=== PATIENT | male | born 1950 | race Caucasian/White ===

== ENCOUNTER 2023-03-16 08:22 | Outpatient (OUT) | payer MEDICARE, SELFPAY ==
[2023-03-16 09:51] LABS: Prostate Specific Antigen Dx <0.13 ng/mL (<=4.00)
== END 2023-03-16 08:23 | disposition home or self-care (01) ==
PROVIDERS: PCP Internal Medicine; Visit Provider Urology
DX: Z85.46 Personal history of malignant neoplasm of prostate (principal)
CPT/HCPCS: 36415; 84153

== ENCOUNTER 2024-03-20 10:20 | Outpatient (OUT) | payer MEDICARE, SELFPAY ==
[2024-03-20 11:45] LABS: Prostate Specific Antigen Dx <0.13 ng/mL (<=4.00)
== END 2024-03-20 10:21 | disposition home or self-care (01) ==
LOC: LAB 10:22
PROVIDERS: PCP Internal Medicine; Visit Provider Urology
DX: Z85.46 Personal history of malignant neoplasm of prostate (principal)
CPT/HCPCS: 36415; 84153

== ENCOUNTER 2024-04-01 10:32 | Outpatient (OUT) | payer MEDICARE, SELFPAY ==
--- NOTE | 2024-04-01 10:35 | US_ITS ---
The [address] [address] Patient Name: YUE DELGADILLO MRN: [id number] date: 1950 Sex: M Assigned Patient Location: Current Patient Location: Accession/Order Number: [id number] Exam Date: 04/01/2024 10:36 Report Date: 04/02/2024 06:26 At the request of: MAIA MADDOX Procedure: US scrotum EXAMINATION: US scrotum HISTORY: Hydrocele N43.3 COMPARISON: No relevant comparison available. TECHNIQUE: High-resolution sonographic imaging of the scrotum and contents was performed. FINDINGS: RIGHT: TESTICLE: Homogeneous echotexture. No visible mass. Color Doppler flow is present. Spectral Doppler demonstrates normal arterial waveform and flow, 2/1 cm/s (PSV/EDV), and normal venous wave flow averaging 1 cm/s. EPIDIDYMIS: Normal size and echogenicity. OTHER: None. LEFT: TESTICLE: Homogeneous echotexture. No visible mass. Color Doppler flow is present. Spectral Doppler demonstrates arterial waveform and flow, 4/2 cm/s (PSV/EDV), and normal venous flow averaging 2 cm/s. Incidental tiny testicular appendage. EPIDIDYMIS: Normal size and echogenicity. OTHER: Large hydrocele 8.5 x 6.7 x 6.1 cm. US/US scrotum IMPRESSION: 1. Large left scrotal hydrocele of uncertain etiology. 2. Unremarkable testicles and epididymides; no mass or findings to suggest epididymitis or orchitis. Electronically authenticated by: SAYRA BARLOW Date: 04/02/2024 06:26
== END 2024-04-01 10:33 | disposition home or self-care (01) ==
LOC: US 10:32
PROVIDERS: PCP Internal Medicine; Visit Provider Urology
DX: N43.3 Hydrocele, unspecified (principal)
CPT/HCPCS: 76870

== ENCOUNTER 2024-05-01 09:50 | Outpatient (OUT) | payer MEDICARE, SELFPAY ==
--- OUTSIDE RECORDS SUMMARY | 2024-05-01 10:08 | XMS_ITS | CCD ---
Author Organization [facility] Care Team Providers Care [employer] Name Role Phone BRIANNA BRUNNER Unavailable Unavailabl e GAYVENUST, MARGO ALLEN Unavailable Unavailable Hiestand, Brianna Yogi Unavailable Unavailabl e GAYVNEUST, MARGO ALLEN Unavailable Unavailable Hiestand, Brianna Calix Unavailable Unavailabl e HIESTAND, BRIANNA YOGI Unavailable Unavailabl Phylicia Melgar Unavailable Unavailable Myesha, Brianna Calix Unavailable UnavailBRIANNA Miller Primary Care Physician VARSHA ., DR CARVALHO Consulting Unavailable MADDOX ., DR CARVALHO Admitting Unavailable HIMARIANELA, DR BRIANNA Mcghee Primary Care Unavailable MADDOX ., DR CARVALHO Attending Unavailable MADDOX ., DR CARVALHO Admitting Unavailable MADDOX ., DR CARVALHO Attending Unavailable MYESHA, DR BRIANNA Mcghee Primary Care Unavailable MADDOX ., DR CARVALHO Consulting Unavailable MADDOX ., DR CARVALHO Consulting Unavailable MADDOX ., DR CARVALHO Admitting Unavailable MADDOX ., DR CARVALHO Attending Unavailable MYESHA, DR BRIANNA Mcghee Primary Care Unavailable Brianna Brunner MD Primary Care Provider NATALYA ROGER Referring Unavailable BRIANNA BRUNNER Primary Care Unavailable ALENA COLMENARES Attending Unavailable OSCAR JOHNSON Attending Unavailable BRIANNA BRUNNER Referring Unavailable BRIANNA BRUNNER Primary Care Unavailable OSCAR JOHNSON Attending Unavailable BRIANNA BRUNNER Referring Unavailable BRIANNA BRUNNER Primary Care Unavailable BRIANNA BRUNNER Primary Care Unavailable FADI MATA Attending Unavailable BALAJI LISA Consulting Unavailable TREY LUNDY Admitting Unavailable ELIS MONK Consulting Unavailable [facility] Consulting Unavailable SEAMUS MARINO Consulting Unavailable FADI MATA Attending Unavailable FADI MATA Referring Unavailable BRIANNA BRUNNER Primary Care Unavailable FADI MATA Attending Unavailable FADI MATA Referring Unavailable HIESTAND, BRIANNA Mcghee Primary Care Unavailable LOGAN ARANA Attending Unavailable HIESTAND, BRIANNA Mcghee Referring Unavailable HIESTAND, BRIANNA Mcghee Primary Care Unavailable HIESTAND, BRIANNA Mcghee Attending Unavailable HIESTAND, BRIANNA Mcghee Referring Unavailable HIESTAND, BRIANNA Mcghee Primary Care Unavailable HIESTAND, BRIANNA Mcghee Referring Unavailable HIESTAND, BRIANNA Mcghee Primary Care Unavailable DARIEN VIRGEN Attending Unavailable HIESTAND, BRIANNA Mcghee Attending Unavailable HIESTAND, BRIANNA cMghee Referring Unavailable HIESTAND, BRIANNA Mcghee Primary Care Unavailable HIESTAND, BRIANNA Mcghee Attending Unavailable HIESTAND, BRIANNA Mcghee Referring Unavailable HIESTAND, BRIANNA Mcghee Primary Care Unavailable HIESTAND, BRIANNA Mcghee Referring Unavailable HIESTAND, BRIANNA Mcghee Primary Care Unavailable HIESTAND, BRIANNA Mcghee Referring Unavailable HIESTAND, BRIANNA Mcghee Primary Care Unavailable LEIDY, REHAB Attending Unavailable HIESTAND, BRIANNA Mcghee Referring Unavailable HIESTAND, BRIANNA Mcghee Primary Care Unavailable LEXIE VILLAGOMEZ Attending Unavailable PHYLICIA GUNDERSON Attending Unavailable HIESTAND, BRIANNA Mcghee Referring Unavailable HIESTAND, BRIANNA Mcghee Primary Care Unavailable HIESTAND, BRIANNA Mcghee Attending Unavailable HIESTAND, BRIANNA Mcghee Referring Unavailable HIESTAND, BRIANNA Mcghee Primary Care Unavailable HIESTAND, BRIANNA Mcghee Attending Unavailable HIESTAND, BRIANNA Mcghee Referring Unavailable HIESTAND, BRIANNA Mcghee Primary Care Unavailable HIESTAND, BRIANNA Mcghee Referring Unavailable HIESTAND, BRIANNA Mcghee Primary Care Unavailable Maia MADDOX Attending Unavailable MADDOX, Maia Marie Attending Unavailable MADDOX, Maia Marie Attending Unavailable MADDOX, Maia R Attending Unavailable MADDOX, Maia R Attending Unavailable Allergies Allergy Classification Reported Allergen(s) Allergy Type Date of Onset Reaction(s) Facility (1 source) amoxicillin / clavulanate; Translations: [Augmentin] Drug Allergy [facility] Repository (20 sources) Ciprofloxacin; Translations: [ciprofloxacin] Drug Allergy 3 Anxiety (finding), [facility] (20 sources) Erythromycin; Translations: [erythromycin] Drug Allergy 3 Feeling nervous (finding), Hives [facility] (6 sources) pork allergenic extract; Translations: [Pork] Drug Allergy Weal (disorder) [facility] (1 source) Ciprofloxacin Drug Allergy [facility] Repository (1 source) Erythromycin Drug Allergy [facility] Repository (1 source) piperazine Drug Allergy [facility] Repository (1 source) Sulfonamides (Antibiotic) Drug allergy (disorder) [facility] Repository (20 sources) Codeine; Translations: [CODEINE] Drug Allergy 3 [facility] (20 sources) Lanolin; Translations: [LANOLIN] Drug Allergy 3 [facility] (20 sources) Lisinopril; Translations: [LISINOPRIL] Drug Allergy 3 Swelling [facility] (20 sources) meloxicam; Translations: [MELOXICAM] Drug Allergy 8 GI Disturbance [facility] (20 sources) pork allergenic extract; Translations: [PORK DERIVED (PORCINE)] Drug Allergy 1 [facility] Work Phone: (20 sources) Sulfonamides (Antibiotic); Translations: [SULFA (SULFONAMIDE ANTIBIOTICS)] Propensity to adverse reactions to drug 3 [facility] (1 source) Amoxicillin; Translations: [AMOXICILLIN] Drug Allergy 3 [facility] Repository (1 source) Terfenadine; Translations: [TERFENADINE] Drug Allergy 3 [facility] Repository (1 source) OTHER; Translations: [OTHER] Propensity to adverse reactions (disorder) 1 [facility] Repository Medications Current Medications Medication Drug Class(es) Dates Sig (Normalized) Sig (Original) [id number] 200 actuat albuterol 0.09 mg/actuat metered dose inhaler (20 sources) beta2-Adrenergic Agonist Start: 01-06-2024 take 2 puff(s) by inhalation every six hours as needed for wheezing albuterol (PROVENTIL HFA;VENTOLIN HFA) 90 mcg/actuation inhaler Inhale 2 puffs every 6 (six) hours as needed for wheezing. 18 g 01/06/2024 Active End: 01-06-2024 take 2 puff(s) by inhalation every six hours as needed for wheezing albuterol (PROVENTIL HFA;VENTOLIN HFA) 90 mcg/actuation inhaler Inhale 2 puffs every 6 (six) hours as needed for wheezing. 01/06/2024 Discontinued (Reorder) amLODIPine 10 mg oral tablet (20 sources) Dihydropyridine Calcium Channel Andry Start: 06-07-2020 End: 04-03-2024 take 1 tablet by mouth once daily in the morning amLODIPine (NORVASC) 10 mg tablet TAKE 1 TABLET BY MOUTH EVERY MORNING 30 tablet 04/03/2024 Active apixaban (6 sources) Factor Xa Inhibitor Start: 01-15-2024 End: 05-01-2024 take 2 tablets by mouth twice daily, then take 1 tablet by mouth twice daily apixaban (ELIQUIS DVT-PE TREAT 30D START) 5 mg (74 tabs) tablets,dose pack tablet Take 2 tablets by mouth twice daily for 7 days, then take 1 tablet twice daily 74 tablet 01/15/2024 05/01/2024 Discontinued Start: 01-15-2024 take 2 tablets by mo uth twice daily, then take 1 tablet by mouth twice daily apixaban (ELIQUIS DVT-PE TREAT 30D START) 5 mg (74 tabs) tablets,dose pack tablet Take 2 tablets by mouth twice daily for 7 days, then take 1 tablet twice daily 74 tablet 01/15/2024 Active aspirin 81 mg delayed release oral tablet (20 sources) Platelet Aggregation Inhibitor, Nonsteroidal Anti-inflammatory Drug Start: 06-07-2020 End: 12-31-2023 take 1 mg by mouth once daily aspirin 81 mg Oral EC Tab mg tab(s), Oral, Daily, Refills(s) 0 Start Date: 06/07/20 Status: Ordered Start: 06-07-2020 take 1 mg by mouth once daily aspirin 81 mg Oral EC Tab mg tab(s), Oral, Daily, Refills(s) 0 Start Date: 06/07/20 Status: Ordered azithromycin 250 mg oral tablet (1 source) Macrolide Antimicrobial Start: 05-21-2023 End: 05-25-2023 azithromycin (ZITHROMAX) 250 mg tablet Indications: Bronchitis Take 2 tablets the first day, then 1 tablet daily for 4 days. 6 tablet 0 05/21/2023 05/25/2023 Active cefdinir 300 mg oral capsule (1 source) Cephalosporin Antibacterial Start: 05-29-2023 End: 06-05-2023 take 1 capsule by mouth in the morning, then take 1 capsule by mouth at bedtime cefDINIR (OMNICEF) 300 mg capsule Take 1 capsule (300 mg total) by mouth in the morning and 1 capsule (300 mg total) before bedtime. Do all this for 7 days. 14 capsule 0 05/29/2023 06/05/2023 Active cefepime 100 mg/ml injectable solution (9 sources) Cephalosporin Antibacterial Start: 12-31-2023 End: 01-09-2024 take 2 g intravenously every eight hours cefepime 100 gram recon soln Infuse 2 g into a venous catheter every 8 (eight) hours for 9 days. 1 each 12/31/2023 01/09/2024 Active cefEPime 2,000 mg in sodium chloride 0.9 % 100 mL IVPB MINI-BAG Plus (9 sources) Start: 12-31-2023 End: 01-09-2024 take 2000 mg intravenously every eight hours cefEPime 2,000 mg in sodium chloride 0.9 % 100 mL IVPB MINI-BAG Plus Infuse 2,000 mg into a venous catheter every 8 (eight) hours for 9 days. 1 each 12/31/2023 01/09/2024 Active Start: 12-31-2023 End: 01-09-2024 take 2000 mg intravenously every eight hours cefEPime 2,000 mg in sodium chloride 0.9 % 100 mL IVPB MINI-BAG Plus Infuse 2,000 mg into a venous catheter every 8 (eight) hours for 9 days. 1 each 12/31/2023 01/09/2024 ciprofloxacin 3 mg/ml / dexamethasone 1 mg/ml otic suspension (13 sources) Corticosteroid, Quinolone Antimicrobial Start: 12-26-2023 End: 12-31-2023 4 drop, right ear, 2 times daily, First dose on Sun12/26/23 at 2100, Look-alike/sound-alike medication - verify indication for use. Start: 12-25-2023 End: 01-10-2024 ciprofloxacin-dexAMETHasone (CIPRODEX) otic suspension Indications: Acute swimmer's ear of right side Administer 4 drops to the right ear in the morning and 4 drops before bedtime. Do all this for 10 days. 7.5 mL 12/31/2023 01/10/2024 Active Fish Oils (5 sources) Start: 06-07-2020 take 1 mg by mouth once daily Fish Oil 1000 mg oral capsule mg cap(s), Oral, Daily, Refills(s) 0 Start Date: 06/07/20 Status: Ordered 120 actuat fluticasone propionate 0.11 mg/actuat metered dose inhaler (20 sources) Corticosteroid Start: 05-22-2023 End: 01-05-2024 take 2 puff(s) by inhalation once daily fluticasone propionate (FLOVENT HFA) 110 mcg/actuation inhaler Inhale 2 puffs once daily. Patient only takes when sick 12 g 3 01/06/2024 Active End: 05-22-2023 take 2 puff(s) by inhalation once daily fluticasone (FLOVENT HFA) 110 mcg/actuation inhaler Inhale 2 puffs once daily. Patient only takes when sick 0 05/22/2023 Discontinued (Reorder) hydroCHLOROthiazide 25 mg oral tablet (5 sources) Thiazide Diuretic Start: 06-07-2020 take 1 mg by mouth once daily hydrochlorothiazide 25 mg oral tablet mg tab(s), Oral, Daily, Refills(s) 0 Start Date: 06/07/20 Status: Ordered Multi Vitamin+ (5 sources) Start: 06-07-2020 Multi Vitamin+ Refill(s) 0 Start Date: 06/07/20 Status: Ordered xhgdjpiv-grox-LD-calcium &mins (THERAGRAN-M) 9 mg iron-400 mcg tablet (20 sources) uugllpvs-rden-WB -calciu m &mins (THERAGRAN-M) 9 mg iron-400 mcg tablet Take 1 tablet by mouth in the morning. ljsuxneu-kuhc-CN -calcium &mins (THERAGRAN-M) 9 mg iron-400 mcg tablet Take 1 tablet by mouth in the morning. Suspended fdjebjem-eosc-TQ -calcium &mins (THERAGRAN-M) 9 mg iron-400 mcg tablet Take 1 tablet by mouth in the morning. Active atifwfad-rign-LO -calcium &mins (THERAGRAN-M) 9 mg iron-400 mcg tablet Take 1 tablet by mouth in the morning. 0 Active nirmatrelvir-ritonavir (PAXLOVID) tablets (4 sources) Start: 01-03-2024 End: 01-08-2024 nirmatrelvir-ritonavir (PAXLOVID) tablets Take 3 tablets by mouth in the morning and 3 tablets before bedtime. Do all this for 5 days. For doses of 3 tablets - Take two 150 mg nirmatrelvir (pink) tablets at the same time as one 100 mg ritonavir (white) tablet per dose.. 30 tablet 01/03/2024 01/08/2024 Active omega-3 fatty acids-fish oil 300-1,000 mg capsule (20 sources) take 1 capsule by mouth once daily omega-3 fatty acids-fish oil 300-1,000 mg capsule Take 1,200 mg by mouth daily. take 1 capsule by mouth once maryellen ly omega-3 fatty acids-fish oil 300-1,000 mg capsule Take 1,200 mg by mouth daily. Suspended take 1 capsule by mouth once maryellen ly omega-3 fatty acids-fish oil 300-1,000 mg capsule Take 1,200 mg by mouth daily. Active take 1 capsule by mouth once maryellen ly omega-3 fatty acids-fish oil 300-1,000 mg capsule Take 1,200 mg by mouth daily. 0 Active omeprazole 20 mg delayed release oral capsule (20 sources) Proton Pump Inhibitor Start: 2022 End: 04-03-2024 take 2 capsules by mouth once daily in the morning omeprazole (PriLOSEC) 20 mg capsule TAKE 2 CAPSULES BY MOUTH EVERY MORNING 60 capsule 04/03/2024 Active Start: 06-07-2020 take 1 capsule by [facility] once daily omeprazole 20 mg Cap-DR 20 mg = 1 cap(s), Oral, Daily, # 30 cap(s), Refills(s) 0 Start Date: 06/07/20 Status: Ordered omeprazole 20 mg Cap-DR (1 source) Start: 06-07-2020 take 1 capsule by mouth once daily omeprazole 20 mg Cap-DR 20 mg = 1 cap(s), Oral, Daily, # 30 cap(s), Refills(s) 0 Start Date: 06/07/20 Status: Ordered simvastatin 20 mg oral tablet (20 sources) HMG-CoA Reductase Inhibitor Start: 06-07-2020 End: 05-07-2023 take 1 tablet by mouth once daily in the morning simvastatin (ZOCOR) 20 mg tablet TAKE ONE TABLET BY MOUTH EVERY MORNING 90 tablet 3 05/07/2023 Active traMADol hydrochloride 50 mg oral tablet (11 sources) Opioid Agonist Start: 12-26-2023 End: 12-31-2023 take 1 tablet by mouth every eight hours as needed for pain 75 mg, oral, Every 8 hours PRN, severe pain - pain scale 7-10, Starting on Sun12/26/23 at 1719, Look-alike/sound-a like medication - verify indication for use. Start: 12-19-2023 End: 01-05-2024 take 1 tablet by mouth every eight hours as needed for pain traMADoL (ULTRAM) 50 mg tablet Indications: Acute swimmer's ear of right side Take 1 tablet (50 mg total) by mouth every 8 (eight) hours as needed for pain for up to 5 days. 15 tablet 12/31/2023 01/05/2024 Active Completed/Discontinued Medications Medication Drug Class(es) Dates Sig (Normalized) Sig (Original) acetaminophen 500 mg oral tablet (1 source) Start: 12-26-2023 End: 12-28-2023 take 1 tablet by mouth every eight hours 1,000 mg, oral, Every 8 hours, First dose on Sun12/26/23 at 1730, For 2 days acetic acid 20 mg/ml / hydrocortisone 10 mg/ml otic solution (3 sources) Corticosteroid Start: 12-05-2023 End: 12-31-2023 hydrocortisone-ac etic acid (VOSOL-HC) otic solution Administer 4 drops to the right ear 3 (three) times a day. 10 mL 12/05/2023 12/31/2023 Discontinued (Stop Taking at Discharge) allopurinol 100 mg oral tablet (20 sources) Xanthine Oxidase Inhibitor Start: 12-27-2023 End: 12-31-2023 take 300 mg by mouth once daily 300 mg, oral, Daily, First dose on Sun12/27/23 at 0900, Look-alike/sound- alike medication - verify indication for use. Start: 06-07-2020 End: 05-07-2023 take 1 tablet by mouth once daily in the morning allopurinoL (ZYLOPRIM) 300 mg tablet TAKE ONE TABLET BY MOUTH EVERY MORNING 90 tablet 3 05/07/2023 Active amoxicillin 875 mg / clavulanate 125 mg oral tablet (3 sources) Penicillin-class Antibacterial Start: 12-20-2023 End: 01-03-2024 take 1 tablet by mouth once amoxicillin-pot clavulanate (AUGMENTIN) 875-125 mg per tablet Indications: Acute swimmer's ear of right side Take 1 tablet by mouth every 12 (twelve) hours for 14 days. 28 tablet 12/20/2023 12/31/2023 Discontinued (Stop Taking at Discharge) ampicillin-sulb actam (UNASYN) 3,000 mg in sodium chloride 0.9 % 100 mL IVPB-MBP (2 sources) Start: 12-27-2023 End: 12-27-2023 take 3000 mg intravenously every six hours 3,000 mg, intravenous, at 200 mL/hr, Administer over 30 Minutes, Every 6 hours, First dose (after last reorder) on Sun12/27/23 at 1015, ADD-VANTAGE/MBP- Discard 8 hours after activating; dissolve drug prior to administration., Indication: Skin and soft tissue infection Start: 12-26-2023 End: 12-26-2023 3,000 mg, intravenous, at 20 0 mL/hr, Administer over 30 Minutes, Once, On Sun12/26/23 at 1305, For 1 dose, ADD-VANTAGE/MBP- Discard 8 hours after activating; dissolve drug prior to administration., Indication: Skin and soft tissue infection atorvastatin 10 mg oral tablet (1 source) HMG-CoA Reductase Inhibitor Start: 12-27-2023 End: 12-31-2023 take 10 mg by mouth once daily 10 mg, oral, Daily, First dose on Sun12/27/23 at 0900, Look-alike/sound-alike medication - verify indication for use. cefEPime (MAXIPIME) 2,000 mg in sodium chloride 0.9 % 100 mL IVPB-MBP (1 source) Start: 12-27-2023 End: 12-31-2023 take 2000 mg intravenously every eight hours 2,000 mg, intravenous, at 25 mL/hr, Administer over 4 Hours, Every 8 hours, First dose on Sun12/27/23 at 2130, ADD-VANTAGE/MBP- Discard 24 hours after activating; dissolve drug prior to administration. Protect dry powder vial from light., Indication: Other, Specify: otomastoiditis 1 ml dexamethasone phosphate 10 mg/ml injection (1 source) Corticosteroid Start: 12-27-2023 End: 12-28-2023 take 10 mg intravenously every eight hours 10 mg, intravenous, Every 8 hours, First dose on Sun12/27/23 at 1345, For 3 doses, May alter blood glucose or insulin requirements. Look-alike/sound-alike medication - verify indication for use. dexamethasone 1 mg/ml / tobramycin 3 mg/ml ophthalmic suspension (3 sources) Aminoglycoside Antibacterial, Corticosteroid Start: 12-20-2023 End: 12-31-2023 take 4 drop(s) into the eye(s) every four hours tobramycin-dexAMETHasone (Tobradex) ophthalmic solution Indications: Acute swimmer's ear of right side Administer 4 drops to the right ear every 4 (four) hours while awake for 7 days. 10 mL 12/20/2023 12/31/2023 Discontinued (Stop Taking at Discharge) 0.4 ml enoxaparin sodium 100 mg/ml prefilled syringe (1 source) Low Molecular Weight Heparin Start: 12-28-2023 End: 12-31-2023 inject 40 mg by subcutaneous injection once daily 40 mg, subcutaneous, Daily, First dose on Sun12/28/23 at 1430, Look-alike/sound-alike medication - verify indication for use. glucagon (rdna) 1 mg injection (1 source) Antihypoglycemic Agent Start: 12-26-2023 End: 12-31-2023 150 ml glucose 50 mg/ml injection (3 sources) Start: 12-26-2023 End: 12-31-2023 Start: 12-26-2023 End: 12-31-2023 Start: 12-26-2023 End: 12-31-2023 1 ml hydrALAZINE hydrochloride 20 mg/ml injection (1 source) Arteriolar Vasodilator Start: 12-28-2023 End: 12-31-2023 take 10 mg intravenously every six hours as needed 10 mg, intravenous, Every 6 hours PRN, high blood pressure, Starting on Sun12/28/23 at 0022, For systolic blood pressure greater than 155 mmHg Look-alike/sound-alike medication - verify indication for use. Administer IV doses as a slow IV push; maximum rate: 5 mg/minute. iohexoL (OMNIPAQUE) 300 mg iodine/mL 100 mL (1 source) Start: 12-26-2023 End: 12-26-2023 100 mL, intravenous, Once in imaging, contrast, Starting on Sun12/26/23 at 1626, For 1 dose, VESICANT (RED) 1 ml ketorolac tromethamine 30 mg/ml injection (2 sources) Nonsteroidal Anti-inflammator y Drug, Cyclooxygenase Inhibitor Start: 12-27-2023 End: 12-27-2023 15 mg, intravenous, Once, On [place] 12/27/23 at 1500, For 1 dose, Look-alike/sound-alike medication - verify indication for use. Duration of therapy is not to exceed 5 days. Maximum recommended dose + 120mg/24 hours. methylPREDNISolone (3 sources) Corticosteroid Start: 12-20-2023 End: 12-26-2023 methylPREDNISolone (MEDROL, JACQUELIN,) 4 mg tablet Indications: Acute swimmer's ear of right side Take as directed 21 tablet 12/20/2023 12/26/2023 Discontinued (Therapy completed) Start: 12-20-2023 methylPREDNISo lone (MEDROL, JACQUELIN,) 4 mg tablet Indications: Acute swimmer's ear of right side Take as directed 21 tablet 12/20/2023 Active pantoprazole 40 mg delayed release oral tablet (1 source) Proton Pump Inhibitor Start: 12-27-2023 End: 12-31-2023 40 mg, oral, Daily, First dose on [place] 12/27/23 at 0600, Look-alike/sound-alike medication - verify indication for use. If patient is receiving enteral feeding, consider alternative PPI or continue IV pantoprazole until the delayed-release tablet can be taken orally, Indication: GERD polyethylene glycol 3350 48278 mg powder for oral solution (2 sources) Osmotic Laxative Start: 12-27-2023 End: 12-31-2023 17 g, oral, Once, On [place] 12/27/23 at 1500, For 1 dose, Look-alike/sound-alike medication - verify indication for use. Dissolve 1 packet (17 gm) in 8 ounces of water, juice, soda, coffee or tea. Sodium Chloride (8 sources) Start: 12-31-2023 End: 12-31-2023 take 10 mL intravenously every twelve hours sodium chloride 0.9 % flush 10 mL Start: 12-26-2023 End: 12-31-2023 3 mL, intravenous, Every 12 hours scheduled, First dose on Sun12/26/23 at 2100 Start: 12-26-2023 End: 12-31-2023 take 20 mL intravenously every hour as needed 20 mL/hr, intravenous, Continuous PRN, to maintain patency of lines, Starting on Sun12/26/23 at 1719 Start: 12-26-2023 End: 12-31-2023 take 25 mL intravenously every hour as needed 25 mL, intravenous, at 100 mL/hr, Administer over 15 Minutes, As needed, line care, line care after IVPB administration, Starting on Sun12/26/23 at 1719 Start: 12-26-2023 End: 12-26-2023 80 mL, intravenous, Once in imaging, pre/post contrast, Starting on Sun12/26/23 at 1626, For 1 dose Start: 12-26-2023 End: 12-31-2023 Start: 12-26-2023 End: 12-26-2023 take 250 mL intravenously every hour 250 mL/hr, intravenous, Continuous, Starting on Sun12/26/23 at 1315, For 4 hours Problems Active Problems Problem Classification Problem Date Documented Date Episodic/Chronic Asthma (20 sources) Asthma; Translations: [Uncomplicated mild persistent asthma] Onset: 05-14-2017 06-07-2020 Chronic Cancer of prostate (20 sources) Malignant tumor of prostate; Translations: [Malignant neoplasm of prostate] Onset: 04-08-2021 06-28-2020 Chronic Cancer of prostate (14 sources) Personal history of malignant neoplasm of prostate; Translations: [History of malignant neoplasm of prostate] Onset: 07-25-2021 Episodic Disorders of lipid metabolism (20 sources) Hyperlipidemia; Translations: [Hyperlipidemia, unspecified] Onset: 05-14-2017 06-07-2020 Chronic Esophageal disorders (20 sources) Gastroesophageal reflux disease; Translations: [Gastro-esophageal reflux disease without esophagitis] Onset: 05-14-2017 05-14-2017 Chronic Essential hypertension (20 sources) Hypertensive disorder; Translations: [Essential hypertension] Onset: 05-14-2017 06-07-2020 Chronic Genitourinary symptoms and ill-defined conditions (15 sources) Stress incontinence (female) (male); Translations: [Genuine stress incontinence] Onset: 07-21-2021 Chronic Genitourinary symptoms and ill-defined conditions (10 sources) Nocturia; Translations: [Poor stream of urine] 12-20-2020 Episodic Gout and other crystal arthropathies (20 sources) Gout; Translations: [Gout, unspecified] Onset: 05-14-2017 06-07-2020 Chronic Hyperplasia of prostate (5 sources) Benign prostatic hyperplasia 08-11-2020 Chronic Nausea and vomiting (2 sources) Nausea; Translations: [Nausea] Onset: 01-08-2024 Episodic Osteoarthritis (6 sources) Arthritis; Translations: [Primary osteoarthritis, left shoulder] Onset: 05-24-2023 06-07-2020 Chronic Other connective tissue disease (1 source) Adhesive capsulitis of left shoulder; Translations: [Adhesive capsulitis of left shoulder] Onset: 05-24-2023 Episodic Other connective tissue disease (1 source) Impingement syndrome of left shoulder; Translations: [Impingement syndrome of left shoulder] Onset: 05-24-2023 Episodic Other diseases of bladder and urethra (7 sources) Male urethral stricture; Translations: [Unspecified urethral stricture, male, unspecified site] Onset: 07-25-2021 Episodic Other ear and sense organ disorders (2 sources) Bilateral hearing loss; Translations: [Sensorineural hearing loss, unilateral, left ear, with restricted hearing on the contralateral side] 12-25-2023 Chronic Other ear and sense organ disorders (7 sources) Mixed conductive AND sensorineural hearing loss; Translations: [Mixed conductive and sensorineural hearing loss, unilateral, right ear with restricted hearing on the contralateral side] 12-25-2023 Chronic Other ear and sense organ disorders (1 source) Malignant otitis externa, right ear; Translations: [Malignant otitis externa, right ear] Onset: 12-26-2023 Chronic Other ear and sense organ disorders (2 sources) Sensorineural hearing loss, unilateral, left ear, with restricted hearing on the contralateral side; Translations: [Sensorineural hearing loss, unilateral, left ear, with restricted hearing on the contralateral side] Onset: 12-17-2023 Chronic Other ear and sense organ disorders (2 sources) Mixed conductive and sensorineural hearing loss, unilateral, right ear with restricted hearing on the contralateral side; Translations: [Mixed conductive and sensorineural hearing loss, unilateral, right ear with restricted hearing on the contralateral side] Onset: 12-17-2023 Chronic Other ear and sense organ disorders (1 source) Malignant otitis externa; Translations: [Malignant otitis externa, right ear] 12-26-2023 Chronic Other ear and sense organ disorders (1 source) Otitis externa Onset: 12-17-2023 Chronic Other ear and sense organ disorders (2 sources) Acute otitis externa; Translations: [Swimmer's ear, right ear] 12-25-2023 Episodic Other ear and sense organ disorders (5 sources) Otalgia, right ear; Translations: [Otalgia, unspecified] Onset: 12-17-2023 12-25-2023 Episodic Other ear and sense organ disorders (2 sources) Ear problem Onset: 12-17-2023 Episodic Other ear and sense organ disorders (2 sources) Swimmer's ear, right ear; Translations: [Swimmer's ear, right ear] Onset: 12-17-2023 Episodic Other ear and sense organ disorders (2 sources) Other infective otitis externa, right ear; Translations: [Other infective otitis externa, right ear] Onset: 01-08-2024 Episodic Other ear and sense organ disorders (4 sources) Bilateral tinnitus; Translations: [Tinnitus, bilateral] 02-05-2024 Episodic Other ear and sense organ disorders (1 source) Tinnitus, bilateral; Translations: [Tinnitus, bilateral] Onset: 02-05-2024 Episodic Other ear and sense organ disorders (1 source) Swimmer's ear, unspecified ear; Translations: [Swimmer's ear, unspecified ear] Onset: 12-17-2023 Episodic Other ear and sense organ disorders (1 source) Otorrhea, right ear; Translations: [Otorrhea, right ear] Onset: 12-17-2023 Episodic Other male genital disorders (1 source) Hydrocele of testis; Translations: [Hydrocele, unspecified] Onset: 03-31-2024 Episodic Other male genital disorders (1 source) Disorder of male genital organ 03-31-2024 Episodic Other screening for suspected conditions (not mental disorders or infectious disease) (1 source) CT of head abnormal; Translations: [Abnormal findings on diagnostic imaging of skull and head, not elsewhere classified] 02-05-2024 Episodic Residual codes; unclassified (2 sources) Edema of right upper arm; Translations: [Localized edema] 01-14-2024 Episodic Residual codes; unclassified (1 source) Localized edema; Translations: [Localized edema] Onset: 01-15-2024 Episodic Rheumatoid arthritis and related disease (1 source) Ankylosing spondylitis of cervical region; Translations: [Ankylosing spondylitis of cervical region] Onset: 05-24-2023 Chronic Substance-related disorders (5 sources) Smoker 06-07-2020 Chronic Comment on above: Added secondary to d ocumentation in Social History. Unclassified (5 sources) Long-term current use of aspirin 12-20-2020 Unclassified (1 source) Acute swimmer's ear of right side Onset: 12-25-2023 Unclassified (1 source) Hospital Follow-up Onset: 02-05-2024 Unclassified (1 source) Ear Swelling Onset: 12-20-2023 Unclassified (1 source) continued right ear pain Onset: 12-10-2023 Unclassified (1 source) Earache Onset: 11-30-2023 Unclassified (1 source) Annual Exam Onset: 04-23-2023 Viral infection (2 sources) COVID-19; Translations: [COVID-19] Onset: 01-08-2024 Past or Other Problems Problem Classification Problem Date Documented Date Episodic/Chronic Chronic obstructive pulmonary disease and bronchiectasis (1 source) Bronchitis, not specified as acute or chronic; Translations: [Bronchitis, not specified as acute or chronic] Onset: 05-21-2023 Episodic Conditions associated with dizziness or vertigo (20 sources) Vertigo; Translations: [Dizziness and giddiness] Onset: 05-14-2017 05-14-2017 Episodic Mood disorders (20 sources) Mood disorders Onset: 04-19-2022 Resolved: 05-01-2024 04-19-2022 Other diseases of bladder and urethra (1 source) Unspecified urethral stricture, male, unspecified site; Translations: [UNSP URETHRAL STRCT MALE UNSP SITE] Onset: 01-22-2022 Episodic Other non-traumatic joint disorders (1 source) Pain in left shoulder; Translations: [Pain in left shoulder] Onset: 05-21-2023 Episodic Other non-traumatic joint disorders (1 source) Shoulder pain Onset: 05-21-2023 Episodic Other upper respiratory infections (1 source) Upper respiratory infection Onset: 05-21-2023 Episodic Otitis media and related conditions (20 sources) Finding of fluid behind tympanic membrane; Translations: [Unspecified nonsuppurative otitis media, right ear] Onset: 12-25-2023 12-25-2023 Episodic Results Test Name Value Interpretation Reference Range Facility Ambulatory Visit Summaryon 0 03-31-2024 Ambulatory Visit Summary Ambulatory Visit Summary YUE DELGADILLO :1950 Visit Date:03/31/2024 Ambulatory Visit Instructions Your Diagnosis Personal history of prostate cancer Stress incontinence Hydrocele Tests Performed US Scrotum (Contents) -- Results Pending -- Please visit your patient portal for your results or contact your primary care physician. Your Care Team Attending Physician - Maia MADDOX MD Primary Care Physician - BRIANNA BRUNNER MD This Is Your Medications List Contact prescribing physician if questions or concerns allopurinol (allopurinol 300 mg Tab) amlodipine (amLODIPine 10 mg Tab) aspirin (aspirin 81 mg Oral EC Tab) hydrochlorothiazide (hydrochlorothiazide 25 mg oral tablet) multivitamin (Multi Vitamin+) omega-3 polyunsaturated fatty acids (Fish Oil 1000 mg oral capsule) omeprazole (omeprazole 20 mg Cap-DR) simvastatin (simvastatin 20 mg Tab) Procedures Performed Radical prostatectomy (08/05/2020), Transrectal needle biopsy of prostate (06/17/2020), Appendectomy, Colonoscopy, Knee replacement. Discharge Vitals Temperature (Oral) 36.8 ???C Heart Rate (Peripheral) 84 Blood Pressure 126/80 Height 160 cm Height 63 in Weight 92.2 kg Weight 203.266 lb BMI 36.02 What to do next You Need to Schedule the Following Appointments Follow Up with VARSHA MCPHERSON, IVELISSE Quinones When: Where: [facility] [address] , [place] [address]- Medications What How Much When Instructions Unchanged allopurinol (allopurinol 300 mg Tab) By Mouth Every day Contact prescribing physician if questions or concerns Unchanged amlodipine (amLODIPine 10 mg Tab) By Mouth Every day Contact prescribing physician if questions or concerns Unchanged aspirin (aspirin 81 mg Oral EC Tab) By Mouth Every day Contact prescribing physician if questions or concerns Unchanged hydrochlorothiazide (hydrochlorothiazide 25 mg oral tablet) By Mouth Every day Contact prescribing physician if questions or concerns Unchanged multivitamin (Multi Vitamin+) Contact prescribing physician if questions or concerns Unchanged omega-3 polyunsaturated fatty acids (Fish Oil 1000 mg oral capsule) By Mouth Every day Contact prescribing physician if questions or concerns Unchanged omeprazole (omeprazole 20 mg Cap-DR) 1 Capsules By Mouth Every day Contact prescribing physician if questions or concerns Unchanged simvastatin (simvastatin 20 mg Tab) By Mouth Once a day (at bedtime) Contact prescribing physician if questions or concerns Allergies Cipro (Anxiousness) Pork (Hives) erythromycin (Nervousness) Problems Ongoing - Any problem that you are currently receiving treatment for. Arthritis Aspirin long-term use Asthma BPH with elevated PSA Gout Hydrocele Hyperlipidemia Hypertension Nocturia Personal history of prostate cancer Prostate cancer Stress incontinence Urethral stricture in male Weak urine stream Historical - Any problem that you are no longer receiving treatment for. Smoker Patient Survey You may receive a survey via text or e-mail asking about your office visit. Please share your experience with us by completing your survey. We appreciate your feedback and thank you for choosing us for your care. Education Materials Hydrocelectomy, Adult A hydrocelectomy is a surgical procedure to remove a collection of fluid (hydrocele) from the scrotum. The scrotum is the pouch that holds the testicles. You may need to have this procedure if a hydrocele is causing painful swelling in your scrotum. Tell a health care provider about: ??? Any allergies you have. ??? All medicines you are taking, including vitamins, herbs, eye drops, creams, and byxu-jkt-crftvyy medicines. ??? Any problems you or family members have had with anesthetic medicines. ??? Any bleeding problems you have. ??? Any surgeries you have had. ??? Any medical conditions you have. What are the risks? Generally, this is a safe procedure. However, problems may occur, including: ??? Bleeding into the scrotum (scrotal hematoma). ??? Damage to nearby structures or organs, including to the testicle or the tube that carries sperm out of the testicle (vas deferens). ??? Infection. ??? Allergic reactions to medicines. What happens before the procedure? When to stop eating and drinking Follow instructions from your health care provider about what you may eat and drink before your procedure. These may include: ??? 8 hours before your procedure ? Stop eating most foods. Do not eat meat, fried foods, or fatty foods. ? Eat only light foods, such as toast or crackers. ? All liquids are okay except energy drinks and alcohol. ??? 6 hours before your procedure ? Stop eating. ? Drink only clear liquids, such as water, clear fruit juice, black coffee, plain tea, and sports drinks. ? Do not drink energy drinks or (more content not included)... Normal [facility] Urology Office/Clinic Noteon 03-31-2024 Urology Office/Clinic Note Urology Office/Clinic Note Chief Complaint 1 yr w/ PSA HPI Staff 73yr old male pt here for 1yr f/u with PSA. TRUS/Bx 06/17/20. S/p radical retropubic prostatectomy 08/05/20. Previous Dx: personal history of prostate cancer, stress incontinence PSA: 07/18/21 - <0.13 01/18/22 - <0.13 07/07/22 - <0.13 03/16/23 - <0.13 03/20/24 - <0.13 pt states the only concern he has is left nut is big he states it has been like this since the surgery, but seems to be bigger now. he feels it is the size of a baseball. Dysuria: no Incomplete bladder emptying: no Hematuria:no Frequency: q3-4 hrs Urgency: no Nocturia: 1x Stream: normal Leaking: rarely Post void dripping:no Wearing pads/ Depends: Urge incontinence: no Stress incontinence: yes Incontinence without Sensory Awareness:no Abdominal pain: no Flank pain: no Sexual complaints: History of Present Illness Tests reviewed: UA, PSA I have reviewed the previous health record information and history for this patient from Dr. Maddox. I have reviewed and verified the staff HPI to be accurate for this encounter. Review of Systems PHQ Score Initial Depression Screen Score: 0 SCORE ROS - Provider Constitutional: denies weight loss, denies hot flashes. Eyes: denies eye problems. Gastrointestinal: denies nausea, denies vomiting. Cardiovascular: denies chest pain or angina. Integumentary: no dryness Musculoskeletal: denies musculoskeletal symptoms. ENMT: denies otolaryngeal symptoms. Respiratory: no shortness of breath. Heme/Lymph: denies easy bleeding tendency, denies easy bruising tendency. Psychiatric: no confusion, no anxiety. Genitourinary: See HPI. Physical Exam Vitals & Measurements T: 36.8 ???C(Oral) HR: 84(Peripheral) BP: 126/80 HT: 63 in HT: 160 cm WT: 92.2 kg WT: 203.266 lb BMI: 36.02 General Appearance: alert, no distress, well nourished, well developed male. : no hernia. testicle not palpable, tense, large L hydrocele. Assessment/Plan 1. Personal history of prostate cancer (Z85.46: Personal history of malignant neoplasm of prostate) PSA: 07/18/21 - <0.13 01/18/22 - <0.13 07/07/22 - <0.13 03/16/23 - <0.13 03/20/24 - <0.13 TRUS/Bx 06/17/20 - G8 (4+4) x 6. S/p radical retropubic prostatectomy 08/05/20 - G7 (4+3). PSA stable, remains undetectable. Will cont to monitor. Follow up 1 yr with PSA or sooner if needed. Pt understands and agrees with plan. 2. Stress incontinence (N39.3: Stress incontinence (female) (male)) Ongoing. Wears 1 thin pad per day for safety. Sometimes doesn't leak at all during the day. Typically with severe straining or cough. 3. Hydrocele (N43.3: Hydrocele, unspecified) Shares L testicle has been enlarged since last OV though now it is larger. Aches when he performs strenuous activity like yard work. This is the first time enlarged testicle has been mentioned. Shares both testicles were enlarged at time of operation (presumedly prostatectomy) but the R one shrunk back to normal size, whereas the L one has increased. L side larger since last yr. Educated pt on hydroceles, does not require intervention unless it is bothersome. Explained hydrocelectomy. PE: no hernia. testicle not palpable, tense, large L hydrocele. -Schedule scrotal US. Review results over the phone. -Pt to call if he would like to schedule L hydrocelectomy. The procedure risks, benefits, and treatment alternatives have been discussed with the patient. These include bleeding, infection, recurrence of fluid collection in the scrotum in 10-15%, and need for additional procedures, among others. Full informed consent has been obtained. Will order General anesthesia. Follow-up With When Contact Information VARSHA MCPHERSON, Maia Marie, [facility] [address], [place] [address]- Additional Instructions: scrotal US (wo appt, will call w results) then 1 yr with PSA Patient Education Hydrocelectomy, Adult Hydrocele, Adult Kegel Exercises I, Audrey Choudhury, personally scribed for Dr. Maddox on 03/31/2024 09:43:27. . Documentation recorded by the scribe, Audrey Choudhury, accurately reflects the services(s) I performed and decisions made by me. Authenticated by Dr. Maddox on 03/31/2024 09:45:37. Problem List/Past Medical History Ongoing Arthritis Aspirin long-term use Asthma BPH with elevated PSA Gout Hydrocele Hyperlipidemia Hypertension Nocturia Personal history of prostate cancer Prostate cancer Stress incontinence Urethral stricture in male Weak urine stream Historical Smoker Procedure/Surgical History Radical prostatectomy (08/05/2020), Transrectal needle biopsy of prostate (06/17/2020), Appendectomy, Colonoscopy, Knee replacement. Medications allopurinol 300 mg Tab, Oral, Daily amLODIPine 10 mg Tab, Oral, Daily aspirin 81 mg Oral EC Tab, Oral, Daily Fish Oil 1000 mg oral capsule, Oral, Daily hydrochlor (more content not included)... Normal [facility] Comment on above: Result Comment: Elec tronically Signed By: Maia MADDOX MD\.br\Date and Time Signed: 03/31/24 09:45 EST\.br\Electronically Co-Signed By: Audrey Choudhury\.br\Date and Time Co-Signed: 03/31/24 09:44 EST 36on 01-08-2024 36 Line will be removed . By Valentin. Orders Given. [facility] 36 I called and spoke w ith Ms Stephens the daughter she left message for Chanelle Colon his med coordinator to return my call. [facility] 36 The patient's midlin e has failed. Please have home care go out and remove. They were going to send him to the emergency department for replacement, but I am transitioning him to oral antibiotics, so do not have him go to the emergency department. [facility] Telemedicineon 01-08-2024 Telemedicine [phone] MingoSusy Cifuentes 1950 [facility] Department [place] 01/08/2024 DARIEN AMATO [facility] No family history on file Level of Service:[id number] RI OFFICE/OUTPATIENT ESTABLISHED MOD MDM 30 MIN [facility] Telephoneon 01-08-2024 Telephone [phone] MingoSusy Cifuentes 1950 [facility] 01/08/2024 DARIEN AMATO [facility] No family history on file [facility] 36on 01-04-2024 36 Cherise called in april strickland patient's 01/08/24 appointment. He tested positive for Covid on Sunday and she tested positive this morning they would like to know if he should still keep the 01/08/24 appointment or reschedule. Please advise [facility] Telephoneon 01-04-2024 Telephone [phone] Delgadillo,Ri peterson Cifuentes 1950 [facility] Department [place] 01/04/2024 DARIEN AMATO [facility] No family history on file [facility] 36on 01-03-2024 36 OPAT patient. [facility] Telephoneon 01-03-2024 Telephone [phone] MingoSusy Cifuentes 1950 [facility] Department [place] 01/03/2024 [facility]ARIEN AMATO [facility] No family history on file [facility] Bacteria identified Aer cx N om (Bld)on 12-31-2023 Service comment (Unsp spec) [Interp] NO GROWTH 5 DAYS [facility] CBC AND AUTO DIFFon 12-31-19 ABSOLUTE BASOPHIL 0.0 X10E9/L Normal 0.0-0.2 [facility] Comment on above: Performed By: #### C ALEX, BMP #### [facility] ([id number]) [address], [address] [place] [address] ABSOLUTE NEUTROPHIL 6.6 X10E9/L Normal 1.5-6.6 [facility] Comment on above: Performed By: #### C ALEX, BMP #### [facility] ([id number]) [address], [address] [place] [address] Basophils/100 WBC (Bld) 0.3 % Normal [facility] Comment on above: Performed By: #### Sandi JOHNSON, BMP #### [facility] ([id number]) [address], [address] [place] [address] Eosinophils (Bld) [#/Vol] 0.2 10*3/uL Normal 0.0-0.4 [facility] Comment on above: Performed By: #### Sandi JOHNSON, BMP #### [facility] ([id number]) [address], [address] [place] [address] Eosinophils/100 WBC (Bld) 2.1 % Normal [facility] Comment on above: Performed By: #### Sandi JOHNSON, BMP #### [facility] ([id number]) [address], [address] [place] [address] Erythrocyte distribution width (RBC) [Ratio] 14.4 % Normal 11.5-15.0 [facility] Comment on above: Performed By: #### Sandi JOHNSON, BMP #### [facility] ([id number]) [address], [address] [place] [address] Hematocrit (Bld) [Volume fraction] 51.0 % High 39-49 [facility] Comment on above: Performed By: #### C BCA, BMP #### [facility] ([id number]) [address], [address] [place] [address] Hemoglobin (Bld) [Mass/Vol] 17.9 g/dL High 13.0-17.0 [facility] Comment on above: Performed By: #### C BCA, BMP #### [facility] ([id number]) [address], [address] [place] [address] Lymphocytes (Bld) [#/Vol] 1.0 10*3/uL Normal 1.0-3.5 [facility] Comment on above: Performed By: #### C ALEX, BMP #### [facility] ([id number]) [address], [address] [place] [address] Lymphocytes/100 WBC (Bld) 12.0 % Normal [facility] Comment on above: Performed By: #### C BCA, BMP #### [facility] ([id number]) [address], [address] [place] [address] MCH (RBC) [Entitic mass] 32.5 pg Normal 27-34 [facility] Comment on above: Performed By: #### C BCA, BMP #### [facility] ([id number]) [address], [address] [place] [address] MCHC (RBC) [Mass/Vol] 35.1 g/dL Normal 32-36 [facility] Comment on above: Performed By: #### C BCA, BMP #### [facility] ([id number]) [address], [address] [place] [address] MCV (RBC) [Entitic vol] 93 fL Normal 80-100 [facility] Comment on above: Performed By: #### C BCA, BMP #### [facility] ([id number]) [address], [address] [place] [address] Monocytes (Bld) [#/Vol] 0.9 10*3/uL Normal 0-0.9 [facility] Comment on above: Performed By: #### C ALEX, BMP #### [facility] ([id number]) [address], [address] [place] [address] Monocytes/100 WBC (Bld) 10.2 % Normal [facility] Comment on above: Performed By: #### C ALEX, BMP #### [facility] ([id number]) [address], [address] [place] [address] Neutrophils/100 WBC (Bld) 75.4 % Normal [facility] Comment on above: Performed By: #### C ALEX, BMP #### [facility] ([id number]) [address], [address] [place] [address] Platelet mean volume (Bld) [Entitic vol] 8.6 fL Normal 7-12 [facility] Comment on above: Performed By: #### C ALEX, BMP #### [facility] ([id number]) [address], [address] [place] [address] Platelets (Bld) [#/Vol] 138 10*3/uL Low 150-450 [facility] Comment on above: Performed By: #### C ALEX, BMP #### [facility] ([id number]) [address], [address] [place] [address] RBC COUNT 5.51 X10E12/L Normal 4.10-5.70 [facility] Comment on above: Performed By: #### C ALEX, BMP #### [facility] ([id number]) [address], [address] [place] [address] WBC (Bld) [#/Vol] 8.7 10*3/uL Normal 4.0-11.0 [facility] Comment on above: Performed By: #### C BCA, BMP #### [facility] ([id number]) [address] [place] [address] CBC auto differentialon 10-0 Basophils (Bld) [#/Vol] 0.0 10*3/uL [facility] Basophils/100 WBC (Bld) 0.3 % [facility] Eosinophils (Bld) [#/Vol] 0.2 10*3/uL [facility] Eosinophils/100 WBC (Bld) 2.1 % [facility] Erythrocyte distribution width (RBC) [Ratio] 14.4 % 11.5 - 15.0 % [facility] Hematocrit (Bld) [Volume fraction] 51.0 % High 39 - 49 % [facility] Hemoglobin (Bld) [Mass/Vol] 17.9 g/dL High 13.0 - 17.0 g/dL [facility] Interpretation and review of laboratory results Abnormal [facility] Lymphocytes (Bld) [#/Vol] 1.0 10*3/uL [facility] Lymphocytes/100 WBC (Bld) 12.0 % [facility] MCH (RBC) [Entitic mass] 32.5 pg 27 - 34 pg [facility] MCHC (RBC) [Mass/Vol] 35.1 g/dL 32 - 36 g/dL [facility] MCV (RBC) [Entitic vol] 93 fL 80 - 100 fL [facility] Monocytes (Bld) [#/Vol] 0.9 10*3/uL [facility] Monocytes/100 WBC (Bld) 10.2 % [facility] Neutrophils (Bld) [#/Vol] 6.6 10*3/uL [facility] Neutrophils/100 WBC (Bld) 75.4 % [facility] Platelet mean volume (Bld) [Entitic vol] 8.6 fL 7 - 12 fL [facility] Platelets (Bld) [#/Vol] 138 10*3/uL Low [facility] RBC (Bld) [#/Vol] 5.51 10*6/uL [facility] WBC corrected for nucl RBC Auto (Bld) [#/Vol] 8.7 [facility] BASIC METABOLIC PANLon 12-29 Anion gap [Moles/Vol] 10 mmol/L Normal 5-15 [facility] Comment on above: Performed By: #### C BCA, BMP #### [facility] ([id number]) [address], [address] [place] [address] Calcium [Mass/Vol] 9.0 mg/dL Normal 8.5-10.5 [facility] Comment on above: Performed By: #### C BCA, BMP #### [facility] ([id number]) [address], [address] [place] [address] Chloride [Moles/Vol] 103 mmol/L Normal 98-109 [facility] Comment on above: Performed By: #### C BCA, BMP #### [facility] ([id number]) [address], [address] [place] [address] CO2 [Moles/Vol] 25 mmol/L Normal 22-32 [facility] Comment on above: Performed By: #### C BCA, BMP #### [facility] ([id number]) [address] [address] [address] Creatinine [Mass/Vol] 0.93 mg/dL Normal 0.60-1.30 [facility] Comment on above: Result Comment: METH OD TRACEABLE TO IDMS STANDARD Performed By: #### C BCA, BMP #### [facility] ([id number]) [address], [address] [place] [address] GFR/1.73 sq M.predicted among non-blacks MDRD (S/P/Bld) [Vol rate/Area] 87 mL/min/{1.73_m2} Normal >59 [facility] Comment on above: Result Comment: Reported eGFR is based on the CKD-EPI 2020 equation that does not use a race coefficient. Performed By: #### C BCA, BMP #### [facility] ([id number]) [address], [address] [place] [address] Glucose [Mass/Vol] 83 mg/dL Normal 65-99 [facility] Comment on above: Performed By: #### C BCA, BMP #### [facility] ([id number]) [address], [address] [place] [address] Potassium [Moles/Vol] 3.9 mmol/L Normal 3.5-5.0 [facility] Comment on above: Performed By: #### C BCA, BMP #### [facility] ([id number]) [address], [address] [place] [address] Sodium [Moles/Vol] 138 mmol/L Normal 134-146 [facility] Comment on above: Performed By: #### C BCA, BMP #### [facility] ([id number]) [address], [address] [place] [address] Urea nitrogen [Mass/Vol] 21 mg/dL Normal 5-27 [facility] Comment on above: Performed By: #### C BCA, BMP #### [facility] ([id number]) [address], [address] [place] [address] Basic Metabolic Panelon 10-0 Anion gap [Moles/Vol] 10 mmol/L 5 - 15 mmol/L [facility] Calcium [Mass/Vol] 9.0 mg/dL 8.5 - 10. 5 mg/dL [facility] Chloride [Moles/Vol] 103 mmol/L 98 - 109 mmol/L [facility] CO2 [Moles/Vol] 25 mmol/L 22 - 32 mmol/L [facility] Creatinine [Mass/Vol] 0.93 mg/dL 0.60 - 1.30 mg/dL [facility] Comment on above: METHOD TRACEABLE TO IDMS STANDARD eGFR (CKD-EPI)non-race dependent 87 - PINF [facility] Comment on above: Reported eGFR is based on the CKD-EPI 2020 equation that does not use a race coefficient. Glucose [Mass/Vol] 83 mg/dL 65 - 99 mg/dL [facility] Potassium [Moles/Vol] 3.9 mmol/L 3.5 - 5.0 mmol/L [facility] Sodium [Moles/Vol] 138 mmol/L 134 - 146 mmol/L [facility] Urea nitrogen [Mass/Vol] 21 mg/dL 5 - 27 mg/dL [facility] CBC AND AUTO DIFFon 12-30-19 ABSOLUTE BASOPHIL 0.1 X10E9/L Normal 0.0-0.2 [facility] Comment on above: Performed By: #### C ALEX, BMP #### [facility] ([id number]) [address], [address] [place] [address] ABSOLUTE NEUTROPHIL 5.3 X10E9/L Normal 1.5-6.6 [facility] Comment on above: Performed By: #### Sandi JOHNSON, BMP #### [facility] ([id number]) [address], [address] [place] [address] Basophils/100 WBC (Bld) 0.7 % Normal [facility] Comment on above: Performed By: #### Sandi JOHNSON, BMP #### [facility] ([id number]) [address], [address] [place] [address] Eosinophils (Bld) [#/Vol] 0.1 10*3/uL Normal 0.0-0.4 [facility] Comment on above: Performed By: #### Sandi JOHNSON, BMP #### [facility] ([id number]) [address], [address] [place] [address] Eosinophils/100 WBC (Bld) 1.5 % Normal [facility] Comment on above: Performed By: #### Sandi BCA, BMP #### [facility] ([id number]) [address], [address] [place] [address] Erythrocyte distribution width (RBC) [Ratio] 14.7 % Normal 11.5-15.0 [facility] Comment on above: Performed By: #### C BCA, BMP #### [facility] ([id number]) [address], [address] [place] [address] Hematocrit (Bld) [Volume fraction] 47.1 % Normal 39-49 [facility] Comment on above: Performed By: #### C BCA, BMP #### [facility] ([id number]) [address], [address] [place] [address] Hemoglobin (Bld) [Mass/Vol] 16.5 g/dL Normal 13.0-17.0 [facility] Comment on above: Performed By: #### C ALEX, BMP #### [facility] ([id number]) [address], [address] [place] [address] Lymphocytes (Bld) [#/Vol] 1.6 10*3/uL Normal 1.0-3.5 [facility] Comment on above: Performed By: #### C ALEX, BMP #### [facility] ([id number]) [address], [address] [place] [address] Lymphocytes/100 WBC (Bld) 19.8 % Normal [facility] Comment on above: Performed By: #### C BCA, BMP #### [facility] ([id number]) [address], [address] [place] [address] MCH (RBC) [Entitic mass] 32.3 pg Normal 27-34 [facility] Comment on above: Performed By: #### C BCA, BMP #### [facility] ([id number]) [address], [address] [place] [address] MCHC (RBC) [Mass/Vol] 35.0 g/dL Normal 32-36 [facility] Comment on above: Performed By: #### C BCA, BMP #### [facility] ([id number]) [address], [address] [place] [address] MCV (RBC) [Entitic vol] 92 fL Normal 80-100 [facility] Comment on above: Performed By: #### C BCA, BMP #### [facility] ([id number]) [address], [address] [place] [address] Monocytes (Bld) [#/Vol] 0.9 10*3/uL Normal 0-0.9 [facility] Comment on above: Performed By: #### C BCA, BMP #### [facility] ([id number]) [address], [address] [place] [address] Monocytes/100 WBC (Bld) 11.6 % Normal [facility] Comment on above: Performed By: #### C BCA, BMP #### [facility] ([id number]) [address], [address] [place] [address] Neutrophils/100 WBC (Bld) 66.4 % Normal [facility] Comment on above: Performed By: #### C BCA, BMP #### [facility] ([id number]) [address], [address] [place] [address] Platelet mean volume (Bld) [Entitic vol] 10.5 fL Normal 7-12 [facility] Comment on above: Performed By: #### C BCA, BMP #### [facility] ([id number]) [address], [address] [place] [address] Platelets (Bld) [#/Vol] 228 10*3/uL Normal 150-450 [facility] Comment on above: Performed By: #### C BCA, BMP #### [facility] ([id number]) [address], [address] [place] [address] RBC COUNT 5.10 X10E12/L Normal 4.10-5.70 [facility] Comment on above: Performed By: #### C BCA, BMP #### [facility] ([id number]) [address], [address] [place] [address] WBC (Bld) [#/Vol] 8.1 10*3/uL Normal 4.0-11.0 [facility] Comment on above: Performed By: #### C ROSA JOHNSON #### [facility] ([id number]) [address], [address] [place] [address] CBC auto differentialon 10-0 Basophils (Bld) [#/Vol] 0.1 10*3/uL [facility] Basophils/100 WBC (Bld) 0.7 % [facility] Eosinophils (Bld) [#/Vol] 0.1 10*3/uL [facility] Eosinophils/100 WBC (Bld) 1.5 % [facility] Erythrocyte distribution width (RBC) [Ratio] 14.7 % 11.5 - 15.0 % [facility] Hematocrit (Bld) [Volume fraction] 47.1 % 39 - 49 % [facility] Hemoglobin (Bld) [Mass/Vol] 16.5 g/dL 13.0 - 17.0 g/dL [facility] Lymphocytes (Bld) [#/Vol] 1.6 10*3/uL [facility] Lymphocytes/100 WBC (Bld) 19.8 % [facility] MCH (RBC) [Entitic mass] 32.3 pg 27 - 34 pg [facility] MCHC (RBC) [Mass/Vol] 35.0 g/dL 32 - 36 g/dL [facility] MCV (RBC) [Entitic vol] 92 fL 80 - 100 fL [facility] Monocytes (Bld) [#/Vol] 0.9 10*3/uL [facility] Monocytes/100 WBC (Bld) 11.6 % [facility] Neutrophils (Bld) [#/Vol] 5.3 10*3/uL [facility] Neutrophils/100 WBC (Bld) 66.4 % [facility] Platelet mean volume (Bld) [Entitic vol] 10.5 fL 7 - 12 fL [facility] Platelets (Bld) [#/Vol] 228 10*3/uL [facility] RBC (Bld) [#/Vol] 5.10 10*6/uL [facility] WBC corrected for nucl RBC Auto (Bld) [#/Vol] 8.1 [facility] BASIC METABOLIC PANLon 12-28 Anion gap [Moles/Vol] 11 mmol/L Normal 5-15 [facility] Comment on above: Performed By: #### C BCA, BMP #### [facility] ([id number]) [address], [address] [place] [address] Calcium [Mass/Vol] 9.0 mg/dL Normal 8.5-10.5 [facility] Comment on above: Performed By: #### C BCA, BMP #### [facility] ([id number]) [address], [address] [place] [address] Chloride [Moles/Vol] 106 mmol/L Normal 98-109 [facility] Comment on above: Performed By: #### C BCA, BMP #### [facility] ([id number]) [address], [address] [place] [address] CO2 [Moles/Vol] 22 mmol/L Normal 22-32 [facility] Comment on above: Performed By: #### C BCA, BMP #### [facility] ([id number]) [address], [address] [place] [address] Creatinine [Mass/Vol] 0.94 mg/dL Normal 0.60-1.30 [facility] Comment on above: Result Comment: METH OD TRACEABLE TO IDMS STANDARD Performed By: #### C BCA, BMP #### [facility] ([id number]) [address], [address] [place] [address] GFR/1.73 sq M.predicted among non-blacks MDRD (S/P/Bld) [Vol rate/Area] 86 mL/min/{1.73_m2} Normal >59 [facility] Comment on above: Result Comment: Reported eGFR is based on the CKD-EPI 2020 equation that does not use a race coefficient. Performed By: #### C BCA, BMP #### [facility] ([id number]) [address] [address] Glucose [Mass/Vol] 98 mg/dL Normal 65-99 [facility] Comment on above: Performed By: #### C BCA, BMP #### [facility] ([id number]) [address] [address] Potassium [Moles/Vol] 4.1 mmol/L Normal 3.5-5.0 [facility] Comment on above: Performed By: #### C BCA, BMP #### [facility] ([id number]) [address] [address] Sodium [Moles/Vol] 139 mmol/L Normal 134-146 [facility] Comment on above: Performed By: #### C BCA, BMP #### [facility] ([id number]) [address] [address] Urea nitrogen [Mass/Vol] 22 mg/dL Normal 5-27 [facility] Comment on above: Performed By: #### C BCA, BMP #### [facility] ([id number]) [address] [address] Basic Metabolic Panelon 10-0 Anion gap [Moles/Vol] 11 mmol/L 5 - 15 mmol/L [facility] Calcium [Mass/Vol] 9.0 mg/dL 8.5 - 10. 5 mg/dL [facility] Chloride [Moles/Vol] 106 mmol/L 98 - 109 mmol/L [facility] CO2 [Moles/Vol] 22 mmol/L 22 - 32 mmol/L [facility] Creatinine [Mass/Vol] 0.94 mg/dL 0.60 - 1.30 mg/dL [facility] Comment on above: METHOD TRACEABLE TO IDIN STANDARD eGFR (CKD-EPI)non-race dependent 86 - PINF [facility] Comment on above: Reported eGFR is based on the CKD-EPI 2020 equation that does not use a race coefficient. Glucose [Mass/Vol] 98 mg/dL 65 - 99 mg/dL [facility] Potassium [Moles/Vol] 4.1 mmol/L 3.5 - 5.0 mmol/L [facility] Sodium [Moles/Vol] 139 mmol/L 134 - 146 mmol/L [facility] Urea nitrogen [Mass/Vol] 22 mg/dL 5 - 27 mg/dL [facility] CBC AND AUTO DIFFon 12-29-19 ABSOLUTE BASOPHIL 0.0 X10E9/L Normal 0.0-0.2 [facility] Comment on above: Performed By: #### Sandi JOHNSON, BMP #### [facility] ([id number]) [address] [address] [place] [address] ABSOLUTE NEUTROPHIL 10.7 X10E9/L High 1.5-6.6 [facility] Comment on above: Performed By: #### Sandi JOHNSON, BMP #### [facility] ([id number]) [address] [address] Basophils/100 WBC (Bld) 0.2 % Normal [facility] Comment on above: Performed By: #### Sandi JOHNSON, BMP #### [facility] ([id number]) [address] [address] [place] [address] Eosinophils (Bld) [#/Vol] 0.0 10*3/uL Normal 0.0-0.4 [facility] Comment on above: Performed By: #### C ALEX, BMP #### [facility] ([id number]) [address] [address] Eosinophils/100 WBC (Bld) 0.1 % Normal [facility] Comment on above: Performed By: #### Sandi BCA, BMP #### [facility] ([id number]) [address], [address] [place] [address] Erythrocyte distribution width (RBC) [Ratio] 14.5 % Normal 11.5-15.0 [facility] Comment on above: Performed By: #### C ALEX, BMP #### [facility] ([id number]) [address], [address] [place] [address] Hematocrit (Bld) [Volume fraction] 46.7 % Normal 39-49 [facility] Comment on above: Performed By: #### C ALEX, BMP #### [facility] ([id number]) [address], [address] [place] [address] Hemoglobin (Bld) [Mass/Vol] 16.6 g/dL Normal 13.0-17.0 [facility] Comment on above: Performed By: #### C ALEX, BMP #### [facility] ([id number]) [address], [address] [place] [address] Lymphocytes (Bld) [#/Vol] 1.0 10*3/uL Normal 1.0-3.5 [facility] Comment on above: Performed By: #### C ALEX, BMP #### [facility] ([id number]) [address], [address] [place] [address] Lymphocytes/100 WBC (Bld) 7.9 % Normal [facility] Comment on above: Performed By: #### C ALEX, BMP #### [facility] ([id number]) [address], [address] [place] [address] MCH (RBC) [Entitic mass] 32.7 pg Normal 27-34 [facility] Comment on above: Performed By: #### C ALEX, BMP #### [facility] ([id number]) [address], [address] [place] [address] MCHC (RBC) [Mass/Vol] 35.5 g/dL Normal 32-36 [facility] Comment on above: Performed By: #### C ALEX, BMP #### [facility] ([id number]) [address], [address] [place] [address] MCV (RBC) [Entitic vol] 92 fL Normal 80-100 [facility] Comment on above: Performed By: #### C ALEX, BMP #### [facility] ([id number]) [address], [address] [place] [address] Monocytes (Bld) [#/Vol] 1.1 10*3/uL High 0-0.9 [facility] Comment on above: Performed By: #### C ALEX, BMP #### [facility] ([id number]) [address], [address] [place] [address] Monocytes/100 WBC (Bld) 8.6 % Normal [facility] Comment on above: Performed By: #### C ALEX, BMP #### [facility] ([id number]) [address], [address] [place] [address] Neutrophils/100 WBC (Bld) 83.2 % Normal [facility] Comment on above: Performed By: #### C ALEX, BMP #### [facility] ([id number]) [address], [address] [place] [address] Platelet mean volume (Bld) [Entitic vol] 8.1 fL Normal 7-12 [facility] Comment on above: Performed By: #### C ALEX, BMP #### [facility] ([id number]) [address], [address] [place] [address] Platelets (Bld) [#/Vol] 160 10*3/uL Normal 150-450 [facility] Comment on above: Performed By: #### C BCA, BMP #### [facility] ([id number]) [address], [address] [place] [address] RBC COUNT 5.07 X10E12/L Normal 4.10-5.70 [facility] Comment on above: Performed By: #### Sandi JOHNSON, ROSA #### [facility] ([id number]) [address], [address] [place] [address] WBC (Bld) [#/Vol] 12.8 10*3/uL High 4.0-11.0 [facility] Comment on above: Performed By: #### Sandi JOHNSON, BMP #### [facility] ([id number]) [address], [address] [place] [address] CBC auto differentialon Basophils (Bld) [#/Vol] 0.0 10*3/uL [facility] Basophils/100 WBC (Bld) 0.2 % [facility] Eosinophils (Bld) [#/Vol] 0.0 10*3/uL [facility] Eosinophils/100 WBC (Bld) 0.1 % [facility] Erythrocyte distribution width (RBC) [Ratio] 14.5 % 11.5 - 15.0 % [facility] Hematocrit (Bld) [Volume fraction] 46.7 % 39 - 49 % [facility] Hemoglobin (Bld) [Mass/Vol] 16.6 g/dL 13.0 - 17.0 g/dL [facility] Interpretation and review of laboratory results Abnormal [facility] Lymphocytes (Bld) [#/Vol] 1.0 10*3/uL [facility] Lymphocytes/100 WBC (Bld) 7.9 % [facility] MCH (RBC) [Entitic mass] 32.7 pg 27 - 34 pg [facility] MCHC (RBC) [Mass/Vol] 35.5 g/dL 32 - 36 g/dL [facility] MCV (RBC) [Entitic vol] 92 fL 80 - 100 fL [facility] Monocytes (Bld) [#/Vol] 1.1 10*3/uL High [facility] Monocytes/100 WBC (Bld) 8.6 % [facility] Neutrophils (Bld) [#/Vol] 10.7 10*3/uL High [facility] Neutrophils/100 WBC (Bld) 83.2 % [facility] Platelet mean volume (Bld) [Entitic vol] 8.1 fL 7 - 12 fL [facility] Platelets (Bld) [#/Vol] 160 10*3/uL [facility] RBC (Bld) [#/Vol] 5.07 10*6/uL [facility] WBC corrected for nucl RBC Auto (Bld) [#/Vol] 12.8 High [facility] BASIC METABOLIC PANLon 12-27 Anion gap [Moles/Vol] 12 mmol/L Normal 5-15 [facility] Comment on above: Performed By: #### C ALEX, BMP #### [facility] ([id number]) [address], [address] [place] [address] Calcium [Mass/Vol] 9.2 mg/dL Normal 8.5-10.5 [facility] Comment on above: Performed By: #### C BCA, BMP #### [facility] ([id number]) [address], [address] [place] [address] Chloride [Moles/Vol] 103 mmol/L Normal 98-109 [facility] Comment on above: Performed By: #### C BCA, BMP #### [facility] ([id number]) [address], [address] [place] [address] CO2 [Moles/Vol] 21 mmol/L Low 22-32 [facility] Comment on above: Performed By: #### C BCA, BMP #### [facility] ([id number]) [address], [address] [place] [address] Creatinine [Mass/Vol] 0.90 mg/dL Normal 0.60-1.30 [facility] Comment on above: Result Comment: METH OD TRACEABLE TO IDMS STANDARD Performed By: #### C BCA, BMP #### [facility] ([id number]) [address] [address] eGFR (CKD-EPI) NON-RACE DEPENDENT >90 Normal >59 [facility] Comment on above: Result Comment: Reported eGFR is based on the CKD-EPI 2020 equation that does not use a race coefficient. Performed By: #### Sandi JOHNSON, BMP #### [facility] ([id number]) [address] [address] Glucose [Mass/Vol] 127 mg/dL High 65-99 [facility] Comment on above: Performed By: #### C ALEX, BMP #### [facility] ([id number]) [address] [address] Potassium [Moles/Vol] 4.1 mmol/L Normal 3.5-5.0 [facility] Comment on above: Performed By: #### Sandi JOHNSON, BMP #### [facility] ([id number]) [address] [address] Sodium [Moles/Vol] 136 mmol/L Normal 134-146 [facility] Comment on above: Performed By: #### C ALEX, BMP #### [facility] ([id number]) [address] [address] Urea nitrogen [Mass/Vol] 16 mg/dL Normal 5-27 [facility] Comment on above: Performed By: #### Sandi BCA, BMP #### [facility] ([id number]) [address] [address] Basic Metabolic Panelon 10-0 Anion gap [Moles/Vol] 12 mmol/L 5 - 15 mmol/L [facility] Calcium [Mass/Vol] 9.2 mg/dL 8.5 - 10. 5 mg/dL [facility] Chloride [Moles/Vol] 103 mmol/L 98 - 109 mmol/L [facility] CO2 [Moles/Vol] 21 mmol/L Low 22 - 32 mmol/L [facility] Creatinine [Mass/Vol] 0.90 mg/dL 0.60 - 1.30 mg/dL [facility] Comment on above: METHOD TRACEABLE TO IDIN STANDARD eGFR (CKD-EPI)non-race dependent - PINF [facility] Comment on above: Reported eGFR is based on the CKD-EPI 2020 equation that does not use a race coefficient. Glucose [Mass/Vol] 127 mg/dL High 65 - 99 mg/dL [facility] Interpretation and review of laboratory results Abnormal [facility] Potassium [Moles/Vol] 4.1 mmol/L 3.5 - 5.0 mmol/L [facility] Sodium [Moles/Vol] 136 mmol/L 134 - 146 mmol/L [facility] Urea nitrogen [Mass/Vol] 16 mg/dL 5 - 27 mg/dL [facility] CBC AND AUTO DIFFon 12-28-19 ABSOLUTE BASOPHIL 0.0 X10E9/L Normal 0.0-0.2 [facility] Comment on above: Performed By: #### C ALEX, BMP #### [facility] ([id number]) [address], [address] [place] [address] ABSOLUTE NEUTROPHIL 7.0 X10E9/L High 1.5-6.6 [facility] Comment on above: Performed By: #### C BCA, BMP #### [facility] ([id number]) [address], [address] [place] [address] Basophils/100 WBC (Bld) 0.2 % Normal [facility] Comment on above: Performed By: #### C BCA, BMP #### [facility] ([id number]) [address], [address] [place] [address] Eosinophils (Bld) [#/Vol] 0.0 10*3/uL Normal 0.0-0.4 [facility] Comment on above: Performed By: #### C BCA, BMP #### [facility] ([id number]) [address] [place] [address] Eosinophils/100 WBC (Bld) 0.1 % Normal [facility] Comment on above: Performed By: #### C ALEX, BMP #### [facility] ([id number]) [address], [address] [place] [address] Erythrocyte distribution width (RBC) [Ratio] 14.5 % Normal 11.5-15.0 [facility] Comment on above: Performed By: #### C ALEX, BMP #### [facility] ([id number]) [address] [place] [address] Hematocrit (Bld) [Volume fraction] 49.6 % High 39-49 [facility] Comment on above: Performed By: #### C ALEX, BMP #### [facility] ([id number]) [address] [place] [address] Hemoglobin (Bld) [Mass/Vol] 17.7 g/dL High 13.0-17.0 [facility] Comment on above: Performed By: #### C ALEX, BMP #### [facility] ([id number]) [address] [place] [address] Lymphocytes (Bld) [#/Vol] 0.5 10*3/uL Low 1.0-3.5 [facility] Comment on above: Performed By: #### Sandi JOHNSON, BMP #### [facility] ([id number]) [address], [address] [place] [address] Lymphocytes/100 WBC (Bld) 6.4 % Normal [facility] Comment on above: Performed By: #### C ALEX, BMP #### [facility] ([id number]) [address], [address] [place] [address] MCH (RBC) [Entitic mass] 32.7 pg Normal 27-34 [facility] Comment on above: Performed By: #### C ALEX, BMP #### [facility] ([id number]) [address], [address] [place] [address] MCHC (RBC) [Mass/Vol] 35.8 g/dL Normal 32-36 [facility] Comment on above: Performed By: #### C ALEX, BMP #### [facility] ([id number]) [address], [address] [place] [address] MCV (RBC) [Entitic vol] 92 fL Normal 80-100 [facility] Comment on above: Performed By: #### C ALEX, BMP #### [facility] ([id number]) [address], [address] [place] [address] Monocytes (Bld) [#/Vol] 0.1 10*3/uL Normal 0-0.9 [facility] Comment on above: Performed By: #### Sandi JOHNSON, BMP #### [facility] ([id number]) [address], [address] [place] [address] Monocytes/100 WBC (Bld) 1.4 % Normal [facility] Comment on above: Performed By: #### C ALEX, BMP #### [facility] ([id number]) [address], [address] [place] [address] Neutrophils/100 WBC (Bld) 91.9 % Normal [facility] Comment on above: Performed By: #### Sandi JOHNSON, BMP #### [facility] ([id number]) [address], [address] [place] [address] Platelet mean volume (Bld) [Entitic vol] 8.1 fL Normal 7-12 [facility] Comment on above: Performed By: #### C ALEX, BMP #### [facility] ([id number]) [address], [address] [place] [address] Platelets (Bld) [#/Vol] 172 10*3/uL Normal 150-450 [facility] Comment on above: Performed By: #### C ALEX, BMP #### [facility] ([id number]) [address], [address] [place] [address] RBC COUNT 5.42 X10E12/L Normal 4.10-5.70 [facility] Comment on above: Performed By: #### Sandi JOHNSON, BMP #### [facility] ([id number]) [address], [address] [place] [address] WBC (Bld) [#/Vol] 7.6 10*3/uL Normal 4.0-11.0 [facility] Comment on above: Performed By: #### Sandi JOHNSON, BMP #### [facility] ([id number]) [address], [address] [place] [address] CBC auto differentialon 10-0 Basophils (Bld) [#/Vol] 0.0 10*3/uL [facility] Basophils/100 WBC (Bld) 0.2 % [facility] Eosinophils (Bld) [#/Vol] 0.0 10*3/uL [facility] Eosinophils/100 WBC (Bld) 0.1 % [facility] Erythrocyte distribution width (RBC) [Ratio] 14.5 % 11.5 - 15.0 % [facility] Hematocrit (Bld) [Volume fraction] 49.6 % High 39 - 49 % [facility] Hemoglobin (Bld) [Mass/Vol] 17.7 g/dL High 13.0 - 17.0 g/dL [facility] Interpretation and review of laboratory results Abnormal [facility] Lymphocytes (Bld) [#/Vol] 0.5 10*3/uL Low [facility] Lymphocytes/100 WBC (Bld) 6.4 % [facility] MCH (RBC) [Entitic mass] 32.7 pg 27 - 34 pg [facility] MCHC (RBC) [Mass/Vol] 35.8 g/dL 32 - 36 g/dL [facility] MCV (RBC) [Entitic vol] 92 fL 80 - 100 fL [facility] Monocytes (Bld) [#/Vol] 0.1 10*3/uL [facility] Monocytes/100 WBC (Bld) 1.4 % [facility] Neutrophils (Bld) [#/Vol] 7.0 10*3/uL High [facility] Neutrophils/100 WBC (Bld) 91.9 % [facility] Platelet mean volume (Bld) [Entitic vol] 8.1 fL 7 - 12 fL [facility] Platelets (Bld) [#/Vol] 172 10*3/uL [facility] RBC (Bld) [#/Vol] 5.42 10*6/uL [facility] WBC corrected for nucl RBC Auto (Bld) [#/Vol] 7.6 [facility] BASIC METABOLIC PANLon 12-26 Anion gap [Moles/Vol] 9 mmol/L Normal 5-15 [facility] Comment on above: Performed By: #### C BCA, BMP #### [facility] ([id number]) [address], [address] [place] [address] Calcium [Mass/Vol] 9.0 mg/dL Normal 8.5-10.5 [facility] Comment on above: Performed By: #### C BCA, BMP #### [facility] ([id number]) [address], [address] [place] [address] Chloride [Moles/Vol] 103 mmol/L Normal 98-109 [facility] Comment on above: Performed By: #### C BCA, BMP #### [facility] ([id number]) [address], [address] [place] [address] CO2 [Moles/Vol] 27 mmol/L Normal 22-32 [facility] Comment on above: Performed By: #### C BCA, BMP #### [facility] ([id number]) [address], [address] [place] [address] Creatinine [Mass/Vol] 0.88 mg/dL Normal 0.60-1.30 [facility] Comment on above: Result Comment: METH OD TRACEABLE TO IDMS STANDARD Performed By: #### C BCA, BMP #### [facility] ([id number]) [address], [address] [place] [address] eGFR (CKD-EPI) NON-RACE DEPENDENT >90 Normal >59 [facility] Comment on above: Result Comment: Reported eGFR is based on the CKD-EPI 2020 equation that does not use a race coefficient. Performed By: #### C BCA, BMP #### [facility] ([id number]) [address], [address] [place] [address] Glucose [Mass/Vol] 81 mg/dL Normal 65-99 [facility] Comment on above: Performed By: #### C BCA, BMP #### [facility] ([id number]) [address], [address] [place] [address] Potassium [Moles/Vol] 3.9 mmol/L Normal 3.5-5.0 [facility] Comment on above: Performed By: #### C BCA, BMP #### [facility] ([id number]) [address], [address] [place] [address] Sodium [Moles/Vol] 139 mmol/L Normal 134-146 [facility] Comment on above: Performed By: #### C BCA, BMP #### [facility] ([id number]) [address], [address] [place] [address] Urea nitrogen [Mass/Vol] 14 mg/dL Normal 5-27 [facility] Comment on above: Performed By: #### C BCA, BMP #### [facility] ([id number]) [address], [address] [place] [address] Basic Metabolic Panelon 10-0 Anion gap [Moles/Vol] 9 mmol/L 5 - 15 mmol/L [facility] Calcium [Mass/Vol] 9.0 mg/dL 8.5 - 10. 5 mg/dL [facility] Chloride [Moles/Vol] 103 mmol/L 98 - 109 mmol/L [facility] CO2 [Moles/Vol] 27 mmol/L 22 - 32 mmol/L [facility] Creatinine [Mass/Vol] 0.88 mg/dL 0.60 - 1.30 mg/dL [facility] Comment on above: METHOD TRACEABLE TO IDIN STANDARD eGFR (CKD-EPI)non-race dependent - PINF [facility] Comment on above: Reported eGFR is based on the CKD-EPI 2020 equation that does not use a race coefficient. Glucose [Mass/Vol] 81 mg/dL 65 - 99 mg/dL [facility] Potassium [Moles/Vol] 3.9 mmol/L 3.5 - 5.0 mmol/L [facility] Sodium [Moles/Vol] 139 mmol/L 134 - 146 mmol/L [facility] Urea nitrogen [Mass/Vol] 14 mg/dL 5 - 27 mg/dL [facility] CBC AND AUTO DIFFon 12-27-19 ABSOLUTE BASOPHIL 0.1 X10E9/L Normal 0.0-0.2 [facility] Comment on above: Performed By: #### C BCA, BMP #### [facility] ([id number]) [address] [place] [address], [address] [place] [address] ABSOLUTE NEUTROPHIL 6.1 X10E9/L Normal 1.5-6.6 [facility] Comment on above: Performed By: #### C BCA, BMP #### [facility] ([id number]) [address] [place] [address], [address] [place] [address] Basophils/100 WBC (Bld) 0.9 % Normal [facility] Comment on above: Performed By: #### C BCA, BMP #### [facility] ([id number]) [address] [place] [address], [address] [place] [address] Eosinophils (Bld) [#/Vol] 0.3 10*3/uL Normal 0.0-0.4 [facility] Comment on above: Performed By: #### C BCA, BMP #### [facility] ([id number]) [address], [address] [place] [address] Eosinophils/100 WBC (Bld) 3.1 % Normal [facility] Comment on above: Performed By: #### C BCA, BMP #### [facility] ([id number]) [address], [address] [place] [address] Erythrocyte distribution width (RBC) [Ratio] 14.6 % Normal 11.5-15.0 [facility] Comment on above: Performed By: #### C ALEX, BMP #### [facility] ([id number]) [address], [address] [place] [address] Hematocrit (Bld) [Volume fraction] 50.3 % High 39-49 [facility] Comment on above: Performed By: #### C ALEX, BMP #### [facility] ([id number]) [address], [address] [place] [address] Hemoglobin (Bld) [Mass/Vol] 17.6 g/dL High 13.0-17.0 [facility] Comment on above: Performed By: #### C ALEX, BMP #### [facility] ([id number]) [address], [address] [place] [address] Lymphocytes (Bld) [#/Vol] 1.2 10*3/uL Normal 1.0-3.5 [facility] Comment on above: Performed By: #### C BCA, BMP #### [facility] ([id number]) [address], [address] [place] [address] Lymphocytes/100 WBC (Bld) 13.9 % Normal [facility] Comment on above: Performed By: #### C BCA, BMP #### [facility] ([id number]) [address], [address] [place] [address] MCH (RBC) [Entitic mass] 32.5 pg Normal 27-34 [facility] Comment on above: Performed By: #### C BCA, BMP #### [facility] ([id number]) [address], [address] [place] [address] MCHC (RBC) [Mass/Vol] 35.1 g/dL Normal 32-36 [facility] Comment on above: Performed By: #### C BCA, BMP #### [facility] ([id number]) [address], [address] [place] [address] MCV (RBC) [Entitic vol] 93 fL Normal 80-100 [facility] Comment on above: Performed By: #### C ALEX, BMP #### [facility] ([id number]) [address], [address] [place] [address] Monocytes (Bld) [#/Vol] 0.8 10*3/uL Normal 0-0.9 [facility] Comment on above: Performed By: #### C ALEX, BMP #### [facility] ([id number]) [address], [address] [place] [address] Monocytes/100 WBC (Bld) 9.6 % Normal [facility] Comment on above: Performed By: #### C ALEX, BMP #### [facility] ([id number]) [address], [address] [place] [address] Neutrophils/100 WBC (Bld) 72.5 % Normal [facility] Comment on above: Performed By: #### C BCA, BMP #### [facility] ([id number]) [address], [address] [place] [address] Platelet mean volume (Bld) [Entitic vol] 8.1 fL Normal 7-12 [facility] Comment on above: Performed By: #### C BCA, BMP #### [facility] ([id number]) [address], [address] [place] [address] Platelets (Bld) [#/Vol] 164 10*3/uL Normal 150-450 [facility] Comment on above: Performed By: #### Sandi JOHNSON, BMP #### [facility] ([id number]) [address], [address] [place] [address] RBC COUNT 5.43 X10E12/L Normal 4.10-5.70 [facility] Comment on above: Performed By: #### Sandi JOHNSON, BMP #### [facility] ([id number]) [address], [address] [place] [address] WBC (Bld) [#/Vol] 8.5 10*3/uL Normal 4.0-11.0 [facility] Comment on above: Performed By: #### Sandi JOHNSON, BMP #### [facility] ([id number]) [address], [address] [place] [address] CBC auto differentialon 10-0 -2023 Basophils (Bld) [#/Vol] 0.1 10*3/uL [facility] Basophils/100 WBC (Bld) 0.9 % [facility] Eosinophils (Bld) [#/Vol] 0.3 10*3/uL [facility] Eosinophils/100 WBC (Bld) 3.1 % [facility] Erythrocyte distribution width (RBC) [Ratio] 14.6 % 11.5 - 15.0 % [facility] Hematocrit (Bld) [Volume fraction] 50.3 % High 39 - 49 % [facility] Hemoglobin (Bld) [Mass/Vol] 17.6 g/dL High 13.0 - 17.0 g/dL [facility] Interpretation and review of laboratory results Abnormal [facility] Lymphocytes (Bld) [#/Vol] 1.2 10*3/uL [facility] Lymphocytes/100 WBC (Bld) 13.9 % [facility] MCH (RBC) [Entitic mass] 32.5 pg 27 - 34 pg [facility] MCHC (RBC) [Mass/Vol] 35.1 g/dL 32 - 36 g/dL [facility] MCV (RBC) [Entitic vol] 93 fL 80 - 100 fL [facility] Monocytes (Bld) [#/Vol] 0.8 10*3/uL [facility] Monocytes/100 WBC (Bld) 9.6 % [facility] Neutrophils (Bld) [#/Vol] 6.1 10*3/uL [facility] Neutrophils/100 WBC (Bld) 72.5 % [facility] Platelet mean volume (Bld) [Entitic vol] 8.1 fL 7 - 12 fL [facility] Platelets (Bld) [#/Vol] 164 10*3/uL [facility] RBC (Bld) [#/Vol] 5.43 10*6/uL [facility] WBC corrected for nucl RBC Auto (Bld) [#/Vol] 8.5 [facility] 2[facility] BASIC METABOLIC PANLon 12-25 Anion gap [Moles/Vol] 13 mmol/L Normal 5-15 [facility] Comment on above: Performed By: #### C BCA, BMP #### [facility] ([id number]) [address], [address] [place] [address] Calcium [Mass/Vol] 9.6 mg/dL Normal 8.5-10.5 [facility] Comment on above: Performed By: #### C BCA, BMP #### [facility] ([id number]) [address], [address] [place] [address] Chloride [Moles/Vol] 99 mmol/L Normal 98-109 [facility] Comment on above: Performed By: #### C BCA, BMP #### [facility] ([id number]) [address], [address] [place] [address] CO2 [Moles/Vol] 26 mmol/L Normal 22-32 [facility] Comment on above: Performed By: #### C BCA, BMP #### [facility] ([id number]) [address], [address] [place] [address] Creatinine [Mass/Vol] 0.91 mg/dL Normal 0.60-1.30 [facility] Comment on above: Result Comment: METH OD TRACEABLE TO IDMS STANDARD Performed By: #### C ALEX, BMP #### [facility] ([id number]) [address], [facility] [address] [place] [address] GFR/1.73 sq M.predicted among non-blacks MDRD (S/P/Bld) [Vol rate/Area] 90 mL/min/{1.73_m2} Normal >59 [facility] Comment on above: Result Comment: Reported eGFR is based on the CKD-EPI 2020 equation that does not use a race coefficient. Performed By: #### C ALEX, BMP #### [facility] ([id number]) [address], [address] [place] [address] Glucose [Mass/Vol] 88 mg/dL Normal 65-99 [facility] Comment on above: Performed By: #### C ALEX, BMP #### [facility] ([id number]) [address] [address] Potassium [Moles/Vol] 4.2 mmol/L Normal 3.5-5.0 [facility] Comment on above: Result Comment: SPEC IMEN HEMOLYZED, RESULTS INCREASED MODERATELY HEMOLYZED Performed By: #### C ALEX, BMP #### [facility] ([id number]) [address], [facility] [address] [place] [address] Sodium [Moles/Vol] 138 mmol/L Normal 134-146 [facility] Comment on above: Performed By: #### C BCA, BMP #### [facility] ([id number]) [address] [address] [place] [address] Urea nitrogen [Mass/Vol] 13 mg/dL Normal 5-27 [facility] Comment on above: Performed By: #### C BCA, BMP #### [facility] ([id number]) [address] [facility] [place] [address] BLOOD CULTUREon 12-26-2023 Bacteria identified Aer cx Nom (Bld) CULTURE RESULTS NO GROWTH 5 DAYS Normal [facility] Basic Metabolic Panelon 10 Anion gap [Moles/Vol] 13 mmol/L 5 - 15 mmol/L [facility] Calcium [Mass/Vol] 9.6 mg/dL 8.5 - 10. 5 mg/dL [facility] Chloride [Moles/Vol] 99 mmol/L 98 - 109 mmol/L [facility] CO2 [Moles/Vol] 26 mmol/L 22 - 32 mmol/L [facility] Creatinine [Mass/Vol] 0.91 mg/dL 0.60 - 1.30 mg/dL [facility] Comment on above: METHOD TRACEABLE TO IDIN STANDARD eGFR (CKD-EPI)non-race dependent 90 - PINF [facility] Comment on above: Reported eGFR is based on the CKD-EPI 2020 equation that does not use a race coefficient. Glucose [Mass/Vol] 88 mg/dL 65 - 99 mg/dL [facility] Potassium [Moles/Vol] 4.2 mmol/L 3.5 - 5.0 mmol/L [facility] Comment on above: SPECIMEN HEMOLYZED, RESULTS INCREASED MODERATELY HEMOLYZED Sodium [Moles/Vol] 138 mmol/L 134 - 146 mmol/L [facility] Urea nitrogen [Mass/Vol] 13 mg/dL 5 - 27 mg/dL [facility] CBC AND AUTO DIFFon 12-26-19 ABSOLUTE BASOPHIL 0.1 X10E9/L Normal 0.0-0.2 [facility] Comment on above: Performed By: #### C BCA, BMP #### [facility] ([id number]) [address] [facility] [place] [address] ABSOLUTE NEUTROPHIL 6.8 X10E9/L High 1.5-6.6 [facility] Comment on above: Performed By: #### C BCA, BMP #### [facility] ([id number]) [address] [facility] [place] [address] Basophils/100 WBC (Bld) 0.6 % Normal [facility] Comment on above: Performed By: #### C ALEX, BMP #### [facility] ([id number]) [address], [address] [place] [address] Eosinophils (Bld) [#/Vol] 0.2 10*3/uL Normal 0.0-0.4 [facility] Comment on above: Performed By: #### C ALEX, BMP #### [facility] ([id number]) [address], [address] [place] [address] Eosinophils/100 WBC (Bld) 2.3 % Normal [facility] Comment on above: Performed By: #### C ALEX, BMP #### [facility] ([id number]) [address], [address] [place] [address] Erythrocyte distribution width (RBC) [Ratio] 14.8 % Normal 11.5-15.0 [facility] Comment on above: Performed By: #### C ALEX, BMP #### [facility] ([id number]) [address], [facility] [address] [place] [address] Hematocrit (Bld) [Volume fraction] 55.4 % High 39-49 [facility] Comment on above: Performed By: #### C ALEX, BMP #### [facility] ([id number]) [address] [address] [place] [address] Hemoglobin (Bld) [Mass/Vol] 19.3 g/dL High 13.0-17.0 [facility] Comment on above: Performed By: #### C ALEX, BMP #### [facility] ([id number]) [address] [address] [place] [address] Lymphocytes (Bld) [#/Vol] 1.1 10*3/uL Normal 1.0-3.5 [facility] Comment on above: Performed By: #### C BCA, BMP #### [facility] ([id number]) [address], [address] [place] [address] Lymphocytes/100 WBC (Bld) 12.1 % Normal [facility] Comment on above: Performed By: #### C BCA, BMP #### [facility] ([id number]) [address], [address] [place] [address] MCH (RBC) [Entitic mass] 31.9 pg Normal 27-34 [facility] Comment on above: Performed By: #### C ALEX, BMP #### [facility] ([id number]) [address], [address] [place] [address] MCHC (RBC) [Mass/Vol] 34.9 g/dL Normal 32-36 [facility] Comment on above: Performed By: #### C ALEX, BMP #### [facility] ([id number]) [address], [address] [place] [address] MCV (RBC) [Entitic vol] 92 fL Normal 80-100 [facility] Comment on above: Performed By: #### C ALEX, BMP #### [facility] ([id number]) [address], [address] [place] [address] Monocytes (Bld) [#/Vol] 0.9 10*3/uL Normal 0-0.9 [facility] Comment on above: Performed By: #### C BCA, BMP #### [facility] ([id number]) [address], [address] [place] [address] Monocytes/100 WBC (Bld) 10.0 % Normal [facility] Comment on above: Performed By: #### C BCA, BMP #### [facility] ([id number]) [address], [address] [place] [address] Neutrophils/100 WBC (Bld) 75.0 % Normal [facility] Comment on above: Performed By: #### C ALEX, BMP #### [facility] ([id number]) [address] [address] Platelet mean volume (Bld) [Entitic vol] 8.1 fL Normal 7-12 [facility] Comment on above: Performed By: #### Sandi JOHNSON, BMP #### [facility] ([id number]) [address] [address] Platelets (Bld) [#/Vol] 180 10*3/uL Normal 150-450 [facility] Comment on above: Performed By: #### Sandi JOHNSON, BMP #### [facility] ([id number]) [address] [address] RBC COUNT 6.05 X10E12/L High 4.10-5.70 [facility] Comment on above: Performed By: #### Sandi JOHNSON, BMP #### [facility] ([id number]) [address] [address] WBC (Bld) [#/Vol] 9.1 10*3/uL Normal 4.0-11.0 [facility] Comment on above: Performed By: #### Sandi JOHNSON, BMP #### [facility] ([id number]) [address] [address] CBC auto differentialon 10-0 -2023 Basophils (Bld) [#/Vol] 0.1 10*3/uL [facility] Basophils/100 WBC (Bld) 0.6 % [facility] Eosinophils (Bld) [#/Vol] 0.2 10*3/uL [facility] Eosinophils/100 WBC (Bld) 2.3 % [facility] Erythrocyte distribution width (RBC) [Ratio] 14.8 % 11.5 - 15.0 % [facility] Hematocrit (Bld) [Volume fraction] 55.4 % High 39 - 49 % [facility] Hemoglobin (Bld) [Mass/Vol] 19.3 g/dL High 13.0 - 17.0 g/dL [facility] Interpretation and review of laboratory results Abnormal [facility] Lymphocytes (Bld) [#/Vol] 1.1 10*3/uL [facility] Lymphocytes/100 WBC (Bld) 12.1 % [facility] MCH (RBC) [Entitic mass] 31.9 pg 27 - 34 pg [facility] MCHC (RBC) [Mass/Vol] 34.9 g/dL 32 - 36 g/dL [facility] MCV (RBC) [Entitic vol] 92 fL 80 - 100 fL [facility] Monocytes (Bld) [#/Vol] 0.9 10*3/uL [facility] Monocytes/100 WBC (Bld) 10.0 % [facility] Neutrophils (Bld) [#/Vol] 6.8 10*3/uL High [facility] Neutrophils/100 WBC (Bld) 75.0 % [facility] Platelet mean volume (Bld) [Entitic vol] 8.1 fL 7 - 12 fL [facility] Platelets (Bld) [#/Vol] 180 10*3/uL [facility] RBC (Bld) [#/Vol] 6.05 10*6/uL High [facility] WBC corrected for nucl RBC Auto (Bld) [#/Vol] 9.1 [facility] [address] NECK SOFT TISSUE W CONTon 12-26-2023 CT NECK SOFT TISSUE W CONT CT NECK SOFT TISSUE W CONT EXAM: CT NECK WITH CONTRAST CLINICAL INFORMATION: Soft tissue infection suspected, neck, xray done. TECHNIQUE: CT neck was performed utilizing 5 mm axial reconstructions following the uneventful administration of nonionic intravenous contrast. Coronal and sagittal reformatted images were obtained and reviewed. Automated exposure control was utilized. COMPARISON: None. FINDINGS: The mucosal and submucosal spaces are grossly symmetric and unremarkable. There are calcified tonsilloliths. There is no evidence for a mass in the neck. There are scattered non-enlarged lymph nodes on both sides of the neck. The thyroid gland is unremarkable. The parotid and submandibular glands are symmetric and unremarkable. The carotid arteries and jugular veins are unremarkable. The limited visualized lung apices are unremarkable. There is polypoid mucosal thickening in the left maxillary sinus with areas of high attenuation compatible with fungal infection or inspissated secretions. There is fluid within the right mastoid air cells and middle ear; clinical correlation for acute right-sided otitis media is recommended. The left mastoid air cells are clear and well aerated. IMPRESSION: 1. No acute abnormalities in the neck. 2. Fluid within the right mastoids and filling the middle ears; clinical correlation for acute right-sided otitis media is recommended. 3. Mucosal thickening in the left maxillary sinus with areas of high attenuation compatible with inspissated secretions and/or fungal infection. All CT scans at this facility use dose modulation, iterative reconstruction, and/or weight based dosing when appropriate to reduce radiation dose to as low as reasonably achievable. Finalized by Cyrus Singh MD on 12/26/2023 4:48 PM Normal [facility] [facility] Neck W contrast Starr 10-0 EXAM: CT NECK WITH C ONTRAST CLINICAL INFORMATION: Soft tissue infection suspected, neck, xray done. TECHNIQUE: CT neck was performed utilizing 5 mm axial reconstructions following the uneventful administration of nonionic intravenous contrast. Coronal and sagittal reformatted images were obtained and reviewed. Automated exposure control was utilized. COMPARISON: None. FINDINGS: The mucosal and submucosal spaces are grossly symmetric and unremarkable. There are calcified tonsilloliths. There is no evidence for a mass in the neck. There are scattered non-enlarged lymph nodes on both sides of the neck. The thyroid gland is unremarkable. The parotid and submandibular glands are symmetric and unremarkable. The carotid arteries and jugular veins are unremarkable. The limited visualized lung apices are unremarkable. There is polypoid mucosal thickening in the left maxillary sinus with areas of high attenuation compatible with fungal infection or inspissated secretions. There is fluid within the right mastoid air cells and middle ear; clinical correlation for acute right-sided otitis media is recommended. The left mastoid air cells are clear and well aerated. IMPRESSION: 1. No acute abnormalities in the neck. 2. Fluid within the right mastoids and filling the middle ears; clinical correlation for acute right-sided otitis media is recommended. 3. Mucosal thickening in the left maxillary sinus with areas of high attenuation compatible with inspissated secretions and/or fungal infection. All CT scans at this facility use dose modulation, iterative reconstruction, and/or weight based dosing when appropriate to reduce radiation dose to as low as reasonably achievable. Finalized by Cyrus Singh MD on 12/26/2023 4:48 PM [facility] Cyrus Singh MD - 04/2023 EXAM: CT NECK WITH CONTRAST CLINICAL INFORMATION: Soft tissue infection suspected, neck, xray done. TECHNIQUE: CT neck was performed utilizing 5 mm axial reconstructions following the uneventful administration of nonionic intravenous contrast. Coronal and sagittal reformatted images were obtained and reviewed. Automated exposure control was utilized. COMPARISON: None. FINDINGS: The mucosal and submucosal spaces are grossly symmetric and unremarkable. There are calcified tonsilloliths. There is no evidence for a mass in the neck. There are scattered non-enlarged lymph nodes on both sides of the neck. The thyroid gland is unremarkable. The parotid and submandibular glands are symmetric and unremarkable. The carotid arteries and jugular veins are unremarkable. The limited visualized lung apices are unremarkable. There is polypoid mucosal thickening in the left maxillary sinus with areas of high attenuation compatible with fungal infection or inspissated secretions. There is fluid within the right mastoid air cells and middle ear; clinical correlation for acute right-sided otitis media is recommended. The left mastoid air cells are clear and well aerated. IMPRESSION: 1. No acute abnormalities in the neck. 2. Fluid within the right mastoids and filling the middle ears; clinical correlation for acute right-sided otitis media is recommended. 3. Mucosal thickening in the left maxillary sinus with areas of high attenuation compatible with inspissated secretions and/or fungal infection. All CT scans at this facility use dose modulation, iterative reconstruction, and/or weight based dosing when appropriate to reduce radiation dose to as low as reasonably achievable. Finalized by Cyrus Singh MD on 12/26/2023 4:48 PM [facility] Study observation (narrative) [facility] CT Neck W contrast IVOrdered By: Cyrus Singh on 12-26-2023 [facility] Work Phone: CT TEMPORAL BONES W CONTon 1 CT TEMPORAL BONES W CONT CT TEMPORAL BONES W CONT CT TEMPORAL BONES W CONT: 12/26/2023 PROVIDED HISTORY: * 73 years old Male * Mastoiditis COMPARISON: CT neck 01/13/2024, MRI brain 05/15/2017 TECHNIQUE: 1. High-resolution temporal bone CT with multiplanar reformats. Examination performed following the uneventful intravenous administration of contrast. 2. All CT scans at this facility use dose modulation, iterative reconstruction, and/or weight based dosing when appropriate to reduce radiation dose to as low as reasonably achievable. FINDINGS: RIGHT: Soft tissue thickening of the external auditory canal extending to the level of the tympanic membrane, without evidence of significant erosions of the osseous external auditory canal. Near complete opacification of the middle ear cavity with surrounding of the otherwise patent ossicular chain. Opacification extends into the aditus ad antrum with associated moderate opacification of the right mastoid air cells. Mastoid air cell septae appear grossly intact. Mastoid process mejia appear intact. Opacification extends to the round window niche. Adjacent distal transverse and sigmoid sinuses appear patent within limitations of technique. No evidence of adjacent peripherally enhancing/drainable collections to suggest associated abscess. Scutum is sharp. Limited evaluation of the tympanic membrane due to middle ear opacification. Thinning of the tegmen mastoideum and tympani, though without definite evidence of olu dehiscence. Normal mineralization surrounding cochlear apparatus. No thinning of the osseous covering of the tympanic segment of the facial nerve. The vestibular apparatus (including semicircular canals), vestibular aqueduct, cochlea, and course of the facial nerve are normal in appearance. LEFT: The external auditory canal is unremarkable. The mastoid air cells are well aerated. The scutum is sharp. Tympanic membrane is unremarkable. Normal tympanic annulus. Tegmen mastoideum and tympani are normal. Middle ear cavity is well aerated. The ossicular chain is intact. Oval and round windows are well aerated. Normal mineralization surrounding cochlear apparatus. No thinning of the osseous covering of the tympanic segment of the facial nerve. The vestibular apparatus (including semicircular canals), vestibular aqueduct, cochlea, and course of the facial nerve are normal in appearance. OTHER: The internal auditory canals are not expanded. No cerebellopontine angle cistern mass. Normal course of the carotid and jugular vasculature. No acute process within the visualized intracranial compartment by CT. IMPRESSION: 1. Constellation of findings for which right otomastoiditis are considered, in the appropriate clinical context. No evidence of associated complication by CT, as described. 2. Thinning of the right tegmen mastoideum and tegmen tympani, without evidence of olu dehiscence, and no evidence of intracranial involvement by CT. If there is concern for intracranial complication, MRI may be of diagnostic value. Finalized by Althea Santillan MD on 12/26/2023 5:13 PM Normal [facility] CT Temporal bone W contrast Starr 12-26-2023 CT TEMPORAL BONES W CONT: 12/26/2023 PROVIDED HISTORY: * 73 years old Male * Mastoiditis COMPARISON: CT neck 01/13/2024, MRI brain 05/15/2017 TECHNIQUE: 1. High-resolution temporal bone CT with multiplanar reformats. Examination performed following the uneventful intravenous administration of contrast. 2. All CT scans at this facility use dose modulation, iterative reconstruction, and/or weight based dosing when appropriate to reduce radiation dose to as low as reasonably achievable. FINDINGS: RIGHT: Soft tissue thickening of the external auditory canal extending to the level of the tympanic membrane, without evidence of significant erosions of the osseous external auditory canal. Near complete opacification of the middle ear cavity with surrounding of the otherwise patent ossicular chain. Opacification extends into the aditus ad antrum with associated moderate opacification of the right mastoid air cells. Mastoid air cell septae appear grossly intact. Mastoid process mejia appear intact. Opacification extends to the round window niche. Adjacent distal transverse and sigmoid sinuses appear patent within limitations of technique. No evidence of adjacent peripherally enhancing/drainable collections to suggest associated abscess. Scutum is sharp. Limited evaluation of the tympanic membrane due to middle ear opacification. Thinning of the tegmen mastoideum and tympani, though without definite evidence of olu dehiscence. Normal mineralization surrounding cochlear apparatus. No thinning of the osseous covering of the tympanic segment of the facial nerve. The vestibular apparatus (including semicircular canals), vestibular aqueduct, cochlea, and course of the facial nerve are normal in appearance. LEFT: The external auditory canal is unremarkable. The mastoid air cells are well aerated. The scutum is sharp. Tympanic membrane is unremarkable. Normal tympanic annulus. Tegmen mastoideum and tympani are normal. Middle ear cavity is well aerated. The ossicular chain is intact. Oval and round windows are well aerated. Normal mineralization surrounding cochlear apparatus. No thinning of the osseous covering of the tympanic segment of the facial nerve. The vestibular apparatus (including semicircular canals), vestibular aqueduct, cochlea, and course of the facial nerve are normal in appearance. OTHER: The internal auditory canals are not expanded. No cerebellopontine angle cistern mass. Normal course of the carotid and jugular vasculature. No acute process within the visualized intracranial compartment by CT. IMPRESSION: 1. Constellation of findings for which right otomastoiditis are considered, in the appropriate clinical context. No evidence of associated complication by CT, as described. 2. Thinning of the right tegmen mastoideum and tegmen tympani, without evidence of olu dehiscence, and no evidence of intracranial involvement by CT. If there is concern for intracranial complication, MRI may be of diagnostic value. Finalized by Althea Santillan MD on 12/26/2023 5:13 PM [facility] Althea Santillan MD - 12/26/2023 CT TEMPORAL BONES W CONT: 12/26/2023 PROVIDED HISTORY: * 73 years old Male * Mastoiditis COMPARISON: CT neck 01/13/2024, MRI brain 05/15/2017 TECHNIQUE: 1. High-resolution temporal bone CT with multiplanar reformats. Examination performed following the uneventful intravenous administration of contrast. 2. All CT scans at this facility use dose modulation, iterative reconstruction, and/or weight based dosing when appropriate to reduce radiation dose to as low as reasonably achievable. FINDINGS: RIGHT: Soft tissue thickening of the external auditory canal extending to the level of the tympanic membrane, without evidence of significant erosions of the osseous external auditory canal. Near complete opacification of the middle ear cavity with surrounding of the otherwise patent ossicular chain. Opacification extends into the aditus ad antrum with associated moderate opacification of the right mastoid air cells. Mastoid air cell septae appear grossly intact. Mastoid process mejia appear intact. Opacification extends to the round window niche. Adjacent distal transverse and sigmoid sinuses appear patent within limitations of technique. No evidence of adjacent peripherally enhancing/drainable collections to suggest associated abscess. Scutum is sharp. Limited evaluation of the tympanic membrane due to middle ear opacification. Thinning of the tegmen mastoideum and tympani, though without definite evidence of olu dehiscence. Normal mineralization surrounding cochlear apparatus. No thinning of the osseous covering of the tympanic segment of the facial nerve. The vestibular apparatus (including semicircular canals), vestibular aqueduct, cochlea, and course of the facial nerve are normal in appearance. LEFT: The external auditory canal is unremarkable. The mastoid air cells are well aerated. The scutum is sharp. Tympanic membrane is unremarkable. Normal tympanic annulus. Tegmen mastoideum and tympani are normal. Middle ear cavity is well aerated. The ossicular chain is intact. Oval and round windows are well aerated. Normal mineralization surrounding cochlear apparatus. No thinning of the osseous covering of the tympanic segment of the facial nerve. The vestibular apparatus (including semicircular canals), vestibular aqueduct, cochlea, and course of the facial nerve are normal in appearance. OTHER: The internal auditory canals are not expanded. No cerebellopontine angle cistern mass. Normal course of the carotid and jugular vasculature. No acute process within the visualized intracranial compartment by CT. IMPRESSION: 1. Constellation of findings for which right otomastoiditis are considered, in the appropriate clinical context. No evidence of associated complication by CT, as described. 2. Thinning of the right tegmen mastoideum and tegmen tympani, without evidence of olu dehiscence, and no evidence of intracranial involvement by CT. If there is concern for intracranial complication, MRI may be of diagnostic value. Finalized by Althea Santillan MD on 12/26/2023 5:13 PM [facility] Radiology Study observation (narrative) [facility] CT Temporal bone W contrast IVOrdered By: Althea Santillan on 12-26-2023 [facility] Work Phone: B. burgdorferi IgG+IgM Qn (S )on 05-24-2023 LYME TOTAL 0.6 A1 Normal <0.9 [facility] Comment on above: Result Comment: Interpretation-------- <0.9 Negative 0.9 - 1.0 Equivocal >1.0 Positive No serological evidence of Borrelia infection.A non-reactive result does not exclude the possibility of Borrelia infection and cannot exclude early infection with B.burgdorferi. If Lyme borreliosis is suspected, a second sample should be collected and tested 2-4 weeks later. Performed By: #### Sandi JOHNSON, 20958-4, 1987-07, 308-1, 17566-5, 50677-2, 71083-6, 92728-8 #### [facility] ([id number]) [address], [address] [place] [address] CBC AND AUTO DIFFon 05-24-19 24 ABSOLUTE BASOPHIL 0.1 X10E9/L Normal 0.0-0.2 [facility] Comment on above: Performed By: #### Sandi JOHNSON, 10311-0, 1987-07, 3083-, 86415-5, 36662-9, 32218-4, 92323-8 #### [facility] ([id number]) [address], [address] [place] [address] ABSOLUTE NEUTROPHIL 7.1 X10E9/L High 1.5-6.6 [facility] Comment on above: Performed By: #### Sandi JOHNSON, 20126-6, 1987-07, 3083-, 61313-1, 19756-1, 06936-8, 72646-0 #### [facility] ([id number]) [address], [address] [place] [address] Basophils/100 WBC (Bld) 1.0 % Normal [facility] Comment on above: Performed By: #### Sandi JOHNSON, 43871-0, 1987-07, 3083-, 22574-5, 51309-5, 87302-3, 86795-6 #### [facility] ([id number]) [address], [address] [place] [address] Eosinophils (Bld) [#/Vol] 0.3 10*3/uL Normal 0.0-0.4 [facility] Comment on above: Performed By: #### C ALEX, 52192-8, 1987-07, 308-1, 39829-4, 84729-7, 31061-5, 94593-3 #### [facility] ([id number]) [address], [address] [place] [address] Eosinophils/100 WBC (Bld) 3.4 % Normal [facility] Comment on above: Performed By: #### C ALEX, 14520-8, 1987-07, 3083-, 73653-8, 58007-5, 28876-0, 81716-5 #### [facility] ([id number]) [address], [address] [place] [address] Erythrocyte distribution width (RBC) [Ratio] 14.1 % Normal 11.5-15.0 [facility] Comment on above: Performed By: #### Sandi JOHNSON, 50809-2, 1987-07, 3083-, 46334-5, 98342-1, 36036-8, 85858-1 #### [facility] ([id number]) [address], [address] [place] [address] Hematocrit (Bld) [Volume fraction] 52.9 % High 39-49 [facility] Comment on above: Performed By: #### Sandi JOHNSON, 31198-0, 1987-07, 3083-, 36276-5, 94136-4, 47017-9, 60779-4 #### [facility] ([id number]) [address], [address] [place] [address] Hemoglobin (Bld) [Mass/Vol] 18.2 g/dL High 13.0-17.0 [facility] Comment on above: Performed By: #### Sandi JOHNSON, 30150-2, 1987-07, 3083-, 07440-6, 61761-3, 22930-9, 95643-2 #### [facility] ([id number]) [address], [address] [place] [address] Lymphocytes (Bld) [#/Vol] 1.1 10*3/uL Normal 1.0-3.5 [facility] Comment on above: Performed By: #### Sandi JOHNSON, 21834-9, 1987-07, 308-1, 16515-2, 68330-6, 42502-8, 21311-7 #### [facility] ([id number]) [address], [address] [place] [address] Lymphocytes/100 WBC (Bld) 11.8 % Normal [facility] Comment on above: Performed By: #### Sandi JOHNSON, 75960-8, 1987-07, 3083-, 65245-9, 54692-2, 60302-1, 52460-4 #### [facility] ([id number]) [address], [address] [place] [address] MCH (RBC) [Entitic mass] 31.5 pg Normal 27-34 [facility] Comment on above: Performed By: #### Sandi JOHNSON, 84358-6, 1987-07, 3083-, 18601-2, 49846-4, 44989-3, 22925-8 #### [facility] ([id number]) [address], [address] [place] [address] MCHC (RBC) [Mass/Vol] 34.5 g/dL Normal 32-36 [facility] Comment on above: Performed By: #### Sandi JOHNSON, 72734-2, 1987-07, 3083-, 47412-0, 42706-2, 33604-4, 68691-3 #### [facility] ([id number]) [address], [address] [place] [address] MCV (RBC) [Entitic vol] 91 fL Normal 80-100 [facility] Comment on above: Performed By: #### Sandi JOHNSON, 00758-5, 1987-07, 308-1, 83945-7, 37615-5, 55110-4, 75592-4 #### [facility] ([id number]) [address], [address] [place] [address] Monocytes (Bld) [#/Vol] 0.7 10*3/uL Normal 0-0.9 [facility] Comment on above: Performed By: #### Sandi JOHNSON, 80541-4, 1987-07, 3083-, 84560-5, 94813-8, 78197-9, 28867-4 #### [facility] ([id number]) [address], [address] [place] [address] Monocytes/100 WBC (Bld) 7.8 % Normal [facility] Comment on above: Performed By: #### Sandi JOHNSON, 02222-3, 1987-07, 3083-, 52352-2, 06194-8, 05817-1, 72333-2 #### [facility] ([id number]) [address], [address] [place] [address] Neutrophils/100 WBC (Bld) 76.0 % Normal [facility] Comment on above: Performed By: #### Sandi JOHNSON, 85693-1, 1987-07, 3083-, 32907-4, 85282-9, 04654-4, 52514-6 #### [facility] ([id number]) [address], [address] [place] [address] Platelet mean volume (Bld) [Entitic vol] 8.8 fL Normal 7-12 [facility] Comment on above: Performed By: #### Sandi JOHNSON, 92146-6, 1987-07, 3083-, 57837-6, 06162-4, 94727-7, 09573-7 #### [facility] ([id number]) [address], [address] [place] [address] Platelets (Bld) [#/Vol] 174 10*3/uL Normal 150-450 [facility] Comment on above: Performed By: #### Sandi JOHNSON, 21945-3, 1987-, 3083-1, 14933-5, 96853-3, 24146-2, 07578-0 #### [facility] ([id number]) [address], [address] [place] [address] RBC COUNT 5.80 X10E12/L High 4.10-5.70 [facility] Comment on above: Performed By: #### Sandi JOHNSON, 94577-4, 1987-07, 3083-, 00418-6, 16796-5, 40090-0, 96562-5 #### [facility] ([id number]) [address], [address] [place] [address] WBC (Bld) [#/Vol] 9.3 10*3/uL Normal 4.0-11.0 [facility] Comment on above: Performed By: #### Sandi JOHNSON, 70645-0, 1987-07, 3083-, 67741-3, 79960-9, 55888-9, 74140-4 #### [facility] ([id number]) [address], [address] [place] [address] CRP [Mass/Vol]on 05-24-2023 C REACTIVE PROTEIN 0.6 mg/dL Normal 0.000-0.744 [facility] Comment on above: Performed By: #### Sandi JOHNSON, 33382-8, 1987-07, 3083-, 42249-6, 35123-8, 45015-9, 70337-4 #### [facility] ([id number]) [address], [address] [place] [address] ESR Photometric method (Bld) [Velocity]on 05-24-2023 ESR, ERYTHROCYTE SEDIMENTATION RATE 14 mm/h Normal 0-20 [facility] Comment on above: Performed By: #### C ALEX, 79571-2, 1987-07, 308-1, 22808-6, 33843-2, 82761-1, 79168-4 #### [facility] ([id number]) [address], [address] [place] [address] HLA-B27 FC Ql (Bld/Tiss)on 0 05-24-2023 HLA-B27 TYPING Negative Normal [facility] Comment on above: Performed By: #### Sandi JOHNSON, 21124-5, 1987-07, 3083-, 47013-3, 81501-3, 40839-0, 89966-5 #### [facility] ([id number]) [address], [address] [place] [address] Nuclear Ab IA Ql (S)on CHIKI Screen w/reflex Negative Normal NEG [facility] Comment on above: Result Comment: Testing performed using multiplex flow immunoassay. Eleven different antigens associated with systemic autoimmune diseases (dsDNA,Sm,Sm/[employer]PAT[employer],Chromatin, SSA,SSB,Yessica-1,Scl70,Ribo P,Centromere B) are included in this screening test. Performed By: #### Sandi JOHNSON, 73520-6, 1987-07, 3083-, 08603-9, 94427-2, 48678-8, 68933-3 #### [facility] ([id number]) [address], [address] [place] [address] Rheumatoid factor Nephelomet ry Qn (S)on 05-24-2023 RHEUMATOID FACTOR <10 Normal <20 [facility] Comment on above: Performed By: #### Sandi JOHNSON, 34672-1, 1987-07, 3083-, 92023-3, 28064-4, 78680-7, 30540-4 #### [facility] ([id number]) [address], [address] [place] [address] URIC ACIDon 05-24-2023 Urate [Mass/Vol] 4.1 mg/dL Normal 2.6-7.2 [facility] Comment on above: Performed By: #### C BCA, 81991-2, 1988-5, 3084-1, 60925-9, 98718-9, 87822-8, 17748-4 #### [facility] ([id number]) [address], [address] [place] [address] COMPREHENSIVE METABOLIC PANE Cricket 04-23-2023 Albumin [Mass/Vol] 4.7 g/dL Normal 3.2-5.3 [facility] Comment on above: Performed By: #### 3 084-1, 21131-7, CMP #### [facility] ([id number]) [address], [address] [place] [address] ALP [Catalytic activity/Vol] 91 U/L Normal 39-130 [facility] Comment on above: Performed By: #### 3 084-1, 05956-7, CMP #### [facility] ([id number]) [address], [address] [place] [address] ALT [Catalytic activity/Vol] 24 U/L Normal 0-40 [facility] Comment on above: Performed By: #### 3 084-1, 17316-1, CMP #### [facility] ([id number]) [address], [address] [place] [address] Anion gap [Moles/Vol] 8 mmol/L Normal 5-15 [facility] Comment on above: Performed By: #### 3 084-1, 47908-1, CMP #### [facility] ([id number]) [address], [address] [place] [address] AST [Catalytic activity/Vol] 17 U/L Normal 0-41 [facility] Comment on above: Performed By: #### 3 084-1, 31375-3, CMP #### [facility] ([id number]) [address], [address] [place] [address] Bilirubin [Mass/Vol] 0.7 mg/dL Normal 0.3-1.2 [facility] Comment on above: Performed By: #### 3 084-1, 84486-4, CMP #### [facility] ([id number]) [address], [facility] [address] [place] [address] Calcium [Mass/Vol] 9.6 mg/dL Normal 8.5-10.5 [facility] Comment on above: Performed By: #### 3 084-1, 29401-0, CMP #### [facility] ([id number]) [address], [facility] [address] [place] [address] Chloride [Moles/Vol] 105 mmol/L Normal 98-109 [facility] Comment on above: Performed By: #### 3 084-1, 14129-2, CMP #### [facility] ([id number]) [address], [facility] [address] [place] [address] CO2 [Moles/Vol] 31 mmol/L Normal 22-32 [facility] Comment on above: Performed By: #### 3 084-1, 79009-9, CMP #### [facility] ([id number]) [address], [facility] [address] [place] [address] Creatinine [Mass/Vol] 1.01 mg/dL Normal 0.60-1.30 [facility] Comment on above: Result Comment: METH OD TRACEABLE TO IDMS STANDARD Performed By: #### 3 084-1, 87631-4, CMP #### [facility] ([id number]) [address] [place] [address] GFR/1.73 sq M.predicted among non-blacks MDRD (S/P/Bld) [Vol rate/Area] 79 mL/min/{1.73_m2} Normal >59 [facility] Comment on above: Result Comment: Reported eGFR is based on the CKD-EPI 2020 equation that does not use a race coefficient. Performed By: #### 3 084-1, 53353-2, CMP #### [facility] ([id number]) [address] [place] [address] Glucose [Mass/Vol] 93 mg/dL Normal 65-99 [facility] Comment on above: Performed By: #### 3 084-1, 52627-5, CMP #### [facility] ([id number]) [address], [address] [place] [address] Potassium [Moles/Vol] 4.0 mmol/L Normal 3.5-5.0 [facility] Comment on above: Performed By: #### 3 084-1, 72011-9, CMP #### [facility] ([id number]) [address], [address] [place] [address] Protein [Mass/Vol] 7.1 g/dL Normal 6.0-8.0 [facility] Comment on above: Performed By: #### 3 084-1, 11604-4, CMP #### [facility] ([id number]) [address], [address] [place] [address] Sodium [Moles/Vol] 144 mmol/L Normal 134-146 [facility] Comment on above: Performed By: #### 3 084-1, 39376-0, CMP #### [facility] ([id number]) [address], [address] [place] [address] Urea nitrogen [Mass/Vol] 14 mg/dL Normal 5-27 [facility] Comment on above: Performed By: #### 3 084-1, 54029-0, CMP #### [facility] ([id number]) [address], [address] [place] [address] Lipid 1996 panelon 4 Cholesterol [Mass/Vol] 156 mg/dL Normal 150-200 [facility] Comment on above: Performed By: #### 3 084-1, 41268-1, CMP #### [facility] ([id number]) [address], [facility] [address] [place] [address] Cholesterol in HDL [Mass/Vol] 54 mg/dL Normal >39 [facility] Comment on above: Result Comment: HDL <40 mg/dL - High Risk HDL > or = 40mg/dL- Desirable HDL >60 mg/dL - Negative Risk Performed By: #### 3 084-1, 30851-5, CMP #### [facility] ([id number]) [address] [place] [address] Cholesterol in LDL [Mass/Vol] 78 mg/dL Normal <130 [facility] Comment on above: Result Comment: LDL <100 mg/dL - Desirable LDL >160 mg/dL - High Risk Performed By: #### 3 084-1, 34387-0, CMP #### [facility] ([id number]) [address], [address] [place] [address] Cholesterol in VLDL [Mass/Vol] 24 mg/dL Normal 0-30 [facility] Comment on above: Performed By: #### 3 084-1, 19439-0, CMP #### [facility] ([id number]) [address], [facility] [address] [place] [address] CHOLESTEROL:HDL 2.9 Normal 1.0-5.0 [facility] Comment on above: Performed By: #### 3 084-1, 83310-1, CMP #### [facility] ([id number]) [address], [address] [place] [address] Triglyceride [Mass/Vol] 121 mg/dL Normal 27-150 [facility] Comment on above: Performed By: #### 3 084-1, 05166-1, CMP #### [facility] ([id number]) [address], [address] [place] [address] POCT urinalysis dipstick onl yon 04-23-2023 External Poct Urine Bilirubin Negative [facility] External Poct Urine Blood Negative [facility] External Poct Urine Glucose Negative [facility] External Poct Urine Ketones Negative [facility] External Poct Urine Leukocyte Esterase Negative [facility] External Poct Urine Nitrite Negative [facility] External Poct Urine Ph 5.0 [facility] External Poct Urine Protein Negative [facility] External Poct Urine Specific [place] 1.025 [facility] External Poct Urine Urobilinogen 0.2 [facility] Interpretation and review of laboratory results Normal [facility] URIC ACIDon 04-23-2023 Urate [Mass/Vol] 4.7 mg/dL Normal 2.6-7.2 [facility] Comment on above: Performed By: #### 3 084-1, 37592-6, CMP #### [facility] ([id number]) [address] [place] [address] CNOVon 07-06-2020 CNOV Office Visit (YANDEL ) YUE DELGADILLO ([id number]) 1950 M Date Time Provider Department 07/06/20 11:00 AM Palmira GARCIA During your visit today, we recorded the following information about you: Temperature Pulse Respiration Blood pressure 98.1 degrees 68/minute 16/minute 106/82 Weight 95.9 kg G Eyal Garcia MD 07/09/2020 8:13 AM Signed Radiation Oncology - Prostate Cancer New Patient/Consult Note PATIENT NAME: Yue Delgadillo PATIENT REQUESTING PROVIDER: Dr. Maddox DIAGNOSIS: 70 year old male with prostate adenocarcinoma, initial PSA 8.07, biopsy Rama score 4 + 4 = 8 (grade group 4), clinical stage T1c, N0, M0, stage IIC [T1-T2, N0, M0, PSA <20, GG 4] (AJCC 8th ed.), s/p TRUS Random biopsy. HPI: 70 year old male with prostate adenocarcinoma who presents for an opinion regarding the role of radiation therapy in the management of the patient's disease. Final recommendations will be communicated back to the requesting physician by way of the shared medical record, or letter to requesting physician via US mail. The patient was diagnosed with prostate cancer and comes in today to discuss treatment options. Patient presented with an elevated PSA of 7.26 on 04/13/2020. This is repeated on 04/23/2020 with a value of 8.07 with 11.8% free. Patient had had previous negative prostate biopsy approximately 10 years ago. PSA history: 11/30/2015 4.22 01/08/2018 5.28 Prostate biopsy on June 17, 2020 revealed: Adenocarcinoma, [place] 8 (4+4) from the L2, L3, L4 biopsy cores(2/2 each area). No disease noted from the cores on the right. Ultrasound showing 38.6 cm? gland slightly heterogeneous, without hypoechoic areas. Total # of positive biopsy cores: 6 Total # of biopsy cores sampled: 16 Greatest % cancer in any single core: 25-50% Staging Studies: Bone Scan Results: 07/01/2020 no evidence of metastatic disease. CAT Scan Results: 07/01/2020, CT abdomen and pelvis, cholelithiasis without evidence of acute cholecystitis. No evidence amount of metastatic disease. Mildly enlarged prostate measuring 5.6 cm. Previous Treatment for Prostate Cancer: None Genomic Testing: None The patient reports the following pertinent history: Urinary frequency (D/N): 4-5/1 Dysuria: No Incontinence: 1- No pads Hematuria: No - Total AUA Score: 6 Bowel Movement Frequency: 1/day Bowel Movement Quality: Normal Blood per Rectum: No Baseline Erectile Function: 4- Diminished but unsatisfactory for intercourse Androgen Deprivation: none Prior Radiation Therapy, Collagen Vascular Disease, or Inflammatory Bowel Disease: No Currently on Anticoagulation: Yes, fpc ASA History of Hip Replacement: No History of Prior TURP: No ALLERGIES Allergen Reactions - Cipro [Ciprofloxaci* Other: See Comments Anxiousness - Erythromycin Hives And anxiousness - Pork Derived (Porci* Hives ALLOPURINOL ORAL Take 300 mg by mouth once daily. amLODIPine (NORVASC) 10 mg tablet Take 10 mg by mouth once daily. aspirin, enteric coated (ASPIRIN, ENTERIC COATED) 81 mg EC tablet Take 81 mg by mouth once daily. docosahexaenoic acid/epa (FISH OIL ORAL) Take 1,000 mg by mouth once daily. hydroCHLOROthiazide (HYDRODIURIL, ESIDRIX) 25 mg tablet Take 25 mg by mouth once daily. MULTI-VITAMIN ORAL Take by mouth once daily. omeprazole (PRILOSEC) 20 mg capsule Take 20 mg by mouth once daily. simvastatin (ZOCOR) 20 mg tablet Take 20 mg by mouth daily at bedtime. PAST MEDICAL HISTORY Diagnosis Date - Arthritis - Asthma - Hx of gout - Hyperlipidemia - Hypertension - Prostate cancer (HCC) PAST SURGICAL HISTORY Procedure Laterality Date - APPENDECTOMY HX - TOTAL KNEE REPLACEMENT Right 12/2019 FAMILY HISTORY Problem Relation Age of Onset - Cancer Sister Breast - Cancer Sister Ovarian cancer- 74 years old Social History Tobacco Use - Smoking status: Former Smoker Quit date: 07/06/1974 Years since quittin.0 - Smokeless tobacco: Never Used Vaping Use - Vaping Use: Never used Substance Use Topics - Alcohol use: Yes Alcohol/week: 6.0 standard drinks Types: 6 Cans of Beer (12oz) per week Comment: 1- 6 pack/week - Drug use: Never REVIEW OF SYSTEMS: GENERAL: Negative for weight loss, fevers, chills, or night sweats. HEENT: Negative for sudden vision or hearing changes. NECK: Negative for masses in the neck. RESPIRATORY: Negative for cough or shortness of breath. CARDIAC: Negative for chest pain, palpitations, murmurs, or syncopal episodes. GASTROINTESTINAL: See HPI GENITOURINARY: See HPI MUSCULOSKELETAL: Negative for limitations in movement, pain, or swelling. NEURO: Negative for dizziness, headache, weakness or numbness. HEMATOLOGIC: Negative for bleeding or easy bruising. SKIN: Negative for rashes or other skin changes. PHYSICAL EXAM: VS: BP (more content not included)... Normal [facility] OT-US PROSTATE IMPORTon 05-25 OT-US PROSTATE IMPORT Images were obtained outside of [facility] [id number] Normal [facility] MRI L-Ext w/o Contrast RTon 05-05-2020 MR Lower extremity - right WO contrast EXAMINATION TYPE: MRI L-Ext w/o Contrast RT DATE OF EXAM : 05/05/2020 3:48 PM HISTORY: M17.11, RIGHT knee and calf pain and swelling since last week, erythema COMPARISON: NONE TECHNIQUE: Multiplanar, multisequence MR imaging of the RIGHT knee and majority of the proximal tibia and fibula without IV contrast. FINDINGS: Moderate-sized, debris-containing Mott's cyst, measuring approximately 30.0 x 2.0 x 4.0 cm. Moderate amount of fluid tracks inferiorly between the soleus and surrounding the medial head of the gastrocnemius. Mild to moderate soft tissue swelling and subcutaneous edema, particularly at the medial and posterior aspects of the calf. The plantaris tendon appears attenuated, but appears grossly intact. No retracted tendon stump is visualized. Status post medial unicompartmental arthroplasty. Adjacent areas are obscured by metallic susceptibility artifact. No acute fracture is visualized. Small to moderate-sized suprapatellar joint effusion, nonspecific, with synovial thickening, suggesting synovitis. IMPRESSION: 1. Findings consistent with a ruptured Mott's cyst, with a moderate amount of fluid tracking inferiorly between the soleus and surrounding the medial head of the gastrocnemius. Additionally, debris within the Mott's cyst suggests synovitis. 2. Attenuated but grossly intact plantaris tendon. No retracted tendon stump is visualized. 3. Moderate amount of soft tissue swelling and subcutaneous edema at the posteromedial aspect of the proximal calf. This is nonspecific, but may be reactive or correlate with clinical findings of cellulitis. 4. Status post medial unicompartmental arthroplasty. 5. Small moderate-sized suprapatellar joint effusion, nonspecific, with evidence of synovitis. Milana Massey thanks you for the opportunity to care for your patient. Workstation ID: [id number] FINAL REPORT Dictated By: Isak Sanchez MD 05/05/2020 15:52 Assigned Physician: Isak Sanchez MD Reviewed and Electronically Signed By: Isak Sanchez MD 05/05/2020 16:02 Transcribed by: ASHLEY 05/05/2020 15:52 Technologist: RAVINDRA Posey [facility] Basic Metabolic Panelon Calcium [Mass/Vol] 10.1 mg/dL Normal 8.5-10.6 [facility] Chloride [Moles/Vol] 101 mmol/L Normal 98-107 [facility] CO2 [Moles/Vol] 25 mmol/L Normal 21-32 [facility] Creatinine [Mass/Vol] 0.93 mg/dL Normal 0.70-1.30 [facility] Glucose [Mass/Vol] 108 mg/dL High 70-99 [facility] Potassium [Moles/Vol] 4.0 mmol/L Normal 3.5-5.1 [facility] Sodium [Moles/Vol] 139 mmol/L Normal 136-145 [facility] Urea nitrogen (BldV) [Mass/Vol] 17 mg/dL Normal 7.0-18.0 [facility] Urea nitrogen/Creatinin e [Mass ratio] 18 mg/mg Normal [facility] CBC with Differentialon Basophils (Bld) [#/Vol] 0.1 thou/mcL Normal 0.0-0.2 [facility] Basophils/100 WBC (Bld) 0.9 % Normal 0-3 [facility] Differential cell count method Nom (Bld) AUTOMATED DIFFERENTIAL Normal [facility] Eosinophils (Bld) [#/Vol] 0.4 thou/mcL Normal 0.0-0.4 [facility] Eosinophils/100 WBC (Bld) 5.0 % Normal 0-7 [facility] Erythrocyte distribution width (RBC) [Entitic vol] 13.9 % Normal 11.7-15.0 [facility] Hematocrit (Bld) [Volume fraction] 48.3 % Normal 34.0-50.0 [facility] Hemoglobin (Bld) [Mass/Vol] 16.6 g/dL Normal 11.5-17.0 [facility] Lymphocytes (Bld) [#/Vol] 1.3 thou/mcL Normal 0.7-4.5 [facility] Lymphocytes/100 WBC (Bld) 15.4 % Normal 14-46 [facility] MCH (RBC) [Entitic mass] 31.5 Picograms Normal 27.0-34.0 [facility] MCHC (RBC) [Mass/Vol] 34.4 g/dL Normal 32.0-36.0 [facility] MCV (RBC) [Entitic vol] 91.6 fL Normal 80-98 [facility] Monocytes (Bld) [#/Vol] 0.6 thou/mcL Normal 0.1-1.0 [facility] Monocytes/100 WBC (Bld) 7.4 % Normal 4-13 [facility] Neutrophils (Bld) [#/Vol] 6.1 thou/mcL Normal 1.5-7.8 [facility] Neutrophils/100 WBC (Bld) 71.3 % Normal 40-74 [facility] Platelet mean volume (Bld) [Entitic vol] 8.8 fL Normal 7.5-11.2 [facility] Platelets (Bld) [#/Vol] 224 thou/mcL Normal 140-415 [facility] RBC (Bld) [#/Vol] 5.28 x(10)6/mcL Normal 3.80-5.60 Mo [facility] WBC (Bld) [#/Vol] 8.5 thou/mcL Normal 4.0-10.5 [facility] Basic Metabolic Panelon - Calcium [Mass/Vol] 9.7 mg/dL Normal 8.5-10.6 [facility] Chloride [Moles/Vol] 102 mmol/L Normal 98-107 [facility] CO2 [Moles/Vol] 25 mmol/L Normal 21-32 [facility] Creatinine [Mass/Vol] 0.99 mg/dL Normal 0.70-1.30 [facility] Glucose [Mass/Vol] 104 mg/dL High 70-99 [facility] Potassium [Moles/Vol] 3.9 mmol/L Normal 3.5-5.1 [facility] Sodium [Moles/Vol] 140 mmol/L Normal 136-145 [facility] Urea nitrogen (BldV) [Mass/Vol] 16 mg/dL Normal 7.0-18.0 [facility] Urea nitrogen/Creatinin e [Mass ratio] 16 mg/mg Normal [facility] CBC with Differentialon 11-25 Basophils (Bld) [#/Vol] 0.1 thou/mcL Normal 0.0-0.2 [facility] Basophils/100 WBC (Bld) 0.7 % Normal 0-3 [facility] Differential cell count method Nom (Bld) AUTOMATED DIFFERENTIAL Normal [facility] Eosinophils (Bld) [#/Vol] 0.4 thou/mcL Normal 0.0-0.4 [facility] Eosinophils/100 WBC (Bld) 3.8 % Normal 0-7 [facility] Erythrocyte distribution width (RBC) [Entitic vol] 14.5 % Normal 11.7-15.0 [facility] Hematocrit (Bld) [Volume fraction] 50.2 % High 34.0-50.0 [facility] Hemoglobin (Bld) [Mass/Vol] 17.2 g/dL High 11.5-17.0 [facility] Lymphocytes (Bld) [#/Vol] 1.2 thou/mcL Normal 0.7-4.5 [facility] Lymphocytes/100 WBC (Bld) 12.5 % Low 14-46 [facility] MCH (RBC) [Entitic mass] 31.3 Picograms Normal 27.0-34.0 [facility] MCHC (RBC) [Mass/Vol] 34.3 g/dL Normal 32.0-36.0 [facility] MCV (RBC) [Entitic vol] 91.2 fL Normal 80-98 [facility] Monocytes (Bld) [#/Vol] 0.7 thou/mcL Normal 0.1-1.0 [facility] Monocytes/100 WBC (Bld) 7.6 % Normal 4-13 [facility] Neutrophils (Bld) [#/Vol] 7.3 thou/mcL Normal 1.5-7.8 [facility] Neutrophils/100 WBC (Bld) 75.4 % High 40-74 [facility] Platelet mean volume (Bld) [Entitic vol] 9.1 fL Normal 7.5-11.2 [facility] Platelets (Bld) [#/Vol] 166 thou/mcL Normal 140-415 [facility] RBC (Bld) [#/Vol] 5.50 x(10)6/mcL Normal 3.80-5.60 Mo [facility] WBC (Bld) [#/Vol] 9.7 thou/mcL Normal 4.0-10.5 [facility] Ambulatory Patient Education on 06-04-2017 Ambulatory Patient Education Patient Education MaterialsName: Yue Delgadillo Current Date: 06/04/2017 16:36:53 [place] 1950 following sheet(s) are the Patient Education Leaflets for [facility]ue Delgadillo [facility]: Causes of Dizziness (Vertigo) Benign positional vertigo (BPV)This is the most common cause of vertigo. BPV is also called benign positional paroxysmal vertigo (BPPV). It happens when crystals in the ear canals shift into the wrong place. Vertigo usually occurs when you move your head in a certain way. This can happen when turning in bed, bending, or looking up. Because BPV comes on quickly, you should think about if you are safe to drive or do other tasks that need your full attention.BPV:? Causes vertigo that last for seconds. Vertigo can occur several times a day, depending on body position.? Doesn't cause hearing loss? Often goes away on its own. But it but may go away sooner with treatment.Infection or inflammationSometimes the semicircular canals swell and send incorrect balance signals. This problem may be caused by a viral infection. Depending on the cause, your hearing can be affected (labyrinthitis). Or your hearing can remain normal (neuronitis).Infection or inflammation:? Causes vertigo that lasts for hours or days. The first episode is usually the worst.? Can cause hearing loss? Often goes away on its own. But it may go away sooner with treatment.You may need vestibular rehabilitation if you have balance problems that don't go away.Meniere's diseaseThis condition is uncommon. It happens when there is too much fluid in the ear canals. This causes increased pressure and swelling. It affects balance and hearing signals.Meniere's disease may:? Cause vertigo that last for hours? Cause hearing problems that come and go. The problems are usually in one ear and get worse over time.? Cause buzzing or ringing in the ears (tinnitus)? Cause a feeling of fullness or pressure in the ear? Cause any of these symptoms: vertigo, hearing loss, tinnitus, or ear fullness to last a lifetime? [id number] [employer]. [address] [place] [address]. All rights reserved. This information is not intended as a substitute for professional medical care. Always follow your healthcare professional's instructions. Normal [facility] Otolaryngology Office/Clinic Noteon 05-31-2017 Otolaryngology Office/Clinic Note HISTORY: Patient was seen today for audiologic assessment, referred by Margo Chang PA-C, regarding dizziness. He was initially referred by Dr. Ramirez. He was recently seen in the [facility] for an MRI and CT scan, and was given a possible diagnosis of Meniere?s disease. Patient?s symptoms began approximately 3 weeks ago, with severe sinus infection with headaches. He indicates that he first noticed the dizziness when bending over, and describes a feeling of the room spinning. He fell in response to this dizziness. He reports that quick movements make the dizziness worse. He was recently seen by his primary care physician, and was prescribed antibiotics and meclizine. He did not note improvement in symptoms following use of these prescriptions. CT at the time showed sinus infection. He also notes bilateral hearing loss, worse on the left side, bilateral tinnitus worse on the left side, as well as aural fullness on the left side. He reports significant noise exposure at work, as well as in recreational activities, such as riding motorcycles, shooting firearms, and attending loud concerts. He reports consistent use of hearing protection. He indicates that he shoots right-handed, and can tell a difference in his hearing on the left side following several occasions of loud firearm use on the right side. Patient is also scheduled for VNG today. No new concerns or complaints today.AUDIOMETRICS: Otoscopy revealed clear canals, bilaterally. Tympanometry revealed normal middle ear pressure and compliance, bilaterally. Pure tone audiometry suggested moderate sensorineural hearing loss at 4000 Hz for the right ear and moderately severe rising to moderate sensorineural hearing loss from 7190-0189 Hz for the left ear. Speech recognition scores were in good agreement with pure tone averages, bilaterally. Word recognition scores were excellent at 96% for the right ear and good at 84% for the left ear.SUMMARY: Moderate sensorineural hearing loss at 4000 Hz for the right ear and moderately severe rising to moderate sensorineural hearing loss from 3661-5282 Hz for the left ear. Patient is a borderline hearing aid candidate, more so for the left ear than the right, but expressed that he is not interested in hearing aids at this time. Patient to follow up with Margo Chang PA-C, regarding these test results. Additional testing may be warranted, due to asymmetry of hearing loss; although asymmetry may be related to more noise exposure on the left side.RECOMMENDATIONS:1. Follow up with Margo Chang PA-C, regarding results of today?s audiologic evaluation.2. Return for hearing aid evaluation if interested in discussing amplification options.3. Continued use of hearing protection devices when exposed to loud sounds.Electronically signed by Phylicia Duarte 05/31/17 12:11 EST Normal [facility] Otolaryngology Office/Clinic Note Chief Complaint VNGHistory of Present Illness History of Present Illness HPI: Per pt , he is doing about the same as he was last week. Pt believes he is a little better. Pt still tries to not move too fast to avoid it.Review of Systems General Adult ROS Fatigue: No Appetite change: No Other General: No Weakness: No Weight gain: No Weight Loss: No Cardiovascular EENMT Bleeding gums: No Dental pain: No Ear pain: No Facial pain: No Hearing loss: No Hoarseness: No Mouth lesions: No Nasal congestion: No Nasal discharge: No Nosebleeds: No Other EENMT: No Postnasal drainage: No Sore_throat: No Tinnitus: No Vision Changes: No Gastrointestinal Genitourinary Hematologic/Lymphatic Musculoskeletal Neurological Psychiatric Respiratory Cough: No Hemoptysis: No Other Respiratory: No Shortness_of_breath: No Snoring: No Sputum production: No Wheezing: No SkinPhysical Exam Vitals & Measurements BP: 129/85 HT: 180.3 cm WT: 97.45 kg BMI: 29.98 Additional Vitals Body Mass Index Measured: 29.98 kg/m2 BP Position/Location: Sitting, Right arm Peripheral Pulse Rate: 82 bpmAssessment/Plan 1. Vertigo VNG completed. REsolving inner ear abnormality notedProblem List/Past Medical History Ongoing Acute bronchitis GERD Gout Headache Hypercholesterolemia Hypertension Knee pain Loss of balance Historical No qualifying dataProcedure/Surgical History APPENDECTOMY.Medications Aleve 220 mg oral tablet, 1 caps, Oral, Daily, PRN allopurinol 300 mg oral tablet, 300 mg, 1 tabs, Oral, Daily amLODIPine 10 mg oral tablet, 10 mg, 1 tabs, Oral, Daily Flovent HFA 110 mcg/inh inhalation aerosol, 2 puffs, Inhale, BID fluticasone 50 mcg/inh nasal spray, 1 sprays, Nasal, qAM, 2 refills hydrOXYzine hydrochloride 25 mg oral tablet, 25 mg, 1 tabs, Oral, Daily multivitamin, 1 tabs, Oral, Daily omeprazole, 20 mg, Oral, Daily simvastatin 20 mg oral tablet, 20 mg, 1 tabs, Oral, DailyAllergies Augmentin (Hives)Social History Tobacco Former smoker, CigarettesFamily History Heart attack: Father. Stroke: Mother.Diagnostic Results No qualifying data available. No qualifying data available. No qualifying data available. No qualifying data available.Electronically signed by Margo Fernández PA-C 06/01/17 13:23 EST Normal [facility] Ambulatory Patient Education on 05-23-2017 Ambulatory Patient Education Patient Education MaterialsName: Yue Delgadillo Current Date: 05/23/2017 08:36:14 [place] 1950 following sheet(s) are the Patient Education Leaflets for Yue Delgadillo [facility]: Causes of Dizziness (Vertigo) Benign positional vertigo (BPV)This is the most common cause of vertigo. BPV is also called benign positional paroxysmal vertigo (BPPV). It happens when crystals in the ear canals shift into the wrong place. Vertigo usually occurs when you move your head in a certain way. This can happen when turning in bed, bending, or looking up. Because BPV comes on quickly, you should think about if you are safe to drive or do other tasks that need your full attention.BPV:? Causes vertigo that last for seconds. Vertigo can occur several times a day, depending on body position.? Doesn't cause hearing loss? Often goes away on its own. But it but may go away sooner with treatment.Infection or inflammationSometimes the semicircular canals swell and send incorrect balance signals. This problem may be caused by a viral infection. Depending on the cause, your hearing can be affected (labyrinthitis). Or your hearing can remain normal (neuronitis).Infection or inflammation:? Causes vertigo that lasts for hours or days. The first episode is usually the worst.? Can cause hearing loss? Often goes away on its own. But it may go away sooner with treatment.You may need vestibular rehabilitation if you have balance problems that don't go away.Meniere's diseaseThis condition is uncommon. It happens when there is too much fluid in the ear canals. This causes increased pressure and swelling. It affects balance and hearing signals.Meniere's disease may:? Cause vertigo that last for hours? Cause hearing problems that come and go. The problems are usually in one ear and get worse over time.? Cause buzzing or ringing in the ears (tinnitus)? Cause a feeling of fullness or pressure in the ear? Cause any of these symptoms: vertigo, hearing loss, tinnitus, or ear fullness to last a lifetime? [id number] [employer]. [address] [place] [address], [place] [address]. All rights reserved. This information is not intended as a substitute for professional medical care. Always follow your healthcare professional's instructions. Normal [facility] Otolaryngology Office/Clinic Noteon 05-23-2017 Otolaryngology Office/Clinic Note Chief Complaint Vertigo- referral from [facility] of Present Illness History of Present Illness HPI: Patient states he has had it for abot 3 weeks, Patient was in the [facility] for the dizziness, had an MRI and CT scan, and was told it could be Meineres. Did see neurologist. Started 3 weeks ago, had severe sinus infection with headaches. First noticed when bending over, room was spinning and he fell over. Quick movements will make him worse. Saw GP was given atb and meclizine. DId not really help symptoms. CT at the time showed sinus infection. Head feels heavy. would feel symptoms when he rolls over in bed. WIll feel sick to his stomach. Feels may be a bit better. Left side feels full to him. DId hear a funny noise in his left ear once or twice. Never has had before. Has had an MRI and carotid doppler which were normal. Has been a round of steroids, is currently on. CT was reviewed found only to have maxillary sinusitis. THis causes him a fair bit of anxiety as well. He was referred by Dr. Ramirez and all notes were reviewedReview of Systems General Adult ROS Fatigue: Yes Appetite change: No Other General: No Weakness: No Weight gain: No Weight Loss: No Cardiovascular Chest pain/pressure: No Claudication: No Edema: No Orthopnea: No Other Cardiovascular: Yes Palpitations: No Syncope: No EENMT Bleeding gums: No Dental pain: No Ear pain: No Facial pain: No Hearing loss: No Hoarseness: No Mouth lesions: No Nasal congestion: No Nasal discharge: No Nosebleeds: No Other EENMT: No Postnasal drainage: No Sore_throat: No Tinnitus: Yes Vision Changes: No Gastrointestinal Abdominal pain: No Constipation: No Diarrhea: No Dysphagia: No Fecal incontinence: No Heartburn: No Nausea: Yes Other GI: No Stools, black/bloody: No Vomiting: No Vomiting blood: No Genitourinary Hematologic/Lymphatic Musculoskeletal Neurological Psychiatric Respiratory Cough: No Hemoptysis: No Other Respiratory: No Shortness_of_breath: No Snoring: No Sputum production: No Wheezing: No SkinPhysical Exam Vitals & Measurements BP: 155/92 HT: 180.3 cm WT: 96.55 kg BMI: 29.7 Overall:[Communication mode is clear, normal] [Appearance- no acute distress, appears stated age and is well nourished] Assistive device:[ none] Head:[normocephalic, no trauma, lesions or asymmetry] Ocular appearance:[ Conjuctiva- clear and bright, no drainage or infection. EOM intact] Ears:[ external ear- normal shape, no signs of infection, mass, lesion or asymmetry bilaterally. Ear canal is healthy, free from wax and infection, bilaterally] [Eardrum-healthy, no sign of infection, trauma, perforation or infection] [Middle ear- healthy, no obvious fluid present or infection] Nose:[ External- healthy, no sign of asymmetry, lesion or infection] Septum:[ Midline, no sign of perforation, infection or deviation] Turbinates:[ normal, no hypertrophy, mass or polyp] Nasal passages:[ clear, no infection, drainage or obstruction] Oral cavity:[ Normal, tongue healthy no mass, lesion or infection. Soft and hard palate normal. Bimanual palpation is normal. Mucosa moist, free from infection][ Benign gingiva, good dental hygiene][Tonsil size is normal, no asymmetry, mass or lesionn][oropharynx- clear, no evidence of post nasal drip, cobblestoning or other abnormalities] Nasopharynx:[ unable to view with mirror due to gagging] Larynx:[ Unable to view with mirror due to gagging] Neck:[ Salivary gland exam is normal, no enlargement or tenderness. No lymph node enlargement. TMJ exam is normal, no tenderness noted][ Thyroid exam is normal, no masses or tenderness]]. Mental Status:[Alert and oriented x3][Mood and affect normal][Gait is normal]. Noel-pike neg. Additional Vitals Body Mass Index Measured: 29.7 kg/m2 BP Position/Location: Sitting, Right arm Peripheral Pulse Rate: 60 bpmAssessment/Plan 1. Vertigo Plan full workup for vestiublar system with audiogram and VNG. Pt reassured with inner ear conditions these usually improve with time. Finish out current meds but no new meds added for dizziness. He should try to be active but avoid laying flat for now.At least 20 min was spent in discussion of symptoms, plan of care and likely progression. Pt expressed understanding Ordered: fluticasone nasal, 1 sprays, Nasal, qAM, # 1 EA, 2 Refill(s), Pharmacy: [facility] [id number] [id number] AMB office consultation new or EST patient, mod to high 2. Nausea Can take nausea med intermittently for nausea Ordered: [id number] AMB office consultation new or EST patient, mod to high 3. Maxillary sinusitis Flonase added to relieve any continued sinus congestion, this is unlikely to have caused his imbalance. Ordered: [id number] AMB office consultation new or EST patient, mod to highProblem List/Past Medical History Ongoing Acute bronchitis GERD Gout Headache Hypercholesterolemia Hypertension Knee pain Loss of balance Historical No qualifying dataProcedure/Surgical History APPENDECTOMY.Medications fluticasone 50 mcg/inh nasal spray, 1 sprays, Nasal, qAM, 2 refillsAllergies Augmentin (Hives)Social History Tobacco Former smoker, CigarettesFamily History Heart attack: Father. Stroke: Mother.Diagnostic Results No qualifying data available. No qualifying data available. No qualifying data available. No qualifying data available.Electronically signed by Margo Fernández PA-C 05/23/17 11:14 EST Normal [facility] Vital Signs Date Time Vital Sign Value Performing Clinician Facility 05-01-2024 08:30-0500 Body height 175.3 cm Brianna Brunner MD Work Phone: [facility] 05-01-2024 08:30-0500 Body mass index (BMI) [Ratio] 31.1 kg/m2 Brianna Brunner MD Work Phone: [facility] 05-01-2024 08:30-0500 Body weight 95.53 kg Brianna Brunner MD Work Phone: [facility] 05-01-2024 08:30-0500 Diastolic blood pressure 76 mm[Hg] Brianna Brunner MD Work Phone: [facility] 05-01-2024 08:30-0500 Heart rate 77 /min Brianna Brunner MD Work Phone: [facility] 05-01-2024 08:30-0500 Systolic blood pressure 136 mm[Hg] Brianna Brunner MD Work Phone: [facility] 03-31-2024 08:47-0500 Blood Pressure Location Maia MADDOX [facility] 03-31-2024 08:47-0500 Body temperature 98.24 [degF] Maiamike MADDOX [facility] 03-31-2024 08:47-0500 Diastolic blood pressure 80 mm[Hg] Maiamike MADDOX [facility] 03-31-2024 08:47-0500 Heart rate 84 /min Maiamike MADDOX [facility] 03-31-2024 08:47-0500 Systolic blood pressure 126 mm[Hg] Maia MADDOX [facility] 02-05-2024 09:25-0500 Body height 177.8 cm Phylicia Gunderson DO Work Phone: [facility] 02-05-2024 09:25-0500 Body mass index (BMI) [Ratio] 29.59 kg/m2 Phylicia Gunderson DO Work Phone: [facility] 02-05-2024 09:25-0500 Body temperature 98.1 [degF] Phylicia Gunderson DO Work Phone: [facility] 02-05-2024 09:25-0500 Body weight 93.53 kg Phylicia Gunderson DO Work Phone: [facility] 12-31-2023 11:36-0400 Body temperature 97.3 [degF] Georgie Menendez MD Work Phone: [facility] 12-31-2023 11:36-0400 Diastolic blood pressure 83 mm[Hg] Georgie Menendez MD Work Phone: [facility] 12-31-2023 11:36-0400 Heart rate 77 /min Georgie Menendez MD Work Phone: [facility] 12-31-2023 11:36-0400 Respiratory rate 18 /min Georgie Menendez MD Work Phone: [facility] 12-31-2023 11:36-0400 SaO2% (BldA) [Mass fraction] 90 % Georgie Menendez MD Work Phone: [facility] 12-31-2023 11:36-0400 Systolic blood pressure 140 mm[Hg] Georgie Menendez MD Work Phone: [facility] 12-31-2023 05:00-0400 Body mass index (BMI) [Ratio] 29.23 kg/m2 Georgie Menendez MD Work Phone: [facility] 12-31-2023 05:00-0400 Body weight 92.4 kg Georgie Menendez MD Work Phone: [facility] 12-26-2023 15:17-0400 Body height 177.8 cm Georgie Menendez MD Work Phone: [facility] 12-26-2023 11:03-0400 Body height 177.8 cm Oscar Johnson MD Work Phone: [facility] 12-26-2023 11:03-0400 Body mass index (BMI) [Ratio] 29.79 kg/m2 Oscar Johnson MD Work Phone: [facility] 12-26-2023 11:03-0400 Body temperature 98.2 [degF] Oscar Johnson MD Work Phone: [facility] 12-26-2023 11:03-0400 Body weight 94.17 kg Oscar Johnson MD Work Phone: [facility] 12-25-2023 09:22-0400 Body height 172.7 cm Oscar Johnson MD Work Phone: [facility] 12-25-2023 09:22-0400 Body mass index (BMI) [Ratio] 31.32 kg/m2 Oscar Johnson MD Work Phone: [facility] 12-25-2023 09:22-0400 Body temperature 97 [degF] Oscar Johnson MD Work Phone: [facility] 12-25-2023 09:22-0400 Body weight 93.44 kg Oscar Johnson MD Work Phone: [facility] 12-25-2023 09:22-0400 Respiratory rate 19 /min Oscar Johnson MD Work Phone: [facility] 04-23-2023 08:30-0500 Body height 174.6 cm Brianna Brunner MD Work Phone: [facility] 04-23-2023 08:30-0500 Body mass index (BMI) [Ratio] 31.09 kg/m2 Brianna Brunner MD Work Phone: [facility] 04-23-2023 08:30-0500 Body weight 94.8 kg Brianna Brunner MD Work Phone: [facility] 04-23-2023 08:30-0500 Diastolic blood pressure 88 mm[Hg] Brianna Brunner MD Work Phone: [facility] 04-23-2023 08:30-0500 Heart rate 69 /min Brianna Brunner MD Work Phone: [facility] 04-23-2023 08:30-0500 Systolic blood pressure 129 mm[Hg] [facility] 03-23-2023 08:26-0500 Blood Pressure Location Maiamike MADDOX [facility] 03-23-2023 08:26-0500 Body temperature 97.16 [degF] Maia MADDOX [facility] 03-23-2023 08:26-0500 Diastolic blood pressure 78 mm[Hg] Maia MADDOX [facility] 03-23-2023 08:26-0500 Heart rate 65 /min Maia MADDOX [facility] 03-23-2023 08:26-0500 Systolic blood pressure 138 mm[Hg] Maia MADDOX [facility] 07-10-2022 08:52-0400 Blood Pressure Location Maia MADDOX [facility] 07-10-2022 08:52-0400 Diastolic blood pressure 80 mm[Hg] Maia MADDOX [facility] 07-10-2022 08:52-0400 Heart rate 76 /min Maia MADDOX [facility] 07-10-2022 08:52-0400 Respiratory rate 16 /min Maia MADDOX [facility] 07-10-2022 08:52-0400 Systolic blood pressure 137 mm[Hg] Maia MADDOX [facility] 01-27-2022 08:24-0400 Blood Pressure Location Maia MADDOX [facility] 01-27-2022 08:24-0400 Diastolic blood pressure 86 mm[Hg] Maia MADDOX [facility] 01-27-2022 08:24-0400 Heart rate 62 /min Maiamike MADDOX [facility] 01-27-2022 08:24-0400 Respiratory rate 16 /min Maiamike MADDOX [facility] 01-27-2022 08:24-0400 Systolic blood pressure 127 mm[Hg] Maia MADDOX [facility] 07-25-2021 09:05-0400 Blood Pressure Location Maia MADDOX [facility] 07-25-2021 09:05-0400 Diastolic blood pressure 85 mm[Hg] Maia MADDOX [facility] 07-25-2021 09:05-0400 Heart rate 69 /min Maia MADDOX [facility] 07-25-2021 09:05-0400 Systolic blood pressure 144 mm[Hg] Maia MADDOX [facility] Encounters Encounter Date Encounter Type Care Provider Facility Start: 03-30-2025 ambulatory Maia MADDOX Facili ty:[facility] [place] Start: 06-13-2024 ambulatory Maia MADDOX Facili ty:[facility] Start: 05-15-2024 ambulatory Maia Osheai ty:[id number] Start: 05-02-2024 ambulatory Maia MADDOX Facili ty:[facility] [place] Start: 05-01-2024 End: 05-01-2024 Patient encounter procedure Brianna Brunner MD Work Phone: [facility] Comment on above: Routine general medi marly examination at a health care facility (Primary Dx); Prostate cancer ([facility]); Essential hypertension; Mixed hyperlipidemia Start: 05-01-2024 End: 05-01-2024 Patient encounter status Brianna Brunner MD Work Phone: [facility] Work Phone: Start: 04-03-2024 End: 04-03-2024 Refill Brianna Brunner MD Work Phone: [facility] Start: 03-31-2024 End: 03-31-2024 ambulatory Maiamike MADDOX Facility:[facility] Start: 03-31-2024 End: 03-31-2024 Patient encounter procedure Maia MADDOX [facility] Start: 02-20-2024 End: 02-27-2024 Telephone encounter Saira Vieyra RN [facility] Start: 02-19-2024 End: 02-19-2024 Clinical Support [facility] Ent Audio 1 [facility] Comment on above: Tinnitus, bilateral (Primary Dx); Mixed conductive and 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; Sensorineural hearing loss (SNHL) of left ear with restricted hearing of right ear Start: 02-05-2024 End: 02-05-2024 ambulatory [facility] Start: 02-05-2024 End: 02-05-2024 Office outpatient visit 25 minutes [facility] DO Work Phone: [facility] Comment on above: Tinnitus, bilateral (Primary Dx); Mixed conductive and 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; Abnormal CT scan, sinus; Patulous eustachian tube of right ear Start: 01-15-2024 End: 01-15-2024 Orders Only [facility] Start: 01-14-2024 End: 01-14-2024 Orders Only Brianna Brunner MD Work Phone: [facility] Comment on above: Edema of right upper arm (Primary Dx) Start: 01-08-2024 End: 01-08-2024 ambulatory DARIEN [facility] Start: 01-06-2024 End: 01-06-2024 Orders Only Brianna Brunner MD Work Phone: [facility] Start: 01-05-2024 End: 01-06-2024 Refill Brianna Brunner MD Work Phone: [facility] Start: 01-03-2024 End: 01-03-2024 Telephone encounter Ashley Lucas Yamini [facility] Start: 01-02-2024 End: 01-02-2024 Office outpatient visit 15 minutes Logan Arana MD Work Phone: [facility] Comment on above: Right ear pain (Prim kecia Dx); Mixed conductive and 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; Mastoiditis of right side Start: 01-02-2024 End: 01-02-2024 ambulatory LOGAN ARANA [facility] Start: 01-01-2024 End: 01-01-2024 Telephone encounter Logan Arana MD Work Phone: [facility] Comment on above: Transition Of Care Start: 12-26-2023 End: 12-31-2023 ambulatory FADI MATA [facility] Start: 12-26-2023 End: 12-31-2023 Evaluation and management of inpatient BRIANNA BRUNNER [facility] Comment on above: Mastoiditis of right side (Primary Dx); 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; Acute swimmer's ear of right side Start: 12-26-2023 End: 12-26-2023 Office outpatient visit 25 minutes Oscar Johnson MD Work Phone: [facility] Comment on above: Right ear pain (Prim kecia Dx); Mixed conductive and 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; Acute middle ear effusion, right; Mastoiditis of right side Start: 12-26-2023 End: 12-26-2023 ambulatory [place] [facility] Start: 12-25-2023 End: 12-25-2023 Office outpatient visit 15 minutes Oscar Johnson MD Work Phone: [facility] Comment on above: Acute swimmer's ear of right side (Primary Dx); Vertigo; Right ear pain; Sensorineural hearing loss (SNHL) of left ear with restricted hearing of right ear; Mixed conductive and 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; Middle ear effusion, right Start: 12-25-2023 End: 12-25-2023 ambulatory [place] [facility] Start: 12-20-2023 End: 12-20-2023 ambulatory [facility] Start: 12-17-2023 End: 12-17-2023 ambulatory [facility] Start: 12-10-2023 End: 12-10-2023 ambulatory [facility] Start: 11-30-2023 End: 11-30-2023 ambulatory [facility] Start: 07-23-2023 End: 07-23-2023 ambulatory ALENA COLMENARES Not Available Start: 07-06-2023 End: 07-06-2023 Refill Brianna Brunner MD Work Phone: [facility] Start: 05-29-2023 Telephone encounter Brianna ferrer MD Work Phone: [facility] Start: 05-24-2023 End: 05-25-2023 ambulatory NATALYA ROGER [facility] Start: 05-22-2023 Refill Chanelle Beckett [facility] Start: 05-21-2023 End: 05-21-2023 ambulatory [facility] Start: 05-06-2023 Refill Brianna lynch MD Work Phone: [facility] Start: 04-23-2023 End: 04-23-2023 Patient encounter procedure Brianna Brunner MD Work Phone: [facility] Comment on above: Routine general medi marly examination at a health care facility (Primary Dx); Essential hypertension; Prostate cancer ([facility]); Chronic gout involving toe without tophus, unspecified cause, unspecified laterality; Mixed hyperlipidemia; Asthma in adult, mild persistent, uncomplicated Start: 04-23-2023 End: 04-23-2023 Patient encounter status Brianna Brunner MD Work Phone: [facility] Work Phone: Start: 04-23-2023 End: 04-23-2023 ambulatory [facility] Start: 04-23-2023 Encounter for genera l adult medical examination without abnormal findings [facility] Start: 04-04-2023 Refill Brianna lynch MD Work Phone: [facility] Start: 03-23-2023 End: 03-23-2023 Patient encounter procedure Maia MADDOX [facility] Start: 07-10-2022 End: 07-10-2022 Patient encounter procedure Maia MADDOX [facility] Start: 07-07-2022 End: 07-08-[address] MAIA MADDOX . Facility:[facility] Start: 01-27-2022 End: 01-27-2022 Patient encounter procedure Maia MADDOX [facility] Start: 01-18-2022 End: 01-19-[address] MAIA MADDOX . Facility:[facility] Start: 07-25-2021 End: 07-25-2021 Patient encounter procedure Maia MADDOX [facility] Start: 07-19-2021 End: 07-20-[address] MAIA MADDOX . Facility:[facility] Start: 05-31-2017 End: 06-01-2017 Ambulatory BRIANNA YOGI MYESHA [facility] Start: 05-23-2017 End: 05-24-2017 [facility] Procedures Date Procedure Procedure Detail Performing Clinician Start: 05-01-2024 Adult depression scr eening assessment Brianna Brunner MD Work Phone: Start: 12-31-2023 Blood count complete auto&auto difrntl wbc Georgie Menendez MD Work Phone: Start: 12-30-2023 Basic metabolic pane l calcium total Georgie Menendez MD Work Phone: Start: 12-29-2023 Basic metabolic pane l calcium total Trey Lundy MD Work Phone: Start: 12-28-2023 Basic metabolic pane l calcium total Trey Lundy MD Work Phone: Start: 12-27-2023 Basic metabolic pane l calcium total Trey Lundy MD Work Phone: Start: 12-26-2023 PULSE OXIMETRY, SPOT Ry jason Lundy MD Work Phone: Start: 12-26-2023 Ct orbit sella/post fossa/ear w/contrast matrl Fadi Mata DO Work Phone: Start: 12-26-2023 Ct soft tissue neck w/contrast material Fadi Mata DO Work Phone: Start: 12-26-2023 Basic metabolic pane l calcium total Yohan Tran MD Work Phone: Start: 12-26-2023 Culture bacterial bl ood aerobic w/id isolates Fadi Mata DO Work Phone: Start: 12-26-2023 Follow-up visit Follow-up [facility] Start: 12-26-2023 Adult depression scr eening assessment Oscar Johnson MD Work Phone: Start: 04-23-2023 Urnls dip stick/tabl et rgnt non-auto w/o micrscp Brianna Brunner MD Work Phone: Start: 04-23-2023 Adult depression scr eening assessment Brianna Brunner MD Work Phone: Start: 02-21-2023 Colonoscopy Brianna Sanders Work Phone: Start: 07-07-[address] SHEMAR MADDOX . Comment on above: Performed By: #### P SAD #### [facility] [address] [place] [address] Dr. Markel Mendoza Start: 04-19-2022 Adult depression scr eening assessment Brianna Brunner MD Work Phone: Start: 01-18-[address] SHEMAR MADDOX . Comment on above: Performed By: #### P SAD #### [facility] [address] [place] [address] Dr. Markel Mendoza Start: 07-19-[address] SHEMAR MADDOX . Comment on above: Performed By: #### P SAD #### [facility] [address] [place] [address] Dr. Markel Mendoza Start: 08-05-2020 Radical prostatectomy Gavin MADDOX Start: 06-17-2020 Transrectal biopsy o f prostate Maia MADDOX Appendectomy Maia MADDOX Arthroplasty of knee Maia MADDOX Colonoscopy Maia MADDOX Plan of Treatment Date Care Activity Detail Author Start: 02-21-2030 Screening for malign ant neoplasm of colon [facility] Start: 05-06-2025 End: 05-06-2025 Patient encounter procedure 05/06/2025 9:00 AM EST Office Visit [facility] [address] [place] [address] 1 [place] [address] Brianna Brunner MD [address] [place] [address], 1 [place], [place] [id number] [facility] Start: 05-01-2025 Adult BMI Screening Adult BMI Screen ing [facility] Start: 05-01-2025 Depression Screening Depression Scre ening [facility] Start: 05-01-2025 Fall Risk Screening Fall Risk Screen ing [facility] Start: 05-01-2025 Medicare Annual Wellness Visit Medicare Annual Wellness Visit [facility] Start: 05-01-2025 Tobacco Screening Tobacco Screening [facility] Start: 02-04-2025 Adult BMI Screening Adult BMI Screen ing [facility] Start: 02-04-2025 Tobacco Screening Tobacco Screening [facility] Start: 12-30-2024 Adult BMI Screening [facility] Start: 12-25-2024 Adult BMI Screening [facility] Start: 12-25-2024 Depression Screening Depression Scre ening [facility] Start: 12-25-2024 Tobacco Screening Tobacco Screening [facility] Start: 12-24-2024 Adult BMI Screening Adult [facility] Start: 12-24-2024 Tobacco Screening Tobacco Screening [facility] Start: 07-29-2024 End: 07-29-2024 Patient encounter procedure 07/29/2024 8:45 AM EDT Office Visit [facility] [address] [place] [address] Logan Arana MD [address] [facility] [address] [place] [address] [facility] Start: 05-21-2024 Adult BMI Screening Adult BMI Screen ing [facility] Start: 05-21-2024 Tobacco Screening Tobacco Screening [facility] Start: 05-01-2024 End: 05-01-2024 Patient encounter procedure 05/01/2024 8:30 AM EST Office Visit [facility] [address] [place], [place] [address] [place] [phone] Brianna Brunner MD [address] [place] [address], [address] [place], [place] [id number] [facility] Start: 04-24-2024 End: 04-24-2024 Patient encounter procedure 04/24/2024 8:30 AM EST Office Visit [facility] [address] [place] [address] [address] [place] [phone] Brianna Brunner MD [address] [place] [address], [address] [place], [place] [id number] [facility] Start: 04-23-2024 Adult BMI Screening Adult BMI Screen ing [facility] Start: 04-23-2024 Depression Screening Depression Scre ening [facility] Start: 04-23-2024 Fall Risk Screening Fall Risk Screen ing [facility] Start: 04-23-2024 Medicare Annual Wellness Visit Medicare Annual Wellness Visit [facility] Start: 04-23-2024 Tobacco Screening Tobacco Screening [facility] Start: 02-22-2024 Adult BMI Screening Adult BMI Screen ing [facility] Start: 02-22-2024 Tobacco Screening Tobacco Screening [facility] Start: 02-19-2024 End: 02-19-2024 Clinical Support 02/19/2024 3:30 PM EST Clinical Support [facility] [address] [place] [phone] [facility] Start: 01-15-2024 End: 01-15-2024 Patient encounter procedure 01/15/2024 10:30 AM EDT Appointment [facility] [address] [place] [phone] Brianna Brunner MD [address] [place] [address], [address] [place] [address] [facility] Start: 01-14-2024 End: 01-13-2025 US.doppler Upper extremity vein - right Vas venous duplex upr single right Vascular Ultrasound Routine Edema of right upper arm Expected: 01/14/2024, Expires: 01/13/2025 [facility] Work Phone: Comment on above: Expected: 01/14/2024 , Expires: 01/13/2025 Start: 01-02-2024 End: 01-02-2024 Patient encounter procedure 01/02/2024 2:30 PM EDT Office Visit [facility] [address] [place] [address], [address] [place] [phone] Logan Arana MD [address] [place] [address] [address] [place] [address] [facility] Start: 12-26-2023 End: 12-26-2023 Patient encounter procedure 12/26/2023 11:00 AM EDT Office Visit [facility] [address] [place] [address], [address] [place] [phone] Oscar Johnson MD [address] [place] [address] [address] [place] [address] [facility] Start: 11-25-2023 COVID-19 Vaccine (2022-24 season) COVID-19 Vaccine ( season) [facility] Start: 11-25-2023 COVID-19 Vaccine ( season) COVID-19 Vaccine ( season) [facility] Start: 11-25-2023 Influenza vaccination Influenza Vacc ine [facility] Start: 04-23-2023 End: 04-23-2023 Patient encounter procedure 04/23/2023 8:30 AM EST Office Visit [facility] [address] [place] [address] 1 [place] [phone] Brianna Brunner MD [address] [place] [address], [address] [place] [address] [facility] Start: 04-19-2023 Depression Screening Depression Scre ening [facility] Start: 04-19-2023 Fall Risk Screening Fall Risk Screen ing [facility] Start: 04-19-2023 Medicare Annual Wellness Visit Medicare Annual Wellness Visit [facility] Start: 03-30-2023 COVID-19 Vaccine ( season) COVID-19 Vaccine ( season) [facility] Start: 11-19-2022 DTaP,Tdap and Td Vaccines (2 - Td or Tdap) DTaP,Tdap and Td Vaccines (2 - Td or Tdap) [facility] Start: 2016 Abdominal aortic aneurysm screening Abdominal Aortic Aneurysm (AAA) Screen [facility] Start: 1969 Adult BMI Follow Up Plan Adult BMI Follow Up Plan [facility] End: 02-04-2025 Comprehensive hearing test Comprehensive hearing test Audiology Routine Tinnitus, bilateral Mixed conductive and 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 1 Occurrences starting 02/05/2024 until 02/04/2025 [facility] Work Phone: Comment on above: 1 Occurrences starti ng 02/05/2024 until 02/04/2025 End: 04-23-2024 Comprehensive metabolic 2000 panel - Serum or Plasma Comprehensive metabolic panel Lab Routine Essential hypertension 1 Occurrences starting 04/23/2023 until 04/23/2024 [facility] Work Phone: Comment on above: 1 Occurrences starti ng 04/23/2023 until 04/23/2024 Comprehensive metabo lic 2000 panel - Serum or Plasma Comprehensive metabolic panel Lab Routine Essential hypertension 04/23/2023 9:25 AM EST [facility] End: 05-01-2025 Comprehensive metabolic 2000 panel - Serum or Plasma Comprehensive metabolic panel Lab Routine Essential hypertension 1 Occurrences starting 05/01/2024 until 05/01/2025 [facility] Work Phone: Comment on above: 1 Occurrences starti ng 05/01/2024 until 05/01/2025 End: 02-04-2025 Hearing aid biaural evaluation Hearing aid biaural evaluation Audiology Routine Tinnitus, bilateral Mixed conductive and 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 1 Occurrences starting 02/05/2024 until 02/04/2025 [facility] Comment on above: 1 Occurrences starti ng 02/05/2024 until 02/04/2025 Lipid 1996 panel - Serum or Plasma Lipid profile Lab Routine Mixed hyperlipidemia 04/23/2023 9:25 AM [facility] End: 04-23-2024 Lipid panel Lipid panel Lab Routine Mixed hyperlipidemia 1 Occurrences starting 04/23/2023 until 04/23/2024 [facility] Comment on above: 1 Occurrences starti ng 04/23/2023 until 04/23/2024 End: 05-01-2025 Lipid panel Lipid panel Lab Routine Mixed hyperlipidemia 1 Occurrences starting 05/01/2024 until 05/01/2025 [facility] Comment on above: 1 Occurrences starti ng 05/01/2024 until 05/01/2025 End: 04-23-2024 Urate [Mass/volume] in Serum or Plasma Uric acid Lab Routine Chronic gout involving toe without tophus, unspecified cause, unspecified laterality 1 Occurrences starting 04/23/2023 until 04/23/2024 [facility] Comment on above: 1 Occurrences starti ng 04/23/2023 until 04/23/2024 Urate [Mass/volume] in Serum or Plasma Uric acid Lab Routine Chronic gout involving toe without tophus, unspecified cause, unspecified laterality 04/23/2023 9:25 AM EST [facility] Immunizations Immunization Date Immunization Notes Care Provider Fa cilisherin 12-31-2023 influenza, seasonal, injectable, preservative free Georgie Menendez MD Work Phone: [facility] 12-26-2023 flu vacc [id number] mos up(PF) (FLULAVAL/FLUZONE/FLUARI X TRIV) injection syringe 0.5 mL Georgie Menendez MD Work Phone: [facility] 02-02-2023 Covid-19,mrna, Lnp-s , Pf, 50mcg/0.5ml 12+ Oscar Johnson MD Work Phone: [facility] 01-03-2023 influenza virus vacc ine, unspecified formulation Maia MADDOX [facility] 01-03-2023 Influenza, High-dose , Quadrivalent Oscar Johnson MD Work Phone: [facility] 01-03-2023 RSV, bivalent, prote in subunit RSVpreF, diluent reconstituted, 0.5 mL, PF Oscar Johnson MD Work Phone: [facility] 01-03-2023 zoster vaccine recombinant Maia MADDOX [facility] 02-07-2022 influenza virus vacc ine, unspecified formulation Maia MADDOX [facility] 02-07-2022 Influenza, High-dose , Quadrivalent Oscar Johnson MD Work Phone: [facility] 02-07-2022 SARS-CoV-2 (COVID-19 ) [id number] Maia MADDOX [facility] 10-25-2021 Covid-19, Mrna, Lnp- s, Pf, 30 Mcg/0.3 Ml Dose, Lam-sucrose Oscar Johnson MD [facility] 10-25-2021 SARS-CoV-2 mRNA (rdjccrjyiby-rkrq-xwlwna e) vaccine Maiamike MADDOX [facility] 01-14-2021 influenza virus vacc ine, unspecified formulation Maia MADDOX [facility] 01-14-2021 Influenza, High-dose , Quadrivalent Brianna Brunner MD [facility] 01-14-2021 SARS-CoV-2 (COVID-19 ) mRNA BNT-162b2 vax Maiamike MADDOX [facility] 01-06-2021 influenza virus vacc ine, unspecified formulation Maiamike MADDOX [facility] 06-18-2020 SARS-CoV-2 (COVID-19 ) mRNA BNT-162b2 vax Maiamike MADDOX [facility] 05-31-2020 SARS-CoV-2 (COVID-19 ) mRNA-1273 vaccine Maiamike MADDOX [facility] 05-27-2020 SARS-CoV-2 (COVID-19 ) mRNA BNT-162b2 vax Maiamike MADDOX [facility] Comment on above: Result Comment: 2022: [id number] 03-26-2020 SARS-CoV-2 (COVID-19 ) Ad26 vaccine, recombinant Maia MADDOX [facility] Comment on above: Result Comment: Pt i s unsure which vaccine he had and also does not know the dates 01-14-2020 influenza virus vacc ine, unspecified formulation Maia MADDOX [facility] 01-14-2020 influenza, high dose seasonal, preservative-free Brianna Brunner MD Work Phone: [facility] 01-07-2020 influenza virus vacc ine, unspecified formulation Maia MADDOX [facility] 01-13-2019 influenza virus vacc ine, unspecified formulation Maia MADDOX [facility] 01-13-2019 influenza, high dose seasonal, preservative-free Brianna Brunner MD Work Phone: [facility] 06-23-2018 zoster vaccine recombinant Maia MADDOX [facility] 03-06-2018 zoster vaccine recombinant Maia MADDOX [facility] 01-08-2018 influenza virus vacc ine, unspecified formulation Maia MADDOX [facility] 01-08-2018 influenza, high dose seasonal, preservative-free Brianna Brunner MD Work Phone: [facility] 01-08-2018 pneumococcal polysaccharide vaccine, 23 valent Maiamike MADDOX [facility] 01-29-2017 influenza virus vacc ine, unspecified formulation Maia MADDOX [facility] 01-29-2017 influenza, high dose seasonal, preservative-free Brianna Brunner MD Work Phone: [facility] 03-09-2016 influenza virus vacc ine, unspecified formulation Brianna Brunner MD Work Phone: [facility] 03-09-2016 influenza, unspecifi ed formulation Maia MADDOX [facility] 03-09-2016 pneumococcal conjuga te vaccine, 13 valent Maia MADDOX [facility] 01-25-2015 influenza virus vacc ine, unspecified formulation Brianna Brunner MD Work Phone: [facility] 01-25-2015 influenza, unspecifi ed formulation Maia MADDOX [facility] 01-08-2014 influenza virus vacc ine, unspecified formulation Brianna Brunner MD Work Phone: [facility] 01-08-2014 influenza, unspecifi ed formulation Maia MADDOX [facility] 01-31-2013 zoster vaccine, live Maiamike MADDOX [facility] 11-19-2012 tetanus toxoid, redu teo diphtheria toxoid, and acellular pertussis vaccine, adsorbed Maia MADDOX [facility] Payers Date Payer Category Payer Managed Care Other (unspecified) [facility] [id number] 2016 Medicare 2016 Private Health Insurance [facility] AAR SUPPLEMENT [id number] 2016-Present [phone] [address] [place] [address] [id number] 1959 Medicare [id number] 1959 Unknown [id number] 1951 Unknown [id number] 2.16.840.1.860050.3.579.2 .593 1951 Unknown [id number] 2.16.840.1.944403.3.579.2 .593 1951 Unknown [id number] 2.16.840.1.563570.3.579.2 .593 1951 Unknown [id number] 2.16.840.1.147400.3.579.2 .1286 1951 Unknown [id number] 2.16.840.1.248269.3.579.2 .1259 1951 Unknown [id number] 2.16.840.1.305097.3.579.2 .1286 1951 Unknown [id number] 2.16.840.1.005464.3.579.2 .1286 1951 Unknown [id number] 2.16.840.1.520007.3.579.2 .1286 1951 Unknown [id number] 2.16.840.1.396390.3.579.2 .1286 1951 Unknown [id number] 2.16.840.1.199367.3.579.2 .1286 1951 Unknown [id number] 2.16.840.1.321624.3.579.2 .1286 1951 Unknown [id number] 2.16.840.1.914629.3.579.2 .1286 1951 Unknown [id number] 2.16.840.1.898219.3.579.2 .1286 1951 Unknown [id number] 2.16.840.1.566777.3.579.2 .1286 1951 Unknown [id number] 2.16.840.1.102048.3.579.2 .1286 1951 Unknown [id number] 2.16.840.1.272577.3.579.2 .1286 1951 Unknown [id number] 2.16.840.1.429195.3.579.2 .1286 1951 Unknown [id number] 2.16.840.1.642665.3.579.2 .128 1951 Unknown [id number] 2.16.840.1.091022.3.579.2 .1286 1951 Unknown [id number] 2.16.840.1.901669.3.579.2 .1286 1951 Unknown [id number] 2.16.840.1.038724.3.579.2 .1286 1951 Unknown [id number] 2.16.840.1.884329.3.579.2 .1286 1951 Unknown [id number] 2.16.840.1.674563.3.579.2 .727 1951 Unknown [id number] 2.16.840.1.903433.3.579.2 .727 1951 Unknown [id number] 2.16.840.1.981936.3.579.2 .727 1951 Unknown [id number] 2.16.840.1.957712.3.579.2 .727 Social History Date Type Detail Facility Start: 07-25-2021 End: 12-17-2023 Tobacco smoking status Ex-smoker (finding) [facility] Start: 05-03-2020 End: 12-26-2023 Sex Assigned At Male [facility] Start: 03-23-2023 End: 03-31-2024 Tobacco smoking status Never smoked tobacco (finding) [facility] Tobacco smoking status Never [facility] History of tobacco use [facility] Start: 04-19-2022 End: 12-17-2023 Tobacco use and exposure Smokeless tobacco [facility]-user [facility] Start: 02-22-2023 End: 05-01-2024 Alcohol intake Current drinker of alcohol (finding) [facility] Start: 05-03-2020 End: 02-22-2023 Alcohol intake [facility] Do you belong to any clubs or organizations such as evangelical groups, unions, fraternal or athletic groups, or school groups? Yes [facility] Are you now , , , , never or living with a partner? [facility] How often to you hav e a drink containing alcohol? 2-4 times a month [facility] How many standard dr inks containing alcohol do you have on a typical day? 1 or 2 [facility] How often do you hav e 6 or more drinks on 1 occasion? Less than monthly [facility] How hard is it for y ou to pay for the very basics like food, housing, medical care, and heating Not very hard [facility] Do you feel stress - tense, restless, nervous, or anxious, or unable to sleep at night because your mind is troubled all the time - these days [OSQ] Not at all [facility] Start: 05-03-2020 Education 15 [facility] Start: 1950 Sex Assigned At Not on file P [facility] History of tobacco use Cigarette Smoker P [facility] Has the Compliance Control, [employer], or water company threatened to shut off services in your home in past 12Mo No [facility] How often to you hav e a drink containing alcohol? 4 or more times a week [facility] Start: 10-27-2014 Sex Male (finding) [facility] Functional Status Date Assessment Result Facility 03-31-2024 Functional Status N/A [facility] 03-23-2023 Functional Status N/A [facility] 07-10-2022 Functional Status N/A [facility] 01-27-2022 Functional Status N/A [facility] Clinical Notes 07-06-2020 to 05-01-2024 Brianna Brunner MD - 05/01/2024 8:30 AM ESTTelephone Encounter - Chanelle Santamaria, [facility] - 04/03/2024 6:29 AM ESTTelephone Encounter - Chanelle Santamaria, [facility] - 04/03/2024 6:29 AM ESTPatient Instructions Note Date & Type Note Facility 05-01-2024 History of Present illness Narrative Subjective SUBJECTIVE: Patient ID: Yue Delgadillo is a 74 y.o. male who presents for a Medicare Annual Wellness exam. Comes in for wellness. He has recovered from his serious ear infection. No recurrence of his prostate cancer. He has follow-up with Urology upcoming related to a hydrocele on the left side. His shoulder issues have resolved. He has no major concerns today. The following portions of the patient's history were reviewed and updated as appropriate: allergies, current medications, past family history, past medical history, past social history, past surgical history and problem list. AWV FLOWSHEET : Lifestyle Assessment Do you smoke or use smokeless tobacco?: No If you smoke or use smokeless tobacco, are you ready to quit?: NA Are you exposed to secondhand smoke?: No On average, how many drinks of alcohol do you consume in a week?: (!) 6 - 9 Do you exercise for 30 or more minutes on average at least 3 days a week?: Often Do you have any tooth, denture, or oral problems?: (!) Yes Do you snore or has anyone told you that you snore?: (!) Yes Do you try to eat a balanced diet?: Yes Do you experience leakage of urine, also known as urinary incontinence?: Never Do you have difficulty performing any of these activities? (check all that apply): None Do you have difficulty performing any of these activities? (check all that apply): None Fall Risk Fall Risk Assessment Completed?: Yes Have you fallen in the past year?: No Are you worried about falling?: No Do you feel unsteady when standing or walking?: No Risk Stratification: Low Risk Depression Screening Little interest or pleasure in doing things: Not at all Feeling down, depressed, or hopeless: Not at all Trouble falling or staying asleep, or sleeping too much: Not at all Feeling tired or having little energy: Not at all Poor appetite or overeating: Not at all Feeling bad about yourself - or that you are a failure or have let yourself or your family down: Not at all Trouble concentrating on things, such as reading the newspaper or watching television: Not at all Moving or speaking so slowly that other people could have noticed. Or the opposite - being so fidgety or restless that you have been moving around a lot more than usual: Not at all Thoughts that you would be better off , or of hurting yourself in some way: Not at all PEG Scale What number best describes your pain on average in the past week?: 0 - No pain What number best describes how, during the past week, pain has interfered with your enjoyment of life?: 0 - Does not interfere What number best describes how, during the past week, pain has interfered with your general activity?: 0 - Does not interfere PEG Pain Total Score: 0 Safety Assessment Do you have throw rugs on the floor?: (!) Yes Do you feel safe at your home?: Yes Do you feel unsteady when walking?: No Are you having difficulty with driving?: No Do you have trouble seeing?: No What assistive device do you use? (check all that apply): None Hearing Assessment Do you strain or struggle to hear/understand conversations?: (!) Yes Do you have trouble hearing the television or radio when others do not?: (!) Yes Does your family ever voice concerns about your hearing?: No Do you wear hearing aid/s?: No Personal Health During the past 4 weeks, how would you rate your overall health?: Very Good Do you understand how to take all of your medications?: Yes How confident are you that you can control and manage most of your health problems?: Very confident In the past 12 months, how many times have you been hospitalized?: (!) One End of Life Planning Do you have a living will?: Yes Do you have a durable power of juke box servicer?: Yes Cognitive Screening Do you have trouble remembering or recalling facts or events?: No Do family members or caregivers report that you have difficulty remembering things?: No Clock Drawing Test: Normal REVIEW OF SYSTEMS: Review of Systems Constitutional: Negative for activity change and unexpected weight change. HENT: Negative for trouble swallowing and voice change. Eyes: Negative for visual disturbance. Respiratory: Negative for cough and shortness of breath. 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 Gastrointestinal: Negative for abdominal pain and blood in stool. Genitourinary: Positive for scrotal swelling. Musculoskeletal: Negative for arthralgias and myalgias. Neurological: Negative for dizziness, light-headedness and headaches. Objective PHYSICAL EXAMINATION: Vitals: 05/01/24 0830 BP: 136/76 Pulse: 77 Weight: 95.5 kg (210 lb 9.6 oz) Height: 175.3 cm (5' 9 ) Physical Exam Constitutional: Appearance: Normal appearance. Comments: Blood pressure acceptable HENT: Left Ear: Tympanic membrane and ear canal normal. Ears: Comments: Tube in place in the right ear Mouth/Throat: Pharynx: No oropharyngeal exudate or posterior oropharyngeal erythema. Eyes: General: No scleral icterus. Pupils: Pupils are equal, round, and reactive to light. Neck: Vascular: No carotid bruit. Comments: No thyroid enlargement or neck mass Cardiovascular: Rate and Rhythm: Normal rate and regular rhythm. Heart sounds: No murmur heard. Pulmonary: Effort: Pulmonary effort is normal. Breath sounds: Normal breath sounds. Abdominal: General: There is no distension. Palpations: Abdomen is soft. Tenderness: There is no abdominal tenderness. Musculoskeletal: General: No deformity. Right lower leg: No edema. Left lower leg: No edema. Neurological: General: No focal deficit present. Mental Status: He is alert. Assessment/Plan ASSESSMENT/PLAN Medication reviewed. Labs ordered. Specialty follow-up reviewed. Up-to-date on colon cancer screening until 2029. Routine follow-up annually for wellness. Diagnoses and all orders for this visit: Routine general medical examination at a health care facility Prostate cancer ([facility]) Essential hypertension - Comprehensive metabolic panel; Future Mixed hyperlipidemia - Lipid panel; Future documented in this encounter [facility] 04-14-2024 Note Patient Education Urology Hydrocelectomy, Adult, Care After The following information offers guidance on how to care for yourself after your procedure. Your health care provider may also give you more specific instructions. If you have problems or questions, contact your health care provider. What can I expect after the procedure? After your procedure, it is common to have: ??? Mild discomfort and swelling in the pouch that holds your testicles (scrotum). ??? Bruising of the scrotum. Follow these instructions at home: Medicines ??? Take blak-fav-hqlbsac and prescription medicines only as told by your health care provider. ??? Ask your health care provider if the medicine prescribed to you: ? Requires you to avoid driving or using machinery. ? Can cause constipation. You may need to take these actions to prevent or treat constipation: ? Drink enough fluid to keep your urine pale yellow. ? Take egkf-xnl-zymragq or prescription medicines. ? Eat foods that are high in fiber, such as beans, whole grains, and fresh fruits and vegetables. ? Limit foods that are high in fat and processed sugars, such as fried or sweet foods. Bathing ??? Do not take baths, swim, or use a hot tub until your health care provider approves. Ask your health care provider if you may take showers. You may only be allowed to take sponge baths. ??? If you were told to wear an athletic support strap (scrotal support), keep it dry. Take it off when you shower or bathe. Incision care ??? Follow instructions from your health care provider about how to take care of your incision. Make sure you: ? Wash your hands with soap and water for at least 20 seconds before and after you change your bandage (dressing). If soap and water are not available, use hand rubber tubing splicer. ? Change your dressing as told by your health care provider. ? Leave stitches (sutures), skin glue, or adhesive strips in place. These skin closures may need to stay in place for 2 weeks or longer. If adhesive strip edges start to loosen and curl up, you may trim the loose edges. Do not remove adhesive strips completely unless your health care provider tells you to do that. ??? Check your incision and scrotum every day for signs of infection. Check for: ? More redness, swelling, or pain. ? Fluid or blood. ? Warmth. ? Pus or a bad smell. Managing pain and swelling If directed, put ice on the affected area. To do this: ??? Put ice in a plastic bag. ??? Place a towel between your skin and the bag. ??? Leave the ice on for 20 minutes, 2?3 times per day. ??? Remove the ice if your skin turns bright red. This is very important. If you cannot feel pain, heat, or cold, you have a greater risk of damage to the area. Activity ??? Do not lift anything that is heavier than 10 lb (4.5 kg) until your health care provider says that it is safe. ??? If you were given a sedative during the procedure, it can affect you for several hours. Do not drive or operate machinery until your health care provider says that it is safe. ??? Ask your health care provider when it is safe to drive. ??? Return to your normal activities as told by your health care provider. Ask your health care provider what activities are safe for you. General instructions ??? Do not use any products that contain nicotine or tobacco. These products include cigarettes, chewing tobacco, and vaping devices, such as e-cigarettes. These can delay healing after surgery. If you need help quitting, ask your health care provider. ??? If you were given a scrotal support, wear it as told by your health care provider. ??? Keep all follow-up visits. This is important. If you had a drain put in during the procedure, you will need to have it removed at a follow-up visit. Contact a health care provider if: ??? Your pain is not controlled with medicine. ??? You have more redness, swelling, or pain around your scrotum. ??? You have fluid or blood coming from your incision. ??? Your incision feels warm to the touch. ??? You have pus or a bad smell coming from your incision. ??? You have a fever. Get help right away if: ??? You develop shaking, chills, and a fever that is higher than 101.8?F (38.8?C). ??? You have redness or swelling that starts at your scrotum and spreads outward to your whole groin. ??? You develop swelling in your legs. ??? You have difficulty breathing. These symptoms may be an emergency. Get help right away. Call 911. ??? Do not wait to see if the symptoms will go away. ??? Do not drive yourself to the hospital. Summary ??? After a hydrocelectomy, it is common to have mild discomfort, swelling, and bruising. ??? Do not take baths, swim, or use a hot tub until your health care provider approves. Ask your health care provider if you may take showers. ??? If directed, put ice on the affected area to help with pain and swelling. ??? Do not (more content not included)... [facility] 04-03-2024 Miscellaneous Notes Refill request documented in this encounter [facility] 04-03-2024 Telephone encounter Note Refill request [facility] 03-31-2024 Hospital Discharge instructions Patient Education 03/31/2024 09:41:02 Hydrocelectomy, Adult Hydrocelectomy, Adult A hydrocelectomy is a surgical procedure to remove a collection of fluid (hydrocele) from the scrotum. The scrotum is the pouch that holds the testicles. You may need to have this procedure if a hydrocele is causing painful swelling in your scrotum. Tell a health care provider about: Any allergies you have. All medicines you are taking, including vitamins, herbs, eye drops, creams, and dyxj-evk-tvjrnpj medicines. Any problems you or family members have had with anesthetic medicines. Any bleeding problems you have. Any surgeries you have had. Any medical conditions you have. What are the risks? Generally, this is a safe procedure. However, problems may occur, including: Bleeding into the scrotum (scrotal hematoma). Damage to nearby structures or organs, including to the testicle or the tube that carries sperm out of the testicle (vas deferens). Infection. Allergic reactions to medicines. What happens before the procedure? When to stop eating and drinking Follow instructions from your health care provider about what you may eat and drink before your procedure. These may include: 8 hours before your procedure ?Stop eating most foods. Do not eat meat, fried foods, or fatty foods. ?Eat only light foods, such as toast or crackers. ?All liquids are okay except energy drinks and alcohol. 6 hours before your procedure ?Stop eating. ?Drink only clear liquids, such as water, clear fruit juice, black coffee, plain tea, and sports drinks. ?Do not drink energy drinks or alcohol. 2 hours before your procedure ?Stop drinking all liquids. ?You may be allowed to take medicines with small sips of water. If you do not follow your health care provider's instructions, your procedure may be delayed or canceled. Medicines Ask your health care provider about: Changing or stopping your regular medicines. This is especially important if you are taking diabetes medicines or blood thinners. Taking medicines such as aspirin and ibuprofen. These medicines can thin your blood. Do not take these medicines unless your health care provider tells you to take them. Taking fccm-aef-gucgzys medicines, vitamins, herbs, and supplements. Surgery safety Ask your health care provider: How your surgery site will be marked. What steps will be taken to help prevent infection. These steps may include: ?Removing hair at the surgery site. ?Washing skin with a germ-killing soap. ?Taking antibiotic medicine. General instructions Do not use any products that contain nicotine or tobacco for at least 4 weeks before the procedure. These products include cigarettes, chewing tobacco, and vaping devices, such as e-cigarettes. If you need help quitting, ask your health care provider. If you will be going home right after the procedure, plan to have a responsible adult: ?Take you home from the hospital or clinic. You will not be allowed to drive. ? Care for you for the time you are told. What happens during the procedure? An IV will be inserted into one of your veins. You will be given one or both of the following: ?A medicine to make you relax (sedative). ?A medicine to make you fall asleep (general anesthetic). A small incision will be made through the skin of your scrotum. Your testicle and the hydrocele will be located, and the hydrocele sac will be opened with an incision. The fluid will be drained from the hydrocele. Part of the hydrocele sac may be removed. The hydrocele will be closed with stitches that dissolve (absorbable sutures). This prevents fluid from building up again. If your hydrocele is large, you may have a thin, rubber drain placed to allow fluid to drain after the procedure. The incision in your scrotum will be closed with absorbable sutures, skin glue, or adhesive strips. A bandage (dressing) will be placed over the incision. The dressing may be held in place with an athletic support strap (scrotal support). The procedure may vary among health care providers and hospitals. What happens after the procedure? Your blood pressure, heart rate, breathing rate, and blood oxygen level will be monitored until you leave the hospital or clinic. You will be given pain medicine as needed. Your IV will be removed, and your insertion site will be checked for bleeding. You may need to wear a scrotal support. This holds the dressing in place and supports your scrotum. If you were given a sedative during the procedure, it can affect you for several hours. Do not drive or operate machinery until your health care provider says that it is safe. Summary A hydrocelectomy is a surgical procedure to remove a collection of fluid from the scrotum. You may need to have this procedure if a hydrocele is causing painful swelling in your scrotum. During the procedure, the hydrocele will be drained and then closed with stitches that dissolve (absorbable sutures). This prevents fluid from building up again. If your hydrocele is large, you may have a thin, rubber drain placed to allow fluid to drain after the procedure. You may need to wear a scrotal support after your procedure. This holds the dressing in place and supports your scrotum. This information is not intended to replace advice given to you by your health care provider. Make sure you discuss any questions you have with your health care provider. Document Revised: 10/27/2021 Document Reviewed: 10/27/2021 [employer] Patient Education 2023 [employer]. 03/31/2024 09:41:01 Hydrocele, Adult Hydrocele, Adult A hydrocele is a collection of fluid in the loose pouch of skin that holds the testicles (scrotum). It can occur in one or both testicles. This may happen because: The amount of fluid produced in the scrotum is not absorbed by the rest of the body. Fluid from the abdomen fills the scrotum. Normally, the testicles develop in the abdomen and then drop into the scrotum before . The tube that the testicles travel through usually closes after the testicles drop. If the tube does not close, fluid from the abdomen can fill the scrotum. This is not very common in adults. What are the causes? A hydrocele may be caused by: An injury to the scrotum. An infection. Decreased blood flow to the scrotum. Twisting of a testicle (testicular torsion). A defect. A tumor or cancer of the testicle. Sometimes, the cause is not known. What are the signs or symptoms? A hydrocele feels like a water-filled balloon. It may also feel heavy. Other symptoms include: Swelling of the scrotum. The swelling may decrease when you lie down. You may also notice more swelling at night than in the morning. This is called a communicating hydrocele, in which the fluid in the scrotum goes back into the abdominal cavity when the position of the scrotum changes. Swelling of the groin. Mild discomfort in the scrotum. Pain. This can develop if the hydrocele was caused by infection or twisting. The larger the hydrocele, the more likely you are to have pain. Swelling may also cause pain. How is this diagnosed? This condition may be diagnosed based on a physical exam and your medical history. You may also have tests, including: Imaging tests, such as an ultrasound. A transillumination test. This test takes place in a dark room where a light is placed on the skin of the scrotum. Clear liquid will not impede the light and the scrotum will be illuminated. This helps a health care provider distinguish a hydrocele from a tumor. Blood or urine tests. How is this treated? Most hydroceles go away on their own. If you have no discomfort or pain, your health care provider may suggest close monitoring of your condition until the condition goes away or symptoms develop. This is called watch and wait or watchful waiting. If treatment is needed, it may include: Treating an underlying condition. This may include taking an antibiotic medicine to treat an infection. Having surgery to stop fluid from collecting in the scrotum. Having surgery to drain the fluid. Surgery may include: ?Hydrocelectomy. For this procedure, an incision is made in the scrotum to remove the fluid. ?Needle aspiration. A needle is used to drain fluid. However, the fluid buildup will come back quickly and may lead to an infection of the scrotum. This is rarely done. Follow these instructions at home: Medicines Take wibt-kyu-zdhexzu and prescription medicines only as told by your health care provider. If you were prescribed an antibiotic medicine, take it as told by your health care provider. Do not stop taking the antibiotic even if you start to feel better. General instructions Watch the hydrocele for any changes. Keep all follow-up visits. This is important. Contact a health care provider if: You notice any changes in the hydrocele. The swelling in your scrotum or groin gets worse. The hydrocele becomes red, firm, painful, or tender to the touch. You have a fever. Get help right away if you: Develop a lot of pain or your pain becomes worse. Have chills. Have a high fever. Summary A hydrocele is a collection of fluid in the loose pouch of skin that holds the testicles (scrotum). A hydrocele can cause swelling, discomfort, and pain. In adults, the cause of a hydrocele may not be known. However, it is sometimes caused by an infection or the twisting of a testicle. Hydroceles often go away on their own. If a hydrocele causes pain, treating the underlying cause may be needed to ease the pain. This information is not intended to replace advice given to you by your health care provider. Make sure you discuss any questions you have with your health care provider. Document Revised: 10/27/2021 Document Reviewed: 10/27/2021 [employer] Patient Education 2023 [employer]. 03/31/2024 09:23:27 Kegel Exercises Kegel Exercises Kegel exercises can help strengthen your pelvic floor muscles. The pelvic floor is a group of muscles that support your rectum, small intestine, and bladder. In females, pelvic floor muscles also help support the uterus. These muscles help you control the flow of urine and stool (feces). Kegel exercises are painless and simple. They do not require any equipment. Your provider may suggest Kegel exercises to: Improve bladder and bowel control. Improve sexual response. Improve weak pelvic floor muscles after surgery to remove the uterus (hysterectomy) or after , in females. Improve weak pelvic floor muscles after prostate gland removal or surgery, in males. Kegel exercises involve squeezing your pelvic floor muscles. These are the same muscles you squeeze when you try to stop the flow of urine or keep from passing gas. The exercises can be done while sitting, standing, or lying down, but it is best to vary your position. Ask your health care provider which exercises are safe for you. Do exercises exactly as told by your health care provider and adjust them as directed. Do not begin these exercises until told by your health care provider. Exercises How to do Kegel exercises: 1.Squeeze your pelvic floor muscles tight. You should feel a tight lift in your rectal area. If you are a female, you should also feel a tightness in your vaginal area. Keep your stomach, buttocks, and legs relaxed. 2.Hold the muscles tight for up to 10 seconds. 3.Breathe normally. 4.Relax your muscles for up to 10 seconds. 5.Repeat as told by your health care provider. Repeat this exercise daily as told by your health care provider. Continue to do this exercise for at least 4 6 weeks, or for as long as told by your health care provider. You may be referred to a physical therapist who can help you learn more about how to do Kegel exercises. Depending on your condition, your health care provider may recommend: Varying how long you squeeze your muscles. Doing several sets of exercises every day. Doing exercises for several weeks. Making Kegel exercises a part of your regular exercise routine. This information is not intended to replace advice given to you by your health care provider. Make sure you discuss any questions you have with your health care provider. Document Revised: 07/21/2021 Document Reviewed: 07/21/2021 [employer] Patient Education 2023 [employer]. Follow Up Care 03/23/2023 09:25:56 With:VARSHA MCPHERSON, Maia Marie, URL Address: [facility] [address], [place] [address]- When: Unknown [facility] Analisa 03-31-2024 Note Patient Education Obstetrics and Gynecology Kegel Exercises Kegel exercises can help strengthen your pelvic floor muscles. The pelvic floor is a group of muscles that support your rectum, small intestine, and bladder. In females, pelvic floor muscles also help support the uterus. These muscles help you control the flow of urine and stool (feces). Kegel exercises are painless and simple. They do not require any equipment. Your provider may suggest Kegel exercises to: ??? Improve bladder and bowel control. ??? Improve sexual response. ??? Improve weak pelvic floor muscles after surgery to remove the uterus (hysterectomy) or after , in females. ??? Improve weak pelvic floor muscles after prostate gland removal or surgery, in males. Kegel exercises involve squeezing your pelvic floor muscles. These are the same muscles you squeeze when you try to stop the flow of urine or keep from passing gas. The exercises can be done while sitting, standing, or lying down, but it is best to vary your position. Ask your health care provider which exercises are safe for you. Do exercises exactly as told by your health care provider and adjust them as directed. Do not begin these exercises until told by your health care provider. Exercises How to do Kegel exercises: 1. Squeeze your pelvic floor muscles tight. You should feel a tight lift in your rectal area. If you are a female, you should also feel a tightness in your vaginal area. Keep your stomach, buttocks, and legs relaxed. 2. Hold the muscles tight for up to 10 seconds. 3. Breathe normally. 4. Relax your muscles for up to 10 seconds. 5. Repeat as told by your health care provider. Repeat this exercise daily as told by your health care provider. Continue to do this exercise for at least 4?6 weeks, or for as long as told by your health care provider. You may be referred to a physical therapist who can help you learn more about how to do Kegel exercises. Depending on your condition, your health care provider may recommend: ??? Varying how long you squeeze your muscles. ??? Doing several sets of exercises every day. ??? Doing exercises for several weeks. ??? Making Kegel exercises a part of your regular exercise routine. This information is not intended to replace advice given to you by your health care provider. Make sure you discuss any questions you have with your health care provider. Document Revised: 07/21/2021 Document Reviewed: 07/21/2021 [employer] Patient Education ? 2023 [employer]. Urology Hydrocelectomy, Adult A hydrocelectomy is a surgical procedure to remove a collection of fluid (hydrocele) from the scrotum. The scrotum is the pouch that holds the testicles. You may need to have this procedure if a hydrocele is causing painful swelling in your scrotum. Tell a health care provider about: ??? Any allergies you have. ??? All medicines you are taking, including vitamins, herbs, eye drops, creams, and udrm-tfq-qhzuvsw medicines. ??? Any problems you or family members have had with anesthetic medicines. ??? Any bleeding problems you have. ??? Any surgeries you have had. ??? Any medical conditions you have. What are the risks? Generally, this is a safe procedure. However, problems may occur, including: ??? Bleeding into the scrotum (scrotal hematoma). ??? Damage to nearby structures or organs, including to the testicle or the tube that carries sperm out of the testicle (vas deferens). ??? Infection. ??? Allergic reactions to medicines. What happens before the procedure? When to stop eating and drinking Follow instructions from your health care provider about what you may eat and drink before your procedure. These may include: ??? 8 hours before your procedure ? Stop eating most foods. Do not eat meat, fried foods, or fatty foods. ? Eat only light foods, such as toast or crackers. ? All liquids are okay except energy drinks and alcohol. ??? 6 hours before your procedure ? Stop eating. ? Drink only clear liquids, such as water, clear fruit juice, black coffee, plain tea, and sports drinks. ? Do not drink energy drinks or alcohol. ??? 2 hours before your procedure ? Stop drinking all liquids. ? You may be allowed to take medicines with small sips of water. If you do not follow your health care provider's instructions, your procedure may be delayed or canceled. Medicines Ask your health care provider about: ??? Changing or stopping your regular medicines. This is especially important if you are taking diabetes medicines or blood thinners. ??? Taking medicines such as aspirin and ibuprofen. These medicines can thin your blood. Do not take these medicines unless your health care provider tells you to take them. ??? Taking khms-mjb-xbbasff medicines, vitamins, herbs, and supplements. Surgery safety Ask your health care provider: ??? How your surgery site will be (more content not included)... [facility] 02-20-2024 Miscellaneous Notes Spoke with and got patient scheduled for his Right Ear Tube check Sunday July 30, 2023 at 0845 w/Dr. Arana. [facility] Telephone encounter Note Spoke with and got patient scheduled for his Right Ear Tube check Sunday July 30, 2023 at 0845 w/Dr. Arana. [facility] 02-19-2024 History of Present illness Narrative AUDIOLOGIC EVALUATION Reason for visit: CC: Patient here for recheck of hearing. He has a history of ear infection in his right ear and ultimately had a PET placed on 12/26/23. He reports that he still has some fullness, but denies current otalgia or otorrhea. He has a history of tinnitus- this is in both ears, with a different sound in each ear. He reports a long-standing history of vertigo. Previous testing, performed 12/17/23, revealed a moderate through 2000 Hz dropping to severe MHL in the right ear and normal hearing through 2000 Hz dropping to a moderate to severe SNHL in the left. HISTORY: Changes in hearing: improved in the right ear Tinnitus: Bilateral, constant Dizziness: Yes Aural Fullness: Right ear Otalgia: No Otorrhea: No Other significant history: right PET RESULTS: Otoscopic Evaluation: Right Ear: PE tube visualized Left Ear: Unremarkable Immittance Measures: Right Ear: Unable to maintain hermetic seal for measurement Left Ear: Type A Pure Tone Audiometry: Right Ear: Mild to slight through 2000 Hz dropping to a severe to profound MHL Left Ear: Essentially normal through 2000 Hz dropping to severe SNHL In comparison to previous audio completed on 12/17/23, a significant improvement of hearing sensitivity was noted on the right. Reliability: good Speech Audiometry: SRT/BEHAVIORAL HEALTH CONSULTANT in good agreement WRS: Right Ear: Excellent (100%) Left Ear: Excellent (100%) RECOMMENDATIONS: Follow up with Dr. Phylicia Gunderson Retest as medically necessary Eliseo Ford, [facility] Front Desk Person documented in this encounter [facility] 02-05-2024 History of Present illness Narrative Images from the original note were not included. [facility] E[facility]SE [facility]RO[facility] [facility] [address] [address] [place] [id number] SUBJECTIVE: Patient ID ([id number]): Yue Delgadillo is a 73 y.o. male presents today for Chief Complaint Patient presents with Hospital Follow-up HPI: Yue is seen in follow up today for hospital follow up. Patient was last seen on 01/02/[address] Logan Arana MD. Patient reports that he has been experiencing ear ringing bilaterally, but the ringing sounds differently in each ear. He states that his hearing feels like he is in a tunnel. He has been wearing ear plugs when he showers. He follows with Dr. Arana recently after discharge from hospital. While in the hospital, the patient's CT neck showed, Fluid within the right mastoids and filling the middle ears; clinical correlation for acute right-sided otitis media is recommended. Mucosal thickening in the left maxillary sinus with areas of high attenuation compatible with inspissated secretions and/or fungal infection. He denies any nasal symptoms. Patient denies any fever, facial pain or pressure, or discolored nasal drainage. He states that even after his visit with Dr. Arana, he has kind of a hollow or tinny type sound in the right ear. He was significantly ill with the otitis externa and has lost 6-7 lb since hospitalization. HISTORY: Past Medical History: Diagnosis Date Arthritis Asthma GERD (gastroesophageal reflux disease) Gout HL (hearing loss) Hyperlipidemia Hypertension Mastoiditis of right side 12/26/2023 Pneumonia Prostate cancer ([facility]) Visual impairment Past Surgical History: Procedure Laterality Date APPENDECTOMY CARDIAC CATHETERIZATION COLONOSCOPY COLONOSCOPY DIAGNOSTIC / SCREENING N/A 02/21/2023 Performed by Buddy Ureña MD at [facility] JOINT REPLACEMENT 01/02/2020 PROSTATE BIOPSY PROSTATECTOMY REPLACEMENT TOTAL KNEE Right TOOTH EXTRACTION VASECTOMY 1988 Family History Problem Relation Age of Onset [place]'s disease Mother Asthma Mother Heart disease Father Social History Socioeconomic History Marital status: Spouse name: Not on file Number of children: Not on file Years of education: Not on file Highest education level: Associate degree: occupational, technical, or vocational program Occupational History Not on file Tobacco Use Smoking status: Former Current packs/day: 0.50 Types: Cigarettes Smokeless tobacco: Never Vaping Use Vaping status: Never Used Substance and Sexual Activity Alcohol use: Yes Alcohol/week: 6.0 standard drinks of alcohol Types: 6 Cans of beer per week Drug use: No Sexual activity: Not Currently Partners: Female Other Topics Concern Not on file Social History Narrative Not on file Social Drivers of Health Financial Resource Strain: Low Risk (05/03/2020) Overall Financial Resource Strain (CARDIA) Difficulty of Paying Living Expenses: Not very hard Food Insecurity: No Food Insecurity (12/26/2023) Hunger Screening Food Insecurity - Worry: Never True Food Insecurity - Inability: Never True Transportation Needs: No Transportation Needs (12/26/2023) PRAPARE - Transportation Lack of Transportation (Medical): No Lack of Transportation (Non-Medical): No Physical Activity: Sufficiently Active (05/03/2020) Exercise Vital Sign Days of Exercise per Week: 6 days Minutes of Exercise per Session: 40 min Stress: No Stress Concern Present (05/03/2020) [place] [employer] - Occupational Stress Questionnaire Feeling of Stress : Not at all Social Connections: Socially Integrated (05/03/2020) Social Connection and Isolation Panel [NHANES] Frequency of Communication with Friends and Family: More than three times a week Frequency of Social Gatherings with Friends and Family: Twice a week Attends [employer] Services: 1 to 4 times per year Active Member of Clubs or Organizations: Yes Attends Club or Organization Meetings: 1 to 4 times per year Marital Status: Interpersonal Safety: Not At Risk (12/26/2023) Humiliation, Afraid, Rape, and Kick questionnaire Fear of Current or Ex-Partner: No Emotionally Abused: No Physically Abused: No Sexually Abused: No Housing Instability: Low Risk (12/26/2023) Housing Instability Housing Instability: No Allergies Allergen Reactions Ciprofloxacin Hives Codeine Unsure of reaction Erythromycin Hives And anxiousness Lanolin Hives Lisinopril Swelling Meloxicam GI Disturbance Pork Derived (Porcine) Hives If he eats 2 days in a row Sulfa (Sulfonamide Antibiotics) Hives Current Outpatient Medications Medication Sig Dispense Refill albuterol (PROVENTIL HFA;VENTOLIN HFA) 90 mcg/actuation inhaler Inhale 2 puffs every 6 (six) hours as needed for wheezing. 18 g 0 allopurinoL (ZYLOPRIM) 300 mg tablet TAKE ONE TABLET BY MOUTH EVERY MORNING 90 tablet 3 amLODIPine (NORVASC) 10 mg tablet take 1 tablet by mouth every morning 90 tablet 2 apixaban (ELIQUIS DVT-PE TREAT 30D START) 5 mg (74 tabs) tablets,dose pack tablet Take 2 tablets by mouth twice daily for 7 days, then take 1 tablet twice daily 74 tablet 0 aspirin 81 mg Take 1 tablet (81 mg total) by mouth in the morning. fluticasone propionate (FLOVENT HFA) 110 mcg/actuation inhaler Inhale 2 puffs once daily. Patient only takes when sick 12 g 3 atenmehv-wfhj-WO-calcium &mins (THERAGRAN-M) 9 mg iron-400 mcg tablet Take 1 tablet by mouth in the morning. omega-3 fatty acids-fish oil 300-1,000 mg capsule Take 1,200 mg by mouth daily. omeprazole (PriLOSEC) 20 mg capsule take 2 capsules by mouth every morning 180 capsule 2 simvastatin (ZOCOR) 20 mg tablet TAKE ONE TABLET BY MOUTH EVERY MORNING 90 tablet 3 No current facility-administered medications for this visit. REVIEW OF SYSTEMS: Review of Systems Constitutional: Negative for chills and fever. HENT: Positive for tinnitus. Negative for ear discharge and ear pain. Eyes: Negative for redness. Respiratory: Negative for cough and shortness of breath. Gastrointestinal: Negative for vomiting. Endocrine: Negative for heat intolerance. Musculoskeletal: Negative for gait problem. Allergic/Immunologic: Negative for environmental allergies. Neurological: Positive for dizziness and headaches. Hematological: Bruises/bleeds easily. Data Reviewed: CT neck soft tissue with contrast Order: [id number] Status: Final result Visible to patient: Yes (seen) Next appt: 05/01/2024 at 08:30 AM in Internal Medicine (Brianna Brunner MD) 0 Result Notes Details Reading Physician Reading Date Result Priority Cyrus Singh MD [phone] 12/26/2023 STAT Narrative & Impression EXAM: CT NECK WITH CONTRAST CLINICAL INFORMATION: Soft tissue infection suspected, neck, xray done. TECHNIQUE: CT neck was performed utilizing 5 mm axial reconstructions following the uneventful administration of nonionic intravenous contrast. Coronal and sagittal reformatted images were obtained and reviewed. Automated exposure control was utilized. COMPARISON: None. FINDINGS: The mucosal and submucosal spaces are grossly symmetric and unremarkable. There are calcified tonsilloliths. There is no evidence for a mass in the neck. There are scattered non-enlarged lymph nodes on both sides of the neck. The thyroid gland is unremarkable. The parotid and submandibular glands are symmetric and unremarkable. The carotid arteries and jugular veins are unremarkable. The limited visualized lung apices are unremarkable. There is polypoid mucosal thickening in the left maxillary sinus with areas of high attenuation compatible with fungal infection or inspissated secretions. There is fluid within the right mastoid air cells and middle ear; clinical correlation for acute right-sided otitis media is recommended. The left mastoid air cells are clear and well aerated. IMPRESSION: 1. No acute abnormalities in the neck. 2. Fluid within the right mastoids and filling the middle ears; clinical correlation for acute right-sided otitis media is recommended. 3. Mucosal thickening in the left maxillary sinus with areas of high attenuation compatible with inspissated secretions and/or fungal infection. All CT scans at this facility use dose modulation, iterative reconstruction, and/or weight based dosing when appropriate to reduce radiation dose to as low as reasonably achievable. Finalized by Cyrus Singh MD on 12/26/2023 4:48 PM Exam Ended: 12/26/23 16:31 EDT Last Resulted: 12/26/23 16:48 EDT PHYSICAL EXAMINATION: Temp 36.7 C (98.1 F) Ht 177.8 cm (5' 10 ) Wt 93.5 kg (206 lb 3.2 oz) BMI 29.59 kg/m Constitutional: Healthy, alert, cooperative, and in no distress and normal ablility to communicate . Voice normal quality. Head/Face: Normocephalic, without obvious abnormality, salivary glands normal, atraumatic, sinuses nontender, and facial nerve intact Eyes: No gross abnormalities., EOMI, no nystagmus, and no lid ptosis Ear: RIGHT: hearing normal, external ear normal, canal normal, TM normal without fluid or infection, and Ear tube in, open and dry with some old blood LEFT: hearing normal, external ear normal, canal normal, and TM normal without fluid or infection Nose: External nose appears normal, septum midline, normal mucosa, no nasal polyps or masses, and turbinate hypertrophy Respiration: No stridor, Normal respiratory effort. Neurologic: Grossly normal Alert Oriented X 3 Affect normal Cranial nerves 2 -12 grossly intact Procedure Note: NASOPHARYNGOSCOPY Pre-operative Diagnosis: Abnormal CT maxillary sinus Post-operative Diagnosis: same Surgeon: Phylicia Gunderson DO Anesthesia: Oxymetazoline and 4% Lidocaine Endoscopy Type: Flexible Nasopharyngoscopy Procedure Details: Procedure was described in detail. Indications, risks, benefits, and possible complications were discussed and verbal informed consent was obtained. The patient was placed in the sitting position. After topical anesthesia and decongestant applied, a flexible laryngoscope was passed through the nose. The nasal cavities, nasopharynx, were all examined. The following findings were noted: Findings: Right: No pus, no polyps, nasopharynx and eustachian tube are normal, septal swell body Left: no pus, no polyps, nasopharynx and eustachian tube are normal, spurring to left side, mild polypoid tissue lateral to the middle turbinate Condition: successful and and tolerated well.. Complications: None ASSESSMENT/PLAN: Yue was seen today for hospital follow-up. Diagnoses and all orders for this visit: Tinnitus, bilateral - Comprehensive hearing test; Future - Hearing aid biaural evaluation; Future Mixed conductive and 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 - Comprehensive hearing test; Future - Hearing aid biaural evaluation; Future Abnormal CT scan, sinus Patulous eustachian tube of right ear Comments: Suspect Plan: On exam today, I did not appreciate any physical abnormalities within the ears. The right PE tube was in, open and dry with some old blood present. We discussed that he could benefit from an updated hearing test and a hearing aid evaluation. I explained that the ringing and tunnel hearing sensation could be from patulous Eustachian tube which we sometimes see after a significant illness and or weight loss. This issue is typically self-limiting. I recommended that he wait a few weeks to obtain the hearing test, as he did lose weight in the hospital which could be affecting his ear symptoms. Waiting a few weeks will allow his body to return to baseline prior to the audiogram. He can consult with audiology about hearing aids at that time. The patient underwent a nasopharyngoscopy during the visit today. The results were reviewed and discussed with the patient. I did not appreciate any abnormal drainage from the sinuses today. As he is asymptomatic at this time, there is no further intervention necessary today. If he becomes symptomatic, then he should call the office and schedule an appointment. I will see him back as needed. Scribe Statement: Scribed for and in the presence of Phylicia Gunderson DO by Gris Maradiaga (scribe). Gris Maradiaga 02/05/2024 7:39 AM Provider Statement: I Phylicia Gunderson DO personally performed the services described in the documentation as described by the above named scribe in my presence. It is both accurate and complete at the time of final signature. Dr. Phylicia Gunderson 02/05/2024 4:57 PM Counseling: The following elements of medical decision making were considered during this visit: Reviewed/ordered labs, Obtained/reviewed historical records , and Independent interpretation of test performed by another physician or qualified healthcare provider not separately reported (tympanogram, audiogram, imaging). The patient was counseled regarding prognosis, risks and benefits of treatment options, impressions, importance of compliance with treatment and risk factor reductions. The patient verbalized understanding and agreement to the plan. Please note that parts of this chart were generated using voice recognition [employer] dictation software. Although every effort was made to ensure the accuracy of this automated industrial rehabilitation consultant, some errors in industrial rehabilitation consultant may have occurred. Kayli OconnellROXIE 02/05/24 0928 documented [facility] Instructions Phylicia Gunderson DO - 02/05/2024 9:15 AM EST Plan: On exam today, I did not appreciate any physical abnormalities within the ears. The right PE tube was in, open and dry with some old blood present. We discussed that he could benefit from an updated hearing test and a hearing aid evaluation. I explained that the ringing and tunnel hearing sensation could be from patulous Eustachian tube which we sometimes see after a significant illness and or weight loss. This issue is typically self-limiting. I recommended that he wait a few weeks to obtain the hearing test, as he did lose weight in the hospital which could be affecting his ear symptoms. Waiting a few weeks will allow his body to return to baseline prior to the audiogram. He can consult with audiology about hearing aids at that time. The patient underwent a nasopharyngoscopy during the visit today. The results were reviewed and discussed with the patient. I did not appreciate any abnormal drainage from the sinuses today. As he is asymptomatic at this time, there is no further intervention necessary today. If he becomes symptomatic, then he should call the office and schedule an appointment. I will see him back as needed. documented [facility] this [facility] 01-14-2024 Note I called an spoke to Mrs Delgadillo and advised her to take the pt to the ER for further evaluation. [facility] 01-08-2024 Note Division of Infectio us Diseases - Outpatient Clinic Note Patient name: Yue Delgadillo Patient Today's Date and Time: 01/08/2024, 11:42 AM Primary Care Physician: Brianna Brunner MD Reason for consultation / Chief complaint: Right ear infection History of Present Illness: This is a 73-year old male patient who was initially admitted on December 26, 2023. He presented with a right-sided ear infection. He had a wick placed on December 20, 2023.He was found to have a middle ear effusion. He had been placed on oral Augmentin and Ciprodex drops. He presented to the hospital with worsening symptoms. He was found to have right sided mastoiditis with right sided otitis externa and suppurative otitis media with effusion. He was started on intravenous cefepime, and at the time of discharge, it was plan for this to continue through January 09, 2024. The patient is completing a hospital follow-up with our service today to evaluate for any change of symptoms.He is completing his visit via video with his daughter. He reports they had been infusing the antibiotic as prescribed, but over the last couple of days, the midline has become positional, and the patient's daughter was unable to infuse the antibiotic today. They had contacted their home health care nurse and were recommended to present to the emergency department to have the midline replaced, but they wanted to wait until after this appointment. The patient reports he had otherwise been tolerating the antibiotic without any side effects. He reports significant improvement in symptoms regarding his right ear. He followed up with ENT last Sunday, and he was told the ear was clear, and he could see them as needed. He did develop COVID on Sunday, and he suffered low-grade fevers at that time, but the fevers have since resolved. He has been on paxlovid, and he has been having severe nausea. He denied having any chest pain, shortness of breath, abdominal pain, vomiting, or diarrhea. Past Medical History: No past medical history on file. Past Surgical History: No past surgical history on file. Medications: Social History: Social History Socioeconomic History Marital status: Spouse name: Not on file Number of children: Not on file Years of education: Not on file Highest education level: Not on file Occupational History Not on file Tobacco Use Smoking status: Not on file Smokeless tobacco: Not on file Substance and Sexual Activity Alcohol use: Not on file Drug use: Not on file Sexual activity: Not on file Other Topics Concern Not on file Social History Narrative Not on file Social Determinants of Health Financial Resource Strain: Not on file Food Insecurity: Not on file Transportation Needs: Not on file Physical Activity: Not on file Stress: Not on file Social Connections: Not on file Intimate Partner Violence: Not on file Housing Stability: Not on file Family History: No family history on file. Immunization History: Immunization History Administered Date(s) Administered Covid (Pfizer) Bivalent Booster =>12 YRS 02/07/2022 Influenza, High Dose Seasonal, Preservative Free 01/29/2017, 01/08/2018, 01/13/2019, 01/14/2020 Influenza, High-dose Seasonal, Quadrivalent, Preservative Free 01/14/2021, 02/07/2022, 01/03/2023 Influenza, Unspecified 01/08/2014, 01/25/2015, 03/09/2016 Influenza, seasonal, injectable 01/07/2020 Influenza, seasonal, injectable, preservative free, 6 moonths & older 12/31/2023 Moderna 12 YR UP Vaccine BiValent Booster 05/31/2020 Moderna Covid-19 vaccine, 12&up, Fall 2022-02/02/2023 Pfizer SARS-CoV-2 Vaccination 05/27/2020, 06/18/2020, 01/14/2021, 10/25/2021 Pneumococcal Conjugate PCV 13 03/09/2016 Pneumococcal Polysaccharide PPV23 01/08/2018 RSV, Adult, Bivalent 01/03/2023 Tdap 11/19/2012 Zoster, Recombinant 03/06/2018, 06/23/2018, 01/03/2023 Zoster, live 01/31/2013 Allergies: Allergies Allergen Reactions Amoxicillin Unknown Ciprofloxacin Hives, Other and Unknown Anxiousness Codeine Unknown Unsure of reaction Erythromycin Hives And anxiousness Lanolin Hives Lisinopril Swelling Meloxicam GI intolerance Other Reaction(s): GI Disturbance Other Hives If he eats 2 days in a row Pork Derived (Porcine) Hives If he eats 2 days in a row Sulfa (Sulfonamide Antibiotics) Hives and Unknown Terfenadine Unknown Review of Systems: General: No fevers or chills. Eyes: No double vision or blurry vision. ENT: No sore throat or runny nose. Cardiovascular: No chest pain or palpitations. Lung: No shortness of breath or cough. Abdomen: Nausea without any abdominal pain, vomiting, or diarrhea. Genitourinary: No increased urinary frequency, or dysuria. Musculoskeletal: No muscle aches or pains. Hematologic: No bleeding or bruising. Neurologic: No headache, weakness, numbness, or tingling. Objective Physical Examinati (more content not included)... [facility] 01-03-2024 Miscellaneous Notes Patient's daughter, Kat, called stating that her mom tested positive for covid and is being treated with Paxlovid and quarantined. She states she did test her dad and is negative at the moment. She is wanting to know if there is any way that Paxlovid can be sent to the pharmacy in case he would need it over the weekend. She said he has a little tickle in his throat at this time. Also she wants to know when she should test him again; based on symptoms or in 72 hours? Please advise. Paxlovid script sent. He should hold simvastatin while on Paxlovid. I would only test him if symptoms develop and would not use Paxlovid for a positive test without symptoms. Kat notified and verbalized understanding. [facility] Telephone encounter Note Patient's daughter, Kat, called stating that her mom tested positive for covid and is being treated with Paxlovid and quarantined. She states she did test her dad and is negative at the moment. She is wanting to know if there is any way that Paxlovid can be sent to the pharmacy in case he would need it over the weekend. She said he has a little tickle in his throat at this time. Also she wants to know when she should test him again; based on symptoms or in 72 hours? Please advise. [facility] encounter Note Paxlovid script sent. He should hold simvastatin while on Paxlovid. I would only test him if symptoms develop and would not use Paxlovid for a positive test without symptoms. [facility] 01-03-2024 Telephone encounter Note Akt notified and verbalized understanding. [facility] 01-02-2024 History of Present illness Narrative Patient ID: Yue Delgadillo is a 73 y.o. male. Chief Complaint: Chief Complaint Patient presents with mastoiditis History: Yue Delgadillo is a pleasant 73 y.o. male who presents today for mastoiditis of the right side. Patient has had otalgia and otorrhea but reports his pain has subsided. He notes he has had vertigo for 5-6 years. He describes this as room movement sensation that usually only occurs with fast movement from sitting or laying to standing or moving too quickly. He notes the vertigo sensation has been worse with his ear symptoms but has been present for years and it is improving from when he was hospitalized. Patient denies nausea or vomiting with the vertigo. He notes he now has aural pressure. He did note some increased tinnitus (ringing) in the right ear with onset of symptoms. Patient had total loss of right hearing upon admission into the hospital but this has since improved but is not back to his baseline hearing at this time. Patient admits to an earache on weekend and only has improved since he was prescribed antibiotics. Past History: The following portions of the patient's history were reviewed and updated as appropriate: MEDICATIONS Current Outpatient Medications: albuterol (PROVENTIL HFA;VENTOLIN HFA) 90 mcg/actuation inhaler, Inhale 2 puffs every 6 (six) hours as needed for wheezing., Disp: , Rfl: allopurinoL (ZYLOPRIM) 300 mg tablet, TAKE ONE TABLET BY MOUTH EVERY MORNING, Disp: 90 tablet, Rfl: 3 amLODIPine (NORVASC) 10 mg tablet, take 1 tablet by mouth every morning, Disp: 90 tablet, Rfl: 2 aspirin 81 mg, Take 1 tablet (81 mg total) by mouth in the morning., Disp: , Rfl: cefepime 100 gram recon soln, Infuse 2 g into a venous catheter every 8 (eight) hours for 9 days., Disp: 1 each, Rfl: 0 cefEPime 2,000 mg in sodium chloride 0.9 % 100 mL IVPB MINI-BAG Plus, Infuse 2,000 mg into a venous catheter every 8 (eight) hours for 9 days., Disp: 1 each, Rfl: 0 ciprofloxacin-dexAMETHasone (CIPRODEX) otic suspension, Administer 4 drops to the right ear in the morning and 4 drops before bedtime. Do all this for 10 days., Disp: 7.5 mL, Rfl: 0 fluticasone propionate (FLOVENT HFA) 110 mcg/actuation inhaler, Inhale 2 puffs once daily. Patient only takes when sick, Disp: 12 g, Rfl: 3 chtlfasy-iepn-TA-calcium &mins (THERAGRAN-M) 9 mg iron-400 mcg tablet, Take 1 tablet by mouth in the morning., Disp: , Rfl: omega-3 fatty acids-fish oil 300-1,000 mg capsule, Take 1,200 mg by mouth daily., Disp: , Rfl: omeprazole (PriLOSEC) 20 mg capsule, take 2 capsules by mouth every morning, Disp: 180 capsule, Rfl: 2 simvastatin (ZOCOR) 20 mg tablet, TAKE ONE TABLET BY MOUTH EVERY MORNING, Disp: 90 tablet, Rfl: 3 traMADoL (ULTRAM) 50 mg tablet, Take 1 tablet (50 mg total) by mouth every 8 (eight) hours as needed for pain for up to 5 days. (Patient taking differently: Take 1 tablet (50 mg total) by mouth every 8 (eight) hours as needed for pain. Pt only taking at bedtime), Disp: 15 tablet, Rfl: 0 ALLERGIES Ciprofloxacin, Codeine, Erythromycin, Lanolin, Lisinopril, Meloxicam, Pork derived (porcine), and Sulfa (sulfonamide antibiotics) PAST MEDICAL HISTORY Past Medical History: Diagnosis Date Arthritis Asthma GERD (gastroesophageal reflux disease) Gout HL (hearing loss) Hyperlipidemia Hypertension Mastoiditis of right side 12/26/2023 Pneumonia Prostate cancer ([facility]) Visual impairment PAST SURGICAL HISTORY Past Surgical History: Procedure Laterality Date APPENDECTOMY CARDIAC CATHETERIZATION COLONOSCOPY COLONOSCOPY DIAGNOSTIC / SCREENING N/A 02/21/2023 Performed by Buddy Ureña MD at [facility] JOINT REPLACEMENT 01/02/2020 PROSTATE BIOPSY PROSTATECTOMY REPLACEMENT TOTAL KNEE Right TOOTH EXTRACTION VASECTOMY 1988 SOCIAL HISTORY Social History Tobacco Use Smoking status: Former Current packs/day: 0.50 Types: Cigarettes Smokeless tobacco: Never Vaping Use Vaping status: Never Used Substance Use Topics Alcohol use: Yes Alcohol/week: 6.0 standard drinks of alcohol Types: 6 Cans of beer per week Drug use: No FAMILY HISTORY Family History Problem Relation Age of Onset Amy's disease Mother Asthma Mother Heart disease Father REVIEW OF SYSTEMS Review of Systems Constitutional: Negative for fever and chills. HENT: Positive for ear discharge and ear pain. Endocrine: Negative for cold intolerance and heat intolerance. Allergic/Immunologic: Negative for food allergies. Neurological: Negative for seizures. Hematological: Does not bruise/bleed easily. Psychiatric/Behavioral: Negative for confusion. Data Review: Physicial Exam: There were no vitals taken for this visit. Constitution: Patient appears healthy, alert, oriented, with their usual voice, communication, and affect Head and Face: Normocephalic and Atraumatic. Facial nerve function normal Eyes: No Strabismus and EOM normal Ear: external ear normal, canal normal, and TM normal without fluid or infection Tube in right ear is intact Nose and Nasal Cavity: The external appearance, nasal mucosa, septum, and turbinates are unremarkable without drainage or lesion Oral Cavity: The lips, gums and teeth are unremarkable without mass or lesion. Neck: No asymmetry or mass, thyroid normal, no lymphadenopathy. Salivary glands normal. Cranial Nerves: Cranial nerves intact Procedure: Microscopic Examination Pre Op Diagnosis: Chronic otitis Post Op Diagnosis: Same Procedure: Otologic Microscopic Examination Surgeon: Logan Arana MD Consent: Verbal Consent was obtained prior to the procedure. Anesthesia: None Complications: none Procedure: In a reclined position, using an otologic microscope, the examination was performed. Findings: See the findings recorded under the physical examination. Assessment Impression: Ears are healing well The right PE Tube is patent. The middle ear is clear Plan: - Microscopic examination was completed in office today. The ears appear generally healthy. - Continue ciprodex eardrops. - Follow-up as needed. Visit Diagnosis and Orders: Yue was seen today for mastoiditis. Diagnoses and all orders for this visit: Right ear pain Mixed conductive and 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 Mastoiditis of right side Scribe Statement Scribed for LOGAN ARANA MD by kala Frances. Provider Statement I LOGAN ARANA MD personally performed the services described in the documentation as described by the above named scribe. It is both accurate and complete at the time of final signature. Sharita Motley MA 01/02/24 [id number] documented in this encounter [facility] 01-02-2024 Instructions Home [facility] - 01/02/2024 2:30 PM EDT - Microscopic examination was completed in office today. The ears appear generally healthy. - Continue ciprodex eardrops. - Follow-up as needed. documented in this encounter [facility] 01-01-2024 Miscellaneous Notes Transition of Care (*required) *Additional Questions/Concerns Requiring PCP Follow-Up: -Did not reach patient This documentation is being used for Transition of Care purposes: Yes Goal: Patient will demonstrate a safe transition from hospital to home Diagnosis on Discharge: DISCHARGE DIAGNOSES: Principal Problem: Mastoiditis of right side Active Problems: Essential hypertension Asthma in adult, mild persistent, uncomplicated Hyperlipidemia Discharge Specialty: Infectious Disease *Name of Discharging Facility: [facility] Date of Facility Discharge: Admission 12/26/23 Discharge 12/31/23 Date of Interactive Contact and Name of Assembler Bicycle: 01/01/24 12:20 pm Unable to reach patient. LVM 01/01/24 3:14 pm Unable to reach patient *Medication Review Completed: No START taking: cefepime cefEPime 2,000 mg in sodium chloride 0.9 % 100 mL IVPB MINI-BAG Plus CHANGE how you take: fluticasone propionate (FLOVENT HFA) STOP taking: amoxicillin-pot clavulanate 875-125 mg per tablet (AUGMENTIN) hydrocortisone-acetic acid otic solution (VOSOL-HC) tobramycin-dexAMETHasone ophthalmic solution (Tobradex) Medication Reconciliation Questions/Concerns: NA *Follow Up Appointments with Providers: Primary: Brianna Brunner MD Specialty: Infectious Disease Specialty: Otolaryngology in 2 weeks Specialty: Review of Pending Lab/Diagnostic Tests and Plan for Completion: NA Assessment and Support of Treatment Regimen Adherence and Medication Management: NA Education Provided by ACN to Support Self-Management, Independent Living and ADLs: NA Communication with Home Health Agencies and Other Services Utilized/Needed by the Patient: NA documented in this encounter [facility] 01-01-2024 Telephone encounter Note Transition of Care (*required) *Additional Questions/Concerns Requiring PCP Follow-Up: -Did not reach patient This documentation is being used for Transition of Care purposes: Yes Goal: Patient will demonstrate a safe transition from hospital to home Diagnosis on Discharge: DISCHARGE DIAGNOSES: Principal Problem: Mastoiditis of right side Active Problems: Essential hypertension Asthma in adult, mild persistent, uncomplicated Hyperlipidemia Discharge Specialty: Infectious Disease *Name of Discharging Facility: [facility] Date of Facility Discharge: Admission 12/26/23 Discharge 12/31/23 Date of Interactive Contact and Name of Assembler Bicycle: 01/01/24 12:20 pm Unable to reach patient. [facility] 01/01/24 3:14 pm Unable to reach patient *Medication Review Completed: No START taking: cefepime cefEPime 2,000 mg in sodium chloride 0.9 % 100 mL IVPB MINI-BAG Plus CHANGE how you take: fluticasone propionate (FLOVENT HFA) STOP taking: amoxicillin-pot clavulanate 875-125 mg per tablet (AUGMENTIN) hydrocortisone-acetic acid otic solution (VOSOL-HC) tobramycin-dexAMETHasone ophthalmic solution (Tobradex) Medication Reconciliation Questions/Concerns: NA *Follow Up Appointments with Providers: Primary: Brianna Brunner MD Specialty: Infectious Disease Specialty: Otolaryngology in 2 weeks Specialty: Review of Pending Lab/Diagnostic Tests and Plan for Completion: NA Assessment and Support of Treatment Regimen Adherence and Medication Management: NA Education Provided by ACN to Support Self-Management, Independent Living and ADLs: NA Communication with Home Health Agencies and Other Services Utilized/Needed by the Patient: NA [facility] 01-01-2024 Miscellaneous Notes Elo Johnson MD; dOalis Caruso; P Pmn Ent Scheduling Team; P [facility] Ent Transactional Paralegal Patient is scheduled with Dr. Arana 01/01 at 2:30. Previous Messages ----- Message ----- From: Oscar Johnson MD Sent: 01/01/2024 7:38 AM EDT To: Odalis Caruso; Pmn Ent Scheduling Team Subject: Right mastoiditis This patient gets scheduled to see Dr. Arana on Sunday. He was hospitalized. He is now discharge. He will need to see him on Sunday. documented in this encounter [facility] 01-01-2024 Telephone encounter Note Elo Johnson MD; Odalis Caruso; P Pmn Ent Scheduling Team; P [facility] Ent Transactional Paralegal Patient is scheduled with Dr. Arana 01/01 at 2:30. Previous Messages ----- Message ----- From: Oscar Johnson MD Sent: 01/01/2024 7:38 AM EDT To: Odalis Caruso; Pmn Ent Scheduling Team Subject: Right mastoiditis This patient gets scheduled to see Dr. Arana on Sunday. He was hospitalized. He is now discharge. He will need to see him on Sunday. [facility] 12-31-2023 Progress note Formatting of t his note might be different from the original. DISCHARGE PLANNING NOTE CRF sent to [facility] and [facility] via [employer]. - Estefany Franz RN 12/31/23 2:54 PM [facility] 12-31-2023 Miscellaneous Notes DISCHARGE PLANNING NOTE CRF sent to [facility] and [facility] via [employer]. - Estefany Franz RN 12/31/23 2:54 PM DISCHARGE PLANNING NOTE Met with patient and his . Discussed the cost of antibiotics will be 249.75/per week, they are accepting of cost. They have chosen [facility]. Awaiting scripts and midline placement to coordinate discharge to home with home care. [facility] to contact ID for script. 12:17 Received script for Cefepime and faxed to [facility], awaiting for time they can deliver and if [facility] can do SOC for tomorrow. 12:45 Second IMM given. [facility] will deliver tonight and [facility] will doa SOC in the morning. Patient and daughter notified of this and are in agreement. Problem: Safety Goal: Patient will be injury free during hospitalization Description: INTERVENTIONS: 1. Assess patient's risk for falls and implement fall prevention plan of care per policy 2. Provide and maintain a safe environment 3. Proper use of double Identifiers 4. Medication administration using the 5 rights 5. Hand hygiene 6. Specimens are labeled at the bedside 7. Instruct patient/ patient territory service representative about use of safety devices 8. Include patient/ patient territory service representative in decisions related to safety Outcome: Progressing Note: Evaluation of progress towards goal:Safety maintained, call light and personal items within reach Problem: Pain Goal: Patient goal is pain score less than 4, able to rest, and participant in treatment plan as appropriate Description: INTERVENTIONS: 1. Encourage patient or legal territory service representative to report early pain and ask for pain medicine when needed 2. Assess pain using appropriate pain scale and include the scale used when documenting 3. Administer analgesics based on type and severity of pain and evaluate response within appropriate time frame 4. Implement non-pharmacological measures as appropriate and evaluate response 5. Consider cultural and social influences on pain and pain management 6. Notify LIP if interventions ineffective or patient reports new pain 7. Monitor vital signs including pulse ox, end-tidal CO2 based on pain intervention 8. Reassess pain per policy 9. Teach patient or legal territory service representative interventions for comforting Outcome: Progressing Note: Evaluation of progress towards goal: Patient denies pain at this time. Will continue to monitor. Problem: Safety Goal: Patient will be injury free during hospitalization Description: INTERVENTIONS: 1. Assess patient's risk for falls and implement fall prevention plan of care per policy 2. Provide and maintain a safe environment 3. Proper use of double Identifiers 4. Medication administration using the 5 rights 5. Hand hygiene 6. Specimens are labeled at the bedside 7. Instruct patient/ patient territory service representative about use of safety devices 8. Include patient/ patient territory service representative in decisions related to safety Outcome: Progressing Note: Evaluation of progress towards goal: Patient free from hospital injury. Will continue to assess risk for falls throughout shift. Problem: Infection Goal: Absence of infection during hospitalization Description: Interventions: 1. Assess and monitor for signs and symptoms of infection 2. Monitor lab/diagnostic results 3. Monitor all insertion sites i.e., indwelling lines, tubes and drains 4. Monitor endotracheal (as able) and nasal secretions for changes in amount and color 5. Administer medications as ordered 6. Instruct and encourage patient and family to use good hand hygiene technique 7. Identify and instruct patient/patient territory service representative in use of appropriate isolation precautions for identified infection/symptoms 8. Provide and discuss with patient/patient territory service representative on educational MDRO sheet 9. Encourage and monitor nutritional status daily and consult apparel pattern maker if indicated 10. Implement neutropenic guidelines as needed 11. Review exposure to history of communicable disease and recent travel history on admission 12. Encourage annual influenza vaccine 13. Encourage pneumonia vaccine Outcome: Progressing Note: Evaluation of progress towards goal: Monitor labs and vital signs. Patient afebrile at this time. Problem: Knowledge Deficit Goal: Patient/patient territory service representative demonstrates understanding of disease process, treatment plan, medications, and discharge instructions Description: INTERVENTIONS 1. Complete learning assessment and assess knowledge base 2. Provide teaching at level of understanding 3. Provide teaching via preferred learning method(s) Outcome: Progressing Note: Evaluation of progress towards goal: Plan of care reviewed with patient. Medications discussed prior to administration. Problem: Safety Goal: Patient will be injury free during hospitalization Description: INTERVENTIONS: 1. Assess patient's risk for falls and implement fall prevention plan of care per policy 2. Provide and maintain a safe environment 3. Proper use of double Identifiers 4. Medication administration using the 5 rights 5. Hand hygiene 6. Specimens are labeled at the bedside 7. Instruct patient/ patient territory service representative about use of safety devices 8. Include patient/ patient territory service representative in decisions related to safety Outcome: Progressing Note: Evaluation of progress towards goal:Safety maintained, call light and personal items within reach Problem: Pain Goal: Patient goal is pain score less than 4, able to rest, and participant in treatment plan as appropriate Description: INTERVENTIONS: 1. Encourage patient or legal territory service representative to report early pain and ask for pain medicine when needed 2. Assess pain using appropriate pain scale and include the scale used when documenting 3. Administer analgesics based on type and severity of pain and evaluate response within appropriate time frame 4. Implement non-pharmacological measures as appropriate and evaluate response 5. Consider cultural and social influences on pain and pain management 6. Notify LIP if interventions ineffective or patient reports new pain 7. Monitor vital signs including pulse ox, end-tidal CO2 based on pain intervention 8. Reassess pain per policy 9. Teach patient or legal territory service representative interventions for comforting Outcome: Progressing Note: Evaluation of progress towards goal: PRN pain medication available per patient request. Will continue to monitor. Problem: Safety Goal: Patient will be injury free during hospitalization Description: INTERVENTIONS: 1. Assess patient's risk for falls and implement fall prevention plan of care per policy 2. Provide and maintain a safe environment 3. Proper use of double Identifiers 4. Medication administration using the 5 rights 5. Hand hygiene 6. Specimens are labeled at the bedside 7. Instruct patient/ patient territory service representative about use of safety devices 8. Include patient/ patient territory service representative in decisions related to safety Outcome: Progressing Note: Evaluation of progress towards goal: Patient free from hospital injury. Will continue to assess risk for falls throughout shift. Problem: Infection Goal: Absence of infection during hospitalization Description: Interventions: 1. Assess and monitor for signs and symptoms of infection 2. Monitor lab/diagnostic results 3. Monitor all insertion sites i.e., indwelling lines, tubes and drains 4. Monitor endotracheal (as able) and nasal secretions for changes in amount and color 5. Administer medications as ordered 6. Instruct and encourage patient and family to use good hand hygiene technique 7. Identify and instruct patient/patient territory service representative in use of appropriate isolation precautions for identified infection/symptoms 8. Provide and discuss with patient/patient territory service representative on educational MDRO sheet 9. Encourage and monitor nutritional status daily and consult apparel pattern maker if indicated 10. Implement neutropenic guidelines as needed 11. Review exposure to history of communicable disease and recent travel history on admission 12. Encourage annual influenza vaccine 13. Encourage pneumonia vaccine Outcome: Progressing Note: Evaluation of progress towards goal: Monitor labs and vital signs. Patient afebrile at this time. Problem: Knowledge Deficit Goal: Patient/patient territory service representative demonstrates understanding of disease process, treatment plan, medications, and discharge instructions Description: INTERVENTIONS 1. Complete learning assessment and assess knowledge base 2. Provide teaching at level of understanding 3. Provide teaching via preferred learning method(s) Outcome: Progressing Note: Evaluation of progress towards goal: Plan of care reviewed with patient. Medications discussed prior to administration. Problem: Safety Goal: Patient will be injury free during hospitalization Description: INTERVENTIONS: 1. Assess patient's risk for falls and implement fall prevention plan of care per policy 2. Provide and maintain a safe environment 3. Proper use of double Identifiers 4. Medication administration using the 5 rights 5. Hand hygiene 6. Specimens are labeled at the bedside 7. Instruct patient/ patient territory service representative about use of safety devices 8. Include patient/ patient territory service representative in decisions related to safety Outcome: Progressing Note: Evaluation of progress towards goal:Safety maintained, call light and personal items within reach DISCHARGE PLANNING NOTE Referral sent to. [facility]- P# ; F# [facility] and [facility] (P# ; F# ) [address] [facility] [place] (P# ; F# ) [facility] ([place]: P# ; F# ); DISCHARGE PLANNING NOTE Referral sent to [facility], [facility] [place] [place] [facility] - (P# ; F# ) Query Response Note AUTOMATED QUERY TEXT: Type of Asthma: This query seeks further clarification of documentation to reflect all conditions that you are monitoring, evaluating, treating or that extend hospitalization or utilize additional resources. Please utilize your independent clinical judgment when addressing the question(s) below. Please provide further specificity, if known. Clinical indicators include: asthma, flovent, spo2, o2, wheezing, rales, co2, opacification, steroid, accessory muscle, crackles, wheezes Options provided: -- Cough variant asthma -- Asthma with COPD -- Status asthmaticus -- Asthma with acute exacerbation -- Exercise induced bronchospasm -- Allergic asthma -- Non-allergic asthma -- Reactive airway disease due to cause other than asthma -- Other - I will add my own diagnosis -- Dismiss - Not applicable / Not valid AUTOMATED QUERY RESPONSE TEXT: Asthma, not in exacerbation Electronically signed by: Georgie Menendez MD 12/28/2023 2:36 PM Problem: Pain Goal: Patient goal is pain score less than 4, able to rest, and participant in treatment plan as appropriate Description: INTERVENTIONS: 1. Encourage patient or legal territory service representative to report early pain and ask for pain medicine when needed 2. Assess pain using appropriate pain scale and include the scale used when documenting 3. Administer analgesics based on type and severity of pain and evaluate response within appropriate time frame 4. Implement non-pharmacological measures as appropriate and evaluate response 5. Consider cultural and social influences on pain and pain management 6. Notify LIP if interventions ineffective or patient reports new pain 7. Monitor vital signs including pulse ox, end-tidal CO2 based on pain intervention 8. Reassess pain per policy 9. Teach patient or legal territory service representative interventions for comforting Outcome: Progressing Note: Evaluation of progress towards goal: c/o mild right ear pain medicated as needed with relief Problem: Safety Goal: Patient will be injury free during hospitalization Description: INTERVENTIONS: 1. Assess patient's risk for falls and implement fall prevention plan of care per policy 2. Provide and maintain a safe environment 3. Proper use of double Identifiers 4. Medication administration using the 5 rights 5. Hand hygiene 6. Specimens are labeled at the bedside 7. Instruct patient/ patient territory service representative about use of safety devices 8. Include patient/ patient territory service representative in decisions related to safety Outcome: Progressing Note: Evaluation of progress towards goal: safety measures maintained no injuries Problem: Infection Goal: Absence of infection during hospitalization Description: Interventions: 1. Assess and monitor for signs and symptoms of infection 2. Monitor lab/diagnostic results 3. Monitor all insertion sites i.e., indwelling lines, tubes and drains 4. Monitor endotracheal (as able) and nasal secretions for changes in amount and color 5. Administer medications as ordered 6. Instruct and encourage patient and family to use good hand hygiene technique 7. Identify and instruct patient/patient territory service representative in use of appropriate isolation precautions for identified infection/symptoms 8. Provide and discuss with patient/patient territory service representative on educational MDRO sheet 9. Encourage and monitor nutritional status daily and consult apparel pattern maker if indicated 10. Implement neutropenic guidelines as needed 11. Review exposure to history of communicable disease and recent travel history on admission 12. Encourage annual influenza vaccine 13. Encourage pneumonia vaccine Outcome: Progressing Note: Evaluation of progress towards goal: continue iv antibiotics for ear infection Problem: Knowledge Deficit Goal: Patient/patient territory service representative demonstrates understanding of disease process, treatment plan, medications, and discharge instructions Description: INTERVENTIONS 1. Complete learning assessment and assess knowledge base 2. Provide teaching at level of understanding 3. Provide teaching via preferred learning method(s) Outcome: Progressing Note: Evaluation of progress towards goal: all care explained Problem: Discharge Planning Goal: Discharge to post-acute care, other facility, or home with appropriate resources Description: Patient's goal is: INTERVENTIONS 1. Conduct assessment to determine patient/family and health care team treatment goals, and need for post-acute services based on payer coverage, community resources, and patient preferences, and barriers to discharge 2. Coordinate with Social work, Care Navigation, and Utilization Review to arrange appropriate level of services according to patient's needs based on patient preference and payer coverage in collaboration with the physician and health care team 3. Address psychosocial, clinical, and financial barriers to discharge as identified in assessment in conjunction with the patient/family and health care team 4. Consult appropriate ancillary services (i.e.. PT/OT/ST, etc) as needed 5. Communicate with and update the patient/family, physician, and health care team regarding progress on the discharge plan 6. Identify discharge learning needs (meds, wound care, etc). 7. Arrange for needed discharge transportation as appropriate Outcome: Progressing Note: Evaluation of progress towards goal: plans to return home at discharge Problem: Pain Goal: Patient goal is pain score less than 4, able to rest, and participant in treatment plan as appropriate Description: INTERVENTIONS: 1. Encourage patient or legal territory service representative to report early pain and ask for pain medicine when needed 2. Assess pain using appropriate pain scale and include the scale used when documenting 3. Administer analgesics based on type and severity of pain and evaluate response within appropriate time frame 4. Implement non-pharmacological measures as appropriate and evaluate response 5. Consider cultural and social influences on pain and pain management 6. Notify LIP if interventions ineffective or patient reports new pain 7. Monitor vital signs including pulse ox, end-tidal CO2 based on pain intervention 8. Reassess pain per policy 9. Teach patient or legal territory service representative interventions for comforting Outcome: Progressing Note: Evaluation of progress towards goal: patient pain managed with PRN pain medication. Will continue to monitor. Problem: Safety Goal: Patient will be injury free during hospitalization Description: INTERVENTIONS: 1. Assess patient's risk for falls and implement fall prevention plan of care per policy 2. Provide and maintain a safe environment 3. Proper use of double Identifiers 4. Medication administration using the 5 rights 5. Hand hygiene 6. Specimens are labeled at the bedside 7. Instruct patient/ patient territory service representative about use of safety devices 8. Include patient/ patient territory service representative in decisions related to safety Outcome: Progressing Note: Evaluation of progress towards goal: patient's room is free of clutter, bed is locked and in the lowest position, call light and personal belongings are within reach. Hourly rounding completed and will continue throughout shift. Will continue to monitor. Problem: Pain Goal: Patient goal is pain score less than 4, able to rest, and participant in treatment plan as appropriate Description: INTERVENTIONS: 1. Encourage patient or legal territory service representative to report early pain and ask for pain medicine when needed 2. Assess pain using appropriate pain scale and include the scale used when documenting 3. Administer analgesics based on type and severity of pain and evaluate response within appropriate time frame 4. Implement non-pharmacological measures as appropriate and evaluate response 5. Consider cultural and social influences on pain and pain management 6. Notify LIP if interventions ineffective or patient reports new pain 7. Monitor vital signs including pulse ox, end-tidal CO2 based on pain intervention 8. Reassess pain per policy 9. Teach patient or legal territory service representative interventions for comforting Outcome: Progressing Note: Evaluation of progress towards goal: pt denies pain at this time, plan of care ongoing. Problem: Safety Goal: Patient will be injury free during hospitalization Description: INTERVENTIONS: 1. Assess patient's risk for falls and implement fall prevention plan of care per policy 2. Provide and maintain a safe environment 3. Proper use of double Identifiers 4. Medication administration using the 5 rights 5. Hand hygiene 6. Specimens are labeled at the bedside 7. Instruct patient/ patient territory service representative about use of safety devices 8. Include patient/ patient territory service representative in decisions related to safety Outcome: Progressing Note: Evaluation of progress towards goal: Pt walkway clear and well lit. Safety measures in place, plan of care ongoing. Problem: Infection Goal: Absence of infection during hospitalization Description: Interventions: 1. Assess and monitor for signs and symptoms of infection 2. Monitor lab/diagnostic results 3. Monitor all insertion sites i.e., indwelling lines, tubes and drains 4. Monitor endotracheal (as able) and nasal secretions for changes in amount and color 5. Administer medications as ordered 6. Instruct and encourage patient and family to use good hand hygiene technique 7. Identify and instruct patient/patient territory service representative in use of appropriate isolation precautions for identified infection/symptoms 8. Provide and discuss with patient/patient territory service representative on educational MDRO sheet 9. Encourage and monitor nutritional status daily and consult apparel pattern maker if indicated 10. Implement neutropenic guidelines as needed 11. Review exposure to history of communicable disease and recent travel history on admission 12. Encourage annual influenza vaccine 13. Encourage pneumonia vaccine Outcome: Progressing Note: Evaluation of progress towards goal: Pt denies fever., no purulent drainage noted. Plan of care on going. Problem: Knowledge Deficit Goal: Patient/patient territory service representative demonstrates understanding of disease process, treatment plan, medications, and discharge instructions Description: INTERVENTIONS 1. Complete learning assessment and assess knowledge base 2. Provide teaching at level of understanding 3. Provide teaching via preferred learning method(s) Outcome: Progressing Note: Evaluation of progress towards goal: Will continue to assess pt and educate until verbalizing a level of understanding. Problem: Discharge Planning Goal: Discharge to post-acute care, other facility, or home with appropriate resources Description: Patient's goal is: INTERVENTIONS 1. Conduct assessment to determine patient/family and health care team treatment goals, and need for post-acute services based on payer coverage, community resources, and patient preferences, and barriers to discharge 2. Coordinate with Social work, Care Navigation, and Utilization Review to arrange appropriate level of services according to patient's needs based on patient preference and payer coverage in collaboration with the physician and health care team 3. Address psychosocial, clinical, and financial barriers to discharge as identified in assessment in conjunction with the patient/family and health care team 4. Consult appropriate ancillary services (i.e.. PT/OT/ST, etc) as needed 5. Communicate with and update the patient/family, physician, and health care team regarding progress on the discharge plan 6. Identify discharge learning needs (meds, wound care, etc). 7. Arrange for needed discharge transportation as appropriate Outcome: Progressing Note: Evaluation of progress towards goal: Pt will be discharged with appropriate resources. Problem: Pain Goal: Patient goal is pain score less than 4, able to rest, and participant in treatment plan as appropriate Description: INTERVENTIONS: 1. Encourage patient or legal territory service representative to report early pain and ask for pain medicine when needed 2. Assess pain using appropriate pain scale and include the scale used when documenting 3. Administer analgesics based on type and severity of pain and evaluate response within appropriate time frame 4. Implement non-pharmacological measures as appropriate and evaluate response 5. Consider cultural and social influences on pain and pain management 6. Notify LIP if interventions ineffective or patient reports new pain 7. Monitor vital signs including pulse ox, end-tidal CO2 based on pain intervention 8. Reassess pain per policy 9. Teach patient or legal territory service representative interventions for comforting Outcome: Progressing Note: Evaluation of progress towards goal: Pt encouraged to monitor one's own pain. PRN pain meds available. Continue to monitor pt. Problem: Safety Goal: Patient will be injury free during hospitalization Description: INTERVENTIONS: 1. Assess patient's risk for falls and implement fall prevention plan of care per policy 2. Provide and maintain a safe environment 3. Proper use of double Identifiers 4. Medication administration using the 5 rights 5. Hand hygiene 6. Specimens are labeled at the bedside 7. Instruct patient/ patient territory service representative about use of safety devices 8. Include patient/ patient territory service representative in decisions related to safety Outcome: Progressing Note: Evaluation of progress towards goal: Pt will be free of injury during hospitalization. Pt is educated on hourly rounding and call light system. Problem: Infection Goal: Absence of infection during hospitalization Description: Interventions: 1. Assess and monitor for signs and symptoms of infection 2. Monitor lab/diagnostic results 3. Monitor all insertion sites i.e., indwelling lines, tubes and drains 4. Monitor endotracheal (as able) and nasal secretions for changes in amount and color 5. Administer medications as ordered 6. Instruct and encourage patient and family to use good hand hygiene technique 7. Identify and instruct patient/patient territory service representative in use of appropriate isolation precautions for identified infection/symptoms 8. Provide and discuss with patient/patient territory service representative on educational MDRO sheet 9. Encourage and monitor nutritional status daily and consult apparel pattern maker if indicated 10. Implement neutropenic guidelines as needed 11. Review exposure to history of communicable disease and recent travel history on admission 12. Encourage annual influenza vaccine 13. Encourage pneumonia vaccine Outcome: Progressing Note: Evaluation of progress towards goal: Pt is free of signs and symptoms of infection, Continue to monitor labs and pt. Problem: Knowledge Deficit Goal: Patient/patient territory service representative demonstrates understanding of disease process, treatment plan, medications, and discharge instructions Description: INTERVENTIONS 1. Complete learning assessment and assess knowledge base 2. Provide teaching at level of understanding 3. Provide teaching via preferred learning method(s) Outcome: Progressing Note: Evaluation of progress towards goal: Pt is updated on plan of care. No questions or concerns voiced at this time. Problem: Moderate - High Risk Fall Score Description: Gonzales Fall Score of =/> 25 or indicated by [facility] Assessment Goal: Patient should be free from fall Description: Interventions: 1. [place] to environment 2. Hourly rounds addressing the 4 P's (Pain, Positioning, Possessions, Potty) 3. Clear area of hazards (spills, clutter, electrical cords, unnecessary equipment) 4. Place equipment (bed & TV controls, call light, phone, urinal) within reach 5. Encourage patient to wear glasses and hearing aides as appropriate 6. Maintain bed in lowest position 7. Lock wheels on bed/wheelchair 8. Provide adequate lighting, including night light 9. Assess need for additional bedding, food/fluids, pain med's prior to sleep/routinely 10. Provide gripper slippers or personal non-skid footwear 11. Teach patient and patient territory service representative to maintain environment for safety and engage in all aspects of fall prevention program 12. Remind patient to call for help before getting out of bed 13. Initiate bed/chair/exit alarms supportive devices as appropriate, (chair wedge, no-skid floor mat, raised edge mattress, hip protectors) 14. Locate patient bed assignment for optimal visualization 15. Evaluate and identify Safe Patient Handling Equipment needs 16. Provide supervision when out of bed or chair 17. Utilize gait belt as needed to assist with ambulation 18. Place adaptive equipment (cane, walker) within reach 19. Request patient territory service representative bring adaptive equipment/mobility aids from home or obtain and provide as needed 20. Consult pharmacy regarding effects of med's affecting mobility, cognition, and alternatives 21. Obtain physician order for PT if risk factors associated with mobility are present 22. Obtain physician order for OT as appropriate 23. Utilize diversional activities 24. Educate patient and patient territory service representative how to maintain a safe environment during visitation times (notify nurse prior to leaving bedside) 25. Consider appropriateness of medical or non-medical billing clerk 26. Set up voiding schedule as appropriate (every 2 hours) Outcome: Progressing Note: Evaluation of progress towards goal: Pt will be free of falls during admission. Problem: Safety Goal: Patient will be injury free during hospitalization Description: INTERVENTIONS: 1. Assess patient's risk for falls and implement fall prevention plan of care per policy 2. Provide and maintain a safe environment 3. Proper use of double Identifiers 4. Medication administration using the 5 rights 5. Hand hygiene 6. Specimens are labeled at the bedside 7. Instruct patient/ patient territory service representative about use of safety devices 8. Include patient/ patient territory service representative in decisions related to safety Outcome: Progressing Note: Evaluation of progress towards goal: Assess safety q4h, prn. Bed in low and locked position. Call light in reach. Safety maintained. documented in this encounter [facility] 12-31-2023 Hospital course Narrative Images from the original note were not included. DISCHARGE NOTE Demographics: Patient Name: Yue Delgadillo : 1950 DATE OF ADMISSION: 12/26/2023 DATE OF DISCHARGE: 12/31/2023 DISCHARGE DIAGNOSES: Principal Problem: Mastoiditis of right side Active Problems: Essential hypertension Asthma in adult, mild persistent, uncomplicated Hyperlipidemia CONSULTANTS: Consulting Providers Provider Service Specialty Seamus Marino MD Z Infectious Disease Infectious Disease Balaji Lisa DO -- Otolaryngology [facility] Division Of Infectious Disease -- Infectious Disease PCP: Patient Care Team: Brianna Brunner MD as PCP - General (Pediatrics) PROCEDURES PERFORMED: none HOSPITAL COURSE SUMMARY: Per HPI: Mr Romo is a 73-year-old male with past medical history significant for asthma, essential hypertension who presented from ENT clinic for persistent right-sided otitis. Patient had been on otic drops and oral antibiotics outpatient with no improvement. Patient was hemodynamically stable and afebrile. He was admitted for further management. He was started on IV Unasyn on admission. However due to concern for pseudomonal infection given his no improvement, he was switched to cefepime by Infectious Disease. He was also continued on Ciprodex drops. ENT and ID were both following during his hospital stay. He is currently improving. Pain has improved significantly. Per ID and ENT, plan to continue IV antibiotics at home. Home healthcare has been set up with case management. Plan to follow-up outpatient with ID and ENT in clinic. If no resolution of symptoms, might consider biopsy outpatient. Patient is currently feeling well. No pain. Home health has been arranged outpatient. Midline will be placed. IV antibiotics have been arranged with Case Management. Discharging home today. Right otomastoiditis CT neck and CT temporal bones noted Patient failed several courses of antibiotic outpatient (augmentin, steroid and antibiotics ear drops) Was also on unasyn inpatient. No improvement -ENT and ID following, unasyn changed to cefepime. Also on Ciprodex drops, continue -Per ID, consider biopsy of mastoid bone if the patient does not improve. Per ENT, if required, he would require mastoidectomy with biopsy. For now, since symptoms are improving, plan to discharge on IV antibiotics with cefepime until January 08. Midline placed. Home health has been arranged. Plan for outpatient follow-up for further evaluation with ID and ENT in clinic. Essential hypertension Continue home Amlodipine Monitor BP with PCP Mild thrombocytopenia, platelets 138 noted on labs today. Follow-up labs outpatient with PCP to ensure resolution Hyperlipidemia, continue statin Gout, continue allopurinol Asthma, not in exacerbation, Only uses Flovent when needed GERD, Continue home prilosec Exam: BP 140/83 Pulse 77 Temp 36.3 C (97.3 F) (Oral) Resp 18 Ht 177.8 cm (5' 10 ) Wt 92.4 kg (203 lb 11.3 oz) SpO2 90% BMI 29.23 kg/m Intake/Output Summary (Last 24 hours) at 12/31/2023 1431 Last data filed at 12/31/2023 0900 Gross per 24 hour Intake 120 ml Output -- Net 120 ml General appearance: alert, appears stated age, cooperative and no distress Head: Normocephalic, without obvious abnormality, atraumatic Throat: lips, mucosa, and tongue normal; teeth and gums normal Neck: no JVD and supple, symmetrical, trachea midline Pulmonary: Clear breath sounds bilaterally, no audible wheezes, or crackles Chest wall: no tenderness Heart normal S1 and S2. No audible murmurs Abdomen: soft nondistended, nontender, positive bowel sounds Extremities: extremities normal, atraumatic, no cyanosis or edema Skin: Skin color, texture, turgor normal. No rashes or lesions Neurologic: Grossly normal Labs: Recent Results (from the past 48 hour(s)) CBC auto differential Collection Time: 12/30/23 5:14 AM Result Value Ref Range White Blood Cells 8.1 4.0 - 11.0 X10E9/L RBC count 5.10 4.10 - 5.70 X10E12/L Hemoglobin 16.5 13.0 - 17.0 g/dL Hematocrit 47.1 39 - 49 % MCV 92 80 - 100 fL MCH 32.3 27 - 34 pg MCHC 35.0 32 - 36 g/dL RDW 14.7 11.5 - 15.0 % Platelets 228 150 - 450 X10E9/L MPV 10.5 7 - 12 fL % neutrophils 66.4 % % lymphocytes 19.8 % % monocytes 11.6 % % eosinophils 1.5 % % Basophils 0.7 % Neutrophils Absolute (A) 5.3 1.5 - 6.6 X10E9/L Lymphocytes Absolute 1.6 1.0 - 3.5 X10E9/L Monocytes Absolute 0.9 0 - 0.9 X10E9/L Eosinophils Absolute 0.1 0.0 - 0.4 X10E9/L Basophils Absolute 0.1 0.0 - 0.2 X10E9/L Basic Metabolic Panel Collection Time: 12/30/23 5:14 AM Result Value Ref Range Sodium 138 134 - 146 mmol/L Potassium, Bld 3.9 3.5 - 5.0 mmol/L Chloride 103 98 - 109 mmol/L CO2 25 22 - 32 mmol/L Anion gap 10 5 - 15 mmol/L BUN 21 5 - 27 mg/dL Creatinine 0.93 0.60 - 1.30 mg/dL Glucose 83 65 - 99 mg/dL Calcium 9.0 8.5 - 10.5 mg/dL eGFR (CKD-EPI)non-race dependent 87 >59 ml/min/1.73sq.m CBC auto differential Collection Time: 12/31/23 11:30 AM Result Value Ref Range White Blood Cells 8.7 4.0 - 11.0 X10E9/L RBC count 5.51 4.10 - 5.70 X10E12/L Hemoglobin 17.9 (H) 13.0 - 17.0 g/dL Hematocrit 51.0 (H) 39 - 49 % MCV 93 80 - 100 fL MCH 32.5 27 - 34 pg MCHC 35.1 32 - 36 g/dL RDW 14.4 11.5 - 15.0 % Platelets 138 (L) 150 - 450 X10E9/L MPV 8.6 7 - 12 fL % neutrophils 75.4 % % lymphocytes 12.0 % % monocytes 10.2 % % eosinophils 2.1 % % Basophils 0.3 % Neutrophils Absolute (A) 6.6 1.5 - 6.6 X10E9/L Lymphocytes Absolute 1.0 1.0 - 3.5 X10E9/L Monocytes Absolute 0.9 0 - 0.9 X10E9/L Eosinophils Absolute 0.2 0.0 - 0.4 X10E9/L Basophils Absolute 0.0 0.0 - 0.2 X10E9/L Available imaging and microbiology data has been reviewed in detail and is available in full per EMR. DISCHARGE INSTRUCTION: Disposition: Discharge to Home with homecare Condition:Good Activity: activity as tolerated Diet: Adult diet Regular Texture Adult diet Follow up: Brianna Brunner MD [facility] [facility], [address] [facility] [id number] Follow up in 1 week(s) Seamus Marino MD [address] [facility], [place] [address] [facility] [id number] Follow up in 1 week(s) Phylicia Gunderson, [address] [facility] [facility] [address] [id number] Follow up in 2 week(s) For most accurate medication list, please review the discharge medication summary. Medication List START taking these medications Instructions Last Dose Given Next Dose Due cefepime 100 gram recon soln Infuse 2 g into a venous catheter every 8 (eight) hours for 9 days. cefEPime 2,000 mg in sodium chloride 0.9 % 100 mL IVPB MINI-BAG Plus Infuse 2,000 mg into a venous catheter every 8 (eight) hours for 9 days. CHANGE how you take these medications Instructions Last Dose Given Next Dose Due fluticasone propionate 110 mcg/actuation inhaler Commonly known as: FLOVENT HFA What changed: when to take this reasons to take this Inhale 2 puffs once daily. Patient only takes when sick CONTINUE taking these medications Instructions Last Dose Given Next Dose Due albuterol 90 mcg/actuation inhaler Commonly known as: PROVENTIL HFA;VENTOLIN HFA Inhale 2 puffs every 6 (six) hours as needed for wheezing. allopurinoL 300 mg tablet Commonly known as: ZYLOPRIM TAKE ONE TABLET BY MOUTH EVERY MORNING amLODIPine 10 mg tablet Commonly known as: NORVASC take 1 tablet by mouth every morning aspirin 81 mg Take 1 tablet (81 mg total) by mouth in the morning. ciprofloxacin-dexAMETHasone otic suspension Commonly known as: CIPRODEX Administer 4 drops to the right ear in the morning and 4 drops before bedtime. Do all this for 10 days. oojbcvgo-ldod-AO-calcium &mins 9 mg iron-400 mcg tablet Commonly known as: THERAGRAN-M Take 1 tablet by mouth in the morning. omega-3 fatty acids-fish oil 300-1,000 mg capsule Take 1,200 mg by mouth daily. omeprazole 20 mg capsule Commonly known as: PriLOSEC take 2 capsules by mouth every morning simvastatin 20 mg tablet Commonly known as: ZOCOR TAKE ONE TABLET BY MOUTH EVERY MORNING traMADoL 50 mg tablet Commonly known as: ULTRAM Take 1 tablet (50 mg total) by mouth every 8 (eight) hours as needed for pain for up to 5 days. STOP taking these medications amoxicillin-pot clavulanate 875-125 mg per tablet Commonly known as: AUGMENTIN hydrocortisone-acetic acid otic solution Commonly known as: VOSOL-HC tobramycin-dexAMETHasone ophthalmic solution Commonly known as: Tobradex Where to Get Your Medications These medications were sent to [facility] [id number] [facility] [address] [facility] [address] ([facility] [address] [facility] [id number] ciprofloxacin-dexAMETHasone otic suspension traMADoL 50 mg tablet You can get these medications from any pharmacy Bring a paper prescription for each of these medications cefepime 100 gram recon soln cefEPime 2,000 mg in sodium chloride 0.9 % 100 mL IVPB MINI-BAG Plus I have spent a total of 35 minutes in the care of this patient. More than 50% of the time was spent counseling/coordinating care. Electronically signed by: Georgie Menendez MD :31 PM documented in this encounter [facility] 12-31-2023 Progress note Formatting of t his note might be different from the original. DISCHARGE PLANNING NOTE Met with patient and his . Discussed the cost of antibiotics will be 249.75/per week, they are accepting of cost. They have chosen [facility]. Awaiting scripts and midline placement to coordinate discharge to home with home care. [facility] to contact ID for script. 12:17 Received script for Cefepime and faxed to [facility], awaiting for time they can deliver and if [facility] can do SOC for tomorrow. 12:45 Second IMM given. [facility] will deliver tonight and [facility] will doa SOC in the morning. Patient and daughter notified of this and are in agreement. [facility] 12-31-2023 History of Present illness Narrative Images from the original note were not included. Division of Infectious Diseases - Progress Note [facility] [place] - Academic Team 2 During Business Hours: Please use Admitly for communication. After Hours: Please call for our answering service. Patient name: Yue Delgadillo Patient Today's Date and Time: 12/31/2023, 10:48 AM Admission Date: 12/26/2023 Primary Care Physician: Brianna Brunner MD Impression and Recommendations: Right-sided mastoiditis. The patient has improved significantly on cefepime 2 g IV every 8 hours, which is targeting Pseudomonas aeruginosa. We will continue cefepime via midline catheter as the patient and family prefer this option over transitioning to a fluoroquinolone. Right-sided otitis externa and suppurative otitis media with effusion. These infections are being treated as part of the overall regimen with cefepime. The patient is showing good progress, and we will maintain current antibiotic therapy. End of therapy is January 08. We will place a midline catheter today and print prescriptions. No objections to discharge. Subjective Interval History: Right mastoid is less painful than previously. No fevers or chills. No nausea or vomiting. No cough. No headaches. No muscle aches or pains. Objective Physical Examination: BP (!) 148/96 Pulse 78 Temp 36.4 C (97.5 F) (Oral) Resp 15 Ht 177.8 cm (5' 10 ) Wt 92.4 kg (203 lb 11.3 oz) SpO2 91% BMI 29.23 kg/m Temperature Range: Temp: 36.4 C (97.5 F) Temp Av.6 C (97.8 F) Min: 36.3 C (97.3 F) Max: 36.8 C (98.2 F) Constitutional: Awake, alert, and in no apparent distress. Eyes: Sclera anicteric, conjunctivae pink. ENT/Mouth: Right mastoid bone is much less painful than previously. Neck: Supple, without lymphadenopathy. Cardiovascular: Regular rate and rhythm without murmurs, rubs, or gallops. Respiratory: Clear to auscultation, without wheezes, rales, or rhonchi. Gastrointestinal/Abdomen: Soft, non-tender; no masses or hepatosplenomegaly. Genitourinary/Genitalia, Groin, Buttocks: Deferred. Musculoskeletal/Extremities/Back : No cyanosis, clubbing, edema, or effusions. Skin: No rash or lesions. Neurologic: Bulk and tone are normal. No atrophy is noted. Psychiatric: Appropriate affect, alert and oriented to person, place and time. Laboratory data: I have independently reviewed the following labs: Results from last 7 days Lab Units 12/30/2351312/29/2345712/28/23456 WBC X10E9/L 8.1 12.8* 7.6 HEMOGLOBIN g/dL 16.5 16.6 17.7* HEMATOCRIT % 47.1 46.7 49.6* MCV fL 92 92 92 PLATELETS X10E9/L 228 160 172 NEUTROS ABS X10E9/L 5.3 10.7* 7.0* LYMPHS ABS AUTO X10E9/L 1.6 1.0 0.5* MONOS ABS AUTO X10E9/L 0.9 1.1* 0.1 EOS ABS AUTO X10E9/L 0.1 0.0 0.0 BASOS ABS AUTO X10E9/L 0.1 0.0 0.0 Results from last 7 days Lab Units 12/30/2351312/29/2345704/24 0457 SODIUM mmol/L 138 139 136 POTASSIUM mmol/L 3.9 4.1 4.1 CHLORIDE mmol/L 103 106 103 CO2 mmol/L 25 22 21* BUN mg/dL 21 22 16 CREATININE mg/dL 0.93 0.94 0.90 CALCIUM mg/dL 9.0 9.0 9.2 Cultures: Microbiology Results Procedure Component Value Units Date/Time Blood culture [[id number]] Collected: 12/26/231317 Specimen: Blood Updated: 12/30/23 1354 Culture NO GROWTH 4 DAYS Blood culture [[id number]] Collected: 12/26/23 131 Specimen: Blood Updated: 12/30/23 1353 Culture NO GROWTH 4 DAYS Medications: allopurinoL, 300 mg, oral, Daily amLODIPine, 10 mg, oral, Daily aspirin, 81 mg, oral, Daily atorvastatin, 10 mg, oral, Daily [COMPLETED] cefepime (MAXIPIME) IV, 2,000 mg, intravenous, Once FOLLOWED BY cefepime (MAXIPIME) IV, 2,000 mg, intravenous, Q8H ciprofloxacin-dexAMETHasone, 4 drop, right ear, BID enoxaparin (LOVENOX) injection, 40 mg, subcutaneous, Daily pantoprazole, 40 mg, oral, Daily sodium chloride, 3 mL, intravenous, Q12H [facility] It is not necessary to call with new culture results. Thank you for allowing us to participate in the care of this patient. Please call with questions. Seamus Marino MD, MPH, FACP, FIDSA From 7AM-7PM: From 7AM-7PM: Please use Admitly for communication. From 7PM-7AM: Please call for our answering service. OTOLARYNGOLOGY S: Yue Delgadillo was seen and examined at bedside. He reports significant improvement in right otalgia. He denies otorrhea. He does have complaints of bilateral tinnitus and has questions regarding hearing aids. O: BP (!) 148/96 Pulse 78 Temp 36.4 C (97.5 F) (Oral) Resp 15 Ht 177.8 cm (5' 10 ) Wt 92.4 kg (203 lb 11.3 oz) SpO2 91% BMI 29.23 kg/m Constitutional: Healthy, alert, cooperative, and in no distress and normal ablility to communicate . Voice normal quality. Head/Face: Normocephalic, without obvious abnormality, salivary glands normal, atraumatic, sinuses nontender, and facial nerve intact Eyes: No gross abnormalities., EOMI, no nystagmus, and no lid ptosis Ear: RIGHT: hearing normal, external ear normal, canal abnormal due to old blood. No active purulence or fresh blood noted., and Ear tube in and open Respiration: No stridor, Normal respiratory effort. Neurologic: Grossly normal Alert Oriented X 3 Affect normal A: 1. Right-sided otitis externa 2. Right-sided suppurative otitis media with effusion P: Continue IV antibiotics per Infectious Disease. Continue Ciprodex. We discussed following up outpatient for hearing aid consultation. Will discuss with Dr. Gunderson. Lexie PEDROZA [facility] Contact through office [phone] No results found for this or any previous visit (from the past 24 hour(s)). YOVANY Morel 12/31/23 0939 Images from the original note were not included. Division of Infectious Diseases - Progress Note [facility] - Academic Team 2 During Business Hours: Please use Admitly for communication. After Hours: Please call for our answering service. Patient name: Yue Delgadillo Patient Today's Date and Time: 12/30/2023, 2:05 PM Admission Date: 12/26/2023 Primary Care Physician: Brianna Brunner MD Impression and Recommendations: Right-sided mastoiditis. Right-sided otitis externa. Right suppurative otitis media with effusion. The patient has been placed on cefepime 2 g IV every 8 hours. He has improved substantially on this regimen. This appears to be mastoiditis related to Pseudomonas aeruginosa. There are 2 options, which include cefepime via midline catheter as an outpatient, or transition to fluoroquinolone. The patient and family appear to prefer the midline catheter in maintaining the cefepime. There is a concern for the possibility of fluoroquinolone-resistant Pseudomonas aeruginosa, which we would not be able to identify in the absence of a biopsy. Subjective Interval History: The patient's ear is much less painful than previously. The patient feels that he is responding very well to the cefepime. Family is at the bedside in his pleased with his progress. The patient says that it is just an earache at this point. There is no fevers or chills. There is no nausea vomiting. There is no cough. There is no muscle aches or pains. There is no chest pain or shortness of breath. Objective Physical Examination: BP 161/83 Pulse 74 Temp 36.8 C (98.2 F) (Oral) Resp 16 Ht 177.8 cm (5' 10 ) Wt 92.5 kg (203 lb 14.8 oz) SpO2 91% BMI 29.26 kg/m Temperature Range: Temp: 36.8 C (98.2 F) Temp Av.7 C (98 F) Min: 36.4 C (97.5 F) Max: 36.8 C (98.3 F) Constitutional: Awake, alert, and in no apparent distress. Eyes: Sclera anicteric, conjunctivae pink. ENT/Mouth: Right mastoid bone is much less painful than previously. Neck: Supple, without lymphadenopathy. Cardiovascular: Regular rate and rhythm without murmurs, rubs, or gallops. Respiratory: Clear to auscultation, without wheezes, rales, or rhonchi. Gastrointestinal/Abdomen: Soft, non-tender; no masses or hepatosplenomegaly. Genitourinary/Genitalia, Groin, Buttocks: Deferred. Musculoskeletal/Extremities/Back : No cyanosis, clubbing, edema, or effusions. Skin: No rash or lesions. Neurologic: Bulk and tone are normal. No atrophy is noted. Psychiatric: Appropriate affect, alert and oriented to person, place and time. Laboratory data: I have independently reviewed the following labs: Results from last 7 days Lab Units 12/30/23 0514 12/29/23 0458 12/28/23 0457 WBC X10E9/L 8.1 12.8* 7.6 HEMOGLOBIN g/dL 16.5 16.6 17.7* HEMATOCRIT % 47.1 46.7 49.6* MCV fL 92 92 92 PLATELETS X10E9/L 228 160 172 NEUTROS ABS X10E9/L 5.3 10.7* 7.0* LYMPHS ABS AUTO X10E9/L 1.6 1.0 0.5* MONOS ABS AUTO X10E9/L 0.9 1.1* 0.1 EOS ABS AUTO X10E9/L 0.1 0.0 0.0 BASOS ABS AUTO X10E9/L 0.1 0.0 0.0 Results from last 7 days Lab Units 12/30/23 0514 12/29/23 0458 12/28/23 0457 SODIUM mmol/L 138 139 136 POTASSIUM mmol/L 3.9 4.1 4.1 CHLORIDE mmol/L 103 106 103 CO2 mmol/L 25 22 21* BUN mg/dL 21 22 16 CREATININE mg/dL 0.93 0.94 0.90 CALCIUM mg/dL 9.0 9.0 9.2 Imaging Studies: I have personally reviewed the CT temporal bone, and my interpretation is as follows: Constellation of findings for which right otomastoiditis are considered, in the appropriate clinical context. Cultures: Microbiology Results Procedure Component Value Units Date/Time Blood culture [[id number]] Collected: 12/26/231317 Specimen: Blood Updated: 12/30/231353 Culture NO GROWTH 4 DAYS Blood culture [[id number]] Collected: 12/26/231317 Specimen: Blood Updated: 12/30/23 135 Culture NO GROWTH 4 DAYS Medications: allopurinoL, 300 mg, oral, Daily amLODIPine, 10 mg, oral, Daily aspirin, 81 mg, oral, Daily atorvastatin, 10 mg, oral, Daily [COMPLETED] cefepime (MAXIPIME) IV, 2,000 mg, intravenous, Once FOLLOWED BY cefepime (MAXIPIME) IV, 2,000 mg, intravenous, Q8H ciprofloxacin-dexAMETHasone, 4 drop, right ear, BID enoxaparin (LOVENOX) injection, 40 mg, subcutaneous, Daily pantoprazole, 40 mg, oral, Daily sodium chloride, 3 mL, intravenous, Q12H [facility] It is not necessary to call with new culture results. Thank you for allowing us to participate in the care of this patient. Please call with questions. Seamus Marino MD, MPH, FACP, FIDSA From 7AM-7PM: From 7AM-7PM: Please use Admitly for communication. From 7PM-7AM: Please call for our answering service. 12/30/2023 Patient Name: Yue Delgadillo : 1950 Problem List: Principal Problem: Mastoiditis of right side Active Problems: Essential hypertension Asthma in adult, mild persistent, uncomplicated Hyperlipidemia Assessment and Plan: Right otomastoiditis CT neck and CT temporal bones noted Patient failed several courses of antibiotic outpatient (augmentin, steroid and antibiotics ear drops) Was also on unasyn inpatient. No improvement -ENT and ID following, unasyn changed to cefepime. -Also on Ciprodex drops, continue -Per ID, consider biopsy of mastoid bone if the patient does not improve. Per ENT, if required, he would require mastoidectomy with biopsy. This can be arranged if further required by ID. For now, symptomatic the improving -Continue Pain control, now on Tramadol and scheduled tylenol -No leukocytosis, WBC 8.1 Essential hypertension Continue home Amlodipine Monitor BP Hyperlipidemia, continue statin Gout, continue allopurinol Asthma, not in exacerbation, Only uses Flovent when needed GERD, Continue home prilosec DVT prophylaxis: lovenox GI prophylaxis: Pantoprazole Code status: Full code Discharge planning: Will be discharged with home health for IV antibiotics to be continued at home. Likely tomorrow when IV infusion can be arranged. SUBJECTIVE: Chief complaints: Right ear pain Patient seen and evaluated at bedside today. Was able to sleep today. Pain better controlled. Able to take p.o. intake. No nausea or vomiting. Ambulating well. No complaints at this time. Review of Systems: All 12 systems were negative unless mentioned in the present history. OBJECTIVE: Exam: BP (!) 149/97 Pulse 90 Temp 36.8 C (98.3 F) (Oral) Resp 18 Ht 177.8 cm (5' 10 ) Wt 92.5 kg (203 lb 14.8 oz) SpO2 92% BMI 29.26 kg/m Intake/Output Summary (Last 24 hours) at 12/30/2023 1253 Last data filed at 12/29/2023 1331 Gross per 24 hour Intake 100 ml Output -- Net 100 ml General appearance: Awake, alert and oriented, not in acute distress Head: Normocephalic, atraumatic, no conjunctival injection Lungs: no accessory muscle, clear to auscultation bilaterally, no crackles or wheezes Heart normal S1-S2, no audible murmurs, no gallops or rubs Chest wall: No tenderness Abdomen: Soft, nondistended, nontender Extremities: No edema, no cyanosis Labs: Recent Results (from the past 24 hour(s)) CBC auto differential Collection Time: 12/30/23 5:14 AM Result Value Ref Range White Blood Cells 8.1 4.0 - 11.0 X10E9/L RBC count 5.10 4.10 - 5.70 X10E12/L Hemoglobin 16.5 13.0 - 17.0 g/dL Hematocrit 47.1 39 - 49 % MCV 92 80 - 100 fL MCH 32.3 27 - 34 pg MCHC 35.0 32 - 36 g/dL RDW 14.7 11.5 - 15.0 % Platelets 228 150 - 450 X10E9/L MPV 10.5 7 - 12 fL % neutrophils 66.4 % % lymphocytes 19.8 % % monocytes 11.6 % % eosinophils 1.5 % % Basophils 0.7 % Neutrophils Absolute (A) 5.3 1.5 - 6.6 X10E9/L Lymphocytes Absolute 1.6 1.0 - 3.5 X10E9/L Monocytes Absolute 0.9 0 - 0.9 X10E9/L Eosinophils Absolute 0.1 0.0 - 0.4 X10E9/L Basophils Absolute 0.1 0.0 - 0.2 X10E9/L Basic Metabolic Panel Collection Time: 12/30/23 5:14 AM Result Value Ref Range Sodium 138 134 - 146 mmol/L Potassium, Bld 3.9 3.5 - 5.0 mmol/L Chloride 103 98 - 109 mmol/L CO2 25 22 - 32 mmol/L Anion gap 10 5 - 15 mmol/L BUN 21 5 - 27 mg/dL Creatinine 0.93 0.60 - 1.30 mg/dL Glucose 83 65 - 99 mg/dL Calcium 9.0 8.5 - 10.5 mg/dL eGFR (CKD-EPI)non-race dependent 87 >59 ml/min/1.73sq.m Available imaging and microbiology data has been reviewed in detail and is available in full per EMR. This note is created with the assistance of a speech-recognition program. While intending to generate a document that actually reflects the content of the visit, no guarantees can be provided that every mistake has been identified and corrected by editing. 12/29/2023 Patient Name: Yue Delgadillo : 1950 Problem List: Principal Problem: Mastoiditis of right side Active Problems: Essential hypertension Asthma in adult, mild persistent, uncomplicated Hyperlipidemia Assessment and Plan: Right otomastoiditis CT neck and CT temporal bones noted Patient failed several courses of antibiotic outpatient (augmentin, steroid and antibiotics ear drops) Was also on unasyn inpatient. No improvement -ENT and ID following, unasyn changed to cefepime. Continue Ciprodex drops -Per ID, consider biopsy of mastoid bone if the patient does not improve. -Continue Pain control, now on Tramadol and scheduled tylenol -Monitor leukocytosis, WBC 12.8 Essential hypertension Continue home Amlodipine Monitor BP Hyperlipidemia, continue statin Gout, continue allopurinol Asthma, not in exacerbation, Only uses Flovent when needed GERD, Continue home prilosec DVT prophylaxis: lovenox GI prophylaxis: Pantoprazole Code status: Full code Discharge planning: Pending improvement in mastoiditis -plans discussed with RN SUBJECTIVE: Chief complaints: Right ear pain Patient seen and evaluated at bedside today. Pain improving. No nausea. No fevers.Good oral intake. No nausea or vomiting. Review of Systems: All 12 systems were negative unless mentioned in the present history. OBJECTIVE: Exam: BP 132/87 Pulse 68 Temp 36.7 C (98 F) (Oral) Resp 16 Ht 177.8 cm (5' 10 ) Wt 93.8 kg (206 lb 12.7 oz) SpO2 91% BMI 29.67 kg/m Intake/Output Summary (Last 24 hours) at 12/29/2023 1348 Last data filed at 12/29/2023 1331 Gross per 24 hour Intake 518 ml Output -- Net 518 ml General appearance: Awake, alert and oriented, not in acute distress Head: Normocephalic, atraumatic, no conjunctival injection Lungs: no accessory muscle, clear to auscultation bilaterally, no crackles or wheezes Heart normal S1-S2, no audible murmurs, no gallops or rubs Chest wall: No tenderness Abdomen: Soft, nondistended, nontender Extremities: No edema, no cyanosis Labs: Recent Results (from the past 24 hour(s)) Basic Metabolic Panel Collection Time: 12/29/23 4:58 AM Result Value Ref Range Sodium 139 134 - 146 mmol/L Potassium, Bld 4.1 3.5 - 5.0 mmol/L Chloride 106 98 - 109 mmol/L CO2 22 22 - 32 mmol/L Anion gap 11 5 - 15 mmol/L BUN 22 5 - 27 mg/dL Creatinine 0.94 0.60 - 1.30 mg/dL Glucose 98 65 - 99 mg/dL Calcium 9.0 8.5 - 10.5 mg/dL eGFR (CKD-EPI)non-race dependent 86 >59 ml/min/1.73sq.m CBC auto differential Collection Time: 12/29/23 4:58 AM Result Value Ref Range White Blood Cells 12.8 (H) 4.0 - 11.0 X10E9/L RBC count 5.07 4.10 - 5.70 X10E12/L Hemoglobin 16.6 13.0 - 17.0 g/dL Hematocrit 46.7 39 - 49 % MCV 92 80 - 100 fL MCH 32.7 27 - 34 pg MCHC 35.5 32 - 36 g/dL RDW 14.5 11.5 - 15.0 % Platelets 160 150 - 450 X10E9/L MPV 8.1 7 - 12 fL % neutrophils 83.2 % % lymphocytes 7.9 % % monocytes 8.6 % % eosinophils 0.1 % % Basophils 0.2 % Neutrophils Absolute (A) 10.7 (H) 1.5 - 6.6 X10E9/L Lymphocytes Absolute 1.0 1.0 - 3.5 X10E9/L Monocytes Absolute 1.1 (H) 0 - 0.9 X10E9/L Eosinophils Absolute 0.0 0.0 - 0.4 X10E9/L Basophils Absolute 0.0 0.0 - 0.2 X10E9/L Available imaging and microbiology data has been reviewed in detail and is available in full per EMR. This note is created with the assistance of a speech-recognition program. While intending to generate a document that actually reflects the content of the visit, no guarantees can be provided that every mistake has been identified and corrected by editing. Images from the original note were not included. Otolaryngology Head and Neck Surgery Patient seen and examined. Patient is much improved today. He states he went for a full 12 hours without having any pain. He had a tramadol about 5 hours ago and still is without any pain. He denies any drainage from the ears. He states that the heartbeat sound that he did have an his right ear previously is now resolved. He occasionally gets some popping and crackling sounds in the right ear but otherwise his hearing is essentially back to baseline. He is up and ambulating and feeling much improved. Patient also states that the discomfort he was having behind and below the ear is now gone. Vitals: 12/28/23 1947 12/29/23 0012 12/29/23 0500 12/29/23 0754 BP: 162/90 150/88 (!) 153/100 (!) 139/98 Comment: RN notified Pulse: 85 78 70 65 Resp: 16 18 18 17 Temp: 36.5 C (97.7 F) 36.7 C (98 F) 36.3 C (97.4 F) 36.5 C (97.7 F) TempSrc: Oral Oral Oral Oral SpO2: 92% 92% 91% Weight: Height: Data Reviewed: Component Ref Range & Units 12/29/23 0458 12/28/23 0457 12/27/23 0432 12/26/23 1318 05/24/23 1131 06/08/20 2245 08/11/18 0955 White Blood Cells 4.0 - 11.0 X10E9/L 12.8 High 7.6 8.5 9.1 9.3 8.6 6.8 R RBC count 4.10 - 5.70 X10E12/L 5.07 5.42 5.43 6.05 High 5.80 High 5.54 5.42 R Hemoglobin 13.0 - 17.0 g/dL 16.6 17.7 High 17.6 High 19.3 High 18.2 High 17.2 High 17.0 R Hematocrit 39 - 49 % 46.7 49.6 High 50.3 High 55.4 High 52.9 High 50.3 High 49.7 R MCV 80 - 100 fL 92 92 93 92 91 91 92 R MCH 27 - 34 pg 32.7 32.7 32.5 31.9 31.5 31.1 31.4 R MCHC 32 - 36 g/dL 35.5 35.8 35.1 34.9 34.5 34.3 34.3 R RDW 11.5 - 15.0 % 14.5 14.5 14.6 14.8 14.1 14.3 14.2 R Platelets 150 - 450 X10E9/L 160 172 164 180 174 168 139 Low MPV 7 - 12 fL 8.1 8.1 8.1 8.1 8.8 8.4 8.9 % neutrophils % 83.2 91.9 72.5 75.0 76.0 67.0 75.4 % lymphocytes % 7.9 6.4 13.9 12.1 11.8 19.7 13.8 % monocytes % 8.6 1.4 9.6 10.0 7.8 8.0 7.4 % eosinophils % 0.1 0.1 3.1 2.3 3.4 4.4 2.7 % Basophils % 0.2 0.2 0.9 0.6 1.0 0.9 0.7 Neutrophils Absolute (A) 1.5 - 6.6 X10E9/L 10.7 High 7.0 High 6.1 6.8 High 7.1 High 5.8 5.1 Lymphocytes Absolute 1.0 - 3.5 X10E9/L 1.0 0.5 Low 1.2 1.1 1.1 1.7 0.9 Low Monocytes Absolute 0 - 0.9 X10E9/L 1.1 High 0.1 0.8 0.9 0.7 0.7 0.5 Eosinophils Absolute 0.0 - 0.4 X10E9/L 0.0 0.0 0.3 0.2 Physical Exam: Constitutional: Healthy, alert, cooperative, and in no distress and normal ablility to communicate . Voice normal quality. Head/Face: Normocephalic, without obvious abnormality, salivary glands normal, atraumatic, sinuses nontender, and facial nerve intact Eyes: No gross abnormalities., EOMI, no nystagmus, and no lid ptosis Ear: RIGHT: hearing normal, external ear normal, canal abnormal due to moisture from his recent drop and old blood. No active purulence or fresh blood noted, and Ear tube in and open TMJ: no pain, crepitus, or trismus Neck:normal, supple, no adenopathy, thyroid normal in size, no nodules or tenderness, no neck masses palpable, and carotids normal Heart: Regular rate Respiration: No stridor, Normal respiratory effort. Neurologic: Grossly normal Alert Oriented X 3 Affect normal Cranial nerves 2 -12 grossly intact A: 1. Right-sided otitis externa 2. Right-sided suppurative otitis media with effusion P: 1. Continue IV antibiotics. Will defer to Infectious Disease on outpatient antibiotic recommendations. 2. Continue Ciprodex 3. We did discuss the subject of biopsy as it was brought up by Infectious Disease again yesterday. We discussed that as he has shown significant clinical improvement, I do not think this needs to be performed at this time. There is nothing within the canal itself to biopsy, this would require a mastoidectomy with biopsy. If Infectious Disease needs a biopsy for further recommendations, I would be happy to discuss this with them. Phylicia Gunderson DO Otolaryngology Head and Neck Surgery 12/28/2023 Patient Name: Yue Delgadillo : 1950 Problem List: Principal Problem: Mastoiditis of right side Assessment and Plan: Right otomastoiditis CT neck and CT temporal bones noted Patient failed several courses of antibiotic outpatient (augmentin, steroid and antibiotics ear drops) Was also on unasyn inpatient. No improvement -ENT and ID following, unasyn changes to cefepime. -Also on Ciprodex drops, continue -Per ID, consider biopsy of mastoid bone if the patient does not improve. -Continue Pain control, now on Tramadol and scheduled tylenol Essential hypertension Continue home Amlodipine Monitor BP Hyperlipidemia, continue statin Gout, continue allopurinol Asthma, not in exacerbation, Only uses Flovent when needed GERD, Continue home prilosec DVT prophylaxis: lovenox GI prophylaxis: Pantoprazole Code status: Full code Discharge planning: Pending improvement in mastoiditis -plans discussed with RN SUBJECTIVE: Chief complaints: Right ear pain Patient seen and evaluated at bedside today. Ear pain is slightly improved since yesterday. Headache has also improved. Sharp stinging pains are all improving. Good oral intake. No nausea or vomiting. Review of Systems: All 12 systems were negative unless mentioned in the present history. OBJECTIVE: Exam: BP 173/84 Pulse 92 Temp 36.6 C (97.9 F) (Oral) Resp 18 Ht 177.8 cm (5' 10 ) Wt 93.8 kg (206 lb 12.7 oz) SpO2 90% BMI 29.67 kg/m Intake/Output Summary (Last 24 hours) at 12/28/2023 1416 Last data filed at 12/28/2023 0600 Gross per 24 hour Intake 1208 ml Output -- Net 1208 ml General appearance: Awake, alert and oriented, not in acute distress Head: Normocephalic, atraumatic, no conjunctival injection Lungs: no accessory muscle, clear to auscultation bilaterally, no crackles or wheezes Heart normal S1-S2, no audible murmurs, no gallops or rubs Chest wall: No tenderness Abdomen: Soft, nondistended, nontender Extremities: No edema, no cyanosis Labs: Recent Results (from the past 24 hour(s)) Basic Metabolic Panel Collection Time: 12/28/23 4:57 AM Result Value Ref Range Sodium 136 134 - 146 mmol/L Potassium, Bld 4.1 3.5 - 5.0 mmol/L Chloride 103 98 - 109 mmol/L CO2 21 (L) 22 - 32 mmol/L Anion gap 12 5 - 15 mmol/L BUN 16 5 - 27 mg/dL Creatinine 0.90 0.60 - 1.30 mg/dL Glucose 127 (H) 65 - 99 mg/dL Calcium 9.2 8.5 - 10.5 mg/dL eGFR (CKD-EPI)non-race dependent >90 >59 ml/min/1.73sq.m CBC auto differential Collection Time: 12/28/23 4:57 AM Result Value Ref Range White Blood Cells 7.6 4.0 - 11.0 X10E9/L RBC count 5.42 4.10 - 5.70 X10E12/L Hemoglobin 17.7 (H) 13.0 - 17.0 g/dL Hematocrit 49.6 (H) 39 - 49 % MCV 92 80 - 100 fL MCH 32.7 27 - 34 pg MCHC 35.8 32 - 36 g/dL RDW 14.5 11.5 - 15.0 % Platelets 172 150 - 450 X10E9/L MPV 8.1 7 - 12 fL % neutrophils 91.9 % % lymphocytes 6.4 % % monocytes 1.4 % % eosinophils 0.1 % % Basophils 0.2 % Neutrophils Absolute (A) 7.0 (H) 1.5 - 6.6 X10E9/L Lymphocytes Absolute 0.5 (L) 1.0 - 3.5 X10E9/L Monocytes Absolute 0.1 0 - 0.9 X10E9/L Eosinophils Absolute 0.0 0.0 - 0.4 X10E9/L Basophils Absolute 0.0 0.0 - 0.2 X10E9/L Available imaging and microbiology data has been reviewed in detail and is available in full per EMR. This note is created with the assistance of a speech-recognition program. While intending to generate a document that actually reflects the content of the visit, no guarantees can be provided that every mistake has been identified and corrected by editing. Images from the original note were not included. Division of Infectious Diseases - Progress Note [facility] - Academic Team 2 During Business Hours: Please use Admitly for communication. After Hours: Please call for our answering service. Patient name: Yue Delgadillo Patient Today's Date and Time: 12/28/2023, 10:43 AM Admission Date: 12/26/2023 Primary Care Physician: Brianna Brunner MD Impression and Recommendations: Right-sided mastoiditis. Right-sided otitis externa. Right suppurative otitis media with effusion. The patient has been placed on cefepime 2 g IV every 8 hours. Consider biopsy of the mastoid bone the patient does not improve. We will treat as mastoiditis with Pseudomonas aeruginosa infection. Monitor course of the weekend. If he does improve, may consider fluoroquinolones. The issue without a biopsy is that we do not know if this is fluoroquinolone susceptible isolate. We will discuss with our otolaryngology colleagues. Current plan is for cefepime for several days followed by ciprofloxacin levofloxacin as an outpatient. Subjective Interval History: Ear is still painful as is the mastoid bone. No fevers or chills. No pain. No nausea vomiting. No cough. No muscle aches or pains. No chest pain no shortness of breath. Objective Physical Examination: BP 160/82 Pulse 95 Temp 36.6 C (97.9 F) (Oral) Resp 18 Ht 177.8 cm (5' 10 ) Wt 93.8 kg (206 lb 12.7 oz) SpO2 90% BMI 29.67 kg/m Temperature Range: Temp: 36.6 C (97.9 F) Temp Av.5 C (97.7 F) Min: 36.3 C (97.3 F) Max: 36.7 C (98.1 F) Constitutional: Awake, alert, and in no apparent distress. Eyes: Sclera anicteric, conjunctivae pink. ENT/Mouth: Right mastoid bone is still painful. Neck: Supple, without lymphadenopathy. Cardiovascular: Regular rate and rhythm without murmurs, rubs, or gallops. Respiratory: Clear to auscultation, without wheezes, rales, or rhonchi. Gastrointestinal/Abdomen: Soft, non-tender; no masses or hepatosplenomegaly. Genitourinary/Genitalia, Groin, Buttocks: Deferred. Musculoskeletal/Extremities/Back : No cyanosis, clubbing, edema, or effusions. Skin: No rash or lesions. Neurologic: Bulk and tone are normal. No atrophy is noted. Psychiatric: Appropriate affect, alert and oriented to person, place and time. Laboratory data: I have independently reviewed the following labs: Results from last 7 days Lab Units 12/28/2345612/27/2343112/26/23 1318 WBC X10E9/L 7.6 8.5 9.1 HEMOGLOBIN g/dL 17.7* 17.6* 19.3* HEMATOCRIT % 49.6* 50.3* 55.4* MCV fL 92 93 92 PLATELETS X10E9/L 172 164 180 NEUTROS ABS X10E9/L 7.0* 6.1 6.8* LYMPHS ABS AUTO X10E9/L 0.5* 1.2 1.1 MONOS ABS AUTO X10E9/L 0.1 0.8 0.9 EOS ABS AUTO X10E9/L 0.0 0.3 0.2 BASOS ABS AUTO X10E9/L 0.0 0.1 0.1 Results from last 7 days Lab Units 12/28/2345612/27/23 0432 12/26/23 1318 SODIUM mmol/L 136 139 138 POTASSIUM mmol/L 4.1 3.9 4.2 CHLORIDE mmol/L 103 103 99 CO2 mmol/L 21* 27 26 BUN mg/dL 16 14 13 CREATININE mg/dL 0.90 0.88 0.91 CALCIUM mg/dL 9.2 9.0 9.6 Imaging Studies: I have personally reviewed the CT temporal bone, and my interpretation is as follows: Constellation of findings for which right otomastoiditis are considered, in the appropriate clinical context. Cultures: Microbiology Results Procedure Component Value Units Date/Time Blood culture [[id number]] Collected: 12/26/231317 Specimen: Blood Updated: 12/27/23 135 Culture NO GROWTH 1 DAY Blood culture [[id number]] Collected: 12/26/231317 Specimen: Blood Updated: 12/27/23 135 Culture NO GROWTH 1 DAY Medications: allopurinoL, 300 mg, oral, Daily amLODIPine, 10 mg, oral, Daily aspirin, 81 mg, oral, Daily atorvastatin, 10 mg, oral, Daily [COMPLETED] cefepime (MAXIPIME) IV, 2,000 mg, intravenous, Once FOLLOWED BY cefepime (MAXIPIME) IV, 2,000 mg, intravenous, Q8H ciprofloxacin-dexAMETHasone, 4 drop, right ear, BID pantoprazole, 40 mg, oral, Daily sodium chloride, 3 mL, intravenous, Q12H VENESSA It is not necessary to call with new culture results. Thank you for allowing us to participate in the care of this patient. Please call with questions. Seamus Marino MD, MPH, FACP, FIDSA From 7AM-7PM: From 7AM-7PM: Please use Admitly for communication. From 7PM-7AM: Please call for our answering service. OTOLARYNGOLOGY S: Yue Delgadillo was seen and examined lying on left side in bed, Ciprodex drops were administered just prior to my arrival. Now on IV cefepime per ID recommendations. He has also been given 3 doses of IV Decadron. He notes some improvement. He denies continued sharp, stabbing right ear pain with reduced fullness. He feels that his hearing has also slightly improved. He denies otorrhea. O: BP 160/82 Pulse 95 Temp 36.6 C (97.9 F) (Oral) Resp 18 Ht 177.8 cm (5' 10 ) Wt 93.8 kg (206 lb 12.7 oz) SpO2 90% BMI 29.67 kg/m Constitutional: Healthy, Alert, Cooperative, and In No Apparent Distress, communicating normally Voice: normal quality and volume Head/Face: Normocephalic, without obvious abnormalities present, salivary glands normal, Atraumatic, Sinuses nontender without overlying facial swelling or deformity, and facial nerve intact bilaterally, decreased tenderness to palpation along the angle of the right mandible. Eyes: No gross abnormalities., Gaze Alignment Straight, No spontaneous nystagmus at rest, PERRL, EOMI, and No visible upper eyelid ptosis Ear: RIGHT: Auricle: normal size, shape, without obvious skin lesions, Normal hearing in exam room, No visible erythema or swelling overlying mastoid region., trace blood present in canal, wet white debris deep in canal just anterior to TM, fluid pooled deep in the canal obscuring vision of the TM consistent with recent ear drop administration., PE tube was not visualized. TMJ: no pain, crepitus, or trismus Neck: normal, supple, no adenopathy, thyroid normal in size, no nodules or tenderness, and no neck masses palpable mildly tender to palpable on right at level 2A Respiration: No stridor, Normal respiratory effort. Chest expands symmetrically. A: 1. Right-sided otitis externa 2. Right-sided suppurative otitis media with effusion P: 1. Continue IV antibiotics and steroids, appreciate ID recommendations 2. Continue Ciprodex 3. ENT will continue to follow Will discuss with [facility] Contact through office [phone] Recent Results (from the past 24 hour(s)) Basic Metabolic Panel Collection Time: 12/28/23 4:57 AM Result Value Ref Range Sodium 136 134 - 146 mmol/L Potassium, Bld 4.1 3.5 - 5.0 mmol/L Chloride 103 98 - 109 mmol/L CO2 21 (L) 22 - 32 mmol/L Anion gap 12 5 - 15 mmol/L BUN 16 5 - 27 mg/dL Creatinine 0.90 0.60 - 1.30 mg/dL Glucose 127 (H) 65 - 99 mg/dL Calcium 9.2 8.5 - 10.5 mg/dL eGFR (CKD-EPI)non-race dependent >90 >59 ml/min/1.73sq.m CBC auto differential Collection Time: 12/28/23 4:57 AM Result Value Ref Range White Blood Cells 7.6 4.0 - 11.0 X10E9/L RBC count 5.42 4.10 - 5.70 X10E12/L Hemoglobin 17.7 (H) 13.0 - 17.0 g/dL Hematocrit 49.6 (H) 39 - 49 % MCV 92 80 - 100 fL MCH 32.7 27 - 34 pg MCHC 35.8 32 - 36 g/dL RDW 14.5 11.5 - 15.0 % Platelets 172 150 - 450 X10E9/L MPV 8.1 7 - 12 fL % neutrophils 91.9 % % lymphocytes 6.4 % % monocytes 1.4 % % eosinophils 0.1 % % Basophils 0.2 % Neutrophils Absolute (A) 7.0 (H) 1.5 - 6.6 X10E9/L Lymphocytes Absolute 0.5 (L) 1.0 - 3.5 X10E9/L Monocytes Absolute 0.1 0 - 0.9 X10E9/L Eosinophils Absolute 0.0 0.0 - 0.4 X10E9/L Basophils Absolute 0.0 0.0 - 0.2 X10E9/L Mag Miller PA-C 12/28/23 0922 I, Phylicia Gunderson DO, personally performed the face to face diagnostic evaluation on this patient. My findings are as follows: Patient seen and examined. He is sleeping. After waking he states he is feeling much better. He no longer can hear his heartbeat in the right ear. We discussed that Infectious Disease is considering a PICC line for IV therapy given that we have had difficulty finding a drug to cover whatever bacterial infection he has. I would recommend following with their recommendations on IV therapy. Continue eardrops for 1 week. We can see him back as an outpatient to recheck the ear, recheck hearing, and monitor tube. Phylicia Gunderson DO Otolaryngology Head and Neck Surgery . [facility] Department of Pharmacy Pharmacy-Physician Communication Pt name: Yue Cordovaford Room: [facility]/[address] Trey Lundy MD Your patient is currently taking the medication Cefepime, which is primarily excreted renally. From your patient s renal function: Results from last 7 days Lab Units 12/27/23 0432 CREATININE mg/dL 0.88 Estimated Creatinine Clearance: 78.3 mL/min (by C-G formula based on SCr of 0.88 mg/dL). Indication: otomastoiditis Cefepime regimen was adjusted per [facility] policy Thank you for your consideration. If we can offer more assistance, please fee free to call us at [phone]. Gavin Easton, PharmD, [facility] Images from the original note were not included. [facility] 12/27/2023 Patient Name: Yue Delgadillo : 1950 Problem List: Principal Problem: Mastoiditis of right side Assessment and Plan: Right otomastoiditis Continue Ciprodex drops Continue IV Unasyn CT suggestive of right otomastoiditis. Mucosal thickening in left maxillary sinus raised question of possible fungal infection, though patient's pain is located in right maxillary sinus, right mandible/lateral face and right ear ENT following Consult infectious disease Pain control with Tramadol and scheduled tylenol Essential hypertension Continue home Amlodipine Asthma, not in exacerbation Only uses Flovent when needed GERD Continue home prilosec DVT prophylaxis Doug score of 2 for acute infection and age >70, pharmacologic prophylaxis not indicated, SCDs only. Patient is ambulating in observation unit Scheduled Medications: acetaminophen, 1,000 mg, oral, Q8H allopurinoL, 300 mg, oral, Daily amLODIPine, 10 mg, oral, Daily ampicillin-sulbactam (UNASYN) IV, 3,000 mg, intravenous, Q6H aspirin, 81 mg, oral, Daily atorvastatin, 10 mg, oral, Daily ciprofloxacin-dexAMETHasone, 4 drop, right ear, BID pantoprazole, 40 mg, oral, Daily sodium chloride, 3 mL, intravenous, Q12H VENESSA Continuous Infusions: PRN Medications: dextrose dextrose 5 % in water dextrose 50 % in water (D50W) flu vacc [id number] 6mos up(PF) glucagon (human recombinant) sodium chloride sodium chloride sodium chloride sodium chloride 0.9 % traMADoL Subjective: Patient denies significant change. Continues to experience pain in right ear and face controlled with tylenol and tramadol. Family present bedside. Objective: Vitals: Temp: [36.2 C (97.2 F)-36.8 C (98.2 F)] 36.5 C (97.7 F) Pulse: [59-78] 65 Resp: [14-18] 17 BP: (133-168)/(82-102) 148/93 SpO2: [91 %-97 %] 91 % O2 Device: None (Room air) O2 Flow Rate (L/min): [0 L/min] 0 L/min No intake or output data in the 24 hours ending 12/27/23 1012 Physical Exam Vitals reviewed. Constitutional: General: He is not in acute distress. Appearance: He is not toxic-appearing. HENT: Head: Normocephalic. Ears: Comments: Dried blood and scant fresh blood present in right ear canal. Eyes: General: Right eye: No discharge. Left eye: No discharge. Extraocular Movements: Extraocular movements intact. Cardiovascular: Rate and Rhythm: Normal rate. Heart sounds: No murmur heard. Pulmonary: Effort: Pulmonary effort is normal. Breath sounds: No wheezing or rales. Abdominal: General: Abdomen is flat. There is no distension. Musculoskeletal: Right lower leg: No edema. Left lower leg: No edema. Skin: General: Skin is warm. Findings: No rash. Neurological: Mental Status: He is alert. Mental status is at baseline. Psychiatric: Mood and Affect: Mood normal. Behavior: Behavior normal. Thought Content: Thought content normal. Labs: Recent Results (from the past 24 hour(s)) CBC auto differential Collection Time: 12/26/23 1:18 PM Result Value Ref Range White Blood Cells 9.1 4.0 - 11.0 X10E9/L RBC count 6.05 (H) 4.10 - 5.70 X10E12/L Hemoglobin 19.3 (H) 13.0 - 17.0 g/dL Hematocrit 55.4 (H) 39 - 49 % MCV 92 80 - 100 fL MCH 31.9 27 - 34 pg MCHC 34.9 32 - 36 g/dL RDW 14.8 11.5 - 15.0 % Platelets 180 150 - 450 X10E9/L MPV 8.1 7 - 12 fL % neutrophils 75.0 % % lymphocytes 12.1 % % monocytes 10.0 % % eosinophils 2.3 % % Basophils 0.6 % Neutrophils Absolute (A) 6.8 (H) 1.5 - 6.6 X10E9/L Lymphocytes Absolute 1.1 1.0 - 3.5 X10E9/L Monocytes Absolute 0.9 0 - 0.9 X10E9/L Eosinophils Absolute 0.2 0.0 - 0.4 X10E9/L Basophils Absolute 0.1 0.0 - 0.2 X10E9/L Basic Metabolic Panel Collection Time: 12/26/23 1:18 PM Result Value Ref Range Sodium 138 134 - 146 mmol/L Potassium, Bld 4.2 3.5 - 5.0 mmol/L Chloride 99 98 - 109 mmol/L CO2 26 22 - 32 mmol/L Anion gap 13 5 - 15 mmol/L BUN 13 5 - 27 mg/dL Creatinine 0.91 0.60 - 1.30 mg/dL Glucose 88 65 - 99 mg/dL Calcium 9.6 8.5 - 10.5 mg/dL eGFR (CKD-EPI)non-race dependent 90 >59 ml/min/1.73sq.m Blood culture Collection Time: 12/26/23 1:18 PM Specimen: Blood LEFT~ANTECUBITAL Result Value Ref Range Culture NO GROWTH <24 HRS Blood culture Collection Time: 12/26/23 1:18 PM Specimen: Blood RIGHT~ANTECUBITAL Result Value Ref Range Culture NO GROWTH <24 HRS Basic Metabolic Panel Collection Time: 12/27/23 4:32 AM Result Value Ref Range Sodium 139 134 - 146 mmol/L Potassium, Bld 3.9 3.5 - 5.0 mmol/L Chloride 103 98 - 109 mmol/L CO2 27 22 - 32 mmol/L Anion gap 9 5 - 15 mmol/L BUN 14 5 - 27 mg/dL Creatinine 0.88 0.60 - 1.30 mg/dL Glucose 81 65 - 99 mg/dL Calcium 9.0 8.5 - 10.5 mg/dL eGFR (CKD-EPI)non-race dependent >90 >59 ml/min/1.73sq.m CBC auto differential Collection Time: 12/27/23 4:32 AM Result Value Ref Range White Blood Cells 8.5 4.0 - 11.0 X10E9/L RBC count 5.43 4.10 - 5.70 X10E12/L Hemoglobin 17.6 (H) 13.0 - 17.0 g/dL Hematocrit 50.3 (H) 39 - 49 % MCV 93 80 - 100 fL MCH 32.5 27 - 34 pg MCHC 35.1 32 - 36 g/dL RDW 14.6 11.5 - 15.0 % Platelets 164 150 - 450 X10E9/L MPV 8.1 7 - 12 fL % neutrophils 72.5 % % lymphocytes 13.9 % % monocytes 9.6 % % eosinophils 3.1 % % Basophils 0.9 % Neutrophils Absolute (A) 6.1 1.5 - 6.6 X10E9/L Lymphocytes Absolute 1.2 1.0 - 3.5 X10E9/L Monocytes Absolute 0.8 0 - 0.9 X10E9/L Eosinophils Absolute 0.3 0.0 - 0.4 X10E9/L Basophils Absolute 0.1 0.0 - 0.2 X10E9/L Images: CT temporal bones with contrast Result Date: 12/26/2023 CT TEMPORAL BONES W CONT: 12/26/2023 PROVIDED HISTORY: * 73 years old Male * Mastoiditis COMPARISON: CT neck 01/13/2024, MRI brain 05/15/2017 TECHNIQUE: 1. High-resolution temporal bone CT with multiplanar reformats. Examination performed following the uneventful intravenous administration of contrast. 2. All CT scans at this facility use dose modulation, iterative reconstruction, and/or weight based dosing when appropriate to reduce radiation dose to as low as reasonably achievable. FINDINGS: RIGHT: Soft tissue thickening of the external auditory canal extending to the level of the tympanic membrane, without evidence of significant erosions of the osseous external auditory canal. Near complete opacification of the middle ear cavity with surrounding of the otherwise patent ossicular chain. Opacification extends into the aditus ad antrum with associated moderate opacification of the right mastoid air cells. Mastoid air cell septae appear grossly intact. Mastoid process mejia appear intact. Opacification extends to the round window niche. Adjacent distal transverse and sigmoid sinuses appear patent within limitations of technique. No evidence of adjacent peripherally enhancing/drainable collections to suggest associated abscess. Scutum is sharp. Limited evaluation of the tympanic membrane due to middle ear opacification. Thinning of the tegmen mastoideum and tympani, though without definite evidence of olu dehiscence. Normal mineralization surrounding cochlear apparatus. No thinning of the osseous covering of the tympanic segment of the facial nerve. The vestibular apparatus (including semicircular canals), vestibular aqueduct, cochlea, and course of the facial nerve are normal in appearance. LEFT: The external auditory canal is unremarkable. The mastoid air cells are well aerated. The scutum is sharp. Tympanic membrane is unremarkable. Normal tympanic annulus. Tegmen mastoideum and tympani are normal. Middle ear cavity is well aerated. The ossicular chain is intact. Oval and round windows are well aerated. Normal mineralization surrounding cochlear apparatus. No thinning of the osseous covering of the tympanic segment of the facial nerve. The vestibular apparatus (including semicircular canals), vestibular aqueduct, cochlea, and course of the facial nerve are normal in appearance. OTHER: The internal auditory canals are not expanded. No cerebellopontine angle cistern mass. Normal course of the carotid and jugular vasculature. No acute process within the visualized intracranial compartment by CT. IMPRESSION: 1. Constellation of findings for which right otomastoiditis are considered, in the appropriate clinical context. No evidence of associated complication by CT, as described. 2. Thinning of the right tegmen mastoideum and tegmen tympani, without evidence of olu dehiscence, and no evidence of intracranial involvement by CT. If there is concern for intracranial complication, MRI may be of diagnostic value. Finalized by Althea Santillan MD on 12/26/2023 5:[address] neck soft tissue with contrast Result Date: 12/26/2023 EXAM: CT NECK WITH CONTRAST CLINICAL INFORMATION: Soft tissue infection suspected, neck, xray done. TECHNIQUE: CT neck was performed utilizing 5 mm axial reconstructions following the uneventful administration of nonionic intravenous contrast. Coronal and sagittal reformatted images were obtained and reviewed. Automated exposure control was utilized. COMPARISON: None. FINDINGS: The mucosal and submucosal spaces are grossly symmetric and unremarkable. There are calcified tonsilloliths. There is no evidence for a mass in the neck. There are scattered non-enlarged lymph nodes on both sides of the neck. The thyroid gland is unremarkable. The parotid and submandibular glands are symmetric and unremarkable. The carotid arteries and jugular veins are unremarkable. The limited visualized lung apices are unremarkable. There is polypoid mucosal thickening in the left maxillary sinus with areas of high attenuation compatible with fungal infection or inspissated secretions. There is fluid within the right mastoid air cells and middle ear; clinical correlation for acute right-sided otitis media is recommended. The left mastoid air cells are clear and well aerated. IMPRESSION: 1. No acute abnormalities in the neck. 2. Fluid within the right mastoids and filling the middle ears; clinical correlation for acute right-sided otitis media is recommended. 3. Mucosal thickening in the left maxillary sinus with areas of high attenuation compatible with inspissated secretions and/or fungal infection. All CT scans at this facility use dose modulation, iterative reconstruction, and/or weight based dosing when appropriate to reduce radiation dose to as low as reasonably achievable. Finalized by Cyrus Singh MD on 12/26/2023 4:48 PM Micro: Microbiology Results Procedure Component Value Units Date/Time Blood culture [[id number]] Collected: 12/26/231317 Specimen: Blood Updated: 12/27/23153 Culture NO GROWTH <24 HRS Blood culture [[id number]] Collected: 12/26/231317 Specimen: Blood Updated: 12/27/23152 Culture NO GROWTH <24 HRS [facility] SUBJECTIVE: Patient ID (1950): Yue Delgadillo was seen and examined family present in room. No acute overnight events. He denies much change in symptoms, he continues to report significant right ear pain and fullness, but states that pain medication helps to take the edge off. White count is 8.5. He continues on IV Unasyn and Ciprodex. Denies fever, chills, nausea, vomiting, visual disturbance. CT neck and temporal bones completed yesterday. HISTORY: Past Medical History: Diagnosis Date Arthritis Asthma GERD (gastroesophageal reflux disease) Gout HL (hearing loss) Hyperlipidemia Hypertension Mastoiditis of right side 12/26/2023 Pneumonia Prostate cancer ([facility]) Visual impairment Past Surgical History: Procedure Laterality Date APPENDECTOMY CARDIAC CATHETERIZATION COLONOSCOPY COLONOSCOPY DIAGNOSTIC / SCREENING N/A 02/21/2023 Performed by Buddy Ureña MD at [facility] JOINT REPLACEMENT 01/02/2020 PROSTATE BIOPSY PROSTATECTOMY REPLACEMENT TOTAL KNEE Right TOOTH EXTRACTION VASECTOMY 1988 Family History Problem Relation Age of Onset [place]'s disease Mother Asthma Mother Heart disease Father Social History Socioeconomic History Marital status: Spouse name: Not on file Number of children: Not on file Years of education: Not on file Highest education level: Associate degree: occupational, technical, or vocational program Occupational History Not on file Tobacco Use Smoking status: Former Current packs/day: 0.50 Types: Cigarettes Smokeless tobacco: Never Vaping Use Vaping status: Never Used Substance and Sexual Activity Alcohol use: Yes Alcohol/week: 6.0 standard drinks of alcohol Types: 6 Cans of beer per week Drug use: No Sexual activity: Not Currently Partners: Female Other Topics Concern Not on file Social History Narrative Not on file Social Determinants of Health Financial Resource Strain: Low Risk (05/03/2020) Overall Financial Resource Strain (CARDIA) Difficulty of Paying Living Expenses: Not very hard Food Insecurity: No Food Insecurity (12/26/2023) Hunger Screening Food Insecurity - Worry: Never True Food Insecurity - Inability: Never True Transportation Needs: No Transportation Needs (12/26/2023) PRAPARE - Transportation Lack of Transportation (Medical): No Lack of Transportation (Non-Medical): No Physical Activity: Sufficiently Active (05/03/2020) Exercise Vital Sign Days of Exercise per Week: 6 days Minutes of Exercise per Session: 40 min Stress: No Stress Concern Present (05/03/2020) [place] [employer] - Occupational Stress Questionnaire Feeling of Stress : Not at all Social Connections: Socially Integrated (05/03/2020) Social Connection and Isolation Panel [NHANES] Frequency of Communication with Friends and Family: More than three times a week Frequency of Social Gatherings with Friends and Family: Twice a week Attends [employer] Services: 1 to 4 times per year Active Member of Clubs or Organizations: Yes Attends Club or Organization Meetings: 1 to 4 times per year Marital Status: Interpersonal Safety: Not At Risk (12/26/2023) Humiliation, Afraid, Rape, and Kick questionnaire Fear of Current or Ex-Partner: No Emotionally Abused: No Physically Abused: No Sexually Abused: No Housing Instability: Low Risk (12/26/2023) Housing Instability Housing Instability: No Allergies Allergen Reactions Ciprofloxacin Hives Codeine Unsure of reaction Erythromycin Hives And anxiousness Lanolin Hives Lisinopril Swelling Meloxicam GI Disturbance Pork Derived (Porcine) Hives If he eats 2 days in a row Sulfa (Sulfonamide Antibiotics) Hives Current Facility-Administered Medications Medication Dose Route Frequency Provider Last Rate Last Admin acetaminophen (TYLENOL EXTRA STRENGTH) tablet 1,000 mg 1,000 mg oral Q8H Trey Lundy MD 1,000 mg at 12/27/23 0845 allopurinoL (ZYLOPRIM) tablet 300 mg 300 mg oral Daily Trey Lundy MD 300 mg at 12/27/23 0844 amLODIPine (NORVASC) tablet 10 mg 10 mg oral Daily Trey Lundy MD ampicillin-sulbactam (UNASYN) 3,000 mg in sodium chloride 0.9 % 100 mL IVPB-MBP 3,000 mg intravenous Q6H Trey Lundy MD aspirin EC tablet 81 mg 81 mg oral Daily Trey Lundy MD 81 mg at 12/27/23 0846 atorvastatin (LIPITOR) tablet 10 mg 10 mg oral Daily Trey Lundy MD 10 mg at 12/27/23 0845 ciprofloxacin-dexAMETHasone (CIPRODEX) otic suspension 4 drop 4 drop right ear BID Trey Lundy MD 4 drop at 12/27/23 0845 dextrose (GLUTOSE) 40 % gel 15 g 15 g oral PRN Trey Lundy MD dextrose 5 % (D5W) infusion 100 mL/hr intravenous Continuous PRN Trey Lundy MD dextrose 50 % in water (D50W) 50% solution 25 mL 25 mL intravenous PRN Trey Lundy MD flu vacc [id number] 6mos up(PF) (FLULAVAL/FLUZONE/FLUARIX TRIV) injection syringe 0.5 mL 0.5 mL intramuscular During hospitalization Trey Lundy MD glucagon HCL injection 1 mg 1 mg intramuscular PRN Trey Lundy MD pantoprazole (PROTONIX) EC tablet 40 mg 40 mg oral Daily Trey Lundy MD 40 mg at 12/27/23 0442 sodium chloride 0.9 % flush 10 mL 10 mL intravenous PRN Fadi Mata DO 10 mL at 12/26/23 1627 sodium chloride 0.9 % flush 3 mL 3 mL intravenous PRN Trey Lundy MD sodium chloride 0.9 % flush 3 mL 3 mL intravenous Q12H VENESSA Trey Lundy MD 3 mL at 12/27/23 0900 sodium chloride 0.9 % flush bag 25 mL intravenous PRN Trey Lundy MD sodium chloride 0.9 % infusion 20 mL/hr intravenous Continuous PRN Trey Lundy MD traMADoL (ULTRAM) tablet 75 mg 75 mg oral Q8H PRN Trey Lundy MD 75 mg at 12/27/23 0844 REVIEW OF SYSTEMS: Data Reviewed: CT TEMPORAL BONES W CONT: 12/26/2023 PROVIDED HISTORY: * 73 years old Male * Mastoiditis COMPARISON: CT neck 01/13/2024, MRI brain 05/15/2017 TECHNIQUE: 1. High-resolution temporal bone CT with multiplanar reformats. Examination performed following the uneventful intravenous administration of contrast. 2. All CT scans at this facility use dose modulation, iterative reconstruction, and/or weight based dosing when appropriate to reduce radiation dose to as low as reasonably achievable. FINDINGS: RIGHT: Soft tissue thickening of the external auditory canal extending to the level of the tympanic membrane, without evidence of significant erosions of the osseous external auditory canal. Near complete opacification of the middle ear cavity with surrounding of the otherwise patent ossicular chain. Opacification extends into the aditus ad antrum with associated moderate opacification of the right mastoid air cells. Mastoid air cell septae appear grossly intact. Mastoid process mejia appear intact. Opacification extends to the round window niche. Adjacent distal transverse and sigmoid sinuses appear patent within limitations of technique. No evidence of adjacent peripherally enhancing/drainable collections to suggest associated abscess. Scutum is sharp. Limited evaluation of the tympanic membrane due to middle ear opacification. Thinning of the tegmen mastoideum and tympani, though without definite evidence of olu dehiscence. Normal mineralization surrounding cochlear apparatus. No thinning of the osseous covering of the tympanic segment of the facial nerve. The vestibular apparatus (including semicircular canals), vestibular aqueduct, cochlea, and course of the facial nerve are normal in appearance. LEFT: The external auditory canal is unremarkable. The mastoid air cells are well aerated. The scutum is sharp. Tympanic membrane is unremarkable. Normal tympanic annulus. Tegmen mastoideum and tympani are normal. Middle ear cavity is well aerated. The ossicular chain is intact. Oval and round windows are well aerated. Normal mineralization surrounding cochlear apparatus. No thinning of the osseous covering of the tympanic segment of the facial nerve. The vestibular apparatus (including semicircular canals), vestibular aqueduct, cochlea, and course of the facial nerve are normal in appearance. OTHER: The internal auditory canals are not expanded. No cerebellopontine angle cistern mass. Normal course of the carotid and jugular vasculature. No acute process within the visualized intracranial compartment by CT. IMPRESSION: 1. Constellation of findings for which right otomastoiditis are considered, in the appropriate clinical context. No evidence of associated complication by CT, as described. 2. Thinning of the right tegmen mastoideum and tegmen tympani, without evidence of olu dehiscence, and no evidence of intracranial involvement by CT. If there is concern for intracranial complication, MRI may be of diagnostic value. Finalized by Althea Santillan MD on 12/26/2023 5:13 PM EXAM: CT NECK WITH CONTRAST CLINICAL INFORMATION: Soft tissue infection suspected, neck, xray done. TECHNIQUE: CT neck was performed utilizing 5 mm axial reconstructions following the uneventful administration of nonionic intravenous contrast. Coronal and sagittal reformatted images were obtained and reviewed. Automated exposure control was utilized. COMPARISON: None. FINDINGS: The mucosal and submucosal spaces are grossly symmetric and unremarkable. There are calcified tonsilloliths. There is no evidence for a mass in the neck. There are scattered non-enlarged lymph nodes on both sides of the neck. The thyroid gland is unremarkable. The parotid and submandibular glands are symmetric and unremarkable. The carotid arteries and jugular veins are unremarkable. The limited visualized lung apices are unremarkable. There is polypoid mucosal thickening in the left maxillary sinus with areas of high attenuation compatible with fungal infection or inspissated secretions. There is fluid within the right mastoid air cells and middle ear; clinical correlation for acute right-sided otitis media is recommended. The left mastoid air cells are clear and well aerated. IMPRESSION: 1. No acute abnormalities in the neck. 2. Fluid within the right mastoids and filling the middle ears; clinical correlation for acute right-sided otitis media is recommended. 3. Mucosal thickening in the left maxillary sinus with areas of high attenuation compatible with inspissated secretions and/or fungal infection. Recent Results (from the past 24 hour(s)) CBC auto differential Collection Time: 12/26/23 1:18 PM Result Value Ref Range White Blood Cells 9.1 4.0 - 11.0 X10E9/L RBC count 6.05 (H) 4.10 - 5.70 X10E12/L Hemoglobin 19.3 (H) 13.0 - 17.0 g/dL Hematocrit 55.4 (H) 39 - 49 % MCV 92 80 - 100 fL MCH 31.9 27 - 34 pg MCHC 34.9 32 - 36 g/dL RDW 14.8 11.5 - 15.0 % Platelets 180 150 - 450 X10E9/L MPV 8.1 7 - 12 fL % neutrophils 75.0 % % lymphocytes 12.1 % % monocytes 10.0 % % eosinophils 2.3 % % Basophils 0.6 % Neutrophils Absolute (A) 6.8 (H) 1.5 - 6.6 X10E9/L Lymphocytes Absolute 1.1 1.0 - 3.5 X10E9/L Monocytes Absolute 0.9 0 - 0.9 X10E9/L Eosinophils Absolute 0.2 0.0 - 0.4 X10E9/L Basophils Absolute 0.1 0.0 - 0.2 X10E9/L Basic Metabolic Panel Collection Time: 12/26/23 1:18 PM Result Value Ref Range Sodium 138 134 - 146 mmol/L Potassium, Bld 4.2 3.5 - 5.0 mmol/L Chloride 99 98 - 109 mmol/L CO2 26 22 - 32 mmol/L Anion gap 13 5 - 15 mmol/L BUN 13 5 - 27 mg/dL Creatinine 0.91 0.60 - 1.30 mg/dL Glucose 88 65 - 99 mg/dL Calcium 9.6 8.5 - 10.5 mg/dL eGFR (CKD-EPI)non-race dependent 90 >59 ml/min/1.73sq.m Blood culture Collection Time: 12/26/23 1:18 PM Specimen: Blood LEFT~ANTECUBITAL Result Value Ref Range Culture NO GROWTH <24 HRS Blood culture Collection Time: 12/26/23 1:18 PM Specimen: Blood RIGHT~ANTECUBITAL Result Value Ref Range Culture NO GROWTH <24 HRS Basic Metabolic Panel Collection Time: 12/27/23 4:32 AM Result Value Ref Range Sodium 139 134 - 146 mmol/L Potassium, Bld 3.9 3.5 - 5.0 mmol/L Chloride 103 98 - 109 mmol/L CO2 27 22 - 32 mmol/L Anion gap 9 5 - 15 mmol/L BUN 14 5 - 27 mg/dL Creatinine 0.88 0.60 - 1.30 mg/dL Glucose 81 65 - 99 mg/dL Calcium 9.0 8.5 - 10.5 mg/dL eGFR (CKD-EPI)non-race dependent >90 >59 ml/min/1.73sq.m CBC auto differential Collection Time: 12/27/23 4:32 AM Result Value Ref Range White Blood Cells 8.5 4.0 - 11.0 X10E9/L RBC count 5.43 4.10 - 5.70 X10E12/L Hemoglobin 17.6 (H) 13.0 - 17.0 g/dL Hematocrit 50.3 (H) 39 - 49 % MCV 93 80 - 100 fL MCH 32.5 27 - 34 pg MCHC 35.1 32 - 36 g/dL RDW 14.6 11.5 - 15.0 % Platelets 164 150 - 450 X10E9/L MPV 8.1 7 - 12 fL % neutrophils 72.5 % % lymphocytes 13.9 % % monocytes 9.6 % % eosinophils 3.1 % % Basophils 0.9 % Neutrophils Absolute (A) 6.1 1.5 - 6.6 X10E9/L Lymphocytes Absolute 1.2 1.0 - 3.5 X10E9/L Monocytes Absolute 0.8 0 - 0.9 X10E9/L Eosinophils Absolute 0.3 0.0 - 0.4 X10E9/L Basophils Absolute 0.1 0.0 - 0.2 X10E9/L PHYSICAL EXAMINATION: BP (!) 148/93 Pulse 65 Temp 36.5 C (97.7 F) (Oral) Resp 17 Ht 177.8 cm (5' 10 ) Wt 93.8 kg (206 lb 12.7 oz) SpO2 91% BMI 29.67 kg/m Constitutional: Healthy, Alert, Cooperative, and In No Apparent Distress, Normal Ability to Communicate. Voice normal quality and volume Head/Face: Normocephalic, without obvious abnormalities present, salivary glands normal, Atraumatic, Sinuses nontender without overlying facial swelling or deformity, and facial nerve intact bilaterally, mildly tender to palpation along the angle of the right mandible. Eyes: No gross abnormalities., Gaze Alignment Straight, No spontaneous nystagmus at rest, PERRL, EOMI, and No visible upper eyelid ptosis Ear: RIGHT: Auricle: normal size, shape, without obvious skin lesions, Normal hearing in exam room, No visible erythema or swelling overlying mastoid region., trace blood present in canal, wet white debris deep in canal just anterior to TM, TM is thickened, PE tube is visualized in place and appears patent. LEFT: Auricle: normal size, shape, without obvious skin lesions, Normal hearing in exam room, External ear canal normal: no otorrhea, lesions, skin erythema, or swelling, Tympanic Membrane Intact, visible middle ear space appears aerated., and No visible erythema or swelling overlying mastoid region. TMJ: no pain, crepitus, or trismus Neck: normal, supple, no adenopathy, thyroid normal in size, no nodules or tenderness, and no neck masses palpable mildly tender to palpable on right at level 2A Respiration: No stridor, Normal respiratory effort. Chest expands symmetrically. ASSESSMENT/PLAN: Assessment: 1. Right otitis externa 2. Right suppurative otitis media with effusion 3. Otorrhagia, likely due to recent myringotomy and PE tube placement on 12/25 Plan: Continue IV antibiotics and Ciprodex Will Discuss with Dr. Neptali MILLER PA-C [facility] Contact Office during business hours After Hours Answering Service Please note that parts of this chart were generated using voice recognition M*Modal dictation software. Although every effort was made to ensure the accuracy of this automated industrial rehabilitation consultant, some errors in industrial rehabilitation consultant may have occurred. Mag Miller PA-C 12/27/23 9986 IPhylicia DO, personally performed the face to face diagnostic evaluation on this patient. My findings are as follows: Patient seen and evaluated. He states he just finished talking with Infectious Disease and they were going to make a change to his antibiotic. He states that his pain really has not improved in the past 24-48 hours. This has been an ongoing, increasing process for the past 4 weeks. He did have some oral steroids at home. I will order a 3 doses of IV Decadron to see if this can help with some of his pain and inflammation. Patient states he is not sleeping well due to the level of pain. Also discussed giving the new antibiotic at least 24 hours before deciding on whether or not to perform any biopsy. CT scan imaging was not impressive for any erosive features or coalescence. Will re-evaluate tomorrow Phylicia Gunderson DO Otolaryngology Head and Neck Surgery . documented in this encounter [facility] 12-30-2023 Plan of care note Problem: Safety Goal: Patient will be injury free during hospitalization Description: INTERVENTIONS: 1. Assess patient's risk for falls and implement fall prevention plan of care per policy 2. Provide and maintain a safe environment 3. Proper use of double Identifiers 4. Medication administration using the 5 rights 5. Hand hygiene 6. Specimens are labeled at the bedside 7. Instruct patient/ patient territory service representative about use of safety devices 8. Include patient/ patient territory service representative in decisions related to safety Outcome: Progressing Note: Evaluation of progress towards goal:Safety maintained, call light and personal items within reach [facility] 12-30-2023 Plan of care note Problem: Pain Goal: Patient goal is pain score less than 4, able to rest, and participant in treatment plan as appropriate Description: INTERVENTIONS: 1. Encourage patient or legal territory service representative to report early pain and ask for pain medicine when needed 2. Assess pain using appropriate pain scale and include the scale used when documenting 3. Administer analgesics based on type and severity of pain and evaluate response within appropriate time frame 4. Implement non-pharmacological measures as appropriate and evaluate response 5. Consider cultural and social influences on pain and pain management 6. Notify LIP if interventions ineffective or patient reports new pain 7. Monitor vital signs including pulse ox, end-tidal CO2 based on pain intervention 8. Reassess pain per policy 9. Teach patient or legal territory service representative interventions for comforting Outcome: Progressing Note: Evaluation of progress towards goal: Patient denies pain at this time. Will continue to monitor. Problem: Safety Goal: Patient will be injury free during hospitalization Description: INTERVENTIONS: 1. Assess patient's risk for falls and implement fall prevention plan of care per policy 2. Provide and maintain a safe environment 3. Proper use of double Identifiers 4. Medication administration using the 5 rights 5. Hand hygiene 6. Specimens are labeled at the bedside 7. Instruct patient/ patient territory service representative about use of safety devices 8. Include patient/ patient territory service representative in decisions related to safety Outcome: Progressing Note: Evaluation of progress towards goal: Patient free from hospital injury. Will continue to assess risk for falls throughout shift. Problem: Infection Goal: Absence of infection during hospitalization Description: Interventions: 1. Assess and monitor for signs and symptoms of infection 2. Monitor lab/diagnostic results 3. Monitor all insertion sites i.e., indwelling lines, tubes and drains 4. Monitor endotracheal (as able) and nasal secretions for changes in amount and color 5. Administer medications as ordered 6. Instruct and encourage patient and family to use good hand hygiene technique 7. Identify and instruct patient/patient territory service representative in use of appropriate isolation precautions for identified infection/symptoms 8. Provide and discuss with patient/patient territory service representative on educational MDRO sheet 9. Encourage and monitor nutritional status daily and consult apparel pattern maker if indicated 10. Implement neutropenic guidelines as needed 11. Review exposure to history of communicable disease and recent travel history on admission 12. Encourage annual influenza vaccine 13. Encourage pneumonia vaccine Outcome: Progressing Note: Evaluation of progress towards goal: Monitor labs and vital signs. Patient afebrile at this time. Problem: Knowledge Deficit Goal: Patient/patient territory service representative demonstrates understanding of disease process, treatment plan, medications, and discharge instructions Description: INTERVENTIONS 1. Complete learning assessment and assess knowledge base 2. Provide teaching at level of understanding 3. Provide teaching via preferred learning method(s) Outcome: Progressing Note: Evaluation of progress towards goal: Plan of care reviewed with patient. Medications discussed prior to administration. [facility] 12-30-2023 Plan of care note Problem: Safety Goal: Patient will be injury free during hospitalization Description: INTERVENTIONS: 1. Assess patient's risk for falls and implement fall prevention plan of care per policy 2. Provide and maintain a safe environment 3. Proper use of double Identifiers 4. Medication administration using the 5 rights 5. Hand hygiene 6. Specimens are labeled at the bedside 7. Instruct patient/ patient territory service representative about use of safety devices 8. Include patient/ patient territory service representative in decisions related to safety Outcome: Progressing Note: Evaluation of progress towards goal:Safety maintained, call light and personal items within reach [facility] 12-29-2023 Plan of care note Problem: Pain Goal: Patient goal is pain score less than 4, able to rest, and participant in treatment plan as appropriate Description: INTERVENTIONS: 1. Encourage patient or legal territory service representative to report early pain and ask for pain medicine when needed 2. Assess pain using appropriate pain scale and include the scale used when documenting 3. Administer analgesics based on type and severity of pain and evaluate response within appropriate time frame 4. Implement non-pharmacological measures as appropriate and evaluate response 5. Consider cultural and social influences on pain and pain management 6. Notify LIP if interventions ineffective or patient reports new pain 7. Monitor vital signs including pulse ox, end-tidal CO2 based on pain intervention 8. Reassess pain per policy 9. Teach patient or legal territory service representative interventions for comforting Outcome: Progressing Note: Evaluation of progress towards goal: PRN pain medication available per patient request. Will continue to monitor. Problem: Safety Goal: Patient will be injury free during hospitalization Description: INTERVENTIONS: 1. Assess patient's risk for falls and implement fall prevention plan of care per policy 2. Provide and maintain a safe environment 3. Proper use of double Identifiers 4. Medication administration using the 5 rights 5. Hand hygiene 6. Specimens are labeled at the bedside 7. Instruct patient/ patient territory service representative about use of safety devices 8. Include patient/ patient territory service representative in decisions related to safety Outcome: Progressing Note: Evaluation of progress towards goal: Patient free from hospital injury. Will continue to assess risk for falls throughout shift. Problem: Infection Goal: Absence of infection during hospitalization Description: Interventions: 1. Assess and monitor for signs and symptoms of infection 2. Monitor lab/diagnostic results 3. Monitor all insertion sites i.e., indwelling lines, tubes and drains 4. Monitor endotracheal (as able) and nasal secretions for changes in amount and color 5. Administer medications as ordered 6. Instruct and encourage patient and family to use good hand hygiene technique 7. Identify and instruct patient/patient territory service representative in use of appropriate isolation precautions for identified infection/symptoms 8. Provide and discuss with patient/patient territory service representative on educational MDRO sheet 9. Encourage and monitor nutritional status daily and consult apparel pattern maker if indicated 10. Implement neutropenic guidelines as needed 11. Review exposure to history of communicable disease and recent travel history on admission 12. Encourage annual influenza vaccine 13. Encourage pneumonia vaccine Outcome: Progressing Note: Evaluation of progress towards goal: Monitor labs and vital signs. Patient afebrile at this time. Problem: Knowledge Deficit Goal: Patient/patient territory service representative demonstrates understanding of disease process, treatment plan, medications, and discharge instructions Description: INTERVENTIONS 1. Complete learning assessment and assess knowledge base 2. Provide teaching at level of understanding 3. Provide teaching via preferred learning method(s) Outcome: Progressing Note: Evaluation of progress towards goal: Plan of care reviewed with patient. Medications discussed prior to administration. [facility] 12-28-2023 Plan of care note Problem: Safety Goal: Patient will be injury free during hospitalization Description: INTERVENTIONS: 1. Assess patient's risk for falls and implement fall prevention plan of care per policy 2. Provide and maintain a safe environment 3. Proper use of double Identifiers 4. Medication administration using the 5 rights 5. Hand hygiene 6. Specimens are labeled at the bedside 7. Instruct patient/ patient territory service representative about use of safety devices 8. Include patient/ patient territory service representative in decisions related to safety Outcome: Progressing Note: Evaluation of progress towards goal:Safety maintained, call light and personal items within reach [facility] 12-28-2023 Progress note Formatting of t his note might be different from the original. DISCHARGE PLANNING NOTE Referral sent to. [facility]- P# ; F# [facility] (formerly [facility] (P# ; F# ) [address] [facility] [place] (P# ; F# ) [facility], [facility] ([place]: P# ; F# ); [facility] 12-28-2023 Progress note Formatting of t his note might be different from the original. DISCHARGE PLANNING NOTE Referral sent to [facility]- [place], [place] [facility] - (P# ; F# ) [facility] 12-28-2023 Hospital Discharge instructions Georgie Menendez MD - 12/28/2023 3:34 PM EDT During the course of your admission you were seen by [facility]. It is important that you follow-up as an outpatient for re-evaluation. Appointment should be made to be seen within 4-6 weeks after discharge. Please call our office , to schedule and if you have any additional questions or concerns. You are being discharged home today. Follow-up with your primary care physician within 1 week after discharge for post hospital discharge management. Follow-up with Infectious Disease doctor regarding the course of treatment of her infection. He will be given IV antibiotics at home. Depending on her course during her treatment, further evaluation might be necessary with ENT. This will be evaluated during your next visit with ENT and Infectious Disease in the office. documented in this encounter [facility] 12-28-2023 Progress note Formatting of t his note is different from the original. Query Response Note AUTOMATED QUERY TEXT: Type of Asthma: This query seeks further clarification of documentation to reflect all conditions that you are monitoring, evaluating, treating or that extend hospitalization or utilize additional resources. Please utilize your independent clinical judgment when addressing the question(s) below. Please provide further specificity, if known. Clinical indicators include: asthma, flovent, spo2, o2, wheezing, rales, co2, opacification, steroid, accessory muscle, crackles, wheezes Options provided: -- Cough variant asthma -- Asthma with COPD -- Status asthmaticus -- Asthma with acute exacerbation -- Exercise induced bronchospasm -- Allergic asthma -- Non-allergic asthma -- Reactive airway disease due to cause other than asthma -- Other - I will add my own diagnosis -- Dismiss - Not applicable / Not valid AUTOMATED QUERY RESPONSE TEXT: Asthma, not in exacerbation Electronically signed by: Georgie Menendez MD 12/28/2023 2:36 PM [facility] 12-28-2023 Plan of care note Problem: Pain Goal: Patient goal is pain score less than 4, able to rest, and participant in treatment plan as appropriate Description: INTERVENTIONS: 1. Encourage patient or legal territory service representative to report early pain and ask for pain medicine when needed 2. Assess pain using appropriate pain scale and include the scale used when documenting 3. Administer analgesics based on type and severity of pain and evaluate response within appropriate time frame 4. Implement non-pharmacological measures as appropriate and evaluate response 5. Consider cultural and social influences on pain and pain management 6. Notify LIP if interventions ineffective or patient reports new pain 7. Monitor vital signs including pulse ox, end-tidal CO2 based on pain intervention 8. Reassess pain per policy 9. Teach patient or legal territory service representative interventions for comforting Outcome: Progressing Note: Evaluation of progress towards goal: c/o mild right ear pain medicated as needed with relief Problem: Safety Goal: Patient will be injury free during hospitalization Description: INTERVENTIONS: 1. Assess patient's risk for falls and implement fall prevention plan of care per policy 2. Provide and maintain a safe environment 3. Proper use of double Identifiers 4. Medication administration using the 5 rights 5. Hand hygiene 6. Specimens are labeled at the bedside 7. Instruct patient/ patient territory service representative about use of safety devices 8. Include patient/ patient territory service representative in decisions related to safety Outcome: Progressing Note: Evaluation of progress towards goal: safety measures maintained no injuries Problem: Infection Goal: Absence of infection during hospitalization Description: Interventions: 1. Assess and monitor for signs and symptoms of infection 2. Monitor lab/diagnostic results 3. Monitor all insertion sites i.e., indwelling lines, tubes and drains 4. Monitor endotracheal (as able) and nasal secretions for changes in amount and color 5. Administer medications as ordered 6. Instruct and encourage patient and family to use good hand hygiene technique 7. Identify and instruct patient/patient territory service representative in use of appropriate isolation precautions for identified infection/symptoms 8. Provide and discuss with patient/patient territory service representative on educational MDRO sheet 9. Encourage and monitor nutritional status daily and consult apparel pattern maker if indicated 10. Implement neutropenic guidelines as needed 11. Review exposure to history of communicable disease and recent travel history on admission 12. Encourage annual influenza vaccine 13. Encourage pneumonia vaccine Outcome: Progressing Note: Evaluation of progress towards goal: continue iv antibiotics for ear infection Problem: Knowledge Deficit Goal: Patient/patient territory service representative demonstrates understanding of disease process, treatment plan, medications, and discharge instructions Description: INTERVENTIONS 1. Complete learning assessment and assess knowledge base 2. Provide teaching at level of understanding 3. Provide teaching via preferred learning method(s) Outcome: Progressing Note: Evaluation of progress towards goal: all care explained Problem: Discharge Planning Goal: Discharge to post-acute care, other facility, or home with appropriate resources Description: Patient's goal is: INTERVENTIONS 1. Conduct assessment to determine patient/family and health care team treatment goals, and need for post-acute services based on payer coverage, community resources, and patient preferences, and barriers to discharge 2. Coordinate with Social work, Care Navigation, and Utilization Review to arrange appropriate level of services according to patient's needs based on patient preference and payer coverage in collaboration with the physician and health care team 3. Address psychosocial, clinical, and financial barriers to discharge as identified in assessment in conjunction with the patient/family and health care team 4. Consult appropriate ancillary services (i.e.. PT/OT/ST, etc) as needed 5. Communicate with and update the patient/family, physician, and health care team regarding progress on the discharge plan 6. Identify discharge learning needs (meds, wound care, etc). 7. Arrange for needed discharge transportation as appropriate Outcome: Progressing Note: Evaluation of progress towards goal: plans to return home at discharge [facility] 12-27-2023 Plan of care note Problem: Pain Goal: Patient goal is pain score less than 4, able to rest, and participant in treatment plan as appropriate Description: INTERVENTIONS: 1. Encourage patient or legal territory service representative to report early pain and ask for pain medicine when needed 2. Assess pain using appropriate pain scale and include the scale used when documenting 3. Administer analgesics based on type and severity of pain and evaluate response within appropriate time frame 4. Implement non-pharmacological measures as appropriate and evaluate response 5. Consider cultural and social influences on pain and pain management 6. Notify LIP if interventions ineffective or patient reports new pain 7. Monitor vital signs including pulse ox, end-tidal CO2 based on pain intervention 8. Reassess pain per policy 9. Teach patient or legal territory service representative interventions for comforting Outcome: Progressing Note: Evaluation of progress towards goal: patient pain managed with PRN pain medication. Will continue to monitor. Problem: Safety Goal: Patient will be injury free during hospitalization Description: INTERVENTIONS: 1. Assess patient's risk for falls and implement fall prevention plan of care per policy 2. Provide and maintain a safe environment 3. Proper use of double Identifiers 4. Medication administration using the 5 rights 5. Hand hygiene 6. Specimens are labeled at the bedside 7. Instruct patient/ patient territory service representative about use of safety devices 8. Include patient/ patient territory service representative in decisions related to safety Outcome: Progressing Note: Evaluation of progress towards goal: patient's room is free of clutter, bed is locked and in the lowest position, call light and personal belongings are within reach. Hourly rounding completed and will continue throughout shift. Will continue to monitor. [facility] 12-27-2023 Consult note Associated Order (s): IP CONSULT TO INFECTIOUS DISEASES Images from the original note were not included. Division of Infectious Diseases - Initial Consult Note [facility] - Academic Team 2 During Business Hours: Please page or use Admitly for communication. After Hours: Please call for our answering service. Patient name: Yue Delgadillo Patient Today's Date and Time: 12/27/2023, 12:12 PM Admission Date: 12/26/2023 Primary Care Physician: Brianna Brunner MD Impression and Recommendations: Right-sided mastoiditis. Right-sided otitis externa. Right suppurative otitis media with effusion. The patient had reasonably received amoxicillin-clavulanate and is now receiving intravenous ampicillin-sulbactam for right-sided otitis externa and otitis media. The patient has also received Ciprodex drops as an outpatient. With that said, CT suggested right-sided otomastoiditis, which does raise the prospect of Pseudomonas aeruginosa infection. The patient has also failed non anti pseudomonal antibiotics such as amoxicillin-clavulanate as an outpatient. I would favor treating with Pseudomonas aeruginosa in this setting. Stop ampicillin-sulbactam. Initiate cefepime 2 g IV every 8 hours. Could consider biopsy of mastoid bone if the patient does not improve. We will discuss with ENT as warranted. Subjective Reason for consultation / Chief complaint: Right-sided otitis externa, right suppurative otitis media with effusion. History of Present Illness We appreciate the opportunity to consult on Yue Delgadillo, a 73 y.o.-year-old male who was initially admitted on 12/26/2023. This is a patient that was evaluated for right-sided otitis externa. He was seen by an outpatient and a sanitation worker with a wick having been placed in his ear on December 20, 2023. The ear canal showed mild edema; the patient had a middle ear effusion and intense pain. As an outpatient, the patient has been on oral amoxicillin-clavulanate, Ciprodex drops, and has been managed by an housekeeping department worker but the patient's pain had persistent. It had extended into his right ear and had radiated. His ear pain and neck pain had gotten worse. ENT has evaluated the patient. Past Medical History: Past Medical History: Diagnosis Date Arthritis Asthma GERD (gastroesophageal reflux disease) Gout HL (hearing loss) Hyperlipidemia Hypertension Mastoiditis of right side 12/26/2023 Pneumonia Prostate cancer ([facility]) Visual impairment Past Surgical History: Past Surgical History: Procedure Laterality Date APPENDECTOMY CARDIAC CATHETERIZATION COLONOSCOPY COLONOSCOPY DIAGNOSTIC / SCREENING N/A 02/21/2023 Performed by Buddy Ureña MD at [facility] 01/02/2020 PROSTATE BIOPSY PROSTATECTOMY REPLACEMENT TOTAL KNEE Right TOOTH EXTRACTION VASECTOMY 1988 Medications: acetaminophen, 1,000 mg, oral, Q8H allopurinoL, 300 mg, oral, Daily amLODIPine, 10 mg, oral, Daily ampicillin-sulbactam (UNASYN) IV, 3,000 mg, intravenous, Q6H aspirin, 81 mg, oral, Daily atorvastatin, 10 mg, oral, Daily ciprofloxacin-dexAMETHasone, 4 drop, right ear, BID pantoprazole, 40 mg, oral, Daily sodium chloride, 3 mL, intravenous, Q12H VENESSA Social History: Social History Socioeconomic History Marital status: Highest education level: Associate degree: occupational, technical, or vocational program Tobacco Use Smoking status: Former Current packs/day: 0.50 Types: Cigarettes Smokeless tobacco: Never Vaping Use Vaping status: Never Used Substance and Sexual Activity Alcohol use: Yes Alcohol/week: 6.0 standard drinks of alcohol Types: 6 Cans of beer per week Drug use: No Sexual activity: Not Currently Partners: Female Social Determinants of Health Financial Resource Strain: Low Risk (05/03/2020) Overall Financial Resource Strain (CARDIA) Difficulty of Paying Living Expenses: Not very hard Food Insecurity: No Food Insecurity (12/26/2023) Hunger Screening Food Insecurity - Worry: Never True Food Insecurity - Inability: Never True Transportation Needs: No Transportation Needs (12/26/2023) PRAPARE - Transportation Lack of Transportation (Medical): No Lack of Transportation (Non-Medical): No Physical Activity: Sufficiently Active (05/03/2020) Exercise Vital Sign Days of Exercise per Week: 6 days Minutes of Exercise per Session: 40 min Stress: No Stress Concern Present (05/03/2020) [place] [employer] - Occupational Stress Questionnaire Feeling of Stress : Not at all Social Connections: Socially Integrated (05/03/2020) Social Connection and Isolation Panel [NHANES] Frequency of Communication with Friends and Family: More than three times a week Frequency of Social Gatherings with Friends and Family: Twice a week Attends [employer] Services: 1 to 4 times per year Active Member of Clubs or Organizations: Yes Attends Club or Organization Meetings: 1 to 4 times per year Marital Status: Interpersonal Safety: Not At Risk (12/26/2023) Humiliation, Afraid, Rape, and Kick questionnaire Fear of Current or Ex-Partner: No Emotionally Abused: No Physically Abused: No Sexually Abused: No Housing Instability: Low Risk (12/26/2023) Housing Instability Housing Instability: No Family History: Family History Problem Relation Age of Onset [place]'s disease Mother Asthma Mother Heart disease Father Immunization History: Immunization History Administered Date(s) Administered COVID-19, mRNA, LNP-S, PF, 100mcg/0.5mL Dose 05/31/2020 COVID-19, mRNA, LNP-S, PF, 30mcg/0.3mL Dose 05/27/2020, 06/18/2020, 01/14/2021 Covid-19, Mrna, Lnp-s, Bivalent, Pf, 30mcg/0.3 ml 02/07/2022 Covid-19, Mrna, Lnp-s, Pf, 30 Mcg/0.3 Ml Dose, Lam-sucrose 10/25/2021 Covid-19,mrna, Lnp-s, Pf, 50mcg/0.5ml 12+ 02/02/2023 Influenza High Dose Preservative Free IM 01/29/2017, 01/08/2018, 01/13/2019, 01/14/2020 Influenza, High-dose, Quadrivalent 01/14/2021, 02/07/2022, 01/03/2023 Influenza, Unspecified 01/08/2014, 01/25/2015, 03/09/2016 Pneumococcal Conjugate 13-Valent 03/09/2016 Pneumococcal Polysaccharide 01/08/2018 RSV, bivalent, protein subunit RSVpreF, diluent reconstituted, 0.5 mL, PF 01/03/2023 Tdap 11/19/2012 Zoster Live 01/31/2013 Zoster Vaccine Recombinant 03/06/2018, 06/23/2018, 01/03/2023 Allergies: Allergies Allergen Reactions Ciprofloxacin Hives Codeine Unsure of reaction Erythromycin Hives And anxiousness Lanolin Hives Lisinopril Swelling Meloxicam GI Disturbance Pork Derived (Porcine) Hives If he eats 2 days in a row Sulfa (Sulfonamide Antibiotics) Hives Review of Systems: General: No fevers or chills. Eyes: No double vision or blurry vision. ENT: No sore throat or runny nose. Cardiovascular: No chest pain or palpitations. Lung: No shortness of breath or cough. Abdomen: No nausea, vomiting, diarrhea, or abdominal pain. Genitourinary: No increased urinary frequency, or dysuria. Musculoskeletal: No muscle aches or pains. Hematologic: No bleeding or bruising. Neurologic: No headache, weakness, numbness, or tingling. Objective Physical Examination: BP (!) 144/91 Pulse 66 Temp 36.3 C (97.3 F) (Oral) Resp 18 Ht 177.8 cm (5' 10 ) Wt 93.8 kg (206 lb 12.7 oz) SpO2 91% BMI 29.67 kg/m Temperature Range: Temp: 36.3 C (97.3 F) Temp Av.5 C (97.7 F) Min: 36.2 C (97.2 F) Max: 36.7 C (98.1 F) Constitutional: Awake, alert, and in no apparent distress. Eyes: Sclera anicteric, conjunctivae pink. ENT/Mouth: Oropharynx clear, without erythema, exudate, or thrush. Neck: Supple, without lymphadenopathy. Cardiovascular: Regular rate and rhythm without murmurs, rubs, or gallops. Respiratory: Clear to auscultation, without wheezes, rales, or rhonchi. Gastrointestinal/Abdomen: Soft, non-tender; no masses or hepatosplenomegaly. Genitourinary/Genitalia, Groin, Buttocks: Deferred. Musculoskeletal/Extremities/Back : No cyanosis, clubbing, edema, or effusions. Skin: No rash or lesions. Neurologic: Bulk and tone are normal. No atrophy is noted. Psychiatric: Appropriate affect, alert and oriented to person, place and time. Laboratory data: I have independently reviewed the following labs: Results from last 7 days Lab Units 12/27/23 0432 12/26/23 1318 WBC X10E9/L 8.5 9.1 HEMOGLOBIN g/dL 17.6* 19.3* HEMATOCRIT % 50.3* 55.4* MCV fL 93 92 PLATELETS X10E9/L 164 180 NEUTROS ABS X10E9/L 6.1 6.8* LYMPHS ABS AUTO X10E9/L 1.2 1.1 MONOS ABS AUTO X10E9/L 0.8 0.9 EOS ABS AUTO X10E9/L 0.3 0.2 BASOS ABS AUTO X10E9/L 0.1 0.1 Results from last 7 days Lab Units 12/27/23 0432 12/26/23 1318 SODIUM mmol/L 139 138 POTASSIUM mmol/L 3.9 4.2 CHLORIDE mmol/L 103 99 CO2 mmol/L 27 26 BUN mg/dL 14 13 CREATININE mg/dL 0.88 0.91 GLUCOSE mg/dL 81 88 CALCIUM mg/dL 9.0 9.6 Imaging Studies: I have personally reviewed the CT temporal bones, and my interpretation is as follows: Constellation of findings for which right otomastoiditis. Cultures: Microbiology Results Procedure Component Value Units Date/Time Blood culture [[id number]] Collected: 12/26/238 Specimen: Blood Updated: 12/27/23153 Culture NO GROWTH <24 HRS Blood culture [[id number]] Collected: 12/26/23 1318 Specimen: Blood Updated: 12/27/23152 Culture NO GROWTH <24 HRS It is not necessary to call with new culture results. Thank you for allowing us to participate in the care of this patient. Please call with questions. Seamus Marino MD, MPH, FACP, FIDSA From 7AM-7PM: Please page or use Admitly for communication. From 7PM-7AM: Please call for our answering service. [facility] 12-27-2023 Consult note Associated Order (s): IP CONSULT TO INFECTIOUS DISEASES Images from the original note were not included. Division of Infectious Diseases - Initial Consult Note [facility] - Academic Team 2 During Business Hours: Please page or use Admitly for communication. After Hours: Please call for our answering service. Patient name: Yue Delgadillo Patient Today's Date and Time: 12/27/2023, 12:12 PM Admission Date: 12/26/2023 Primary Care Physician: Brianna Brunner MD Impression and Recommendations: Right-sided mastoiditis. Right-sided otitis externa. Right suppurative otitis media with effusion. The patient had reasonably received amoxicillin-clavulanate and is now receiving intravenous ampicillin-sulbactam for right-sided otitis externa and otitis media. The patient has also received Ciprodex drops as an outpatient. With that said, CT suggested right-sided otomastoiditis, which does raise the prospect of Pseudomonas aeruginosa infection. The patient has also failed non anti pseudomonal antibiotics such as amoxicillin-clavulanate as an outpatient. I would favor treating with Pseudomonas aeruginosa in this setting. Stop ampicillin-sulbactam. Initiate cefepime 2 g IV every 8 hours. Could consider biopsy of mastoid bone if the patient does not improve. We will discuss with ENT as warranted. Subjective Reason for consultation / Chief complaint: Right-sided otitis externa, right suppurative otitis media with effusion. History of Present Illness We appreciate the opportunity to consult on Yue Delgadillo, a 73 y.o.-year-old male who was initially admitted on 12/26/2023. This is a patient that was evaluated for right-sided otitis externa. He was seen by an outpatient and a sanitation worker with a wick having been placed in his ear on December 20, 2023. The ear canal showed mild edema; the patient had a middle ear effusion and intense pain. As an outpatient, the patient has been on oral amoxicillin-clavulanate, Ciprodex drops, and has been managed by an housekeeping department worker but the patient's pain had persistent. It had extended into his right ear and had radiated. His ear pain and neck pain had gotten worse. ENT has evaluated the patient. Past Medical History: Past Medical History: Diagnosis Date Arthritis Asthma GERD (gastroesophageal reflux disease) Gout HL (hearing loss) Hyperlipidemia Hypertension Mastoiditis of right side 12/26/2023 Pneumonia Prostate cancer ([facility]) Visual impairment Past Surgical History: Past Surgical History: Procedure Laterality Date APPENDECTOMY CARDIAC CATHETERIZATION COLONOSCOPY COLONOSCOPY DIAGNOSTIC / SCREENING N/A 02/21/2023 Performed by Buddy Ureña MD at [facility] 01/02/2020 PROSTATE BIOPSY PROSTATECTOMY REPLACEMENT TOTAL KNEE Right TOOTH EXTRACTION VASECTOMY 1988 Medications: acetaminophen, 1,000 mg, oral, Q8H allopurinoL, 300 mg, oral, Daily amLODIPine, 10 mg, oral, Daily ampicillin-sulbactam (UNASYN) IV, 3,000 mg, intravenous, Q6H aspirin, 81 mg, oral, Daily atorvastatin, 10 mg, oral, Daily ciprofloxacin-dexAMETHasone, 4 drop, right ear, BID pantoprazole, 40 mg, oral, Daily sodium chloride, 3 mL, intravenous, Q12H VENESSA Social History: Social History Socioeconomic History Marital status: Highest education level: Associate degree: occupational, technical, or vocational program Tobacco Use Smoking status: Former Current packs/day: 0.50 Types: Cigarettes Smokeless tobacco: Never Vaping Use Vaping status: Never Used Substance and Sexual Activity Alcohol use: Yes Alcohol/week: 6.0 standard drinks of alcohol Types: 6 Cans of beer per week Drug use: No Sexual activity: Not Currently Partners: Female Social Determinants of Health Financial Resource Strain: Low Risk (05/03/2020) Overall Financial Resource Strain (CARDIA) Difficulty of Paying Living Expenses: Not very hard Food Insecurity: No Food Insecurity (12/26/2023) Hunger Screening Food Insecurity - Worry: Never True Food Insecurity - Inability: Never True Transportation Needs: No Transportation Needs (12/26/2023) PRAPARE - Transportation Lack of Transportation (Medical): No Lack of Transportation (Non-Medical): No Physical Activity: Sufficiently Active (05/03/2020) Exercise Vital Sign Days of Exercise per Week: 6 days Minutes of Exercise per Session: 40 min Stress: No Stress Concern Present (05/03/2020) [place] [employer] - Occupational Stress Questionnaire Feeling of Stress : Not at all Social Connections: Socially Integrated (05/03/2020) Social Connection and Isolation Panel [NHANES] Frequency of Communication with Friends and Family: More than three times a week Frequency of Social Gatherings with Friends and Family: Twice a week Attends [employer] Services: 1 to 4 times per year Active Member of Clubs or Organizations: Yes Attends Club or Organization Meetings: 1 to 4 times per year Marital Status: Interpersonal Safety: Not At Risk (12/26/2023) Humiliation, Afraid, Rape, and Kick questionnaire Fear of Current or Ex-Partner: No Emotionally Abused: No Physically Abused: No Sexually Abused: No Housing Instability: Low Risk (12/26/2023) Housing Instability Housing Instability: No Family History: Family History Problem Relation Age of Onset Amy's disease Mother Asthma Mother Heart disease Father Immunization History: Immunization History Administered Date(s) Administered COVID-19, mRNA, LNP-S, PF, 100mcg/0.5mL Dose 05/31/2020 COVID-19, mRNA, LNP-S, PF, 30mcg/0.3mL Dose 05/27/2020, 06/18/2020, 01/14/2021 Covid-19, Mrna, Lnp-s, Bivalent, Pf, 30mcg/0.3 ml 02/07/2022 Covid-19, Mrna, Lnp-s, Pf, 30 Mcg/0.3 Ml Dose, Lam-sucrose 10/25/2021 Covid-19,mrna, Lnp-s, Pf, 50mcg/0.5ml 12+ 02/02/2023 Influenza High Dose Preservative Free IM 01/29/2017, 01/08/2018, 01/13/2019, 01/14/2020 Influenza, High-dose, Quadrivalent 01/14/2021, 02/07/2022, 01/03/2023 Influenza, Unspecified 01/08/2014, 01/25/2015, 03/09/2016 Pneumococcal Conjugate 13-Valent 03/09/2016 Pneumococcal Polysaccharide 01/08/2018 RSV, bivalent, protein subunit RSVpreF, diluent reconstituted, 0.5 mL, PF 01/03/2023 Tdap 11/19/2012 Zoster Live 01/31/2013 Zoster Vaccine Recombinant 03/06/2018, 06/23/2018, 01/03/2023 Allergies: Allergies Allergen Reactions Ciprofloxacin Hives Codeine Unsure of reaction Erythromycin Hives And anxiousness Lanolin Hives Lisinopril Swelling Meloxicam GI Disturbance Pork Derived (Porcine) Hives If he eats 2 days in a row Sulfa (Sulfonamide Antibiotics) Hives Review of Systems: General: No fevers or chills. Eyes: No double vision or blurry vision. ENT: No sore throat or runny nose. Cardiovascular: No chest pain or palpitations. Lung: No shortness of breath or cough. Abdomen: No nausea, vomiting, diarrhea, or abdominal pain. Genitourinary: No increased urinary frequency, or dysuria. Musculoskeletal: No muscle aches or pains. Hematologic: No bleeding or bruising. Neurologic: No headache, weakness, numbness, or tingling. Objective Physical Examination: BP (!) 144/91 Pulse 66 Temp 36.3 C (97.3 F) (Oral) Resp 18 Ht 177.8 cm (5' 10 ) Wt 93.8 kg (206 lb 12.7 oz) SpO2 91% BMI 29.67 kg/m Temperature Range: Temp: 36.3 C (97.3 F) Temp Av.5 C (97.7 F) Min: 36.2 C (97.2 F) Max: 36.7 C (98.1 F) Constitutional: Awake, alert, and in no apparent distress. Eyes: Sclera anicteric, conjunctivae pink. ENT/Mouth: Oropharynx clear, without erythema, exudate, or thrush. Neck: Supple, without lymphadenopathy. Cardiovascular: Regular rate and rhythm without murmurs, rubs, or gallops. Respiratory: Clear to auscultation, without wheezes, rales, or rhonchi. Gastrointestinal/Abdomen: Soft, non-tender; no masses or hepatosplenomegaly. Genitourinary/Genitalia, Groin, Buttocks: Deferred. Musculoskeletal/Extremities/Back : No cyanosis, clubbing, edema, or effusions. Skin: No rash or lesions. Neurologic: Bulk and tone are normal. No atrophy is noted. Psychiatric: Appropriate affect, alert and oriented to person, place and time. Laboratory data: I have independently reviewed the following labs: Results from last 7 days Lab Units 12/27/23 0432 12/26/23 1318 WBC X10E9/L 8.5 9.1 HEMOGLOBIN g/dL 17.6* 19.3* HEMATOCRIT % 50.3* 55.4* MCV fL 93 92 PLATELETS X10E9/L 164 180 NEUTROS ABS X10E9/L 6.1 6.8* LYMPHS ABS AUTO X10E9/L 1.2 1.1 MONOS ABS AUTO X10E9/L 0.8 0.9 EOS ABS AUTO X10E9/L 0.3 0.2 BASOS ABS AUTO X10E9/L 0.1 0.1 Results from last 7 days Lab Units 12/27/23 0432 12/26/23 1318 SODIUM mmol/L 139 138 POTASSIUM mmol/L 3.9 4.2 CHLORIDE mmol/L 103 99 CO2 mmol/L 27 26 BUN mg/dL 14 13 CREATININE mg/dL 0.88 0.91 GLUCOSE mg/dL 81 88 CALCIUM mg/dL 9.0 9.6 Imaging Studies: I have personally reviewed the CT temporal bones, and my interpretation is as follows: Constellation of findings for which right otomastoiditis. Cultures: Microbiology Results Procedure Component Value Units Date/Time Blood culture [[id number]] Collected: 12/26/23 1318 Specimen: Blood Updated: 12/27/23 0154 Culture NO GROWTH <24 HRS Blood culture [[id number]] Collected: 12/26/23 1318 Specimen: Blood Updated: 12/27/23 0153 Culture NO GROWTH <24 HRS It is not necessary to call with new culture results. Thank you for allowing us to participate in the care of this patient. Please call with questions. Seamus Marino MD, MPH, FACP, FIDSA From 7AM-7PM: Please page or use Admitly for communication. From 7PM-7AM: Please call for our answering service. Associated Order(s): [facility] SUBJECTIVE: Patient ID ([id number]): Yue Delgadillo is a 73 y.o. male with a past medical history of asthma, hypertension, hyperlipidemia, prostate cancer and vertigo. He presents directly to the ED after being seen in the outpatient ENT clinic today for persistent right-sided otitis externa with suppurative middle ear effusion refractory to Augmentin and multiple otic drops. A right myringotomy with PE tube placement was performed in office today, reportedly with significant difficulty. He states that this issue began roughly one-month ago after swimming in a pond. He states that at the onset he experienced intense right-sided ear pain radiating to the face and jaw, ear fullness and hearing loss. He also endorses headache and constant, high-pitched tinnitus that is intermittently pulsatile, which he denies prior to onset of infection. These symptoms continue currently and have worsened despite treatment mentioned above. He denies a previous history of similar issues. Visual disturbance, dizziness, nausea and vomiting are denied. HISTORY: Past Medical History: Diagnosis Date Arthritis Asthma GERD (gastroesophageal reflux disease) Gout HL (hearing loss) Hyperlipidemia Hypertension Pneumonia Prostate cancer ([facility]) Visual impairment Past Surgical History: Procedure Laterality Date APPENDECTOMY CARDIAC CATHETERIZATION COLONOSCOPY COLONOSCOPY DIAGNOSTIC / SCREENING N/A 02/21/2023 Performed by Buddy Ureña MD at [facility] JOINT REPLACEMENT 01/02/2020 PROSTATE BIOPSY PROSTATECTOMY REPLACEMENT TOTAL KNEE Right TOOTH EXTRACTION VASECTOMY 1988 Family History Problem Relation Age of Onset [place]'s disease Mother Asthma Mother Heart disease Father Social History Socioeconomic History Marital status: Spouse name: Not on file Number of children: Not on file Years of education: Not on file Highest education level: Associate degree: occupational, technical, or vocational program Occupational History Not on file Tobacco Use Smoking status: Former Current packs/day: 0.50 Types: Cigarettes Smokeless tobacco: Never Vaping Use Vaping status: Never Used Substance and Sexual Activity Alcohol use: Yes Alcohol/week: 6.0 standard drinks of alcohol Types: 6 Cans of beer per week Drug use: No Sexual activity: Not Currently Partners: Female Other Topics Concern Not on file Social History Narrative Not on file Social Determinants of Health Financial Resource Strain: Low Risk (05/03/2020) Overall Financial Resource Strain (CARDIA) Difficulty of Paying Living Expenses: Not very hard Food Insecurity: No Food Insecurity (12/26/2023) Hunger Screening Food Insecurity - Worry: Never True Food Insecurity - Inability: Never True Transportation Needs: No Transportation Needs (05/03/2020) PRAPARE - Transportation Lack of Transportation (Medical): No Lack of Transportation (Non-Medical): No Physical Activity: Sufficiently Active (05/03/2020) Exercise Vital Sign Days of Exercise per Week: 6 days Minutes of Exercise per Session: 40 min Stress: No Stress Concern Present (05/03/2020) [place] [employer] - Occupational Stress Questionnaire Feeling of Stress : Not at all Social Connections: Socially Integrated (05/03/2020) Social Connection and Isolation Panel [NHANES] Frequency of Communication with Friends and Family: More than three times a week Frequency of Social Gatherings with Friends and Family: Twice a week Attends [employer] Services: 1 to 4 times per year Active Member of Clubs or Organizations: Yes Attends Club or Organization Meetings: 1 to 4 times per year Marital Status: Interpersonal Safety: Not At Risk (05/03/2020) Humiliation, Afraid, Rape, and Kick questionnaire Fear of Current or Ex-Partner: No Emotionally Abused: No Physically Abused: No Sexually Abused: No Housing Instability: Not on file Allergies Allergen Reactions Ciprofloxacin Hives Codeine Unsure of reaction Erythromycin Hives And anxiousness Lanolin Hives Lisinopril Swelling Meloxicam GI Disturbance Pork Derived (Porcine) Hives If he eats 2 days in a row Sulfa (Sulfonamide Antibiotics) Hives Current Facility-Administered Medications Medication Dose Route Frequency Provider Last Rate Last Admin ampicillin-sulbactam (UNASYN) 3,000 mg in sodium chloride 0.9 % 100 mL IVPB-MBP 3,000 mg intravenous Once Fadi Mata, DO sodium chloride 0.9 % infusion 250 mL/hr intravenous Continuous Fadi Mata, DO Current Outpatient Medications Medication Sig Dispense Refill albuterol (PROVENTIL HFA;VENTOLIN HFA) 90 mcg/actuation inhaler Inhale 2 puffs every 6 (six) hours as needed for wheezing. allopurinoL (ZYLOPRIM) 300 mg tablet TAKE ONE TABLET BY MOUTH EVERY MORNING 90 tablet 3 amLODIPine (NORVASC) 10 mg tablet take 1 tablet by mouth every morning 90 tablet 2 amoxicillin-pot clavulanate (AUGMENTIN) 875-125 mg per tablet Take 1 tablet by mouth every 12 (twelve) hours for 14 days. 28 tablet 0 aspirin 81 mg Take 1 tablet (81 mg total) by mouth in the morning. ciprofloxacin-dexAMETHasone (CIPRODEX) otic suspension Administer 4 drops to the right ear in the morning and 4 drops before bedtime. Do all this for 4 days. 7.5 mL 0 fluticasone propionate (FLOVENT HFA) 110 mcg/actuation inhaler Inhale 2 puffs once daily. Patient only takes when sick 12 g 3 hydrocortisone-acetic acid (VOSOL-HC) otic solution Administer 4 drops to the right ear 3 (three) times a day. 10 mL 0 methylPREDNISolone (MEDROL, JACQUELIN,) 4 mg tablet Take as directed 21 tablet 0 uetvmhyg-nllk-RL-calcium &mins (THERAGRAN-M) 9 mg iron-400 mcg tablet Take 1 tablet by mouth in the morning. omega-3 fatty acids-fish oil 300-1,000 mg capsule Take 1,200 mg by mouth daily. omeprazole (PriLOSEC) 20 mg capsule take 2 capsules by mouth every morning 180 capsule 2 simvastatin (ZOCOR) 20 mg tablet TAKE ONE TABLET BY MOUTH EVERY MORNING 90 tablet 3 tobramycin-dexAMETHasone (Tobradex) ophthalmic solution Administer 4 drops to the right ear every 4 (four) hours while awake for 7 days. 10 mL 0 traMADoL (ULTRAM) 50 mg tablet Take 1 tablet (50 mg total) by mouth every 8 (eight) hours as needed for pain for up to 5 days. 15 tablet 0 REVIEW OF SYSTEMS: Review of Systems Constitutional: Negative for chills and fever. HENT: Positive for ear discharge (right), ear pain (right) and hearing loss (right). Negative for sore throat. Eyes: Negative for photophobia and visual disturbance. Respiratory: Negative for cough and shortness of breath. Cardiovascular: Negative for chest pain. Gastrointestinal: Negative for nausea and vomiting. Musculoskeletal: Positive for neck pain (right-sided). Neurological: Positive for headaches. Negative for dizziness. Data Reviewed: Recent Results (from the past 24 hour(s)) CBC auto differential Collection Time: 12/26/23 1:18 PM Result Value Ref Range White Blood Cells 9.1 4.0 - 11.0 X10E9/L RBC count 6.05 (H) 4.10 - 5.70 X10E12/L Hemoglobin 19.3 (H) 13.0 - 17.0 g/dL Hematocrit 55.4 (H) 39 - 49 % MCV 92 80 - 100 fL MCH 31.9 27 - 34 pg MCHC 34.9 32 - 36 g/dL RDW 14.8 11.5 - 15.0 % Platelets 180 150 - 450 X10E9/L MPV 8.1 7 - 12 fL % neutrophils 75.0 % % lymphocytes 12.1 % % monocytes 10.0 % % eosinophils 2.3 % % Basophils 0.6 % Neutrophils Absolute (A) 6.8 (H) 1.5 - 6.6 X10E9/L Lymphocytes Absolute 1.1 1.0 - 3.5 X10E9/L Monocytes Absolute 0.9 0 - 0.9 X10E9/L Eosinophils Absolute 0.2 0.0 - 0.4 X10E9/L Basophils Absolute 0.1 0.0 - 0.2 X10E9/L Basic Metabolic Panel Collection Time: 12/26/23 1:18 PM Result Value Ref Range Sodium 138 134 - 146 mmol/L Potassium, Bld 4.2 3.5 - 5.0 mmol/L Chloride 99 98 - 109 mmol/L CO2 26 22 - 32 mmol/L Anion gap 13 5 - 15 mmol/L BUN 13 5 - 27 mg/dL Creatinine 0.91 0.60 - 1.30 mg/dL Glucose 88 65 - 99 mg/dL Calcium 9.6 8.5 - 10.5 mg/dL eGFR (CKD-EPI)non-race dependent 90 >59 ml/min/1.73sq.m PHYSICAL EXAMINATION: BP (!) 166/101 Pulse 71 Temp 36.7 C (98.1 F) Resp 16 Ht 177.8 cm (5' 10 ) Wt 94.2 kg (207 lb 10.8 oz) SpO2 96% BMI 29.80 kg/m Constitutional: Healthy, Alert, Cooperative, and In No Apparent Distress, Normal Ability to Communicate, and appears uncomfortable Voice normal quality and volume Head/Face: Normocephalic, without obvious abnormalities present, salivary glands normal, Atraumatic, Sinuses nontender without overlying facial swelling or deformity, and facial nerve intact bilaterally Eyes: No gross abnormalities., Gaze Alignment Straight, No spontaneous nystagmus at rest, PERRL, EOMI, and No visible upper eyelid ptosis Ear: RIGHT: Auricle: normal size, shape, without obvious skin lesions, Normal hearing in exam room, No visible erythema or swelling overlying mastoid region., and fresh bright red blood present in canal, TM is obscured, PE tube that was recently placed is not visualized. LEFT: Auricle: normal size, shape, without obvious skin lesions, Normal hearing in exam room, External ear canal normal: no otorrhea, lesions, skin erythema, or swelling, Tympanic Membrane Intact, visible middle ear space appears aerated., and No visible erythema or swelling overlying mastoid region. Nose: Normal external nasal skin & alignment upper and lower nasal cartilages, without obvious deformity, caudal septum midline, normal intranasal mucosa, normal turbinates, and no nasal polyps, masses, or signs of recent/active bleeding Oral: Normal appearance upper and lower lips, Buccal Mucosa: normal appearance bilaterally, moist, Age appropriate dentition, Normal gingiva without lesions, Floor of mouth: mucosa normal, no palpable masses, no visible lesions. Clear saliva flow bilateral submandibular ducts., Anterior tongue: Dorsal & Ventral mucosa normal. Protrudes side to side without restriction. No palpable masses., and Normal hard palate Oropharynx: normal-appearing mucosa, no pharyngitis, no exudate, and normal soft palate and uvula TMJ: no pain, crepitus, or trismus Neck: normal, supple, no adenopathy, thyroid normal in size, no nodules or tenderness, and no neck masses palpable Respiration: No stridor, Normal respiratory effort. Chest expands symmetrically. Cardiovascular: Regular rate. Neurologic: Grossly normal Alert Oriented X 3 Affect normal Cranial nerves 2 -12 grossly intact ASSESSMENT/PLAN: Assessment: 1. Right otitis externa 2. Right suppurative otitis media with effusion 3. Otorrhagia, likely due to recent myringotomy and PE tube placement Plan: Continue administering Ciprodex in the right ear, 4 drops twice daily IV antibiotics, recommend Unasyn Obtain CT temporal bones with and without contrast ENT will continue to follow Discussed with Dr. Sloan MILLER PA-C [facility] Ear, Nose and Throat Contact Office during business hours After Hours Answering Service Please note that parts of this chart were generated using voice recognition [employer] dictation software. Although every effort was made to ensure the accuracy of this automated industrial rehabilitation consultant, some errors in industrial rehabilitation consultant may have occurred. Mag Miller PA-C 12/26/23 5601 Mag Miller PA-C 12/26/23 1506 IBalaji DO, personally performed the face to face diagnostic evaluation on this patient. I have reviewed the MARTÍN's History, Exam, and MDM and agree with the assessment and plan as written. Balaji Lisa DO 12/26/2023 2105 documented in this encounter [facility] 12-27-2023 Plan of care note Problem: Pain Goal: Patient goal is pain score less than 4, able to rest, and participant in treatment plan as appropriate Description: INTERVENTIONS: 1. Encourage patient or legal territory service representative to report early pain and ask for pain medicine when needed 2. Assess pain using appropriate pain scale and include the scale used when documenting 3. Administer analgesics based on type and severity of pain and evaluate response within appropriate time frame 4. Implement non-pharmacological measures as appropriate and evaluate response 5. Consider cultural and social influences on pain and pain management 6. Notify LIP if interventions ineffective or patient reports new pain 7. Monitor vital signs including pulse ox, end-tidal CO2 based on pain intervention 8. Reassess pain per policy 9. Teach patient or legal territory service representative interventions for comforting Outcome: Progressing Note: Evaluation of progress towards goal: pt denies pain at this time, plan of care ongoing. Problem: Safety Goal: Patient will be injury free during hospitalization Description: INTERVENTIONS: 1. Assess patient's risk for falls and implement fall prevention plan of care per policy 2. Provide and maintain a safe environment 3. Proper use of double Identifiers 4. Medication administration using the 5 rights 5. Hand hygiene 6. Specimens are labeled at the bedside 7. Instruct patient/ patient territory service representative about use of safety devices 8. Include patient/ patient territory service representative in decisions related to safety Outcome: Progressing Note: Evaluation of progress towards goal: Pt walkway clear and well lit. Safety measures in place, plan of care ongoing. Problem: Infection Goal: Absence of infection during hospitalization Description: Interventions: 1. Assess and monitor for signs and symptoms of infection 2. Monitor lab/diagnostic results 3. Monitor all insertion sites i.e., indwelling lines, tubes and drains 4. Monitor endotracheal (as able) and nasal secretions for changes in amount and color 5. Administer medications as ordered 6. Instruct and encourage patient and family to use good hand hygiene technique 7. Identify and instruct patient/patient territory service representative in use of appropriate isolation precautions for identified infection/symptoms 8. Provide and discuss with patient/patient territory service representative on educational MDRO sheet 9. Encourage and monitor nutritional status daily and consult apparel pattern maker if indicated 10. Implement neutropenic guidelines as needed 11. Review exposure to history of communicable disease and recent travel history on admission 12. Encourage annual influenza vaccine 13. Encourage pneumonia vaccine Outcome: Progressing Note: Evaluation of progress towards goal: Pt denies fever., no purulent drainage noted. Plan of care on going. Problem: Knowledge Deficit Goal: Patient/patient territory service representative demonstrates understanding of disease process, treatment plan, medications, and discharge instructions Description: INTERVENTIONS 1. Complete learning assessment and assess knowledge base 2. Provide teaching at level of understanding 3. Provide teaching via preferred learning method(s) Outcome: Progressing Note: Evaluation of progress towards goal: Will continue to assess pt and educate until verbalizing a level of understanding. Problem: Discharge Planning Goal: Discharge to post-acute care, other facility, or home with appropriate resources Description: Patient's goal is: INTERVENTIONS 1. Conduct assessment to determine patient/family and health care team treatment goals, and need for post-acute services based on payer coverage, community resources, and patient preferences, and barriers to discharge 2. Coordinate with Social work, Care Navigation, and Utilization Review to arrange appropriate level of services according to patient's needs based on patient preference and payer coverage in collaboration with the physician and health care team 3. Address psychosocial, clinical, and financial barriers to discharge as identified in assessment in conjunction with the patient/family and health care team 4. Consult appropriate ancillary services (i.e.. PT/OT/ST, etc) as needed 5. Communicate with and update the patient/family, physician, and health care team regarding progress on the discharge plan 6. Identify discharge learning needs (meds, wound care, etc). 7. Arrange for needed discharge transportation as appropriate Outcome: Progressing Note: Evaluation of progress towards goal: Pt will be discharged with appropriate resources. [facility] 12-27-2023 Plan of care note Problem: Pain Goal: Patient goal is pain score less than 4, able to rest, and participant in treatment plan as appropriate Description: INTERVENTIONS: 1. Encourage patient or legal territory service representative to report early pain and ask for pain medicine when needed 2. Assess pain using appropriate pain scale and include the scale used when documenting 3. Administer analgesics based on type and severity of pain and evaluate response within appropriate time frame 4. Implement non-pharmacological measures as appropriate and evaluate response 5. Consider cultural and social influences on pain and pain management 6. Notify LIP if interventions ineffective or patient reports new pain 7. Monitor vital signs including pulse ox, end-tidal CO2 based on pain intervention 8. Reassess pain per policy 9. Teach patient or legal territory service representative interventions for comforting Outcome: Progressing Note: Evaluation of progress towards goal: Pt encouraged to monitor one's own pain. PRN pain meds available. Continue to monitor pt. Problem: Safety Goal: Patient will be injury free during hospitalization Description: INTERVENTIONS: 1. Assess patient's risk for falls and implement fall prevention plan of care per policy 2. Provide and maintain a safe environment 3. Proper use of double Identifiers 4. Medication administration using the 5 rights 5. Hand hygiene 6. Specimens are labeled at the bedside 7. Instruct patient/ patient territory service representative about use of safety devices 8. Include patient/ patient territory service representative in decisions related to safety Outcome: Progressing Note: Evaluation of progress towards goal: Pt will be free of injury during hospitalization. Pt is educated on hourly rounding and call light system. Problem: Infection Goal: Absence of infection during hospitalization Description: Interventions: 1. Assess and monitor for signs and symptoms of infection 2. Monitor lab/diagnostic results 3. Monitor all insertion sites i.e., indwelling lines, tubes and drains 4. Monitor endotracheal (as able) and nasal secretions for changes in amount and color 5. Administer medications as ordered 6. Instruct and encourage patient and family to use good hand hygiene technique 7. Identify and instruct patient/patient territory service representative in use of appropriate isolation precautions for identified infection/symptoms 8. Provide and discuss with patient/patient territory service representative on educational MDRO sheet 9. Encourage and monitor nutritional status daily and consult apparel pattern maker if indicated 10. Implement neutropenic guidelines as needed 11. Review exposure to history of communicable disease and recent travel history on admission 12. Encourage annual influenza vaccine 13. Encourage pneumonia vaccine Outcome: Progressing Note: Evaluation of progress towards goal: Pt is free of signs and symptoms of infection, Continue to monitor labs and pt. Problem: Knowledge Deficit Goal: Patient/patient territory service representative demonstrates understanding of disease process, treatment plan, medications, and discharge instructions Description: INTERVENTIONS 1. Complete learning assessment and assess knowledge base 2. Provide teaching at level of understanding 3. Provide teaching via preferred learning method(s) Outcome: Progressing Note: Evaluation of progress towards goal: Pt is updated on plan of care. No questions or concerns voiced at this time. Problem: Moderate - High Risk Fall Score Description: Gonzales Fall Score of =/> 25 or indicated by [facility] Assessment Goal: Patient should be free from fall Description: Interventions: 1. [place] to environment 2. Hourly rounds addressing the 4 P's (Pain, Positioning, Possessions, Potty) 3. Clear area of hazards (spills, clutter, electrical cords, unnecessary equipment) 4. Place equipment (bed & TV controls, call light, phone, urinal) within reach 5. Encourage patient to wear glasses and hearing aides as appropriate 6. Maintain bed in lowest position 7. Lock wheels on bed/wheelchair 8. Provide adequate lighting, including night light 9. Assess need for additional bedding, food/fluids, pain med's prior to sleep/routinely 10. Provide gripper slippers or personal non-skid footwear 11. Teach patient and patient territory service representative to maintain environment for safety and engage in all aspects of fall prevention program 12. Remind patient to call for help before getting out of bed 13. Initiate bed/chair/exit alarms supportive devices as appropriate, (chair wedge, no-skid floor mat, raised edge mattress, hip protectors) 14. Locate patient bed assignment for optimal visualization 15. Evaluate and identify Safe Patient Handling Equipment needs 16. Provide supervision when out of bed or chair 17. Utilize gait belt as needed to assist with ambulation 18. Place adaptive equipment (cane, walker) within reach 19. Request patient territory service representative bring adaptive equipment/mobility aids from home or obtain and provide as needed 20. Consult pharmacy regarding effects of med's affecting mobility, cognition, and alternatives 21. Obtain physician order for PT if risk factors associated with mobility are present 22. Obtain physician order for OT as appropriate 23. Utilize diversional activities 24. Educate patient and patient territory service representative how to maintain a safe environment during visitation times (notify nurse prior to leaving bedside) 25. Consider appropriateness of medical or non-medical billing clerk 26. Set up voiding schedule as appropriate (every 2 hours) Outcome: Progressing Note: Evaluation of progress towards goal: Pt will be free of falls during admission. [facility] 12-26-2023 Plan of care note Problem: Safety Goal: Patient will be injury free during hospitalization Description: INTERVENTIONS: 1. Assess patient's risk for falls and implement fall prevention plan of care per policy 2. Provide and maintain a safe environment 3. Proper use of double Identifiers 4. Medication administration using the 5 rights 5. Hand hygiene 6. Specimens are labeled at the bedside 7. Instruct patient/ patient territory service representative about use of safety devices 8. Include patient/ patient territory service representative in decisions related to safety Outcome: Progressing Note: Evaluation of progress towards goal: Assess safety q4h, prn. Bed in low and locked position. Call light in reach. Safety maintained. [facility] 12-26-2023 Emergency department Note Bed: 28 Expected date: Expected time: Means of arrival: Comments: RS to obs 33 [facility] 12-26-2023 Emergency department Note Bed: 28 Expected date: Expected time: Means of arrival: Comments: RS to obs 33 Images from the original note were not included. History Chief Complaint Patient presents with Ear Problem Initial evaluation done by Dr. Kash Mata at 13:07. Patient is a 73 y/o male reporting to ED with chief complaint of ear problem. Patient is coming from his ENT's office for further evaluation of his right ear. For the last 4 weeks, patient has been having right ear pain that has been concerning for further bone infection. He is aware that the outer and inner ear are already infected. Confirms difficulty hearing, difficulty swallowing/chewing, neck pain and neck stiffness. No pertinent medical hx reported. Allergies ciprofloxacin, codeine, erythromycin, lanolin, lisinopril, meloxicam and sulfa. History provided by: Patient Ear Problem Associated symptoms: ear pain (right) Problem List Items Addressed This Visit None Past Medical History: Diagnosis Date Arthritis Asthma GERD (gastroesophageal reflux disease) Gout HL (hearing loss) Hyperlipidemia Hypertension Pneumonia Prostate cancer (CMS-HCC) Visual impairment Past Surgical History: Procedure Laterality Date APPENDECTOMY CARDIAC CATHETERIZATION COLONOSCOPY COLONOSCOPY DIAGNOSTIC / SCREENING N/A 02/21/2023 Performed by Buddy Ureña MD at [facility] JOINT REPLACEMENT 01/02/2020 PROSTATE BIOPSY PROSTATECTOMY REPLACEMENT TOTAL KNEE Right TOOTH EXTRACTION VASECTOMY 1988 Travel Screening Question Response Have you been in contact with someone who was sick? No / Unsure Do you have any of the following new or worsening symptoms? None of these Have you traveled internationally or domestically in the last month? No Travel History Travel since 11/26/23 No documented travel since 11/26/23 Family History Problem Relation Age of Onset Amy's disease Mother Asthma Mother Heart disease Father Social History Substance and Sexual Activity Drug Use No Social History Tobacco Use Smoking status: Former Current packs/day: 0.50 Types: Cigarettes Smokeless tobacco: Never Vaping Use Vaping status: Never Used Substance Use Topics Alcohol use: Yes Alcohol/week: 6.0 standard drinks of alcohol Types: 6 Cans of beer per week Drug use: No Review of Systems HENT: Positive for ear pain (right), hearing loss (right ear) and trouble swallowing. Confirms trouble chewing Physical Exam ED Triage Vitals [12/26/23 1231] Temp Heart Rate Resp BP SpO2 36.7 C (98.1 F) 71 16 (!) 166/101 96 % Temp src Heart Rate Source Patient Position BP Location FiO2 (%) -- -- -- -- -- Vitals: 12/26/23 1231 BP: (!) 166/101 Temp: 36.7 C (98.1 F) Pulse: 71 Resp: 16 SpO2: 96% Height: 177.8 cm (5' 10 ) Weight: 94.2 kg (207 lb 10.8 oz) Physical Exam Vitals and nursing note reviewed. Constitutional: General: He is awake. He is not in acute distress. Appearance: Normal appearance. He is normal weight. He is not ill-appearing or toxic-appearing. HENT: Head: Normocephalic and atraumatic. Jaw: There is normal jaw occlusion. Right Ear: Tympanic membrane normal. Swelling (around mastoid) present. There is mastoid tenderness. Left Ear: Tympanic membrane normal. Ears: Comments: Tenderness and swelling to anterior right ear and upper anterior cervical nodes Nose: Nose normal. Mouth/Throat: Lips: [place]. Mouth: Mucous membranes are moist. Pharynx: Oropharynx is clear. Uvula midline. Eyes: General: Lids are normal. Vision grossly intact. Extraocular Movements: Extraocular movements intact. Conjunctiva/sclera: Conjunctivae normal. Pupils: Pupils are equal, round, and reactive to light. Neck: Trachea: Trachea normal. Cardiovascular: Rate and Rhythm: Normal rate and regular rhythm. Pulses: Normal pulses. Heart sounds: Normal heart sounds. Pulmonary: Effort: Pulmonary effort is normal. Breath sounds: Normal breath sounds. No wheezing, rhonchi or rales. Abdominal: General: Abdomen is flat. Bowel sounds are normal. Palpations: Abdomen is soft. Tenderness: There is no abdominal tenderness. There is no right CVA tenderness, left CVA tenderness, guarding or rebound. Musculoskeletal: General: Normal range of motion. Cervical back: Normal range of motion and neck supple. Right lower leg: Normal. No edema. Left lower leg: Normal. No edema. Skin: General: Skin is warm. Capillary Refill: Capillary refill takes less than 2 seconds. Neurological: General: No focal deficit present. Mental Status: He is alert and oriented to person, place, and time. Mental status is at baseline. GCS: GCS eye subscore is 4. GCS verbal subscore is 5. GCS motor subscore is 6. Cranial Nerves: No cranial nerve deficit. Sensory: Sensation is intact. No sensory deficit. Motor: Motor function is intact. Coordination: Coordination is intact. Gait: Gait is intact. Deep Tendon Reflexes: Reflexes are normal and symmetric. Psychiatric: Behavior: Behavior is cooperative. Procedure Procedures Re-Evaluation Re-Evaluation ED Course Clinical Impressions as of 12/26/23 1441 Mastoiditis of right side 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 MDM Medical Decision Making Agustina Sandoval) documented for Dr. Kash Mata. Chart Reviewed. Chief Complaint: Ear Problem Differential Diagnosis includes but is not limited to: Mastoiditis Plan of Care: Labs include Blood culture, BMP, CBC. Imaging includes CT Temporal Bones, CT Neck Soft Tissue. Medications inlcude unasyn. 14:44 Labs notable for: RBC 6.05, Hemoglobin 19.3, Hematocrit 55.4 Imaging pending. 14:44 Based on the diagnostic results and physical exam, pt requires admission Amount and/or Complexity of Data Reviewed Labs: ordered. Radiology: ordered. Risk Prescription drug management. RESULTS Labs: Labs Reviewed CBC WITH AUTO DIFFERENTIAL - Abnormal; Notable for the following components: Result Value RBC count 6.05 (*) Hemoglobin 19.3 (*) Hematocrit 55.4 (*) Neutrophils Absolute (A) 6.8 (*) All other components within normal limits BLOOD CULTURE BLOOD CULTURE BASIC METABOLIC PANEL Radiology: No results found. NURSING NOTES AND VITALS REVIEWED The nursing notes within the ED encounter and vital signs as below have been reviewed. BP 142/90 Pulse 78 Temp 36.7 C (98.1 F) Resp 16 Ht 177.8 cm (5' 10 ) Wt 94.2 kg (207 lb 10.8 oz) SpO2 93% BMI 29.80 kg/m PROGRESS NOTES The plan of care has been discussed with patient including today s results, in addition to providing specific details regarding counseling pertaining to the diagnosis and prognosis. All questions were answered at this time and they are agreeable with the plan - ADDITIONAL PROVIDER NOTES - At this time the patient has objective evidence of an acute process requiring hospitalization or inpatient management. Medications ampicillin-sulbactam (UNASYN) 3,000 mg in sodium chloride 0.9 % 100 mL IVPB-MBP (has no administration in time range) sodium chloride 0.9 % infusion (has no administration in time range) Medication List None Diagnosis: 1. Mastoiditis of right side 2. 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 Disposition: Patient's disposition: Admit Patient's condition is stable. Critical Care time: 0 minutes Provider Statement By electronically signing this emergency patient record, the Emergency Physician/FOLDER MACHINE/PA-C attests that all entries made into the electronic medical record by kala Pan prior to the Physician/FOLDER MACHINE/PA-C signature reflect an accurate accounting of the evaluation and care rendered by that Emergency Physician/FOLDER MACHINE/PA-C. The Emergency Physician/FOLDER MACHINE/PA-C assumes full responsibility for those entries. The Emergency Physician/FOLDER MACHINE/PA-C also attests that any patient testing or treatment that was instituted by nursing staff in accordance to Emergency Department Preemptive Guidelines have been reviewed and unless so stated elsewhere in this patient chart, the Physician/FOLDER MACHINE/PA-C agrees with the testing and care provided. Provider Statement: By electronically signing this emergency patient record, the Emergency Physician/FOLDER MACHINE/PA-C attests that all entries made into the electronic medical record by the scribe prior to the Physician/FOLDER MACHINE/PA-C signature reflect an accurate accounting of the evaluation and care rendered by that Emergency Physician/FOLDER MACHINE/PA-C. The Emergency Physician/FOLDER MACHINE/PA-C assumes full responsibility for those entries. Hellen Genao 12/26/23 1614 Fadi Mata DO 12/27/23 0727 Patient sent to the from the ENT office to be admitted for mastoiditis; ENT requesting CT, IV antibiotics and admission to medicine; right ear noted to have a gauze dressing inside it; patient alert and oriented X 4; ambulatory documented in this encounter [facility] 12-26-2023 History and physical note Images from the original note were not included. [facility] History & Physical: 12/26/2023 Patient Name: Yue Delgadillo : 1950 Subjective: Chief Complaint: Chief Complaint Patient presents with Ear Problem HPI: Yue Delgadillo is a 73 y.o. male with asthma, essential hypertension, presenting from ENT outpatient clinic due to persistent right-sided otitis externa refractory to oral antibiotics and otic drops. He had wick placement and was taking Augmentin and using ciprodex drops. In ENT clinic today he had a right myringotomy with tube placement. He notes that the initial infection began about 1 month ago after swimming in a pond. He reports pain in the right ear and right jaw. He has been tolerating diet. Denies history of prior ear infections. In the ED, vital signs were relatively unremarkable aside from elevated blood pressure readings. Lab workup also relatively unremarkable aside from elevated hemoglobin. Past Medical History: Diagnosis Date Arthritis Asthma GERD (gastroesophageal reflux disease) Gout HL (hearing loss) Hyperlipidemia Hypertension Mastoiditis of right side 12/26/2023 Pneumonia Prostate cancer ([facility]) Visual impairment Past Surgical History: Procedure Laterality Date APPENDECTOMY CARDIAC CATHETERIZATION COLONOSCOPY COLONOSCOPY DIAGNOSTIC / SCREENING N/A 02/21/2023 Performed by Buddy Ureña MD at [facility] JOINT REPLACEMENT 01/02/2020 PROSTATE BIOPSY PROSTATECTOMY REPLACEMENT TOTAL KNEE Right TOOTH EXTRACTION VASECTOMY 1988 Allergy: Ciprofloxacin, Codeine, Erythromycin, Lanolin, Lisinopril, Meloxicam, Pork derived (porcine), and Sulfa (sulfonamide antibiotics) (Not in a hospital admission) Social History Socioeconomic History Marital status: Spouse name: Not on file Number of children: Not on file Years of education: Not on file Highest education level: Associate degree: occupational, technical, or vocational program Occupational History Not on file Tobacco Use Smoking status: Former Current packs/day: 0.50 Types: Cigarettes Smokeless tobacco: Never Vaping Use Vaping status: Never Used Substance and Sexual Activity Alcohol use: Yes Alcohol/week: 6.0 standard drinks of alcohol Types: 6 Cans of beer per week Drug use: No Sexual activity: Not Currently Partners: Female Other Topics Concern Not on file Social History Narrative Not on file Social Determinants of Health Financial Resource Strain: Low Risk (05/03/2020) Overall Financial Resource Strain (CARDIA) Difficulty of Paying Living Expenses: Not very hard Food Insecurity: No Food Insecurity (12/26/2023) Hunger Screening Food Insecurity - Worry: Never True Food Insecurity - Inability: Never True Transportation Needs: No Transportation Needs (12/26/2023) PRAPARE - Transportation Lack of Transportation (Medical): No Lack of Transportation (Non-Medical): No Physical Activity: Sufficiently Active (05/03/2020) Exercise Vital Sign Days of Exercise per Week: 6 days Minutes of Exercise per Session: 40 min Stress: No Stress Concern Present (05/03/2020) [place] [employer] - Occupational Stress Questionnaire Feeling of Stress : Not at all Social Connections: Socially Integrated (05/03/2020) Social Connection and Isolation Panel [NHANES] Frequency of Communication with Friends and Family: More than three times a week Frequency of Social Gatherings with Friends and Family: Twice a week Attends [employer] Services: 1 to 4 times per year Active Member of Clubs or Organizations: Yes Attends Club or Organization Meetings: 1 to 4 times per year Marital Status: Interpersonal Safety: Not At Risk (12/26/2023) Humiliation, Afraid, Rape, and Kick questionnaire Fear of Current or Ex-Partner: No Emotionally Abused: No Physically Abused: No Sexually Abused: No Housing Instability: Low Risk (12/26/2023) Housing Instability Housing Instability: No Family History Problem Relation Age of Onset [place]'s disease Mother Asthma Mother Heart disease Father Review of Systems: Review of Systems Constitutional: Negative for fever and appetite change. HENT: Positive for ear pain and hearing loss. Negative for congestion and rhinorrhea. Respiratory: Negative for cough and shortness of breath. Cardiovascular: Negative for chest pain and leg swelling. Gastrointestinal: Negative for vomiting, abdominal pain, diarrhea and constipation. Genitourinary: Negative for urgency and frequency. Neurological: Negative for seizures and coarse tremors. Psychiatric/Behavioral: Negative for confusion and hallucinations. Objective: Exam: Temp: [36.7 C (98.1 F)-36.8 C (98.2 F)] 36.7 C (98.1 F) Heart Rate: [70-78] 78 Resp: [16] 16 BP: (142-166)/(90-102) 142/90 SpO2: [93 %-96 %] 93 % O2 Device: None (Room air) No intake or output data in the 24 hours ending 12/26/23 1554 Physical Exam Vitals reviewed. Constitutional: General: He is not in acute distress. Appearance: He is not toxic-appearing. HENT: Head: Normocephalic. Ears: Comments: Cotton swab in right ear. No significant external ear or mastoid tenderness. Tenderness to right jaw at angle of mandible and right face. Eyes: General: Right eye: No discharge. Left eye: No discharge. Extraocular Movements: Extraocular movements intact. Cardiovascular: Rate and Rhythm: Normal rate. Heart sounds: No murmur heard. Pulmonary: Effort: Pulmonary effort is normal. Breath sounds: No wheezing or rales. Abdominal: General: Abdomen is flat. There is no distension. Musculoskeletal: Right lower leg: No edema. Left lower leg: No edema. Skin: General: Skin is warm. Findings: No rash. Neurological: Mental Status: He is alert. Mental status is at baseline. Psychiatric: Mood and Affect: Mood normal. Behavior: Behavior normal. Thought Content: Thought content normal. Labs: Recent Results (from the past 48 hour(s)) CBC auto differential Collection Time: 12/26/23 1:18 PM Result Value Ref Range White Blood Cells 9.1 4.0 - 11.0 X10E9/L RBC count 6.05 (H) 4.10 - 5.70 X10E12/L Hemoglobin 19.3 (H) 13.0 - 17.0 g/dL Hematocrit 55.4 (H) 39 - 49 % MCV 92 80 - 100 fL MCH 31.9 27 - 34 pg MCHC 34.9 32 - 36 g/dL RDW 14.8 11.5 - 15.0 % Platelets 180 150 - 450 X10E9/L MPV 8.1 7 - 12 fL % neutrophils 75.0 % % lymphocytes 12.1 % % monocytes 10.0 % % eosinophils 2.3 % % Basophils 0.6 % Neutrophils Absolute (A) 6.8 (H) 1.5 - 6.6 X10E9/L Lymphocytes Absolute 1.1 1.0 - 3.5 X10E9/L Monocytes Absolute 0.9 0 - 0.9 X10E9/L Eosinophils Absolute 0.2 0.0 - 0.4 X10E9/L Basophils Absolute 0.1 0.0 - 0.2 X10E9/L Basic Metabolic Panel Collection Time: 12/26/23 1:18 PM Result Value Ref Range Sodium 138 134 - 146 mmol/L Potassium, Bld 4.2 3.5 - 5.0 mmol/L Chloride 99 98 - 109 mmol/L CO2 26 22 - 32 mmol/L Anion gap 13 5 - 15 mmol/L BUN 13 5 - 27 mg/dL Creatinine 0.91 0.60 - 1.30 mg/dL Glucose 88 65 - 99 mg/dL Calcium 9.6 8.5 - 10.5 mg/dL eGFR (CKD-EPI)non-race dependent 90 >59 ml/min/1.73sq.m Images: No results found. Assessment and Plan: Principal Problem: Mastoiditis of right side Right otitis media with effusion Continue Ciprodex drops IV Unasyn CT neck and CT temporal bones pending ENT following Pain control with Tramadol and scheduled tylenol Essential hypertension Continue home Amlodipine Asthma, not in exacerbation Only uses Flovent when needed GERD Continue home prilosec DVT prophylaxis Doug score of 2 for acute infection and age >70, pharmacologic prophylaxis not indicated, SCDs only [facility] 12-26-2023 History and physical note Images from the original note were not included. [facility] History & Physical: 12/26/2023 Patient Name: Yue Delgadillo : 1950 Subjective: Chief Complaint: Chief Complaint Patient presents with Ear Problem HPI: Yue Delgadillo is a 73 y.o. male with asthma, essential hypertension, presenting from ENT outpatient clinic due to persistent right-sided otitis externa refractory to oral antibiotics and otic drops. He had wick placement and was taking Augmentin and using ciprodex drops. In ENT clinic today he had a right myringotomy with tube placement. He notes that the initial infection began about 1 month ago after swimming in a pond. He reports pain in the right ear and right jaw. He has been tolerating diet. Denies history of prior ear infections. In the ED, vital signs were relatively unremarkable aside from elevated blood pressure readings. Lab workup also relatively unremarkable aside from elevated hemoglobin. Past Medical History: Diagnosis Date Arthritis Asthma GERD (gastroesophageal reflux disease) Gout HL (hearing loss) Hyperlipidemia Hypertension Mastoiditis of right side 12/26/2023 Pneumonia Prostate cancer ([facility]) Visual impairment Past Surgical History: Procedure Laterality Date APPENDECTOMY CARDIAC CATHETERIZATION COLONOSCOPY COLONOSCOPY DIAGNOSTIC / SCREENING N/A 02/21/2023 Performed by Buddy Ureña MD at [facility] JOINT REPLACEMENT 01/02/2020 PROSTATE BIOPSY PROSTATECTOMY REPLACEMENT TOTAL KNEE Right TOOTH EXTRACTION VASECTOMY 1988 Allergy: Ciprofloxacin, Codeine, Erythromycin, Lanolin, Lisinopril, Meloxicam, Pork derived (porcine), and Sulfa (sulfonamide antibiotics) (Not in a hospital admission) Social History Socioeconomic History Marital status: Spouse name: Not on file Number of children: Not on file Years of education: Not on file Highest education level: Associate degree: occupational, technical, or vocational program Occupational History Not on file Tobacco Use Smoking status: Former Current packs/day: 0.50 Types: Cigarettes Smokeless tobacco: Never Vaping Use Vaping status: Never Used Substance and Sexual Activity Alcohol use: Yes Alcohol/week: 6.0 standard drinks of alcohol Types: 6 Cans of beer per week Drug use: No Sexual activity: Not Currently Partners: Female Other Topics Concern Not on file Social History Narrative Not on file Social Determinants of Health Financial Resource Strain: Low Risk (05/03/2020) Overall Financial Resource Strain (CARDIA) Difficulty of Paying Living Expenses: Not very hard Food Insecurity: No Food Insecurity (12/26/2023) Hunger Screening Food Insecurity - Worry: Never True Food Insecurity - Inability: Never True Transportation Needs: No Transportation Needs (12/26/2023) PRAPARE - Transportation Lack of Transportation (Medical): No Lack of Transportation (Non-Medical): No Physical Activity: Sufficiently Active (05/03/2020) Exercise Vital Sign Days of Exercise per Week: 6 days Minutes of Exercise per Session: 40 min Stress: No Stress Concern Present (05/03/2020) [place] [employer] - Occupational Stress Questionnaire Feeling of Stress : Not at all Social Connections: Socially Integrated (05/03/2020) Social Connection and Isolation Panel [NHANES] Frequency of Communication with Friends and Family: More than three times a week Frequency of Social Gatherings with Friends and Family: Twice a week Attends [employer] Services: 1 to 4 times per year Active Member of Clubs or Organizations: Yes Attends Club or Organization Meetings: 1 to 4 times per year Marital Status: Interpersonal Safety: Not At Risk (12/26/2023) Humiliation, Afraid, Rape, and Kick questionnaire Fear of Current or Ex-Partner: No Emotionally Abused: No Physically Abused: No Sexually Abused: No Housing Instability: Low Risk (12/26/2023) Housing Instability Housing Instability: No Family History Problem Relation Age of Onset Amy's disease Mother Asthma Mother Heart disease Father Review of Systems: Review of Systems Constitutional: Negative for fever and appetite change. HENT: Positive for ear pain and hearing loss. Negative for congestion and rhinorrhea. Respiratory: Negative for cough and shortness of breath. Cardiovascular: Negative for chest pain and leg swelling. Gastrointestinal: Negative for vomiting, abdominal pain, diarrhea and constipation. Genitourinary: Negative for urgency and frequency. Neurological: Negative for seizures and coarse tremors. Psychiatric/Behavioral: Negative for confusion and hallucinations. Objective: Exam: Temp: [36.7 C (98.1 F)-36.8 C (98.2 F)] 36.7 C (98.1 F) Heart Rate: [70-78] 78 Resp: [16] 16 BP: (142-166)/(90-102) 142/90 SpO2: [93 %-96 %] 93 % O2 Device: None (Room air) No intake or output data in the 24 hours ending 12/26/23 1554 Physical Exam Vitals reviewed. Constitutional: General: He is not in acute distress. Appearance: He is not toxic-appearing. HENT: Head: Normocephalic. Ears: Comments: Cotton swab in right ear. No significant external ear or mastoid tenderness. Tenderness to right jaw at angle of mandible and right face. Eyes: General: Right eye: No discharge. Left eye: No discharge. Extraocular Movements: Extraocular movements intact. Cardiovascular: Rate and Rhythm: Normal rate. Heart sounds: No murmur heard. Pulmonary: Effort: Pulmonary effort is normal. Breath sounds: No wheezing or rales. Abdominal: General: Abdomen is flat. There is no distension. Musculoskeletal: Right lower leg: No edema. Left lower leg: No edema. Skin: General: Skin is warm. Findings: No rash. Neurological: Mental Status: He is alert. Mental status is at baseline. Psychiatric: Mood and Affect: Mood normal. Behavior: Behavior normal. Thought Content: Thought content normal. Labs: Recent Results (from the past 48 hour(s)) CBC auto differential Collection Time: 12/26/23 1:18 PM Result Value Ref Range White Blood Cells 9.1 4.0 - 11.0 X10E9/L RBC count 6.05 (H) 4.10 - 5.70 X10E12/L Hemoglobin 19.3 (H) 13.0 - 17.0 g/dL Hematocrit 55.4 (H) 39 - 49 % MCV 92 80 - 100 fL MCH 31.9 27 - 34 pg MCHC 34.9 32 - 36 g/dL RDW 14.8 11.5 - 15.0 % Platelets 180 150 - 450 X10E9/L MPV 8.1 7 - 12 fL % neutrophils 75.0 % % lymphocytes 12.1 % % monocytes 10.0 % % eosinophils 2.3 % % Basophils 0.6 % Neutrophils Absolute (A) 6.8 (H) 1.5 - 6.6 X10E9/L Lymphocytes Absolute 1.1 1.0 - 3.5 X10E9/L Monocytes Absolute 0.9 0 - 0.9 X10E9/L Eosinophils Absolute 0.2 0.0 - 0.4 X10E9/L Basophils Absolute 0.1 0.0 - 0.2 X10E9/L Basic Metabolic Panel Collection Time: 12/26/23 1:18 PM Result Value Ref Range Sodium 138 134 - 146 mmol/L Potassium, Bld 4.2 3.5 - 5.0 mmol/L Chloride 99 98 - 109 mmol/L CO2 26 22 - 32 mmol/L Anion gap 13 5 - 15 mmol/L BUN 13 5 - 27 mg/dL Creatinine 0.91 0.60 - 1.30 mg/dL Glucose 88 65 - 99 mg/dL Calcium 9.6 8.5 - 10.5 mg/dL eGFR (CKD-EPI)non-race dependent 90 >59 ml/min/1.73sq.m Images: No results found. Assessment and Plan: Principal Problem: Mastoiditis of right side Right otitis media with effusion Continue Ciprodex drops IV Unasyn CT neck and CT temporal bones pending ENT following Pain control with Tramadol and scheduled tylenol Essential hypertension Continue home Amlodipine Asthma, not in exacerbation Only uses Flovent when needed GERD Continue home prilosec DVT prophylaxis Doug score of 2 for acute infection and age >70, pharmacologic prophylaxis not indicated, SCDs only documented in this encounter [facility] 12-26-2023 Consult note Associated Order (s): IP CONSULT TO ENT [facility] OTOL[facility]OLOG[facility] HEAD & NECK SURGERY SUBJECTIVE: Patient ID (1950): Yue Delgadillo is a 73 y.o. male with a past medical history of asthma, hypertension, hyperlipidemia, prostate cancer and vertigo. He presents directly to the ED after being seen in the outpatient ENT clinic today for persistent right-sided otitis externa with suppurative middle ear effusion refractory to Augmentin and multiple otic drops. A right myringotomy with PE tube placement was performed in office today, reportedly with significant difficulty. He states that this issue began roughly one-month ago after swimming in a pond. He states that at the onset he experienced intense right-sided ear pain radiating to the face and jaw, ear fullness and hearing loss. He also endorses headache and constant, high-pitched tinnitus that is intermittently pulsatile, which he denies prior to onset of infection. These symptoms continue currently and have worsened despite treatment mentioned above. He denies a previous history of similar issues. Visual disturbance, dizziness, nausea and vomiting are denied. HISTORY: Past Medical History: Diagnosis Date Arthritis Asthma GERD (gastroesophageal reflux disease) Gout HL (hearing loss) Hyperlipidemia Hypertension Pneumonia Prostate cancer ([facility]) Visual impairment Past Surgical History: Procedure Laterality Date APPENDECTOMY CARDIAC CATHETERIZATION COLONOSCOPY COLONOSCOPY DIAGNOSTIC / SCREENING N/A 02/21/2023 Performed by Buddy Ureña MD at [facility] JOINT REPLACEMENT 01/02/2020 PROSTATE BIOPSY PROSTATECTOMY REPLACEMENT TOTAL KNEE Right TOOTH EXTRACTION VASECTOMY 1988 Family History Problem Relation Age of Onset [place]'s disease Mother Asthma Mother Heart disease Father Social History Socioeconomic History Marital status: Spouse name: Not on file Number of children: Not on file Years of education: Not on file Highest education level: Associate degree: occupational, technical, or vocational program Occupational History Not on file Tobacco Use Smoking status: Former Current packs/day: 0.50 Types: Cigarettes Smokeless tobacco: Never Vaping Use Vaping status: Never Used Substance and Sexual Activity Alcohol use: Yes Alcohol/week: 6.0 standard drinks of alcohol Types: 6 Cans of beer per week Drug use: No Sexual activity: Not Currently Partners: Female Other Topics Concern Not on file Social History Narrative Not on file Social Determinants of Health Financial Resource Strain: Low Risk (05/03/2020) Overall Financial Resource Strain (CARDIA) Difficulty of Paying Living Expenses: Not very hard Food Insecurity: No Food Insecurity (12/26/2023) Hunger Screening Food Insecurity - Worry: Never True Food Insecurity - Inability: Never True Transportation Needs: No Transportation Needs (05/03/2020) PRAPARE - Transportation Lack of Transportation (Medical): No Lack of Transportation (Non-Medical): No Physical Activity: Sufficiently Active (05/03/2020) Exercise Vital Sign Days of Exercise per Week: 6 days Minutes of Exercise per Session: 40 min Stress: No Stress Concern Present (05/03/2020) [place] [employer] - Occupational Stress Questionnaire Feeling of Stress : Not at all Social Connections: Socially Integrated (05/03/2020) Social Connection and Isolation Panel [NHANES] Frequency of Communication with Friends and Family: More than three times a week Frequency of Social Gatherings with Friends and Family: Twice a week Attends [employer] Services: 1 to 4 times per year Active Member of Clubs or Organizations: Yes Attends Club or Organization Meetings: 1 to 4 times per year Marital Status: Interpersonal Safety: Not At Risk (05/03/2020) Humiliation, Afraid, Rape, and Kick questionnaire Fear of Current or Ex-Partner: No Emotionally Abused: No Physically Abused: No Sexually Abused: No Housing Instability: Not on file Allergies Allergen Reactions Ciprofloxacin Hives Codeine Unsure of reaction Erythromycin Hives And anxiousness Lanolin Hives Lisinopril Swelling Meloxicam GI Disturbance Pork Derived (Porcine) Hives If he eats 2 days in a row Sulfa (Sulfonamide Antibiotics) Hives Current Facility-Administered Medications Medication Dose Route Frequency Provider Last Rate Last Admin ampicillin-sulbactam (UNASYN) 3,000 mg in sodium chloride 0.9 % 100 mL IVPB-MBP 3,000 mg intravenous Once Fadi Mata, DO sodium chloride 0.9 % infusion 250 mL/hr intravenous Continuous Fadi Mata, DO Current Outpatient Medications Medication Sig Dispense Refill albuterol (PROVENTIL HFA;VENTOLIN HFA) 90 mcg/actuation inhaler Inhale 2 puffs every 6 (six) hours as needed for wheezing. allopurinoL (ZYLOPRIM) 300 mg tablet TAKE ONE TABLET BY MOUTH EVERY MORNING 90 tablet 3 amLODIPine (NORVASC) 10 mg tablet take 1 tablet by mouth every morning 90 tablet 2 amoxicillin-pot clavulanate (AUGMENTIN) 875-125 mg per tablet Take 1 tablet by mouth every 12 (twelve) hours for 14 days. 28 tablet 0 aspirin 81 mg Take 1 tablet (81 mg total) by mouth in the morning. ciprofloxacin-dexAMETHasone (CIPRODEX) otic suspension Administer 4 drops to the right ear in the morning and 4 drops before bedtime. Do all this for 4 days. 7.5 mL 0 fluticasone propionate (FLOVENT HFA) 110 mcg/actuation inhaler Inhale 2 puffs once daily. Patient only takes when sick 12 g 3 hydrocortisone-acetic acid (VOSOL-HC) otic solution Administer 4 drops to the right ear 3 (three) times a day. 10 mL 0 methylPREDNISolone (MEDROL, JACQUELIN,) 4 mg tablet Take as directed 21 tablet 0 jgsybawa-sfrj-AJ-calcium &mins (THERAGRAN-M) 9 mg iron-400 mcg tablet Take 1 tablet by mouth in the morning. omega-3 fatty acids-fish oil 300-1,000 mg capsule Take 1,200 mg by mouth daily. omeprazole (PriLOSEC) 20 mg capsule take 2 capsules by mouth every morning 180 capsule 2 simvastatin (ZOCOR) 20 mg tablet TAKE ONE TABLET BY MOUTH EVERY MORNING 90 tablet 3 tobramycin-dexAMETHasone (Tobradex) ophthalmic solution Administer 4 drops to the right ear every 4 (four) hours while awake for 7 days. 10 mL 0 traMADoL (ULTRAM) 50 mg tablet Take 1 tablet (50 mg total) by mouth every 8 (eight) hours as needed for pain for up to 5 days. 15 tablet 0 REVIEW OF SYSTEMS: Review of Systems Constitutional: Negative for chills and fever. HENT: Positive for ear discharge (right), ear pain (right) and hearing loss (right). Negative for sore throat. Eyes: Negative for photophobia and visual disturbance. Respiratory: Negative for cough and shortness of breath. Cardiovascular: Negative for chest pain. Gastrointestinal: Negative for nausea and vomiting. Musculoskeletal: Positive for neck pain (right-sided). Neurological: Positive for headaches. Negative for dizziness. Data Reviewed: Recent Results (from the past 24 hour(s)) CBC auto differential Collection Time: 12/26/23 1:18 PM Result Value Ref Range White Blood Cells 9.1 4.0 - 11.0 X10E9/L RBC count 6.05 (H) 4.10 - 5.70 X10E12/L Hemoglobin 19.3 (H) 13.0 - 17.0 g/dL Hematocrit 55.4 (H) 39 - 49 % MCV 92 80 - 100 fL MCH 31.9 27 - 34 pg MCHC 34.9 32 - 36 g/dL RDW 14.8 11.5 - 15.0 % Platelets 180 150 - 450 X10E9/L MPV 8.1 7 - 12 fL % neutrophils 75.0 % % lymphocytes 12.1 % % monocytes 10.0 % % eosinophils 2.3 % % Basophils 0.6 % Neutrophils Absolute (A) 6.8 (H) 1.5 - 6.6 X10E9/L Lymphocytes Absolute 1.1 1.0 - 3.5 X10E9/L Monocytes Absolute 0.9 0 - 0.9 X10E9/L Eosinophils Absolute 0.2 0.0 - 0.4 X10E9/L Basophils Absolute 0.1 0.0 - 0.2 X10E9/L Basic Metabolic Panel Collection Time: 12/26/23 1:18 PM Result Value Ref Range Sodium 138 134 - 146 mmol/L Potassium, Bld 4.2 3.5 - 5.0 mmol/L Chloride 99 98 - 109 mmol/L CO2 26 22 - 32 mmol/L Anion gap 13 5 - 15 mmol/L BUN 13 5 - 27 mg/dL Creatinine 0.91 0.60 - 1.30 mg/dL Glucose 88 65 - 99 mg/dL Calcium 9.6 8.5 - 10.5 mg/dL eGFR (CKD-EPI)non-race dependent 90 >59 ml/min/1.73sq.m PHYSICAL EXAMINATION: BP (!) 166/101 Pulse 71 Temp 36.7 C (98.1 F) Resp 16 Ht 177.8 cm (5' 10 ) Wt 94.2 kg (207 lb 10.8 oz) SpO2 96% BMI 29.80 kg/m Constitutional: Healthy, Alert, Cooperative, and In No Apparent Distress, Normal Ability to Communicate, and appears uncomfortable Voice normal quality and volume Head/Face: Normocephalic, without obvious abnormalities present, salivary glands normal, Atraumatic, Sinuses nontender without overlying facial swelling or deformity, and facial nerve intact bilaterally Eyes: No gross abnormalities., Gaze Alignment Straight, No spontaneous nystagmus at rest, PERRL, EOMI, and No visible upper eyelid ptosis Ear: RIGHT: Auricle: normal size, shape, without obvious skin lesions, Normal hearing in exam room, No visible erythema or swelling overlying mastoid region., and fresh bright red blood present in canal, TM is obscured, PE tube that was recently placed is not visualized. LEFT: Auricle: normal size, shape, without obvious skin lesions, Normal hearing in exam room, External ear canal normal: no otorrhea, lesions, skin erythema, or swelling, Tympanic Membrane Intact, visible middle ear space appears aerated., and No visible erythema or swelling overlying mastoid region. Nose: Normal external nasal skin & alignment upper and lower nasal cartilages, without obvious deformity, caudal septum midline, normal intranasal mucosa, normal turbinates, and no nasal polyps, masses, or signs of recent/active bleeding Oral: Normal appearance upper and lower lips, Buccal Mucosa: normal appearance bilaterally, moist, Age appropriate dentition, Normal gingiva without lesions, Floor of mouth: mucosa normal, no palpable masses, no visible lesions. Clear saliva flow bilateral submandibular ducts., Anterior tongue: Dorsal & Ventral mucosa normal. Protrudes side to side without restriction. No palpable masses., and Normal hard palate Oropharynx: normal-appearing mucosa, no pharyngitis, no exudate, and normal soft palate and uvula TMJ: no pain, crepitus, or trismus Neck: normal, supple, no adenopathy, thyroid normal in size, no nodules or tenderness, and no neck masses palpable Respiration: No stridor, Normal respiratory effort. Chest expands symmetrically. Cardiovascular: Regular rate. Neurologic: Grossly normal Alert Oriented X 3 Affect normal Cranial nerves 2 -12 grossly intact ASSESSMENT/PLAN: Assessment: 1. Right otitis externa 2. Right suppurative otitis media with effusion 3. Otorrhagia, likely due to recent myringotomy and PE tube placement Plan: Continue administering Ciprodex in the right ear, 4 drops twice daily IV antibiotics, recommend Unasyn Obtain CT temporal bones with and without contrast ENT will continue to follow Discussed with Dr. Sloan MILLER PA-C [facility] Physicians Ear, Nose and Throat Contact Office during business hours After Hours Answering Service Please note that parts of this chart were generated using voice recognition M*Modal dictation software. Although every effort was made to ensure the accuracy of this automated industrial rehabilitation consultant, some errors in industrial rehabilitation consultant may have occurred. Mag Miller PA-C 12/26/23 145 Mag Miller PA-C 12/26/23 3433 I, Balaji Lisa DO, personally performed the face to face diagnostic evaluation on this patient. I have reviewed the MARTÍN's History, Exam, and MDM and agree with the assessment and plan as written. Balaji Lisa DO 12/26/20230 [facility] Work Phone: 12-26-2023 Physician Emergency department Note Images from the original note were not included. History Chief Complaint Patient presents with Ear Problem Initial evaluation done by Dr. Kash Mata at 13:07. Patient is a 73 y/o male reporting to ED with chief complaint of ear problem. Patient is coming from his ENT's office for further evaluation of his right ear. For the last 4 weeks, patient has been having right ear pain that has been concerning for further bone infection. He is aware that the outer and inner ear are already infected. Confirms difficulty hearing, difficulty swallowing/chewing, neck pain and neck stiffness. No pertinent medical hx reported. Allergies ciprofloxacin, codeine, erythromycin, lanolin, lisinopril, meloxicam and sulfa. History provided by: Patient Ear Problem Associated symptoms: ear pain (right) Problem List Items Addressed This Visit None Past Medical History: Diagnosis Date Arthritis Asthma GERD (gastroesophageal reflux disease) Gout HL (hearing loss) Hyperlipidemia Hypertension Pneumonia Prostate cancer ([facility]) Visual impairment Past Surgical History: Procedure Laterality Date APPENDECTOMY CARDIAC CATHETERIZATION COLONOSCOPY COLONOSCOPY DIAGNOSTIC / SCREENING N/A 02/21/2023 Performed by Buddy Ureña MD at [facility] JOINT REPLACEMENT 01/02/2020 PROSTATE BIOPSY PROSTATECTOMY REPLACEMENT TOTAL KNEE Right TOOTH EXTRACTION VASECTOMY 1988 Travel Screening Question Response Have you been in contact with someone who was sick? No / Unsure Do you have any of the following new or worsening symptoms? None of these Have you traveled internationally or domestically in the last month? No Travel History Travel since 11/26/23 No documented travel since 11/26/23 Family History Problem Relation Age of Onset [place]'s disease Mother Asthma Mother Heart disease Father Social History Substance and Sexual Activity Drug Use No Social History Tobacco Use Smoking status: Former Current packs/day: 0.50 Types: Cigarettes Smokeless tobacco: Never Vaping Use Vaping status: Never Used Substance Use Topics Alcohol use: Yes Alcohol/week: 6.0 standard drinks of alcohol Types: 6 Cans of beer per week Drug use: No Review of Systems HENT: Positive for ear pain (right), hearing loss (right ear) and trouble swallowing. Confirms trouble chewing Physical Exam ED Triage Vitals [12/26/23 1231] Temp Heart Rate Resp BP SpO2 36.7 C (98.1 F) 71 16 (!) 166/101 96 % Temp src Heart Rate Source Patient Position BP Location FiO2 (%) -- -- -- -- -- Vitals: 12/26/23 1231 BP: (!) 166/101 Temp: 36.7 C (98.1 F) Pulse: 71 Resp: 16 SpO2: 96% Height: 177.8 cm (5' 10 ) Weight: 94.2 kg (207 lb 10.8 oz) Physical Exam Vitals and nursing note reviewed. Constitutional: General: He is awake. He is not in acute distress. Appearance: Normal appearance. He is normal weight. He is not ill-appearing or toxic-appearing. HENT: Head: Normocephalic and atraumatic. Jaw: There is normal jaw occlusion. Right Ear: Tympanic membrane normal. Swelling (around mastoid) present. There is mastoid tenderness. Left Ear: Tympanic membrane normal. Ears: Comments: Tenderness and swelling to anterior right ear and upper anterior cervical nodes Nose: Nose normal. Mouth/Throat: Lips: [place]. Mouth: Mucous membranes are moist. Pharynx: Oropharynx is clear. Uvula midline. Eyes: General: Lids are normal. Vision grossly intact. Extraocular Movements: Extraocular movements intact. Conjunctiva/sclera: Conjunctivae normal. Pupils: Pupils are equal, round, and reactive to light. Neck: Trachea: Trachea normal. Cardiovascular: Rate and Rhythm: Normal rate and regular rhythm. Pulses: Normal pulses. Heart sounds: Normal heart sounds. Pulmonary: Effort: Pulmonary effort is normal. Breath sounds: Normal breath sounds. No wheezing, rhonchi or rales. Abdominal: General: Abdomen is flat. Bowel sounds are normal. Palpations: Abdomen is soft. Tenderness: There is no abdominal tenderness. There is no right CVA tenderness, left CVA tenderness, guarding or rebound. Musculoskeletal: General: Normal range of motion. Cervical back: Normal range of motion and neck supple. Right lower leg: Normal. No edema. Left lower leg: Normal. No edema. Skin: General: Skin is warm. Capillary Refill: Capillary refill takes less than 2 seconds. Neurological: General: No focal deficit present. Mental Status: He is alert and oriented to person, place, and time. Mental status is at baseline. GCS: GCS eye subscore is 4. GCS verbal subscore is 5. GCS motor subscore is 6. Cranial Nerves: No cranial nerve deficit. Sensory: Sensation is intact. No sensory deficit. Motor: Motor function is intact. Coordination: Coordination is intact. Gait: Gait is intact. Deep Tendon Reflexes: Reflexes are normal and symmetric. Psychiatric: Behavior: Behavior is cooperative. Procedure Procedures Re-Evaluation Re-Evaluation ED Course Clinical Impressions as of 12/26/23 1441 Mastoiditis of right side 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 [facility] Medical Decision Making Agustina Sandoval) documented for Dr. Kash Mata. Chart Reviewed. Chief Complaint: Ear Problem Differential Diagnosis includes but is not limited to: Mastoiditis Plan of Care: Labs include Blood culture, BMP, CBC. Imaging includes CT Temporal Bones, CT Neck Soft Tissue. Medications inlcude unasyn. 14:44 Labs notable for: RBC 6.05, Hemoglobin 19.3, Hematocrit 55.4 Imaging pending. 14:44 Based on the diagnostic results and physical exam, pt requires admission Amount and/or Complexity of Data Reviewed Labs: ordered. Radiology: ordered. Risk Prescription drug management. RESULTS Labs: Labs Reviewed CBC WITH AUTO DIFFERENTIAL - Abnormal; Notable for the following components: Result Value RBC count 6.05 (*) Hemoglobin 19.3 (*) Hematocrit 55.4 (*) Neutrophils Absolute (A) 6.8 (*) All other components within normal limits BLOOD CULTURE BLOOD CULTURE BASIC METABOLIC PANEL Radiology: No results found. NURSING NOTES AND VITALS REVIEWED The nursing notes within the ED encounter and vital signs as below have been reviewed. BP 142/90 Pulse 78 Temp 36.7 C (98.1 F) Resp 16 Ht 177.8 cm (5' 10 ) Wt 94.2 kg (207 lb 10.8 oz) SpO2 93% BMI 29.80 kg/m PROGRESS NOTES The plan of care has been discussed with patient including today s results, in addition to providing specific details regarding counseling pertaining to the diagnosis and prognosis. All questions were answered at this time and they are agreeable with the plan - ADDITIONAL PROVIDER NOTES - At this time the patient has objective evidence of an acute process requiring hospitalization or inpatient management. Medications ampicillin-sulbactam (UNASYN) 3,000 mg in sodium chloride 0.9 % 100 mL IVPB-MBP (has no administration in time range) sodium chloride 0.9 % infusion (has no administration in time range) Medication List None Diagnosis: 1. Mastoiditis of right side 2. 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 Disposition: Patient's disposition: Admit Patient's condition is stable. Critical Care time: 0 minutes Provider Statement By electronically signing this emergency patient record, the Emergency Physician/FOLDER MACHINE/ZANDER attests that all entries made into the electronic medical record by kala Pan prior to the Physician/FOLDER MACHINE/PA-C signature reflect an accurate accounting of the evaluation and care rendered by that Emergency Physician/FOLDER MACHINE/PA-C. The Emergency Physician/FOLDER MACHINE/PA-C assumes full responsibility for those entries. The Emergency Physician/FOLDER MACHINE/PA-C also attests that any patient testing or treatment that was instituted by nursing staff in accordance to Emergency Department Preemptive Guidelines have been reviewed and unless so stated elsewhere in this patient chart, the Physician/FOLDER MACHINE/PA-C agrees with the testing and care provided. Provider Statement: By electronically signing this emergency patient record, the Emergency Physician/FOLDER MACHINE/PA-C attests that all entries made into the electronic medical record by the scribe prior to the Physician/FOLDER MACHINE/PA-C signature reflect an accurate accounting of the evaluation and care rendered by that Emergency Physician/FOLDER MACHINE/PA-C. The Emergency Physician/FOLDER MACHINE/PA-C assumes full responsibility for those entries. Hellen Genao 12/26/23 1614 Fadi Mata DO 12/27/23 0727 [facility] 12-26-2023 Emergency department Triage note Patient sent to the from the ENT office to be admitted for mastoiditis; ENT requesting CT, IV antibiotics and admission to medicine; right ear noted to have a gauze dressing inside it; patient alert and oriented X 4; ambulatory [facility] 12-26-2023 History of Present illness Narrative [facility] - ENT [address] [place] [address], [address] [place] [id number] SUBJECTIVE: Patient ID: Yue Delgadillo is a 73 y.o. male presents today for Chief Complaint Patient presents with Follow-up HPI: The patient is a 73-year-old male who is here with his . He was last seen in the office yesterday. He has been diagnosed with a right otitis externa. A wick was placed in his ear on 12/20/[address] Kelley. The wick was removed yesterday. His ear canal showed mild edema. I was able to visualize his tympanic membrane. This was thickened and he had middle ear effusion. He also had intense pain. He has also been on oral Augmentin. The pain in the ear is radiating into the right neck. He was started on Ciprodex drops Four drops twice a day. He states the pain in the right ear and neck has gotten worse. He is here for evaluation. HISTORY: Past Medical History: Diagnosis Date Arthritis Asthma GERD (gastroesophageal reflux disease) Gout HL (hearing loss) Hyperlipidemia Hypertension Pneumonia Prostate cancer ([facility]) Visual impairment Past Surgical History: Procedure Laterality Date APPENDECTOMY CARDIAC CATHETERIZATION COLONOSCOPY COLONOSCOPY DIAGNOSTIC / SCREENING N/A 02/21/2023 Performed by Buddy Ureña MD at [facility] JOINT REPLACEMENT 01/02/2020 PROSTATE BIOPSY PROSTATECTOMY REPLACEMENT TOTAL KNEE Right TOOTH EXTRACTION VASECTOMY 1988 Family History Problem Relation Age of Onset [place]'s disease Mother Asthma Mother Heart disease Father Social History Socioeconomic History Marital status: Spouse name: Not on file Number of children: Not on file Years of education: Not on file Highest education level: Associate degree: occupational, technical, or vocational program Occupational History Not on file Tobacco Use Smoking status: Former Current packs/day: 0.50 Types: Cigarettes Smokeless tobacco: Never Vaping Use Vaping status: Never Used Substance and Sexual Activity Alcohol use: Yes Alcohol/week: 6.0 standard drinks of alcohol Types: 6 Cans of beer per week Drug use: No Sexual activity: Not Currently Partners: Female Other Topics Concern Not on file Social History Narrative Not on file Social Determinants of Health Financial Resource Strain: Low Risk (05/03/2020) Overall Financial Resource Strain (CARDIA) Difficulty of Paying Living Expenses: Not very hard Food Insecurity: No Food Insecurity (04/23/2023) Hunger Screening Food Insecurity - Worry: Never True Food Insecurity - Inability: Never True Transportation Needs: No Transportation Needs (05/03/2020) PRAPARE - Transportation Lack of Transportation (Medical): No Lack of Transportation (Non-Medical): No Physical Activity: Sufficiently Active (05/03/2020) Exercise Vital Sign Days of Exercise per Week: 6 days Minutes of Exercise per Session: 40 min Stress: No Stress Concern Present (05/03/2020) [place] [employer] - Occupational Stress Questionnaire Feeling of Stress : Not at all Social Connections: Socially Integrated (05/03/2020) Social Connection and Isolation Panel [NHANES] Frequency of Communication with Friends and Family: More than three times a week Frequency of Social Gatherings with Friends and Family: Twice a week Attends [employer] Services: 1 to 4 times per year Active Member of Clubs or Organizations: Yes Attends Club or Organization Meetings: 1 to 4 times per year Marital Status: Interpersonal Safety: Not At Risk (05/03/2020) Humiliation, Afraid, Rape, and Kick questionnaire Fear of Current or Ex-Partner: No Emotionally Abused: No Physically Abused: No Sexually Abused: No Housing Instability: Not on file Allergies Allergen Reactions Ciprofloxacin Hives Codeine Unsure of reaction Erythromycin Hives And anxiousness Lanolin Hives Lisinopril Swelling Meloxicam GI Disturbance Pork Derived (Porcine) Hives If he eats 2 days in a row Sulfa (Sulfonamide Antibiotics) Hives Current Outpatient Medications Medication Sig Dispense Refill albuterol (PROVENTIL HFA;VENTOLIN HFA) 90 mcg/actuation inhaler Inhale 2 puffs every 6 (six) hours as needed for wheezing. allopurinoL (ZYLOPRIM) 300 mg tablet TAKE ONE TABLET BY MOUTH EVERY MORNING 90 tablet 3 amLODIPine (NORVASC) 10 mg tablet take 1 tablet by mouth every morning 90 tablet 2 amoxicillin-pot clavulanate (AUGMENTIN) 875-125 mg per tablet Take 1 tablet by mouth every 12 (twelve) hours for 14 days. 28 tablet 0 aspirin 81 mg Take 1 tablet (81 mg total) by mouth in the morning. ciprofloxacin-dexAMETHasone (CIPRODEX) otic suspension Administer 4 drops to the right ear in the morning and 4 drops before bedtime. Do all this for 4 days. 7.5 mL 0 fluticasone propionate (FLOVENT HFA) 110 mcg/actuation inhaler Inhale 2 puffs once daily. Patient only takes when sick 12 g 3 hydrocortisone-acetic acid (VOSOL-HC) otic solution Administer 4 drops to the right ear 3 (three) times a day. 10 mL 0 methylPREDNISolone (MEDROL, JACQUELIN,) 4 mg tablet Take as directed 21 tablet 0 ezmxsogh-xazq-XL-calcium &mins (THERAGRAN-M) 9 mg iron-400 mcg tablet Take 1 tablet by mouth in the morning. omega-3 fatty acids-fish oil 300-1,000 mg capsule Take 1,200 mg by mouth daily. omeprazole (PriLOSEC) 20 mg capsule take 2 capsules by mouth every morning 180 capsule 2 simvastatin (ZOCOR) 20 mg tablet TAKE ONE TABLET BY MOUTH EVERY MORNING 90 tablet 3 tobramycin-dexAMETHasone (Tobradex) ophthalmic solution Administer 4 drops to the right ear every 4 (four) hours while awake for 7 days. 10 mL 0 traMADoL (ULTRAM) 50 mg tablet Take 1 tablet (50 mg total) by mouth every 8 (eight) hours as needed for pain for up to 5 days. 15 tablet 0 No current facility-administered medications for this visit. REVIEW OF SYSTEMS: Review of Systems Constitutional: Negative for chills and fever. HENT: Positive for ear pain, hearing loss and tinnitus (heartbeat). Negative for ear discharge. Respiratory: Negative for cough and shortness of breath. Cardiovascular: Negative for chest pain and palpitations. Gastrointestinal: Positive for nausea (during drive up). Negative for vomiting. Neurological: Positive for dizziness, light-headedness and headaches. Negative for numbness. Hematological: Bruises/bleeds easily. Data Reviewed: PHYSICAL EXAMINATION: Temp 36.8 C (98.2 F) (Temporal) Ht 177.8 cm (5' 10 ) Wt 94.2 kg (207 lb 9.6 oz) BMI 29.79 kg/m Constitutional: General Appearance: Healthy, alert, cooperative, and in no distress Ability to Communicate: Normal ability to communicate and Voice normal Head/Face: Inspection of Head/Face: Normocephalic without obvious abnormality, Atraumatic appearance, and Sinuses non-tender Facial Nerve: Facial nerve symmetrical and intact Salivary Glands: Parotid Gland: Normal, Submandibular Gland: Normal, and Sublingual Gland: Normal Eyes: No gross abnormalities, EOMI, and No Nystagmus Ears: External Ear: Normal bilateral External Auditory Canal: Right shows mild edema, left is normal. Tympanic Membranes: Right thickened tympanic membrane with middle ear effusion, left normal Middle Ear: Normal bilateral Hearing: Normal bilateral Respiratory: No stridor, Normal respiratory effort and No use of accessory muscles Cardiovascular: Regular rate and Regular rhythm Neurologic: Patient is alert and oriented x3 with normal affect and grossly normal cranial nerves Myringotomy Procedure Note Pre-operative Diagnosis: Right Acute supperative otitis media Post-operative Diagnosis: Right Acute supperative otitis media Procedure: Myringotomy right with PE Tube Placement Surgeon: MD Sumit Anesthetic: Topical phenol Indications: History of persistent effusion, acute suppurative otitis media, and/or ETD refractory to medical management. Patient was symptomatic with pain. Procedure Technique: Patient was taken to the procedure room where they were placed in the supine position under the microscope. Right ear: An ear speculum was placed to allow microscopic evaluation. Suction, curette, and/or peroxide were used to remove skin, wax, and debris from the canal and drum. The drum and/or canal was anesthestized. A radial incision was then made in the inferior portion of the drum. Middle ear was suctioned and thickened middle ear mucosa was found. The tympanic membrane was thickened. A(n) collar button tube was then placed with a pick and alligator method . Ciprodex drops were placed into the canal and a cotton ball was used to occlude the canal. Additional Findings: Complications: pain. Patient Status: successful ASSESSMENT/PLAN: Yue was seen today for follow-up. Diagnoses and all orders for this visit: Right ear pain Mixed conductive and 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 Acute middle ear effusion, right Mastoiditis of right side The patient has increasing pain in his right ear radiating to his neck and throat. A right myringotomy with tube placement was performed by Dr. Arana. This was done with great difficulty. Ciprodex drops were placed in the right ear. At this point the patient will go directly to [facility] for admission. I spoke to the ER physician. He will require Ciprodex drops in the right ear 4 drops twice a day and IV antibiotics consisting of Unasyn. We will also order a CT scan of his temporal bones with and without contrast. The patient was taken from the office to his car in an wheelchair. He understands. Scribe Statement: Scribed for and in the presence of OSCAR JOHNSON MD Provider Statement: I OSCAR JOHNSON MD personally performed the services described in the documentation as described by the above named scribe in my presence. It is both accurate and complete at the time of final signature. Dr. Oscar Johnson 12/26/2023 12:17 PM Counseling: The following elements of medical decision making were considered during this visit: The patient was counseled regarding prognosis, risks and benefits of treatment options, impressions, importance of compliance with treatment and risk factor reductions. The patient verbalized understanding and agreement to the plan. Electronically signed by OSCAR JOHNSON MD Please note that parts of this chart were generated using voice recognition [employer] dictation software. Although every effort was made to ensure the accuracy of this automated industrial rehabilitation consultant, some errors in industrial rehabilitation consultant may have occurred. documented in this encounter [facility] 12-25-2023 History of Present illness Narrative [facility] [address] [place] [address], [address] [place] [id number] SUBJECTIVE: Patient ID: Yue Delgadillo is a 73 y.o. male presents today for Chief Complaint Patient presents with Acute swimmer's ear of right side 1 week follow up HPI: The patient is a 73-year-old male last seen in the office on 12/20/2023. He presented with a right otitis externa. A wick was placed in his ear canal. He was started on Ciprodex drops. He also was started on oral antibiotics. He is not diabetic. He was also given pain medication. With his . He continues to have right otalgia which radiates into the jaw and neck. He is here for evaluation. HISTORY: Past Medical History: Diagnosis Date Arthritis Asthma GERD (gastroesophageal reflux disease) Gout HL (hearing loss) Hyperlipidemia Hypertension Pneumonia Prostate cancer ([facility]) Visual impairment Past Surgical History: Procedure Laterality Date APPENDECTOMY CARDIAC CATHETERIZATION COLONOSCOPY COLONOSCOPY DIAGNOSTIC / SCREENING N/A 02/21/2023 Performed by Buddy Ureña MD at [facility] JOINT REPLACEMENT 01/02/2020 PROSTATE BIOPSY PROSTATECTOMY REPLACEMENT TOTAL KNEE Right TOOTH EXTRACTION VASECTOMY 1989 Family History Problem Relation Age of Onset [place]'s disease Mother Asthma Mother Heart disease Father Social History Socioeconomic History Marital status: Spouse name: Not on file Number of children: Not on file Years of education: Not on file Highest education level: Associate degree: occupational, technical, or vocational program Occupational History Not on file Tobacco Use Smoking status: Former Current packs/day: 0.50 Types: Cigarettes Smokeless tobacco: Never Vaping Use Vaping status: Never Used Substance and Sexual Activity Alcohol use: Yes Alcohol/week: 6.0 standard drinks of alcohol Types: 6 Cans of beer per week Drug use: No Sexual activity: Not Currently Partners: Female Other Topics Concern Not on file Social History Narrative Not on file Social Determinants of Health Financial Resource Strain: Low Risk (05/03/2020) Overall Financial Resource Strain (CARDIA) Difficulty of Paying Living Expenses: Not very hard Food Insecurity: No Food Insecurity (04/23/2023) Hunger Screening Food Insecurity - Worry: Never True Food Insecurity - Inability: Never True Transportation Needs: No Transportation Needs (05/03/2020) PRAPARE - Transportation Lack of Transportation (Medical): No Lack of Transportation (Non-Medical): No Physical Activity: Sufficiently Active (05/03/2020) Exercise Vital Sign Days of Exercise per Week: 6 days Minutes of Exercise per Session: 40 min Stress: No Stress Concern Present (05/03/2020) [place] [employer] - Occupational Stress Questionnaire Feeling of Stress : Not at all Social Connections: Socially Integrated (05/03/2020) Social Connection and Isolation Panel [NHANES] Frequency of Communication with Friends and Family: More than three times a week Frequency of Social Gatherings with Friends and Family: Twice a week Attends [employer] Services: 1 to 4 times per year Active Member of Clubs or Organizations: Yes Attends Club or Organization Meetings: 1 to 4 times per year Marital Status: Interpersonal Safety: Not At Risk (05/03/2020) Humiliation, Afraid, Rape, and Kick questionnaire Fear of Current or Ex-Partner: No Emotionally Abused: No Physically Abused: No Sexually Abused: No Housing Instability: Not on file Allergies Allergen Reactions Ciprofloxacin Hives Codeine Unsure of reaction Erythromycin Hives And anxiousness Lanolin Hives Lisinopril Swelling Meloxicam GI Disturbance Pork Derived (Porcine) Hives If he eats 2 days in a row Sulfa (Sulfonamide Antibiotics) Hives Current Outpatient Medications Medication Sig Dispense Refill albuterol (PROVENTIL HFA;VENTOLIN HFA) 90 mcg/actuation inhaler Inhale 2 puffs every 6 (six) hours as needed for wheezing. allopurinoL (ZYLOPRIM) 300 mg tablet TAKE ONE TABLET BY MOUTH EVERY MORNING 90 tablet 3 amLODIPine (NORVASC) 10 mg tablet take 1 tablet by mouth every morning 90 tablet 2 amoxicillin-pot clavulanate (AUGMENTIN) 875-125 mg per tablet Take 1 tablet by mouth every 12 (twelve) hours for 14 days. 28 tablet 0 aspirin 81 mg Take 1 tablet (81 mg total) by mouth in the morning. fluticasone propionate (FLOVENT HFA) 110 mcg/actuation inhaler Inhale 2 puffs once daily. Patient only takes when sick 12 g 3 hydrocortisone-acetic acid (VOSOL-HC) otic solution Administer 4 drops to the right ear 3 (three) times a day. 10 mL 0 methylPREDNISolone (MEDROL, JACQUELIN,) 4 mg tablet Take as directed 21 tablet 0 brsuiulo-lnhb-NV-calcium &mins (THERAGRAN-M) 9 mg iron-400 mcg tablet Take 1 tablet by mouth in the morning. omega-3 fatty acids-fish oil 300-1,000 mg capsule Take 1,200 mg by mouth daily. omeprazole (PriLOSEC) 20 mg capsule take 2 capsules by mouth every morning 180 capsule 2 simvastatin (ZOCOR) 20 mg tablet TAKE ONE TABLET BY MOUTH EVERY MORNING 90 tablet 3 tobramycin-dexAMETHasone (Tobradex) ophthalmic solution Administer 4 drops to the right ear every 4 (four) hours while awake for 7 days. 10 mL 0 ciprofloxacin-dexAMETHasone (CIPRODEX) otic suspension Administer 4 drops to the right ear in the morning and 4 drops before bedtime. Do all this for 4 days. 7.5 mL 0 No current facility-administered medications for this visit. REVIEW OF SYSTEMS: Review of Systems Constitutional: Negative for chills and fever. HENT: Positive for ear discharge and ear pain. Eyes: Negative for discharge and itching. Respiratory: Negative for cough and shortness of breath. Cardiovascular: Negative for chest pain and leg swelling. Gastrointestinal: Negative for diarrhea, nausea and vomiting. Endocrine: Negative for cold intolerance and heat intolerance. Genitourinary: Negative for flank pain and frequency. Musculoskeletal: Negative for back pain and gait problem. Skin: Negative for color change and pallor. Allergic/Immunologic: Positive for environmental allergies. Negative for food allergies. Neurological: Positive for dizziness and facial asymmetry. Hematological: Bruises/bleeds easily. Psychiatric/Behavioral: Negative for dysphoric mood. The patient is not hyperactive. Data Reviewed: PHYSICAL EXAMINATION: Temp 36.1 C (97 F) Resp 19 Ht 172.7 cm (5' 8 ) Wt 93.4 kg (206 lb) BMI 31.32 kg/m Constitutional: General Appearance: Healthy, alert, cooperative, and in no distress Ability to Communicate: Normal ability to communicate and Voice normal Head/Face: Inspection of Head/Face: Normocephalic without obvious abnormality, Atraumatic appearance, and Sinuses non-tender Facial Nerve: Facial nerve symmetrical and intact Salivary Glands: Parotid Gland: Normal, Submandibular Gland: Normal, and Sublingual Gland: Normal Eyes: No gross abnormalities, EOMI, and No Nystagmus Ears: External Ear: Normal bilateral External Auditory Canal: Abnormal right Canal abnormal due to wick placement Tympanic Membranes: Normal bilateral Middle Ear: Abnormal right Effusion Serous Hearing: Abnormal bilateral Decreased Nose: External Nose: Normal Septum: Midline septum Mucosa/Turbinates: Normal inferior turbinate and Normal mucosa Oral Cavity: Normal lips, Normal teeth, Normal gums, Normal floor of mouth, Normal oral mucosa, and Normal anterior tongue Oropharynx: Normal mucosa, Normal soft palate, Normal hard palate, Normal uvula, Normal tonsils, and Normal Vallecula Neck: Neck supple, No adenopathy, Thyroid normal in size without nodules or tenderness, No palpable neck masses, and Carotids normal Respiratory: No stridor, Normal respiratory effort and No use of accessory muscles Cardiovascular: Regular rate and Regular rhythm Neurologic: Patient is alert and oriented x3 with normal affect and grossly normal cranial nerves Ear examination PROCEDURE NOTE Yue Delgadillo was taken to the procedure room and placed in the supine position. Using binocular microscopy, visualization of the right external canal a wick in place. This was removed. The patient has some mucus in the ear canal. This was suctioned. He has mild swelling of the ear canal. The tympanic membrane is thickened. He has bulging of the superior portion of the tympanic membrane. Four drops of Ciprodex eardrops were placed in the right ear canal. Findings: Procedure was successful ASSESSMENT/PLAN: Yue was seen today for acute swimmer's ear of right side. Diagnoses and all orders for this visit: Acute swimmer's ear of right side - ciprofloxacin-dexAMETHasone (CIPRODEX) otic suspension; Administer 4 drops to the right ear in the morning and 4 drops before bedtime. Do all this for 4 days. Vertigo Right ear pain Sensorineural hearing loss (SNHL) of left ear with restricted hearing of right ear Mixed conductive and 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 Middle ear effusion, right Plan: Patient presents for a 1 week follow up for acute swimmer's ear of the right side. He endorses that he feels minimal relief since the last time he came in and was treated for the swimmer's ear with a wick (removed today). He also states that he experiences right otalgia that radiates down to his jaw. Upon physical examination, I appreciated a middle ear effusion of the right ear. The mucus in the right ear was successfully removed today via suction. He should start Ciprodex (4 drops) BID for 4 days in the right ear. He agrees. Questions and concerns addressed. I will see him back tomorrow (12/26/2023) to reexamine in the possibly confer with Dr. Arana. He may benefit from a right myringotomy with and without tube placement. Scribe Statement: Scribed for and in the presence of Dr. Oscar Johnson M.D. by Kala Luis Provider Statement: I OSCAR JOHNSON MD personally performed the services described in the documentation as described by the above named scribe in my presence. It is both accurate and complete at the time of final signature. Dr. Oscar Johnson 12/25/2023 9:57 AM Counseling: The following elements of medical decision making were considered during this visit: Reviewed and summarized previous records. The patient was counseled regarding prognosis, risks and benefits of treatment options, impressions, importance of compliance with treatment and risk factor reductions. The patient verbalized understanding and agreement to the plan. Electronically signed by OSCAR JOHNSON MD Please note that parts of this chart were generated using voice recognition [employer] dictation software. Although every effort was made to ensure the accuracy of this automated industrial rehabilitation consultant, some errors in industrial rehabilitation consultant may have occurred. Leela Evans MA 12/25/23 0923 Selam Campoverde CMA 12/25/23 0941 documented in this encounter [facility] 07-06-2023 Miscellaneous Notes Refill request documented in this encounter [facility] 07-06-2023 Telephone encounter Note Refill request [facility] 05-29-2023 Miscellaneous Notes Cherise called and said that Yue isn't much better, he is still have a productive cough, and still blowing stuff out of his nose, and still has a nagging headache. She said she is worried about pneumonia. She is wondering what else can be done, or do you need to see him? Please advise I sent him a script for a different antibiotic. Spoke with Cherise and let her know that a script was called in for Yue. documented in this encounter [facility] 05-29-2023 Telephone encounter Note Cherise called and said that Yue isn't much better, he is still have a productive cough, and still blowing stuff out of his nose, and still has a nagging headache. She said she is worried about pneumonia. She is wondering what else can be done, or do you need to see him? Please advise [facility] 05-29-2023 Telephone encounter Note I sent him a script for a different antibiotic. [facility] 05-29-2023 Telephone encounter Note Spoke with Cherise and let her know that a script was called in for Yue. [facility] 05-22-2023 Miscellaneous Notes Refill request documented in this encounter [facility] 05-22-2023 Telephone encounter Note Refill request [facility] 05-06-2023 Miscellaneous Notes Refill request documented in this encounter [facility] 05-06-2023 Telephone encounter Note Refill request [facility] 04-23-2023 History of Present illness Narrative Subjective SUBJECTIVE: Patient ID: Yue Delgadillo is a 73 y.o. male who presents for a Medicare Annual Wellness exam. Comes in for wellness. No change in his functional status or general health. He is followed by urology for history of prostate cancer status post prostatectomy. His PSA has been low. His left shoulder has been bothering him for a couple of weeks. He has not lost any strength or range of motion. No numbness down his arm. He thinks he had some type of injury while unloading hay from a wagon. The following portions of the patient's history were reviewed and updated as appropriate: allergies, current medications, past family history, past medical history, past social history, past surgical history and problem list. AWV FLOWSHEET : Lifestyle Assessment Do you smoke or use smokeless tobacco?: No If you smoke or use smokeless tobacco, are you ready to quit?: NA Are you exposed to secondhand smoke?: No On average, how many drinks of alcohol do you consume in a week?: 2 - 5 Do you exercise for 30 or more minutes on average at least 3 days a week?: Sometimes Do you have any tooth, denture, or oral problems?: (!) Yes Do you snore or has anyone told you that you snore?: (!) Yes Do you try to eat a balanced diet?: Yes Do you experience leakage of urine, also known as urinary incontinence?: Never Do you have difficulty performing any of these activities? (check all that apply): None Do you have difficulty performing any of these activities? (check all that apply): None Fall Risk Fall Risk Assessment Completed?: Yes Have you fallen in the past year?: No Are you worried about falling?: No Do you feel unsteady when standing or walking?: No Risk Stratification: Low Risk Depression Screening Little interest or pleasure in doing things: Not at all Feeling down, depressed, or hopeless: Not at all Trouble falling or staying asleep, or sleeping too much: Not at all Feeling tired or having little energy: Not at all Poor appetite or overeating: Not at all Feeling bad about yourself - or that you are a failure or have let yourself or your family down: Not at all Trouble concentrating on things, such as reading the newspaper or watching television: Not at all Moving or speaking so slowly that other people could have noticed. Or the opposite - being so fidgety or restless that you have been moving around a lot more than usual: Not at all Thoughts that you would be better off , or of hurting yourself in some way: Not at all PEG Scale What number best describes your pain on average in the past week?: 0 - No pain What number best describes how, during the past week, pain has interfered with your enjoyment of life?: 0 - Does not interfere What number best describes how, during the past week, pain has interfered with your general activity?: 0 - Does not interfere PEG Pain Total Score: 0 Safety Assessment Do you have throw rugs on the floor?: (!) Yes Do you feel safe at your home?: Yes Do you feel unsteady when walking?: (!) Yes Are you having difficulty with driving?: No Do you have trouble seeing?: No What assistive device do you use? (check all that apply): None Hearing Assessment Do you strain or struggle to hear/understand conversations?: No Do you have trouble hearing the television or radio when others do not?: No Does your family ever voice concerns about your hearing?: No Do you wear hearing aid/s?: No Personal Health During the past 4 weeks, how would you rate your overall health?: Very Good Do you understand how to take all of your medications?: Yes How confident are you that you can control and manage most of your health problems?: Very confident In the past 12 months, how many times have you been hospitalized?: None End of Life Planning Do you have a living will?: Yes Do you have a durable power of juke box servicer?: Yes Cognitive Screening Do you have trouble remembering or recalling facts or events?: No Do family members or caregivers report that you have difficulty remembering things?: No Clock Drawing Test: Normal REVIEW OF SYSTEMS: Review of Systems Constitutional: Negative for activity change and unexpected weight change. HENT: Negative for trouble swallowing and voice change. Eyes: Negative for visual disturbance. Respiratory: Asthma has been well-controlled Cardiovascular: Negative for chest pain and leg swelling. Gastrointestinal: Negative for abdominal pain and blood in stool. Genitourinary: Negative for difficulty urinating, dysuria and hematuria. Neurological: Negative for dizziness, light-headedness, numbness and headaches. Objective PHYSICAL EXAMINATION: Vitals: 04/23/23 0830 BP: 129/88 Pulse: 69 Weight: 94.8 kg (209 lb) Height: 174.6 cm (5' 8.75 ) Physical Exam Constitutional: Appearance: Normal appearance. Comments: Blood pressure acceptable HENT: Right Ear: Tympanic membrane normal. Left Ear: Tympanic membrane normal. Mouth/Throat: Pharynx: Oropharynx is clear. Eyes: General: No scleral icterus. Pupils: Pupils are equal, round, and reactive to light. Neck: Vascular: No carotid bruit. Comments: No thyroid enlargement or neck mass Cardiovascular: Rate and Rhythm: Normal rate and regular rhythm. Heart sounds: No murmur heard. Pulmonary: Effort: Pulmonary effort is normal. Breath sounds: Normal breath sounds. Abdominal: General: There is no distension. Palpations: Abdomen is soft. Tenderness: There is no abdominal tenderness. Musculoskeletal: Right lower leg: No edema. Left lower leg: No edema. Comments: Utjub-cm-icbffc is preserved in his left shoulder. He does have some increase in his pain over the deltoid area with resistance to abduction. Neurological: General: No focal deficit present. Mental Status: He is alert and oriented to person, place, and time. Assessment/Plan ASSESSMENT/PLAN Health maintenance reviewed. Medication reviewed. Labs ordered. Routine follow-up annually for wellness. Diagnoses and all orders for this visit: Routine general medical examination at a health care facility Essential hypertension - Comprehensive metabolic panel; Future Prostate cancer ([facility]) Chronic gout involving toe without tophus, unspecified cause, unspecified laterality - Uric acid; Future Mixed hyperlipidemia - Lipid panel; Future Asthma in adult, mild persistent, uncomplicated documented in this encounter [facility] 04-23-2023 Miscellaneous Notes Addended by: CHANELLE SANTAMARIA on: 04/23/2023 09:51 AM Modules accepted: Orders documented in this encounter [facility] 04-23-2023 Note Addended by: CHANELLE SANTAMARIA on: 04/23/2023 09:51 AM Modules accepted: Orders [facility] 04-04-2023 Miscellaneous Notes Refill request documented in this encounter [facility] 04-04-2023 Telephone encounter Note Refill request [facility] 03-23-2023 Hospital Discharge instructions Patient Education 03/23/2023 09:14:32 Urinary Incontinence Urinary Incontinence Urinary incontinence refers to a condition in which a person is unable to control where and when to pass urine. A person with this condition will urinate involuntarily. This means that the person urinates when he or she does not mean to. What are the causes? This condition may be caused by: Medicines. Infections. Constipation. Overactive bladder muscles. Weak bladder muscles. Weak pelvic floor muscles. These muscles provide support for the bladder, intestine, and, in women, the uterus. Enlarged prostate in men. The prostate is a gland near the bladder. When it gets too big, it can pinch the urethra. With the urethra blocked, the bladder can weaken and lose the ability to empty properly. Surgery. Emotional factors, such as anxiety, stress, or post-traumatic stress disorder (PTSD). Spinal cord injury, nerve injury, or other neurological conditions. Pelvic organ prolapse. This happens in women when organs move out of place and into the vagina. This movement can prevent the bladder and urethra from working properly. What increases the risk? The following factors may make you more likely to develop this condition: Age. The older you are, the higher the risk. Obesity. Being physically inactive. and childbirth. Menopause. Diseases that affect the nerves or spinal cord. Long-term, or chronic, coughing. This can increase pressure on the bladder and pelvic floor muscles. What are the signs or symptoms? Symptoms may vary depending on the type of urinary incontinence you have. They include: A sudden urge to urinate, and passing urine involuntarily before you can get to a bathroom (urge incontinence). Suddenly passing urine when doing activities that force urine to pass, such as coughing, laughing, exercising, or sneezing (stress incontinence). Needing to urinate often but urinating only a small amount, or constantly dribbling urine (overflow incontinence). Urinating because you cannot get to the bathroom in time due to a physical disability, such as arthritis or injury, or due to a communication or thinking problem, such as Alzheimer's disease (functional incontinence). How is this diagnosed? This condition may be diagnosed based on: Your medical history. A physical exam. Tests, such as: ?Urine tests. ?X-rays of your kidney and bladder. ?Ultrasound. ?CT scan. ?Cystoscopy. In this procedure, a health care provider inserts a tube with a light and camera (cystoscope) through the urethra and into the bladder to check for problems. ?Urodynamic testing. These tests assess how well the bladder, urethra, and sphincter can store and release urine. There are different types of urodynamic tests, and they vary depending on what the test is measuring. To help diagnose your condition, your health care provider may recommend that you keep a log of when you urinate and how much you urinate. How is this treated? Treatment for this condition depends on the type of incontinence that you have and its cause. Treatment may include: Lifestyle changes, such as: ?Quitting smoking. ?Maintaining a healthy weight. ?Staying active. Try to get 150 minutes of moderate-intensity exercise every week. Ask your health care provider which activities are safe for you. ?Eating a healthy diet. ?Avoid high-fat foods, like fried foods. ?Avoid refined carbohydrates like white bread and white rice. ?Limit how much alcohol and caffeine you drink. ?Increase your fiber intake. Healthy sources of fiber include beans, whole grains, and fresh fruits and vegetables. Behavioral changes, such as: ?Pelvic floor muscle exercises. ?Bladder training, such as lengthening the amount of time between bathroom breaks, or using the bathroom at regular intervals. ?Using techniques to suppress bladder urges. This can include distraction techniques or controlled breathing exercises. Medicines, such as: ?Medicines to relax the bladder muscles and prevent bladder spasms. ?Medicines to help slow or prevent the growth of a man's prostate. ?Botox injections. These can help relax the bladder muscles. Treatments, such as: ?Using pulses of electricity to help change bladder reflexes (electrical nerve stimulation). ?For women, using a medical insurance collector to prevent urine leaks. This is a small, tampon-like, disposable device that is inserted into the urethra. ?Injecting collagen or carbon beads (bulking agents) into the urinary sphincter. These can help thicken tissue and close the bladder opening. ?Surgery. Follow these instructions at home: Lifestyle Limit alcohol and caffeine. These can fill your bladder quickly and irritate it. Keep yourself clean to help prevent odors and skin damage. Ask your health care provider about special skin creams and cleansers that can protect the skin from urine. Consider wearing pads or adult diapers. Make sure to change them regularly, and always change them right after experiencing incontinence. General instructions Take yrza-gpr-rhgelbo and prescription medicines only as told by your health care provider. Use the bathroom about every 3 4 hours, even if you do not feel the need to urinate. Try to empty your bladder completely every time. After urinating, wait a minute. Then try to urinate again. Make sure you are in a relaxed position while urinating. If your incontinence is caused by nerve problems, keep a log of the medicines you take and the times you go to the bathroom. Keep all follow-up visits. This is important. Where to find more information National [place] of Diabetes and Digestive and Kidney Diseases: www.niddk.nih.gov [place] [facility] [employer]: www.urologyhealth.org Contact a health care provider if: You have pain that gets worse. Your incontinence gets worse. Get help right away if: You have a fever or chills. You are unable to urinate. You have redness in your groin area or down your legs. Summary Urinary incontinence refers to a condition in which a person is unable to control where and when to pass urine. This condition may be caused by medicines, infection, weak bladder muscles, weak pelvic floor muscles, enlargement of the prostate (in men), or surgery. Factors such as older age, obesity, and childbirth, menopause, neurological diseases, and chronic coughing may increase your risk for developing this condition. Types of urinary incontinence include urge incontinence, stress incontinence, overflow incontinence, and functional incontinence. This condition is usually treated first with lifestyle and behavioral changes, such as quitting smoking, eating a healthier diet, and doing regular pelvic floor exercises. Other treatment options include medicines, bulking agents, medical devices, electrical nerve stimulation, or surgery. This information is not intended to replace advice given to you by your health care provider. Make sure you discuss any questions you have with your health care provider. Document Revised: 10/15/2020 Document Reviewed: 10/15/2020 Elsevier Patient Education 2022 [employer] Follow Up Care 07/10/2022 09:54:02 With:VARSHA MCPHERSON, Maia Marie, URL Address: [address] [place] [id number]- When: Unknown [facility] 07-10-2022 Hospital Discharge instructions Patient Education 07/10/2022 08:11:20 Cancer Screening for Men Cancer Screening for Men A cancer screening is a test or exam that checks for cancer. Your health care provider will recommend specific cancer screenings based on your age, personal history, and family history of cancer. Work with your health care provider to create a cancer screening schedule that protects your health. Why is cancer screening done? Cancer screening is done to look for cancer in the very early stages, before it spreads and becomes harder to treat and before you would start to notice symptoms. Finding cancer early improves the chances of successful treatment. It may save your life. Who should be screened for cancer? All men should be screened for colorectal cancer and skin cancer. Your health care provider may recommend screenings for other types of cancer if: You had cancer before. You have a family member with cancer. You have abnormal genes that could increase the risk of cancer. You have risk factors for certain cancers, such as smoking. When you should be screened for cancer depends on: Your age. Your medical history and your family's medical history. Certain lifestyle factors, such as smoking. Environmental exposure, such as to asbestos. What are some common cancer screenings? Lung cancer Lung cancer screening is done with a CT scan that looks for abnormal cells in the lungs. Discuss lung cancer screening with your health care provider if you are 55 74 years old and if any of the following apply to you: You currently smoke. You used to smoke heavily. You have a smoking history of 1 pack a day for 30 years or 2 packs a day for 15 years. You have quit smoking within the past 15 years. If you smoke heavily or if you used to smoke, you may need to be screened every year. Prostate cancer Prostate cancer screening is done with blood tests and an exam in which a health care provider uses a gloved finger to check prostate size (digital rectal exam). You may need to be screened for prostate cancer if: You have risk factors of prostate cancer, such as being or having a close family member with prostate cancer. You have inherited gene changes or a genetic condition, including BRCA1 or BRCA2 gene mutations or Luevano syndrome. You have symptoms of prostate cancer, such as problems urinating or erectile dysfunction. Prostate cancer screening for men with average risk may start at age 50. Men with risk factors may need to be screened earlier at age 40 45. Once you have been screened for prostate cancer, future screening may be recommended based on the results of your blood tests. Colorectal cancer All adults should have screening for colorectal cancer starting at age 50 and continuing until age 75. Your health care provider may recommend screening at age 45. You will have tests every 1 10 years, depending on your results and the type of screening test. If you have a family history of colon or rectal cancer or other risk factors, you may need to start having screenings earlier. Talk with your health care provider about which screening test is right for you and how often you should be screened. Colorectal cancer screening looks for cancer or for growths called polyps that often form before cancer starts. Tests to look for cancer or polyps include: Colonoscopy or flexible sigmoidoscopy. For these procedures, a flexible tube with a small camera is inserted into the rectum. CT colonography. This test uses X-rays and a contrast dye to check the colon for polyps. If a polyp is found, you may need to have a colonoscopy so the polyp can be located and removed. Tests to look for cancer in the stool (feces) include: Guaiac-based fecal occult blood test (FOBT). This test detects blood in stool. It can be done at home with a kit. Fecal immunochemical test (FIT). This test detects blood in stool. For this test, you will need to collect stool samples at home. Stool DNA test. This test looks for blood in stool and any changes in DNA that can lead to colon cancer. For this test, you will need to collect a stool sample at home and send it to a lab. Skin cancer Skin cancer screening is done by checking the skin for unusual moles or spots and any changes in existing moles. Your health care provider should check your skin for signs of skin cancer at every physical exam. You should check your skin every month and tell your health care provider right away if anything looks unusual. Men with a usqkla-ctev-xilrvn risk for skin cancer may want to see a green building design specialist (massage coordinator) for an annual body check. Where to find more information National [facility] [place]: https://www.cancer.gov/about-can cer/screening Centers for Disease Control and Prevention: https://www.cdc.gov/cancer/dcpc/ prevention/screening.htm [place] [employer]: https://www.cancer.org/latest-ne ws/8-itbuxz-wbkwmpkzb-tests-for- men.html Contact a health care provider if: You have concerns about any signs or symptoms of cancer, such as: ?Moles that have an unusual shape or color. ?Changes in existing moles. ?A sore on your skin that does not heal. ?Blood in your urine or stool. ?Fatigue that does not go away. ?Frequent pain or cramping in your abdomen. ?Coughing or trouble breathing that does not go away. ?Coughing up blood. ?Losing weight without trying. ?Changes in urination habits. ?Painful urination or ejaculation. Summary Be aware of and watch for signs and symptoms of cancer, especially symptoms of lung cancer, prostate cancer, colorectal cancer, and skin cancer. Early detection of cancer with cancer screening may save your life. Talk with your health care provider about your specific cancer risks. Work together with your health care provider to create a cancer screening plan that is right for you. This information is not intended to replace advice given to you by your health care provider. Make sure you discuss any questions you have with your health care provider. Document Released: 12/07/2016 Document Revised: 11/29/2018 Document Reviewed: 12/07/2016 [employer] Patient Education 2020 [employer]. Follow Up Care 07/06/2022 15:18:38 With:VARSHA MCPHERSON, Maia Marie, URL Address: [facility] [address], [place] [id number]- When: Unknown [facility] 01-27-2022 Hospital Discharge instructions Patient Education 01/27/2022 08:57:58 Urethral Stricture Urethral Stricture Urethral stricture is narrowing of the tube (urethra) that carries urine from the bladder out of the body. The urethra can become narrow due to scar tissue from an injury or infection. This can make it difficult to pass urine. In women, the urethra opens above the vaginal opening. In men, the urethra opens at the tip of the penis, and the urethra is much longer than it is in women. Because of the length of the male urethra, urethral stricture is much more common in men. This condition is treated with surgery. What are the causes? In both men and women, common causes of urethral stricture include: Urinary tract infection (UTI). Sexually transmitted infection (STI). Use of a tube placed into the urethra to drain urine from the bladder (urinary catheter). Urinary tract surgery. In men, common causes of urethral stricture include: A severe injury to the pelvis. Prostate surgery. Injury to the penis. In many cases, the cause of urethral stricture is not known. What increases the risk? You are more likely to develop this condition if you: Are male. Men who have had prostate surgery are at risk of developing this condition. Use a urinary catheter. Have had urinary tract surgery. What are the signs or symptoms? The main symptom of this condition is difficulty passing urine. This may cause decreased urine flow, dribbling, or spraying of urine. Other symptom of this condition may include: Frequent UTIs. Blood in the urine. Pain when urinating. Swelling of the penis in men. Inability to pass urine (urinary obstruction). How is this diagnosed? This condition may be diagnosed based on: Your medical history and a physical exam. Urine tests to check for infection or bleeding. X-rays. Ultrasound. Retrograde urethrogram. This is a type of test in which dye is injected into the urethra and then an X-ray is taken. Urethroscopy. This is when a thin tube with a light and camera on the end (urethroscope) is used to look at the urethra. How is this treated? This condition is treated with surgery. The type of surgery that you have depends on the severity of your condition. You may have: Urethral dilation. In this procedure, the narrow part of the urethra is stretched open (dilated) with dilating instruments or a small balloon. Urethrotomy. In this procedure, a urethroscope is placed into the urethra, and the narrow part of the urethra is cut open with a surgical blade inserted through the urethroscope. Open surgery. In this procedure, an incision is made in the urethra, the narrow part is removed, and the urethra is reconstructed. Follow these instructions at home: Take aese-ssr-jonosoy and prescription medicines only as told by your health care provider. If you were prescribed an antibiotic medicine, take it as told by your health care provider. Do not stop taking the antibiotic even if you start to feel better. Drink enough fluid to keep your urine pale yellow. Keep all follow-up visits as told by your health care provider. This is important. Contact a health care provider if: You have signs of a urinary tract infection, such as: ?Frequent urination or passing small amounts of urine frequently. ?Needing to urinate urgently. ?Pain or burning with urination. ?Urine that smells bad or unusual. ?Cloudy urine. ?Pain in the lower abdomen or back. ?Trouble urinating. ?Blood in the urine. ?Vomiting or being less hungry than normal. ?Diarrhea or abdominal pain. ?Vaginal discharge, if you are female. Your symptoms are getting worse instead of better. Get help right away if: You cannot pass urine. You have a fever. You have swelling, bruising, or discoloration of your genital area. This includes the penis, scrotum, and inner thighs for men, and the outer genital organs (vulva) and inner thighs for women. You develop swelling in your legs. You have difficulty breathing. Summary Urethral stricture is narrowing of the tube (urethra) that carries urine from the bladder out of the body. The urethra can become narrow due to scar tissue from an injury or infection. This condition can make it difficult to pass urine. This condition is treated with surgery. The type of surgery that you have depends on the severity of your condition. Contact a health care provider if your symptoms get worse or you have signs of a urinary tract infection. This information is not intended to replace advice given to you by your health care provider. Make sure you discuss any questions you have with your health care provider. Document Released: 04/07/2016 Document Revised: 10/23/2018 Document Reviewed: 10/23/2018 [employer] Patient Education 2020 [employer]. Follow Up Care 07/25/2021 09:40:34 With:VARSHA MCPHERSON, Maia Marie, URL Address: [address] [place], [place] [id number]- When: Unknown [facility] 07-25-2021 Hospital Discharge instructions Patient Education 07/25/2021 09:31:42 Calorie Counting for Weight Loss Calorie Counting for Weight Loss Calories are units of energy. Your body needs a certain amount of calories from food to keep you going throughout the day. When you eat more calories than your body needs, your body stores the extra calories as fat. When you eat fewer calories than your body needs, your body crabtree fat to get the energy it needs. Calorie counting means keeping track of how many calories you eat and drink each day. Calorie counting can be helpful if you need to lose weight. If you make sure to eat fewer calories than your body needs, you should lose weight. Ask your health care provider what a healthy weight is for you. For calorie counting to work, you will need to eat the right number of calories in a day in order to lose a healthy amount of weight per week. A dietitian can help you determine how many calories you need in a day and will give you suggestions on how to reach your calorie goal. A healthy amount of weight to lose per week is usually 1 2 lb (0.5 0.9 kg). This usually means that your daily calorie intake should be reduced by 500 750 calories. Eating 1,200 1,500 calories per day can help most women lose weight. Eating 1,500 1,800 calories per day can help most men lose weight. What is my plan? My goal is to have calories per day. If I have this many calories per day, I should lose around pounds per week. What do I need to know about calorie counting? In order to meet your daily calorie goal, you will need to: Find out how many calories are in each food you would like to eat. Try to do this before you eat. Decide how much of the food you plan to eat. Write down what you ate and how many calories it had. Doing this is called keeping a food log. To successfully lose weight, it is important to balance calorie counting with a healthy lifestyle that includes regular activity. Aim for 150 minutes of moderate exercise (such as walking) or 75 minutes of vigorous exercise (such as running) each week. Where do I find calorie information? The number of calories in a food can be found on a Nutrition Facts label. If a food does not have a Nutrition Facts label, try to look up the calories online or ask your dietitian for help. Remember that calories are listed per serving. If you choose to have more than one serving of a food, you will have to multiply the calories per serving by the amount of servings you plan to eat. For example, the label on a package of bread might say that a serving size is 1 slice and that there are 90 calories in a serving. If you eat 1 slice, you will have eaten 90 calories. If you eat 2 slices, you will have eaten 180 calories. How do I keep a food log? Immediately after each meal, record the following information in your food log: What you ate. Don't forget to include toppings, sauces, and other extras on the food. How much you ate. This can be measured in cups, ounces, or number of items. How many calories each food and drink had. The total number of calories in the meal. Keep your food log near you, such as in a small notebook in your pocket, or use a mobile martín or website. Some programs will calculate calories for you and show you how many calories you have left for the day to meet your goal. What are some calorie counting tips? Use your calories on foods and drinks that will fill you up and not leave you hungry: ?Some examples of foods that fill you up are nuts and nut butters, vegetables, lean proteins, and high-fiber foods like whole grains. High-fiber foods are foods with more than 5 g fiber per serving. ?Drinks such as sodas, specialty coffee drinks, alcohol, and juices have a lot of calories, yet do not fill you up. Eat nutritious foods and avoid empty calories. Empty calories are calories you get from foods or beverages that do not have many vitamins or protein, such as candy, sweets, and soda. It is better to have a nutritious high-calorie food (such as an avocado) than a food with few nutrients (such as a bag of chips). Know how many calories are in the foods you eat most often. This will help you calculate calorie counts faster. Pay attention to calories in drinks. Low-calorie drinks include water and unsweetened drinks. Pay attention to nutrition labels for low fat or fat free foods. These foods sometimes have the same amount of calories or more calories than the full fat versions. They also often have added sugar, starch, or salt, to make up for flavor that was removed with the fat. Find a way of tracking calories that works for you. Get creative. Try different apps or programs if writing down calories does not work for you. What are some portion control tips? Know how many calories are in a serving. This will help you know how many servings of a certain food you can have. Use a measuring cup to measure serving sizes. You could also try weighing out portions on a kitchen scale. With time, you will be able to estimate serving sizes for some foods. Take some time to put servings of different foods on your favorite plates, bowls, and cups so you know what a serving looks like. Try not to eat straight from a bag or box. Doing this can lead to overeating. Put the amount you would like to eat in a cup or on a plate to make sure you are eating the right portion. Use smaller plates, glasses, and bowls to prevent overeating. Try not to multitask (for example, watch TV or use your computer) while eating. If it is time to eat, sit down at a table and enjoy your food. This will help you to know when you are full. It will also help you to be aware of what you are eating and how much you are eating. What are tips for following this plan? Reading food labels Check the calorie count compared to the serving size. The serving size may be smaller than what you are used to eating. Check the source of the calories. Make sure the food you are eating is high in vitamins and protein and low in saturated and trans fats. Shopping Read nutrition labels while you shop. This will help you make healthy decisions before you decide to purchase your food. Make a grocery list and stick to it. Cooking Try to cook your favorite foods in a healthier way. For example, try baking instead of frying. Use low-fat dairy products. Meal planning Use more fruits and vegetables. Half of your plate should be fruits and vegetables. Include lean proteins like poultry and fish. How do I count calories when eating out? Ask for smaller portion sizes. Consider sharing an entree and sides instead of getting your own entree. If you get your own entree, eat only half. Ask for a box at the beginning of your meal and put the rest of your entree in it so you are not tempted to eat it. If calories are listed on the menu, choose the lower calorie options. Choose dishes that include vegetables, fruits, whole grains, low-fat dairy products, and lean protein. Choose items that are boiled, broiled, grilled, or steamed. Stay away from items that are buttered, battered, fried, or served with cream sauce. Items labeled crispy are usually fried, unless stated otherwise. Choose water, low-fat milk, unsweetened iced tea, or other drinks without added sugar. If you want an alcoholic beverage, choose a lower calorie option such as a glass of wine or light beer. Ask for dressings, sauces, and syrups on the side. These are usually high in calories, so you should limit the amount you eat. If you want a salad, choose a garden salad and ask for grilled meats. Avoid extra toppings like del cid, cheese, or fried items. Ask for the dressing on the side, or ask for olive oil and vinegar or lemon to use as dressing. Estimate how many servings of a food you are given. For example, a serving of cooked rice is cup or about the size of half a baseball. Knowing serving sizes will help you be aware of how much food you are eating at restaurants. The list below tells you how big or small some common portion sizes are based on everyday objects: ?1 oz 4 stacked dice. ?3 oz 1 deck of cards. ?1 tsp 1 . ?1 Tbsp a ping-pong ball. ?2 Tbsp 1 ping-pong ball. ? cup baseball. ?1 cup 1 baseball. Summary Calorie counting means keeping track of how many calories you eat and drink each day. If you eat fewer calories than your body needs, you should lose weight. A healthy amount of weight to lose per week is usually 1 2 lb (0.5 0.9 kg). This usually means reducing your daily calorie intake by 500 750 calories. The number of calories in a food can be found on a Nutrition Facts label. If a food does not have a Nutrition Facts label, try to look up the calories online or ask your dietitian for help. Use your calories on foods and drinks that will fill you up, and not on foods and drinks that will leave you hungry. Use smaller plates, glasses, and bowls to prevent overeating. This information is not intended to replace advice given to you by your health care provider. Make sure you discuss any questions you have with your health care provider. Document Released: 03/12/2006 Document Revised: 11/29/2018 Document Reviewed: 02/09/2017 [employer] Patient Education 2020 [employer]. 07/25/2021 09:31:28 Prostate Cancer Screening Prostate Cancer Screening The prostate is a walnut-sized gland that is located below the bladder and in front of the rectum in males. The function of the prostate (prostate gland) is to add fluid to semen during ejaculation. Prostate cancer is the second most common type of cancer in men. A screening test for cancer is a test that is done before cancer symptoms start. Screening can help to identify cancer at an early stage, when the cancer can be treated more easily. The recommended prostate cancer screening test is a blood test called the prostate-specific antigen (PSA) test. PSA is a protein that is made in the prostate. As you age, your prostate naturally produces more PSA. Abnormally high PSA levels may be caused by: Prostate cancer. An enlarged prostate that is not caused by cancer (benign prostatic hyperplasia, BPH). This condition is very common in older men. A prostate gland infection (prostatitis). Medicines to assist with hair growth, such as finasteride. Depending on the PSA results, you may need more tests, such as: A physical exam to check the size of your prostate gland. Blood and imaging tests. A procedure to remove tissue samples from your prostate gland for testing (biopsy). Who should have screening? Screening recommendations vary based on age. If you are younger than age 40, screening is not recommended. If you are age 40 54 and you have no risk factors, screening is not recommended. If you are younger than age 55, ask your health care provider if you need screening if you have one of these risk factors: ?Being of -Emir[place] descent. ?Having a family history of prostate cancer. If you are age 55 69, talk with your health care provider about your need for screening and how often screening should be done. If you are older than age 70, screening is not recommended. This is because the risks that screening can cause are greater than the benefits that it may provide (risks outweigh the benefits). If you are at high risk for prostate cancer, your health care provider may recommend that you have screenings more often or start screening at a younger age. You may be at high risk if you: Are older than age 55. Are -Emirati. Have a father, brother, or uncle who has been diagnosed with prostate cancer. The risk may be higher if your family member's cancer occurred at an early age. What are the benefits of screening? There is a small chance that screening may lower your risk of dying from prostate cancer. The chance is small because prostate cancer is typically a slow-growing cancer, and most men with prostate cancer from a different cause. What are the risks of screening? The main risk of prostate cancer screening is diagnosing and treating prostate cancer that would never have caused any symptoms or problems (overdiagnosis and overtreatment). PSA screening cannot tell you if your PSA is high due to cancer or a different cause. A prostate biopsy is the only procedure to diagnose prostate cancer. Even the results of a biopsy may not tell you if your cancer needs to be treated. Slow-growing prostate cancer may not need any treatment other than monitoring, so diagnosing and treating it may cause unnecessary stress or other side effects. A prostate biopsy may also cause: Infection or fever. A false negative. This is a result that shows that you do not have prostate cancer when you actually do have prostate cancer. Questions to ask your health care provider When should I start prostate cancer screening? What is my risk for prostate cancer? How often do I need screening? What type of screening tests do I need? How do I get my test results? What do my results mean? Do I need treatment? Contact a health care provider if: You have difficulty urinating. You have pain when you urinate or ejaculate. You have blood in your urine or semen. You have pain in your back or in the area of your prostate. You have trouble getting or maintaining an erection (erectile dysfunction, ED). Summary Prostate cancer is a common type of cancer in men. The prostate (prostate gland) is located below the bladder and in front of the rectum. This gland adds fluid to semen during ejaculation. Prostate cancer screening may identify cancer at an early stage, when the cancer can be treated more easily. The prostate-specific antigen (PSA) test is the recommended screening test for prostate cancer. Discuss the risks and benefits of prostate cancer screening with your health care provider. If you are age 70 or older, screening is likely to lead to more risks than benefits (risks outweigh the benefits). This information is not intended to replace advice given to you by your health care provider. Make sure you discuss any questions you have with your health care provider. Document Released: 12/21/2017 Document Revised: 02/22/2018 Document Reviewed: 12/21/2017 [employer] Patient Education 2020 [employer]. 07/25/2021 09:31:23 Prostate Cancer Prostate Cancer The prostate is a walnut-sized gland that is involved in the production of semen. It is located below a man's bladder, in front of the rectum. Prostate cancer is the abnormal growth of cells in the prostate gland. What are the causes? The exact cause of this condition is not known. What increases the risk? This condition is more likely to develop in men who: Are older than age 65. Are -Emirati. Are obese. Have a family history of prostate cancer. Have a family history of breast cancer. What are the signs or symptoms? Symptoms of this condition include: A need to urinate often. Weak or interrupted flow of urine. Trouble starting or stopping urination. Inability to urinate. Pain or burning during urination. Painful ejaculation. Blood in urine or semen. Persistent pain or discomfort in the lower back, lower abdomen, hips, or upper thighs. Trouble getting an erection. Trouble emptying the bladder all the way. How is this diagnosed? This condition can be diagnosed with: A digital rectal exam. For this exam, a health care provider inserts a gloved finger into the rectum to feel the prostate gland. A blood test called a prostate-specific antigen (PSA) test. An imaging test called transrectal ultrasonography. A procedure in which a sample of tissue is taken from the prostate and examined under a microscope (prostate biopsy). Once the condition is diagnosed, tests will be done to determine how far the cancer has spread. This is called staging the cancer. Staging may involve imaging tests, such as: A bone scan. A CT scan. A PET scan. An MRI. The stages of prostate cancer are as follows: Stage I. At this stage, the cancer is found in the prostate only. The cancer is not visible on imaging tests and it is usually found by accident, such as during a prostate surgery. Stage II. At this stage, the cancer is more advanced than it is in stage I, but the cancer has not spread outside the prostate. Stage III. At this stage, the cancer has spread beyond the outer layer of the prostate to nearby tissues. The cancer may be found in the seminal vesicles, which are near the bladder and the prostate. Stage IV. At this stage, the cancer has spread other parts of the body, such as the lymph nodes, bones, bladder, rectum, liver, or lungs. How is this treated? Treatment for this condition depends on several factors, including the stage of the cancer, your age, personal preferences, and your overall health. Talk with your health care provider about treatment options that are recommended for you. Common treatments include: Observation for early stage prostate cancer (active surveillance). This involves having exams, blood tests, and in some cases, more biopsies. For some men, this is the only treatment needed. Surgery. Types of surgeries include: ?Open surgery. In this surgery, a larger incision is made to remove the prostate. ?A laparoscopic prostatectomy. This is a surgery to remove the prostate and lymph nodes through several, small incisions. It is often referred to as a minimally invasive surgery. ?A robotic prostatectomy. This is a surgery to remove the prostate and lymph nodes with the help of a robotic arm that is controlled by a computer. ?Orchiectomy. This is a surgery to remove the testicles. ?Cryosurgery. This is a surgery to freeze and destroy cancer cells. Radiation treatment. Types of radiation treatment include: ?External beam radiation. This type aims beams of radiation from outside the body at the prostate to destroy cancerous cells. ?Brachytherapy. This type uses radioactive needles, seeds, wires, or tubes that are implanted into the prostate gland. Like external beam radiation, brachytherapy destroys cancerous cells. An advantage is that this type of radiation limits the damage to surrounding tissue and has fewer side effects. High-intensity, focused ultrasonography. This treatment destroys cancer cells by delivering high-energy ultrasound waves to the cancerous cells. Chemotherapy medicines. This treatment kills cancer cells or stops them from multiplying. Hormone treatment. This treatment involves taking medicines that act on one of the male hormones (testosterone): ?By stopping your body from producing testosterone. ?By blocking testosterone from reaching cancer cells. Follow these instructions at home: Take [id number] and prescription medicines only as told by your health care provider. Maintain a healthy diet. Get plenty of sleep. Consider joining a support group for men who have prostate cancer. Meeting with a support group may help you learn to cope with the stress of having cancer. Keep all follow-up visits as told by your health care provider. This is important. If you have to go to the hospital, notify your cancer specialist (oncologist). Treatment for prostate cancer may affect sexual function. Continue to have intimate moments with your partner. This may include touching, holding, hugging, and caressing. Contact a health care provider if: You have trouble urinating. You have blood in your urine. You have pain in your hips, back, or chest. Get help right away if: You have weakness or numbness in your legs. You cannot control urination or your bowel movements (incontinence). You have trouble breathing. You have sudden chest pain. You have chills or a fever. Summary The prostate is a walnut-sized gland that is involved in the production of semen. It is located below a man's bladder, in front of the rectum. Prostate cancer is the abnormal growth of cells in the prostate gland. Treatment for this condition depends on several factors, including the stage of the cancer, your age, personal preferences, and your overall health. Talk with your health care provider about treatment options that are recommended for you. Consider joining a support group for men who have prostate cancer. Meeting with a support group may help you learn to cope with the stress of having cancer. This information is not intended to replace advice given to you by your health care provider. Make sure you discuss any questions you have with your health care provider. Document Released: 03/12/2006 Document Revised: 02/22/2018 Document Reviewed: 11/20/2016 [employer] Patient Education [employer] [facility] 04/04/2021 09:41:32 With:VARSHA MCPHERSON, Maia Marie, URL Address: [facility] [address] [place] [address]- [phone] When:01/25/2022 Comments:follow up 6 months with PSA [facility] 07-06-2020 Note HNO ID: [id number] Author: Palmira Garcia Service: ? Author Type: Physician Type: Progress Notes Filed: 07/09/2020 8:13 AM Note Text: Radiation Oncology - Prostate Cancer New Patient/Consult Note PATIENT NAME: Yue Delgadillo PATIENT REQUESTING PROVIDER: Dr. Maddox DIAGNOSIS: 70 year old male with prostate adenocarcinoma, initial PSA 8.07, biopsy [place] score 4 + 4 = 8 (grade group 4), clinical stage T1c, N0, M0, stage IIC [T1-T2, N0, M0, PSA <20, GG 4] (AJCC 8th ed.), s/p TRUS Random biopsy. HPI: 70 year old male with prostate adenocarcinoma who presents for an opinion regarding the role of radiation therapy in the management of the patient's disease. Final recommendations will be communicated back to the requesting physician by way of the shared medical record, or letter to requesting physician via US mail. The patient was diagnosed with prostate cancer and comes in today to discuss treatment options. Patient presented with an elevated PSA of 7.26 on 04/13/2020. This is repeated on 04/23/2020 with a value of 8.07 with 11.8% free. Patient had had previous negative prostate biopsy approximately 10 years ago. PSA history: 11/30/2015 4.22 01/08/2018 5.28 Prostate biopsy on June 17, 2020 revealed: Adenocarcinoma, Rama 8 (4+4) from the L2, L3, L4 biopsy cores(2/2 each area). No disease noted from the cores on the right. Ultrasound showing 38.6 cm? gland slightly heterogeneous, without hypoechoic areas. Total # of positive biopsy cores: 6 Total # of biopsy cores sampled: 16 Greatest % cancer in any single core: 25-50% Staging Studies: Bone Scan Results: 07/01/2020 no evidence of metastatic disease. CAT Scan Results: 07/01/2020, CT abdomen and pelvis, cholelithiasis without evidence of acute cholecystitis. No evidence amount of metastatic disease. Mildly enlarged prostate measuring 5.6 cm. Previous Treatment for Prostate Cancer: None Genomic Testing: None The patient reports the following pertinent history: Urinary frequency (D/N): 4-5/1 Dysuria: No Incontinence: 1- No pads Hematuria: No - Total AUA Score: 6 Bowel Movement Frequency: 1/day Bowel Movement Quality: Normal Blood per Rectum: No Baseline Erectile Function: 4- Diminished but unsatisfactory for intercourse Androgen Deprivation: none Prior Radiation Therapy, Collagen Vascular Disease, or Inflammatory Bowel Disease: No Currently on Anticoagulation: Yes, fpc ASA History of Hip Replacement: No History of Prior TURP: No ALLERGIES Allergen Reactions - Cipro [Ciprofloxaci* Other: See Comments Anxiousness - Erythromycin Hives And anxiousness - Pork Derived (Porci* Hives ALLOPURINOL ORAL Take 300 mg by mouth once daily. amLODIPine (NORVASC) 10 mg tablet Take 10 mg by mouth once daily. aspirin, enteric coated (ASPIRIN, ENTERIC COATED) 81 mg EC tablet Take 81 mg by mouth once daily. docosahexaenoic acid/epa (FISH OIL ORAL) Take 1,000 mg by mouth once daily. hydroCHLOROthiazide (HYDRODIURIL, ESIDRIX) 25 mg tablet Take 25 mg by mouth once daily. MULTI-VITAMIN ORAL Take by mouth once daily. omeprazole (PRILOSEC) 20 mg capsule Take 20 mg by mouth once daily. simvastatin (ZOCOR) 20 mg tablet Take 20 mg by mouth daily at bedtime. PAST MEDICAL HISTORY Diagnosis Date - Arthritis - Asthma - Hx of gout - Hyperlipidemia - Hypertension - Prostate cancer (HCC) PAST SURGICAL HISTORY Procedure Laterality Date - APPENDECTOMY HX - TOTAL KNEE REPLACEMENT Right 12/2019 FAMILY HISTORY Problem Relation Age of Onset - Cancer Sister Breast - Cancer Sister Ovarian cancer- 74 years old Social History Tobacco Use - Smoking status: Former Smoker Quit date: 07/06/1974 Years since quittin.0 - Smokeless tobacco: Never Used Vaping Use - Vaping Use: Never used Substance Use Topics - Alcohol use: Yes Alcohol/week: 6.0 standard drinks Types: 6 Cans of Beer (12oz) per week Comment: 1- 6 pack/week - Drug use: Never REVIEW OF SYSTEMS: GENERAL: Negative for weight loss, fevers, chills, or night sweats. HEENT: Negative for sudden vision or hearing changes. NECK: Negative for masses in the neck. RESPIRATORY: Negative for cough or shortness of breath. CARDIAC: Negative for chest pain, palpitations, murmurs, or syncopal episodes. GASTROINTESTINAL: See HPI GENITOURINARY: See HPI MUSCULOSKELETAL: Negative for limitations in movement, pain, or swelling. NEURO: Negative for dizziness, headache, weakness or numbness. HEMATOLOGIC: Negative for bleeding or easy bruising. SKIN: Negative for rashes or other skin changes. PHYSICAL EXAM: VS: BP 106/82 Pulse 68 Temp 36.7 ?C (98.1 ?F) Resp 16 Wt 95.9 kg (211 lb 6.4 oz) SpO2 95% KARNOFSKY PERFORMANCE STATUS: 100 General Appearance: Alert and oriented. No acute distress. HEENT: NCAT. Sclera anicteric. PERRL. EOMI. Neck: Normal ROM. No palpable cervical or supraclavicular ad (more content not included)... [facility] Evaluation + Plan note Future Appointments Appointment Date:01/27/2022 08:00:00 AM Scheduled Provider:Maia MADDOX MD Location:[facility] Appointment Type:URO Office Visit Diagnostic Tests PendingPSA Total 07/25/21 [facility] Evaluation + Plan note Future Appointments Appointment Date:07/31/2022 09:15:00 AM Scheduled Provider:Maia MADDOX MD Location:[facility] Appointment Type:URO Office Visit Diagnostic Tests PendingPSA Total 05/24/22 [facility] Evaluation + Plan note Future Appointments Appointment Date:01/12/2023 08:30:00 AM Scheduled Provider:Maia MADDOX MD Location:[facility] Appointment Type:URO Office Visit Diagnostic Tests PendingPSA Total 07/10/22 [facility] Evaluation + Plan note Future Appointments Appointment Date:03/31/2024 08:45:00 AM Scheduled Provider:Maia MADDOX MD Location:[facility] Appointment Type:URO Office Visit Diagnostic Tests PendingPSA Total 01/25/24 [facility] Evaluation + Plan note Future Appointments Appointment Date:03/30/2025 08:45:00 AM Scheduled Provider:Maia MADDOX MD Location:[facility] Appointment Type:URO Office Visit Diagnostic Tests PendingPSA Total 03/31/24 [facility] Evaluation note Diagnosis Routine general medical examination at a health care facility- Primary Essential hypertension Unspecified essential hypertension Prostate cancer (CMS-HCC) Malignant neoplasm of prostate Chronic gout involving toe without tophus, unspecified cause, unspecified laterality Mixed hyperlipidemia Asthma in adult, mild persistent, uncomplicated documented in this encounter [facility] Diagnosis Acute swimmer's ear of right side- Primary Vertigo Dizziness and giddiness Right ear pain Unspecified otalgia Sensorineural hearing loss (SNHL) of left ear with restricted hearing of right ear Mixed conductive and 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 Middle ear effusion, right documented [facility] this encounter [facility] Diagnosis Right ear pain- Primary Unspecified otalgia Mixed conductive and 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 Acute middle ear effusion, right Mastoiditis of right side [facility] Diagnosis Mastoiditis of right side- Primary Mastoiditis of right side 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 Acute swimmer's ear of right side Essential hypertension Unspecified essential hypertension Hyperlipidemia Other and unspecified hyperlipidemia Asthma in adult, mild persistent, uncomplicated documented [facility] Diagnosis Right ear pain- Primary Unspecified otalgia Mixed conductive and 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 Mastoiditis of right side documented in this encounter 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 with restricted hearing of right ear [facility] Diagnosis Routine general medical examination at a health care facility- Primary Prostate cancer ([facility]) Malignant neoplasm of prostate Essential hypertension Unspecified essential hypertension Mixed hyperlipidemia documented [facility] N[facility] No data available for this section [facility] InstructionsNot on filedocumented in this encounter [facility] filedocumented in this encounter [facility]ructionsNot on filedocumented in this encounter [facility] filedocumented in this encounter [facility] filedocumented in this encounter [facility] on filedocumented in this encounter [facility] on filedocumented in this encounter [facility] on filedocumented in this encounter [facility]Not on filedocumented in this encounter [facility]Not on filedocumented in this encounter [facility]ructionsNot on filedocumented in this encounter [facility]ructionsNot on filedocumented in this encounter [facility] note No data available for this section [facility] [place] reason for referral (narrative)* Consultation (Routine) - Pending Review Specialty Diagnoses / Procedures Referred By Kb howard Referred To Contact Diagnoses Mastoiditis of right side Georgie Menendez MD [address] [place] [address] Referral ID Status Reason Start Date Expiration Date V isits Requested Visits Authorized [id number] Pending Review 12/31/2023 12/30/2024 1 1 * Misc (Routine) - Pending Review Specialty Diagnoses / Procedures Referred By Kb howard Referred To Contact Diagnoses Mastoiditis of right side Procedures Follow-up with primary care provider Georgie Menendez MD [address] [place] [address] Referral ID Status Reason Start Date Expiration Date V isits Requested Visits Authorized [id number] Pending Review 12/31/2023 12/30/2024 1 1 * Misc (Routine) - Pending Review Specialty Diagnoses / Procedures Referred By Kb howard Referred To Contact Procedures Adult diet Georgie Menendez MD [address] [place] [address] Referral ID Status Reason Start Date Expiration Date V isits Requested Visits Authorized [id number] Pending Review 12/31/2023 12/30/2024 1 1 [facility] Summary Purpose Family History No Family History Records FoundNo Family History Records FoundNo Family History Records FoundNo Family History Records Found No data available for this section No Family History Records FoundNo Family History Records FoundNo Family History Records FoundNo Family History Records FoundNo Family History Records FoundNo Family History Records Found No data available for this section No Family History Records Found Advance Directives Latest Code Status on File Code Status Date Activated Date Inactivated Comments Full Code 05/14/2017 5:39 PM 05/15/2017 8:12 PM Date Activated Date Inactivated Comments 05/14/2017 5:39 PM 05/15/2017 8:12 PM Date Activated Date Inactivated Comments 12/26/2023 4:14 PM Date Activated Date Inactivated Comments 05/14/2017 5:39 PM 05/15/2017 8:12 PM Date Activated Date Inactivated Comments 12/26/2023 4:14 PM 12/31/2023 5:30 PM Date Activated Date Inactivated Comments 05/14/2017 5:39 PM 05/15/2017 8:12 PM Date Activated Date Inactivated Comments 12/26/2023 4:14 PM 12/31/2023 5:30 PM Additional Source Comments (unrecognized sect ion and content) No Status Records FoundNo Status Records FoundNo Status Records FoundNo Status Records FoundNo Status Records FoundNo Status Records FoundNo Status Records FoundNo Status Records FoundNo Status Records FoundNo Status Records FoundNo Status Records Found INFORMATION SOURCE (unrecogn ized section and content) DATE CREATED AUTHOR 09/14/2017 [facility] DATE CREATED AUTHOR AUTHOR'S ORGANIZ ATION 05/07/[address] [facility] DATE CREATED AUTHOR AUTHOR'S ORGANIZ ATION 04/24/2021 [facility] DATE CREATED AUTHOR AUTHOR'S ORGANIZ ATION 07/13/2022 [facility] DATE CREATED AUTHOR AUTHOR'S ORGANIZ ATION 05/26/2023 [facility] DATE CREATED AUTHOR AUTHOR'S ORGANIZ ATION 07/24/2023 [facility] DATE CREATED AUTHOR AUTHOR'S ORGANIZ ATION 01/04/2024 [facility] DATE CREATED AUTHOR AUTHOR'S ORGANIZ ATION 01/17/2024 [facility] DATE CREATED AUTHOR AUTHOR'S ORGANIZ ATION 02/04/2024 [facility] DATE CREATED AUTHOR AUTHOR'S ORGANIZ ATION 02/22/2024 [facility] DATE CREATED AUTHOR AUTHOR'S ORGANIZ ATION 04/16/2024 [facility] Patient Care team informatio n (unrecognized section and content) [employer] Specialty Start Date End Date Brianna Brunner MD [address] [place] [address], [address] [place] [address] PCP - General Pediatrics 11/17/16 [employer] Specialty Start Date End Date Brianna Brunner MD [address] [place] [address], [address] [place] [address] PCP - General Pediatrics 11/17/16 [employer] Specialty Start Date End Date Brianna Brunner MD [address] [place] [address], [address] [place] [address] PCP - General Pediatrics 11/17/16 [employer] Specialty Start Date End Date Brianna Brunner MD [address] [place] [address], [address] [place] [address] PCP - General Pediatrics 11/17/16 [employer] Relationship Specialty Start Date End Date Brianna Brunner MD [address] [place] [address], [address] [place] [address] PCP - General Pediatrics 11/17/16 [employer] Specialty Start Date End Date Brianna Brunner MD [address] [place] [address], [address] [place] [address] PCP - General Pediatrics 11/17/16 [employer] Specialty Start Date End Date Brianna Brunner MD [address] [place] [address], [address] [place] [address] PCP - General Pediatrics 11/17/16 [employer] Specialty Start Date End Date Brianna Brunner MD [address] [place] [address], [address] [place] [address] PCP - General Pediatrics 11/17/16 [employer] Specialty Start Date End Date Brianna Brunner MD [address] [place] [address], [address] [place] [address] PCP - General Pediatrics 11/17/16 [employer] Specialty Start Date End Date Brianna Brunner MD [address] [place] [address], [address] [place] [address] PCP - General Pediatrics 11/17/16 [employer] Specialty Start Date End Date Brianna Brunner MD [address] [place] [address], [address] [place] [address] PCP - General Pediatrics 11/17/16 [employer] Specialty Start Date End Date Brianna Brunner MD [address] [place] [address], [address] [place] [address] PCP - General Pediatrics 11/17/16 [employer] Specialty Start Date End Date Brianna Brunner MD [address] [place] [address], [address] [place] [address] PCP - General Pediatrics 11/17/16 [employer] Relationship Specialty Start Date End Date Brianna Brunner MD [address] [facility], [address] [place] [address] PCP - General Pediatrics 11/17/16 [employer] Relationship Specialty Start Date End Date Brianna Brunner MD [address] [place] [address], [address] [place] [address] PCP - General Pediatrics 11/17/16 [employer] Relationship Specialty Start Date End Date Brianna Brunner MD [address] [place] [address], [address] [place] [address] PCP - General Pediatrics 11/17/16 [employer] Specialty Start Date End Date Brianna Brunner MD [address] [place] [address], [address] [place] [address] PCP - General Pediatrics 11/17/16 Reason for Visit (unrecogniz ed section and content) Reason Comments Med Refill Reason Comments Annual Exam wellness Reason Onset Date Comments Med Refill 05/22/2023 Reason Comments Acute swimmer's ear of right side 1 week follow up Reason Comments Follow-up Reason Comments Ear Problem Specialty Diagnoses / Procedures Referred By Contac t Referred To Contact Diagnoses Mastoiditis of right side 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 Trey Lundy MD [address] [place] [address] Referral ID Status Reason Start Date Expiration Date Visits Re quested Visits Authorized [id number] 1 1 Reason Onset Date Comments Transition Of Care 01/01/2024 Reason Comments mastoiditis Reason Onset Date Comments Med Refill 01/05/2024 Reason Comments Hospital Follow-up Reason Comments Annual Exam G0439 Scheduled Active and Recently Administ ered Medications (unrecognized section and content) Medication Order 12/29/2023 12/30/2023 12/31/2023 allopurinoL (ZYLOPRIM) tablet 300 mg 300 mg, oral, Daily, First dose on Hazel 12/27/23 at 0900, Look-alike/sound-alike medication - verify indication for use. 0959 (Given - Provider: Kayleigh Alfredo RN) 1008 (Given - Provider: Kayleigh Alfredo RN) 0933 (Given - Provider: Mey Del Angel RN) amLODIPine (NORVASC) tablet 10 mg 10 mg, oral, Daily, First dose on [place] 12/27/23 at 0945, Look-alike/sound-alike medication - verify indication for use. Avoid grapefruit juice. 0959 (Given - Provider: Kayleigh Alfredo RN) 1008 (Given - Provider: Kayleigh Alfredo RN) 0933 (Given - Provider: Mey Del Angel RN) aspirin EC tablet 81 mg 81 mg, oral, Daily, First dose on Hazel 12/27/23 at 0900, Do not crush or chew. 0959 (Given - Provider: Kayleigh Alfredo RN) 1008 (Given - Provider: Kayleigh Alfredo RN) 0933 (Given - Provider: Mey Del Angel RN) atorvastatin (LIPITOR) tablet 10 mg 10 mg, oral, Daily, First dose on Hazel 12/27/23 at 0900, Look-alike/sound-alike medication - verify indication for use. 0527 (Given - Provider: Selam Pantoja RN) 0522 (Given - Provider: Selam Pantoja RN) 0521 (Given - Provider: Selam Pantoja RN) cefEPime (MAXIPIME) 2,000 mg in sodium chloride 0.9 % 100 mL IVPB-MBP(Linked Group 1) 2,000 mg, intravenous, at 25 mL/hr, Administer over 4 Hours, Every 8 hours, First dose on [place]el 12/27/23 at 2130, ADD-VANTAGE/MBP- Discard 24 hours after activating; dissolve drug prior to administration. Protect dry powder vial from light., Indication: Other, Specify: otomastoiditis 0115 (Stop Bag - Provider: Selam Pantoja RN)0537 (New Bag - Provider: Selam Pantoja RN)0937 (Stop Bag - Provider: Kayleigh Alfredo RN)1524 (New Bag - Provider: Kayleigh Alfredo RN)1924 (Stop Bag - Provider: Selam Pantoja RN)2334 (New Bag - Provider: Selam Pantoja RN) 0334 (Stop Bag - Provider: Selam Pantoja RN)1014 (New Bag - Provider: Kayleigh Alfredo RN)1414 (Stop Bag - Provider: Kayleigh Alfredo RN)1829 (New Bag - Provider: Kayleigh Alfredo RN)2229 (Stop Bag - Provider: Selam Pantoja RN) 0227 (New Bag - Provider: Selam Pantoja RN)0627 (Stop Bag - Provider: Selam Pantoja RN)1033 (New Bag - Provider: Mey Del Angel RN)1433 (Stop Bag - Provider: Mey Del Angel RN) ciprofloxacin-dexAMETHaso ne (CIPRODEX) otic suspension 4 drop 4 drop, right ear, 2 times daily, First dose on Sun12/26/23 at 2100, Look-alike/sound-alike medication - verify indication for use. 0959 (Given - Provider: Kayleigh Alfredo RN)2109 (Given - Provider: Selam Pantoja RN) 100 (Given - Provider: Kayleigh Alfredo RN)2011 (Given - Provider: Selam Pantoja RN) 0933 (Given - Provider: Mey Del Angel, SHERWIN) enoxaparin (LOVENOX) syringe 40 mg 40 mg, subcutaneous, Daily, First dose on Sun12/28/23 at 1430, Look-alike/sound-alike medication - verify indication for use. 0959 (Given - Provider: Kayleigh Alfredo RN) 1008 (Given - Provider: Kayleigh Alfredo RN) 0933 (Given - Provider: Mey Del Angel, SHERWIN) pantoprazole (PROTONIX) EC tablet 40 mg 40 mg, oral, Daily, First dose on Sun12/27/23 at 0600, Look-alike/sound-alike medication - verify indication for use. If patient is receiving enteral feeding, consider alternative PPI or continue IV pantoprazole until the delayed-release tablet can be taken orally, Indication: GERD 0527 (Given - Provider: Selam Pantoja RN) 0522 (Given - Provider: Selam Pantoja RN) 05 (Given - Provider: Selam Pantoja RN) sodium chloride 0.9 % flush 10 mL(Linked Group 2) 10 mL, intravenous, Every 12 hours, First dose on Sun12/31/23 at 1145, PICC line. Administer 10 mL per lumen; 10 mL total (for single lumen flush) 1145 (Not Given - Provider: Mey Del Angel RN - Reason: Other - Comment: line not placed yet) sodium chloride 0.9 % flush 3 mL 3 mL, intravenous, Every 12 hours scheduled, First dose on Sun12/26/23 at 2100 0900 (Not Given - Provider: Kayleigh Alfredo RN - Reason: IV infusing)211 (Given - Provider: Selam Pantoja RN) 1009 (Given - Provider: Kayleigh Alfredo RN)2013 (Given - Provider: Selam Pantoja RN) 1029 (Given - Provider: Mey Del Angel RN) PRN Medication Order 12/29/2023 12/30/2023 12/31/2023 dextrose (GLUTOSE) 40 % gel 15 g 15 g, oral, As needed, low blood sugar, blood glucose less than 70 mg/dL, Starting on Sun12/26/23 at 1719, If patient conscious and taking PO. If blood glucose is not greater than 70 mg/dL after initial treatment, repeat treatment. dextrose 5 % (D5W) infusion 100 mL/hr, intravenous, Continuous PRN, blood glucose less than 70 mg/dL, Starting on Sun12/26/23 at 1719, Use immediately following dextrose 50% or glucagon treatment for patients who are unconscious or NPO. Contact prescriber for additional orders. If blood glucose is not greater than 70 mg/dL after initial treatment, repeat treatment. dextrose 50 % in water (D50W) 50% solution 25 mL 25 mL, intravenous, As needed, low blood sugar, blood glucose less than 70 mg/dL and unconscious or NPO with IV access, Starting on Sun12/26/23 at 1719, Push over 1-3 minutes STAT. If conscious and not NPO, immediately follow with meal tray or high protein (7 grams) snack if tray not available. If NPO, initiate 5% dextrose in water at 100 mL/hr and contact prescriber for additional orders. If blood glucose is not greater than 70 mg/dL after initial treatment, repeat treatment. VESICANT (RED) Warning: HYPERTONIC solution. flu vacc [id number] 6mos up(PF) (FLULAVAL/FLUZONE/FLUARI X TRIV) injection syringe 0.5 mL (COMPLETED) 0.5 mL, intramuscular, During hospitalization, immunization, Starting on Sun12/26/23 at 1518, For 1 dose, If administered intramuscularly, use the following sites based on patient age: Adults, teens and children greater than or equal to 3 years: administer in the deltoid (preferred) or anterolateral thigh. Newborns/Infants and toddlers less than or equal to 2 years: administer in the anterolateral thigh muscle (or the deltoid muscle in a 1-2 years old with sufficient muscle mass). Do NOT administer in the gluteal muscle. Look-alike/sound-alike medication - verify indication for use. Hold if fever greater than 100.4 degrees Fahrenheit (38 C) or if the patient has severe acute cardiac or pulmonary episode that requires ICU. Shake well before use. 1456 (Given - Provider: Mey Del Angel RN) glucagon HCL injection 1 mg 1 mg, intramuscular, As needed, low blood sugar, blood glucose less than 70 mg/dL and unconscious or NPO without IV access., Starting on Sun12/26/23 at 1719, If conscious and not NPO, immediately follow with meal tray or high protein (7Grams) snack if tray not available. If NPO, initiate IV 5% Dextrose/Water at 100 mL/hr and contact prescriber for additional orders. If blood glucose is not greater than 70 mg/dL after initial treatment, repeat treatment. hydrALAZINE (APRESOLINE) injection 10 mg 10 mg, intravenous, Every 6 hours PRN, high blood pressure, Starting on Sun12/28/23 at 0022, For systolic blood pressure greater than 155 mmHg Look-alike/sound-alike medication - verify indication for use. Administer IV doses as a slow IV push; maximum rate: 5 mg/minute. polyethylene glycol (GLYCOLAX) packet 17 g 17 g, oral, Daily PRN, constipation, Starting on Sun12/27/23 at 1456, Look-alike/sound-alike medication - verify indication for use. Dissolve 1 packet (17 gm) in 8 ounces of water, juice, soda, coffee or tea. sodium chloride 0.9 % flush 10 mL 10 mL, intravenous, As needed, line care, Starting on Sun12/26/23 at 1626 sodium chloride 0.9 % flush 10 mL(Linked Group 2) 10 mL, intravenous, As needed, line care, Starting on 12/31/23 at 1136, PICC line. Administer 10 mL to each lumen before and after each use. Administer 10 mL per lumen; 10 mL total (for single lumen flush) sodium chloride 0.9 % flush 20 mL(Linked Group 2) 20 mL, intravenous, As needed, line care, Starting on Sun12/31/23 at 1136, PICC line. Administer 20 mL to each lumen after lab draws, blood infusion, and meds known to precipitate. Administer 20 mL per lumen; 20 mL total (for single lumen flush) sodium chloride 0.9 % flush 3 mL 3 mL, intravenous, As needed, line care, before and after each intermittent use, Starting on Sun12/26/23 at 1719 sodium chloride 0.9 % flush bag 25 mL, intravenous, at 100 mL/hr, Administer over 15 Minutes, As needed, line care, line care after IVPB administration, Starting on Sun12/26/23 at 1719 sodium chloride 0.9 % infusion 20 mL/hr, intravenous, Continuous PRN, to maintain patency of lines, Starting on Sun12/26/23 at 1719 1031 (New Bag - Provider: Mey Del Angel RN) traMADoL (ULTRAM) tablet 75 mg 75 mg, oral, Every 8 hours PRN, severe pain - pain scale 7-10, Starting on Sun12/26/23 at 1719, Look-alike/sound-alike medication - verify indication for use. 0259 (Given - Provider: Selam Pantoja RN)233 (Given - Provider: Selam Pantoja RN) 2230 (Given - Provider: Selam Pantoja RN) Linked Groups Order Group 1: cefEPime (MAXIPIME) 2,000 mg in sodium chloride 0.9 % 100 mL IVPB-MBP (COMPLETED) 2,000 mg, intravenous, at 200 mL/hr, Administer over 30 Minutes, Once, On [place] 12/27/23 at 1330, For 1 dose, ADD-VANTAGE/MBP- Discard 24 hours after activating; dissolve drug prior to administration. Protect dry powder vial from light., Indication: Other, Specify: otomastoiditis Followed by cefEPime (MAXIPIME) 2,000 mg in sodium chloride 0.9 % 100 mL IVPB-MBPJump to med 2,000 mg, intravenous, at 25 mL/hr, Administer over 4 Hours, Every 8 hours, First dose on [place] 12/27/23 at 2130, ADD-VANTAGE/MBP- Discard 24 hours after activating; dissolve drug prior to administration. Protect dry powder vial from light., Indication: Other, Specify: otomastoiditis Group 2: Consult PICC nurse - Midline (CANCELED) Reason for consult? Insert Midline IV, Indication: Duration of therapy 14 days or less, Number of Lumen(s): 1 Lumen And sodium chloride 0.9 % flush 10 mLJump to med 10 mL, intravenous, Every 12 hours, First dose on Sun12/31/23 at 1145, PICC line. Administer 10 mL per lumen; 10 mL total (for single lumen flush) And sodium chloride 0.9 % flush 10 mLJump to med 10 mL, intravenous, As needed, line care, Starting on Sun12/31/23 at 1136, PICC line. Administer 10 mL to each lumen before and after each use. Administer 10 mL per lumen; 10 mL total (for single lumen flush) And sodium chloride 0.9 % flush 20 mLJump to med 20 mL, intravenous, As needed, line care, Starting on Sun12/31/23 at 1136, PICC line. Administer 20 mL to each lumen after lab draws, blood infusion, and meds known to precipitate. Administer 20 mL per lumen; 20 mL total (for single lumen flush) FOR RECORDS PERTAINING TO PATIENTS WHO ARE OR HAVE BEEN ENROLLED IN A CHEMICAL DEPENDENCY/SUBSTANCEABUSE PROGRAM, SOME INFORMATION MAY BE OMITTED. This clinical summary was aggregated from multiple sources. Caution should be exercised in using it in the provision of clinical care. This summary normalizes information from multiple sources, and as a consequence, information in this document may materially change the coding, format and clinical context of patient data. In addition, data may be omitted in some cases. CLINICAL DECISIONS SHOULD BE BASED ON THE PRIMARY CLINICAL RECORDS. [facility] [employer] [facility]. provides no warranty or guarantee of the accuracy or completeness of information in this document.
--- NOTE | 2024-05-01 10:15 | ECG_ITS ---
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
--- NOTE | 2024-05-01 11:42 | P.GSHP_ITS ---
History of Present Illness History of Present Illness Chief complaint: Left Hydrocele Narrative: Mr. Demetrius Aguila is a pleasant 74-year-old male who presents to presurgical testing with complaints of left testicle enlargement. He has been evaluated by Dr. Roger and is scheduled for left hydrocelectomy on May 15, [address] Roger. Review of Systems ROS Narrative REVIEW OF SYSTEMS: Negative except as stated in HPI, ten or more systems reviewed. Constitutional: No fever, chills, weakness ENT: No sore throat or epistaxis Cardiovascular: No edema, chest pain, palpitations, or activity intolerance Respiratory: No shortness of breath, cough, or wheezing Musculoskeletal: Complains of joint pain and swelling to his hands wrists ankles and knees associated with his osteoarthritis. Gastrointestinal: No abdominal pain, constipation, diarrhea, or vomiting Genitourinary: No dysuria or hematuria Neurological: No numbness, tingling, weakness, or headache Psychiatric: No mood changes PFSH PFSH Medical History (Updated 05/01/24 @ 11:41 by Marie Rios) Presence of tympanostomy tube in tympanic membrane ?Z96.22 - Myringotomy tube(s) status (ICD-10) Otitis externa ?H60.90 - Unspecified otitis externa, unspecified ear (ICD-10) Stress bladder incontinence, male ?N39.3 - Stress incontinence (female) (male) (ICD-10) Nocturia ?R35.1 - Nocturia (ICD-10) Gout ?M10.9 - Gout, unspecified (ICD-10) Hypertension ?I10 - Essential (primary) hypertension (ICD-10) Prostate cancer ?C61 - Malignant neoplasm of prostate (ICD-10) Osteoarthritis ?M19.90 - Unspecified osteoarthritis, unspecified site (ICD-10) Vertigo ?R42 - Dizziness and giddiness (ICD-10) Asthma ?J45.909 - Unspecified asthma, uncomplicated (ICD-10) Seasonal allergies ?J30.2 - Other seasonal allergic rhinitis (ICD-10) Hearing loss ?H91.90 - Unspecified hearing loss, unspecified ear (ICD-10) High cholesterol ?E78.00 - Pure hypercholesterolemia, unspecified (ICD-10) Surgical History (Updated 05/01/24 @ 11:39 by Marie Rios) Hx of colonoscopy ?Z98.890 - Other specified postprocedural states (ICD-10) History of knee replacement procedure of right knee ?Z96.651 - Presence of right artificial knee joint (ICD-10) H/O transurethral resection of prostate ?Z98.890 - Other specified postprocedural states (ICD-10) ?Z90.79 - Acquired absence of other genital organ(s) (ICD-10) History of appendectomy ?Z90.49 - Acquired absence of other specified parts of digestive tract (ICD- 10) Family History (Updated 05/01/24 @ 10:54 by Marie Rios) Other Family history of cancer Family history of coronary artery disease Family history of heart disease Family history of hypertension Family history of myocardial infarction Family history of stroke Social History (Updated 05/01/24 @ 10:47 by Marie Rios) Within the past year, how often did you have a drink containing alcohol: 2-3 times a week Within the past year, how many standard drinks containing alcohol did you have on a typical day: 3 or 4 Smoking status: Former smoker Non-prescribed substance use details: marijuana edibles Previous occupational history: retired Highest level of school completed/degree received: high school graduate Meds Home Medications and Allergies Home Medications ?Medication ?Instructions ?Recorded ?Confirmed ?Type albuterol sulfate 90 mcg/actuation 2 inh inhalation PRN 05/01/24 05/01/24 History aerosol inhaler allopurinol 300 mg tablet 300 mg PO DAILY 05/01/24 05/01/24 History amlodipine 10 mg tablet 10 mg PO DAILY 05/01/24 05/01/24 History aspirin 81 mg chewable tablet 81 mg PO DAILY 05/01/24 05/01/24 History (Children's Aspirin) fluticasone propionate 110 2 inh inhalation PRN only if I 05/01/24 05/01/24 History mcg/actuation HFA aerosol inhaler have a cold I use it in the morning (Flovent HFA) omeprazole 20 mg capsule,delayed 40 mg PO DAILY 05/01/24 05/01/24 History release simvastatin 20 mg tablet 20 mg PO DAILY 05/01/24 05/01/24 History Allergies Allergy/AdvReac Type Severity Reaction Status Date / Time ciprofloxacin (From Cipro) Allergy Mild Rash Verified 05/01/24 10:33 erythromycin base Allergy Mild Rash Verified 05/01/24 10:33 Pork/Porcine Containing Allergy Mild Rash Verified 05/01/24 10:33 Products Exam Narrative Exam Narrative: Constitutional: Awake, alert, comfortable, well-appearing, nontoxic, interactive, vital signs as charted Head: Normocephalic, atraumatic Eyes: Conjunctiva and lids normal to inspection, pupils normal ENT: Tympanic membranes pearly suazo, nonerythematous, noninjected, naris patent, posterior oropharynx clear, oral mucosa moist Neck: Supple, normal appearance, normal range of motion, no meningeal signs, no lymphadenopathy Respiratory: No respiratory distress, breath sounds clear Cardiovascular: Regular rate and rhythm, strong and regular heart tones Abdomen: Nontender, normal bowel sounds, soft, no CVA tenderness Musculoskeletal: Normal gait, mild soft tissue swelling to bilateral second MCP joints Skin: No rashes or induration, no lesions, only visible skin inspected Neuro: No neurological deficits, normal sensation Psychiatric: Oriented ?3, normal affect Genitourinary: Please see detail genitourinary exam per Dr. Roger HPI 03/31/2024 Assessment and Plan Assessment and Plan (1) Personal history of prostate cancer: (2) Stress incontinence: (3) Hydrocele: Plan Patient with diagnosis of left hydrocele and stress incontinence. Patient is scheduled for hydrocelectomy with Dr. Roger on May 15, 2024.
--- NOTE | 2024-05-01 11:47 | XR_ITS ---
The [address] [address] Patient Name: YUE DELGADILLO MRN: [id number] date: 1950 Sex: M Assigned Patient Location: SURGOUT Current Patient Location: [facility] Accession/Order Number: [id number] Exam Date: 05/01/2024 11:40 Report Date: 05/01/2024 22:54 At the request of: MAIA MADDOX Procedure: XR chest 2V EXAM: XR chest 2V HISTORY: Preop exam COMPARISON: 02/26/2015 TECHNIQUE: Upright PA and lateral chest x-ray FINDINGS: The heart is not enlarged and the vasculature is not distended. No acute infiltrate, effusion or pneumothorax is identified. The osseous structures are grossly intact with degenerative changes in the spine. XR/XR chest 2V IMPRESSION: No acute infiltrate or evidence of cardiac decompensation. The overall appearance of the chest is essentially unchanged. Electronically authenticated by: JANAK LO Date: 05/01/2024 22:54
[2024-05-01 11:50] LABS: Basophils Absolute Auto 0.1 10^3/uL (0.0-0.1); Basophils Percent Auto 0.9 % (0.2-2.0); Eosinophils Absolute Auto 0.3 10^3/uL (0.0-0.7); Eosinophils Percent Auto 4.1 % (0.9-7.0); Hematocrit 53.5 % (42.0-54.0); Hemoglobin 18.5 g/dL (14.0-18.0); Immature Granulocytes Abs Auto 0.02 10^3/uL (0.00-0.03); Immature Granulocytes Pct Auto 0.3 % (0.0-0.5); Lymphocytes Absolute Auto 1.2 10^3/uL (1.2-3.8); Lymphocytes Percent Auto 14.6 % (20.5-60.0); Mean Corpuscular HGB Conc 34.6 g/dL (29.9-35.2); Mean Corpuscular Hemoglobin 31.2 pg (25.9-34.0); Mean Corpuscular Volume 90.2 fL (80.0-94.0); Monocytes Absolute Auto 0.7 10^3/uL (0.3-0.8); Monocytes Percent Auto 9.4 % (1.7-12.0); Neutrophils Absolute Auto 5.6 10^3/uL (1.4-6.5); Neutrophils Percent Auto 70.7 % (43.0-75.0); Platelet Count 168 10^3/uL (150-450); Red Blood Count 5.93 10^6/uL (4.70-6.10); Red Cell Distribution Width 13.2 % (11.0-15.0); White Blood Count 7.9 10^3/uL (4.0-11.0)
[2024-05-01 12:02] LABS: Partial Thromboplastin Time 28.2 sec (22.3-36.2); Prothrombin Time 10.6 sec (9.0-11.6)
== END 2024-05-01 09:51 | disposition home or self-care (01) ==
LOC: PST 09:50
PROVIDERS: PCP Internal Medicine; Visit Provider Urology
DX: Z01.810 Encounter for preprocedural cardiovascular examination (principal); Z01.812 Encounter for preprocedural laboratory examination; Z01.818 Encounter for other preprocedural examination; N43.2 Other hydrocele; E78.49 Other hyperlipidemia
CPT/HCPCS: 71046; 80048; 85025; 85610; 85730; 93005; G0463

== ENCOUNTER 2024-05-15 09:04 | Day surgery (SDC) | payer MEDICARE, SELFPAY ==
[2024-05-01 10:47] VITALS: BP 150/83; PULSE 74; TEMP 36.4; O2SAT 95; BMI 31.6
[2024-05-15] VITALS (9 sets, daily range): BP systolic 116–143; BP diastolic 72–102; PULSE 72–83; TEMP 35.9–36.1; O2SAT 90–97; BMI 31.6
[2024-05-15] MEDS: LACTATED RINGER'S SOLUTION 1,000 ML 50 ML IV ×2 (09:38→12:02)
[2024-05-15] MEDS: CEFAZOLIN SODIUM 2 GM/50 ML D5W PREMIX IV (10:35)
[2024-05-15] MEDS: BACITRACIN OINTMENT 28.4 GM TUBE 1 APPLIC TOPICAL (12:25)
--- NOTE | 2024-05-15 12:33 | PM.URSON ---
Urology Surgery Operative Note Operative Note Procedure Date: 05/15/24 Time Out Performed: yes Pre-op Diagnosis: Left hydrocele Post-op Diagnosis: same as pre-op Procedures performed: 1. Left hydrocelectomy Anesthesia: General-LMA Primary Surgeon: Livan Roger Complications: None Estimated blood loss (mL): 10 Findings: Thick, indurated and friable hydrocele sac Specimens: Hydrocele sac Drains: None Indications for Procedures: This gentleman has a chronic large left hydrocele that has been very bothersome for him. He is desirous for hydrocelectomy. He has signed an informed consent after risks were explained. Some of these risks include bleeding, infection, hematoma, recurrence of hydrocele to name a few. Detailed description of Procedure: The patient was brought to the operating room and placed on the operating room table in the supine position. SCDs were placed on his lower extremities and turned on and functioning during the entire case. Timeout was done by all parties in the room. We all agreed upon the patient's identification and the planned procedures for this patient. General anesthesia was then administered via LMA. His genitalia were sterilely prepped and draped in the usual fashion. I started by making a transverse left hemiscrotal incision with a 15 blade scalpel. Sharp dissection was carried down through the scrotal layers until we arrived at a tense blue fluid-filled hydrocele. I bluntly and sharply freed up the attachments of the left hemiscrotal contents to the scrotum and freed up the spermatic cord also. These contents were delivered through the incision. Small bleeders were coagulated with the needle tip Bovie cautery. I then sharply cut into the hydrocele sac and aspirated several 100 cc of straw-colored fluid. The sac was thick indurated and friable. I sharply opened the sac in a cephalad and caudad direction. The edges were tagged with hemostats. I then circumferentially excised the redundant sac with the Bovie cautery. The sac was sent for permanent sections. The edges of the resection were coagulated to maintain perfect hemostasis. The testicle and epididymis appeared viable. We irrigated the testicle and epididymis and the left hemiscrotum. Small bleeders again were coagulated with the Bovie. Once we verified perfect hemostasis the testicle and epididymis and spermatic cord were then placed back into the left hemiscrotum in the proper anatomic orientation. Closure began with 3-0 Vicryl in a running fashion for the dartos layer. The skin was closed with 4-0 Vicryl in a running fashion. Bacitracin ointment was placed over the incision. Sterile fluffs were applied as well as a scrotal support. He was then transferred to a [facility] bed and wheeled to PACU in stable condition.
== END 2024-05-15 14:10 | disposition home or self-care (01) ==
PROVIDERS: PCP Internal Medicine; Visit Provider Urology
PROC: (CPT 55040; principal; 2024-05-15 09:55)
DX: N43.3 Hydrocele, unspecified (principal); E78.5 Hyperlipidemia, unspecified; J45.909 Unspecified asthma, uncomplicated; Z85.46 Personal history of malignant neoplasm of prostate; Z86.718 Personal history of other venous thrombosis and embolism; Z79.01 Long term (current) use of anticoagulants; I10 Essential (primary) hypertension; Z90.79 Acquired absence of other genital organ(s); N39.3 Stress incontinence (female) (male); Z87.891 Personal history of nicotine dependence; K21.9 Gastro-esophageal reflux disease without esophagitis; N40.1 Benign prostatic hyperplasia with lower urinary tract symptoms
CPT/HCPCS: 55040; 36415; 88302; J0131; J0690; J1100; J1171; J1885; J2250; J2371; J2405; J2704; J3010

== ENCOUNTER 2024-05-23 09:53 | Emergency (ER) | payer MEDICARE, SELFPAY ==
[2024-05-23 09:57] VITALS: BP 163/99; PULSE 68; TEMP 36.7; O2SAT 98; BMI 31.6
--- NOTE | 2024-05-23 10:11 | US_ITS ---
The [address] [address] Patient Name: YUE DELGADILLO MRN: [id number] date: 1950 Sex: M Assigned Patient Location: ER Current Patient Location: ER Accession/Order Number: [id number] Exam Date: 05/23/2024 11:27 Report Date: 05/23/2024 11:32 At the request of: SANDEE NAVARRO MD Procedure: US scrotum doppler SCROTAL ULTRASOUND WITH DUPLEX IMAGING CLINICAL DATA: Left scrotal pain and swelling for the past 2 days. Scrotal surgery a week ago. COMPARISON: 04/01/2024 The right testis measures 4.6 x 2.6 x 2.4 cm. The left testis measures 4.4 x 3.1 x 3.4 cm . Testicular echotexture is slightly heterogeneous, greater on the right. No discrete testicular masses are visualized. There is documentation of bilateral duplex and color Doppler testicular blood flow. No epididymal abnormalities are noted. There is a trace amount of fluid around the right testis. On the left, there is a multiseptated fluid collection around the testis with some heterogeneous components. This could be residual of a large hydrocele seen at the time of the prior however superimposed infection and/or hematoma related to surgery is difficult to exclude on the basis of this exam. US/US scrotum doppler IMPRESSION: NO INTRATESTICULAR MASS OR TORSION. COMPLEX COLLECTION WITHIN THE LEFT SCROTAL SAC, DESCRIBED. CLINICAL CORRELATION AND FOLLOW-UP ARE SUGGESTED. Impression dictated by: Cristina Rodriguez M.D.05/23/2024 11:32 AM Dictation Location: [place] [address] Electronically authenticated by: [id number] Y Date: 05/23/2024 11:32
--- NOTE | 2024-05-23 10:14 | ED.GENADUL1 ---
HPI HPI - General Adult General Chief complaint: Urogenital-Male Stated complaint: l TESTICLE PAIN Time Seen by Provider: 05/23/24 10:10 Source: patient Mode of arrival: walk-in Limitations: no limitations History of Present Illness HPI narrative: Patient is a 74-year-old male who is presenting to the ER today with chief complaint of pain and swelling to left testicle. Patient last May 15 had a procedure where a large hydrocele was removed from left testicle by Dr. Roger. Patient has been wearing his compression dressing, using ice. Patient was prescribed Toradol for pain. Patient was feeling okay on Sunday, and then on Sunday patient started having some redness, pain, swelling. Patient went to the office today to see physician dental office assistant Kusum. Patient was examined, and sent to the ER. We did not receive a phone call ahead of time for any patient report. I did call Kusum and discussed patient's case. She has not spoken to the on-call urologist about this patient that Dr. Roger did surgery on last May 15. She recommended blood work, testing, and then called Laura if needed. Patient has no fever or chills. Patient did not have his blood pressure medication this morning. Patient states that he has not taken his blood pressure medicine, he is having some pain, and he is frustrated that he cannot speak to Dr. Roger, and is back in the ER. Patient did have prostate cancer several years ago where his prostate was removed by Dr. Roger. Patient had no complications from that surgery. He is on no blood thinners, he is currently on no antibiotics. is at bedside. All systems are negative except as noted/marked. All systems reviewed and otherwise negative. Nurses note and vital signs reviewed and patient is not hypoxic. General: The patient appears well and in no apparent distress. Patient is resting comfortably on cart. Patient is not toxic, lethargic, or listless Skin: Warm, dry, no pallor noted. There is no rash noted. No petechiae, purpura. Head: Normocephalic, atraumatic Eye: Normal conjunctiva, no drainage, EOMI. PERRL Ears, Nose, Mouth, and Throat: oral mucosa is moist. Nares patent. Mouth without vesicles. Cardiovascular: Regular Rate and Rhythm, no murmur, gallop, rub Respiratory: Patient is in no distress, no accessory muscle use, lungs are clear to auscultation, no wheezing, rales or rhonchi Back: non-tender, no CVA tenderness bilaterally to percussion. No CT LS midline pain GI: no tenderness to palpation, no masses appreciated. No rebound, guarding, or rigidity noted. No distention : Patient surgical incision is clean, dry, intact. Patient is circumcised. Patient has no tenderness palpation to right testicle. Patient left testicle is swollen, moderate to severe tenderness to palpation, there is some mild redness to the scrotum. No crepitus. No signs of redness cellulitis or crepitus or infection to bilateral inguinal area, or any other perineal area besides the skin of the scrotum. Patient's shaft of his penis is not swollen, no swelling to the foreskin, glans is within normal limits. Patient's had no urinary frequency urgency or burning. No drainage. Difficult to get a good exam on the left testicle secondary to swelling and pain. Musculoskeletal: Patient has full range of motion of all of the extremities, no motor, sensory, or focal neurological deficits Neurological: A&O x4, normal speech Psychiatric: Cooperative Related Data Home Medications ?Medication ?Instructions ?Recorded ?Confirmed albuterol sulfate 90 mcg/actuation 2 inh inhalation PRN 05/01/24 05/15/24 aerosol inhaler allopurinol 300 mg tablet 300 mg PO DAILY 05/01/24 05/15/24 amlodipine 10 mg tablet 10 mg PO DAILY 05/01/24 05/15/24 aspirin 81 mg chewable tablet 81 mg PO DAILY 05/01/24 05/15/24 (Children's Aspirin) fluticasone propionate 110 2 inh inhalation PRN only if I 05/01/24 05/15/24 mcg/actuation HFA aerosol inhaler have a cold I use it in the morning (Flovent HFA) omeprazole 20 mg capsule,delayed 40 mg PO DAILY 05/01/24 05/15/24 release simvastatin 20 mg tablet 20 mg PO DAILY 05/01/24 05/15/24 Previous Rx's ?Medication ?Instructions ?Recorded ketorolac 10 mg tablet 10 mg PO .q12 PRN pain 3 days #6 05/15/24 tabs doxycycline hyclate 100 mg tablet 100 mg PO BID 10 days #20 tabs 05/23/24 hydrocodone 5 mg-acetaminophen 325 1 tab PO Q4H PRN pain #10 tabs 05/23/24 mg tablet sulfamethoxazole 800 1 tab PO BID 7 days #14 tabs 05/23/24 mg-trimethoprim 160 mg tablet (Bactrim DS) Allergies Allergy/AdvReac Type Severity Reaction Status Date / Time ciprofloxacin (From Cipro) Allergy Mild Rash Verified 05/01/24 10:33 erythromycin base Allergy Mild Rash Verified 05/01/24 10:33 Pork/Porcine Containing Allergy Mild Rash Verified 05/01/24 10:33 Products Opioid HPI Opioid Management Most Recent Opioid Data: Last Pain Scale 7 05/23/24 10:39 05/23/24 Last MAR Pain Assessment 05/23/24 10:39 PFSH PFSH Medical History (Updated 05/23/24 @ 12:21 by Yo Larson MD) Presence of tympanostomy tube in tympanic membrane ?Z96.22 - Myringotomy tube(s) status (ICD-10) Otitis externa ?H60.90 - Unspecified otitis externa, unspecified ear (ICD-10) Stress bladder incontinence, male ?N39.3 - Stress incontinence (female) (male) (ICD-10) Nocturia ?R35.1 - Nocturia (ICD-10) Gout ?M10.9 - Gout, unspecified (ICD-10) Hypertension ?I10 - Essential (primary) hypertension (ICD-10) Prostate cancer ?C61 - Malignant neoplasm of prostate (ICD-10) Osteoarthritis ?M19.90 - Unspecified osteoarthritis, unspecified site (ICD-10) Vertigo ?R42 - Dizziness and giddiness (ICD-10) Asthma ?J45.909 - Unspecified asthma, uncomplicated (ICD-10) Seasonal allergies ?J30.2 - Other seasonal allergic rhinitis (ICD-10) Hearing loss ?H91.90 - Unspecified hearing loss, unspecified ear (ICD-10) High cholesterol ?E78.00 - Pure hypercholesterolemia, unspecified (ICD-10) Surgical History (Updated 05/15/24 @ 09:40 by Elizabeth Garcia) History of tympanoplasty of right ear ?Z98.890 - Other specified postprocedural states (ICD-10) Hx of colonoscopy ?Z98.890 - Other specified postprocedural states (ICD-10) History of knee replacement procedure of right knee ?Z96.651 - Presence of right artificial knee joint (ICD-10) H/O transurethral resection of prostate ?Z98.890 - Other specified postprocedural states (ICD-10) ?Z90.79 - Acquired absence of other genital organ(s) (ICD-10) History of appendectomy ?Z90.49 - Acquired absence of other specified parts of digestive tract (ICD-10) Family History (Updated 05/01/24 @ 10:54 by Marie Rios) Other Family history of cancer Family history of coronary artery disease Family history of heart disease Family history of hypertension Family history of myocardial infarction Family history of stroke Social History (Updated 05/15/24 @ 09:21 by Elizabeth Garcia) Within the past year, how often did you have a drink containing alcohol: 2-3 times a week Within the past year, how many standard drinks containing alcohol did you have on a typical day: 3 or 4 Smoking status: Former smoker Non-prescribed substance use: denies use Non-prescribed substance use details: marijuana edibles Previous occupational history: retired Highest level of school completed/degree received: high school graduate Little interest or pleasure in doing things: not at all Feeling down, depressed, or hopeless: not at all Exam Constitutional Vital Signs, click to edit/add: Last Vital Signs Temp 98.0 F 05/23/24 09:57 Pulse 68 05/23/24 09:57 Resp 18 05/23/24 09:57 BP 163/99 H 05/23/24 09:57 Pulse Ox 98 05/23/24 09:57 Course Vital Signs Vital signs: Vital Signs Temperature 98.0 F 05/23/24 09:57 Pulse Rate 68 05/23/24 09:57 Respiratory Rate 18 05/23/24 09:57 Blood Pressure 163/99 H 05/23/24 09:57 Pulse Oximetry 98 05/23/24 09:57 Temperature 98.0 F 05/23/24 09:57 Pulse Rate 68 05/23/24 09:57 Respiratory Rate 18 05/23/24 09:57 Blood Pressure 163/99 H 05/23/24 09:57 Pulse Oximetry 98 05/23/24 09:57 Medical Decision Making MDM Narrative Medical decision making narrative: 1011 patient was sent to the ER from the urology office. Patient saw PA, they took his weight, vital signs, and patient was sent to the ER. I then called the office and spoke to Kusum the physician dental office assistant. She did not call ahead to give report. She stated that she looked at his testicles, they were red, swollen, concern for infection. She did not speak to the urologist prior to patient coming to the ER. Kusum told the patient to go to the ER, we did not receive a call ahead of pt arrival. She wanted the emergency room to evaluate the patient and contact urology if needed. [address] I have spoken to Dr. Perales and he stated there is nothing acute or surgical. He recommended doxycycline or Bactrim. Patient pain will be reassessed. Patient did not want to be admitted to the hospital. Patient's pain has improved. Patient understands instructions of continue to ice, wear compression shorts, and also patient was prescribed doxycycline and Bactrim as recommended by Dr. Swartz. Patient does not have an allergy to sulfa. I did call Kusum the physician dental office assistant from the urology office and we were able to make an appointment for 1130 on Sunday for the patient to be reevaluated by Dr. Roger. Patient was sent home with [place], and prescriptions for [place], doxycycline, Bactrim. Patient was thankful for help. Patient understands return if redness worsens, significant pain, intractable nausea, vomiting, fever, or any other acute complaints. Patient was given the option to be admitted to the hospital for IV antibiotics, pain control, but patient wanted to go home if there is no surgical intervention is go to be done today which Dr. Ford stated there would not be. Patient was given his first dose of IV doxycycline and Bactrim in the ER. Lab Data Lab results reviewed: Yes I reviewed the patient's lab results Labs: Lab Results 05/23/24 05/23/24 05/23/24 Range/Units 10:20 10:37 13:33 WBC 6.8 (4.0-11.0) 10^3/uL RBC 5.63 (4.70-6.10) 10^6/uL Hgb 17.6 (14.0-18.0) g/dL Hct 50.9 (42.0-54.0) % MCV 90.4 (80.0-94.0) fL MCH 31.3 (25.9-34.0) pg MCHC 34.6 (29.9-35.2) g/dL RDW 13.2 (11.0-15.0) % Plt Count 158 (150-450) 10^3/uL MPV 9.8 (9.5-13.5) fL Neut % (Auto) 72.4 (43.0-75.0) % Lymph % (Auto) 14.4 L (20.5-60.0) % [place] % (Auto) 9.4 (1.7-12.0) % Eos % (Auto) 2.7 (0.9-7.0) % Baso % (Auto) 0.7 (0.2-2.0) % Neut # (Auto) 4.9 (1.4-6.5) 10^3/uL Lymph # (Auto) 1.0 L (1.2-3.8) 10^3/uL Stearns # (Auto) 0.6 (0.3-0.8) 10^3/uL Eos # (Auto) 0.2 (0.0-0.7) 10^3/uL Baso # (Auto) 0.1 (0.0-0.1) 10^3/uL Abs Immat Gran (auto) 0.03 (0.00-0.03) 10^3/uL Imm/Tot Granulo (auto) 0.4 (0.0-0.5) % Sodium 139 (136-145) mmol/L Potassium 3.9 (3.5-5.1) mmol/L Chloride 103 (98-107) mmol/L Carbon Dioxide 26.5 (21.0-32.0) mmol/L Anion Gap 13.4 BUN 12.0 (7.0-18.0) mg/dL Creatinine 1.16 (0.70-1.30) mg/dL Est GFR ( Amer) >60 (>=60 mL/min/1.73m^2) Est GFR (Non-Af Amer) >60 (>=60 mL/min/1.73m^2) BUN/Creatinine Ratio 10.3 Glucose 100 (74-106) mg/dL Lactate 1.0 0.8 (0.4-2.0) mmol/L Calcium 9.7 (8.5-10.1) mg/dL Urine Color Lt. yellow (YELLOW) Urine Clarity Clear (CLEAR) Urine pH 6.0 (5.0-9.0) Ur Specific [place] 1.010 (1.005-1.025) Urine Protein Negative (NEG/TRACE) mg/dL Urine Glucose (UA) Negative (NEGATIVE) mg/dL Urine Ketones Negative (NEGATIVE) mg/dL Urine Occult Blood Negative (NEGATIVE) Urine Nitrite Negative (NEGATIVE) Urine Bilirubin Negative (NEGATIVE) Urine Urobilinogen 0.2 (0.2-1.0) EU/dL Ur Leukocyte Esterase Negative (NEGATIVE) Urine RBC None seen (0-2) #/HPF Urine WBC None seen (NONE SEEN) #/HPF Ur Squamous Epith Cells Rare (NONE/RARE) #/LPF Urine Crystals None seen (None Seen) #/HPF Urine Bacteria Trace A (NONE SEEN) #/HPF Urine Casts None seen (NONE SEEN) #/LPF Urine Mucus None seen (NONE SEEN) Ur Culture Indicated? No Imaging Data CT scan - pelvis: Radiologist's impression: ITS Impressions Scrotum Ultrasound 05/23/24 10:11 IMPRESSION: NO INTRATESTICULAR MASS OR TORSION. COMPLEX COLLECTION WITHIN THE LEFT SCROTAL SAC, DESCRIBED. CLINICAL CORRELATION AND FOLLOW-UP ARE SUGGESTED. Impression dictated by: Cristina Rodriguez M.D.05/23/2024 11:32 AM Dictation Location: [place] [address] Electronically authenticated by: [id number] Y Date: 05/23/2024 11:32 Discharge Plan Discharge Chief Complaint: Urogenital-Male Clinical Impression: Left testicular pain, Swelling of left half of scrotum Patient Disposition: Home, Self-Care Condition: Fair Prescriptions / Home Meds: New hydrocodone-acetaminophen 5-325 mg tablet 1 tab PO Q4H PRN (Reason: pain) Qty: 10 0RF sulfamethoxazole-trimethoprim [Bactrim DS] 800-160 mg tablet 1 tab PO BID 7 Days Qty: 14 0RF doxycycline hyclate 100 mg tablet 100 mg PO BID 10 Days Qty: 20 0RF No Action simvastatin 20 mg tablet 20 mg PO DAILY amlodipine 10 mg tablet 10 mg PO DAILY omeprazole 20 mg capsule,delayed release(DR/EC) 40 mg PO DAILY allopurinol 300 mg tablet 300 mg PO DAILY aspirin [Children's Aspirin] 81 mg tablet,chewable 81 mg PO DAILY albuterol sulfate 90 mcg/actuation HFA aerosol inhaler 2 inh INHALATION PRN fluticasone propionate [Flovent HFA] 110 mcg/actuation HFA aerosol inhaler 2 inh inhalation PRN ketorolac 10 mg tablet 10 mg PO .q12 PRN (Reason: pain) 3 Days Qty: 6 0RF Print Language: Arabic Instructions: Testicle Pain (ED), Scrotal Pain (ED) Additional Instructions: Continue ice 20 minutes on, 20 minutes off. Take both antibiotics until you follow-up with Dr. Roger in the office, call today to confirm your appointment or go to the office after your discharge to confirm appointment next week Alternate Tylenol and either Motrin, Advil, or ibuprofen every 4 hours to help with pain. If you are having severe pain, substitute a [place] tablet instead of Tylenol. Do not take Tylenol and [place] at the same time, you may actually take too much Tylenol at 1 setting or in 1 day. Maximum Tylenol dose of Tylenol is 3000 mg a day. Maximum dose of either Motrin, Advil, or ibuprofen is 2400 mg a day. [place] could cause constipation, be cautious of side effects. Referrals: BRIANNA BRUNNER [Primary Care Provider] - 1 week Discharge Date/Time: 05/23/24 14:09
[2024-05-23] MEDS: ONDANSETRON PF 4 MG/2 ML VIAL IV (10:39)
[2024-05-23] MEDS: MORPHINE SULFATE 4 MG/ML VIAL IV (10:39)
[2024-05-23 10:55] LABS: Basophils Absolute Auto 0.1 10^3/uL (0.0-0.1); Basophils Percent Auto 0.7 % (0.2-2.0); Eosinophils Absolute Auto 0.2 10^3/uL (0.0-0.7); Eosinophils Percent Auto 2.7 % (0.9-7.0); Hematocrit 50.9 % (42.0-54.0); Hemoglobin 17.6 g/dL (14.0-18.0); Immature Granulocytes Abs Auto 0.03 10^3/uL (0.00-0.03); Immature Granulocytes Pct Auto 0.4 % (0.0-0.5); Lymphocytes Percent Auto 14.4 % (20.5-60.0); Mean Corpuscular HGB Conc 34.6 g/dL (29.9-35.2); Mean Corpuscular Hemoglobin 31.3 pg (25.9-34.0); Mean Corpuscular Volume 90.4 fL (80.0-94.0); Mean Platelet Volume 9.8 fL (9.5-13.5); Monocytes Absolute Auto 0.6 10^3/uL (0.3-0.8); Monocytes Percent Auto 9.4 % (1.7-12.0); Neutrophils Absolute Auto 4.9 10^3/uL (1.4-6.5); Neutrophils Percent Auto 72.4 % (43.0-75.0); Platelet Count 158 10^3/uL (150-450); Red Blood Count 5.63 10^6/uL (4.70-6.10); Red Cell Distribution Width 13.2 % (11.0-15.0); White Blood Count 6.8 10^3/uL (4.0-11.0)
[2024-05-23 11:06] LABS: Anion Gap 13.4; BUN Creatinine Ratio 10.3; Calcium 9.7 mg/dL (8.5-10.1); Carbon Dioxide 26.5 mmol/L (21.0-32.0); Chloride 103 mmol/L (98-107); Estimated GFR (African America >60 (>=60 mL/min/1.73m^2); Estimated GFR (Non-African Ame >60 (>=60 mL/min/1.73m^2); Glucose 100 mg/dL (74-106); Potassium 3.9 mmol/L (3.5-5.1); Sodium 139 mmol/L (136-145)
[2024-05-23 12:06] LABS: Bilirubin Urine NEGATIVE (NEGATIVE); Blood Urine NEGATIVE (NEGATIVE); Clarity Urine CLEAR (CLEAR); Color Urine LT. YELLOW (YELLOW); Glucose Urine UA NEGATIVE (NEGATIVE); Ketones Urine NEGATIVE (NEGATIVE); Leukocyte Esterase Urine NEGATIVE (NEGATIVE); Nitrite Urine NEGATIVE (NEGATIVE); Protein Urine NEGATIVE (NEG/TRACE); Urobilinogen Urine 0.2 EU/dL (0.2-1.0)
[2024-05-23] MEDS: DOXYCYCLINE HYCLATE 100 MG in 0.9 % SODIUM CHLORIDE 100 ML IV (12:35)
[2024-05-23] MEDS: SULFAMETHOXAZOLE/TRIMETHOPRIM 800-160 MG TABLET 1 TAB PO (12:37)
[2024-05-23 12:38] LABS: Bacteria Urine TRACE #/HPF (NONE SEEN); Cast Seen? NONE SEEN #/LPF (NONE SEEN); Crystals Seen? None Seen #/HPF (None Seen); Mucus Urine NONE SEEN (NONE SEEN); RBC Urine NONE SEEN #/HPF (0-2); Squamous Epithelial Cell Urine RARE #/LPF (NONE/RARE); WBC Urine NONE SEEN #/HPF (NONE SEEN)
[2024-05-23 12:39] LABS: Urine Culture Indicated NO
--- NOTE | 2024-05-23 12:40 | PC.NURSE ---
Appointment made for [facility] for Sunday05/26/24 at 11:30 in [place] office. Patient aware and appointment date and time on discharge papers.
[2024-05-23 14:26] LABS: Lactate/Lactic Acid 0.8 mmol/L (0.4-2.0)
== END 2024-05-23 14:09 | disposition home or self-care (01) ==
PROVIDERS: Emergency Provider Emergency Medicine; PCP Internal Medicine
DX: N50.812 Left testicular pain (principal); N50.89 Other specified disorders of the male genital organs; Z98.890 Other specified postprocedural states; Z85.46 Personal history of malignant neoplasm of prostate; Z96.651 Presence of right artificial knee joint; Z90.49 Acquired absence of other specified parts of digestive tract; Z87.891 Personal history of nicotine dependence
CPT/HCPCS: 36415; 76870; 80048; 81001; 83605; 85025; 87040; 93976; 96365; 96375; 99284; J2270; J2405

== ENCOUNTER 2025-03-23 09:30 | Outpatient (OUT) | payer MEDICARE, SELFPAY ==
--- OUTSIDE RECORDS SUMMARY | 2025-03-23 09:36 | XMS_ITS | Clinical Summary ---
Author Organization [facility] Address [address] [place] [address] Care Team Providers Care Ore Dryer Name Role Phone Unavailable Primary Care Provider Unavailabl e Allergies Active AllergyReactionsCriticalityNoted WxdlAeuvavthFsvpljuaagn17/22/2013 XzjhyqcsuurhwMelculx65/16/8829Whpjiee20/22/2013 Unsure of reaction KnojlapmyvjhXcjvk21/22/2013 And anxiousness GxfznvlTfsbj57/22/9272DskhaxzwdmXpqzscjm47/23/3487Skwzjjedr82/13/2018 Other Reaction(s): GI Disturbance WefncJtlac75/13/2021 If he eats 2 days in a row Sulfa JjiorlwptkiNiiidow94/16/4043Balvjswzqxu86/22/2013 Medications MedicationSigDispense QuantityRefillsLast FilledStart DateEnd DateStatus simvastatin (Zocor) 20 MG tablet Take 20 mg by mouthActive omeprazole (PriLOSEC) [address] capsule Take 20 mg by mouthActive ketoconazole (NIZOral) 2 % shampoo Apply bmgguprph33/23/2022ctive fluocinonide (Lidex) 0.05 % external solution Apply topically every 12 (twelve) hours06/15/2021ctive aspirin 81 MG EC tablet Take by mouth 1 (one) time each day at the same time05/20/2019Active amLODIPine (Norvasc) 10 MG tablet Take 10 mg by mouthActive allopurinol (Zyloprim) 300 MG tablet Take 300 mg by mouthActive albuterol HFA 90 mcg/act inhaler Inhale 2 puffs every 6 (six) hours if neededActive chlorhexidine (Peridex) 0.12 % solution 01/31/2023ctive Ferrous Sulfate (IRON PO) Take 1 tablet by mouth in the morning.Active fluticasone (Flovent) 110 MCG/ACT inhaler Inhale 2 puffs in the morning.05/22/2023ctive hydroCHLOROthiazide (HYDRODiuril) 25 MG tablet Take 25 mg by mouth in the morning.Active therapeutic multivitamin-minerals (Theragran-M) tablet Take 1 tablet by mouth DailyActive omega-3 (fish oil) 1000 MG capsule Take 1,200 mg by mouth in the morning.Active Active Problems No known active problems Social History Tobacco UseTypesPacks/DayYears UsedDateSmoking Tobacco: NeverSmokeless Tobacco: Never Tobacco Cessation:Counseling Given: No Alcohol UseStandard Drinks/WeekCommentsDefer0 (1 standard drink = 0.6 oz pure alcohol)Sex and Gender InformationValueDate RecordedSex Assigned at BirthNot on fileLegal CenNvlh3706/07/2022 9:49 PM EDTGender IdentityNot on fileSexual OrientationNot on file Last Filed Vital Signs Vital SignReadingTime TakenCommentsBlood Ootjzhnf275/9305/20/2019 12:00 PM EST Pulse--Temperature--Respiratory Rate--Oxygen Saturation--Inhaled Oxygen Concentration--Kmkdnv11.3 kg (210 lb)05/20/2019 12:00 PM WVJBqhfgj219.8 cm (5' 10 )07/19/2022 12:00 PM EDTBody Mass Index30.13005/20/2019 12:00 PM EST Plan of Treatment DateTypeDepartmentCare Team (Latest Contact Info)Weefyinlhsz99/30/2026 10:05 AM EDTOffice Visit [facility] [address] [place] [id number] Linda Marks APRN-ELECTRIC HOIST OPERATOR [address] [place] [address] Health MaintenanceDue DateLast DoneCommentsCT Fadykuqaqvmi94/16/1952FIT-DNA 1951FIT1950FOBT1950 9531Rvnxesfxxqqxf02/16/1952Influenza Vaccine (#1), 01/03/2023, 02/07/2022, Additional history exists Yecscgqbdti73/29/842664/3Colorectal Cancer Ezegzplko52/29/2033Pneumococcal Vaccine: 65+ PrdpbNcyhcadkq67/16/2018, 03/09/2016 Insurance
--- OUTSIDE RECORDS SUMMARY | 2025-03-23 09:36 | XMS_ITS | Patient Health Record ---
Author Organization [facility] Address [address] [place] [address] Care Team Providers Care Junior Web Designer Name Role Phone DOUG ACEVES Unavailable [phone] Reason For Referral No Information Immunizations Vaccine Route Administration Date Status Comme nts TDAP IM Intramuscular 01/29/2017 Administered Plan Of Treatment No Information
--- OUTSIDE RECORDS SUMMARY | 2025-03-23 09:36 | XMS_ITS | Clinical Summary ---
Author Organization [facility] [employer] [facility] Address [facility] [id number] [address] [place] [address] Care Team Providers Care String Laster Name Role Phone Luiz Charles MD Primary Care Provider [phone] Allergies Active AllergyReactionsCriticalityNoted EbiuXyxaagzcMolabeqyqhbtfNezxm23/25/2017 Jyuatvx7411/17/2016 Unsure of reaction ZlsqheosgzljWdhif96/25/2017 And anxiousness QrojrzuCpxnm90/25/6956TfmpqbvcufGqmewxrf08/23/2013MeloxicamGI Disturbance 11/05/2017Pork Derived (Porcine)Hives07/06/2020 If he eats 2 days in a row Sulfa (Sulfonamide Antibiotics)Hives11/17/2016 Medications MedicationSigDispense QuantityRefillsLast FilledStart DateEnd DateStatus omega-3 fatty acids-fish oil 300-1,000 mg capsule Take 1,200 mg by mouth in the morning.Active gwypesvg-vvss-IB-calcium &mins (THERAGRAN-M) 9 mg iron-400 mcg tablet Take 1 tablet by mouth in the morning.Active aspirin 81 mg Take 1 tablet (81 mg total) by mouth in the morning.Active fluticasone propionate (FLOVENT HFA) 110 mcg/actuation inhaler Inhale 2 puffs once daily. Patient only takes when sick 12 g ctive albuterol (PROVENTIL HFA;VENTOLIN HFA) 90 mcg/actuation inhaler Inhale 2 puffs every 6 (six) hours as needed for wheezing. 18 g 01/06/2024ctive simvastatin (ZOCOR) 20 mg tablet Take 1 tablet (20 mg total) by mouth in the morning. 90 tablet 5Active allopurinoL (ZYLOPRIM) 300 mg tablet Take 1 tablet (300 mg total) by mouth in the morning. 90 tablet 5Active omeprazole (PriLOSEC) 20 mg capsule Take 2 capsules (40 mg total) by mouth in the morning. 180 capsule 5Active amLODIPine (NORVASC) 10 mg tablet Take 1 tablet (10 mg total) by mouth in the morning. 90 tablet 5Active hydrOXYzine (ATARAX) 25 mg tablet Indications:UrticariaTake 1 tablet (25 mg total) by mouth 3 (three) times a day as needed for itching. 30 tablet 5Active cefDINIR (OMNICEF) 300 mg capsule Take 1 capsule (300 mg total) by mouth in the morning and 1 capsule (300 mg total) before bedtime. Do all this for 7 days. 14 capsule Expired Active Problems ProblemNoted DateDiagnosed DateMastoiditis of right side12/26/2023rostate qogbew6604/08/20217743Fkwppdt12/19/2018Essential ytjvkyehpcdz78/19/2558Oozz69/19/2018 GERD (gastroesophageal reflux disease)05/14/2017Asthma in adult, mild persistent, xwalsjstxtjlr14/19/6865Sdqiwzkycrpepg34/19/2018 Encounters DateTypeDepartmentCare VqlxPseqitptxuv64/04/2025Telephone [facility] [address] [place] [address] Ashley Lucas RMA 02/02/2025 2:45 PM ESTOffice Visit [facility] [address] [place] [address] Jesus Arana MD Sensation of fullness in right ear (Primary Dx); Tinnitus, bilateral; Mixed conductive and 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; Sensorineural hearing loss (SNHL) of left ear with restricted hearing of right ear02/02/2025 1:30 PM ESTClinical Support [facility] [address] [place] [address] Sensation of fullness in right ear (Primary Dx); Tinnitus, bilateral; Mixed conductive and 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; Sensorineural hearing loss (SNHL) of left ear with restricted hearing of right ear02/02/2025Orders Only [facility] [address] [place] [address] External, Scanning Provider 02/02/20252507Cnfltb20/10/2025Telephone [facility] [address] [place] [address] Jesus Arana MD 01/08/2025Refill [facility] [address] [facility] [address] [place] [address] Luiz Charles MD Urticaria (Primary Dx)from Last 3 Months Immunizations ImmunizationAdministration DatesNext DueCOVID-19, mRNA, LNP-S, PF, 100mcg/0.5mL Dose05/31/2020OVID-19, mRNA, LNP-S, PF, 30mcg/0.3mL Dose01/14/2021,06/18/2020, 05/27/2020ovid-19, Mrna, Lnp-s, Bivalent, Pf, 30mcg/0.3 ml02/07/2022ovid-19, Mrna, Lnp-s, Pf, 30 Mcg/0.3 Ml Dose, Lam-xyevkot3110/25/2021ovid-19,mrna, Lnp-s, Pf, 50mcg/0.5ml 12+ Lgexoaip44/10/2023Influenza (IM) Preservative Free12/31/2023 Influenza High Dose Preservative Free IM01/14/2020,01/13/2019,01/08/2018, 01/29/2017Influenza, High-dose, Zvhtyhsldhcb82/11/2023,02/07/2022,01/14/2021 Influenza, Yfgolqwrncs18/,01/25/2015,01/08/2014Pneumococcal Conjugate 13-Sccgor7303/09/2016Pneumococcal Mrzraljypgwdta95/16/2018RSV, bivalent, protein subunit RSVpreF, diluent reconstituted, 0.5 mL, PF01/03/2023Tdap11/19/2012Zoster Live01/31/2013Zoster Vaccine Rnqzewvzvzz15/11/2023,06/23/2018,03/06/2018 Family History Medical HistoryRelationNameCommentsHeart diseaseFatherCarl Trinity HealthAsthmaMother Maddie [facility]'s diseaseMotherMary Carisa CraigRelationNameStatus CommentsFatherCarl Oni [facility] Carisa Craig Social History Tobacco UseTypesPacks/DayYears UsedDateSmoking Tobacco: FormerCigarettes Smokeless Tobacco: Never Tobacco Cessation:Counseling Given: Not Answered Alcohol UseStandard Drinks/WeekCommentsYes6 (1 standard drink = 0.6 oz pure alcohol)[facility] UtilitiesAnswerDate RecordedIn the past 12 months has the [employer], gas, oil, or water [employer] threatened to shut off services in your home?No 12/26/2023Social Connection and Isolation PanelAnswerDate RecordedIn a typical week, how many times do you talk on the phone with family, friends, or neighbors?More than three times a week05/03/2020How often do you get together with friends or relatives?Twice a week05/03/2020How often do you attend religion or oriental orthodox services?1 to 4 times per year1Do you belong to any clubs or organizations such as religion groups, unions, fraternal or athletic groups, or school groups?Yes05/03/2020How often do you attend meetings of the clubs or organizations you belong to?1 to 4 times per year05/03/2020re you , , , , never , or living with a partner? 05/03/2020UDIT-CAnswerDate RecordedQ1: How often do you have a drink containing alcohol?4 or more times a week12/26/2023Q2: How many drinks containing alcohol do you have on a typical day when you are drinking?1 or Q3: How often do you have six or more drinks on one occasion?Less than pqsizib5212/26/2023 Overall Financial Resource Strain (CARDIA)AnswerDate RecordedHow hard is it for you to pay for the very basics like food, housing, medical care, and heating?Not very hard05/03/2020HQ-2AnswerDate RecordedTotal Bdigs047Fincentral valley medical center [place] of Occupational Health - Occupational Stress QuestionnaireAnswerDate RecordedDo you feel stress - tense, restless, nervous, or anxious, or unable to sleep at night because yourmind is troubled all the time - these days?Not at all 05/03/2020xercise Vital SignAnswerDate RecordedOn average, how many days per week do you engage in moderate to strenuous exercise (like a brisk walk)?6 days 05/03/2020On average, how many minutes do you engage in exercise at this level? 40 min05/03/2020RAPARE - TransportationAnswerDate RecordedIn the past 12 months, has lack of transportation kept you from medical appointments or from getting medications?No12/26/2023In the past 12 months, has lack of transportation kept you from meetings, work, or from getting things needed for daily living?No12/26/2023Housing InstabilityAnswerDate RecordedAre you worried or concerned that in the next two months you may not have stable housing that you own, rent or stay in as a part of a household?No12/26/2023hildcareAnswer Date RecordedDo problems getting child psychiatrist make it difficult for you to work or study?No05/03/2020mploymentAnswerDate RecordedDo you need help finding a local career center and/or a training program?No05/03/2020Hunger ScreeningAnswerDate RecordedWithin the past 12 months we worried whether our food would run out before we got money to buy more.Never True12/26/2023Within the past 12 months the food we bought just didn't last and we didn't have money to get more.Never True12/26/2023urpose - LifeAnswerDate RecordedI have a purpose and direction in my life.Strongly Agree05/03/2020ducationAnswerDate RecordedWhat is the highest level of school you have completed or the highest degree you have received? Associate degree: occupational, technical, or vocational clutdih9205/03/2020ex and Gender InformationValueDate RecordedSex Assigned at BirthNot on fileLegal XwrBsih8910/27/2014 9:40 PM EDTGender IdentityNot on fileSexual OrientationNot on file Last Filed Vital Signs Vital SignReadingTime TakenCommentsBlood Lkihtgqb878/9008 11:17 AM EDT Egsuj845510/27/2024 11:17 AM ZWGQzekfcqutny84.6 ??C (97.9 ??F)02/02/2025 1:56 PM ESTRespiratory Lqwz642907/29/2024 9:03 AM EDTOxygen Aqjhzkywjo96%12/31/2023 11:36 AM EDTInhaled Oxygen Concentration--Cximjs98.6 kg (208 lb 9.6 oz)02/02/2025 1:56 PM WJRVsdnbr758.3 cm (5' 9 )02/02/2025 1:56 PM ESTBody Mass Index30.811 1:56 PM EST Plan of Treatment DateTypeDepartmentCare Team (Latest Contact Info)Xwbshgvpkxd90/11/2026 9:00 AM ESTOffice Visit [facility] [address] [place] [address] Luiz Charles MD [address] [place] [address], [address] [place] [address] 05/26/2025 11:30 AM ESTClinical Support [facility] [address] [place] [address] 05/26/2025 12:45 PM ESTOffice Visit [facility] [address] [place] [address] Jesus Arana MD [address] [place] [address] [address] [place] [address] 07/28/2025 9:45 AM EDTOffice Visit [facility] [address] [facility] [place] [address] Jesus Arana MD [address] [facility] [address] [place] [address] Health MaintenanceDue DateLast DoneCommentsAdult BMI Follow Up Plan1969 Abdominal Aortic Aneurysm (AAA) Pntdjj4204/10/2016COVID-19 Vaccine ( season), 02/07/2022, 10/25/2021, Additional history exists Influenza Zruruvb97/09/2023, 01/03/2023, 02/07/2022, Additional history existsDepression Nbtfcandd48/08/2024Fall Risk Screening /08/2024Medicare Annual Wellness Visit/08/2024, 04/23/2023, 04/19/2022, Additional history existsTobacco Chnvubosh19/04/2026 10/27/2024dult BMI Zqimqovcd11DTaP,Tdap and Td Vaccines (3 - Td or Tdap), 11/19/20123165Ytkkzqosifs20, 02/21/2023, 07/07/2010RSV ( or age 60+ yrs)Rkapiolqh62/11/2023Zoster (Shingles) BnogralNkrpgvezv81/11/2023, 06/23/2018, 03/06/2018, Additional history exists Medical Devices Not on file Procedures Procedure NamePriorityDate/TimeAssociated DiagnosisCommentsCOMPREHENSIVE HEARING HNHJHlzqwll63/10/2025 1:45 PM ESTPROVATION QMBDTMKHXAAOcgzzdi40/29/2023 7:33 AM EST from Last 3 Months or Most Recently Relevant to Health Maintenance Results * Comprehensive hearing test (02/02/2025 1:45 PM EST) Narrative Authorizing ProviderResult TypeResult StatusScanning Provider ExternalAUDIOLOGY SERVICES ORDERABLESFinal ResultPerforming OrganizationAddressCity/State/ZIP Code Phone Number MANUALLY TRANSCRIBED RESULTS * Colonoscopy Report (02/21/2023 7:33 AM EST)Specimen (Source)Anatomical Location / LateralityCollection Method / VolumeCollection TimeReceived Time Narrative SYSTEMGENERATED, DOCUMENTATION - 02/21/2023 7:33 AM EST This order has been auto-finalized for image and report archival in PACs. *For full report details, please reach out to your physician. ??This image is visible to you in MyChart.* Authorizing ProviderResult TypeResult StatusMennatryan Ureña MDIMG OR IMG ORDERABLESFinal Result from Last 3 Months or Most Recently Relevant to Health Maintenance Insurance Advance Directives * DNR Comfort Care Arrest (DNR-CCA) [place] (Latest Code Status on File) Date ActivatedDate OpevpmltvikUqodcvno94/2/2024 4:14 PM10 5:30 PM * Full Code Date ActivatedDate InactivatedComments05/14/2017 5:39 PM2 8:12 PM Care Teams Team MemberRelationshipSpecialtyStart DateEnd Date Luiz Charles MD [address] [place] [address], [address] [place] [address] PCP - GeneralPediatrics11/17/16
--- OUTSIDE RECORDS SUMMARY | 2025-03-23 09:36 | XMS_ITS | Clinical Summary ---
Author Organization [facility] Address [address] [place] [address] Care Team Providers Care [employer] Revenue Officer Name Role Phone Luiz Charles MD Primary Care Provider [phone] Allergies Active AllergyReactionsCriticalityNoted DyocIhvauvslGattcqidqtdRlmhjtw34/22/2013 CiprofloxacinHives,Other,Dxwvmjv9410/14/2012 Anxiousness TmvhnirYcvnyij89/22/2013 Unsure of reaction IwhomblmrdcxCokcg37/22/2013 And anxiousness LyeemujHmwov51/22/9200YwquetazdiLxzjszfh34/23/2013MeloxicamGI intolerance 11/05/2017 Other Reaction(s): GI Disturbance YgytzYjeyn95/13/2021 If he eats 2 days in a row Pork Derived (Porcine)Hives07/06/2020 If he eats 2 days in a row Sulfa (Sulfonamide Antibiotics)Hives,Jgtyrkf7710/14/2012TerfenadineUnknown 10/14/2012 Medications MedicationSigDispense QuantityRefillsLast FilledStart DateEnd DateStatus allopurinol (Zyloprim) 300 mg tablet Take 1 tablet by mouth in the morning.05/07/2023ctive amLODIPine (Norvasc) 10 mg tablet Take 1 tablet by mouth in the morning.07/06/2023ctive clotrimazole (Lotrimin) 1 % external solution 12/18/2023ctive simvastatin (Zocor) 20 mg tablet Take 20 mg by mouth in the morning.05/07/2023ctive albuterol 90 mcg/actuation inhaler Inhale 2 puffs in the morning, afternoon, and at bedtime.01/06/2024ctive fluticasone (Flovent) 110 mcg/actuation inhaler Inhale 2 puffs in the morning.01/06/2024ctive omeprazole (PriLOSEC) [address] capsule Take 20 mg by mouth before breakfast.01/06/2024ctive Active Problems ProblemNoted DateDiagnosed DateMastoiditis of right side12/26/2023rostate stbwui5404/08/2021sthma in adult, mild persistent, uhjhmxfvbxdtk28/19/2018 Essential xvuvrqxgyjfv56/19/2018GERD (gastroesophageal reflux disease)05/14/2017 Gout05/14/20177096Arzqhnqhenefhy08/19/0273Dewaobn37/19/9009Awucilfnb11/23/2013 Immunizations ImmunizationAdministration DatesNext DueInfluenza, High Dose Seasonal, Preservative Free01/14/2020,01/13/2019,01/08/2018,01/29/2017Influenza, High-dose Seasonal, Quadrivalent, Preservative Free01/03/2023,02/07/2022,01/14/2021 Influenza, Tstwgnlxiwh07/15/2016,01/25/2015,01/08/2014Influenza, seasonal, /14/2020Influenza, seasonal, injectable, preservative free, 6 moonths & older12/31/2023Moderna 12 YR UP Vaccine BiValent Qiubasy7605/31/2020 Pneumococcal Conjugate PCV 13105/10/2015Pneumococcal Polysaccharide PPV23 01/08/2018RSV, Adult, Hidmwuda22/11/4898Rtrd14/27/2013Zoster, Recombinant 01/03/2023,06/23/2018,03/06/2018Zoster, live01/31/2013 Social History Tobacco UseTypesPacks/DayYears UsedDateSmoking Tobacco: Never AssessedSex and Gender InformationValueDate RecordedSex Assigned at BirthNot on fileLegal Sex Male12/28/2023 12:01 AM EDTGender IdentityNot on fileSexual OrientationNot on file Plan of Treatment Health MaintenanceDue DateLast DoneCommentsCT Bpraqfoayyku45/16/1952Colonoscopy 1951olorectal Cancer Smgqovtui08/16/1952FIT-DNA1951FIT1950 FOBT1950Medicare Annual Wellness (AWV)1950 7749Jpifnyrlxhchw82/16/1952 Depression Rmbfofktb47/16/1964Fall Risk Uomubdpir61/16/2017Adult Tetanus COVID-19 Vaccine ( season)/12/2022, 02/07/2022, 10/25/2021, Additional history existsInfluenza Vaccine (#1) /09/2023, 01/03/2023, 02/07/2022, Additional history exists Pneumococcal Vaccine: 50+ XvqjmRqmvebrbk37/16/2018, 03/09/2016Zoster Vaccines Phrqeuejl26/11/2023, 06/23/2018, 03/06/2018, Additional history existsHIB VaccinesAged OutNo longer eligible based on patient's age to complete this topic HPV VaccinesAged OutNo longer eligible based on patient's age to complete this topicIPV VaccinesAged OutNo longer eligible based on patient's age to complete this topicMeningococcal B VaccineAged OutNo longer eligible based on patient's age to complete this topicMeningococcal VaccineAged OutNo longer eligible based on patient's age to complete this topicRotavirus VaccinesAged OutNo longer eligible based on patient's age to complete this topic Insurance Care Teams Team MemberRelationshipSpecialtyStart DateEnd Date Luiz Charles MD [address] [place] [address], [address] [place] [address] [facility] - Mtsqmgz63/14/24
--- OUTSIDE RECORDS SUMMARY | 2025-03-23 09:37 | XMS_ITS | Clinical Summary ---
Author Organization [facility] Address [address] [place] [address] Care Team Providers Care Oil Field Pumper Name Role Phone Luiz Charles MD Primary Care Provider + Allergies Active AllergyReactionsCriticalityNoted DateCommentsCiprofloxacin HclOther: See Hqknrbql04/13/2021 Anxiousness UqjnmclirzwbIdqiw03/13/2021 And anxiousness Pork Derived (Porcine)Hives07/06/2020 Medications MedicationSigDispense QuantityRefillsLast FilledStart DateEnd DateStatus ALLOPURINOL ORAL Take 300 mg by mouth once daily.Active amLODIPine (NORVASC) 10 mg tablet Take 10 mg by mouth once daily.Active aspirin, enteric coated (ASPIRIN, ENTERIC COATED) 81 mg EC tablet Take 81 mg by mouth once daily.Active docosahexaenoic acid/epa (FISH OIL ORAL) Take 1,000 mg by mouth once daily.Active hydroCHLOROthiazide (HYDRODIURIL, ESIDRIX) 25 mg tablet Take 25 mg by mouth once daily.Active MULTI-VITAMIN ORAL Take by mouth once daily.Active omeprazole (PRILOSEC) 20 mg capsule Take 20 mg by mouth once daily.Active simvastatin (ZOCOR) 20 mg tablet Take 20 mg by mouth daily at bedtime.Active Family History Medical HistoryRelationCommentsCancerSister 1BreastCancerSister 2Ovarian cancer- 75 years oldRelationStatusCommentsSister 1AliveSister 2Deceased Social History Tobacco UseTypesPacks/DayYears UsedDateSmoking Tobacco: YwbzklVeplufnmtn3Pjrl: 07/06/1974Smokeless Tobacco: NeverAlcohol UseStandard Drinks/WeekCommentsYes6 (1 standard drink = 0.6 oz pure alcohol)1- 6 pack/weekArea Deprivation IndexAnswer Date RecordedNational Score (1-100), lower number is lower riskNot on file 07/06/2020tate Score (1-10), lower number is lower riskNot on file07/06/2020 Data from: https://www.neighborhoodatlas.medicine.[facility]/. Last address used for calculationNot on file07/06/2020ex and Gender InformationValueDate Recorded Sex Assigned at BirthNot on fileLegal JzhUyeb0906/28/2020 10:03 AM EDTGender IdentityNot on fileSexual OrientationNot on file Last Filed Vital Signs Vital SignReadingTime TakenCommentsBlood Trstvaut263/8207/06/2020 11:01 AM EDT Wfgpr458107/06/2020 11:01 AM VFBNhqbegopxbw35.7 ??C (98.1 ??F)07/06/2020 11:01 AM EDTRespiratory Zxgm122107/06/2020 11:01 AM EDTOxygen Tlunnmgase10%07/06/2020 11:01 AM EDTInhaled Oxygen Concentration--Sueutz86.9 kg (211 lb 6.4 oz)07/06/2020 11:01 AM EDTHeight--Body Mass Index-- Plan of Treatment Health MaintenanceDue DateLast DoneCommentsAbdominal Aortic Aneurysm Screening 1951nxiety Pqzastnon70/16/1970Depression Nvpvgcavy84/16/1970Hepatitis C Ysetpkmjm10/16/1970CT Ksgpfbxuijsv77/16/1997Cologuard (FIT-DNA)1996 Bdryrrkwoky82/16/1997Colorectal Cancer Wxxfpolad42/16/1997Fecal Occult Blood 04/10/19961887Bzyzlgnjcoudb93/16/1997DTaP,Tdap,Td Vaccine (2 - Td or Tdap)11/19/2022 11/19/2012Lipid Bvaxccdgh14Diabetes Ybfwujwkj61/16/2024 06/08/2020, 04/13/2020, 08/11/2018, Additional history existsAdvance Directive Qkypmmatya05/01/2025Covid-19 Vaccine (2 - season)5005/27/2020 Influenza Vaccine (#1)510/, 01/13/2019, 01/08/2018, Additional history existsRSV Vaccine (1 - 1-dose 75+ series)2026Pneumococcal Vaccine: 50+Sludutsxa75/16/2018, 03/09/2016Shingrix DwchagnPkrofdqeq64/31/2019, 03/06/2018, 01/31/2013 Insurance Care Teams Team MemberRelationshipSpecialtyStart DateEnd Date Luiz Charles MD [address] [place] [address], [address] [place] [address] PCP - GeneralInternal Medicine06/28/20
--- OUTSIDE RECORDS SUMMARY | 2025-03-23 09:39 | XMS_ITS | CCD ---
Author Organization [facility] Care Team Providers Care Reel Worker Name Role Phone BRIANNA BRUNNER Unavailable Unavailabl e GAYVENUST, MARGO MUNGUIAN Unavailable Unavailable Hiestand, Brianna Yogi Unavailable Unavailabl e GAYVENUST, MARGO ALLEN Unavailable Unavailable Hiestand, Brianna Yogi Unavailable Unavailabl e HIESTAND, BRIANNA YOGI Unavailable Unavailabl Phylicia Melgar Unavailable Unavailable Myesha, Brianna Calix Unavailable UnavailBRIANNA Miller Primary Care Physician [phone] VARSHA ., DR CARVALHO Consulting Unavailable MADDOX ., DR CARVALHO Admitting Unavailable HIESTDOE, DR BRIANNA Mcghee Primary Care Unavailable MADDOX ., DR CARVALHO Attending Unavailable MADDOX ., DR CARVALHO Admitting Unavailable MADDOX ., DR CARVALHO Attending Unavailable MYESHA, DR BRIANNA Mcghee Primary Care Unavailable MADDOX ., DR CARVALHO Consulting Unavailable MADDOX ., DR CARVAHLO Consulting Unavailable MADDOX ., DR CARVALHO Admitting Unavailable MADDOX ., DR CARVALHO Attending Unavailable MYESHA, DR BRIANNA Mcghee Primary Care Unavailable NATALYA ROGER Referring Unavailable BRIANNA BRUNNER Primary Care Unavailable OSCAR JOHNSON Attending Unavailable BRIANNA BRUNNER Referring Unavailable BRIANNA BRUNNER Primary Care Unavailable OSCAR JOHNSON Attending Unavailable BRIANNA BRUNNER Referring Unavailable LULIESTBRIANNA AZAR Primary Care Unavailable BRIANNA BRUNNER Primary Care Unavailable FADI MATA Attending Unavailable BALAJI LISA Consulting Unavailable TREY LUNDY Admitting Unavailable ELIS MONK Consulting Unavailable [facility] Consulting Unavailable SEAMUS MARINO Consulting Unavailable FADI MATA Attending Unavailable FADI MATA Referring Unavailable BRIANNA BRUNNER Primary Care Unavailable FADI MATA Attending Unavailable FADI MATA Referring Unavailable BRIANNA BRUNNER Primary Care Unavailable LOGAN ARANA Attending Unavailable BRIANNA BRUNNER Referring Unavailable HIESTAND, BRIANNA Mcghee Primary Care Unavailable DARIEN VIRGEN Attending Unavailable Brianna Brunner MD Primary Care Provider BRIANNA BRUNNER Attending Unavailable HIESTAND, BRIANNA Mcghee Referring Unavailable HIESTAND, BRIANNA Mcghee Primary Care Unavailable HIESTAND, BRIANNA Mcghee Referring Unavailable HIESTAND, BRIANNA Mcghee Primary Care Unavailable Maia Maddox MD Attending Provider Maia Maddox Attending Unavailable Varsha, Maia Admitting Unavailable Unavailable Primary Care Provider UnavailALENA Mendez Attending Unavailable Myesha MCPHERSON, Brianna Mcghee Primary Care Provider BENNIE SANDERS Attending Unavailable VARSHA, Maia Marie Attending Unavailable VARSHA, Maia R Attending Unavailable VARSHA, Maia Marie Attending Unavailable VARSHA, Maia Marie Attending Unavailable Genia Liao Attending Unavailable VARSHA, Maia Marie Attending Unavailable VARSHA, Maia R Attending Unavailable Brianna Brunner MD Primary Care Provider PHYLICIA GUNDERSON Attending Unavailable LULIESTAND, BRIANNA Mcghee Referring Unavailable HIESTAND, BRIANNA Mcghee [...] Unavailable HIESTAND, BRIANNA Mcghee Primary Care Unavailable Allergies Allergy ClassificationReported Allergen(s)Allergy TypeDate of OnsetReaction(s) Facility (1 source)amoxicillin / clavulanate; Translations: [Augmentin]Drug Allergy [facility] Repository (20 sources)Ciprofloxacin; Translations: [ciprofloxacin]Drug [id number] Anxiety (finding), Hives, [facility] ([facility])Erythromycin; Translations: [erythromycin]Drug Cvpuydw95-91-7377 Feeling nervous (finding), [facility]ivesExec[facility] (9 sources)pork allergenic extract; Translations: [Pork]Drug AllergyWeal (disorder)[facility] (1 source)CiprofloxacinDrug AllergyThe [facility] (1 source)ErythromycinDrug AllergyThe [facility] (1 source)piperazineDrug AllergyThe [facility] (1 source)Sulfonamides (Antibiotic)Drug allergy (disorder)[facility] Rep[facility] (20 sources)Codeine; Translations: [CODEINE]Drug Agnwccu22-55-6758QahKhzfqi Repository (20 sources)Lanolin; Translations: [LANOLIN]Drug Midfhdl84-49-7482KrntePdqNlbrki Repository (20 sources)Lisinopril; Translations: [LISINOPRIL]Drug Sfteogu14-39-8646Vljjiryh [facility] Repository (20 sources)meloxicam; Translations: [MELOXICAM]Drug Uqvtxwl79-89-1054[facility] (20 sources)Sulfonamides (Antibiotic); Translations: [SULFA (SULFONAMIDE ANTIBIOTICS)]Propensity to adverse reactions to drug (disorder)05-42-8674Gihyz [facility] Repository (20 sources)PORK DERIVED (PORCINE); Translations: [PORK DERIVED (PORCINE)] Propensity to adverse reactions to food (disorder)00-62-5926CvxhaDggHthqtz Repository (4 sources)Amoxicillin; Translations: [AMOXICILLIN]Drug Vgvwgax42-12-7402 [facility] Repository (4 sources)Terfenadine; Translations: [TERFENADINE]Drug Tklxqlc39-75-7161 [facility] Repository (4 sources)OTHER; Translations: [OTHER]Propensity to adverse reactions (disorder)42-79-9828[facility]qmzoOcfidehbspFair[facility] Rep[facility] (3 sources)Sulfonamides (Antibiotic)Drug Fogksjr93-05-7158ZaphhwpUPUW Healthcare Medications Current Medications MedicationDrug Class(es)DatesSig (Normalized)Sig (Original)Acetaminophen / Hydrocodone (1 source)Opioid AgonistStart: 30-70-5032xyrusjjxzeltu-hydrocodone See Instructions, Refill(s) 0 Start Date: 05/26/24 Status: [id number] 200 actuat albuterol 0.09 mg/actuat metered dose inhaler (20 sources)beta2-Adrenergic AgonistStart: 63-29-2514eoov 2 puff(s) by inhalation every six hours as needed for wheezingalbuterol (PROVENTIL HFA;VENTOLIN HFA) 90 mcg/actuation inhaler Inhale 2 puffs every 6 (six) hours as needed for wheezing. 18 g 01/06/2024 Activetake 2 puff(s) by inhalation every six hoursalbuterol HFA 90 mcg/act inhaler Inhale 2 puffs every 6 (six) hours if needed Active End: 93-74-5531lrqw 2 puff(s) by inhalation every six hours as needed for wheezingalbuterol (PROVENTIL HFA;VENTOLIN HFA) 90 mcg/actuation inhaler Inhale 2 puffs every 6 (six) hours as needed for wheezing. 01/06/2024 Discontinued (Reorder)allopurinol 300 mg oral tablet (20 sources)Xanthine Oxidase InhibitorStart: 12-27-2023 End: 44-80-3035izej 300 mg by mouth once eryvq120 mg, oral, Daily, First dose on [place] 12/27/23 at 0900, Look-alike/sound-alike medication - verify indication for use.Start: 06-07-2020 End: 13-80-7548orqb 1 tablet by mouth in the morningallopurinoL (ZYLOPRIM) 300 mg tablet Take 1 tablet (300 mg total) by mouth in the morning. 90 tablet 3 05/09/2024 ActiveamLODIPine 10 mg oral tablet (20 sources)Dihydropyridine Calcium Channel BlockerStart: 06-07-2020 End: 33-68-9182nyup 1 tablet by mouth in the morningamLODIPine (NORVASC) 10 mg tablet Take 1 tablet (10 mg total) by mouth in the morning. 90 tablet 3 0 05/13/2024 Activeamoxicillin 875 mg / clavulanate 125 mg oral tablet (11 sources)Penicillin-class AntibacterialStart: 12-10-2023 End: 13-13-2634cwll 1 tablet by mouth onceamoxicillin-pot clavulanate (AUGMENTIN) 875-125 mg per tablet Indications: Acute swimmer's ear of right side Take 1 tablet by mouth every 12 (twelve) hours for 14 days. 28 tablet 12/20/2023 01/03/2024 Activeapixaban (6 sources)Factor Xa InhibitorStart: 01-15-2024 End: 43-78-2853lmhd 2 tablets by mouth twice daily, then take 1 tablet by mouth twice dailyapixaban (ELIQUIS DVT-PE TREAT 30D START) 5 mg (74 tabs) tablets,dose pack tablet Take 2 tablets bymouth twice daily for 7 days, then take 1 tablet twice daily 74 tablet 01/15/2024 05/01/2024 DiscontinuedStart: 65-51-1087adww 2 tablets by mouth twice daily, then take 1 tablet by mouth twice dailyapixaban (ELIQUIS DVT-PE TREAT 30D START) 5 mg (74 tabs) tablets,dose pack tablet Take 2 tablets bymouth twice daily for 7 days, then take 1 tablet twice daily 74 tablet 01/15/2024 Activeaspirin 81 mg delayed release oral tablet (20 sources)Platelet Aggregation Inhibitor, Nonsteroidal Anti-inflammatory Drug Start: 53-29-9337tzix 1 mg by mouth once dailyaspirin 81 mg Oral EC Tab mg tab(s), Oral, Daily, Refills(s) 0 Start Date: 06/07/20 Status: OrderedStart: 05-20-2019 End: 09-30-4159zvdd 1 mg by mouth once dailyaspirin 81 mg Oral EC Tab mg tab(s), Oral, Daily, Refills(s) 0 Start Date: 06/07/20 Status: Ordered Repeat number: 1 azithromycin 250 mg oral tablet (4 sources)Macrolide AntimicrobialStart: 05-07-2024 End: 59-54-7488jlqsrloqlilc (ZITHROMAX) 250 mg tablet Take 2 tablets the first day, then 1 tablet daily for 4 days. 6 tablet 05/07/2024 05/11/2024 ActiveStart: 05-21-2023 End: 77-89-4893dphviddjqudv (ZITHROMAX) 250 mg tablet Indications: Bronchitis Take 2 tablets the first day, then 1tablet daily for 4 days. 6 tablet 0 05/21/2023 05/25/2023 Activecefdinir 300 mg oral capsule (2 sources)Cephalosporin AntibacterialStart: 08-07-2023 End: 21-26-8141ghkh 1 capsule by mouth in the morning, then take 1 capsule by mouth at bedtimecefDINIR (OMNICEF) 300 mg capsule Take 1 capsule (300 mg total) by mouth in the morning and 1 capsule (300 mg total) before bedtime. Do all this for 7 days. 14 capsule 08/07/2023 08/14/2023 ActiveStart: 05-29-2023 End: 44-28-6678zwbr 1 capsule by mouth in the morning, then take 1 capsule by mouth at bedtimecefDINIR (OMNICEF) 300 mg capsule Take 1 capsule (300 mg total) by mouth in the morning and 1 capsule (300 mg total) before bedtime. Do all this for 7 days. 14 capsule 0 05/29/2023 06/05/2023 Activecefepime 100 mg/ml injectable solution (9 sources)Cephalosporin AntibacterialStart: 12-31-2023 End: 23-74-0505wvqd 2 g intravenously every eight hourscefepime 100 gram recon soln Infuse 2 g into a venous catheter every 8 (eight) hours for 9 days. 1 each 12/31/2023 01/09/2024 ActivecefEPime 2,000 mg in sodium chloride 0.9 % 100 mL IVPB MINI-BAG Plus (9 sources)Start: 12-31-2023 End: 08-13-9580mfnx 2000 mg intravenously every eight hourscefEPime 2,000 mg in sodium chloride 0.9 % 100 mL IVPB MINI-BAG Plus Infuse 2,000 mg into a venous c atheter every 8 (eight) hours for 9 days. 1 each 12/31/2023 01/09/2024 Active Start: 12-31-2023 End: 39-33-6686ogjf 2000 mg intravenously every eight hourscefEPime 2,000 mg in sodium chloride 0.9 % 100 mL IVPB MINI-BAG Plus Infuse 2,000 mg into a venous c atheter every 8 (eight) hours for 9 days. 1 each 12/31/2023 01/09/2024 chlorhexidine gluconate 1.2 mg/ml mouthwash (3 sources)Start: 98-28-9123hhorzgamqxqrs (Peridex) 0.12 % solution 01/31/2023 Activeciprofloxacin 3 mg/ml / dexamethasone 1 mg/ml otic suspension (13 sources)Corticosteroid, Quinolone AntimicrobialStart: 12-26-2023 End: drop, right ear, 2 times daily, First dose on Sun12/26/23 at 2100, Look-alike/sound-alike medication - verify indication for use.Start: 12-25-2023 End: 09-33-5205myfqzcefuxlcl-dexAMETHasone (CIPRODEX) otic suspension Indications: Acute swimmer's ear of right side Administer 4 drops to the right ear in the morning and 4 drops before bedtime. Do all this for 10days. 7.5 mL 12/31/2023 01/10/2024 Activeclotrimazole 10 mg/ml topical solution (3 sources)Azole AntifungalStart: 12-17-2023 End: 01-63-1124lpteomesmtbr (LOTRIMIN) 1 % external solution Indications: Acute swimmer's ear of right side Apply 1 Application topically in the morning and 1 Application before bedtime. Do all this for 7 days. 3 drops. 30 mL 12/17/2023 12/24/2023 Activedocosahexaenoic acid 120 mg / eicosapentaenoic acid 180 mg oral capsule (3 sources)take 1 capsule by mouth in the morningomega-3 (fish oil) 1000 MG capsule Take 1,200 mg by mouth in the morning. Activedoxycycline hyclate 100 mg oral tablet (1 source)Tetracycline-class DrugStart: 62-51-3135whzdrlkglbh hyclate 100 mg Tab 100 mg = 1 tab(s), Refills(s) 0 Start Date: 05/26/24 Status: Orderedferrous sulfate (3 sources)take 1 tablet by mouth in the morningFerrous Sulfate (IRON PO) Take 1 tablet by mouth in the morning. ActiveFish Oils (8 sources)Start: 52-24-5687yems 1 mg by mouth once dailyFish Oil 1000 mg oral capsule mg cap(s), Oral, Daily, Refills(s) 0 Start Date: 06/07/20 Status: Ordered Repeat number: 1Start: 38-07-3186hppi 1 mg by mouth once dailyFish Oil 1000 mg oral capsule mg cap(s), Oral, Daily, Refills(s) 0 Start Date: 06/07/20 Status: Orderedfluocinonide 0.5 mg/ml topical solution (3 sources)CorticosteroidStart: 56-97-4400nrpmrbnmtbyb (Lidex) 0.05 % external solution Apply topically every 12 (twelve) hours 06/15/2021 Qylalx350 actuat fluticasone propionate 0.11 mg/actuat metered dose inhaler (20 sources)CorticosteroidStart: 05-22-2023 End: 08-73-4391wfmz 2 puff(s) by inhalation once dailyfluticasone propionate (FLOVENT HFA) 110 mcg/actuation inhaler Inhale 2 puffs once daily. Patient only takes when sick 12 g 3 01/06/2024 ActiveStart: 88-36-9450qdnq 2 puff(s) by inhalation in the morningfluticasone (Flovent) 110 MCG/ACT inhaler Inhale 2 puffs in the morning. 05/22/2023 Active End: 68-53-5565igxa 2 puff(s) by inhalation once dailyfluticasone (FLOVENT HFA) 110 mcg/actuation inhaler Inhale 2 puffs once daily. Patient only takes when sick 0 05/22/2023 Discontinued (Reorder)hydroCHLOROthiazide 25 mg oral tablet (11 sources)Thiazide DiureticStart: 50-52-2429lgce 1 mg by mouth once daily hydrochlorothiazide 25 mg oral tablet mg tab(s), Oral, Daily, Refills(s) 0 Start Date: 06/07/20 Status: Ordered Repeat number: 1hydrocortisone 10 mg/ml / neomycin 3.5 mg/ml / polymyxin b 24710 unt/ml otic solution (2 sources)Aminoglycoside Antibacterial, Polymyxin-class Antibacterial, CorticosteroidStart: 11-30-2023 End: 96-79-7866yuyfbnbn-polymyxin-HC (CORTISPORIN) otic solution Indications: Acute swimmer's ear of right side Administer 3 drops to the right ear 3 (three) times a day for 7 days. 10 mL 11/30/2023 12/05/2023 DiscontinuedhydrOXYzine hydrochloride 25 mg oral tablet (3 sources)AntihistamineStart: 64-91-6504fmex 1 tablet by mouth three times daily as neededhydrOXYzine (ATARAX) 25 mg tablet Indications: Urticaria Take 1 tablet (25 mg total) by mouth 3 (three) times a day as needed for itching. 30 tablet 01/08/2025 Activeketoconazole 20 mg/ml medicated shampoo (3 sources)Azole AntifungalStart: 54-75-2230wqlxwyktlaif (NIZOral) 2 % shampoo Apply topically 06/15/2021 Activeketorolac tromethamine 10 mg oral tablet (3 sources)Nonsteroidal Anti-inflammatory Drug, Cyclooxygenase InhibitorStart: 82-06-3033desq 1 tablet by mouth once daily as needed for painketorolac 10 mg Tab 10 mg = 1 tab(s), Oral, Daily, PRN for pain, # 15 tab(s), Refills(s) 0, Pharmacy: [facility] [id number], 178, cm, 05/26/24 12:30:00 EST, Height/Length Dosing, 99, kg, 05/26/24 12:30:00 EST, Weight Dosing Start Date: 05/26/24 Status: OrderedStart: 12-27-2023 End: 32-28-765619 mg, intravenous, Once, On [place] 12/27/23 at 1500, For 1 dose, Look-alike/sound-alike medication - verify indication for use. Duration of therapy is not to exceed 5 days. Maximum recommended dose + 120mg/24 hours.Multi Vitamin+ (8 sources)Start: 27-40-8993Uaani Vitamin+ Refill(s) 0 Start Date: 06/07/20 Status: Ordered Repeat number: 1Start: 32-37-6374Zqqjc Vitamin+ Refill(s) 0 Start Date: 06/07/20 Status: Sakkgmqbaqmbclu-myem-DW-calcium &mins (THERAGRAN-M) 9 mg iron-400 mcg tablet (20 sources)ioylhmrq-pmob-WX-calcium &mins (THERAGRAN-M) 9 mg iron-400 mcg tablet Take 1 tablet by mouth inthe morning.rjivlyxf-vyyz-TW-calcium &mins (THERAGRAN-M) 9 mg iron-400 mcg tablet Take 1 tablet by mouth inthe morning. Bxbzuyffgoywswmzb-mivl-UZ-calcium &mins (THERAGRAN-M) 9 mg iron-400 mcg tablet Take 1 tablet by mouth inthe morning. Atnmqrkuaggstk-medn-RD-calcium &mins (THERAGRAN-M) 9 mg iron-400 mcg tablet Take 1 tablet by mouth inthe morning. 0 Activenirmatrelvir-ritonavir (PAXLOVID) tablets (4 sources)Start: 01-03-2024 End: 03-14-7910xngpgfuccyxl-ritonavir (PAXLOVID) tablets Take 3 tablets by mouth in the morning and 3 tablets before bedtime. Do all this for 5 days. For doses of 3 tablets - Take two 150 mg nirmatrelvir (pink) tablets at the same time as one 100 mg ritonavir (white) tablet per dose.. 30 tablet 01/03/2024 01/08/2024 Activeofloxacin 3 mg/ml otic solution (3 sources)Quinolone AntimicrobialStart: 12-17-2023 End: 82-11-4509kkxpypqzn (FLOXIN) 0.3 % otic solution Indications: Acute swimmer's ear of right side Administer 4 drops into ears in the morning and 4 drops before bedtime. Do all this for 7 days. 10 mL 3 12/17/2023 12/24/2023 Activeomega-3 fatty acids-fish oil 300-1,000 mg capsule (20 sources)take 1 capsule by mouth in the morningomega-3 fatty acids-fish oil 300-1,000 mg capsule Take 1,200 mg by mouth in the morning. Activetake 1 capsule by mouth once dailyomega-3 fatty acids-fish oil 300-1,000 mg capsule Take 1,200 mg by mouth daily.take 1 capsule by mouth once dailyomega-3 fatty acids-fish oil 300-1,000 mg capsule Take 1,200 mg by mouth daily. Suspendedtake 1 capsule by mouth once dailyomega-3 fatty acids-fish oil 300-1,000 mg capsule Take 1,200 mg by mouth daily. Activetake 1 capsule by mouth once dailyomega-3 fatty acids- fish oil 300-1,000 mg capsule Take 1,200 mg by mouth daily. 0 Activeomeprazole 20 mg delayed release oral capsule (20 sources)Proton Pump InhibitorStart: 2022 End: 40-11-0176nnki 2 capsules by mouth in the morningomeprazole (PriLOSEC) 20 mg capsule Take 2 capsules (40 mg total) by mouth in the morning. 180 capsule 3 05/13/2024 ActiveStart: 43-22-6594ptfq 1 capsule by mouth once dailyomeprazole 20 mg Cap-DR 20 mg = 1 cap(s), Oral, Daily, # 30 cap(s), Refills(s) 0 Start Date: 06/07/20 Status: Ordered Quantity: 30.0 Unit: cap(s) Repeat number: 1 omeprazole 20 mg Cap-DR (1 source)Start: 22-84-8117txov 1 capsule by mouth once dailyomeprazole 20 mg Cap-DR 20 mg = 1 cap(s), Oral, Daily, # 30 cap(s), Refills(s) 0 Start Date: 06/07/20 Status: Orderedsimvastatin 20 mg oral tablet (20 sources)HMG-CoA Reductase InhibitorStart: 06-07-2020 End: 82-37-0126kanc 1 tablet by mouth in the morningsimvastatin (ZOCOR) 20 mg tablet Take 1 tablet (20 mg total) by mouth in the morning. 90 tablet 3 Activesulfamethoxazole 800 mg / trimethoprim 160 mg oral tablet (1 source)Dihydrofolate Reductase Inhibitor Antibacterial, Sulfonamide AntimicrobialStart: 64-59-1369jyildehirvpgpfjo-trimethoprim 800 mg-160 mg Tab See Instructions, Refill(s) 0 Start Date: 05/26/24 Status: Orderedtherapeutic multivitamin-minerals (Theragran-M) tablet (3 sources)take 1 tablet by mouth once dailytherapeutic multivitamin-minerals (Theragran-M) tablet Take 1 tablet by mouth Daily ActivetraMADol hydrochloride 50 mg oral tablet (20 sources)Opioid AgonistStart: 12-26-2023 End: 11-35-7407zpdy 1 tablet by mouth every eight hours as needed for pain75 mg, oral, Every 8 hours PRN, severe pain - pain scale 7-10, Starting on Sun12/26/23 at 1719, Look-alike/sound-alike medication - verify indication for use.Start: 12-19-2023 End: 60-58-0911witb 1 tablet by mouth every eight hours as needed for pain traMADoL (ULTRAM) 50 mg tablet Indications: Acute swimmer's ear of right side Take 1 tablet (50 mg total) by mouth every 8 (eight) hours as needed for pain for up to 5 days. 15 tablet 12/31/2023 01/05/2024 ActiveStart: 12-10-2023 End: 41-53-8827cosl 1 tablet by mouth every six hours as needed for paintraMADoL (ULTRAM) 50 mg tablet Indications: Acute swimmer's ear of right side Take 1 tablet (50 mg total) by mouth every 6 (six) hours as needed for pain. 12 tablet 12/16/2023 12/17/2023 Discontinued(Reorder) Completed/Discontinued Medications MedicationDrug Class(es)DatesSig (Normalized)Sig (Original)acetaminophen 500 mg oral tablet (1 source)Start: 12-26-2023 End: 63-96-2239vfez 1 tablet by mouth every eight hours1,000 mg, oral, Every 8 hours, First dose on Sun12/26/23 at 1730, For 2 daysacetic acid 20 mg/ml / hydrocortisone 10 mg/ml otic solution (11 sources)CorticosteroidStart: 12-05-2023 End: 17-18-8942tiurqmmhvkdfkc-acetic acid (VOSOL-HC) otic solution Administer 4 drops to the right ear 3 (three) times a day. 10 mL 12/05/2023 12/31/2023 Discontinued (Stop Taking at Discharge)ampicillin-sulbactam (UNASYN) 3,000 mg in sodium chloride 0.9 % 100 mL IVPB-MBP (2 sources)Start: 12-27-2023 End: 30-83-1944wnen 3000 mg intravenously every six hours3,000 mg, intravenous, at 200 mL/hr, Administer over 30 Minutes, Every 6 hours, First dose (after last reorder) on Sun12/27/23 at 1015, ADD-VANTAGE/MBP- Discard 8 hours after activating; dissolve drug prior to administration., Indication: Skin and soft tissue infectionStart: 12-26-2023 End: 43,000 mg, intravenous, at 200 mL/hr, Administer over 30 Minutes, Once, On Sun12/26/23 at 1305, For 1 dose, ADD-VANTAGE/MBP- Discard 8 hours after activating; dissolve drug prior to administration., Indication: Skin and soft tissue infectionatorvastatin 10 mg oral tablet (1 source)HMG-CoA Reductase InhibitorStart: 12-27-2023 End: 51-96-2589psfz 10 mg by mouth once daily10 mg, oral, Daily, First dose on Sun12/27/23 at 0900, Look-alike/sound-alike medication - verify indication for use.cefEPime (MAXIPIME) 2,000 mg in sodium chloride 0.9 % 100 mL IVPB-MBP (1 source)Start: 12-27-2023 End: 37-77-4947yqdf 2000 mg intravenously every eight hours2,000 mg, intravenous, at 25 mL/hr, Administer over 4 Hours, Every 8 hours, First dose on Sun12/27/23 at 2130, ADD-VANTAGE/MBP- Discard 24 hours after activating; dissolve drug prior to administration. Protect dry powder vial from light., Indication: Other, Specify: otomastoiditis1 ml dexamethasone phosphate 10 mg/ml injection (1 source)CorticosteroidStart: 12-27-2023 End: 54-13-8392eupm 10 mg intravenously every eight hours10 mg, intravenous, Every 8 hours, First dose on Sun12/27/23 at 1345, For 3 doses, May alter blood g lucose or insulin requirements. Look-alike/sound-alike medication - verify indication for use.dexamethasone 1 mg/ml / tobramycin 3 mg/ml ophthalmic suspension (4 sources)Aminoglycoside Antibacterial, CorticosteroidStart: 12-20-2023 End: 93-69-6263nofn 4 drop(s) into the eye(s) every four hourstobramycin- dexAMETHasone (Tobradex) ophthalmic solution Indications: Acute swimmer's ear of right side Administer 4 drops to the right ear every 4 (four) hours while awake for 7 days. 10 mL 12/20/2023 12/31/2023 Discontinued (Stop Taking at Discharge) 0.4 ml enoxaparin sodium 100 mg/ml prefilled syringe (1 source)Low Molecular Weight HeparinStart: 12-28-2023 End: 91-81-0122lgpmkx 40 mg by subcutaneous injection once daily40 mg, subcutaneous, Daily, First dose on Sun12/28/23 at 1430, Look-alike/sound-alike medication - verify indication for use.glucagon (rdna) 1 mg injection (1 source)Antihypoglycemic AgentStart: 12-26-2023 End: 25-26-3120989 ml glucose 50 mg/ml injection (3 sources)Start: 12-26-2023 End: 77-77-5970Dgrfb: 12-26-2023 End: 75-95-8355Djbgi: 12-26-2023 End: ml hydrALAZINE hydrochloride 20 mg/ml injection (1 source)Arteriolar VasodilatorStart: 12-28-2023 End: 55-12-7817lypx 10 mg intravenously every six hours as kmjmxi99 mg, intravenous, Every 6 hours PRN, high blood pressure, Starting on Sun12/28/23 at 0022, For systolic blood pressure greater than 155 mmHg Look-alike/sound-alike medication - verify indication for use. Administer IV doses as a slow IV push; maximum rate: 5 mg/minute.iohexoL (OMNIPAQUE) 300 mg iodine/mL 100 mL (1 source)Start: 12-26-2023 End: mL, intravenous, Once in imaging, contrast, Starting on Sun12/26/23 at 1626, For 1 dose, VESICANT (RED)methylPREDNISolone (4 sources)CorticosteroidStart: 12-20-2023 End: 48-57-3730wfngkbYKGNMNPtdidd (MEDROL, JACQUELIN,) 4 mg tablet Indications: Acute swimmer's ear of right side Take as directed 21 tablet 12/20/2023 12/26/2023 Discontinued (Therapy completed)Start: 90-64-4657mviwlqGBZYAQHvknba (MEDROL, JACQUELIN,) 4 mg tablet Indications: Acute swimmer's ear of right side Take as directed 21 tablet 12/20/2023 Activepantoprazole 40 mg delayed release oral tablet (1 source)Proton Pump InhibitorStart: 12-27-2023 End: 21-04-235991 mg, oral, Daily, First dose on Sun12/27/23 at 0600, Look-alike/sound-alike medication - verify indication for use. If patient is receiving enteral feeding, consider alternative PPI or continue IV pantoprazole until the delayed-release tablet can be taken orally, Indication: GERD polyethylene glycol 3350 74272 mg powder for oral solution (2 sources)Osmotic LaxativeStart: 12-27-2023 End: 17-30-948119 g, oral, Once, On Hazel 12/27/23 at 1500, For 1 dose, Look-alike/sound-alike medication - verify indication for use. Dissolve 1 packet (17 gm) in 8 ounces of water, juice, soda, coffee or tea.Sodium Chloride (8 sources)Start: 12-31-2023 End: 71-77-6638ytbk 10 mL intravenously every twelve hourssodium chloride 0.9 % flush mLStart: 12-26-2023 End: mL, intravenous, Every 12 hours scheduled, First dose on Sun12/26/23 at 2100Start: 12-26-2023 End: 15-76-9371eadq 20 mL intravenously every hour as pujrym90 mL/hr, intravenous, Continuous PRN, to maintain patency of lines, Starting on Sun12/26/23 at 1719Start: 12-26-2023 End: 91-20-4977zgso 25 mL intravenously every hour as wdnquz87 mL, intravenous, at 100 mL/hr, Administer over 15 Minutes, As needed, line care, line care after IVPB administration, Starting on Sun12/26/23 at 1719Start: 12-26-2023 End: 13-59-842956 mL, intravenous, Once in imaging, pre/post contrast, Starting on Sun12/26/23 at 1626, For 1 doseStart: 12-26-2023 End: 25-16-8596Vwrks: 12-26-2023 End: 16-48-2355amva 250 mL intravenously every tcaa497 mL/hr, intravenous, Continuous, Starting on Sun12/26/23 at 1315, For 4 hours Problems Active Problems Problem ClassificationProblemDateDocumented DateEpisodic/ChronicAbdominal pain (1 source)Left inguinal pain; Translations: [Left lower quadrant pain]10-27-2024 EpisodicAllergic reactions (2 sources)Urticaria; Translations: [Urticaria, unspecified]20-91-1855Ldpxbnbo Asthma (20 sources)Asthma; Translations: [Uncomplicated mild persistent asthma]Onset: 731001-95-9141YhwvkwxZzrjze of prostate (20 sources)Malignant tumor of prostate; Translations: [Malignant neoplasm of prostate]Onset: 052738-76-3115FbfpkwvEwalhe of prostate (19 sources)Personal history of malignant neoplasm of prostate; Translations: [History of malignant neoplasm ofprostate]Onset: 95-20-0816RurwdndjLicuxotob of lipid metabolism (20 sources)Hyperlipidemia; Translations: [Hyperlipidemia, unspecified]Onset: 936899-28-9655MsjibwlUhbavcgcdr disorders (20 sources)Gastroesophageal reflux disease; Translations: [Gastro-esophageal reflux disease without esophagitis]Onset: 953872-32-5496PpdsrfuUrihqhkdd hypertension (20 sources)Hypertensive disorder; Translations: [Essential hypertension]Onset: 085559-10-6058XfriytsHvewcjuprovra symptoms and ill-defined conditions (18 sources)Stress incontinence (female) (male); Translations: [Genuine stress incontinence]Onset: 31-28-7831IeqczntSdmemidtydklo symptoms and ill-defined conditions (16 sources)Nocturia; Translations: [Poor stream of urine]59-11-1290BgwwkpxwOzji and other crystal arthropathies (20 sources)Gout; Translations: [Gout, unspecified]Onset: ChronicHyperplasia of prostate (8 sources)Benign prostatic passomscfcq17-86-2420MizblnlLzazlz and vomiting (2 sources)Nausea; Translations: [Nausea]Onset: 78-14-6918LqoapgexImnzocxjcsznvn (9 sources)Arthritis; Translations: [Primary osteoarthritis, left shoulder] Onset: 972890-08-8536FtuwxvdAhkgv and unspecified benign neoplasm (2 sources)Melanocytic nevus of trunk; Translations: [Melanocytic nevi of trunk] 30-83-4152AvmqasbjQojzo and unspecified benign neoplasm (2 sources)Senile angioma; Translations: [Hemangioma of skin and subcutaneous tissue]26-01-9908DmemtpdiDnbhm connective tissue disease (1 source)Adhesive capsulitis of left shoulder; Translations: [Adhesive capsulitis of left shoulder]Onset: 00-93-0226HwrpuqchGimfd connective tissue disease (1 source)Impingement syndrome of left shoulder; Translations: [Impingement syndrome of left shoulder]Onset: 77-85-9705EvffrgmtOvhzb diseases of bladder and urethra (10 sources)Male urethral stricture; Translations: [Unspecified urethral stricture, male, unspecified site]Onset: 95-71-9633QsetpwgaBwqzi ear and sense organ disorders (1 source)Malignant otitis externa, right ear; Translations: [Malignant otitis externa, right ear]Onset: 99-79-9820YebrirgTdqhh ear and sense organ disorders (2 sources)Sensorineural hearing loss, unilateral, left ear, with restricted hearing on the contralateral side; Translations: [Sensorineural hearing loss, unilateral, left ear, with restricted hearing on the contralateral side]Onset: 38-32-2591ZqrqeixXoyyr ear and sense organ disorders (2 sources)Mixed conductive and sensorineural hearing loss, unilateral, right ear with restricted hearing on the contralateral side; Translations: [Mixed conductive and sensorineural hearing loss, unilateral, right ear with restricted hearing on the contralateral side]Onset: 88-82-4610VbjbjuhAtisi ear and sense organ disorders (8 sources)Bilateral hearing loss; Translations: [Sensorineural hearing loss, unilateral, left ear, with restricted hearing on the contralateral side] 67-86-2610ZzvonynRbctg ear and sense organ disorders (14 sources)Mixed conductive AND sensorineural hearing loss; Translations: [Mixed conductive and sensorineural hearing loss, unilateral, right ear with restricted hearing on the contralateral side]73-45-2326NlcwivhXaduw ear and sense organ disorders (1 source)Malignant otitis externa; Translations: [Malignant otitis externa, right ear]32-29-0508WpskqfmWunsz ear and sense organ disorders (1 source)Ear problemOnset: 88-57-5143CokrnxouTaptw ear and sense organ disorders (1 source)Swimmer's ear, right ear; Translations: [Swimmer's ear, right ear] Onset: 93-48-3131LsldethmFzvgd ear and sense organ disorders (5 sources)Otalgia, right ear; Translations: [Otalgia, unspecified]Onset: 532818-26-9864IanckjrlRakco ear and sense organ disorders (2 sources)Other infective otitis externa, right ear; Translations: [Other infective otitis externa, right ear]Onset: 83-46-3889JhoaljmwPaxjm ear and sense organ disorders (7 sources)Bilateral tinnitus; Translations: [Tinnitus, bilateral]02-05-2024 EpisodicOther ear and sense organ disorders (1 source)Other specified disorders of right ear; Translations: [Other specified disorders of right ear]Onset: 93-78-5719DyvvabrwWhppt ear and sense organ disorders (2 sources)Ear sensations - finding; Translations: [Other specified disorders of right ear]31-89-8496AyyhrusrBopse male genital disorders (1 source)Hydrocele of testis; Translations: [Hydrocele, unspecified]Onset: 98-51-6217UftdeujkFyuup male genital disorders (5 sources)Disorder of male genital organ; Translations: [Other specified disorders of the male genital organs]Onset: 576414-79-0733GzejmmkdOmlve male genital disorders (2 sources)Swelling of jbpgpox82-54-7046PfnyuxyyQnwxo male genital disorders (1 source)Pain in scrotum ; Translations: [Scrotal pain]Onset: 10-22-2024 EpisodicOther non-epithelial cancer of skin (2 sources)History of malignant basal cell neoplasm of skin; Translations: [Personal history of other malignant neoplasm of skin]49-82-5998TtnevnsiQnule skin disorders (2 sources)Seborrheic keratosis; Translations: [Other seborrheic keratosis] 91-53-6879HhujwpoaFdvkr skin disorders (2 sources)Inflamed seborrheic keratosis; Translations: [Inflamed seborrheic keratosis]58-25-8617VkopkfubVppucpkcu; thrombophlebitis and thromboembolism (3 sources)Deep venous mzgotplmzf97-26-4911VawuertzFrzwybfnry arthritis and related disease (1 source)Ankylosing spondylitis of cervical region; Translations: [Ankylosing spondylitis of cervical region]Onset: 09-76-7506YgxfkbbIthxmjjzx-related disorders (8 sources)Xvrngd11-55-3250GgzvvgwEtnlmol on above:Added secondary to documentation in Social History.Unclassified (8 sources)Long-term current use of xcunxxb03-22-5649Mtwpcgvlgfzx (1 source)Acute swimmer's ear of right sideOnset: 39-65-9976Wbnyurnpqhhi (1 source)Ear FullnessOnset: 86-79-2563Vmppsmgbcryf (1 source)eustachian tube dysfunctionOnset: 64-66-1407Bqceilqoasog (1 source)Annual ExamOnset: 26-05-9430Fvdkvwudfhfy (1 source)Hospital Follow-upOnset: 37-18-7909Ayori infection (2 sources)COVID-19; Translations: [COVID-19]Onset: 01-08-2024 Past or Other Problems Problem ClassificationProblemDateDocumented DateEpisodic/ChronicChronic obstructive pulmonary disease and bronchiectasis (1 source)Bronchitis; Translations: [Bronchitis, not specified as acute or chronic]91-63-2513EhxntzdnUclknrutkc associated with dizziness or vertigo (20 sources)Dizziness and giddiness; Translations: [Vertigo]Onset: 05-14-2017 40-87-8047ByhdhydvRurz disorders (20 sources)Mood disordersOnset: 12-26-2023 Resolved: 872241-19-2526Ixlix diseases of bladder and urethra (1 source)Unspecified urethral stricture, male, unspecified site; Translations: [UNSP URETHRAL STRCT MALE UNSP SITE]Onset: 37-74-6088SflamwzeUetzr ear and sense organ disorders (8 sources)Acute otitis externa; Translations: [Swimmer's ear, right ear] 98-88-0826SfivmjzvWlkfo ear and sense organ disorders (1 source)Otorrhea of right ear; Translations: [Otorrhea, right ear]12-17-2023 EpisodicOther ear and sense organ disorders (1 source)Tinnitus, bilateral; Translations: [Tinnitus, bilateral]Onset: 67-01-8101DcsrhivqPdjlf non-traumatic joint disorders (1 source)Pain in left shoulder; Translations: [Pain in joint, shoulder region] 17-88-2546VeohyajmSwzcb screening for suspected conditions (not mental disorders or infectious disease) (1 source)CT of head abnormal; Translations: [Abnormal findings on diagnostic imaging of skull and head, not elsewhere classified]18-54-4716IkygnaguEnsyfl media and related conditions (20 sources)Unspecified mastoiditis, right ear; Translations: [Unspecified nonsuppurative otitis media, right ear]Onset: 28-48-9632EhingwdmSgbvolwk codes; unclassified (1 source)Localized edema; Translations: [Localized edema]Onset: 01-15-2024 EpisodicResidual codes; unclassified (2 sources)Edema of right upper arm; Translations: [Localized edema]01-14-2024 Episodic Results Test NameValueInterpretationReference RangeFacilityAmbulatory Visit Summaryon 69-63-9517Ysccwckcof Visit SummaryAmbulatory Visit Summary YUE DELGADILLO :1950 Visit Date:10/22/2024 Ambulatory Visit Instructions Your Diagnosis BPH with elevated PSA Your Care Team Attending Physician - Genia Rubio Primary Care Physician - BRIANNA BRUNNER MD This Is Your Medications List allopurinol (allopurinol 300 mg Tab) amlodipine (amLODIPine 10 mg Tab) aspirin (aspirin 81 mg Oral EC Tab) hydrochlorothiazide (hydrochlorothiazide 25 mg oral tablet) multivitamin (Multi Vitamin+) omega-3 polyunsaturated fatty acids (Fish Oil 1000 mg oral capsule) omeprazole (omeprazole 20 mg Cap-DR) simvastatin (simvastatin 20 mg Tab) Procedures Performed Hydrocelectomy (05/15/2024), Radical prostatectomy (08/05/2020), Transrectal needle biopsy of prostate (06/17/2020), Appendectomy, Colonoscopy, Knee replacement. Discharge Vitals Heart Rate (Peripheral) 80 Blood Pressure 153/99 Height 178 cm Height 70 in Weight 95.6 kg Weight 210.762 lb BMI 30.17 What to do next Scheduled Follow-Up Appointments Sunday2025 8:45 AM EST With: VARSHA MCPHERSON, Maia Marie Where: [facility] [address] [address]- Medications What How Much When Instructions Unchanged allopurinol (allopurinol 300 mg Tab) By Mouth Every day Unchanged amlodipine (amLODIPine 10 mg Tab) By Mouth Every day Unchanged aspirin (aspirin 81 mg Oral EC Tab) By Mouth Every day Unchanged hydrochlorothiazide (hydrochlorothiazide 25 mg oral tablet) By Mouth Every day Unchanged multivitamin (Multi Vitamin+) Unchanged omega-3 polyunsaturated fatty acids (Fish Oil 1000 mg oral capsule) By Mouth Every day Unchanged omeprazole (omeprazole 20 mg Cap-DR) 1 Capsules By Mouth Every day Unchanged simvastatin (simvastatin 20 mg Tab) By Mouth Once a day (at bedtime) Allergies Cipro (Anxiousness) Pork (Hives) erythromycin (Nervousness) Problems Ongoing - Any problem that you are currently receiving treatment for. Arthritis Aspirin long-term use Asthma BPH with elevated PSA Deep vein thrombosis Gout Hydrocele Hyperlipidemia Hypertension Nocturia Personal history of prostate cancer Prostate cancer Scrotal swelling Stress incontinence Urethral stricture in male Weak urine stream Historical - Any problem that you are no longer receiving treatment for. Smoker Patient Survey You may receive a survey via text or e-mail asking about your office visit. Please share your experience with us by completing your survey. We appreciate your feedback and thank you for choosing us for your care. Patient Portal You may access all of your results and other medical record information on our secure patient portal. If you are not signed up for this yet, please contact [employer] at [phone] to get signed up today. Language Information Language assistance services are available as needed. [facility]/Clinic Noteon [id number] Office/Clinic NoteUrology Office/Clinic Note Chief Complaint testicle disscomfort HPI Staff 74 year old male presents for discomfort in testicle prev dx: scrotal swelling, personal hx prostate cancer IPSS: 4 CRESENCIO: N/A s/p: L hydrocelectomy 05/15/24, prostatectomy 08/05/20 Pt states he is having some pain in his left testicle when he laughs, coughs, or sneezes. A dull ache some days when he is just sitting there. Onset 1 week ago. Pt states he has not done anything strenuous recently. Denies dysuria, denies visible blood, denies any urination issues. History of Present Illness Staff HPI reviewed and agree. Review of Systems PHQ Score Initial Depression Screen Score: 0 SCORE no fever, chills, malaise, myalgia. no rash/lesions. no chest pain, palpitations, or SOB. no abdominal pain, nausea, vomiting. no unilateral calf swelling, redness, pain Physical Exam Vitals & Measurements HR: 80(Peripheral) BP: 153/99 HT: 70 in HT: 178 cm WT: 210.762 lb WT: 95.6 kg BMI: 30.17 General: nontoxic, well-nourished, appears stated age Mouth: moist mucosa Lungs: normal respiratory effort Cardio: regular rate, good distal perfusion Abdomen: nondistended, no suprapubic distention or tenderness, no CVA tenderness Neurologic: Grossly normal Skin: No rashes or suspicious lesions Assessment/Plan PRW pt. 1. Scrotal pain (N50.82: Scrotal pain) S/p L hydrocelectomy 05/15/24 - thick, indurated and friable hydrocele sac. -Swelling had decreased 4 days PO but recurred 2 days later. [facility] ER 05/23/24 due to testicular painand swelling after seeing DAO in office. Scrotal US - Multiseptated fluid collection around L testiswith some heterogeneous components, could be residual of a large hydrocele. Was given abx given concern for infection. 06/30/24 - healing has improved UA today negative for blood or infection Pt called in today with L scrotal pain. Pt reports that this has been ongoing for about a week. He was getting out of his car last Sunday and that is when the discomfort started. Pt reports pain is worse with sneezing, laughing, coughing. Pt reports there is an intermittent dull ache at rest. Ptreports he golfs 3 times per week and takes Ibuprofen those days. He does have jock strap but has not used this recently. Discussed case with Dr. Maddox her performed PE on patient and notes patient to have a L inguinal hernia. Discussed next steps with patient including general surgery referral. Pt reports he will call his PCP to general surgery referral. -See general surgery for inguinal hernia Ordered: E&M of Est. Patient Low 20-29 Min 53684 2. Personal history of prostate cancer (Z85.46: Personal history of malignant neoplasm of prostate) PSA: 07/18/21 - <0.13 01/18/22 - <0.13 07/07/22 - <0.13 03/16/23 - <0.13 03/20/24 - <0.13 TRUS/Bx 06/17/20 - G8 (4+4) x 6. S/p radical retropubic prostatectomy 08/05/20 - G7 (4+3). -PSA due 03/2025, has f/u appt already scheduled Ordered: E&M of Est. Patient Low 20-29 Min 89087 Orders: Urnls Dip Stick Auto w/o Microscopy POC [id number] Follow-up With When Contact Information VARSHA MCPHERSON, Maia Marie, URL [address] [id number]- Additional Instructions: Appointment has already been scheduled Patient Education Testicular Self-Exam Problem List/Past Medical History Ongoing Arthritis Aspirin long-term use Asthma BPH with elevated PSA Deep vein thrombosis Gout Hydrocele Hyperlipidemia Hypertension Nocturia Personal history of prostate cancer Prostate cancer Scrotal swelling Stress incontinence Urethral stricture in male Weak urine stream Historical Smoker Procedure/Surgical History Hydrocelectomy (05/15/2024), Radical prostatectomy (08/05/2020), Transrectal needle biopsy of prostate (06/17/2020), Appendectomy, Colonoscopy, Knee replacement. Medications allopurinol 300 mg Tab, Oral, Daily amLODIPine 10 mg Tab, Oral, Daily aspirin 81 mg Oral EC Tab, Oral, Daily Fish Oil 1000 mg oral capsule, Oral, Daily hydrochlorothiazide 25 mg oral tablet, Oral, Daily Multi Vitamin+ omeprazole 20 mg Cap-DR, 20 mg= 1 cap(s), Oral, Daily simvastatin 20 mg Tab, Oral, Once a day (at bedtime) Allergies Cipro (Anxiousness) Pork (Hives) erythromycin (Nervousness) Social History Alcohol - Medium Risk, 06/07/2020 Never., 05/23/2024 Substance Abuse - Denies Substance Abuse, 05/23/2024 Never., 05/23/2024 Tobacco - Low Risk, 05/23/2024 Former smoker, quit more than 30 days ago Tobacco Use:. Never Smokeless Tobacco Use:. Cigarettes, Household tobacco concerns: No. Yes, 10/22/2024 Family History Heart disease: Father. Primary malignant neoplasm of female breast: Sister. Immunizations Vaccine Date Status Comments influenza virus vaccine, inactivated 12/31/2023 Recorded RSV vaccine, preF A-preF B, recombinant 01/03/2023 Recorded zoster vaccine, inactivated 01/03/2023 Recorded influenza virus vaccine, inactivated 01/03/2023 (more content not included)... [facility] HospitalComment on above:Result Comment: Electronically Signed By: Genia Rubio\.br\Date and Time Signed: 10/22/24 11:46 EDTNo Panel Informationon 67-87-2634VSUR HealthcareAmbulatory Visit Summaryon 66-35-9969Qwxgdyrrrz Visit SummaryAmbulatory Visit Summary YUE DELGADILLO :1950 Visit Date:06/30/2024 Ambulatory Visit Instructions Your Diagnosis Scrotal swelling Personal history of prostate cancer Your Care Team Attending Physician - Maia [...] simvastatin (simvastatin 20 mg Tab) Procedures Performed Hydrocelectomy (05/15/2024), Radical prostatectomy (08/05/2020), Transrectal needle biopsy of prostate (06/17/2020), Appendectomy, Colonoscopy, Knee replacement. Discharge Vitals Temperature (Temporal Artery) 37 ???C Heart Rate (Peripheral) 101 Respiratory Rate 18 Blood Pressure 126/87 Height 178 cm Height 70 in Weight 98.5 kg Weight 217.155 lb BMI 31.09 What to do next Scheduled Follow-Up Appointments Sunday2025 8:45 AM EST With: Maia MADDOX MD Where: [facility] [address] [place] [address] [place] [address]- You Need to Schedule the Following Appointments Follow Up with Maia MADDOX MD, URL When: Where: [facility] [address], [place] [address]- [phone] Medications What How Much When Instructions Unchanged [...] long-term use Asthma BPH with elevated PSA Deep vein thrombosis Gout Hydrocele Hyperlipidemia Hypertension Nocturia Personal history of prostate cancer Prostate cancer Scrotal swelling Stress incontinence Urethral stricture in male Weak urine stream Historical - Any problem that you are no longer receiving treatment for. Smoker Patient Survey You may receive a survey via text or e-mail asking about your office visit. Please share your experience with us by completing your survey. We appreciate your feedback and thank you for choosing us for your care. Education Materials Scrotal Swelling Scrotal swelling is a condition in which the sac of skin that contains the testicles, blood vessels, and structures that help deliver sperm and semen (scrotum) is enlarged or swollen. This can happenon one or both sides of the scrotum. Many things can cause the scrotum to enlarge or swell, including: ??? Fluid around the testicle (hydrocele). ??? A weakened area in the muscles around the groin (hernia). ??? An enlarged vein around the testicle. ??? An injury. ??? An infection. ??? Certain medical treatments. ??? Certain medical conditions, such as congestive heart failure. ??? A recent genital surgery or procedure. ??? A twisting of the spermatic cord that cuts off blood supply (testicular torsion). ??? Testicular cancer. Scrotal swelling can happen along with scrotal pain. Follow these instructions at home: Activity ??? Rest as told by your health care provider. The best position is to lie down. ??? Do not lift anything that is heavier than 5 lb (2.3 kg), or the limit that you are told, until yourhealth care provider says that it is safe. ??? Avoid sexual activity until your health care provider says that it is safe. General instructions ??? Take fosd-sll-hhkilcy and prescription medicines only as told by your health care provider. ??? Perform a monthly self-exam of the scrotum and penis. Feel for changes. Ask your health care provider how to perform a mon (more content not included)...[facility]/Cl[facility] Noteon [id number] Office/Clinic NoteUrology Office/Clinic Note Chief Complaint 1 month f/u HPI Staff 1 mo f/u to reassess s/p left hydrocelectomy 05/15/24. Previous dx: scrotal swelling, personal hx of pros ca (s/p prostatectomy 08/05/20). *Rx'd Ketorolac at prior OV Denies any urinary complaints and no visible blood at any time. Pt states that he is doing much better from the hydrocelectomy with no pain or swelling. History of Present Illness Tests reviewed: reviewed UA I have reviewed the previous health record [...] HPI. Physical Exam Vitals & Measurements T: 37 ???C(Temporal Artery) HR: 101(Peripheral) RR: 18 BP: 126/87 HT: 70 in HT: 178 cm WT: 98.5 kg WT: 217.155 lb BMI: 31.09 General Appearance: alert, no distress, well nourished, well developed male. Genitourinary: normal scrotum, normal testes, normal urethra, normal epididymis, normal vas deferens/spermatic cord. Assessment/Plan Pt here with his today. 1. Scrotal swelling (N50.89: Other specified disorders of the male genital organs) S/p L hydrocelectomy 05/15/24 - thick, indurated and friable hydrocele sac. -Swelling had decreased 4 days PO but recurred 2 days later. [facility] ER 05/23/24 due to testicular painand swelling after seeing DAO in office. Scrotal US - Multiseptated fluid collection around L testiswith some heterogeneous components, could be residual of a large hydrocele. Was given abx given concern for infection. IPSS 2. Given Ketorolac at prior OV. Shares pain has improved significantly. Able to walk wo bother. no swelling at all. mild induration. suture line healing well. Typically wears scrotal support. UAtoday negative for blood and infection. Not bother w urination. Advised pt healing has improved. Recommend slowly introducing new activities but to avoid heavy lifting for another 2 wks. -Cont monitoring 2. Personal history of prostate cancer (Z85.46: Personal history of malignant neoplasm of prostate) PSA: 07/18/21 - <0.13 01/18/22 - <0.13 07/07/22 - <0.13 03/16/23 - <0.13 03/20/24 - <0.13 TRUS/Bx 06/17/20 - G8 (4+4) x 6. S/p radical retropubic prostatectomy 08/05/20 - G7 (4+3). -PSA due 03/2025, has f/u appt already scheduled Follow-up With When Contact Information VARSHA MCPHERSON, Maia Marie, URL [facility] [address], [place] [phone] Additional Instructions: f/u already scheduled 03/30/25 Patient Education Scrotal Swelling I, Jody Low, personally scribed for Dr. Maddox on 06/30/2024 09:32:35. . Documentation recorded by the raffiibe, Jody Low, accurately reflects the services(s) I performed and decisions made by me. Authenticated by Dr. Maddox on 06/30/2024 09:35:42. Problem List/Past Medical History Ongoing Arthritis Aspirin long-term use Asthma BPH with elevated PSA Deep vein thrombosis Gout Hydrocele Hyperlipidemia Hypertension Nocturia Personal history of prostate cancer Prostate cancer Scrotal swelling Stress incontinence Urethral stricture in male Weak urine stream Historical Smoker Procedure/Surgical History Hydrocelectomy (05/15/2024), Radical prostatectomy (08/05/2020), Transrectal needle biopsy of prostate (06/17/2020), Appendectomy, Colonoscopy, Knee replacement. Medications allopurinol 300 mg Tab, Oral, Daily amLODIPine 10 mg Tab, Oral, Daily aspirin 81 mg Oral EC Tab, Oral, Daily Fish Oil 1000 mg oral capsule, Oral, Daily hydrochlorothiazide 25 mg oral tablet, Oral, Daily Multi Vitamin+ omeprazole 20 mg Cap-DR, 20 mg= 1 cap(s), Oral, Daily simvastatin 20 mg Tab, Oral, Once a day (at bedtime) Allergies Cipro (Anxiousness) Pork (Hives) erythromycin (Nervousness) Social History Alcohol - Medium Risk, 06/07/2020 Never., 05/23/2024 Substance Abuse - Denies Substance Abuse, 05/23/2024 Never., 05/23/2024 Tobacco - Low Risk, 05/23/2024 Former smoker, quit more than 30 days ago Tobacco Use:. Never Smokeless Tobacco Use:. Cigarettes, Household tobacco concerns: No. Yes, 06/30/2024 Family History Heart disease: Father. Primary malignant neoplasm of female breast: Sister. Immunizations Vaccine Date Status Comments influenza virus vaccine, inactivated 12/31/2023 Recorded zoster vaccine, inactivated 01/03/2023 (more content not included)...[facility] HospitalComment on above:Result Comment: Electronically Signed By: Maia MADDOX MD\.br\Date and Time Signed: 06/30/24 09:35 EDT\.br\Electronically Co-Signed By: Jody Lowbr\Date and Time Co-Signed: 06/30/24 09:33 EDTUrology Office/Clinic Noteon [id number] Office/Clinic NoteUrology Office/Clinic Note Chief Complaint ER f/u HPI Staff 74yr old male pt here for ER f/u on 05/23/24. Pt was seen for swelling and pain in right testicle. On 05/15/24 he had hydrocele removed by Dr. Maddox. Pt says swelling/pain has worsened since ER visit. Pt says they tried everything , but nothing has improved pain or swelling. He was given 2 antibiotics and pain medicine. Pain medicine helps with the pain a little bit, but not completely. History of Present Illness Tests reviewed: reviewed UA, ER notes and labs, scrotal US I have reviewed the previous health record information and history for this patient from Dr. Maddoxand external providers. I have reviewed and verified the staff [...] See HPI. Physical Exam Vitals & Measurements HR: 77(Peripheral) RR: 18 BP: 150/81 HT: 70 in HT: 178 cm WT: 99 kg WT: 218.257 lb BMI: 31.25 General Appearance: alert, no distress, well nourished, well developed male. Genitourinary: abnormalL hemiscrotum with mild to mod hydrocele. incision looks fine. scrotum, normal testes, normal urethra, normal epididymis, normal vas deferens/spermatic cord. Flank Pain: none. Bladder: nonpalpable. Assessment/Plan Pt here with his today. 1. Scrotal swelling (N50.89: Other specified disorders of the male genital organs) S/p L hydrocelectomy 05/15/24 - thick, indurated and friable hydrocele sac. Shares swelling had decreased 4 days PO but recurred 2 days later. TB ER 05/23/24 due to testicular pain and swelling after seeing DAO in office. Scrotal US - Multiseptated fluid collection around L testis with some heterogeneous components, could be residual of a large hydrocele. Was given abx given concern for infection. UA today negative for blood and infection. Pt still experiencing bothersome pain. Has not been ableto resume normal activities, just lies down during the day. Advised pt healing can take months. Recommended scrotal support and completion of abx course. -Scrotal support -Apply ice prn -Take Ketorolac 10mg qd/prn #15 for severe pain. Rx sent to [facility]. -Take antiinflammatories to help reduce inflammation -F/u in 1 month 2. Personal history of prostate cancer (Z85.46: Personal history of malignant neoplasm of prostate) PSA: 07/18/21 - <0.13 01/18/22 - <0.13 07/07/22 - <0.13 03/16/23 - <0.13 03/20/24 - <0.13 TRUS/Bx 06/17/20 - G8 (4+4) x 6. S/p radical retropubic prostatectomy 08/05/20 - G7 (4+3). [1] -PSA due 03/2025 Follow-up With When Contact Information VARSHA MCPHERSON, Maia Marie, URL [facility] [address], [place] [address]- [phone] Additional Instructions: 1 month to reassess s/p hydrocelectomy Patient Education Hydrocelectomy, Adult, Care After I, Jody Low, personally scribed for Dr. Maddox on 05/26/2024 13:11:03. . Documentation recorded by the scribeJody, accurately reflects the services(s) I performed and decisions made by me. Authenticated by Dr. Maddox on 05/26/2024 13:13:33. Problem List/Past Medical History Ongoing Arthritis Aspirin long-term use Asthma BPH with elevated PSA Deep vein thrombosis Gout Hydrocele Hyperlipidemia Hypertension Nocturia Personal history of prostate cancer Prostate cancer Scrotal swelling Stress incontinence Urethral stricture in male Weak urine stream Historical Smoker Procedure/Surgical History Hydrocelectomy (05/15/2024), Radical prostatectomy (08/05/2020), Transrectal needle biopsy of prostate (06/17/2020), Appendectomy, Colonoscopy, Knee replacement. Medications acetaminophen-hydrocodone, See Instructions allopurinol 300 mg Tab, Oral, Daily amLODIPine 10 mg Tab, Oral, Daily aspirin 81 mg Oral EC Tab, Oral, Daily doxycycline hyclate 100 mg Tab, 100 mg= 1 tab(s) Fish Oil 1000 mg oral capsule, Oral, Daily hydrochlorothiazide 25 mg oral tablet, Oral, Daily Multi Vitamin+ omeprazole 20 mg Cap-DR, 20 mg= 1 cap(s), Oral, Daily simvastatin 20 mg Tab, Oral, Once a day (at bedtime) sulfamethoxazole-trimethoprim 800 mg-160 mg Tab, See Instructions Allergies Cipro (Anxiousness) Pork (Hives) erythromycin (Nervousness) Social History Alcohol - Medium Risk, 06/07/2020 Never., 05/23/2024 Substance Abuse - Denies Substance Abuse, 05/23/2024 Never., 05/23/2024 Tobacco - Low Risk, (more content not included)...[facility] HospitalComment on above:Result Comment: Electronically Signed By: Maia MADDOX MD\.br\Date and Time Signed: 05/26/24 13:13 EST\.br\Electronically Co-Signed By: Jody Low\.br\Date and Time Co-Signed: 05/26/24 13:11 EST Urology Office/Clinic NoteUrology Office/Clinic Note Chief Complaint Patient is here PO hydrocelectomy done 05/15/24 HPI Staff Patient is here sp L hydrocelectomy done 05/15/24 with scrotal swelling and pain. He said the first 2 days post op were fine. Over the past 6 days it has become progressively more swollen and painful. Pain is 8 on 1-10 scale. Patient denies any seeping from incision. Patient is wearing scrotal support. Patient unable to give UA sample today. Patient denies any urination problems. Review of Systems PHQ Score Initial Depression Screen Score: 0 SCORE no fever, chills, malaise, myalgia. no chest pain, palpitations, or SOB. no abdominal pain, nausea, vomiting. Physical Exam Vitals & Measurements T: 35.9 ???C(Oral) HR: 77(Peripheral) RR: 18 BP: 154/92 HT: 70 in HT: 178 cm WT: 99.6 kg WT: 219.58 lb BMI: 31.44 General: nontoxic. Pt appears in acute pain. He is not able to sit or move comfortably or easily. Grunting & wincing with each movement. Mouth: moist mucosa Lungs: normal respiratory effort Cardio: regular rate, good distal perfusion Abdomen: nondistended, no suprapubic distention or tenderness, no CVA tenderness Neurologic: Grossly normal Skin: No rashes or suspicious lesions : R scrotum/testicle normal. L scrotum roughly the size of a softball, skin is bright red and hotto touch, Minimal bruising. Pt is exquisitely tender. I can barely apply any pressure with my fingers without him wincing in pain. Difficult to get a good exam based on pain. Assessment/Plan 1. Scrotal swelling (N50.89: Other specified disorders of the male genital organs) Sp hydrocelectomy on 05/15/24 w PRW. Red, hot, swollen to pre-op size, and exquisitely tender. Hematoma vs infection. May need scrotal exploration vs abx. Due to severity of pain, will send to ER for pain control, basic labs, imaging. On-call MD (MARTÍN) updated with plan since original surgeon (PRW) out of office today. Ordered: Postoperative follow-up visit, related to the original procedure [id number] Follow-up With When Contact Information [facility] Proceed to ER. F/u pending eval there. Patient Education Hydrocelectomy, Adult, Care After Problem List/Past Medical History Ongoing Arthritis Aspirin long-term use Asthma BPH with elevated PSA Deep vein thrombosis Gout Hydrocele Hyperlipidemia Hypertension Nocturia Personal history of prostate cancer Prostate cancer Stress incontinence Urethral stricture in male Weak urine stream Historical Smoker Procedure/Surgical History Hydrocelectomy (05/15/2024), Radical prostatectomy (08/05/2020), Transrectal needle biopsy of prostate (06/17/2020), Appendectomy, Colonoscopy, Knee replacement. Medications allopurinol 300 mg Tab, Oral, Daily amLODIPine 10 mg Tab, Oral, Daily aspirin 81 mg Oral EC Tab, Oral, Daily Fish Oil 1000 mg oral capsule, Oral, Daily hydrochlorothiazide 25 mg oral tablet, Oral, Daily Multi Vitamin+ omeprazole 20 mg Cap-DR, 20 mg= 1 cap(s), Oral, Daily simvastatin 20 mg Tab, Oral, Once a day (at bedtime) Allergies Cipro (Anxiousness) Pork (Hives) erythromycin (Nervousness) Social History Alcohol - Medium Risk, 06/07/2020 Never., 05/23/2024 Substance Abuse - Denies Substance Abuse, 05/23/2024 Never., 05/23/2024 Tobacco - Low Risk, 05/23/2024 Former smoker, quit more than 30 days ago Tobacco Use:. Cigarettes, 05/23/2024 Family History Heart disease: Father. Primary malignant neoplasm of female breast: Sister. Immunizations Vaccine Date Status Comments influenza virus vaccine, inactivated 12/31/2023 Recorded zoster vaccine, inactivated 01/03/2023 Recorded influenza virus vaccine, inactivated 01/03/2023 Recorded influenza virus vaccine, inactivated 02/07/2022 Recorded SARS-CoV-2 (COVID-19) mRNAMUL.ORD![id number] 02/07/2022 Recorded SARSCoV2 mRNA(betrwwwbf-bzon-bfiqnw) vac 10/25/2021 Recorded influenza virus vaccine, inactivated 01/14/2021 Recorded SARS-CoV-2 (COVID-19) mRNA BNT-162b2 vax 01/14/2021 Recorded influenza virus vaccine, inactivated 01/06/2021 Recorded SARS-CoV-2 (COVID-19) mRNA BNT-162b2 vax 06/18/2020 Recorded SARS-CoV-2 (COVID-19) mRNA-1273 vaccine 05/31/2020 Recorded SARS-CoV-2 (COVID-19) mRNA BNT-162b2 vax 05/27/2020 Recorded 2023-03-23: TPV65 SARS-CoV-2 (COVID-19) Ad26 vaccine 2020 Recorded Pt is unsure which vaccine he had and also does not know the dates influenza virus vaccine, inactivated 01/14/2020 Recorded influenza virus vaccine, inactivated 01/07/2020 Recorded influenza virus vaccine, inactivated 01/13/2019 Recorded zoster vaccine, inactivated 06/23/2018 Recorded zoster vaccine, inactivated 03/06/2018 Recorded pneumococcal 23-valent vaccine 01/08/2018 Recorded influenza virus vaccine, inactivated 01/08/2018 Recorded influenza virus vaccine, inactivated 01/29/2017 Recorded pneumococcal 13-valent vaccine 03/09/2016 Recorded influenza, unspecified form (more content not included)...[facility] HospitalComment on above:Result Comment: Electronically Signed By: BENNIE SANDERS PA-C\Date and Time Signed: 05/27/2507:50 Sylvia 05-15-2024 Specimen: [id number] Received: 05/16/24 Status: JASPAL Howard Num: [id number] Spec Type: Surgical Subm Dr: Maia Maddox MD Tissues: A Hydrocele Sac (LEFT HYDROCELE SAC) Procedures: Sherin BERNSTEIN/Robert L2 Age/ Patient Sex Location Account Attending Physician Yue Delgadillo 74/M [place] [id number] Maia Maddox MD SPEC NUM: [id number] RECD: 05/16/24 STATUS: JASPAL HOWARD NUM: [id number] JEAN CLAUDE: 05/15/24-[address] [facility] [address]: Maia Maddox MD ENTERED: 05/16/24-[address]: Melany Hauser SPEC TYPE: Surgical DEPT: HERIBERTO HARRELL ENTERED BY: [id number] RECV BY: [id number] ORDERED: HE, Gross/Micro L2 ORDERED: HE, Gross/Micro L2 Pathological Diagnosis Hydrocele sac, excision: Features consistent with hydrocele sac. Clinical Information Fluid-filled sac around the left testicle Gross Description Part A is received in formalin labeled with the patients name, date of , and left hydrocele sac are 2 ovoid sheets of blair-pink to suazo-purple, fibromembranous tissue, 5.7 x 3.5 x 0.3 cm, and 4.5 x 2.5 x 0.5 cm. The specimens are smooth and glistening on 1 surface, while the opposing surface is focally adhesed. Serial sections reveal suazo-pink to pale purple, dull and uniform cut surfaces. Logistics Manager sections are submitted in a single cassette. (1, , BS25- 118 A) CPT Codes 58520 Specimen: [id number] Received: 05/16/24 Status: JASPAL Howard Num: [id number] Spec Type: Surgical Subm Dr: Maia Maddox MD Tissues: A Hydrocele Sac (LEFT HYDROCELE SAC) Procedures: Sherin BERNSTEIN/Robert L2 Patient: Yue Delgadillo [id number] (Continued) Signed (signature on file) Ella Funes MD 05/19/[address] [place] [address] Physician GroupCOMPREHENSIVE METABOLIC PANELon [id number] [Mass/Vol]4.8 g/dLNormal3.2-5.3PHighland District Hospital Comment on above:Performed By: #### AMANDA, 84603-5 #### [facility] ([id number]) [address], [address] [place], [place] [address]JMN [Catalytic activity/Vol]94 U/HFjrnrh82-079NuwRdujub [facility] HospitalComment on above:Performed By: #### AMANDA, 62159-3 #### [facility] ([id number]) [address], [address] [place], [place] [address]UWM [Catalytic activity/Vol]25 U/LNormal0-40ProAspire Behavioral Health HospitalComment on above:Performed By: #### AMANDA, 71029-8 #### [facility] ([id number]) [address], [address] [place], [place] [address]Kxbhk gap [Moles/Vol]11 mmol/LNormal5-15ProAspire Behavioral Health HospitalComment on above:Performed By: #### AMANDA, 50376-1 #### [facility] ([id number]) [address], [address] [place], [place] [address]SVZ [Catalytic activity/Vol]24 U/LNormal0-41ProAspire Behavioral Health HospitalComment on above:Performed By: #### AMANDA, 08393-7 #### [facility] ([id number]) [address], [address] [place], [place] [address]Bexvvpyou [Mass/Vol]0.7 mg/dLNormal0.3-1.2PHighland District HospitalComment on above:Performed By: #### AMANDA, 37408-0 #### [facility] ([id number]) [address], [address] [place], [place] [address]Dzwesiw [Mass/Vol]10.0 mg/dLNormal8.5-10.5PHighland District HospitalComment on above:Performed By: #### AMANDA, 14809-5 #### [facility] ([id number]) [address], [address] [place], [place] [address]Rbqjcjqr [Moles/Vol]103 mmol/GFodcyb11-888EaqYaesfsAspire Behavioral Health HospitalComment on above:Performed By: #### AMANDA, 25599-7 #### [facility] ([id number]) [address], [address] [place], [place] [address]UT2 [Moles/Vol]28 mmol/HLbltdx63-97JfgZbmqmmHighland District Hospital Comment on above:Performed By: #### AMANDA, 88891-7 #### [facility] ([id number]) [address], [address] [place] [address]Llufakoosm [Mass/Vol]1.21 mg/dLNormal0.60-1.30ProAspire Behavioral Health HospitalComment on above:Result Comment: METHOD TRACEABLE TO IDMS STANDARD Performed By: #### AMANDA, 94402-0 #### [facility] ([id number]) [address], [address] [place], [place] [address]WVT/1.73 sq M.predicted among non-blacks MDRD (S/P/Bld) [Vol rate/Area]63 mL/min/{1.73_m2}Normal>59ProAspire Behavioral Health HospitalComment on above:Result Comment: Reported eGFR is based on the CKD-EPI 2020 equation that does not use a race coefficient.Performed By: #### AMANDA, 37869-3 #### [facility] ([id number]) [address], [address] [place], [place] [address]Uuaqvjg [Mass/Vol]93 mg/cCGnmrie37-43JwyWjvykrAspire Behavioral Health Hospital Comment on above:Performed By: #### AMANDA, 96176-9 #### [facility] ([id number]) [address] [place], [place] [address]Fzgilfvkr [Moles/Vol]4.0 mmol/LNormal3.5-5.0ProAspire Behavioral Health HospitalComment on above:Performed By: #### AMANDA, 14812-4 #### [facility] ([id number]) [address], [address] [place], [place] [address]Cypmafy [Mass/Vol]7.8 g/dLNormal6.0-8.0ProAspire Behavioral Health HospitalComment on above:Performed By: #### AMANDA, 37312-7 #### [facility] ([id number]) [address], [address] [place], [place] [address]Tdaiqq [Moles/Vol]142 mmol/NBupjve112-144NnkAogxaj [facility] HospitalComment on above:Performed By: #### AMANDA, 94454-2 #### [facility] ([id number]) [address], [address] [place], [place] [address]Btzr nitrogen [Mass/Vol]14 mg/dLNormal5-27ProAspire Behavioral Health HospitalCombeaumont hospital on above:Performed By: #### AMANDA, 65797-2 #### [facility] ([id number]) [address], [address] [place], [place] [address]Zkopw 1995 panelon 71-32-9208Qotoyjnovyu [Mass/Vol]184 mg/dL Vsbooo113-157PwdLkvvfeMercy Health Willard HospitalCombeaumont hospital on above:Performed By: ###April PATEL, 02286-3 #### [facility] ([id number]) [address], [address] [place], [place] [address]Tpahcvmcmov in HDL [Mass/Vol]53 mg/dLNormal>39ProAspire Behavioral Health HospitalComment on above:Result Comment: HDL <40 mg/dL - High Risk HDL > or = 40mg/dL- Desirable HDL >60 mg/dL - Negative Risk Performed By: #### AMANDA, 23458-2 #### [facility] ([id number]) [address], [address] [place], [place] [address]Emdcqydghdb in LDL [Mass/Vol]109 mg/dLNormal<130ProAspire Behavioral Health HospitalCombeaumont hospital on above:Result Comment: LDL <100 mg/dL - Desirable LDL >160 mg/dL - High Risk Performed By: #### AMANDA, 63039-3 #### [facility] ([id number]) [address], [address] [place], [place] [address]Zyujotdkfne in VLDL [Mass/Vol]22 mg/dLNormal0-30ProAspire Behavioral Health HospitalComment on above:Performed By: #### AMANDA, 77290-1 #### [facility] ([id number]) [address], [address] [place], [place] [address]DEQSOLJLMBO:HDL3.8Rfgiaf5.0-5.0ProAspire Behavioral Health HospitalComment on above:Performed By: #### AMANDA, 03138-2 #### [facility] ([id number]) [address], [address] [place], [place] [address]Zaimyfpissdl [Mass/Vol]111 mg/tGVzzezr07-975EdrLmixyv [facility] HospitalComment on above:Performed By: #### AMANDA, 41840-3 #### [facility] ([id number]) [address], [address] [place], [place] [address]Acefivdekq Visit Summaryon 63-02-3782Wpslroaclv Visit Summary Ambulatory Visit Summary YUE DELGADILLO :1950 Visit Date:03/31/2024 Ambulatory Visit Instructions Your Diagnosis Personal history of prostate cancer Stress incontinence Hydrocele Tests Performed US Scrotum (Contents) -- Results Pending -- Please visit your patient portal for your results or contact your primary care physician. Your Care Team Attending Physician - VARSHA MCPHERSON, Maia Marie Primary Care Physician - BRIANNA BRUNNER MD [...] Where: [facility] [address] , [place] [address]- Medications What How Much When Instructions Unchanged [...] including vitamins, herbs, eye drops, creams, and pfcn-ncz-eibcujn medicines. ??? Any problems you or family [...] testicle or the tube that carries sperm outof the testicle (vas deferens). ??? Infection. ??? [...] drink energy drinks or (more content not included)...[facility] HospitalUrology Office/Clinic Noteon [id number] Office/Clinic Note Urology Office/Clinic Note Chief Complaint [...] URL [facility] [address], [place] [address]- Additional Instructions: scrotal US (wo appt, will [...] capsule, Oral, Daily hydrochlor (more content not included)...[facility] Comment on above:Result Comment: Electronically Signed By: Maia MADDOX MD\.br\Date and Time Signed: 03/31/24 09:45 EST\.br\Electronically Co-Signed By: Audrey Choudhury\.br\Date and Time Co-Signed: 03/31/24 09:44 [id number] 01-08-2024 36Line will be removed. By Valentin. Orders Given.[facility]36I called and spoke with Ms Stephens the daughter she left message for Chanelle Colon his med coordinator to return my call.[facility]36The patient's midline has failed. Please have home care go out and remove. They were going to send him to the emergency department for replacement, but I am transitioning him to oral antibiotics, so do not have him go to the emergency department.[facility] CompanyTemedicine 01-08-2024 [id number] Yue Delgadillo 1950 M [facility] Provider Department [place] 01/08/2024 DARIEN AMATO [facility] No family history on file Level of Service:97793 DC OFFICE/OUTPATIENT ESTABLISHED MOD MDM 30 [facility] [id number] Yue Delgadillo 1950 [facility] Provider Department [place] 01/08/2024 DARIEN AMATO [facility] No family history on fileNormalUniversity [address] [id number] called in regarding patient's 01/08/24 appointment. He tested positive for Covid on Sunday and she tested positive this morning they would like to know if he should still keep the 01/08/24 appointment or reschedule. Please adviseNormalUniversity of [facility] [id number] [id number] Yue Delgadillo 1950 Date Provider Department [place] 01/04/2024 DARIEN AMATO [facility] No family history on fileNormalUniversSelect Medical [facility] [place]36on [id number] patient.[facility] CompanyTelephoneon [id number] Yue Delgadillo 1950 M Date Provider Department Center 01/03/2024 DARIEN AMATO [facility] No family history on fileNormalUniversity [facility] HospitalBacteria identified Aer cx Nom (Bld)on 72-84-8408Dodieym comment (Unsp spec) [Interp]NO GROWTH 5 DAYSProMediid Health SystemProKeenan Private Hospital SystemCBC AND AUTO DIFFon 71-21-0507TLAGQOPO BASOPHIL0.0 X10E9/LNormal0.0-0.2[facility] Comment on above:Performed By: #### CBCA, BMP #### [facility] ([id number]) [address], [address] [place], [place] [address]LINVKLQA NEUTROPHIL6.6 X10E9/LNormal1.5-6.6ProTrihealth Mccullough-Hyde Memorial HospitalComment on above:Performed By: #### CBCA, BMP #### [facility] ([id number]) [address], [address] [place], [place] [address]Amzoleovg/100 WBC (Bld)0.3 %[facility] Comment on above:Performed By: #### CBCA, BMP #### [facility] ([id number]) [address], [address] [place], [place] [address]Kdbnoghticv (Bld) [#/Vol]0.2 10*3/uLNormal0.0-0.4ProTrihealth Mccullough-Hyde Memorial HospitalComment on above:Performed By: #### CBCA, BMP #### [facility] ([id number]) [address], [address] [place], [place] [address]Xrkvzhxvwcg/100 WBC (Bld)2.1 %NormalSelect Medical Specialty Hospital - [facility] Comment on above:Performed By: #### CBCA, BMP #### [facility] ([id number]) [address], [address] [place], [place] [address]Vgtazcqwqjl distribution width (RBC) [Ratio]14.4 %Normal 11.5-15.0ProPeoples Hospital HospitalComment on above:Performed By: #### CBCA, BMP #### [facility] ([id number]) [address], [address] [place], [place] [address]Qhumualjwe (Bld) [Volume fraction]51.0 %Rntr42-55FdnYqlrqd [facility] HospitalComment on above:Performed By: #### CBCA, BMP #### [facility] ([id number]) [address], [address] [place], [place] [address]Jxbxxbtxar (Bld) [Mass/Vol]17.9 g/rPKohs79.0-17.0ProPeoples Hospital HospitalComment on above:Performed By: #### CBCA, BMP #### [facility] ([id number]) [address], [address] [place], [place] [address]Qzjplzujair (Bld) [#/Vol]1.0 10*3/uLNormal1.0-3.5ProMedica Fort [facility]uderdale HospitalComment on above:Performed By: #### CBCA, BMP #### [facility] ([id number]) [address], [address] [place], [place] [address]Ggntzrdgftc/100 WBC (Bld)12.0 %NormalProTrihealth [facility] Comment on above:Performed By: #### CBCA, BMP #### [facility] ([id number]) [address], [address] [place], [place] [address]UYX (RBC) [Entitic mass]32.5 bbWzlafk69-33YqaHmtsmo [place] HospitalComment on above:Performed By: #### CBCA, BMP #### [facility] ([id number]) [address], [address] [place], [place] [address]QJEV (RBC) [Mass/Vol]35.1 g/xBZwdzia76-25KcvJulhig [place] HospitalComment on above:Performed By: #### CBCA, BMP #### [facility] ([id number]) [address], [address] [place], [place] [address]CGD (RBC) [Entitic vol]93 xTGkkqui64-780KiqUowzdm [place] HospitalComment on above:Performed By: #### CBCA, BMP #### [facility] ([id number]) [address], [address] [place], [place] [address]Sfumdzjei (Bld) [#/Vol]0.9 10*3/uLNormal0-0.9ProTogus Va Medical Centerca [place] HospitalComment on above:Performed By: #### CBCA, BMP #### [facility] ([id number]) [address], [address] [place], [place] [address]Qnggxhibn/100 WBC (Bld)10.2 %NormalSelect Medical Specialty Hospital - [facility] Comment on above:Performed By: #### CBCA, BMP #### [facility] ([id number]) [address], [address] [place], [place] [address]Oaexglfcoxf/100 WBC (Bld)75.4 %NormalSelect Medical Specialty Hospital - [place] Comment on above:Performed By: #### CBCA, BMP #### [facility] ([id number]) [address], [address] [place], [place] [address]Psbxgrpb mean volume (Bld) [Entitic vol]8.6 fLNormal7-12 [facility] HospitalComment on above:Performed By: #### CBCA, BMP #### [facility] ([id number]) [address], [address] [place], [place] [address]Uimmpwmiw (Bld) [#/Vol]138 10*3/xXFgd774-213XwpPrepnuTrihealth Mccullough-Hyde Memorial HospitalComment on above:Performed By: #### CBCA, BMP #### [facility] ([id number]) [address], [address] [place], [place] [address]MGL COUNT5.51 X10E12/LNormal4.10-5.70[facility] Comment on above:Performed By: #### CBCA, BMP #### [facility] ([id number]) [address], [address] [place], [place] [address]KCW (Bld) [#/Vol]8.7 10*3/uLNormal4.0-11.0Select [facility] Specialty Hospital - ColumbusComment on above:Performed By: #### CBCA, BMP #### [facility] ([id number]) [address], [address] [place], [place] [address]WGF auto differentialon 87-89-3708Zruujmfea (Bld) [#/Vol]0.0 10*3/uLKettering Health PrebleBasophils/100 WBC (Bld)0.3 %[facility] PrebleEosinophils (Bld) [#/Vol]0.2 10*3/uLKettering Health PrebleEosinophils/100 WBC (Bld)2.1 %[facility] PrebleErythrocyte distribution width (RBC) [Ratio]14.4 %11.5 - 15.0 %[facility] PrebleHematocrit (Bld) [Volume fraction]51.0 %High39 - 49 %[facility] PrebleHemoglobin (Bld) [Mass/Vol] 17.9 g/eJVlsw93.0 - 17.0 g/dLKettering Health PrebleInterpretation and review of laboratory resultsAbnormalKettering Health PrebleLymphocytes (Bld) [#/Vol]1.0 10*3/uLKettering Health PrebleLymphocytes/100 WBC (Bld)12.0 %TriHealthH (RBC) [Entitic mass]32.5 pg27 - 34 pgProMedica Health SystemMCHC (RBC) [Mass/Vol]35.1 g/dL32 - 36 g/dLKettering Health PrebleMCV (RBC) [Entitic vol]93 fL80 - 100 fLPHocking Valley Community Hospital SystemMonocytes (Bld) [#/Vol]0.9 10*3/uLKettering Health PrebleMonocytes/100 WBC (Bld)10.2 %[facility] SystemNeutrophils (Bld) [#/Vol]6.6 10*3/uLOhioHealth Marion General Hospital SystemNeutrophils/100 WBC (Bld)75.4 % [facility] SystemPlatelet mean volume (Bld) [Entitic vol]8.6 fL7 - 12 fL [facility] SystemPlatelets (Bld) [#/Vol]138 10*3/uLLowKettering Health PrebleRBC (Bld) [#/Vol]5.51 10*6/uLOhioHealth Marion General Hospital SystemWBC corrected for nucl RBC Auto (Bld) [#/Vol]8.7G[facility] Towanda Memorial HospitalBASIC METABOLIC PANLon 78-38-0522Zhnhf gap [Moles/Vol]10 mmol/LNormal5-15Select [facility] Hospital - ColumbusComment on above:Performed By: #### ROXANA BMP #### [facility] ([id number]) [address], [address] [place], [place] [address]Mdasvgr [Mass/Vol]9.0 mg/dLNormal8.5-10.5PAdena Health SystemComment on above:Performed By: #### ROXANA, BMP #### [facility] ([id number]) [address], [address] [place], [place] [address]Zmfmekoz [Moles/Vol]103 mmol/QEbpzen79-353QdfNjasscSelect Medical Specialty Hospital - ColumbusComment on above:Performed By: #### CBCYamini, BMP #### [facility] ([id number]) [address], [address] [place], [place] [address]FX6 [Moles/Vol]25 mmol/QNphukw63-23YwfLwachbAdena Health System Comment on above:Performed By: #### ROXANA BMP #### [facility] ([id number]) [address], [address] [place], [place] [address]Lsrfpqvrzl [Mass/Vol]0.93 mg/dLNormal0.60-1.30ProTrihealth Mccullough-Hyde Memorial HospitalComment on above:Result Comment: METHOD TRACEABLE TO IDMS STANDARD Performed By: #### ROXANA BMP #### [facility] ([id number]) [address], [address] [place], [place] [address]PJN/1.73 sq M.predicted among non-blacks MDRD (S/P/Bld) [Vol rate/Area]87 mL/min/{1.73_m2}Normal>59ProTrihealth Mccullough-Hyde Memorial HospitalComment on above: Result Comment: Reported eGFR is based on the CKD-EPI 2020 equation that does not use a race coefficient.Performed By: #### ROXANA BMP #### [facility] ([id number]) [address], [address] [place], [place] [address]Lcuxbef [Mass/Vol]83 mg/gIHiquhv40-97UlePyshpz [facility] [facility] Comment on above:Performed By: #### ROXANA BMP #### [facility] ([id number]) [address] [place], [place] [address]Dyapbzaif [Moles/Vol]3.9 mmol/LNormal3.5-5.0ProTrihealth Mccullough-Hyde Memorial HospitalComment on above:Performed By: #### ROXANA, BMP #### [facility] ([id number]) [address], [address] [place], [place] [address]Fugctm [Moles/Vol]138 mmol/WYblscs239-330YllKfufdh [place] HospitalComment on above:Performed By: #### ROXANA, BMP #### [facility] ([id number]) [address], [address] [place], [place] [address]Lhuf nitrogen [Mass/Vol]21 mg/dLNormal5-27Select [facility] Hospital - ColumbusComment on above:Performed By: #### ROSA SCHMIDT #### [facility] ([id number]) [address] [place] [address], [address] [place], [place] [address]Otknb Metabolic Panelon 09-78-5533Kndma gap [Moles/Vol]10 mmol/L 5 - 15 mmol/[facility] SystemCalcium [Mass/Vol]9.0 mg/dL8.5 - 10.5 mg/dL Pro[facility]icCambridge [facility] Center SystemChloride [Moles/Vol]103 mmol/L98 - 109 mmol/LPrKindred Hospital - Denver Health SystemCO2 [Moles/Vol]25 mmol/L22 - 32 mmol/[facility] Creatinine [Mass/Vol]0.93 mg/dL0.60 - 1.30 mg/dLKettering Health PrebleComment on above:METHOD TRACEABLE TO IDNM STANDARDeGFR (CKD-EPI)non-race ycfqqbbqg62- PINSt. Louis Behavioral Medicine InstituteComment on above: Reported eGFR is based on the CKD-EPI 2020 equation that does not use a race coefficient. Glucose [Mass/Vol]83 mg/dL65 - 99 mg/dLOhioHealth Marion General Hospital SystemPotassium [Moles/Vol]3.9 mmol/L3.5 - 5.0 mmol/[facility] Health SystemSodium [Moles/Vol] 138 mmol/L134 - 146 mmol/[facility] Health SystemUrea nitrogen [Mass/Vol]21 mg/dL5 - 27 mg/dLOhioHealth Marion General Hospital SystemKettering Health PrebleCBC AND AUTO DIFF on 43-98-1234SPDSOJHX BASOPHIL0.1 X10E9/LNormal0.0-0.2PAdena Health System Comment on above:Performed By: #### ROSA SCHMIDT #### [facility] ([id number]) [address] [place] [address] [address] [place], [place] [address]PNNPCKPH NEUTROPHIL5.3 X10E9/LNormal1.5-6.6Select [facility] Specialty Hospital - ColumbusComment on above:Performed By: #### ROSA SCHMIDT #### [facility] ([id number]) [address] [place] [address] [address] [place], [place] [address]Mxevkrwlg/100 WBC (Bld)0.7 %NormalSelect Medical Specialty Hospital - [place] Comment on above:Performed By: #### CBCA, BMP #### [facility] ([id number]) [address], [address] [place], [place] [address]Vzcphyptntc (Bld) [#/Vol]0.1 10*3/uLNormal0.0-0.4ProPeoples Hospital HospitalComment on above:Performed By: #### CBCA, BMP #### [facility] ([id number]) [address], [address] [place], [place] [address]Ssahioqxsyi/100 WBC (Bld)1.5 %NormalSelect Medical Specialty Hospital - [place] Comment on above:Performed By: #### CBCA, BMP #### [facility] ([id number]) [address], [address] [place], [place] [address]Goywzlsmyma distribution width (RBC) [Ratio]14.7 %Normal 11.5-15.0ProPeoples Hospital HospitalComment on above:Performed By: #### CBCA, BMP #### [facility] ([id number]) [address] [place], [place] [address]Aliwtkdxuz (Bld) [Volume fraction]47.1 %Maplin21-10MjzDyplcq [place] HospitalComment on above:Performed By: #### CBCA, BMP #### [facility] ([id number]) [address], [address] [place], [place] [address]Viikmeyrbs (Bld) [Mass/Vol]16.5 g/qBLxgplw34.0-17.0ProPeoples Hospital HospitalComment on above:Performed By: #### CBCA, BMP #### [facility] ([id number]) [address], [address] [place], [place] [address]Xddkequybjf (Bld) [#/Vol]1.6 10*3/uLNormal1.0-3.5[facility]ica [place] HospitalComment on above:Performed By: #### CBCA, BMP #### [facility] ([id number]) [address], [address] [place], [place] [address]Pdgdnbytpvq/100 WBC (Bld)19.8 %NormalProTogus Va Medical Centerca [facility] [place] Comment on above:Performed By: #### CBCA, BMP #### [facility] ([id number]) [address], [address] [place], [place] [address]EET (RBC) [Entitic mass]32.3 zcSizjip82-44NwoYnnvzj [place] HospitalComment on above:Performed By: #### CBCA, BMP #### [facility] ([id number]) [address], [address] [place], [place] [address]DRVD (RBC) [Mass/Vol]35.0 g/uXNathyo60-87VpjWkmiig [place] HospitalComment on above:Performed By: #### CBCA, BMP #### [facility] ([id number]) [address], [address] [place], [place] [address]GRR (RBC) [Entitic vol]92 zQEvlocf46-507GsxMscxpt [place] HospitalComment on above:Performed By: #### CBCA, BMP #### [facility] ([id number]) [address], [address] [place], [place] [address]Fqpbcletm (Bld) [#/Vol]0.9 10*3/uLNormal0-0.9ProMedica [place] HospitalComment on above:Performed By: #### CBCA, BMP #### [facility] ([id number]) [address], [address] [place], [place] [address]Xdhextmcz/100 WBC (Bld)11.6 %NormalProMedica [place] Hospital Comment on above:Performed By: #### CBCA, BMP #### [facility] ([id number]) [address], [address] [place], [place] [address]Gxuwlhvgawk/100 WBC (Bld)66.4 %NormalSelect Medical Specialty Hospital - [place] Comment on above:Performed By: #### CBCA, BMP #### [facility] ([id number]) [address], [address] [place], [place] [address]Grqqyybf mean volume (Bld) [Entitic vol]10.5 fLNormal7-12 [facility]ty Hospital - ColumbusComment on above:Performed By: #### CBCA, BMP #### [facility] ([id number]) [address], [address] [place], [place] [address]Ahetoobjg (Bld) [#/Vol]228 10*3/nVWxedyi602-492FkmKqinmd [place] HospitalComment on above:Performed By: #### CBCA, BMP #### [facility] ([id number]) [address], [address] [place], [place] [address]WWY COUNT5.10 X10E12/LNormal4.10-5.70[facility] Comment on above:Performed By: #### CBCA, BMP #### [facility] ([id number]) [address], [address] [place] [address]DYF (Bld) [#/Vol]8.1 10*3/uLNormal4.0-11.0[facility] Hospital - ColumbusComment on above:Performed By: #### CBCA, BMP #### [facility] ([id number]) [address], [address] [place], [place] [address]LIL auto differentialon 08-57-8682Thtdcegcr (Bld) [#/Vol]0.1 10*3/uLProMedica Health SystemBasophils/100 WBC (Bld)0.7 %[facility] SystemEosinophils (Bld) [#/Vol]0.1 10*3/uLProMedica Health SystemEosinophils/100 WBC (Bld)1.5 %[facility] PrebleErythrocyte distribution width (RBC) [Ratio]14.7 %11.5 - 15.0 %[facility] PrebleHematocrit (Bld) [Volume fraction]47.1 %39 - 49 %[facility] PrebleHemoglobin (Bld) [Mass/Vol]16.5 g/dL13.0 - 17.0 g/dLKettering Health PrebleLymphocytes (Bld) [#/Vol]1.6 10*3/uL [facility] PrebleLymphocytes/100 WBC (Bld)19.8 %[facility] PrebleMCH (RBC) [Entitic mass]32.3 pg27 - 34 pgPOhioHealth Riverside Methodist HospitalMCHC (RBC) [Mass/Vol]35.0 g/dL32 - 36 g/dLKettering Health PrebleMCV (RBC) [Entitic vol]92 fL80 - 100 [facility] Medical CenterMonocytes (Bld) [#/Vol]0.9 10*3/uLKettering Health PrebleMonocytes/100 WBC (Bld)11.6 %[facility] PrebleNeutrophils (Bld) [#/Vol]5.3 10*3/uLKettering Health PrebleNeutrophils/100 WBC (Bld)66.4 % [facility] PreblePlatelet mean volume (Bld) [Entitic vol]10.5 fL7 - 12 fL [facility] PreblePlatelets (Bld) [#/Vol]228 10*3/[facility] RBC (Bld) [#/Vol]5.10 10*6/[facility] ServicesWBC corrected for nucl RBC Auto (Bld) [#/Vol]8.1PSelect Specialty Hospital - Camp HillBASIC METABOLIC PANLon 74-10-0570Mpjgr gap [Moles/Vol]11 mmol/LNormal5-15[facility] Hospital - ColumbusComment on above:Performed By: #### CBCA, BMP #### [facility] ([id number]) [address], [address] [place], [place] [address]Fwsplts [Mass/Vol]9.0 mg/dLNormal8.5-10.5PAdena Health SystemComment on above:Performed By: #### ROXANA, BMP #### [facility] ([id number]) [address], [address] [place], [place] [address]Hkwgndmu [Moles/Vol]106 mmol/SSaceib77-869JjnEcihbn [place] HospitalComment on above:Performed By: #### ROXANA, BMP #### [facility] ([id number]) [address], [address] [place], [place] [address]OY9 [Moles/Vol]22 mmol/RCgjoah17-22CpiCnxwslAdena Health System Comment on above:Performed By: #### ROXANA, BMP #### [facility] ([id number]) [address], [address] [place], [place] [address]Oxnmwgkoln [Mass/Vol]0.94 mg/dLNormal0.60-1.30ProTrihealth Mccullough-Hyde Memorial HospitalComment on above:Result Comment: METHOD TRACEABLE TO IDMS STANDARD Performed By: #### ROXANA, BMP #### [facility] ([id number]) [address] [address] [address] [place], [place] [address]HSU/1.73 sq M.predicted among non-blacks MDRD (S/P/Bld) [Vol rate/Area]86 mL/min/{1.73_m2}Normal>59ProTrihealth Mccullough-Hyde Memorial HospitalComment on above: Result Comment: Reported eGFR is based on the CKD-EPI 2021 equation that does not use a race coefficient.Performed By: #### ROXANA, BMP #### [facility] ([id number]) [address], [address] [place], [place] [address]Xgractw [Mass/Vol]98 mg/oNSwheqz34-64KyhSlqcpy [facility] Comment on above:Performed By: #### ROXANA, BMP #### [facility] ([id number]) [address], [address] [place], [place] [address]Rhzbfzliv [Moles/Vol]4.1 mmol/LNormal3.5-5.0ProTrihealth Mccullough-Hyde Memorial HospitalComment on above:Performed By: #### ROXANA, BMP #### [facility] ([id number]) [address], [address] [place], [place] [address]Njqsdc [Moles/Vol]139 mmol/FWbnkjx624-449RhqBjmjcy [place] HospitalComment on above:Performed By: #### CBCYamini, BMP #### [facility] ([id number]) [address], [address] [place], [place] [address]Oggb nitrogen [Mass/Vol]22 mg/dLNormal5-27ProTrihealth Mccullough-Hyde Memorial HospitalComment on above:Performed By: #### ROXANA, BMP #### [facility] ([id number]) [address], [address] [address]Gyzfs Metabolic Panelon 79-60-9895Kbwqw gap [Moles/Vol]11 mmol/L 5 - 15 mmol/[facility] Health SystemCalcium [Mass/Vol]9.0 mg/dL8.5 - 10.5 mg/dL [facility] SystemChloride [Moles/Vol]106 mmol/L98 - 109 mmol/[facility] Health SystemCO2 [Moles/Vol]22 mmol/L22 - 32 mmol/[facility] Creatinine [Mass/Vol]0.94 mg/dL0.60 - 1.30 mg/dLKettering Health PrebleComment on above:METHOD TRACEABLE TO IDNM STANDARDeGFR (CKD-EPI)non-race ewogpnuve18- [facility] Center PortsmouthComment on above: Reported eGFR is based on the CKD-EPI 2020 equation that does not use a race coefficient. Glucose [Mass/Vol]98 mg/dL65 - 99 mg/dLKettering Health PreblePotassium [Moles/Vol]4.1 mmol/L3.5 - 5.0 mmol/LProMedica Health SystemSodium [Moles/Vol] 139 mmol/L134 - 146 mmol/[facility] Health SystemUrea nitrogen [Mass/Vol]22 mg/dL5 - 27 mg/dLKettering Health PrebleProMercy Health St. Vincent Medical CenterCBC AND AUTO DIFF on 12-65-8134FMSIGBMH BASOPHIL0.0 X10E9/LNormal0.0-0.2PAdena Health System Comment on above:Performed By: #### CBCA, BMP #### [facility] ([id number]) [address], [address] [place], [place] [address]KJOWVAUR TOJCEWMQTM56.7 X10E9/LHigh1.5-6.6[facility] Hospital - ColumbusComment on above:Performed By: #### CBCYamini, BMP #### [facility] ([id number]) [address], [address] [place], [place] [address]Yovzwxlri/100 WBC (Bld)0.2 %[facility] Comment on above:Performed By: #### CBCA, BMP #### [facility] ([id number]) [address], [address] [place], [place] [address]Pmgganzwtkj (Bld) [#/Vol]0.0 10*3/uLNormal0.0-0.4[facility] Hospital - ColumbusComment on above:Performed By: #### CBCA, BMP #### [facility] ([id number]) [address] [place], [place] [address]Ktxrjlixbze/100 WBC (Bld)0.1 %[facility] Comment on above:Performed By: #### CBCA, BMP #### [facility] ([id number]) [address], [address] [place], [place] [address]Whcqinkycwp distribution width (RBC) [Ratio]14.5 %Normal 11.5-15.0[facility] Hospital - ColumbusComment on above:Performed By: #### CBCA, BMP #### [facility] ([id number]) [address], [address] [place], [place] [address]Qtwbmbdcdl (Bld) [Volume fraction]46.7 %Exgyyc00-84JffHicbvk [facility] [place] HospitalComment on above:Performed By: #### CBCA, BMP #### [facility] ([id number]) [address], [address] [place], [place] [address]Cvjbzwdjum (Bld) [Mass/Vol]16.6 g/yMDcsdkn71.0-17.0[facility] HospitalComment on above:Performed By: #### CBCA, BMP #### [facility] ([id number]) [address], [address] [place], [place] [address]Kmwtvozpyrb (Bld) [#/Vol]1.0 10*3/uLNormal1.0-3.5[facility] [place] HospitalComment on above:Performed By: #### CBCA, BMP #### [facility] ([id number]) [address], [address] [place], [place] [address]Rvtpyaeamro/100 WBC (Bld)7.9 %NormalProTogus Va Medical Centerca [facility] Comment on above:Performed By: #### CBCA, BMP #### [facility] ([id number]) [address], [address] [place], [place] [address]AXL (RBC) [Entitic mass]32.7 onDsjbdx08-80TprJmjctl [facility] HospitalComment on above:Performed By: #### CBCA, BMP #### [facility] ([id number]) [address], [address] [place], [place] [address]SKIT (RBC) [Mass/Vol]35.5 g/kZNfjamk50-11HsiFwugwz [place] HospitalComment on above:Performed By: #### CBCA, BMP #### [facility] ([id number]) [address], [address] [place], [place] [address]ANA (RBC) [Entitic vol]92 uDEykzuk44-609YnyMdobai [place] HospitalComment on above:Performed By: #### CBCA, BMP #### [facility] ([id number]) [address], [address] [place], [place] [address]Asznyhndl (Bld) [#/Vol]1.1 10*3/uLHigh0-0.9[facility] [place] HospitalComment on above:Performed By: #### CBCA, BMP #### [facility] ([id number]) [address], [address] [place] [address]Puyeeqlhz/100 WBC (Bld)8.6 %NormalKindred Hospital Limaca [facility] Comment on above:Performed By: #### CBCA, BMP #### [facility] ([id number]) [address], [address] [place], [place] [address]Ecafmkicgzh/100 WBC (Bld)83.2 %NormalKindred Hospital Limaca [facility] Comment on above:Performed By: #### CBCA, BMP #### [facility] ([id number]) [address], [address] [place], [place] [address]Bpplutjo mean volume (Bld) [Entitic vol]8.1 fLNormal7-12 [facility] [place] HospitalComment on above:Performed By: #### CBCA, BMP #### [facility] ([id number]) [address], [address] [place], [place] [address]Qasdjussv (Bld) [#/Vol]160 10*3/eADoqdif308-898EczIflgpm [place] HospitalComment on above:Performed By: #### CBCA, BMP #### [facility] ([id number]) [address], [address] [place], [place] [address]ZCQ COUNT5.07 X10E12/LNormal4.10-5.70[facility] [place] [facility] Comment on above:Performed By: #### CBCA, BMP #### [facility] ([id number]) [address], [address] [place], [place] [address]FII (Bld) [#/Vol]12.8 10*3/uLHigh4.0-11.0[facility] - ColumbusComment on above:Performed By: #### CBCA, BMP #### [facility] ([id number]) [address], [address] [place], [place] [address]QMA auto differentialon [id number] (Bld) [#/Vol]0.0 10*3/uLOhioHealth Marion General Hospital SystemBasophils/100 WBC (Bld)0.2 %[facility]bleEosinophils (Bld) [#/Vol]0.0 10*3/uLOhioHealth Marion General Hospital SystemEosinophils/100 WBC (Bld)0.1 %[facility] PrebleErythrocyte distribution width (RBC) [Ratio]14.5 %11.5 - 15.0 %[facility] PrebleHematocrit (Bld) [Volume fraction]46.7 %39 - 49 %[facility] PrebleHemoglobin (Bld) [Mass/Vol]16.6 g/dL13.0 - 17.0 g/dLKettering Health PrebleInterpretation and review of laboratory resultsAbnormalKettering Health PrebleLymphocytes (Bld) [#/Vol]1.0 10*3/uLKettering Health PrebleLymphocytes/100 WBC (Bld)7.9 %[facility] PrebleMCH (RBC) [Entitic mass]32.7 pg27 - 34 pgPOhioHealth Riverside Methodist HospitalMCHC (RBC) [Mass/Vol]35.5 g/dL32 - 36 g/dLKettering Health PrebleMCV (RBC) [Entitic vol]92 fL80 - 100 [facility] CenterMonocytes (Bld) [#/Vol]1.1 10*3/uLHigh [facility] PrebleMonocytes/100 WBC (Bld)8.6 %[facility] Neutrophils (Bld) [#/Vol]10.7 10*3/uLHighKettering Health PrebleNeutrophils/100 WBC (Bld)83.2 %[facility] SystemPlatelet mean volume (Bld) [Entitic vol] 8.1 fL7 - 12 fLPHocking Valley Community Hospital SystemPlatelets (Bld) [#/Vol]160 10*3/uL [facility] SystemRBC (Bld) [#/Vol]5.07 10*6/uLOhioHealth Marion General Hospital SystemWBC corrected for nucl RBC Auto (Bld) [#/Vol]12.8HighEdgerton Hospital and Health Services SystemBASIC METABOLIC PANLon [id number] gap [Moles/Vol]12 mmol/LNormal5-15ProPe[facility] Hospital HospitalComment on above:Performed By: #### ROXANA, BMP #### [facility] ([id number]) [address], [address] [place], [place] [address]Ovsranx [Mass/Vol]9.2 mg/dLNormal8.5-10.5POhioHealth Van Wert Hospital HospitalComment on above:Performed By: #### ROXANA, BMP #### [facility] ([id number]) [address], [address] [place], [place] [address]Zdznrttv [Moles/Vol]103 mmol/LLqdgrj72-037UnjJrfjiu [place] HospitalComment on above:Performed By: #### ROXANA, BMP #### [facility] ([id number]) [address], [address] [place], [place] [address]OH4 [Moles/Vol]21 mmol/MAgk63-09RysUjooyn [place] HospitalComment on above:Performed By: #### CBCYamini, BMP #### [facility] ([id number]) [address], [address] [place], [place] [address]Fjyeihqsbr [Mass/Vol]0.90 mg/dLNormal0.60-1.30[facility] HospitalComment on above:Result Comment: METHOD TRACEABLE TO IDMS STANDARD Performed By: #### ROXANA, BMP #### [facility] ([id number]) [address] [address]zIDS (CKD-EPI) NON-RACE DEPENDENT>90Normal>59ProTrihealth Mccullough-Hyde Memorial HospitalComment on above:Result Comment: Reported eGFR is based on the CKD-EPI 2020 equation that does not use a race coefficient.Performed By: #### ROSA SCHMIDT #### [facility] ([id number]) [address] [address]Iltqjpu [Mass/Vol]127 mg/qHUcdi88-26GlvAhhogfTrihealth Mccullough-Hyde Memorial Hospital Comment on above:Performed By: #### ROXANA BMP #### [facility] ([id number]) [address] [address]Yikccqpvv [Moles/Vol]4.1 mmol/LNormal3.5-5.0ProTrihealth Mccullough-Hyde Memorial HospitalComment on above:Performed By: #### ROXANA BMP #### [facility] ([id number]) [address] [address]Pnszrx [Moles/Vol]136 mmol/HZyegad231-333WfjTsdjrn [place] HospitalComment on above:Performed By: #### ROXANA, BMP #### [facility] ([id number]) [address] [address]Luox nitrogen [Mass/Vol]16 mg/dLNormal5-27ProTrihealth Mccullough-Hyde Memorial HospitalComment on above:Performed By: #### ROXANA, BMP #### [facility] ([id number]) [address] [address]Uprmz Metabolic Panelon 26-31-3444Bdjhj gap [Moles/Vol]12 mmol/L 5 - 15 mmol/LProMedica Health SystemCalcium [Mass/Vol]9.2 mg/dL8.5 - 10.5 mg/dL [facility] Health SystemChloride [Moles/Vol]103 mmol/L98 - 109 mmol/LProMedica Health SystemCO2 [Moles/Vol]21 mmol/LLow22 - 32 mmol/LProMedica Health System Creatinine [Mass/Vol]0.90 mg/dL0.60 - 1.30 mg/dLKettering Health PrebleComment on above:METHOD TRACEABLE TO IDMS STANDARDeGFR (CKD-EPI)non-race dependent- PINF [facility] PrebleComment on above: Reported eGFR is based on the CKD-EPI 2020 equation that does not use a race coefficient. Glucose [Mass/Vol]127 mg/eYBskj71 - 99 mg/dLKettering Health Preble Interpretation and review of laboratory resultsAbnormalKettering Health Preble Potassium [Moles/Vol]4.1 mmol/L3.5 - 5.0 mmol/[facility] Health SystemSodium [Moles/Vol]136 mmol/L134 - 146 mmol/[facility] HospitalUrea nitrogen [Mass/Vol]16 mg/dL5 - 27 mg/dLGuthrie Towanda Memorial HospitalCBC AND AUTO DIFFon 97-90-3612RBHEUPTI BASOPHIL0.0 X10E9/LNormal0.0-0.2PAdena Health SystemComment on above:Performed By: #### ROXANA BMP #### [facility] ([id number]) [address], [address] [place], [place] [address]JTINKABO NEUTROPHIL7.0 X10E9/LHigh1.5-6.6[facility] - ColumbusComment on above:Performed By: #### ROXANA BMP #### [facility] ([id number]) [address] [place] [address], [address] [place], [place] [address]Gvluiwpgv/100 WBC (Bld)0.2 %NormalSelect Medical Specialty Hospital - Columbus Comment on above:Performed By: #### CBCYamini BMP #### [facility] ([id number]) [address] [place] [address], [address] [place], [place] [address]Knigycnisec (Bld) [#/Vol]0.0 10*3/uLNormal0.0-0.4[facility] Hospital - ColumbusComment on above:Performed By: #### CBCYamini BMP #### [facility] ([id number]) [address] [place], [place] [address]Wxukqebyzlf/100 WBC (Bld)0.1 %NormalSelect Medical Specialty Hospital - Columbus Comment on above:Performed By: #### CBCA, BMP #### [facility] ([id number]) [address], [address] [place], [place] [address]Aeosqqbgwtp distribution width (RBC) [Ratio]14.5 %Normal 11.5-15.0ProTrihealth Mccullough-Hyde Memorial HospitalComment on above:Performed By: #### CBCA, BMP #### [facility] ([id number]) [address] [place], [place] [address]Izkarsynty (Bld) [Volume fraction]49.6 %Dhse28-15WtoBrvmlyTrihealth Mccullough-Hyde Memorial HospitalComment on above:Performed By: #### CBCA, BMP #### [facility] ([id number]) [address] [place], [place] [address]Sjyqfslcha (Bld) [Mass/Vol]17.7 g/jIHagd57.0-17.0[facility] Hospital - ColumbusComment on above:Performed By: #### CBCA, BMP #### [facility] ([id number]) [address] [place], [place] [address]Amlgciffbdg (Bld) [#/Vol]0.5 10*3/uLLow1.0-3.5Pro[facility]ica [facility] Memorial HospitalComment on above:Performed By: #### CBCA, BMP #### [facility] ([id number]) [address], [address] [place], [place] [address]Gchmheovwke/100 WBC (Bld)6.4 %NormalSelect Medical Specialty Hospital - Columbus Comment on above:Performed By: #### CBCA, BMP #### [facility] ([id number]) [address], [address] [place], [place] [address]TTE (RBC) [Entitic mass]32.7 ujHkuidj73-01DajGwteum [place] HospitalComment on above:Performed By: #### CBCYamini, BMP #### [facility] ([id number]) [address], [address] [place], [place] [address]AOBA (RBC) [Mass/Vol]35.8 g/hXMxhiqu39-62KkzWxuhtr [place] HospitalComment on above:Performed By: #### CBCA, BMP #### [facility] ([id number]) [address], [address] [place], [place] [address]XPQ (RBC) [Entitic vol]92 lJScpwtn48-308RhrHttbwr [place] HospitalComment on above:Performed By: #### CBCA, BMP #### [facility] ([id number]) [address], [address] [place], [place] [address]Kneevztzx (Bld) [#/Vol]0.1 10*3/uLNormal0-0.9ProTogus Va Medical Centerca [place] HospitalComment on above:Performed By: #### CBCYamini, BMP #### [facility] ([id number]) [address], [address] [place], [place] [address]Itmeueoce/100 WBC (Bld)1.4 %NormalSelect Medical Specialty Hospital - Columbus Comment on above:Performed By: #### CBCA, BMP #### [facility] ([id number]) [address], [address] [place], [place] [address]Zsdpsucpyfj/100 WBC (Bld)91.9 %NormalSelect Medical Specialty Hospital - Columbus Comment on above:Performed By: #### CBCA, BMP #### [facility] ([id number]) [address], [address] [place], [place] [address]Fuebqzzn mean volume (Bld) [Entitic vol]8.1 fLNormal7-12 [facility] [place] HospitalComment on above:Performed By: #### CBCA, BMP #### [facility] ([id number]) [address], [address] [place], [place] [address]Dsxxtpxfs (Bld) [#/Vol]172 10*3/fJLaawti456-320TrkHiqiuz [place] HospitalComment on above:Performed By: #### CBCA, BMP #### [facility] ([id number]) [address], [address] [place], [place] [address]LKR COUNT5.42 X10E12/LNormal4.10-5.70ProTrihealth M[facility] Memorial Hospital Comment on above:Performed By: #### CBCYamini, BMP #### [facility] ([id number]) [address], [address] [place] [address]CML (Bld) [#/Vol]7.6 10*3/uLNormal4.0-11.0ProTrihealth Mccullough-Hyde Memorial HospitalComment on above:Performed By: #### CBCA, BMP #### [facility] ([id number]) [address], [address] [place] [address]MIA auto differentialon 80-66-2548Ojlwxqjbg (Bld) [#/Vol]0.0 10*3/uLMayo Memorial HospitalMediid Health SystemBasophils/100 WBC (Bld)0.2 %[facility] SystemEosinophils (Bld) [#/Vol]0.0 10*3/uLProKeenan Private Hospital SystemEosinophils/100 WBC (Bld)0.1 %[facility] Hospitaledica Health SystemErythrocyte distribution width (RBC) [Ratio]14.5 %11.5 - 15.0 %[facility]Medica Health SystemHematocrit (Bld) [Volume fraction]49.6 %High39 - 49 %[facility] Health SystemHemoglobin (Bld) [Mass/Vol] 17.7 g/mUHyaa09.0 - 17.0 g/dLKettering Health PrebleInterpretation and review of laboratory resultsAbnormalOhioHealth Marion General Hospital SystemLymphocytes (Bld) [#/Vol]0.5 10*3/uLLowKettering Health PrebleLymphocytes/100 WBC (Bld)6.4 %TriHealthH (RBC) [Entitic mass]32.7 pg27 - 34 pgPOhioHealth Riverside Methodist HospitalMCHC (RBC) [Mass/Vol]35.8 g/dL32 - 36 g/dLProMercy Health St. Vincent Medical CenterMCV (RBC) [Entitic vol]92 fL80 - 100 fLPOhioHealth Riverside Methodist HospitalMonocytes (Bld) [#/Vol]0.1 10*3/uLKettering Health PrebleMonocytes/100 WBC (Bld)1.4 %[facility] PrebleNeutrophils (Bld) [#/Vol]7.0 10*3/uLHighKettering Health PrebleNeutrophils/100 WBC (Bld)91.9 %[facility] PreblePlatelet mean volume (Bld) [Entitic vol]8.1 fL7 - 12 fL [facility] PreblePlatelets (Bld) [#/Vol]172 10*3/[facility] RBC (Bld) [#/Vol]5.42 10*6/[facility] ServicesWBC corrected for nucl RBC Auto (Bld) [#/Vol]7.6G[facility] Towanda Memorial HospitalBASIC METABOLIC PANLon 59-42-3175Ijpnz gap [Moles/Vol]9 mmol/LNormal5-15ProTrihealth Mccullough-Hyde Memorial HospitalComment on above:Performed By: #### CBCYamini, BMP #### [facility] ([id number]) [address], [address] [place], [place] [address]Kksrklo [Mass/Vol]9.0 mg/dLNormal8.5-10.5PAdena Health SystemComment on above:Performed By: #### CBCA, BMP #### [facility] ([id number]) [address], [address] [place], [place] [address]Yyzsvmxv [Moles/Vol]103 mmol/PYmilqr38-306MqkPmobaw [place] HospitalComment on above:Performed By: #### CBCA, BMP #### [facility] ([id number]) [address], [address] [place], [place] [address]TD3 [Moles/Vol]27 mmol/FXoxhgt64-82OicNdfewp [facility] Comment on above:Performed By: #### ROXANA, BMP #### [facility] ([id number]) [address], [address] [place], [place] [address]Dyctqduxtk [Mass/Vol]0.88 mg/dLNormal0.60-1.30ProTrihealth Mccullough-Hyde Memorial HospitalComment on above:Result Comment: METHOD TRACEABLE TO IDMS STANDARD Performed By: #### ROSA SCHMIDT #### [facility] ([id number]) [address] [facility] [address] [place], [place] [address]kEJJ (CKD-EPI) NON-RACE DEPENDENT>90Normal>59ProTrihealth Mccullough-Hyde Memorial HospitalComment on above:Result Comment: Reported eGFR is based on the CKD-EPI 2020 equation that does not use a race coefficient.Performed By: #### ROXANA BMP #### [facility] ([id number]) [address], [address] [place], [place] [address]Gfpmnjo [Mass/Vol]81 mg/aGMhknsf27-51BbzStxili [facility] Comment on above:Performed By: #### ROXANA BMP #### [facility] ([id number]) [address] [place], [place] [address]Lfejiiavl [Moles/Vol]3.9 mmol/LNormal3.5-5.0ProTrihealth Mccullough-Hyde Memorial HospitalComment on above:Performed By: #### ROXANA, BMP #### [facility] ([id number]) [address], [address] [place], [place] [address]Lqadvp [Moles/Vol]139 mmol/NIqagjy233-099WqoFpyarx [place] HospitalComment on above:Performed By: #### ROXANA, BMP #### [facility] ([id number]) [address] [place] [address], [address] [place], [place] [address]Mrle nitrogen [Mass/Vol]14 mg/dLNormal5-27[facility] Hospital - ColumbusComment on above:Performed By: #### ROSA SCHMIDT #### [facility] ([id number]) [address] [address], [address] [place], [place] [address]Zjbjs Metabolic Panelon 09-96-0344Xfzic gap [Moles/Vol]9 mmol/L5 - 15 mmol/[facility] SystemCalcium [Mass/Vol]9.0 mg/dL8.5 - 10.5 mg/dL [facility] SystemChloride [Moles/Vol]103 mmol/L98 - 109 mmol/[facility] Health SystemCO2 [Moles/Vol]27 mmol/L22 - 32 mmol/[facility] Creatinine [Mass/Vol]0.88 mg/dL0.60 - 1.30 mg/dLKettering Health PrebleComment on above:METHOD TRACEABLE TO IDNM STANDARDeGFR (CKD-EPI)non-race dependent- PINF [facility] PrebleComment on above: Reported eGFR is based on the CKD-EPI 2020 equation that does not use a race coefficient. Glucose [Mass/Vol]81 mg/dL65 - 99 mg/dLOhioHealth Marion General Hospital SystemPotassium [Moles/Vol]3.9 mmol/L3.5 - 5.0 mmol/[facility] SystemSodium [Moles/Vol] 139 mmol/L134 - 146 mmol/[facility] Health SystemUrea nitrogen [Mass/Vol]14 mg/dL5 - 27 mg/dLMarshfield Medical Center Beaver Dam SystemCBC AND AUTO DIFF on 76-07-5197LIWFJQDO BASOPHIL0.1 X10E9/LNormal0.0-0.2PAdena Health System Comment on above:Performed By: #### ROSA SCHMIDT #### [facility] ([id number]) [address] [place] [address], [address] [place], [place] [address]WJHOSBMA NEUTROPHIL6.1 X10E9/LNormal1.5-6.6[facility] Hospital - ColumbusComment on above:Performed By: #### ROSA SCHMIDT #### [facility] ([id number]) [address], [address] [place], [place] [address]Jrbmguqkh/100 WBC (Bld)0.9 %NormalSelect Medical Specialty Hospital - [place] Comment on above:Performed By: #### CBCA, BMP #### [facility] ([id number]) [address], [address] [place], [place] [address]Jbnkebreifl (Bld) [#/Vol]0.3 10*3/uLNormal0.0-0.4ProTogus Va Medical Centerca Fort Lauderdale HospitalComment on above:Performed By: #### CBCA, BMP #### [facility] ([id number]) [address], [address] [place], [place] [address]Sgzayxddkaf/100 WBC (Bld)3.1 %NormalSelect Medical Specialty Hospital - [place] Comment on above:Performed By: #### CBCA, BMP #### [facility] ([id number]) [address], [address] [place], [place] [address]Qhbjjgetbkj distribution width (RBC) [Ratio]14.6 %Normal 11.5-15.0ProPeoples Hospital HospitalComment on above:Performed By: #### CBCA, BMP #### [facility] ([id number]) [address], [address] [place], [place] [address]Xfvvwjzwkc (Bld) [Volume fraction]50.3 %Fxqt82-40KthQhcvts [place] HospitalComment on above:Performed By: #### CBCA, BMP #### [facility] ([id number]) [address], [address] [place], [place] [address]Cyvurlockv (Bld) [Mass/Vol]17.6 g/cJEzus92.0-17.0ProPeoples Hospital HospitalComment on above:Performed By: #### CBCA, BMP #### [facility] ([id number]) [address], [address] [place], [place] [address]Shkjgfibhpi (Bld) [#/Vol]1.2 10*3/uLNormal1.0-3.5Pro[facility]ica [place] HospitalComment on above:Performed By: #### CBCA, BMP #### [facility] ([id number]) [address], [address] [place], [place] [address]Hpvetvnpcqc/100 WBC (Bld)13.9 %NormalProMedica [facility] Comment on above:Performed By: #### CBCA, BMP #### [facility] ([id number]) [address], [address] [place], [place] [address]QFB (RBC) [Entitic mass]32.5 fuUvfgca56-83PhrMilmxo [place] HospitalComment on above:Performed By: #### CBCA, BMP #### [facility] ([id number]) [address], [address] [place], [place] [address]FKCH (RBC) [Mass/Vol]35.1 g/mXTedcil75-01HbnYhtihj [place] HospitalComment on above:Performed By: #### CBCA, BMP #### [facility] ([id number]) [address], [address] [place], [place] [address]NMN (RBC) [Entitic vol]93 rAChzkac48-889WsnMrebtl [place] HospitalComment on above:Performed By: #### CBCA, BMP #### [facility] ([id number]) [address], [address] [place], [place] [address]Gvtkyeujo (Bld) [#/Vol]0.8 10*3/uLNormal0-0.9ProMedica [place] HospitalComment on above:Performed By: #### CBCA, BMP #### [facility] ([id number]) [address], [address] [place], [place] [address]Gmausdssc/100 WBC (Bld)9.6 %NormalProMedica [facility] Comment on above:Performed By: #### CBCA, BMP #### [facility] ([id number]) [address], [address] [place], [place] [address]Dgakwzrrxdy/100 WBC (Bld)72.5 %NormalSelect Medical Specialty Hospital - [place] Comment on above:Performed By: #### CBCA, BMP #### [facility] ([id number]) [address], [address] [place], [place] [address]Kpkcjdns mean volume (Bld) [Entitic vol]8.1 fLNormal7-12 [facility] Hospital - ColumbusComment on above:Performed By: #### CBCA, BMP #### [facility] ([id number]) [address], [address] [place], [place] [address]Dwrfzhbip (Bld) [#/Vol]164 10*3/rRFppszn812-979KjuUpjyek [place] HospitalComment on above:Performed By: #### CBCA, BMP #### [facility] ([id number]) [address], [address] [place], [place] [address]YMR COUNT5.43 X10E12/LNormal4.10-5.70[facility] Comment on above:Performed By: #### CBCA, BMP #### [facility] ([id number]) [address], [address] [place], [place] [address]XKG (Bld) [#/Vol]8.5 10*3/uLNormal4.0-11.0[facility] Hospital - ColumbusComment on above:Performed By: #### CBCA, BMP #### [facility] ([id number]) [address], [address] [place], [place] [address]ZPL auto differentialon [id number] (Bld) [#/Vol]0.1 10*3/uLProMedica Health SystemBasophils/100 WBC (Bld)0.9 %[facility] PrebleEosinophils (Bld) [#/Vol]0.3 10*3/uLKettering Health PrebleEosinophils/100 WBC (Bld)3.1 %[facility] PrebleErythrocyte distribution width (RBC) [Ratio]14.6 %11.5 - 15.0 %[facility] PrebleHematocrit (Bld) [Volume fraction]50.3 %High39 - 49 %[facility] PrebleHemoglobin (Bld) [Mass/Vol] 17.6 g/yXKqhn22.0 - 17.0 g/dLKettering Health PrebleInterpretation and review of laboratory resultsAbnormalKettering Health PrebleLymphocytes (Bld) [#/Vol]1.2 10*3/[facility] ServicesLymphocytes/100 WBC (Bld)13.9 %[facility] PrebleMCH (RBC) [Entitic mass]32.5 pg27 - 34 pgPOhioHealth Riverside Methodist HospitalMCHC (RBC) [Mass/Vol]35.1 g/dL32 - 36 g/dLKettering Health PrebleMCV (RBC) [Entitic vol]93 fL80 - 100 [facility] Medical CenterMonocytes (Bld) [#/Vol]0.8 10*3/[facility] ServicesMonocytes/100 WBC (Bld)9.6 %[facility] PrebleNeutrophils (Bld) [#/Vol]6.1 10*3/[facility] ServicesNeutrophils/100 WBC (Bld)72.5 % [facility] PreblePlatelet mean volume (Bld) [Entitic vol]8.1 fL7 - 12 fL [facility] PreblePlatelets (Bld) [#/Vol]164 10*3/[facility] RBC (Bld) [#/Vol]5.43 10*6/[facility] ServicesWBC corrected for nucl RBC Auto (Bld) [#/Vol]8.5PSelect Specialty Hospital - Camp HillBASIC METABOLIC PANLon 24-42-0743Dbijy gap [Moles/Vol]13 mmol/LNormal5-15[facility] Hospital - ColumbusComment on above:Performed By: #### ROXANA, BMP #### [facility] ([id number]) [address], [address] [place], [place] [address]Ezwzriu [Mass/Vol]9.6 mg/dLNormal8.5-10.5PAdena Health SystemComment on above:Performed By: #### ROXANA, BMP #### [facility] ([id number]) [address], [address] [place], [place] [address]Mwdabrec [Moles/Vol]99 mmol/MXfrwhp49-575EntHfedpk [place] HospitalComment on above:Performed By: #### ROXANA, BMP #### [facility] ([id number]) [address], [address] [place], [place] [address]IK0 [Moles/Vol]26 mmol/VSbprya85-89FfkUsxfvaAdena Health System Comment on above:Performed By: #### ROXANA, BMP #### [facility] ([id number]) [address], [address] [place], [place] [address]Bmcrvinjas [Mass/Vol]0.91 mg/dLNormal0.60-1.30ProTrihealth Mccullough-Hyde Memorial HospitalComment on above:Result Comment: METHOD TRACEABLE TO IDMS STANDARD Performed By: #### ROXANA, BMP #### [facility] ([id number]) [address], [address] [place], [place] [address]ZAT/1.73 sq M.predicted among non-blacks MDRD (S/P/Bld) [Vol rate/Area]90 mL/min/{1.73_m2}Normal>59ProTrihealth Mccullough-Hyde Memorial HospitalComment on above: Result Comment: Reported eGFR is based on the CKD-EPI 2020 equation that does not use a race coefficient.Performed By: #### ROXANA, BMP #### [facility] ([id number]) [address], [address] [place], [place] [address]Kaovlcj [Mass/Vol]88 mg/iFBwyseq78-66RtaZzguno [facility] Comment on above:Performed By: #### CBCYamini, BMP #### [facility] ([id number]) [address], [address] [place], [place] [address]Xrtxsfquq [Moles/Vol]4.2 mmol/LNormal3.5-5.0[facility] Hospital - ColumbusComment on above:Result Comment: SPECIMEN HEMOLYZED, RESULTS INCREASED MODERATELY HEMOLYZEDPerformed By: #### CBCYamini, BMP #### [facility] ([id number]) [address], [address] [place], [place] [address]Mvldmb [Moles/Vol]138 mmol/HPpudts788-508PktPokdzxSelect Medical Specialty Hospital - ColumbusComment on above:Performed By: #### CBCA, BMP #### [facility] ([id number]) [address], [address] [place], [place] [address]Yvmc nitrogen [Mass/Vol]13 mg/dLNormal5-27ProTrihealth Mccullough-Hyde Memorial HospitalComment on above:Performed By: #### CBCYamini, BMP #### [facility] ([id number]) [address], [address] [place], [place] [address]OJLJZ CULTUREon 50-04-9621Efnhfgva identified Aer cx Nom (Bld) CULTURE RESULTS NO GROWTH 5 DAYSNoUniversity Hospitals Conneaut Medical CenterBasic Metabolic Panelon 87-56-8020Wxucd gap [Moles/Vol]13 mmol/L5 - 15 mmol/[facility] CenteroMednoland hospital [facility] Calcium [Mass/Vol]9.6 mg/dL8.5 - 10.5 mg/dLKettering Health PrebleChloride [Moles/Vol]99 mmol/L98 - 109 mmol/LProMedica Health SystemCO2 [Moles/Vol]26 mmol/L22 - 32 mmol/[facility] SystemCreatinine [Mass/Vol]0.91 mg/dL0.60 - 1.30 mg/dLKettering Health PrebleComment on above:METHOD TRACEABLE TO IDMS STANDARDeGFR (CKD-EPI)non-race acfppwkzj22- [facility] Center PortsmouthComment on above: Reported eGFR is based on the CKD-EPI 2020 equation that does not use a race coefficient. Glucose [Mass/Vol]88 mg/dL65 - 99 mg/dLKettering Health PreblePotassium [Moles/Vol]4.2 mmol/L3.5 - 5.0 mmol/[facility] Wert County HospitalComment on above: SPECIMEN HEMOLYZED, RESULTS INCREASED MODERATELY HEMOLYZED Sodium [Moles/Vol]138 mmol/L134 - 146 mmol/[facility] SystemUrea nitrogen [Mass/Vol]13 mg/dL5 - 27 mg/dLProSelect Specialty Hospital [facility] UPMCCBC AND AUTO DIFFon [id number] BASOPHIL0.1 X10E9/LNormal0.0-0.2PAdena Health SystemComment on above:Performed By: #### CBCA, BMP #### [facility] ([id number]) [address], [address] [place], [place] [address]RIWRASRC NEUTROPHIL6.8 X10E9/LHigh1.5-6.6[facility] - ColumbusComment on above:Performed By: #### CBCA, BMP #### [facility] ([id number]) [address] [place], [place] [address]Islfnvzcv/100 WBC (Bld)0.6 %[facility] Comment on above:Performed By: #### CBCA, BMP #### [facility] ([id number]) [address], [address] [place], [place] [address]Gxlrkadtsfl (Bld) [#/Vol]0.2 10*3/uLNormal0.0-0.4[facility] - ColumbusComment on above:Performed By: #### CBCA, BMP #### [facility] ([id number]) [address] [place], [place] [address]Qubdeswbodp/100 WBC (Bld)2.3 %[facility] Comment on above:Performed By: #### CBCA, BMP #### [facility] ([id number]) [address], [address] [place], [place] [address]Sscobiiaaxx distribution width (RBC) [Ratio]14.8 %Normal 11.5-15.0ProTogus Va Medical Centerca Fort Lauderdale HospitalComment on above:Performed By: #### CBCA, BMP #### [facility] ([id number]) [address], [address] [place], [place] [address]Ciozygaqtt (Bld) [Volume fraction]55.4 %Eogq89-58AtuSfhvqg [place]uderdale HospitalComment on above:Performed By: #### CBCA, BMP #### [facility] ([id number]) [address], [facility] [address] [place], [place] [address]Jcwlximmfc (Bld) [Mass/Vol]19.3 g/xYZfer91.0-17.0[facility]uderdale HospitalComment on above:Performed By: #### CBCA, BMP #### [facility] ([id number]) [address] [address], [address] [place], [place] [address]Niseadttikh (Bld) [#/Vol]1.1 10*3/uLNormal1.0-3.5ProMedica Fort Lauderdale HospitalComment on above:Performed By: #### CBCA, BMP #### [facility] ([id number]) [address], [address] [place], [place] [address]Poirsglynbv/100 WBC (Bld)12.1 %NormalProTogus Va Medical Centerca [facility] [place] Comment on above:Performed By: #### CBCA, BMP #### [facility] ([id number]) [address], [address] [place], [place] [address]MSH (RBC) [Entitic mass]31.9 feZpluxn42-60TdsIokirn [place]ale HospitalComment on above:Performed By: #### CBCA, BMP #### [facility] ([id number]) [address], [address] [place], [place] [address]VEEY (RBC) [Mass/Vol]34.9 g/lHRvkpam89-94DrcAmakus Tapia HospitalComment on above:Performed By: #### CBCA, BMP #### [facility] ([id number]) [address], [address] [place], [place] [address]MYK (RBC) [Entitic vol]92 bKKlnjao83-340DqzBfajal [place]ale HospitalComment on above:Performed By: #### CBCA, BMP #### [facility] ([id number]) [address], [address] [place], [place] [address]Dnjqobvoc (Bld) [#/Vol]0.9 10*3/uLNormal0-0.9ProMedica Tapia HospitalComment on above:Performed By: #### CBCA, BMP #### [facility] ([id number]) [address], [address] [place], [place] [address]Rhsjgsfvk/100 WBC (Bld)10.0 %NormalSelect Medical Specialty Hospital - [facility] Comment on above:Performed By: #### CBCA, BMP #### [facility] ([id number]) [address], [address] [place], [place] [address]Gqiwigfupdz/100 WBC (Bld)75.0 %NormalSelect Medical Specialty Hospital - [place] Comment on above:Performed By: #### CBCA, BMP #### [facility] ([id number]) [address], [address] [place], [place] [address]Oknavhne mean volume (Bld) [Entitic vol]8.1 fLNormal7-12 ProMedica Tapia HospitalComment on above:Performed By: #### CBCA, BMP #### [facility] ([id number]) [address], [address] [place], [place] [address]Vazcdsbsh (Bld) [#/Vol]180 10*3/oLSzrefp183-481PlhRwbmpc Tapia HospitalComment on above:Performed By: #### CBCA, BMP #### [facility] ([id number]) [address], [address] [place], [place] [address]ODK COUNT6.05 X10E12/LHigh4.10-5.70[facility] Comment on above:Performed By: #### CBCA, BMP #### [facility] ([id number]) [address], [address] [place], [place] [address]ZTH (Bld) [#/Vol]9.1 10*3/uLNormal4.0-11.0Select Medical Specialty Hospital - ColumbusComment on above:Performed By: #### CBCA, BMP #### [facility] ([id number]) [address], [address] [place], [place] [address]PSG auto differentialon 88-91-2195Gakwybtfg (Bld) [#/Vol]0.1 10*3/[facility] ServicesBasophils/100 WBC (Bld)0.6 %[facility] PrebleEosinophils (Bld) [#/Vol]0.2 10*3/uLKettering Health PrebleEosinophils/100 WBC (Bld)2.3 %[facility] PrebleErythrocyte distribution width (RBC) [Ratio]14.8 %11.5 - 15.0 %[facility] PrebleHematocrit (Bld) [Volume fraction]55.4 %High39 - 49 %[facility] PrebleHemoglobin (Bld) [Mass/Vol] 19.3 g/bWWltu52.0 - 17.0 g/dLKettering Health PrebleInterpretation and review of laboratory resultsAbnormalKettering Health PrebleLymphocytes (Bld) [#/Vol]1.1 10*3/uLKettering Health PrebleLymphocytes/100 WBC (Bld)12.1 %[facility] PrebleMCH (RBC) [Entitic mass]31.9 pg27 - 34 [facility] HospitalMCHC (RBC) [Mass/Vol]34.9 g/dL32 - 36 g/dLKettering Health PrebleMCV (RBC) [Entitic vol]92 fL80 - 100 [facility] Medical CenterMonocytes (Bld) [#/Vol]0.9 10*3/uLKettering Health PrebleMonocytes/100 WBC (Bld)10.0 %[facility] PrebleNeutrophils (Bld) [#/Vol]6.8 10*3/uLCritical access hospitalNeutrophils/100 WBC (Bld)75.0 %[facility] PreblePlatelet mean volume (Bld) [Entitic vol]8.1 fL7 - 12 fL [facility] Health PreblePlatelets (Bld) [#/Vol]180 10*3/uLOhioHealth Marion General Hospital System RBC (Bld) [#/Vol]6.05 10*6/uLCritical access hospitalWBC corrected for nucl RBC Auto (Bld) [#/Vol]9.1PSelect Specialty Hospital - Camp HillCT NECK SOFT TISSUE W CONTon 64-49-2588EZ NECK SOFT TISSUE W CONTCT NECK SOFT TISSUE W CONT EXAM: CT [...] and middle ear; clinical correlation for acute right-s ided otitis media is recommended. The left mastoid [...] by Cyrus Singh MD on 12/26/2023 4:48 PMNormalProTogus Va Medical Centerca [facility] HospitalCT Neck W contrast Starr 05-59-4125EXLC: CT NECK WITH CONTRAST CLINICAL INFORMATION: Soft [...] by Cyrus Singh MD on 12/26/2023 4:48 [facility] – TULSANANETTEASTRIA REGIONAL MEDICAL CENTERCyrus Singh MD - 12/26/2023 EXAM: CT NECK WITH CONTRAST CLINICAL [...] Cyrus Singh MD on 12/26/2023 4:[address] [facility] HospitalWestEd [facility] HospitalRadiology Study observation (narrative)[facility] [employer] SystemCT Neck W contrast IVOrdered By: Cyrus Singh on 86-75-0544OykNvqowu Health System Work Phone: cT TEMPORAL BONES W CONTon 42-09-3438RP TEMPORAL BONES W CONTCT TEMPORAL BONES W CONT CT TEMPORAL BONES W CONT: 12/26/2023 PROVIDED HISTORY: * 73 years old Male * Mastoiditis COMPARISON: CT neck 01/13/2024, MRI brain 05/15/2017 TECHNIQUE: 1. High-resolution temporal bone CT with multiplanar reformats. Examination performed following theuneventful intravenous administration of contrast. 2. All CT scans at this facility use dose modulation, iterative reconstruction, and/or weight baseddosing when appropriate to reduce radiation dose to [...] by Althea Santillan MD on 12/26/2023 5:13 PMNormalProMedica Ohiohealth Hardin Memorial HospitalCT Temporal bone W contrast Starr 12-27-5269HY TEMPORAL BONES W CONT: 12/26/2023 PROVIDED HISTORY: * 73 years old Male * Mastoiditis COMPARISON: CT neck 01/13/2024, MRI brain 05/15/2017 TECHNIQUE: 1. High-resolution temporal bone CT with multiplanar reformats. Examination performed following theuneventful intravenous administration of contrast. 2. All CT scans at this facility use dose modulation, iterative reconstruction, and/or weight baseddosing when appropriate to reduce radiation dose to [...] antrum with associated moderate opacification of the rightmastoid air cells. Mastoid air cell septae appear [...] by Althea Santillan MD on 12/26/2023 5:13 PMSECTRAPACSAbbas, Althea Cardozo MD - 12/26/2023 CT TEMPORAL BONES W CONT: 12/26/2023 PROVIDED HISTORY: * 73 years old Male * Mastoiditis COMPARISON: CT neck 01/13/2024, MRI brain 05/15/2017 TECHNIQUE: 1. High-resolution temporal bone CT with multiplanar reformats. Examination performed following theuneventful intravenous administration of contrast. 2. All CT scans at this facility use dose modulation, iterative reconstruction, and/or weight baseddosing when appropriate to reduce radiation dose to [...] antrum with associated moderate opacification of the rightmastoid air cells. Mastoid air cell septae appear [...] Althea Santillan MD on 12/26/2023 5:13 PM NeuroLogicaRadiology Study observation (narrative)NeuroLogicaCT Temporal bone W contrast IVOrdered By: Althea Santillan on 12-26-2023 [employer] Work Phone: b. burgdorferi IgG+IgM Qn (S)on 59-80-3528SMXO TOTAL 0.6 E7Lhgypv<0.9St. [facility] of God HospitalComment on above:Result Comment: Interpretation-------- <0.9 Negative 0.9 - 1.0 Equivocal >1.0 Positive No serological evidence of Borrelia infection.A non-reactive result does not exclude the possibility of Borrelia infection and cannot exclude early infection with B.burgdorferi. If Lyme borreliosis is suspected, a second sample should be collected and tested 2-4 weeks later.Performed By: #### CBCA, 04039-3, 1987-, 3084-1, 92547-0, 15302-9, 11460-6, 84408-0 #### [facility] ([id number]) [address] [place], [place] [address]IRO AND AUTO DIFFon 66-12-3203XIEHJKYB BASOPHIL0.1 X10E9/LNormal 0.0-0.2Pro[facility]ica Clinton Memorial HospitalComment on above:Performed By: #### ROXANA, 27157-4, 1987-07, 3083-, 55495-9, 40558-3, 05838-5, 74797-4 #### [facility] ([id number]) [address], [address] [place], [place] [address]GHTFOUZB NEUTROPHIL7.1 X10E9/LHigh1.5-6.6ProMadison HealthComment on above:Performed By: #### ORXANA, 55764-3, 1987-07, 3083-, 69522-4, 70581-7, 25119-4, 53208-9 #### [facility] ([id number]) [address] [place] [address], [address] [place], [place] [address]Bpkwszofe/100 WBC (Bld)1.0 %NormalProMadison HealthComment on above:Performed By: #### ROXANA, 60363-5, 1987-07, 3083-, 51266-1, 91135-6, 28467-4, 64307-2 #### [facility] ([id number]) [address] [facility], [address] [place], [place] [address]Qdhyjqlilru (Bld) [#/Vol]0.3 10*3/uLNormal0.0-0.4ProMadison HealthComment on above:Performed By: #### ROXANA, 82031-2, 1987-07, 3083-, 42189-3, 75279-2, 60921-4, 44190-2 #### [facility] ([id number]) [address], [address] [place], [place] [address]Iflnhryflez/100 WBC (Bld)3.4 %NormalProMadison HealthComment on above:Performed By: #### ROXANA, 32032-5, 1987-07, 3083-, 80245-3, 05124-2, 97052-1, 32836-6 #### [facility] ([id number]) [address], [address] [place], [place] [address]Katvasznmul distribution width (RBC) [Ratio]14.1 %Normal 11.5-15.0ProMadison HealthComment on above:Performed By: #### ROXANA, 44153-8, 1987-07, 3083-, 14326-1, 42674-2, 01218-3, 77673-2 #### [facility] ([id number]) [address], [address] [place], [place] [address]Fqteczqwum (Bld) [Volume fraction]52.9 %Mxmu63-79FzhReprqfMadison HealthComment on above:Performed By: #### ROXANA, 06258-8, 1987-07, 3083-, 01709-9, 00795-7, 70144-0, 86819-1 #### [facility] ([id number]) [address], [address] [place], [place] [address]Oxmdfxgwdc (Bld) [Mass/Vol]18.2 g/hNGsgf81.0-17.0ProMadison HealthComment on above:Performed By: #### ROXANA, 17302-7, 1987-07, 3083-, 73756-9, 30831-4, 43013-7, 63803-7 #### [facility] ([id number]) [address], [address] [place], [place] [address]Rzhswmwpqzr (Bld) [#/Vol]1.1 10*3/uLNormal1.0-3.5ProMedUniversity Hospitals Geauga Medical CenterComment on above:Performed By: #### ROXANA, 74657-6, 1987-07, 308-1, 63198-4, 68172-7, 06966-4, 03097-4 #### [facility] ([id number]) [address], [address] [place], [place] [address]Whntkvqkqsb/100 WBC (Bld)11.8 %NormalProOhiohealth Southeastern Medical Center HospitalComment on above:Performed By: #### ROXANA, 47378-7, 1987-07, 3083-, 56950-7, 79312-7, 99696-1, 13028-4 #### [facility] ([id number]) [address], [address] [place], [place] [address]TTE (RBC) [Entitic mass]31.5 caZddcko07-79TztXorjzfMadison HealthComment on above:Performed By: #### ROXANA, 60710-3, 1987-07, 3083-03, 86934-6, 09273-0, 68748-6, 13855-6 #### [facility] ([id number]) [address], [address] [place], [place] [address]ZUFN (RBC) [Mass/Vol]34.5 g/sJMitndu88-64PrhSyejlpMadison HealthComment on above:Performed By: #### ROXANA, 84545-2, 1987-07, 3083-, 67597-0, 45799-6, 26183-4, 54221-1 #### [facility] ([id number]) [address], [address] [place], [place] [address]YKQ (RBC) [Entitic vol]91 jJAdlpga29-060OxqEzaldjMadison HealthComment on above:Performed By: #### ROXANA, 58392-7, 1987-07, 3083-, 79719-5, 71391-6, 43367-3, 99236-9 #### [facility] ([id number]) [address], [address] [place], [place] [address]Qlpsjzntp (Bld) [#/Vol]0.7 10*3/uLNormal0-0.9ProOhiohealth Southeastern Medical Center HospitalComment on above:Performed By: #### ROXANA, 47653-0, 1987-, 3084-1, 77128-9, 26814-1, 78562-4, 64686-9 #### [facility] ([id number]) [address], [address] [place], [place] [address]Rnomzhoem/100 WBC (Bld)7.8 %NormalProOhiohealth Southeastern Medical Center HospitalComment on above:Performed By: #### ROXANA, 82440-9, 1987-, 308-, 51324-1, 07594-9, 93644-6, 46824-5 #### [facility] ([id number]) [address], [address] [place], [place] [address]Maliyoprsft/100 WBC (Bld)76.0 %NormalProOhiohealth Southeastern Medical Center HospitalComment on above:Performed By: #### ROXANA, 00807-8, 1987-, 3083-, 36570-3, 66486-6, 63847-2, 81805-3 #### [facility] ([id number]) [address], [address] [place], [place] [address]Nbpegexk mean volume (Bld) [Entitic vol]8.8 fLNormal7-[address] [facility] HospitalComment on above:Performed By: #### CBCA, 93270-9, 1987-, 308-, 89858-5, 92763-3, 12077-6, 01607-9 #### [facility] ([id number]) [address], [address] [place], [place] [address]Jgpukujax (Bld) [#/Vol]174 10*3/rGKlbsmg856-972GqxUdsxobOhiohealth Southeastern Medical Center HospitalComment on above:Performed By: #### ROXANA, 53538-5, 1987-07, 3083-1, 00157-2, 70366-6, 19147-6, 67955-3 #### [facility] ([id number]) [address] [facility], [address] [place], [place] [address]LGQ COUNT5.80 X10E12/LHigh4.10-5.70ProMadison HealthComment on above:Performed By: #### ROXANA, 37111-0, 1987-07, 3083-, 25361-9, 12931-2, 04334-8, 64078-8 #### [facility] ([id number]) [address] [facility] [address], [address] [place], [place] [address]GSZ (Bld) [#/Vol]9.3 10*3/uLNormal4.0-11.0ProMadison HealthComment on above:Performed By: #### ROXANA, 53050-5, 1987-07, 3083-03, 75500-7, 87260-1, 86802-7, 00755-6 #### [facility] ([id number]) [address] [facility] [address], [address] [place], [place] [address]HOP [Mass/Vol]on 4C REACTIVE PROTEIN0.6 mg/dLNormal 0.000-0.744PSelect Medical Cleveland Clinic Rehabilitation Hospital, AvonComment on above:Performed By: #### ROXANA, 50051-7, 1987-07, 3083-03, 09375-9, 53259-5, 50206-0, 14742-8 #### [facility] ([id number]) [address] [place], [place] [address]KKD Photometric method (Bld) [Velocity]on 38-11-4020IFG, ERYTHROCYTE SEDIMENTATION RATE14 mm/hNormal0-20ProMadison HealthComment on above:Performed By: #### ROXANA, 52263-8, 1987-07, 3084-1, 63103-9, 16156-3, 98416-4, 50399-8 #### [facility] ([id number]) [address], [address] [place], [place] [address]CNR-H60 FC Ql (Bld/Tiss)on 58-95-0911KDD-B27 TYPINGNegative NormalProMadison HealthComment on above:Performed By: #### ROXAAN, 32977-2, 1987-07, 3083-, 08725-0, 38810-1, 78622-3, 79497-8 #### [facility] ([id number]) [address], [address] [place], [place] [address]Njqcalm Ab IA Ql (S)on 96-37-4211RJB Screen w/reflexNegative NormalNEGProMadison HealthComment on above:Result Comment: Testing performed using multiplex flow immunoassay. Eleven different antigens associated with systemic autoimmune diseases (dsDNA,Sm,Sm/RADIAL DRILL PRESS OPERATOR,RADIAL DRILL PRESS OPERATOR,Chromatin, SSA,SSB,Yessica-1,Scl70,Ribo P,Centromere B) are included in this screening test.Performed By: #### ROXANA, 60145-0, 1987-07, 3083-03, 10259-2, 76403-7, 01733-1, 54784-6 #### [facility] ([id number]) [address], [address] [place], [place] [address]Dcalyuphkd factor Nephelometry Qn (S)on 64-76-9166JRXUOAPGBU FACTOR<10Normal<20ProMadison HealthComment on above: Performed By: #### ROXANA, 58808-3, 1987-07, 3083-03, 71899-2, 29593-2, 63816-4, 70431-9 #### [facility] ([id number]) [address], [address] [place], [place] [address]KTGI ACIDon 16-06-5845Rqwcx [Mass/Vol]4.1 mg/dLNormal2.6-7.2 [facility] HospitalComment on above:Performed By: #### CBCA, 85322-6, 1988-5, 3084-1, 71002-9, 98461-7, 16847-7, 43015-7 #### [facility] ([id number]) [address] [place], [place] [address]WMFH urinalysis dipstick onlyon 95-45-9111Htcalxtw Poct Urine BilirubinNegativeProMedica Health SystemExternal Poct Urine BloodNegative [facility] Health SystemExternal Poct Urine GlucoseNegativeProMedica Health SystemExternal Poct Urine KetonesNegativeProMedica Health SystemExternal Poct Urine Leukocyte EsteraseNegativeProMediid Health SystemExternal Poct Urine NitriteNegativeProDecatur [facility] Health SystemExternal Poct Urine Ph5.0ProDecatur Morgan Hospital-Park[facility] Campus Health SystemExternal Poct Urine ProteinNegativeProMediid Health SystemExternal Poct Urine Specific Gravity1.025[facility] SystemExternal Poct Urine Urobilinogen0.2PHocking Valley Community Hospital SystemInterpretation and review of laboratory resultsNormalMarshfield Medical Center Beaver Dam SystemCNOVon 82-28-3317ASER Office Visit (YANDEL) YUE DELGADILLO ([id number]) 1950 M Date Time Provider Department 07/06/20 11:00 AM Palmira GARCIA During your visit today, we recorded the following information about you: Temperature Pulse Respiration Blood pressure 98.1 degrees 68/minute 16/minute 106/82 Weight 95.9 kg Palmira Garcia MD 07/09/2020 8:13 AM Signed Radiation Oncology - Prostate Cancer New Patient/Consult Note PATIENT NAME: Yue Cordovaford PATIENT REQUESTING PROVIDER: Dr. 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 History of Hip Replacement: No History [...] PHYSICAL EXAM: VS: BP (more content not included)...NormalWyandot Memorial HospitalOT-US PROSTATE IMPORTon 82-10-2947JH- PROSTATE IMPORTImages were obtained outside of [facility] [id number] Regional Medical CenterMRI L-Ext w/o Contrast RT on 70-37-9228UP Lower extremity - right WO contrastEXAMINATION TYPE: MRI L-Ext w/o Contrast RT DATE [...] 16:02 Transcribed by: ASHLEY 05/05/2020 15:52 Technologist: CorrineCherrington HospitalBasic Metabolic Panelon 05-55-2393Murzdws [Mass/Vol]10.1 mg/dLNormal8.5-10.6[facility] Chloride [Moles/Vol]101 mmol/QTeuhpd59-957Janqy [facility] SouthCO2 [Moles/Vol]25 mmol/QSnnfkh75-92Gpftk [facility] SouthCreatinine [Mass/Vol] 0.93 mg/dLNormal0.70-1.30[facility] SouthGlucose [Mass/Vol]108 mg/dL Ddjy39-16Ergug [facility] SouthPotassium [Moles/Vol]4.0 mmol/LNormal3.5-5.1 [facility] Medical Centerodium [Moles/Vol]139 mmol/BHytmkx720-944Aagrl [facility] SouthUrea nitrogen (BldV) [Mass/Vol]17 mg/dLNormal7.0-18.0[facility] SouthUrea nitrogen/Creatinine [Mass ratio]18 mg/mgNormalMount [facility] SouthCBC with Differentialon 48-94-7657Gisxwvntn (Bld) [#/Vol]0.1 thou/mcLNormal0.0-0.2Mount [facility] SouthBasophils/100 WBC (Bld)0.9 % Normal0-3Mount [facility] SouthDifferential cell count method Nom (Bld) AUTOMATED DIFFERENTIALNormalMount [facility] SouthEosinophils (Bld) [#/Vol] 0.4 thou/mcLNormal0.0-0.4Mount [facility] SouthEosinophils/100 WBC (Bld)5.0 %Normal0-7Mount [facility] Hospital SouthErythrocyte distribution width (RBC) [Entitic vol]13.9 %Jzxadk44.7-15.0[facility] SouthHematocrit (Bld) [Volume fraction]48.3 %Rzoeyw32.0-50.0[facility] SouthHemoglobin (Bld) [Mass/Vol]16.6 g/rGVegnon51.5-17.0Mount [facility]pa Health SystemLymphocytes (Bld) [#/Vol]1.3 thou/mcLNormal0.7-4.5Mount [facility] SouthLymphocytes/100 WBC (Bld)15.4 %Avsdbn23-05Ymonh [facility] SouthMCH (RBC) [Entitic mass]31.5 UlygzceotNjcxiz19.0-34.0[facility] Hospital SouthMCHC (RBC) [Mass/Vol]34.4 g/dL Wxehdj94.0-36.0[facility] SouthMCV (RBC) [Entitic vol]91.6 fLNormal 80-98Mount [facility] SouthMonocytes (Bld) [#/Vol]0.6 thou/mcLNormal0.1-1.0 ButtePremier Health Miami Valley Hospital SouthMonocytes/100 WBC (Bld)7.4 %Normal4-13Mount [facility] SouthNeutrophils (Bld) [#/Vol]6.1 thou/mcLNormal1.5-7.8Mount [facility] SouthNeutrophils/100 WBC (Bld)71.3 %Hyhubf94-47Ednjj [facility] SouthPlatelet mean volume (Bld) [Entitic vol]8.8 fLNormal7.5-11.2[facility] SouthPlatelets (Bld) [#/Vol]224 thou/amGAiysgq067-587Vjukc [facility] SouthRBC (Bld) [#/Vol]5.28 x(10)6/mcLNormal3.80-5.60[facility] WBC (Bld) [#/Vol]8.5 thou/mcLNormal4.0-10.5[facility] SouthBasic Metabolic Panelon 18-51-4043Inixrvo [Mass/Vol]9.7 mg/dLNormal8.5-10.6[facility] SouthChloride [Moles/Vol]102 mmol/ZStejjy13-025Qftit [facility] SouthCO2 [Moles/Vol]25 mmol/IWuzovo11-10Larxd [facility] Creatinine [Mass/Vol]0.99 mg/dLNormal0.70-1.30Mount [facility] SouthGlucose [Mass/Vol]104 mg/nVTbhd46-92Zneiv [facility] SouthPotassium [Moles/Vol]3.9 mmol/LNormal3.5-5.1[facility] Companyodium [Moles/Vol]140 mmol/LNormal 136-145Mount [facility] SouthUrea nitrogen (BldV) [Mass/Vol]16 mg/dLNormal 7.0-18.0[facility] SouthUrea nitrogen/Creatinine [Mass ratio]16 mg/mg NormalMount [facility] SouthCBC with Differentialon 26-82-6979Rrgmzzsmm (Bld) [#/Vol]0.1 thou/mcLNormal0.0-0.2[facility] SouthBasophils/100 WBC (Bld)0.7 %Normal0-3Mount [facility] SouthDifferential cell count method Nom (Bld)AUTOMATED DIFFERENTIALNormalMount [facility] SouthEosinophils (Bld) [#/Vol]0.4 thou/mcLNormal0.0-0.4Mount [facility] SouthEosinophils/100 WBC (Bld)3.8 %Normal0-7Mount [facility] Hospital SouthErythrocyte distribution width (RBC) [Entitic vol]14.5 %Obqdtq58.7-15.0[facility] Hospital SouthHematocrit (Bld) [Volume fraction]50.2 %High34.0-50.0[facility] SouthHemoglobin (Bld) [Mass/Vol]17.2 g/hCLrko82.5-17.0Mount [facility] SouthLymphocytes (Bld) [#/Vol]1.2 thou/mcLNormal0.7-4.5Mount [facility] SouthLymphocytes/100 WBC (Bld)12.5 %Bnv27-59Rymkh [facility] HospitalH (RBC) [Entitic mass]31.3 YfipaqblxEariip87.0-34.0[facility] SouthMCHC (RBC) [Mass/Vol]34.3 g/dL Mpayue24.0-36.0[facility] SouthMCV (RBC) [Entitic vol]91.2 fLNormal 80-98[facility] SouthMonocytes (Bld) [#/Vol]0.7 thou/mcLNormal0.1-1.0 [facility]/100 WBC (Bld)7.6 %Normal4-13[facility] SouthNeutrophils (Bld) [#/Vol]7.3 thou/mcLNormal1.5-7.8[facility] SouthNeutrophils/100 WBC (Bld)75.4 %Abyg32-47Vvkkc [facility] Platelet mean volume (Bld) [Entitic vol]9.1 fLNormal7.5-11.2[facility] SouthPlatelets (Bld) [#/Vol]166 thou/nfVExhddq622-310Lcvus [facility] RBC (Bld) [#/Vol]5.50 x(10)6/mcLNormal3.80-5.60[facility] SouthWBC (Bld) [#/Vol]9.7 thou/mcLNormal4.0-10.5[facility] SouthAmbulatory Patient Educationon [id number] Patient EducationPatient Education MaterialsName: Yue Delgadillo Current Date: 06/04/2017 16:36:53 Sarah/[place]DOB: 1950 following sheet(s) are the Patient Education Leaflets for Yue Delgadillo [facility]allaryngologyInner Ear Problems: Causes of Dizziness (Vertigo) Benign positional vertigo (BPV)This is the most common cause of vertigo. BPV is also called benign positional paroxysmal vertigo (BPPV). It happens when crystals in the ear canals shift into the wrongplace. Vertigo usually occurs when you move your [...] incorrect balance signals. This problem may be causedby a viral infection. Depending on the cause, your hearing can be affected (labyrinthitis). Or yourhearing can remain normal (neuronitis).Infection or inflammation:? Causes vertigo that lasts for hours or days. The first episode is usually the worst.? Can cause hearing loss? Often goes away on itsown. But it may go away sooner with treatment.You may need vestibular rehabilitation if you have balance problems that don't go away.Meniere's diseaseThis condition is uncommon. It happens when thereis too much fluid in the ear canals. This causes increased pressure and swelling. It affects balance and hearing signals.Meniere's disease may:? Cause vertigo that last for hours? Cause hearing problems that come and go. The problems are usually in one ear and get worse over time.? Cause buzzing orringing in the ears (tinnitus)? Cause a feeling of fullness or pressure in the ear? Cause any of these symptoms: vertigo, hearing loss, tinnitus, or ear fullness to last a lifetime? 8491-9451 [employer]. [address] [place] [address]. All rights reserved. This informationis not intended as a substitute for professional medical care. Always follow your healthcare professional's instructions.[facility] HospitalOtol[facility] Office/Clinic Noteon [id number] Office/Clinic NoteHISTORY: Patient was seen today for audiologic assessment, referred by Margo Chang PA-C, regarding dizziness. He was initially referred by Dr. Ramirez. He was recently seen in the [facility] for an MRI and CT scan, and was given a possible diagnosis of Meniere?s disease. Patient?s symptoms began approximately 3 weeks ago, with severe sinus infection with headaches. He indicates that hefirst noticed the dizziness when bending over, and [...] compliance, bilaterally. Pure tone audiometry suggested moderate sensorineuralhearing loss at 4000 Hz for the right ear and moderately severe rising to moderate sensorineural hearing loss from 6349-7816 Hz for the left ear. Speech recognition scores were in good agreement withpure tone averages, bilaterally. Word recognition scores were excellent at 96% for the right ear and good at 84% for the left ear.SUMMARY: Moderate sensorineural hearing loss at 4000 Hz for the rightear and moderately severe rising to moderate sensorineural hearing loss from 9226-1398 Hz for the left ear. Patient is a borderline hearing aid candidate, more so for the left ear than the right, butexpressed that he is not interested in hearing [...] if interested in discussing amplification options.3. Continued useof hearing protection devices when exposed to loud sounds.Electronically signed by Phylicia Waggoner 05/31/17 12:11 ESTNormal [facility] SystemOtolaryngology Office/Clinic NoteChief Complaint VNGHistory of Present Illness History of [...] abnormality notedProblem List/Past Medical History Ongoing Acute b ronchitis GERD Gout Headache Hypercholesterolemia Hypertension Knee pain Loss of balance HistoricalNo qualifying dataProcedure/Surgical History APPENDECTOMY.Medications Aleve 220 mg oral tablet, 1 caps, Oral, Daily, PRN allopurinol 300 mg oral tablet, 300 mg, 1 tabs, Oral, Daily amLODIPine 10 mg or al tablet, 10 mg, 1 tabs, Oral, Daily Flovent HFA 110 mcg/inh inhalation aerosol, 2 puffs, Inhale, BID fluticasone 50 mcg/inh nasal spray, 1 sprays, Nasal, qAM, 2 refills hydrOXYzine hydrochloride 25mg oral tablet, 25 mg, 1 tabs, Oral, Daily multivitamin, 1 tabs, Oral, Daily omeprazole, 20 mg, Oral, Daily simvastatin 20 mg oral tablet, 20 mg, 1 tabs, Oral, DailyAllergies Augmentin (Hives)Social History Tobacco Former smoker, CigarettesFamily History Heart attack: Father. Stroke: Mother.Diagnostic Results No qualifying data available. No qualifying data available. No qualifying data available. No qualifying data available.Electronically signed by ___Margo Chang PA-C 06/01/17 13:23 [facility] HospitalAmb[facility] Patient Educationon [id number] Patient Education Patient Education MaterialsName: Yue Delgadillo Esau Current Date: 05/23/2017 08:36:14 Sarah/[place]terlingDOB: 1950 following sheet(s) are the Patient Education Leaflets for Yue DelgadillotolaryngologyInner Ear Problems: Causes of Dizziness (Vertigo) Benign positional vertigo (BPV)This is the most common cause of vertigo. BPV is also called benign positional paroxysmal vertigo (BPPV). It happens when crystals in the ear canals shift into the wrongplace. Vertigo usually occurs when you move your [...] incorrect balance signals. This problem may be causedby a viral infection. Depending on the cause, your hearing can be affected (labyrinthitis). Or yourhearing can remain normal (neuronitis).Infection or inflammation:? Causes vertigo that lasts for hours or days. The first episode is usually the worst.? Can cause hearing loss? Often goes away on itsown. But it may go away sooner with treatment.You may need vestibular rehabilitation if you have balance problems that don't go away.Meniere's diseaseThis condition is uncommon. It happens when thereis too much fluid in the ear canals. This causes increased pressure and swelling. It affects balance and hearing signals.Meniere's disease may:? Cause vertigo that last for hours? Cause hearing problems that come and go. The problems are usually in one ear and get worse over time.? Cause buzzing orringing in the ears (tinnitus)? Cause a feeling of fullness or pressure in the ear? Cause any of these symptoms: vertigo, hearing loss, tinnitus, or ear fullness to last a lifetime? 4037-[address] [employer] [place] [address], [place] [address]. All rights reserved. This informationis not intended as a substitute for professional medical care. Always follow your healthcare professional's instructions.[facility] SystemOtolaryngology Office/Clinic Noteon [id number] Office/Clinic NoteChief Complaint Vertigo- [facility] History of Present Illness HPI: Patient states he has had it for abot 3 weeks, Patient was in the [facility] for the dizziness, had an MRI and [...] Ramirez and all notes were reviewedReview of [facility] Fatigue: Yes Appetite change: [...] No Vomiting: No Vomiting blood: No Genitourinary Hem atologic/Lymphatic Musculoskeletal Neurological Psychiatric Respiratory Cough: No Hemoptysis: No Other Respiratory: No Shortness_of_breath: No Snoring: No Sputum production: No Wheezing: No SkinPhysical Exam Vitals & Measurements BP: 155/92 HT: 180.3 cm WT: 96.55 kg BMI: 29.7 Overall:[Communication mode is clear, normal] [Appearance- no acute distress, appears stated age and is well nourished] Assistive device:[ none] Head:[normocephalic, no trauma, lesions or asymmetry] Ocular appearance:[Conjuctiva- clear and bright, no drainage or infection. [...] or tenderness]]. Mental Status:[Alert and oriented x3][Mood andaffect normal][Gait is normal]. Noel-pike neg. Additional Vitals Body Mass Index Measured: 29.7 kg/m2 BP Position/Location: Sitting, Right arm Peripheral Pulse Rate: 60 bpmAssessment/Plan 1. Vertigo Plan full workup for vestiublar system with audiogram and VNG. Pt reassured with inner ear conditionsthese usually improve with time. Finish out current meds but no new meds added for dizziness. He should try to be active but avoid laying flat for now.At least 20 min was spent in discussion of symptoms, plan of care and likely progression. Pt expressed understanding Ordered: fluticasone nasal, 1 sprays, Nasal, qAM, # 1 EA, 2 Refill(s), Pharmacy: [facility] [id number] AMB office consult ation new or EST patient, mod to high 2. Nausea Can take nausea med intermittently for nausea Ordered: [id number] AMB office consultation new or EST patient, mod to high 3. Maxillary sinusitis Flonase added to relieve any continued sinus congestion, this is unlikely to have caused his imbalance. Ordered: 58971 AMB office consultation new or EST patient, mod to highProblem List/Past Medical History Ongoing Acute bronchitis GERD Gout Headache Hypercholesterolemia Hypertension Knee pain Loss of balanceHistorical No qualifying dataProcedure/Surgical History APPENDECTOMY.Medications fluticasone 50 mcg/inh nasal spray, 1 sprays, Nasal, qAM, 2 refillsAllergies Augmentin (Hives)Social History Tobacco Former smoker, CigarettesFamily History Heart attack: Father. Stroke: Mother.Diagnostic Results No qualifying data available. No qualifying data available. No qualifying data available. No qualifying data available.Electronically signed by Charlene FERMIN,Margo Allen 05/23/17 11:14 [facility] Vital Signs Date TimeVital SignValuePerforming FoatkoynzIikihive59-07-8534 13:56-0500Body .3 cmLogan Arana MD Work Phone: [facility]11-10-2025 13:56-0500Body mass index (BMI) [Ratio]30.8 kg/c5GnuusjoLogan Arana MD Work Phone: [facility]11-10-2025 13:56-0500Body rfduwrrwcge59.9 [degF]Logan Arana MD Work Phone: [facility]11-10-2025 13:56-0500Body yxqphm46.62 kgLogan Arana MD Work Phone: [facility]08-04-2025 11:17-0400Body mass index (BMI) [Ratio]31.1 kg/m2Brianna Brunner MD Work Phone: 1(878)051-[address] [place], [place] 2526208-04-2025 11:17-0400Body hrcdqu49.53 kgBrianna Brunner MD Work Phone: 1(130)116-[address] [place], [place] 2526208-04-2025 11:17-0400Diastolic blood mm[Hg]Brianna Brunner MD Work Phone: 1(442)527-[address] [place], [place] 2526208-04-2025 11:17-0400Heart rate 74 /minBrianna Brunner MD Work Phone: 1(863)082-[address] [place], [place] 2526208-04-2025 11:17-0400Systolic blood mm[Hg]Brianna Brunner MD Work Phone: 1(353)890-[address] [place], [place] 2526205-06-2025 09:03-0400Body .3 cmLogan Arana MD Work Phone: [facility]05-06-2025 09:03-0400Body mass index (BMI) [Ratio]31.01 kg/v7EefpgvdLogan Arana MD Work Phone: [facility]05-06-2025 09:03-0400Body lcjajo75.25 kgLogan Arana MD Work Phone: [facility]05-06-2025 09:03-0400 Respiratory rate18 /minLogan Arana MD Work Phone: [facility]03-03-2025 12:30-0500Diastolic blood yykqyfrk96 mm[Hg]Maia MADDOX [facility]03-03-2025 12:30-0500Mean blood ycdvhctd563 mm[Hg]Maia MADDOX [facility]03-03-2025 12:30-0500Systolic blood rkevoyer553 mm[Hg]Maia MADDOX [facility]03-03-2025 12:20-0500Blood Pressure LocationPatristonk MADDOX [facility]03-03-2025 12:20-0500Diastolic blood vmxhieiz069 mm[Hg]Maia MADDOX [facility]03-03-2025 12:20-0500Heart rate77 /minPatrick VARSHA [facility]03-03-2025 12:20-0500Respiratory rate18 /minPatrick VARSHA [facility]03-03-2025 12:20-0500Systolic blood ayhpkjkb198 mm[Hg]Maia MADDOX [facility]02-28-2025 09:24-0500Blood Pressure LocationJENNIFER MARILYN [facility]02-28-2025 09:24-0500Body tkpdudpmiwc67.62 [degF]BENNIE SANDERS [facility]02-28-2025 09:24-0500Diastolic blood aywrgrtt70 mm[Hg]BENNIE SANDERS [facility]02-28-2025 09:24-0500Heart rate77 /minJENNIFER MARILYN [facility]02-28-2025 09:24-0500Respiratory rate18 /minJENNIFER MARILYN [facility]02-28-2025 09:24-0500Systolic blood osatohyn448 mm[Hg]BENNIE SANDERS [facility]02-06-2025 08:30-0500Body .3 cmBrianna Brunner MD Work Phone: 1(386)703-[address] [place], [place] 2526202-06-2025 08:30-0500Body mass index (BMI) [Ratio]31.1 kg/m2Brianna Brunner MD Work Phone: 1(867)717-[address] [place], [place] 1257802-06-2025 08:30-0500Body omzpsq91.53 kgJomartita Brunner MD Work Phone: 1(805)915-[address] [place], [place] 1257802-06-2025 08:30-0500Diastolic blood mm[Hg]Brianna Brunner MD Work Phone: 1(670)561-[address] [place], [place] 2526202-06-2025 08:30-0500Heart rate 77 /minBrianna Brunner MD Work Phone: 1(196)316-[address] [place], [place] 2526202-06-2025 08:30-0500Systolic blood wydskgzr952 mm[Hg]Brianna Brunner MD Work Phone: [facility]01-06-2025 08:47-0500Blood Pressure LocationPacelena MADDOX [facility]01-06-2025 08:47-0500Body rgasoaoiexk31.24 [degF]Maia MADDOX [facility]01-06-2025 08:47-0500Diastolic blood mm[Hg]Maia MADDOX [facility]01-06-2025 08:47-0500Heart rate84 /minMaia MADDOX [facility]01-06-2025 08:47-0500Systolic blood fgginhvg963 mm[Hg]Maia MADDOX [facility]11-12-2024 09:25-0500Body eueqhg167.8 cmEanabell Neptali DO Work Phone: [facility]11-12-2024 09:25-0500Body mass index (BMI) [Ratio]29.59 kg/v3Vowpk Gunderson DO Work Phone: [facility]11-12-2024 09:25-0500Body bcimuejhfrj21.1 [degF]Phylicia Gunderson DO Work Phone: [facility]11-12-2024 09:25-0500Body fnmuga86.53 kgPhylicia Gunderson DO Work Phone: [facility]10-07-2024 11:36-0400Body bgfkyuesghp93.3 [degF]Georgie Menendez MD Work Phone: [facility]10-07-2024 11:36-0400Diastolic blood khexaqga07 mm[Hg]Georgie Menendez MD Work Phone: 1(641)343-[address] [place] [address] [employer] Bhzqal18-85-6012 11:36-0400Heart rate 77 /minGeorgie Menendez MD Work Phone: 1(242)937-[address] [place], [place] 2587810-07-2024 11:36-0400 Respiratory rate18 /minGeorgie Menendez MD Work Phone: 1(476)[address]10-07-2024 11:36-3439ZkL5% (BldA) [Mass fraction]90 %Georgie Menendez MD Work Phone: 1(032)[address] [employer] Haxvuc10-58-6115 11:36-0400Systolic blood islrpgga300 mm[Hg]Georgie Menendez MD Work Phone: 1(855)173-[address] [place], [place] 2587810-07-2024 05:00-0400Body mass index (BMI) [Ratio]29.23 kg/f8KegdwGeorgie Menendez MD Work Phone: 1(314)144-[address] [place], [place] 2587810-07-2024 05:00-0400Body tcgykv25.4 kgGeorgie Menendez MD Work Phone: 1(322)104-[address] [place], [place] 2587810-02-2024 15:17-0400Body behyhl340.8 cmGeorgie Menendez MD Work Phone: 1(826)862-[address] [place] [address] [employer] Bvrctm31-40-6712 11:03-0400Body esxhej033.8 cmOscar Johnson MD Work Phone: [facility]10-02-2024 11:03-0400Body mass index (BMI) [Ratio]29.79 kg/m2Oscar Johnson MD Work Phone: [facility] [employer] Gyvctz31-43-7826 11:03-0400Body hiimwvuexho26.2 [degF]Oscar Johnson MD Work Phone: [facility] [employer] Xobcaq76-89-1431 11:03-0400Body .17 kgOscar Johnson MD Work Phone: [facility]10-01-2024 09:22-0400Body xngvuv991.7 Mariana Johnson MD Work Phone: [facility]10-01-2024 09:22-0400Body mass index (BMI) [Ratio]31.32 kg/m2Oscar Johnson MD Work Phone: [facility]10-01-2024 09:22-0400Body iqqjytrkwej22 [degF]Oscar Johnson MD Work Phone: [facility]10-01-2024 09:22-0400Body fpysgb03.44 kgOscar Johnson MD Work Phone: [facility]10-01-2024 09:22-0400 Respiratory rate19 /minOscar Johnson MD Work Phone: [facility]09-26-2024 09:01-0400Body nquekz594.7 cmCaimikey Espinoza JAVASCRIPT DEVELOPER-ACUTE CARE NURSE PRACTITIONER Work Phone: [facility]09-26-2024 09:01-0400Body mass index (BMI) [Ratio]31.47 kg/n1Tncfqpzdevante Espinoza JAVASCRIPT DEVELOPER-ACUTE CARE NURSE PRACTITIONER Work Phone: [facility]09-26-2024 09:01-0400Body xqbqiw33.89 kgCamarilou Espinoza JAVASCRIPT DEVELOPER-ACUTE CARE NURSE PRACTITIONER Work Phone: [facility]09-23-2024 12:43-0400Body ywjnwg126.6 Evy Forbes MD Work Phone: [facility]09-23-2024 12:43-0400Body mass index (BMI) [Ratio]30.85 kg/p2UfnyoRussell Forbes MD Work Phone: [facility]09-23-2024 12:43-0400Body ctbsqbqqeif68.39 [degF]Russell Forbes MD Work Phone: [facility]09-23-2024 12:43-0400Body lmiyjy27.08 Daniella Forbes MD Work Phone: [facility]09-23-2024 12:43-0400 Respiratory rate17 /minRussell Forbes MD Work Phone: [facility]09-16-2024 13:50-0400Body mass index (BMI) [Ratio]30.94 kg/m2Brianna Brunner MD Work Phone: 1(111)[address]09-16-2024 13:50-0400Body mbkzpxibqls67.9 [degF]Brianna Brunner MD Work Phone: 1(402)[address]09-16-2024 13:50-0400Body kbujes63.35 kgBrianna Brunner MD Work Phone: 1(461)[address]09-16-2024 13:50-0400Diastolic blood hzeumyom08 mm[Hg]Brianna Brunner MD Work Phone: 1(564)[address]09-16-2024 13:50-0400Heart rate 81 /minBrianna Brunner MD Work Phone: 1(689)[address]992 [address]09-16-2024 13:50-0400Systolic blood mm[Hg]Brianna Brunner MD Work Phone: 1(415)[address]09-06-2024 10:54-0400Body mass index (BMI) [Ratio]30.94 kg/m2Brianna Brunner MD Work Phone: 1(035)[address]09-06-2024 10:54-0400Body orbkhqedpfc67.7 [degF]Brianna Brunner MD Work Phone: 1(278)34692 [address]09-06-2024 10:54-0400Body .35 Jodie Brunner MD Work Phone: 1(495)[address]09-06-2024 10:54-0400Diastolic blood efrsuzjd63 mm[Hg]Brianna Brunner MD Work Phone: 1(838)03092 [address]09-06-2024 10:54-0400Heart rate 71 /minBrianna Brunner MD Work Phone: 1(945)7[address]92 [address]09-06-2024 10:54-0400Systolic blood qhytgvhr579 mm[Hg]Brianna Brunner MD Work Phone: 1(810)05992 [address]02-26-2024 11:05-0500Body mass index (BMI) [Ratio]31.54 kg/m2Brianna Brunner MD Work Phone: 1(055)[address] [place], [place] 6912502-26-2024 11:05-0500Body uswqorzujik96.9 [degF]Brianna Brunner MD Work Phone: 1(241)[address]02-26-2024 11:05-0500Body xuflxz27.16 kgBrianna Brunner MD Work Phone: 1(113)[address]02-26-2024 11:05-0500Diastolic blood shnnbvcu63 mm[Hg]Brianna Brunner MD Work Phone: 1(029)[address] [place], [place] 6912502-26-2024 11:05-0500Heart rate 88 /minBrianna Brunner MD Work Phone: 1(715)[address] [place], [place] 6912502-26-2024 11:05-0449RbE4% (BldA) [Mass fraction]95 %Brianna Brunner MD Work Phone: 1(771)54592 [address]02-26-2024 11:05-0500Systolic blood ixepycgv323 mm[Hg]Brianna Brunner MD Work Phone: 1(274)[address]01-29-2024 08:30-0500Body .6 cmBrianna Brunner MD Work Phone: 1(167)32092 [address]01-29-2024 08:30-0500Body mass index (BMI) [Ratio]31.09 kg/m2Brianna Brunner MD Work Phone: 1(506)[address]01-29-2024 08:30-0500Body byqgeq61.8 kgBrianna Brunner MD Work Phone: 1(598)[address]01-29-2024 08:30-0500Diastolic blood pxmkonhu38 mm[Hg]Brianna Brunner MD Work Phone: 1(822)789-[address] [place], [place] 2526201-29-2024 08:30-0500Heart rate 69 /Kelley Brunner MD Work Phone: 1(558)424-[address] [place], [place] 2526201-29-2024 08:30-0500Systolic blood mm[Hg]Brianna Brunner MD Work Phone: 1(710)918-[address] [place], [place] 2526212-29-2023 08:26-0500Blood Pressure LocationPatristonjuanito MADDOX [facility]12-29-2023 08:26-0500Body jjgztoknkcj87.16 [degF]Maia MADDOX [facility]12-29-2023 08:26-0500Diastolic blood asgrbvwd45 mm[Hg]Maia MADDOX [facility]12-29-2023 08:26-0500Heart rate65 /minMaia MADDOX [facility]12-29-2023 08:26-0500Systolic blood nntygglp254 mm[Hg]Maia MADDOX [facility]04-17-2023 08:52-0400Blood Pressure LocationPacelena MADDOX [facility]04-17-2023 08:52-0400Diastolic blood mm[Hg]Maia MADDOX [facility]04-17-2023 08:52-0400Heart rate76 /minMaia MADDOX [facility]04-17-2023 08:52-0400Respiratory rate16 /minPatrick MADDOX [facility]04-17-2023 08:52-0400Systolic blood apsldyct358 mm[Hg]Maiamike MADDOX [facility]11-04-2022 08:24-0400Blood Pressure LocationPatrick MADDOX [facility]11-04-2022 08:24-0400Diastolic blood mm[Hg]Maia MADDOX [facility]11-04-2022 08:24-0400Heart rate62 /minPatrick MADDOX [facility]11-04-2022 08:24-0400Respiratory rate16 /minPatrick MADDOX [facility]11-04-2022 08:24-0400Systolic blood jhntaapk891 mm[Hg]Maia MADDOX [facility]05-02-2022 09:05-0400Blood Pressure LocationPatrick MADDOX [facility] 05-02-2022 09:05-0400Diastolic blood mdedrlfa81 mm[Hg] Maia MADDOX [facility] 05-02-2022 09:05-0400Heart rate69 /minPatrick MADDOX [facility] 05-02-2022 09:05-0400Systolic blood mm[Hg] Maia MADDOX [facility] Encounters Encounter DateEncounter TypeCare ProviderFacilityStart: 02-02-2025 End: 20-27-4712Gqfmyg outpatient visit 15 Javier Arana MD Work Phone: [facility] Physicians Ear, Nose and ThroatComment on above:Sensation of fullness in right ear (Primary Dx); Tinnitus, bilateral; Mixed conductive and 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; Sensorineural hearing loss (SNHL) of left ear with restricted hearing of right earStart: 02-02-2025 End: 94-06-9689hvpiuqmikiARRHIOS J DISHERKettering Health PrebleComment on above:Sensation of fullness in right ear (Primary Dx); Tinnitus, bilateral; Mixed conductive and 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; Sensorineural hearing loss (SNHL) of left ear with restricted hearing of right earStart: 01-08-2025 End: 06-79-7015XhuqijFryhAnand Brunner MD Work Phone: [facility] Comment on above:Urticaria (Primary Dx)Start: 10-27-2024 End: 71-75-7780Ihnuvu outpatient visit 15 minutesBrianna Brunner MD Work Phone: [facility]ediatric[facility] Comment on above:Left inguinal pain (Primary Dx)Start: 10-27-2024 End: 66-17-3096qcskqwdjhlIATJ J [email or web address] Ambulatory PPGStart: 10-22-2024 End: 75-61-5803kvnimefzjiGabnov J GaleaFacility:EU [place]Start: 10-22-2024 End: 80-20-6541Yiigmsh encounter procedureGenia Liao [facility] Start: 07-29-2024 End: 78-11-1516Uslphm outpatient visit 10 minutesLogan Arana MD Work Phone: [facility] Ear, Nose and ThroatComment on above:Tinnitus, bilateral (Primary Dx); Mixed conductive and 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; Sensorineural hearing loss (SNHL) of left ear with restricted hearing of right earStart: 07-29-2024 End: 32-29-7761bnqczaktdvBCOKQIA J DISHERMercy Health St[facility] Ambulatory PPGStart: 07-22-2024 End: 21-72-7621Aadczn flowsheetNatalie A Felter JAVASCRIPT DEVELOPER-ACUTE CARE NURSE PRACTITIONER Work Phone: [facility] DERMStart: 07-22-2024 End: 56-49-4559Wkxfwt flowsheetNatalie A Felter JAVASCRIPT DEVELOPER-ACUTE CARE NURSE PRACTITIONER Work Phone: [facility] SWS DERMStart: 07-22-2024 End: 24-11-8497Ulgolz outpatient visit 15 minutesNatalie A Felter JAVASCRIPT DEVELOPER-ACUTE CARE NURSE PRACTITIONER Work Phone: [facility] DERMComment on above:Seborrheic keratosis (Primary Dx); Seborrheic keratosis, inflamed; Melanocytic nevus of trunk; Knutson angioma; History of nevus excision; History of basal cell carcinomaStart: 07-22-2024 End: 39-56-8421bxsstompytRMRDMOL A FELTERNot AvailableStart: 06-30-2024 End: 15-36-0069ifoqyrfvlzCzgrjme R WATERSFacility:EU [place]Start: 05-26-2024 End: 30-91-6474itgzmwaleeDnsipjz R WATERSFacility:EU [place]vueStart: 05-26-2024 End: 99-20-0981Gffwiil encounter procedureMaia [facility]ADDOX [facility] start: 05-23-2024 End: 59-57-3630ntlnmyoemlGKQDBHPK E PERRYFacility:EU evueStart: 05-23-2024 End: 39-82-1993Veocgms encounter procedureJENNIFER E MARILYN [facility] start: 05-15-2024 End: 52-84-2072irgpmcfbdzMjglqps [facility] Work Phone: Start: 05-15-2024 End: 97-65-6105Ikifvvsl ReferredMaia Maddox MD Work Phone: [facility]-LAB Path Spec [facility] HospStart: 05-15-2024 End: 79-86-3857keoeaipaarDuzsqie R WATERSFacility:CD:[id number]: 05-13-2024 End: 73-73-5424EpvgljYafyAnand Brunner MD Work Phone: [facility] Start: 05-09-2024 End: 05-91-2118MaajbnTnefAnand Brunner MD Work Phone: [facility] Start: 05-07-2024 End: 03-20-2750Cdtlanphr encounterLisa Lance RMAProMedleilani Physicians Internal Medicine/PediatricsStart: 34-25-5587vjrvxtgpcjChgdfec R WATERSFacility:EU ueStart: 05-01-2024 End: 91-84-4253Ywapooy encounter Alona Brunner MD Work Phone: [facility] Comment on above:Routine general medical examination at a health care facility (Primary Dx); Prostate cancer (CMS-HCC); Essential hypertension; Mixed hyperlipidemiaStart: 05-01-2024 End: 89-01-0962Likwhgo encounter Feng Brunner MD Work Phone: [facility] Work Phone: start: 05-01-2024 End: 48-99-6592oecsfttqbiTDWF J [facility] Hospitaltart: 13-89-6149Qajsbroky for general adult medical examination without abnormal findingsBRIANNA Mcghee [facility] PPGStart: 04-03-2024 End: 48-95-5420KqpcnvJhsnAnand Brunner MD Work Phone: [facility]ediatric[facility] Start: 03-31-2024 End: 39-05-2261brrkjulixnBcyvsrm R WATERSFacility:EU BellevueStart: 03-31-2024 End: 72-42-2463Jalkecm encounter procedureMaia MADDXO [facility] start: 02-20-2024 End: 48-22-8550Cqkdegwvz encounterJessica Health system - ENTStart: 02-19-2024 End: 28-17-4773Efyoqiom SupportMemorial Health System [facility] Ent Audio [address] [place] [address] Physicians Ear, Nose and ThroatComment on above:Tinnitus, bilateral (Primary Dx); Mixed conductive and 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; Sensorineural hearing loss (SNHL) of left ear with restricted hearing of right earStart: 02-05-2024 End: 91-67-5087ehieuxvswaPVBED L [facility] PPGStart: 02-05-2024 End: 49-81-6045Ahtgnk outpatient visit 25 minutesEllejomar Bunn [facility] Work Phone: [facility] Physicians Ear, Nose and ThroatComment on above:Tinnitus, bilateral (Primary Dx); Mixed conductive and 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; Abnormal CT scan, sinus; Patulous eustachian tube of right earStart: 01-15-2024 End: 83-45-8765gvaiffnwbdFNWM J [facility] Centertart: 01-14-2024 End: 62-08-7549Dgrsxm OnlyBrianna Brunner MD Work Phone: [facility] Internal Medicine/Pediatrics Comment on above:Edema of right upper arm (Primary Dx)Start: 01-08-2024 End: 41-78-2439alsssjludiLEEPCI [facility] Start: 01-06-2024 End: 83-40-6289Jycfeo Linsey Brunner MD Work Phone: [facility]ediatric[facility] Start: 01-05-2024 End: 18-10-0681WyeovjQddvAnand Brunner MD Work Phone: [facility]Pediatrics Start: 01-03-2024 End: 81-48-8628Lcflhnafh encounterLisa Lance [facility] Physicians Internal Medicine/PediatricsStart: 01-02-2024 End: 41-49-2121Vyfrkb outpatient visit 15 minutesLogan Arana MD Work Phone: [facility] - ENTComment on above:Right ear pain (Primary Dx); Mixed conductive and 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; Mastoiditis of right sideStart: 01-02-2024 End: 35-77-3571uoeqrxepuxKRSJPGZ J DISHERMercy Health Defiance Hospitaltart: 01-01-2024 End: 06-50-6582Riiosqnfw encounterLogan Arana MD Work Phone: [facility] - ENTComment on above: Transition Of CareStart: 12-26-2023 End: 39-86-1987uhrmolhksuAITUGOP L. JOHNSONMercy Health Defiance Hospitaltart: 12-26-2023 End: 10-73-4063Auhpeyjgby and management of inpatientBRIANNA BRUNNEROhioHealth Marion General Hospital SystemComment on above:Mastoiditis of right side (Primary Dx); 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; Acute swimmer's ear of right sideStart: 12-26-2023 End: 38-25-1649Tycvie outpatient visit 25 minutesOscar Johnson MD Work Phone: [facility] - ENTComment on above:Right ear pain (Primary Dx); Mixed conductive and 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; Acute middle ear effusion, right; Mastoiditis of right sideStart: 12-26-2023 End: 46-72-5545ooinrkifrmPVJFairfield Medical Centertart: 12-25-2023 End: 62-75-2430Elogha outpatient visit 15 minutesOscar Johnson MD Work Phone: [facility] - ENTComment on above:Acute swimmer's ear of right side (Primary Dx); Vertigo; Right ear pain; Sensorineural hearing loss (SNHL) of left ear with restricted hearing of right ear; Mixed conductive and 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; Middle ear effusion, rightStart: 12-25-2023 End: 83-27-3946bwjoagabxrDME R [facility]cy Hospitaltart: 12-20-2023 End: 13-22-5225Vsgsbye encounter procedureYue Espinoza APRN-ACUTE CARE NURSE PRACTITIONER Work Phone: [facility] Ear, Nose and ThroatComment on above:Acute swimmer's ear of right side (Primary Dx)Start: 12-19-2023 End: 43-33-4349Zkwsbjnto encounterRussell Forbes MD Work Phone: [facility] ENTStart: 12-17-2023 End: 66-53-1045Tfxlbnw encounter procedureRussell Forbes MD Work Phone: [facility] Physicians Ear, Nose and ThroatComment on above:Acute swimmer's ear of right side (Primary Dx); Mixed conductive and 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; Acute swimmer's ear, unspecified lateralityStart: 12-17-2023 End: 92-40-3053Nndsxopk SupportPp Ent Audio 1PHood [facility] Physicians Ear, Nose and ThroatComment on above:Mixed conductive and 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 (Primary Dx); Sensorineural hearing loss (SNHL) of left ear with restricted hearing of right ear; Otorrhea, right; Right ear painStart: 12-16-2023 End: 79-74-6474Spoubc Linsey Brunner MD Work Phone: [facility] Internal Medicine/Pediatrics Comment on above:Acute swimmer's ear, unspecified laterality (Primary Dx); Acute swimmer's ear of right sideStart: 12-12-2023 End: 09-75-1991Myeitddlk encounterAshley Hanley Physicians Internal Medicine/PediatricsStart: 12-10-2023 End: 87-33-0175Rsvgnb outpatient visit 15 Jie Brunner MD Work Phone: [phone] [place] [address] Physicians Internal Medicine/Pediatrics Comment on above:Acute swimmer's ear of right side (Primary Dx)Start: 12-05-2023 End: 72-06-1227Qmpizxwbt Pavan Brunner MD Work Phone: [facility] Medicine[facility]Pediatrics Start: 11-30-2023 End: 93-79-4709Pkbnzw outpatient visit 15 Jie Brunner MD Work Phone: [phone] [place] [address] Physicians Internal Medicine/Pediatrics Comment on above:Acute swimmer's ear of right side (Primary Dx)Start: 08-07-2023 End: 86-54-1251Bqxvofzjx encounterAshley Hanley Physicians Internal Medicine/PediatricsStart: 07-06-2023 End: 36-89-1377NnfduxAhsrAnand Brunner MD Work Phone: [facility] Internal Medicine/Pediatrics Start: 81-91-9264Uxzfkdfwf Pavan Brunner MD Work Phone: p[facility]St[facility] Hospitalleilani Physicians Internal Medicine/Pediatrics Start: 05-24-2023 End: 43-96-0021dqcnqcebhmJTCCUK P GUDZSt. [facility] of God [facility] Start: 50-91-8978TlmuabFpgvktpwu Lamson CMAACMC Healthcare System Physicians Internal Medicine/PediatricsStart: 05-21-2023 End: 62-06-8085Sgzeom outpatient visit 15 Jie Brunner MD Work Phone: [facility] Internal Medicine/Pediatrics Comment on above:Bronchitis (Primary Dx); Acute pain of left shoulderStart: 93-73-5086VdxfiuJqpbCuba Brunner MD Work Phone: [facility] Internal Medicine/Pediatrics Start: 04-23-2023 End: 40-78-6428Bzpgutw encounter Alona Brunner MD Work Phone: [facility] Internal Medicine/Pediatrics Comment on above:Routine general medical examination at a health care facility (Primary Dx); Essential hypertension; Prostate cancer ([facility]-HCC); Chronic gout involving toe without tophus, unspecified cause, unspecified laterality; Mixed hyperlipidemia; Asthma in adult, mild persistent, uncomplicatedStart: 04-23-2023 End: 44-15-7044Xujmiza encounter Feng Brunner MD Work Phone: [facility] Work Phone: start: 21-24-8230PkbdrxWpiuCuba Brunner MD Work Phone: [facility] Internal Medicine/Pediatrics Start: 03-23-2023 End: 87-32-7029Kaeocru encounter procedureMaia MADDOX [facility] start: 07-10-2022 End: 87-14-1889Aplxake encounter procedurePacelena MADDOX [facility] start: 07-07-2022 End: 06-24-9656uonvbxydtwOSTasia MADDOX .Facility:E1Fmkeq: 01-27-2022 End: 32-73-1682Jzrpiiw encounter procedureMaia MADDOX [facility] start: 01-18-2022 End: 54-41-4325ioqbipfvzqXGTasia MADDOX .Facility:T5Lqgif: 07-25-2021 End: 36-39-5388Bnvvcqq encounter procedurePatricjuanito Frank MADDOX [facility] Analisa start: 07-19-2021 End: 93-95-7268lvxfssltatJH MAIA MADDOX .Facility:Y0Xmzar: 05-31-2017 End: 54-25-1488FwrwjqjzbaVUBP JOSEPH HIESTANDFacility:ENT Spec-WexfordStart: 05-23-2017 End: 19-54-0876KcsadoszetWYKU JOSEPH HIESTANDFacility:[facility] Procedures DateProcedureProcedure DetailPerforming ClinicianStart: 29-01-3250GDSLFPQZBJT SKIN LESIONNatalie A Felter JAVASCRIPT DEVELOPER-ACUTE CARE NURSE PRACTITIONER Work Phone: Start: 34-99-4996AvtmrrgoeqbidrDTQWRLEP MARILYN Start: 27-66-1143Cfkbm depression screening assessment Brianna Brunner MD Work Phone: start: 48-73-1748Ygwgp count complete auto&auto difrntl wbcHibpineda Menendez MD Work Phone: Start: 13-34-7216Vwjsx metabolic panel calcium total Georgie Menendez MD Work Phone: Start: 62-00-7759Jkzuc metabolic panel calcium total Trey Lundy MD Work Phone: Start: 67-80-9934Vfzeg metabolic panel calcium total Trey Lundy MD Work Phone: Start: 82-72-1492Hoclg metabolic panel calcium total Trey Lundy MD Work Phone: Start: 21-35-5266IWUXO OXIMETRY, SPOTTrey Lundy MD Work Phone: Start: 88-51-9326Ph orbit sella/post fossa/ear w/contrast Rachel Mata DO Work Phone: Start: 67-62-0963Sr soft tissue neck w/contrast materialFadi Mata DO Work Phone: Start: 08-75-9382Onblj metabolic panel calcium total Yohan Tran MD Work Phone: Start: 59-92-9056Qvilwga bacterial blood aerobic w/id isolatesRugerhard Oni Dada TRAN Work Phone: Start: 31-13-7456Yxuesi-up visitFollow-upOSCAR JOHNSON Start: 24-86-5529Qtldj depression screening assessmentOscar Johnson MD Work Phone: Start: 40-08-2040Bccqp dip stick/tablet rgnt non-auto w/o micrscpBrianna Brunner MD Work Phone: start: 52-64-7463Fxtbq depression screening assessment Brianna Brunner MD Work Phone: start: 73-30-9490BeoblhcxopjIylq Hiestand MD Work Phone: start: 62-51-5986IJN screeningDR MAIA MADDOX . Comment on above:Performed By: #### PSAD #### [facility] [address] [place] [address] Dr. Markel Myersart: 79-98-3673Lowoy depression screening assessmentBrianna Brunner MD Work Phone: start: 49-94-3164VDK screeningDR MAIA MADDOX . Comment on above:Performed By: #### PSAD #### [facility] [address] [place] [address] Dr. Markel Myersart: 98-83-6603SFO screeningDR MAIA MADDOX .Comment on above:Performed By: #### PSAD #### [facility] [address] [place] [address] Dr. Markel Ivey: 82-10-6768Sihbfux prostatectomyPatrick MADDOX Start: 61-19-1165Zhnggztoirk biopsy of prostatePatrick MADDOX appendectomyPatrick MADDOX arthroplasty of kneePatrick MADDOX ColonoscopyPatrick MADDOX H/O: surgeryHistory of nevus excisionAlena Marks APRN-KATY Work Phone: Plan of Treatment DateCare ActivityDetailAuthorStart: 16-73-9471Ddbcboaez for malignant neoplasm of colonNONM HealthcareStart: 58-81-9110Exyjfogec for malignant neoplasm of colonColonoscopyProKeenan Private Hospital SystemStart: 75-84-7152WOoG,Tdap and Td Vaccines (3 - Td or Tdap)DTaP,Tdap and Td Vaccines (3 - Td or Tdap)[facility] SystemStart: 91-98-9624Gvnxu BMI ScreeningAdult BMI ScreeningOhioHealth Marion General Hospital SystemStart: 22-67-7988Nybyd BMI ScreeningAdult BMI ScreeningOhioHealth Marion General Hospital SystemStart: 25-83-5081Oykryty ScreeningTobacco ScreeningOhioHealth Marion General Hospital SystemStart: 96-17-8425Rafxy BMI ScreeningAdult BMI ScreeningOhioHealth Marion General Hospital SystemStart: 13-79-2665Tyjsjvo ScreeningTobacco ScreeningOhioHealth [facility] Hospital System Start: 07-28-2025 End: 51-90-1561Pqrafay encounter nqkbkhpta16/05/2026 9:45 AM EDT Office Visit [facility] [facility] [address] [place] [address] Logan Arana MD [address] [place] [address] [address] [place], [place] [address] [facility], Nose and ThroatStart: 07-23-2025 End: 64-79-2325Amikwch encounter hqeavdzyj43/30/2026 10:05 AM EDT Office Visit [facility] [address] [place] [address] Alena Marks APRN-KATY [address] [place] [address] [facility] DERMStart: 05-06-2025 End: 88-99-8423Xmebkba encounter zskzavjcl83/11/2026 9:00 AM EST Office Visit [facility] [address] [place] [address] [address] [place] [address] Brianna Brunner MD [address] [place] [address], [address] [place], [place] [id number] [facility] Internal Medicine/PediatricsStart: 05-05-2025 End: 97-50-3613Wafmjmrifdmcq hearing testComprehensive hearing test Audiology Routine Mixed conductive and 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 Sensorineural hearing loss (SNHL) of left ear with restricted hearing of right ear Expected: 05/05/2025 (Approximate), Expires: 02/02/2026[facility] Work Phone: Comment on above:Expected: 05/05/2025 (Approximate), Expires: 02/02/2026Start: 86-38-0144Walaw BMI ScreeningAdult BMI Screening [facility] SystemStart: 30-44-0751Rnrwstycej ScreeningDepression Screening [facility] SystemStart: 71-15-1827Zafa Risk ScreeningFall Risk Screening [facility] SystemStart: 02-06-2026Medicare Annual Wellness VisitMedicare Annual Wellness VisitOhioHealth Marion General Hospital SystemStart: 13-70-2573Smjpssl Screening Tobacco ScreeningOhioHealth Marion General Hospital SystemStart: 04-20-2025 End: 09-44-2211Uzshodgw SupportProMedica Physicians Ear, Nose and ThroatStart: 89-67-5208xiajfyayehDgjaztstyxCdygrsnc:EU BellevueStart: 11-22-2849Kbfxr BMI ScreeningAdult BMI ScreeningProKeenan Private Hospital SystemStart: 03-56-7040Jqafupc ScreeningTobacco ScreeningProKeenan Private Hospital SystemStart: 40-89-0288Hgtmp BMI ScreeningAdult BMI ScreeningProKeenan Private Hospital SystemStart: 64-08-1315Iirud BMI ScreeningAdult BMI ScreeningProMedica Health SystemStart: 81-03-6347Ohuabavran ScreeningDepression ScreeningProMedica Health SystemStart: 60-59-7207Gwztdjb ScreeningTobacco ScreeningProMedica Health SystemStart: 69-86-7454Awafy BMI ScreeningAdult BMI ScreeningProMedica Health SystemStart: 83-19-6020Lbnrmom ScreeningTobacco ScreeningProMedica Health SystemStart: 71-72-2010Jdueh BMI ScreeningAdult BMI ScreeningProMedica Health SystemStart: 64-60-6411Stuggzr ScreeningTobacco ScreeningProMedica Health SystemStart: 66-69-7565Xhcgkzm ScreeningTobacco ScreeningProMedica Health SystemStart: 22-64-4628Vatrc BMI ScreeningAdult BMI ScreeningProMedica Health SystemStart: 84-98-7020Niplnwk ScreeningTobacco ScreeningProMedica Health SystemStart: 15-70-8457Fnace BMI ScreeningAdult BMI ScreeningProMedica Health SystemStart: 71-06-5017Dbvvbaf ScreeningTobacco ScreeningMayo Memorial HospitalMedica Health SystemStart: 73-19-3612Qbjdt BMI ScreeningAdult BMI ScreeningProMedica Health SystemStart: 45-76-2761Lnxklui ScreeningTobacco ScreeningKindred Hospital Limaca Health SystemStart: 37-82-1624SWXGY-19 Vaccine ( season)COVID-19 Vaccine ()[facility] SystemStart: 65-94-2712Qircvokel vaccinationOGDEN REGIONAL [facility] HealthcareStart: 07-29-2024 End: 11-11-2154Mxzzoiq encounter gstpovllh04/06/2025 8:45 AM EDT Office Visit [facility] [place] [address] Logan Arana MD [address] [place], [place] [id number] [facility], Nose and ThroatStart: 07-22-2024 End: 05-11-0005Kewjqok encounter gbdfjmuye75/29/2025 10:35 AM EDT Office Visit [facility] [address] [place] [address] Alena Marks APRN-ACUTE CARE NURSE PRACTITIONER [address] [place] [address] ArrivedNOMS SWS DERMComment on above: ArrivedStart: 45-70-1341Hiqsu BMI ScreeningAdult BMI ScreeningProTogus Va Medical Centerca Health SystemStart: 02-43-8758Edecqyc ScreeningTobacco ScreeningProKeenan Private Hospital System Start: 05-01-2024 End: 00-29-6651Fbnrswn encounter /06/2025 8:30 AM EST Office Visit [facility] [address] [place] [address] [address] [place] [address] Brianna Brunner MD [address] [place] [address], [address] [place], [place] [id number] [facility] Internal Medicine/PediatricsStart: 04-24-2024 End: 96-81-3699Udrbpgn encounter unbevuozo19/30/2025 8:30 AM EST Office Visit [facility] [address] [place] [address] [address] [place] [address] Brianna Brunner MD [address] [place] [address], [address] [place] [address] [facility] Internal Medicine/PediatricsStart: 20-04-2017Fxcbi BMI ScreeningAdult BMI Screening ProMLakewood Health System Critical Care [facility] SystemStart: 90-63-6776Zrqvncnnsi ScreeningDepression Screening ProMLakewood Health System [facility] Care [facility] SystemStart: 13-89-7650Uqbg Risk ScreeningFall Risk Screening ProMLakewood Health System [facility] SystemStart: 01-29-2025Medicare Annual Wellness VisitMedicare Annual Wellness VisitProKeenan Private Hospital SystemStart: 24-46-3742Bpisvrn Screening Tobacco ScreeningProKeenan Private Hospital SystemStart: 11-27-7737Yunko BMI Screening Adult BMI ScreeningProKeenan Private Hospital SystemStart: 87-76-2437Aymzqds Screening Tobacco ScreeningProKeenan Private Hospital SystemStart: 02-19-2024 End: 23-86-7583Etevclpa Mwfaqgv3902/19/2024 3:30 PM EST Clinical Support [facility] [address] [place] [address] [phone] Physicians Ear, Nose and ThroatStart: 01-15-2024 End: 50-12-3646Iinzyrx encounter vimxilqtx73/22/2024 10:30 AM EDT Appointment [facility] [address] [place] [address] Brianna Brunner MD [address] [place] [address], [address] [place], [place] [id number] [facility] VascularStart: 01-14-2024 End: 69-37-6782SR.doppler Upper extremity vein - rightVas venous duplex upr single right Vascular Ultrasound Routine Edema of right upper arm Expected: , Expires: 01/13/2025[facility] Work Phone: comment on above:Expected: 01/14/2024, Expires: 01/13/2025Start: 01-02-2024 End: 19-51-6756Wvpgovn encounter rbtycutmg70/09/2024 2:30 PM EDT Office Visit [facility] [address] [place] [address], [address] [place] [address] [place] [address] [place] [address] [address] [place] [address] [facility] - ENTStart: 12-26-2023 End: 38-19-3536Ihhqlxg encounter okbsktqdn24/02/2024 11:00 AM EDT Office Visit [facility] [address] [place] [address], [address] [place] [address] Oscar Johnson MD [address] [facility] [address] [place] [address] [facility] - ENTStart: 12-25-2023 End: 67-59-6079Hcbqymr encounter fstqncibd88/01/2024 9:00 AM EDT Office Visit [facility] [address] [facility] [address] [place] [address] Russell Forbes MD [address] [facility], [address] [place] [address] [facility], Nose and ThroatStart: 12-20-2023 End: 18-46-9741Rfyzdpr encounter lvruxscrh39/26/2024 9:15 AM EDT Office Visit [facility] [address] [facility] [address] [place] [address] Yue Espinoza APRN-KATY [address] [facility], [address] [place] [address] [facility], Nose and ThroatStart: 12-17-2023 End: 44-22-1840Vmgsnovz SupportProMedica Physicians Ear, Nose and ThroatStart: 67-47-6883WHLVQ-19 Vaccine ( season)COVID-19 Vaccine ( season)[facility]MLakewood [facility] SystemStart: 52-11-9680CICRR-19 Vaccine ( season)COVID-19 Vaccine ( season)[facility] Health SystemStart: 01-27-0905Cnafvkdyc vaccinationInfluenza VaccineProTogus Va Medical Centerca Health SystemStart: 04-23-2023 End: 35-86-7458Pbesnqv encounter brzukztqa83/29/2024 8:30 AM EST Office Visit [facility] [address] [facility] [address] [place] [address] Brianna Brunner MD [facility], [address] [place] [address] [facility] Physicians Internal Medicine/PediatricsStart: 95-24-4601Rtdtytiail ScreeningDepression Screening [facility] Centertart: 07-61-2894Hgtb Risk ScreeningFall Risk Screening [facility] Centertart: 01-25-2024Medicare Annual Wellness VisitMedicare Annual Wellness VisitLake Norman Regional Medical Centertart: 43-32-2763AMWHY-19 Vaccine ( season)COVID-19 Vaccine ()[facility] Start: 59-98-7185XBqH,Tdap and Td Vaccines (2 - Td or Tdap)DTaP,Tdap and Td Vaccines (2 - Td or Tdap)[facility] Centertart: 20-22-2742Xapuofhoq aortic aneurysm screeningAbdominal Aortic Aneurysm (AAA) ScreenProEast Liverpool City Hospitaltart: 56-15-0944Hwnrx BMI Follow Up PlanAdult BMI Follow Up PlanLake Norman Regional Medical Centertart: 64-38-9855Jfmmyqrjo for malignant neoplasm of colonPershing Memorial Hospital End: 20-32-1702Chwchataeqqpg hearing testComprehensive hearing test Audiology Routine Tinnitus, bilateral 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 1 Occurrences starting 02/05/2024 until 02/04/2025[facility] Work Phone: Comment on above:1 Occurrences starting 02/05/2024 until 02/04/2025 End: 77-10-4184Fdhhjbwdoazuj metabolic 2000 panel - Serum or PlasmaComprehensive metabolic panel Lab Routine Essential hypertension 1 Occurrences starting 05/01/2024 until 05/01/2025[facility] Work Phone: comment on above:1 Occurrences starting 05/01/2024 until 05/01/2025 End: 42-48-5348Mdaamljvbfhzo metabolic 2000 panel - Serum or PlasmaComprehensive metabolic panel Lab Routine Essential hypertension 1 Occurrences starting 04/23/2023 until 04/23/2024[place] Work Phone: comment on above:1 Occurrences starting 04/23/2023 until 04/23/2024omprehensive metabolic 2000 panel - Serum or Plasma Comprehensive metabolic panel Lab Routine Essential hypertension 04/23/2023 9:25 AM PPI End: 04-52-1692Yknfggk aid biaural evaluationHearing aid biaural evaluation Audiology Routine Tinnitus, bilateral Mixed conductive and 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 1 Occurrences starting 02/05/2024until 02/04/2025[facility] HospitalSanovia Corporation SystemComment on above:1 Occurrences starting 02/05/2024 until 02/04/2025Lipid 1996 panel - Serum or PlasmaLipid profile Lab Routine Mixed hyperlipidemia 04/23/2023 9:25 AM PPI End: 91-75-9867Plesg panelLipid panel Lab Routine Mixed hyperlipidemia 1 Occurrences starting 05/01/2024 until 05/01/2025[facility] HospitalTherasisComment on above:1 Occurrences starting 05/01/2024 until 05/01/2025 End: 68-23-4617Wrzhz panelLipid panel Lab Routine Mixed hyperlipidemia 1 Occurrences starting 04/23/2023 until 04/23/2024[facility] HospitalTherasisComment on above:1 Occurrences starting 04/23/2023 until 04/23/2024 End: 77-75-8946Zvgsy [Mass/volume] in Serum or PlasmaUric acid Lab Routine Chronic gout involving toe without tophus, unspecified cause, unspecified late rality 1 Occurrences starting 04/23/2023 until 04/23/2024[employer] Comment on above:1 Occurrences starting 04/23/2023 until 04/23/2024Urate [Mass/volume] in Serum or PlasmaUric acid Lab Routine Chronic gout involving toe without tophus, unspecified cause, unspecified laterality 04/23/2023 9:25 AM PPI Immunizations Immunization DateImmunizationNotesCare KvjjjxbfDmgksrod57-71-2122cjpqspfvf virus vaccine, unspecified formulationNESHAELMA SANDERS [facility]10-07-2024influenza, seasonal, injectable, preservative freeGeorgie Menendez MD Work Phone: [facility]10-02-2024flu vacc [id number] 6mos up(PF) (FLULAVAL/FLUZONE/FLUARIX TRIV) injection syringe 0.5 mLGeorgie Menendez MD Work Phone: [facility]bleSumpew15-89-0252Jalbz-91,mrna, Lnp-s, Pf, 50mcg/0.5ml 12+Oscar Johnson MD Work Phone: [facility]bleHznnhs54-02-5991yjwumnssh virus vaccine, unspecified formulationLarryFAB BAGjuanito MADDOX [facility]10-11-2023Influenza, High-dose, QuadrivalentOscar Johnson MD Work Phone: [facility]10-11-2023RSV vaccine, preF A- preF B, recombinantAlysha Galea [facility] 240520-11-2023RSV, bivalent, protein subunit RSVpreF, diluent reconstituted, 0.5 mL, PFOscar Johnson MD Work Phone: [facility]10-11-2023zoster vaccine recombinantPaFAB BAGk MADDOX [facility]11-15-2022influenza virus vaccine, unspecified formulationMaia MADDOX [facility]11-15-2022Influenza, High-dose, QuadrivalentOscar Johnson MD Work Phone: [facility]bleHodnfl54-16-0822GZYE-YhZ-0 (COVID-19) mRNAMUL.ORD!g80460IbbooosMaia MADDOX [facility]08-02-2022Covid-19, Mrna, Lnp-s, Pf, 30 Mcg/0.3 Ml Dose, Lam-sucroseOscar Johnson MD Work Phone: [facility]bleOqbbvl95-39-3133KAQA-AtP-8 mRNA (agzvfhgdnzt-zwaw-inrbbas) vaccinePaVictorOps [facility]10-22-2021influenza virus vaccine, unspecified formulationPaVictorOps [facility]10-22-2021Influenza, High-dose, QuadrivalentBrianna Brunner MD Work Phone: pOhio[facility] HospitalImlgii48-64-6855HUTJ-PmL-1 (COVID-19) mRNA BNT-162b2 vaxDocebo [facility]10-14-2021influenza virus vaccine, unspecified formulationPaVictorOps [facility] [id number]-JcU-5 (COVID-19) mRNA BNT-162b2 vax Maia MADDOX [facility]03-08-2021SARS-CoV-2 (COVID-19) mRNA-1273 vaccinePaVictorOps [facility]03-04-2021SARS-CoV-2 (COVID-19) mRNA BNT-162b2 vaxDocebo [facility] CenterComment on above:Result Comment: 2023-03-23: [id number]-HrW-8 (COVID-19) Ad26 vaccine, recombinantPaFAB BAGk [employer] [facility] comment on above:Result Comment: Pt is unsure which vaccine he had and also does not know the uiyea30-30-2474exzqftkwt virus vaccine, unspecified formulationPaFAB BAGk [employer] [facility]10-21-2020influenza, high dose seasonal, preservative-freeBrianna Brunner MD Work Phone: [facility] [employer] Xrcuiu79-81-2931smfrvertx virus vaccine, unspecified formulationPatrick [employer] [facility]10-21-2019influenza virus vaccine, unspecified formulationPatrick [employer] [facility]10-21-2019influenza, high dose seasonal, preservative-freeBrianna Brunner MD Work Phone: pLEID Productsnol[facility] hospital [facility] [employer] Ihdwtd60-74-3099phnbzs vaccine recombinantPatrick [employer] [facility]12-12-2018zoster vaccine recombinantPatrick [employer] [facility]10-16-2018influenza virus vaccine, unspecified formulationPatrick [employer] [facility]10-16-2018influenza, high dose seasonal, preservative-freeBrianna Brunner MD Work Phone: [phone] [place] [address] [employer] Undsrr95-46-0312mmtkmpigtfje polysaccharide vaccine, 23 valentPatrick [employer] [facility]11-06-2017influenza virus vaccine, unspecified formulationPatrick [employer] [facility]11-06-2017influenza, high dose seasonal, preservative-freeBrianna Brunner MD Work Phone: [phone] [place], [place] [address]Lpwenw37-06-0031ktdwgpwrc virus vaccine, unspecified formulationBrianna Brunner MD Work Phone: [phone] [place], [place] [address]Vdhymz43-49-3355kgvyahxop, unspecified formulationPatrick [employer] [facility]12-15-2016pneumococcal conjugate vaccine, 13 valentPatrick [employer] [facility]11-02-2015influenza virus vaccine, unspecified formulationBrianna Brunner MD Work Phone: [phone] [place], [place] [address]Mheoxl71-45-8142iyfyuerjm, unspecified formulationPatrick [employer] [facility]10-16-2014influenza virus vaccine, unspecified formulationBrianna Brunner MD Work Phone: [phone] [place], [place] [address]Fdplaq26-00-5556ssibmzcjh, unspecified formulationPatrick [employer] [facility]11-08-2013zoster vaccine, livePatrick [employer] [facility]08-27-2013tetanus toxoid, reduced diphtheria toxoid, and acellular pertussis vaccine, adsorbedPatrick [employer] [facility] Payers DatePayer CategoryPayerPolicy [id number] Care Other (unspecified)[facility] .[id number] [id number] Health Insurance [id number] [id number] 1960 [id number] 2.840.1.943256.3.579.2.593 [id number] 2.16840.1.018291.3.57[id number] 2.840.1.280975.3.57[id number] 2.840.1.758343.3.57[id number] 2.840.1.476585.3.57[id number] 2.16840.1.894308.3.57[id number] 2.840.1.510231.3.57[id number] 2.840.1.085856.3.57[id number] 2.16.840.1.963378.3.57[id number] 2.840.1.986838.3.57[id number] 2.840.1.330005.3.57[id number] 2.0.1.412316.3.57[id number] 2.840.1.204759.3.57[id number] 2.0.1.830353.3.57[id number] 2.0.1.539499.3.579.2.642 [id number] 2.0.1.385383.3.57[id number] 2.0.1.611397.3.57[id number] 2.0.1.368878.3.57[id number] 2.0.1.841961.3.57[id number] 2.0.1.017797.3.57[id number] 2.840.1.285908.3.57[id number] 2.840.1.078604.3.57[id number] 2.840.1.429502.3.57[id number] 2..840.1.246445.3.57[id number] 2.16.840.1.877955.3.57[id number] 2..840.1.379982.3.57[id number] 2..840.1.953867.3.57[id number] 2.16.840.1.84[id number] 2.16.840.1.565335.3.579.2.531 Social History DateTypeDetailFacilityStart: 07-25-2021 End: 36-56-5773Sypbect smoking statusEx-smoker (finding)[facility] comment on above:Quit 35 years agoStart: 05-03-2020 End: 15-22-3737Oko Assigned At BirthMaleEunc health [facility] start: 03-23-2023 End: 71-22-7465Uvxnehm smoking statusNever smoked tobacco (finding)[facility] CenterTobacco smoking statusNever [facility] CenterComment on above:Quit 35 years agoHistory of tobacco useCurrent smokerProMedica Health SystemHistory of tobacco useCigarette SmokerProTogus Va Medical Centerca Health SystemStart: 07-23-2023 End: 13-15-8816Nanyfwr use and exposureSmokeless tobacco non-userProDecatur [facility] Health SystemStart: 02-05-2024 End: 12-98-7998Gkxqhwrqv beverage intakeCurrent drinker of alcohol (finding) [facility] SystemStart: 05-03-2020 End: 49-15-5107Clyqtgnri beverage intakeProDecatur [facility] Hospital-[facility] Health SystemHas the [employer], gas, oil, or water company threatened to shut off services in your home in past 12MoNoProMedica Health SystemDo you belong to any clubs or organizations such as confucianism groups, unions, fraternal or athletic groups, or school groups?Yes [facility] SystemAre you now , , , , never or living with a partner?MarriedProTogus Va Medical Centerca Health SystemHow often to you have a drink containing alcohol?4 or more times a weekProTogus Va Medical Centerca Health SystemHow many standard drinks containing alcohol do you have on a typical day?1 or 2 ProMtanner medical center east alabamaa Health SystemHow often do you have 6 or more drinks on 1 occasion?Less than monthlyProDecatur [facility] Hospital-[facility] Health SystemHow hard is it for you to pay for the very basics like food, housing, medical care, and heatingNot very hardProDecatur [facility] Health SystemDo you feel stress - tense, restless, nervous, or anxious, or unable to sleep at night because yourmind is troubled all the time - these days [OSQ]Not at allOhioHealth Marion General Hospital SystemStart: 52-93-2591Ircdcopbe71PqrAjjerv Health SystemStart: 80-24-8207Kzz assigned at birthNot on fileLake Norman Regional Medical Centertart: 10-27-2014 End: 97-89-1264DdhCjys (finding)[facility] SystemHow often to you have a drink containing alcohol?2-4 times a monthOhioHealth [facility] General Hospital SystemTobacco smoking status NHISUnknown if ever smokedFirelands Regional Medical Center Work Phone: Start: 21-27-8833Eiu Assigned [facility]woodstart: 07-23-2023 End: 92-71-2197Mhhndxdkz beverage intakeDeferNOMS HealthcareSexual Orientation [facility] Functional Status DxpxNjicyyvgatMgzxrmGywfldop52-47-3351Bgbxgdxiwn StatusN/AExec[facility]02-28-2025Functional StatusN/A[facility]01-06-2025Functional StatusN/A [facility]12-29-2023Functional StatusN/A[facility]04-17-2023 Functional StatusN/A[facility] 66-52-2086Jczgbapnlm StatusN/AExec[facility] Clinical Notes 07-06-2020 to 02-02-2025 Note Date & RbozNnbuDgutqspv08-78-5114 History of Present illness Narrative* Logan Arana MD - 02/02/2025 2:45 PM EST Images from the original note were not included. Patient ID: Yue Delgadillo is a 74 y.o. male. Chief Complaint: Chief Complaint Patient presents with Ear Fullness History: Yue Delgadillo is a pleasant 74 y.o. male who presents today for ear fullness with an audiogram prior. He states that he took a shower without his ear plugs 2 days ago and notes that he experienced otalgia for 3-4 hours after he showered. He notes constant tinnitus and admits to occupational loud exposure. Past History: The following portions of the patient's history were reviewed and updated as appropriate: MEDICATIONS Current Outpatient Medications: albuterol (PROVENTIL HFA;VENTOLIN HFA) 90 mcg/actuation inhaler, Inhale 2 puffs every 6 (six) hoursas needed for wheezing., Disp: 18 g, Rfl: 0 allopurinoL (ZYLOPRIM) 300 mg tablet, Take 1 tablet (300 mg total) by mouth in the morning., Disp: 90 tablet, Rfl: 3 amLODIPine (NORVASC) 10 mg tablet, Take 1 tablet (10 mg total) by mouth in the morning., Disp: 90 tablet, Rfl: 3 aspirin 81 mg, Take 1 tablet (81 mg total) by mouth in the morning., Disp: , Rfl: fluticasone propionate (FLOVENT HFA) 110 mcg/actuation inhaler, Inhale 2 puffs once daily. Patient only takes when sick, Disp: 12 g, Rfl: 3 hydrOXYzine (ATARAX) 25 mg tablet, Take 1 tablet (25 mg total) by mouth 3 (three) times a day as needed for itching., Disp: 30 tablet, Rfl: 0 msskhnhj-qyvz-PP-calcium &mins (THERAGRAN-M) 9 mg iron-400 mcg tablet, Take 1 tablet by mouth in the morning., Disp: , Rfl: omega-3 fatty acids-fish oil 300-1,000 mg capsule, Take 1,200 mg by mouth in the morning., Disp: , Rfl: omeprazole (PriLOSEC) 20 mg capsule, Take 2 capsules (40 mg total) by mouth in the morning., Disp: 180 capsule, Rfl: 3 simvastatin (ZOCOR) 20 mg tablet, Take 1 tablet (20 mg total) by mouth in the morning., Disp: 90 tablet, Rfl: 3 ALLERGIES Ciprofloxacin, Codeine, Erythromycin, Lanolin, Lisinopril, Meloxicam, Pork derived (porcine), and Sulfa (sulfonamide antibiotics) PAST MEDICAL HISTORY Past Medical History: Diagnosis Date Arthritis Asthma GERD (gastroesophageal reflux disease) Gout HL (hearing loss) Hyperlipidemia Hypertension Mastoiditis of right side 12/26/2023 Pneumonia Prostate cancer ([facility]) Visual impairment PAST SURGICAL HISTORY Past Surgical [...] fever and chills. HENT: Positive for ear pain (fullness) and tinnitus. Negative for ear discharge. Eyes: Negative for redness. Respiratory: Negative for cough. Gastrointestinal: Negative for vomiting. Endocrine: Negative for heat intolerance. Musculoskeletal: Negative for gait problem. Allergic/Immunologic: Negative for food allergies. Hematological: Does not bruise/bleed easily. Data Review: Audiogram 02/02/2025: Physicial Exam: Temp 36.6 C (97.9 F) Ht 175.3 cm (5' 9 ) Wt 94.6 kg (208 lb 9.6 oz) BMI 30.80 kg/m Constitution: Patient appears healthy, alert, oriented, with their usual voice, communication, and affect Head and Face: Normocephalic and Atraumatic. Facial nerve function normal Eyes: No Strabismus and EOM normal Ear: external ear normal, canal abnormal due to debris, right, and TM normal without fluid or infection Nose and Nasal Cavity: The external appearance, nasal mucosa, septum, and turbinates are unremarkable without drainage or lesion Oral Cavity: The lips, gums and teeth are unremarkable without mass or lesion. Neck: No asymmetry or mass, thyroid normal, no lymphadenopathy. Salivary glands normal. Cranial Nerves: Cranial nerves intact Procedure: PE Tube Removal with Paper Patch Myringoplasty Procedure Pre Op Diagnosis: Retained PE Tube Post Op Diagnosis: Same Procedure: PE Tube Removal with Paper Patch Myringoplasty Surgeon: Logan Arana MD Consent: Verbal Consent was obtained prior to the procedure. Anesthesia: None Complications: none Procedure note: With microscopic visualization, the PE tube was removed. A Paper Patch was placed to cover the perforation. CSF powder was administered. Assessment Impression: Retained PE tube removed with paper patch. Debris removed from right ear canal following water exposure Plan: - Results from audiogram completed prior to today's visit were reviewed, it indicated a significantdecline in hearing since the last audiogram preformed on 02/19/2024. - Microscopic examination was completed in office today. PE tube was removed and a paper patch was placed over the perforation. CSF powder was administered. - Continue to keep ears dry. - Follow-up in 3 months with and audiogram prior or as needed. Visit Diagnosis and Orders: Yue was seen today for ear fullness. Diagnoses and all orders for this visit: Sensation of fullness in right ear Tinnitus, bilateral Mixed conductive and 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 Sensorineural hearing loss (SNHL) of left ear with restricted hearing of right ear Scribe Statement: Scribed for and in the presence of LOGAN ARANA MD by Kayleigh Trent. Kayleigh Trent 02/02/25 1422 Kayleighnathaly Trent 02/02/25 1428 documented in this encounterK[facility] Instructions* Patient Instructions* Kayleigh Miley - 02/02/2025 2:45 PM EST - Results from audiogram completed prior to today's visit were reviewed, it indicated a significantdecline in hearing since the last audiogram preformed on 02/19/2024. - Microscopic examination was completed in office today. PE tube was removed and a paper patch was placed over the perforation. CSF powder was administered. - Continue to keep ears dry. - Follow-up in 3 months with and audiogram prior or as needed. documented in this encounterKettering Health [facility]11-10-2025 History of Present illness Narrative* Saira GordonCHARLENE - 02/02/2025 1:30 PM EST AUDIOLOGIC EVALUATION Reason for visit: CC: Patient here for recheck of hearing. He has a history of PET in the right ear. He reports getting water in his right ear while showering 2 days ago and states that his ear feels plugged. He has ahistory of constant bilateral tinnitus. He denies current otalgia, otorrhea, or left-ear issues. Previous testing, performed 02/19/24, revealed a mild to slight through 2000 Hz dropping to a severe to profound MHL in the right ear and essentially normal through 2000 Hz dropping to severe SNHL in the left. HISTORY: Changes in hearing: Right ear Tinnitus: Bilateral, constant Dizziness: yes- previous history Aural Fullness: Right ear Otalgia: No Otorrhea: No Other significant history: PET right ear RESULTS: Otoscopic Evaluation: Right Ear: PE tube visualized Left Ear: Unremarkable Immittance Measures: Right Ear: Unable to maintain hermetic seal for measurement Left Ear: Type A Pure Tone Audiometry: Right Ear: Moderate through 500 Hz rising to borderline normal at 1000 Hz sloping to a severe MHL Left Ear: WNL through 2000 Hz sloping to a severe SNHL In comparison to previous audio completed on 02/19/24, a significant decline of hearing sensitivitywas noted from 250-500 Hz. Reliability: good Speech Audiometry: SRT/MOLASSES AND CARAMEL OPERATOR in good agreement WRS: Right Ear: Excellent (96%) Left Ear: Good (88%) RECOMMENDATIONS: Follow up with Dr. Logan Arana Retest as medically necessary Eliseo Cummins, [facility]-A Catalog Library Assistant documented in this encounterKettering Health [facility]ble10-16-2025 Miscellaneous Notes* Telephone Encounter - Denise Norwood - 01/08/2025 10:51 AM EDT Cherise called, she said that Yue has a prescription for HCL 25 mg that he uses for hives. He isout and needs that refilled. Thanks, documented in this encounterKettering Health [facility]10-16-2025 Telephone encounter Note* Telephone Encounter - Denise Norwood - 01/08/2025 10:51 AM EDT Cherise called, she said that Yue has a prescription for HCL 25 mg that he uses for hives. He isout and needs that refilled. Thanks, [facility]08-04-[facility] History of Present illness Narrative* Brianna Brunner MD - 10/27/2024 11:30 AM EDT Subjective Patient ID: Yue Delgadillo is a 74 y.o. male. Comes in to discuss pain he had in his left groin. He was getting out of a car and he noted sharp pain. When he would cough or sneeze pain radiated to his left testicle. He was evaluated by his urologist and thought to have a hernia. His symptoms have completely resolved. He does not feel a lump orbump and he never felt a lump or a bump. Bowel movements normal. Urination normal. He was able to play golf without pain. The following portions of the patient's history were reviewed and updated as appropriate: allergies, current medications, past medical history, past social history, past surgical history, and problemlist. Review of Systems Objective Physical Exam Constitutional: Appearance: Normal appearance. Genitourinary: Comments: Left testicle is a little bit bigger than the right but there is no mass. History of surgery for hydrocele on the left. I appreciate no bulge in his left groin and the inguinal ring feels tight to me. Neurological: Mental Status: He is alert. Assessment/Plan Reviewed with him. I do not appreciate a hernia at this time. He is asymptomatic. I think it is fine for him to take the course of observation at this time. If he has return of symptoms they can be addressed at that time. Diagnoses and all orders for this visit: Left inguinal pain documented in this encounterKettering [facility]07-30-2025 Hospital Discharge instructions Patient Education 10/22/2024 11:45:25 Testicular Self-Exam Testicular Self-Exam A self-examination of your testicles (testicular self-exam) involves looking at and feeling your testicles for abnormal lumps or swelling. Several things can cause swelling, lumps, or pain in your testicles, including: Injuries. Inflammation. Infection. Buildup of fluids around the testicle (hydrocele). Twisted testicles (testicular torsion). Testicular cancer. You may be at risk for this if you have: ?A testicle that has not descended. ?Previously had testicular cancer. ?A family history of testicular cancer. General tips It is easiest to do a self-exam during or after a warm bath or shower. Testicles are harder to examine when you are cold because the muscles attached to the testicles retract and pull them up higher or into the abdomen. A normal testicle is egg-shaped and feels firm. It is smooth and not tender. It is normal to feel a firm, spaghetti-like cord at the back of your testicle. This is the spermatic cord. Do a self-exam once a month. How to do a testicular self-exam 1.Stand and hold your penis away from your body. 2.Look at each testicle to check for changes in appearance, such as swelling or changes in size or shape. 3.Roll each testicle between your thumb and forefinger, feeling the entire testicle. Feel for: Lumps. Swelling. Discomfort. 4.Check for swelling or tender bumps in the groin area. Your groin is where your lower belly (abdomen) meets your upper thighs. Contact a health care provider if: You find a bump or lump. This may be a small, hard bump that is the size of a pea. You have swelling, pain, or soreness in your testicle area. You see or feel any other changes in your testicles. This information is not intended to replace advice given to you by your health care provider. Make sure you discuss any questions you have with your health care provider. Document Revised: 12/25/2022 Document Reviewed: 12/25/2022 [employer] Patient Education 2023 [employer]. Follow Up Care 10/21/2024 15:31:25 With:VARSHA MCPHERSON, Maia Marie, URL Address: [address] [place], [place] [id number]- When: Unknown Comments:Appointment has already been scheduled [facility] 07-30-2025 NotePatient Education Urology Testicular Self-Exam A self-examination of your testicles (testicular self-exam) involves looking at and feeling your testicles for abnormal lumps or swelling. Several things can cause swelling, lumps, or pain in your testicles, including: ??? Injuries. ??? Inflammation. ??? Infection. ??? Buildup of fluids around the testicle (hydrocele). ??? Twisted testicles (testicular torsion). ??? Testicular cancer. You may be at risk for this if you have: ? A testicle that has not descended. ? Previously had testicular cancer. ? A family history of testicular cancer. General tips ??? It is easiest to do a self-exam during or after a warm bath or shower. Testicles are harder to examine when you are cold because the muscles attached to the testicles retract and pull them up higher or into the abdomen. ??? A normal testicle is egg-shaped and feels firm. It is smooth and not tender. ??? It is normal to feel a firm, spaghetti-like cord at the back of your testicle. This is the spermatic cord. ??? Do a self-exam once a month. How to do a testicular self-exam 1. Stand and hold your penis away from your body. 2. Look at each testicle to check for changes in appearance, such as swelling or changes in size orshape. 3. Roll each testicle between your thumb and forefinger, feeling the entire testicle. Feel for: ??? Lumps. ??? Swelling. ??? Discomfort. 4. Check for swelling or tender bumps in the groin area. Your groin is where your lower belly (abdomen) meets your upper thighs. Contact a health care provider if: ??? You find a bump or lump. This may be a small, hard bump that is the size of a pea. ??? You have swelling, pain, or soreness in your testicle area. ??? You see or feel any other changes in your testicles. This information is not intended to replace advice given to you by your health care provider. Make sure you discuss any questions you have with your health care provider. Document Revised: 12/25/2022 Document Reviewed: 12/25/2022 [employer] Patient Education ? 2023 [employer].[facility] 07-29-2024 History of Present illness Narrative* Logan Arana MD - 07/29/2024 8:45 AM EDT Patient ID: Yue Delgadillo is a 74 y.o. male. Chief Complaint: Chief Complaint Patient presents with eustachian tube dysfunction History: Yue Delgadillo is a pleasant 73 y.o. male who presents today for a 6 month ear check. Patientreports he is unsure if the PE tube is still intact in his right ear. Denies otalgia. Past History: The following portions of the patient's history were reviewed and updated as appropriate: MEDICATIONS Current Outpatient Medications: albuterol (PROVENTIL HFA;VENTOLIN HFA) 90 mcg/actuation inhaler, Inhale 2 puffs every 6 (six) hoursas needed for wheezing., Disp: 18 g, Rfl: 0 allopurinoL (ZYLOPRIM) 300 mg tablet, Take 1 tablet (300 mg total) by mouth in the morning., Disp: 90 tablet, Rfl: 3 amLODIPine (NORVASC) 10 mg tablet, Take 1 tablet (10 mg total) by mouth in the morning., Disp: 90 tablet, Rfl: 3 aspirin 81 mg, Take 1 tablet (81 mg total) by mouth in the morning., Disp: , Rfl: fluticasone propionate (FLOVENT HFA) 110 mcg/actuation inhaler, Inhale 2 puffs once daily. Patient only takes when sick, Disp: 12 g, Rfl: 3 rcbejnrq-lmtt-JC-calcium &mins (THERAGRAN-M) 9 mg iron-400 mcg tablet, Take 1 tablet by mouth in the morning., Disp: , Rfl: omega-3 fatty acids-fish oil 300-1,000 mg capsule, Take 1,200 mg by mouth in the morning., Disp: , Rfl: omeprazole (PriLOSEC) 20 mg capsule, Take 2 capsules (40 mg total) by mouth in the morning., Disp: 180 capsule, Rfl: 3 simvastatin (ZOCOR) 20 mg tablet, Take 1 tablet (20 mg total) by mouth in the morning., Disp: 90 tablet, Rfl: 3 ALLERGIES Ciprofloxacin, Codeine, Erythromycin, Lanolin, Lisinopril, Meloxicam, Pork derived (porcine), and Sulfa (sulfonamide antibiotics) PAST MEDICAL HISTORY Past Medical History: Diagnosis Date Arthritis Asthma GERD (gastroesophageal reflux disease) Gout HL (hearing loss) Hyperlipidemia Hypertension Mastoiditis of right side 12/26/2023 Pneumonia Prostate cancer ([facility]) Visual impairment PAST SURGICAL HISTORY Past Surgical [...] Family History Problem Relation Age of Onset [place] disease Mother Asthma Mother Heart disease Father REVIEW OF SYSTEMS Review of Systems Constitutional: Negative for fever and chills. Eyes: Negative for discharge and visual disturbance. Respiratory: Negative for cough and shortness of breath. Cardiovascular: Negative for chest pain and chest discomfort. Gastrointestinal: Negative for nausea and vomiting. Endocrine: Negative for cold intolerance and heat intolerance. Genitourinary: Negative for difficulty urinating. Musculoskeletal: Negative for neck pain and neck stiffness. Skin: Negative for rash. Allergic/Immunologic: Negative for food allergies. Neurological: Negative for seizures. Hematological: Does not bruise/bleed easily. Psychiatric/Behavioral: Negative for confusion. Data Review: Physicial Exam: Resp 18 Ht 175.3 cm (5' 9 ) Wt 95.3 kg (210 lb) BMI 31.01 kg/m Constitution: Patient appears healthy, alert, oriented, with their usual voice, communication, and affect Head and Face: Normocephalic and Atraumatic. Facial nerve function normal Eyes: No Strabismus and EOM normal Ear: external ear normal, canal normal, and TM normal without fluid or infection Right PE tube retained Nose and Nasal Cavity: The external appearance, nasal mucosa, septum, and turbinates are unremarkable without drainage or lesion Oral Cavity: The lips, gums and teeth are unremarkable without mass or lesion. Neck: No asymmetry or mass, thyroid normal, no lymphadenopathy. Salivary glands normal. Cranial Nerves: Cranial nerves intact with exception of cranial nerve VIII Procedure: Microscopic Examination Pre Op Diagnosis: Chronic Otitis Post Op Diagnosis: Same Procedure: Otologic Microscopic Examination Surgeon: Logan Arana MD Consent: Verbal Consent was obtained prior to the procedure. Anesthesia: None Complications: none Procedure: In a reclined position, using an otologic microscope, the examination was performed. Findings: See the findings recorded under the physical examination. Assessment Impression: Right Patent PE Tube Plan: - Microscopic examination was completed in office today. It indicated the right PE tube was patent. - Follow-up in 1 year. Visit Diagnosis and Orders: Yue was seen today for eustachian tube dysfunction. Diagnoses and all orders for this visit: Tinnitus, bilateral Mixed conductive and 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 Sensorineural hearing loss (SNHL) of left ear with restricted hearing of right ear Scribe Statement: Scribed for LOGAN ARANA MD by kala Frances. Sharita Motley MA 07/29/24 0904 Provider Statement: I LOGAN ARANA MD personally performed the services described in the documentation, as scribed in my presence and it is both accurate and complete. documented in this encounterK[facility] Instructions* Patient Instructions* Home Haque - 07/29/2024 8:45 AM EDT - Microscopic examination was completed in office today. It indicated the right PE tube was retained. - Follow-up in 1 year. documented in this encounterK[facility]04-29-[facility] History of Present illness Narrative* Alena Marks APRN-ACUTE CARE NURSE PRACTITIONER - 07/22/2024 10:35 AM EDT Skin Check Location: Patient requests a skin examination from the waist up Dermatologic history: history of Actinic Keratosis, history of Basal Cell Carcinoma, history of atypical mole(s) Last visit: 1 year ago Established patient All pertinent medical history, medications, and allergies were reviewed. General Exam: alert, oriented to person, place, and time, normal affect, well appearing Unaccompanied A complete skin exam was offered, pt declined. Areas not examined despite medical recommendation: From the waist down Scalp, Examined , exam limited by hair Head, Face Examined , Exam limited by [place]uilera and mustache Neck Examined Chest Examined Back Examined Abdomen Examined Right arm Examined Left arm Examined Hands Examined Digits,nails: Examined Lymphatics: Not examined Skin Exam 1. SEBORRHEIC KERATOSIS (3) Arms, Head - Anterior (Face), Trunk Stuck on verrucous, blair-brown papules and plaques. Patient was counseled regarding these benign growths. Removal is normally not necessary, but they may be removed if they are symptomatic or for cosmetic reasons. 2. SEBORRHEIC KERATOSIS, INFLAMED (7) Neck - Anterior (7) [place] and brown stuck on verrucous scaly papule with surrounding erythema The patient was informed that symptomatic seborrheic keratoses are benign growths that become inflamed, itchy, tender, traumatized, caught on clothing, or bleed. Symptomatic lesions can be treated with cryotherapy or curretage. Thicker lesions treated with cryotherapy may require more than one treatment. The patient was instructed to notify the office if abnormal redness or tenderness develops atthe treatment site. Cryotherapy today, see procedure note. Diagnosis: Inflamed seborrheic keratosis Indication: Inflamed Consent: Verbal consent was obtained and risks were discussed, including, but not limited to risks of scarring, darker or cost accounting analyst pigmentary changes, recurrence, incomplete removal and infection. Method: Liquid nitrogen was used to treat the lesion(s) with two 5-10 second freeze-thaw cycles Number of lesions treated: 7 Post-procedure instructions: Instructions were given orally and in writing. The office will be contacted if the lesion fails to resolve despite treatment, or if a side effect develops such as abnormal crusting, scabbing, redness or tenderness Cryotherapy, skin lesion - Neck - Anterior (7) 3. MELANOCYTIC NEVUS OF TRUNK Generalized Scattered benign appearing, regular brown to light brown melanocytic papules and macules with similar morphology Counseled regarding these benign growths. Rarely, a nevus can develop into malignant melanoma, so any changing nevi should be promptly re-evaluated. 4. KNUTSON ANGIOMA Trunk Scattered knutson-red papule(s). The patient was informed that angiomas are benign growths on the the skin. No treatment is necessary. 5. HISTORY OF NEVUS EXCISION Left Forearm No evidence of recurrence in scar from atypical mole excision. Notify office for any recurrence at surgery site or for any new or changing lesions. 6. HISTORY OF BASAL CELL CARCINOMA Right Cheek No evidence of recurrence at BCC scar. The patient was counseled that scars from excisional sites of nonmelanoma skin cancers should be monitored closely for recurrence. The patient was instructed to contact the office for any new, changing, or symptomatic moles. The patient was also instructed to contact the office for any new lesions that develop within or around the previous surgery scar. Next Visit: 1 year, skin check documented in this encounterPershing Memorial [id number] NotePatient Education Urology Scrotal Swelling Scrotal swelling is a condition in which the sac of skin that contains the testicles, blood vessels, and structures that help deliver sperm and semen (scrotum) is enlarged or swollen. This can happenon one or both sides of the scrotum. Many things can cause the scrotum to enlarge or swell, including: ??? Fluid around the testicle (hydrocele). ??? A weakened area in the muscles around the groin (hernia). ??? An enlarged vein around the testicle. ??? An injury. ??? An infection. ??? Certain medical treatments. ??? Certain medical conditions, such as congestive heart failure. ??? A recent genital surgery or procedure. ??? A twisting of the spermatic cord that cuts off blood supply (testicular torsion). ??? Testicular cancer. Scrotal swelling can happen along with scrotal pain. Follow these instructions at home: Activity ??? Rest as told by your health care provider. The best position is to lie down. ??? Do not lift anything that is heavier than 5 lb (2.3 kg), or the limit that you are told, until your health care provider says that it is safe. ??? Avoid sexual activity until your health care provider says that it is safe. General instructions ??? Take bdpq-xwi-clyfyoo and prescription medicines only as told by your health care provider. ??? Perform a monthly self-exam of the scrotum and penis. Feel for changes. Ask your health care provider how to perform a monthly self-exam if you are unsure. ??? Keep all follow-up visits. This is important. Managing pain, stiffness, and swelling ??? If directed, put ice on the affected area. To do this: ? Put ice in a plastic bag. ? Place a towel between your skin and the bag. ? Leave the ice on for 20 minutes, 2?3 times a day. ? Remove the ice if your skin turns bright red. This is very important. If you cannot feel pain, heat, or cold, you have a greater risk of damage to the area. ??? Place a rolled towel under your testicles for support or use underwear with a supportive pouch. ??? Wear an athletic support cup or scrotal support, such as a jock strap, for comfort. Contact a health care provider if: ??? You have sudden pain that is persistent and does not improve. ??? You have a heavy feeling or notice fluid in the scrotum. ??? You have pain or burning while urinating. ??? You have blood in your urine or semen. ??? You feel a lump around the testicle. ??? You notice that one testicle is larger than the other. Keep in mind that a small difference in size is normal. ??? You have a persistent dull ache or pain in your groin or scrotum. Get help right away if: ??? The pain does not go away. ??? The pain becomes severe. ??? You have a fever or chills. ??? You have pain or vomiting that cannot be controlled. ??? One or both sides of the scrotum are very red and swollen. ??? There is redness spreading upward from your scrotum to your abdomen or downward from your scrotum to your thighs. Summary ??? Scrotal swelling is a condition in which the sac of skin that contains the testicles, blood vessels, and structures that help deliver the sperm and semen (scrotum) is enlarged or swollen. ??? Many things can cause the scrotum to swell, including fluid around the testicle (hydrocele), a weakened area in the muscles around the groin (hernia), and an enlarged vein around the testicle. ??? Icing the scrotum or using underwear with a supportive pouch may help reduce swelling and pain. ??? Contact a health care provider if you develop scrotal pain that is sudden and persistent, you have pain while urinating, you feel a lump around the testicle, or you notice blood in your urine or semen. ??? Get help right away if you have uncontrolled pain or vomiting, a very red and swollen scrotum, or a fever or chills. This information is not intended to replace advice given to you by your health care provider. Make sure you discuss any questions you have with your health care provider. Document Revised: 11/09/2020 Document Reviewed: 11/09/2020 [employer] Patient Education ? 2023 [employer].[facility] 05-26-2024 Hospital Discharge instructions Patient Education 05/26/2024 13:06:00 Hydrocelectomy, Adult, Care After Hydrocelectomy, Adult, Care After The following information offers guidance on how to care for yourself after your procedure. Your health care provider may also give you more specific instructions. If you have problems or questions, contact your health care provider. What can I expect after the procedure? After your procedure, it is common to have: Mild discomfort and swelling in the pouch that holds your testicles (scrotum). Bruising of the scrotum. Follow these instructions at home: Medicines Take nzxb-wgg-adqrfjc and prescription medicines only as told by your health care provider. Ask your health care provider if the medicine prescribed to you: ?Requires you to avoid driving or using machinery. ?Can cause constipation. You may need to take these actions to prevent or treat constipation: ?Drink enough fluid to keep your urine pale yellow. ?Take awza-mpb-apqxbmv or prescription medicines. ?Eat foods that are high in fiber, such as beans, whole grains, and fresh fruits and vegetables. ?Limit foods that are high in fat and processed sugars, such as fried or sweet foods. Bathing Do not take baths, swim, or use a hot tub until your health care provider approves. Ask your healthcare provider if you may take showers. You may only be allowed to take sponge baths. If you were told to wear an athletic support strap (scrotal support), keep it dry. Take it off whenyou shower or bathe. Incision care Follow instructions from your health care provider about how to take care of your incision. Make sure you: ?Wash your hands with soap and water for at least 20 seconds before and after you change your bandage (dressing). If soap and water are not available, use hand first assistant. ?Change your dressing as told by your health care provider. ?Leave stitches (sutures), skin glue, or adhesive strips in place. These skin closures may need to stay in place for 2 weeks or longer. If adhesive strip edges start to loosen and curl up, you may trim the loose edges. Do not remove adhesive strips completely unless your health care provider tells you to do that. Check your incision and scrotum every day for signs of infection. Check for: ?More redness, swelling, or pain. ?Fluid or blood. ?Warmth. ?Pus or a bad smell. Managing pain and swelling If directed, put ice on the affected area. To do this: Put ice in a plastic bag. Place a towel between your skin and the bag. Leave the ice on for 20 minutes, 2 3 times per day. Remove the ice if your skin turns bright red. This is very important. If you cannot feel pain, heat, or cold, you have a greater risk of damage to the area. Activity Do not lift anything that is heavier than 10 lb (4.5 kg) until your health care provider says that it is safe. If you were given a sedative during the procedure, it can affect you for several hours. Do not drive or operate machinery until your health care provider says that it is safe. Ask your health care provider when it is safe to drive. Return to your normal activities as told by your health care provider. Ask your health care provider what activities are safe for you. General instructions Do not use any products that contain nicotine or tobacco. These products include cigarettes, chewing tobacco, and vaping devices, such as e-cigarettes. These can delay healing after surgery. If you need help quitting, ask your health care provider. If you were given a scrotal support, wear it as told by your health care provider. Keep all follow-up visits. This is important. If you had a drain put in during the procedure, you will need to have it removed at a follow-up visit. Contact a health care provider if: Your pain is not controlled with medicine. You have more redness, swelling, or pain around your scrotum. You have fluid or blood coming from your incision. Your incision feels warm to the touch. You have pus or a bad smell coming from your incision. You have a fever. Get help right away if: You develop shaking, chills, and a fever that is higher than 101.8 F (38.8 C). You have redness or swelling that starts at your scrotum and spreads outward to your whole groin. You develop swelling in your legs. You have difficulty breathing. These symptoms may be an emergency. Get help right away. Call 911. Do not wait to see if the symptoms will go away. Do not drive yourself to the hospital. Summary After a hydrocelectomy, it is common to have mild discomfort, swelling, and bruising. Do not take baths, swim, or use a hot tub until your health care provider approves. Ask your healthcare provider if you may take showers. If directed, put ice on the affected area to help with pain and swelling. Do not lift anything that is heavier than 10 lb (4.5 kg) until your health care provider says that it is safe. Return to your normal activities as told by your health care provider. If you were given a scrotal support, keep it dry. Wear the scrotal support as told by your health care provider. This information is not intended to replace advice given to you by your health care provider. Make sure you discuss any questions you have with your health care provider. Document Revised: 10/27/2021 Document Reviewed: 10/27/2021 [employer] Patient Education 2023 [employer]. Follow Up Care 05/23/2024 12:39:18 With:VARSHA MCPHERSON, Maia Marie, URL Address: [facility] [address] , [place] [id number]- [phone] When: Unknown Comments:1 month to reassess s/p hydrocelectomy [facility] [place] 03-03-2025 NotePatient Education Urology Hydrocelectomy, Adult, Care After The [...] these instructions at home: Medicines ??? Take ivps-dhr-rspjmly and prescription medicines only as told by your health care provider. ??? Ask your health care provider if the medicine prescribed to you: ? Requires you to avoid driving or using machinery. ? Can cause constipation. You may need to take these actions to prevent or treat constipation: ? Drink enough fluid to keep your urine pale yellow. ? Take xdrb-hfw-ivyodpr or prescription medicines. ? Eat foods that [...] and water are not available, use hand first assistant. ? Change your dressing as told by your health care provider. ? Leave stitches (sutures), skin glue, or adhesive strips in place. These skin closures may need tostay in place for 2 weeks or longer. If adhesive strip edges start to loosen and curl up, you may trim the loose edges. Do not remove adhesive strips completely unless your health care provider tellsyou to do that. ??? Check your incision [...] swelling. ??? Do not (more content not included)...[facility]03-[facility]25 NotePatient Education Urology Hydrocelectomy, Adult, Care After The [...] these instructions at home: Medicines ??? Take qinf-jzc-bdjnddw and prescription medicines only as told by your health care provider. ??? Ask your health care provider if the medicine prescribed to you: ? Requires you to avoid driving or using machinery. ? Can cause constipation. You may need to take these actions to prevent or treat constipation: ? Drink enough fluid to keep your urine pale yellow. ? Take olrt-icb-fdkztqk or prescription medicines. ? Eat foods that [...] and water are not available, use hand first assistant. ? Change your dressing as told by your health care provider. ? Leave stitches (sutures), skin glue, or adhesive strips in place. These skin closures may need tostay in place for 2 weeks or longer. If adhesive strip edges start to loosen and curl up, you may trim the loose edges. Do not remove adhesive strips completely unless your health care provider tellsyou to do that. ??? Check your incision [...] swelling. ??? Do not (more content not included)...[facility]02-18-2025 Miscellaneous Notes* Telephone Encounter - CHRIS Mckeon - 05/13/2024 6:28 AM EST Refill request documented in this encounterK[facility]25 Telephone encounter Note* Telephone Encounter - CHRIS Mckeon - 05/13/2024 6:28 AM EST Refill request [facility] Miscellaneous Notes* Telephone Encounter - CHRIS Mckeon - 05/09/2024 6:29 AM EST Refill request. documented in this encounterK[facility]02-14-2025 Telephone encounter Note* Telephone Encounter - CHRIS Mckeon - 05/09/2024 6:29 AM EST Refill request. [facility] Miscellaneous Notes* Telephone Encounter - CHRIS Mckeon - 05/07/2024 9:29 AM EST Patient's , Cherise, called stating patient has a horrible sore throat and congestion. She is wanting to know if something can be sent into the pharmacy for him. He is scheduled for his surgery on05/15/24 Please advise. documented in this encounterK[facility]02-12-2025 Telephone encounter Note* Telephone Encounter - CHRIS Mckeon - 05/07/2024 9:29 AM EST Patient's , Cherise, called stating patient has a horrible sore throat and congestion. She is wanting to know if something can be sent into the pharmacy for him. He is scheduled for his surgery on05/15/24 Please advise. [facility] History of Present illness Narrative* Brianna Brunner MD - 05/01/2024 8:30 AM EST Subjective SUBJECTIVE: Patient ID: Yue Delgadillo is [...] past medical history, past social history, past surgicalhistory and problem list. 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 Take ptwl-xpx-wpisldi and prescription medicines only as told by your health care provider. ??? Ask your health care provider if the medicine prescribed to you: ? Requires you to avoid driving or using machinery. ? Can cause constipation. You may need to take these actions to prevent or treat constipation: ? Drink enough fluid to keep your urine pale yellow. ? Take enkx-axe-sxvnkzs or prescription medicines. ? Eat foods that [...] and water are not available, use hand first assistant. ? Change your dressing as told by your health care provider. ? Leave stitches (sutures), skin glue, or adhesive strips in place. These skin closures may need tostay in place for 2 weeks or longer. If adhesive strip edges start to loosen and curl up, you may trim the loose edges. Do not remove adhesive strips completely unless your health care provider tellsyou to do that. ??? Check your incision [...] swelling. ??? Do not (more content not included)...[facility]01-09-2025 Miscellaneous Notes* Telephone Encounter - Chanelle Santamaria CMA - 04/03/2024 6:29 AM EST Refill request documented in this encounterK[facility]-09-2025 Telephone encounter Note* Telephone Encounter - Chanelle Santamaria CMA - 04/03/2024 6:29 AM EST Refill request [facility] Hospital Discharge instructions Patient Education 03/31/2024 09:41:02 [...] including vitamins, herbs, eye drops, creams, and qnpb-pxs-zzxovtb medicines. Any problems you or family members [...] testicle or the tube that carries sperm outof the testicle (vas deferens). Infection. Allergic reactions [...] provider tells you to take them. Taking wohy-wks-nrdecap medicines, vitamins, herbs, and supplements. Surgery safety [...] for at least 4 weeks before the procedure.These products include cigarettes, chewing tobacco, and vaping [...] blood oxygen level will be monitored until youleave the hospital or clinic. You will be [...] provider. Document Revised: 10/27/2021 Document Reviewed: 10/27/2021 [employer] Patient Education 2023 [employer]. 03/31/2024 09:41:01 Hydrocele, Adult Hydrocele, Adult A hydrocele is a collection of fluid in the loose pouch of skin that holds the testicles (scrotum).It can occur in one or both testicles. [...] Follow these instructions at home: Medicines Take rowo-fcj-fckjtzn and prescription medicines only as told by your health care provider. If you were prescribed an antibiotic medicine, take it as told by your health care provider. Do notstop taking the antibiotic even if you start [...] provider. Document Revised: 10/27/2021 Document Reviewed: 10/27/2021 [employer] Patient Education 2023 [employer]. 03/31/2024 09:23:27 Kegel Exercises Kegel Exercises Kegel [...] muscles. These are the same muscles you squeezewhen you try to stop the flow of [...] tight lift in your rectal area. If youare a female, you should also feel a [...] provider. Document Revised: 07/21/2021 Document Reviewed: 07/21/2021 Elsevier Patient Education 2023 [employer]. Follow Up Care 03/23/2023 09:25:56 With:VARSHA MCPHERSON, Maia Marie, URL Address: [facility] [address] [place] [address]- When: Unknown [facility] Analisa 01-06-2025 NotePatient Education Obstetrics and Gynecology Kegel Exercises Kegel [...] muscles. These are the same muscles you squeezewhen you try to stop the flow of [...] provider. Document Revised: 07/21/2021 Document Reviewed: 07/21/2021 [employer] Patient Education ? 2023 [employer]. Urology Hydrocelectomy, Adult A hydrocelectomy is a [...] including vitamins, herbs, eye drops, creams, and umli-jrj-ytespcz medicines. ??? Any problems you or family [...] the testicle or the tube that carries spermout of the testicle (vas deferens). ??? Infection. [...] tells you to take them. ??? Taking futj-pjw-szmtlll medicines, vitamins, herbs, and supplements. Surgery safety Ask your health care provider: ??? How your surgery site will be (more content not included)...[facility]11-27-2024 Miscellaneous Notes* Telephone Encounter - Saira Vieyra RN - 02/20/2024 8:32 AM EST Spoke with and got patient scheduled for his Right Ear Tube check Sunday July 30, 2023 at 0845 w/Dr. Arana. documented in this encounterKettering [facility]11-27-2024 Telephone encounter Note* Telephone Encounter - Saira Vieyra RN - 02/20/2024 8:32 AM EST Spoke with and got patient scheduled for his Right Ear Tube check Sunday July 30, 2023 at 0845 w/Dr. Arana. [facility] [employer] [id number] History of Present illness Narrative* CHARLENE Cummins - 02/19/2024 3:30 PM EST AUDIOLOGIC EVALUATION Reason for visit: CC: Patient [...] the right ear and normal hearing through 2000Hz dropping to a moderate to severe SNHL [...] on the right. Reliability: good Speech Audiometry: SRT/MOLASSES AND CARAMEL OPERATOR in good agreement WRS: Right Ear: Excellent (100%) Left Ear: Excellent (100%) RECOMMENDATIONS: Follow up with Dr. Phylicia Gunderson Retest as medically necessary Eliseo Ford CCC-A Catalog Library Assistant documented in this encounterKettering Health [facility]ble11-12-2024 History of Present illness Narrative* Phylicia Gunderosn DO - 02/05/2024 9:15 AM EST Images from the original note were not included. [facility] [address] [facility] [id number] SUBJECTIVE: Patient ID ([id number]): Yue Delgadillo is [...] in a tunnel. He has been wearing earplugs when he showers. He follows with Dr. [...] of a hollow or tinny type sound inthe right ear. He was significantly ill with the otitis externa and has lost 6-7 lb since hospitalization. HISTORY: Past Medical History: Diagnosis Date Arthritis Asthma GERD (gastroesophageal reflux disease) Gout HL (hearing loss) Hyperlipidemia Hypertension Mastoiditis of right side 12/26/2023 Pneumonia Prostate cancer ([facility]) Visual impairment Past Surgical History: Procedure Laterality Date APPENDECTOMY CARDIAC CATHETERIZATION COLONOSCOPY COLONOSCOPY DIAGNOSTIC / SCREENING N/A 02/21/2023 Performed by Buddy Ureña MD at [facility] 01/02/2020 PROSTATE BIOPSY PROSTATECTOMY REPLACEMENT TOTAL KNEE Right TOOTH EXTRACTION VASECTOMY 1988 Family History Problem Relation Age of Onset [place]'s disease Mother Asthma Mother Heart disease Father [...] min Stress: No Stress Concern Present (05/03/2020) [employer] Occupational Health - Occupational Stress Questionnaire Feeling of Stress : Not at all Social Connections: Socially Integrated (05/03/2020) Social Connection and Isolation Panel [NHANES] Frequency of Communication with Friends and Family: More than three times a week Frequency of Social Gatherings with Friends and Family: Twice a week Attends Hindu Services: 1 to 4 times per year [...] tabs) tablets,dose pack tablet Take 2 tablets bymouth twice daily for 7 days, then take 1 tablet twice daily 74 tablet 0 aspirin 81 mg Take 1 tablet (81 mg total) by mouth in the morning. fluticasone propionate (FLOVENT HFA) 110 mcg/actuation inhaler Inhale 2 puffs once daily. Patient only takes when sick 12 g 3 urqqwjpn-hzcw-DD-calcium &mins (THERAGRAN-M) 9 mg iron-400 mcg tablet Take 1 tablet by mouth inthe morning. omega-3 fatty acids-fish oil 300-1,000 mg [...] CT neck soft tissue with contrast Order: [id number] Status: Final result Visible to patient: Yes (seen) Next appt: 05/01/2024 at 08:30 AM in Internal Medicine (Brianna Brunner MD) 0 Result Notes Details Reading Physician Reading Date Result Priority Cyrus Singh MD [phone] 12/26/2023 STAT Narrative & Impression EXAM: CT [...] explained that the ringing and tunnel hearing sensationcould be from patulous Eustachian tube which we [...] drainage from the sinuses today. As he isasymptomatic at this time, there is no further intervention necessary today. If he becomes symptomatic, then he should call the office and schedule an appointment. I will see him back as needed. Scribe Statement: Scribed for and in the presence of Pyhlicia Gunderson DO by Gris Maradiaga (kala). Gris Maradiaga 02/05/2024 7:39 AM Provider Statement: [...] this chart were generated using voice recognition [employer] dictation software. Although every effort was made to ensure the accuracy of this automated dredge deckhand, some errors in dredge deckhand may have occurred. Kayli Oconnell CNA 02/05/24 0928 documented in this encounterKindred Hospital LimaLYCEEM [id number] Instructions* Patient Instructions* Phylicia Gunderson DO - 02/05/2024 9:15 AM EST Plan: On exam today, I did not appreciate any physical abnormalities within the ears. The right PE tube was in, open and dry with some old blood present. We discussed that he could benefit from an updated hearing test and a hearing aid evaluation. I explained that the ringing and tunnel hearing sensationcould be from patulous Eustachian tube which we [...] drainage from the sinuses today. As he isasymptomatic at this time, there is no further intervention necessary today. If he becomes symptomatic, then he should call the office and schedule an appointment. I will see him back as needed. documented in this encounterKindred Hospital LimaMirna Therapeutics Beaumont [id number] NoteI called an spoke to Mrs Delgadillo and advised her to take the pt to the ER for further evaluation.[facility]10-15-2024 [facility] Patient name: [...] History: Immunization History Administered Date(s) Administered Covid (SendRR) Bivalent Booster =>12 YRS 02/07/2022 Influenza, High Dose Seasonal, Preservative Free 01/29/2017, 01/08/2018, 01/13/2019, 01/14/2020 Influenza, High-dose Seasonal, Quadrivalent, Preservative Free 01/14/2021, 02/07/2022, 01/03/2023 Influenza, Unspecified 01/08/2014, 01/25/2015, 03/09/2016 Influenza, seasonal, injectable 01/07/2020 Influenza, seasonal, injectable, preservative free, 6 moonths & older 12/31/2023 Moderna 12 YR UP Vaccine BiValent Booster 05/31/2020 Moderna Covid-19 vaccine, 12&up, Fall 2022-02/02/2023 SendRR SARS-CoV-2 Vaccination 05/27/2020, 06/18/2020, 01/14/2021, 10/25/2021 Pneumococcal [...] tingling. Objective Physical Examinati (more content not included)...[facility]10-10-2024 Miscellaneous Notes* Telephone Encounter - CHRIS Mckeon - 01/03/2024 1:27 PM EDT Patient's daughter, Kat, called stating that her [...] his throat at this time. Also she wantsto know when she should test him again; based on symptoms or in 72 hours? Please advise. * Telephone Encounter - Brianna Brunner MD - 01/03/2024 1:27 PM EDT Paxlovid script sent. He should hold simvastatin while on Paxlovid. I would only test him if symptoms develop and would not use Paxlovid for a positive test without symptoms. * Telephone Encounter - CHRIS Mckeon - 01/03/2024 1:27 PM EDT Kat notified and verbalized understanding. documented in this encounterK[facility]10-10-2024 Telephone encounter Note* Telephone Encounter - CHRIS Mckeon - 01/03/2024 1:27 PM EDT Patient's daughter, Kat, called stating that her [...] his throat at this time. Also she wantsto know when she should test him again; based on symptoms or in 72 hours? Please advise. [facility]10-10-2024 Telephone encounter Note* Telephone Encounter - Brianna Brunner MD - 01/03/2024 1:27 PM EDT Paxlovid script sent. He should hold simvastatin while on Paxlovid. I would only test him if symptoms develop and would not use Paxlovid for a positive test without symptoms. [facility]10-10-2024 Telephone encounter Note* Telephone Encounter - CHRIS Mckeon - 01/03/2024 1:27 PM EDT Kat notified and verbalized understanding. [facility]10-09-2024 History of Present illness Narrative* Logan Arana MD - 01/02/2024 2:30 PM EDT Patient ID: Yue Delgadillo is a 73 [...] and it is improving from when he washospitalized. Patient denies nausea or vomiting with the [...] time. Patient admits to an earache on and only has improved since he was prescribed antibiotics. Past History: The following portions of the patient's history were reviewed and updated as appropriate: MEDICATIONS Current Outpatient Medications: albuterol (PROVENTIL HFA;VENTOLIN HFA) 90 mcg/actuation inhaler, Inhale 2 puffs every 6 (six) hoursas needed for wheezing., Disp: , Rfl: allopurinoL (ZYLOPRIM) 300 mg tablet, TAKE ONE TABLET BY MOUTH EVERY MORNING, Disp: 90 tablet, Rfl:3 amLODIPine (NORVASC) 10 mg tablet, take 1 [...] MINI-BAG Plus, Infuse 2,000 mg into a venouscatheter every 8 (eight) hours for 9 days., [...] when sick, Disp: 12 g, Rfl: 3 vuqambhd-jhgm-EH-calcium &mins (THERAGRAN-M) 9 mg iron-400 mcg tablet, [...] 1 tablet (50 mg total) by mouth every8 (eight) hours as needed for pain. Pt only taking at bedtime), Disp: 15 tablet, Rfl: 0 ALLERGIES Ciprofloxacin, Codeine, Erythromycin, Lanolin, Lisinopril, Meloxicam, Pork derived (porcine), and Sulfa (sulfonamide antibiotics) PAST MEDICAL HISTORY Past Medical History: Diagnosis Date Arthritis Asthma GERD (gastroesophageal reflux disease) Gout HL (hearing loss) Hyperlipidemia Hypertension Mastoiditis of right side 12/26/2023 Pneumonia Prostate cancer ([facility]) Visual impairment PAST SURGICAL HISTORY Past Surgical History: Procedure Laterality Date APPENDECTOMY CARDIAC CATHETERIZATION COLONOSCOPY COLONOSCOPY DIAGNOSTIC / SCREENING N/A 02/21/2023 Performed by Buddy Ureña MD at [facility] 01/02/2020 PROSTATE BIOPSY PROSTATECTOMY [...] Family History Problem Relation Age of Onset [place]'s disease Mother Asthma Mother Heart disease Father [...] Motley MA 01/02/24 1419 documented in this encounterKindred Hospital LimaLucid Holdings10-09-2024 Instructions* Patient Instructions* Home Haque - 01/02/2024 2:30 PM EDT - Microscopic examination was completed in office today. The ears appear generally healthy. - Continue ciprodex eardrops. - Follow-up as needed. documented in this encounterKettering [facility]10-08-2024 Miscellaneous Notes* Telephone Encounter - Marivel Fraser RN - 01/01/2024 11:18 AM EDT Transition of Care (*required) *Additional Questions/Concerns Requiring [...] Specialty: Infectious Disease *Name of Discharging Facility: [facility] Date of Facility Discharge: Admission 12/26/23 Discharge 12/31/23 Date of Interactive Contact and Name of Rv Repair Technician: 01/01/24 12:20 pm Unable to reach patient. [...] by the Patient: NA documented in this encounterKettering Health [facility]ble10-08-2024 Telephone encounter Note* Telephone Encounter - Marivel Fraser RN - 01/01/2024 11:18 AM EDT Transition of Care (*required) *Additional Questions/Concerns Requiring [...] Specialty: Infectious Disease *Name of Discharging Facility: [facility] Date of Facility Discharge: Admission 12/26/23 Discharge 12/31/23 Date of Interactive Contact and Name of Rv Repair Technician: 01/01/24 12:20 pm Unable to reach patient. [...] Other Services Utilized/Needed by the Patient: NA [facility] [id number] Miscellaneous Notes* Telephone Encounter - Elo Srivastava - 01/01/2024 8:21 AM EDT Elo Johnson MD; Odalis Caruso; P [facility] Ent Scheduling Team; P [facility] Group Care Worker Patient is scheduled with Dr. Arana 01/01 at 2:30. Previous Messages ----- Message ----- From: Oscar Johnson MD Sent: 01/01/2024 7:38 AM EDT To: Odalis Caruso; [facility] Ent Scheduling Team Subject: Right mastoiditis This patient gets scheduled to see Dr. Arana on Sunday. He was hospitalized. He is now discharge. He will need to see him on Sunday. documented in this encounterKettering [facility]ble10-08-2024 Telephone encounter Note* Telephone Encounter - Elo Srivastava - 01/01/2024 8:21 AM EDT Elo Johnson MD; Odalis Caruso; P [facility] Ent Scheduling Team; P [facility] Ent Group Care Worker Patient is scheduled with Dr. Arana 01/01 at 2:30. Previous Messages ----- Message ----- From: Oscar Johnson MD Sent: 01/01/2024 7:38 AM EDT To: Odalis Caruso; [facility] Ent Scheduling Team Subject: Right mastoiditis This patient gets scheduled to see Dr. Arana on Sunday. He was hospitalized. He is now discharge. He will need to see him on Sunday. [facility]10-07-[facility]24 Progress note* Discharge Planning Note - Estefany Franz RN - 12/31/2023 2:54 PM EDT DISCHARGE PLANNING NOTE CRF sent to [facility] and [facility] via [employer]. - Estefany Franz RN 12/31/23 2:54 PM [facility]10-07-2024 Miscellaneous Notes* Discharge Planning Note - Estefany Franz RN - 12/31/2023 2:54 PM EDT DISCHARGE PLANNING NOTE CRF sent to [facility] and [facility] via [employer]. - Estefany Franz RN 12/31/23 2:54 PM * Discharge Planning Note - Pricilla Downey RN - 12/31/2023 11:45 AM EDT DISCHARGE PLANNING NOTE Met with patient and his . Discussed the cost of antibiotics will be 249.75/per week, they are accepting of cost. They have chosen [facility]. Awaiting scripts and midline placement [...] notified of this and are in agreement. * Plan of Care - Selam Pantoja RN - 12/30/2023 11:38 PM EDT Problem: Safety Goal: Patient will be injury free during hospitalization Description: INTERVENTIONS: 1. Assess patient's risk for falls and implement fall prevention plan of care per policy 2. Provide and maintain a safe environment 3. Proper use of double Identifiers 4. Medication administration using the 5 rights 5. Hand hygiene 6. Specimens are labeled at the bedside 7. Instruct patient/ patient hotel services sales representative about use of safety devices 8. Include patient/ patient hotel services sales representative in decisions related to safety Outcome: Progressing Note: Evaluation of progress towards goal:Safety maintained, call light and personal items within reach * Plan of Care - Kayleigh Alfredo RN - 12/30/2023 3:53 PM EDT Problem: Pain Goal: Patient goal is pain score less than 4, able to rest, and participant in treatment plan as appropriate Description: INTERVENTIONS: 1. Encourage patient or legal hotel services sales representative to report early pain and ask [...] per policy 9. Teach patient or legal hotel services sales representative interventions for comforting Outcome: Progressing Note: [...] at the bedside 7. Instruct patient/ patient hotel services sales representative about use of safety devices 8. Include patient/ patient hotel services sales representative in decisions related to safety Outcome: [...] hygiene technique 7. Identify and instruct patient/patient hotel services sales representative in use of appropriate isolation precautionsfor identified infection/symptoms 8. Provide and discuss with patient/patient hotel services sales representative on educational MDRO sheet 9. Encourage and monitor nutritional status daily and consult painter helper sign if indicated 10. Implement neutropenic guidelines as needed 11. Review exposure to history of communicable disease and recent travel history on admission 12. Encourage annual influenza vaccine 13. Encourage pneumonia vaccine Outcome: Progressing Note: Evaluation of progress towards goal: Monitor labs and vital signs. Patient afebrile at this time. Problem: Knowledge Deficit Goal: Patient/patient hotel services sales representative demonstrates understanding of disease process, treatment plan,medications, and discharge instructions Description: INTERVENTIONS 1. Complete learning assessment and assess knowledge base 2. Provide teaching at level of understanding 3. Provide teaching via preferred learning method(s) Outcome: Progressing Note: Evaluation of progress towards goal: Plan of care reviewed with patient. Medications discussed prior to administration. * Plan of Care - Selam Pantoja RN - 12/30/2023 12:50 AM EDT Problem: Safety Goal: Patient will be injury free during hospitalization Description: INTERVENTIONS: 1. Assess patient's risk for falls and implement fall prevention plan of care per policy 2. Provide and maintain a safe environment 3. Proper use of double Identifiers 4. Medication administration using the 5 rights 5. Hand hygiene 6. Specimens are labeled at the bedside 7. Instruct patient/ patient hotel services sales representative about use of safety devices 8. Include patient/ patient hotel services sales representative in decisions related to safety Outcome: Progressing Note: Evaluation of progress towards goal:Safety maintained, call light and personal items within reach * Plan of Care - Kayleigh Alfredo RN - 12/29/2023 8:25 AM EDT Problem: Pain Goal: Patient goal is pain score less than 4, able to rest, and participant in treatment plan as appropriate Description: INTERVENTIONS: 1. Encourage patient or legal hotel services sales representative to report early pain and ask [...] per policy 9. Teach patient or legal hotel services sales representative interventions for comforting Outcome: Progressing Note: [...] at the bedside 7. Instruct patient/ patient hotel services sales representative about use of safety devices 8. Include patient/ patient hotel services sales representative in decisions related to safety Outcome: [...] hygiene technique 7. Identify and instruct patient/patient hotel services sales representative in use of appropriate isolation precautionsfor identified infection/symptoms 8. Provide and discuss with patient/patient hotel services sales representative on educational MDRO sheet 9. Encourage and monitor nutritional status daily and consult painter helper sign if indicated 10. Implement neutropenic guidelines as needed 11. Review exposure to history of communicable disease and recent travel history on admission 12. Encourage annual influenza vaccine 13. Encourage pneumonia vaccine Outcome: Progressing Note: Evaluation of progress towards goal: Monitor labs and vital signs. Patient afebrile at this time. Problem: Knowledge Deficit Goal: Patient/patient hotel services sales representative demonstrates understanding of disease process, treatment plan,medications, and discharge instructions Description: INTERVENTIONS 1. Complete learning assessment and assess knowledge base 2. Provide teaching at level of understanding 3. Provide teaching via preferred learning method(s) Outcome: Progressing Note: Evaluation of progress towards goal: Plan of care reviewed with patient. Medications discussed prior to administration. * Plan of Care - Selam Pantoja RN - 12/28/2023 11:20 PM EDT Problem: Safety Goal: Patient will be injury free during hospitalization Description: INTERVENTIONS: 1. Assess patient's risk for falls and implement fall prevention plan of care per policy 2. Provide and maintain a safe environment 3. Proper use of double Identifiers 4. Medication administration using the 5 rights 5. Hand hygiene 6. Specimens are labeled at the bedside 7. Instruct patient/ patient hotel services sales representative about use of safety devices 8. Include patient/ patient hotel services sales representative in decisions related to safety Outcome: Progressing Note: Evaluation of progress towards goal:Safety maintained, call light and personal items within reach * Discharge Planning Note - Jennifer Kimbrough - 12/28/2023 4:39 PM EDT DISCHARGE PLANNING NOTE Referral sent to. [facility] [place]- P# ; F# [facility] - [facility] (formerly [facility]) (P# ; F# ) [address] (P# ; F# ) [facility] formerly, [facility] and [facility] ([place]: P# ; F# ); * Discharge Planning Note - Chioma Olsen - 12/28/2023 4:24 PM EDT DISCHARGE PLANNING NOTE Referral sent to [facility] [place] [place] [place] [facility] - (P# ; F# ) * Query Response - Georgie Menendez MD - 12/28/2023 2:38 PM EDT Query Response Note AUTOMATED QUERY TEXT: Type [...] by: Georgie Menendez MD 12/28/2023 2:36 PM * Plan of Care - Mey Del Angel RN - 12/28/2023 9:55 AM EDT Problem: Pain Goal: Patient goal is pain score less than 4, able to rest, and participant in treatment plan as appropriate Description: INTERVENTIONS: 1. Encourage patient or legal hotel services sales representative to report early pain and ask [...] per policy 9. Teach patient or legal hotel services sales representative interventions for comforting Outcome: Progressing Note: [...] at the bedside 7. Instruct patient/ patient hotel services sales representative about use of safety devices 8. Include patient/ patient hotel services sales representative in decisions related to safety Outcome: [...] hygiene technique 7. Identify and instruct patient/patient hotel services sales representative in use of appropriate isolation precautionsfor identified infection/symptoms 8. Provide and discuss with patient/patient hotel services sales representative on educational MDRO sheet 9. Encourage and monitor nutritional status daily and consult painter helper sign if indicated 10. Implement neutropenic guidelines as needed 11. Review exposure to history of communicable disease and recent travel history on admission 12. Encourage annual influenza vaccine 13. Encourage pneumonia vaccine Outcome: Progressing Note: Evaluation of progress towards goal: continue iv antibiotics for ear infection Problem: Knowledge Deficit Goal: Patient/patient hotel services sales representative demonstrates understanding of disease process, treatment plan,medications, and discharge instructions Description: INTERVENTIONS 1. Complete [...] goal: plans to return home at discharge * Plan of Care - Gianna Philippe RN - 12/27/2023 11:42 PM EDT Problem: Pain Goal: Patient goal is pain score less than 4, able to rest, and participant in treatment plan as appropriate Description: INTERVENTIONS: 1. Encourage patient or legal hotel services sales representative to report early pain and ask [...] per policy 9. Teach patient or legal hotel services sales representative interventions for comforting Outcome: Progressing Note: [...] at the bedside 7. Instruct patient/ patient hotel services sales representative about use of safety devices 8. Include patient/ patient hotel services sales representative in decisions related to safety Outcome: Progressing Note: Evaluation of progress towards goal: patient's room is free of clutter, bed is locked and in the lowest position, call light and personal belongings are within reach. Hourly rounding completed and will continue throughout shift. Will continue to monitor. * Plan of Care - Vinita Clarke RN - 12/27/2023 11:08 AM EDT Problem: Pain Goal: Patient goal is pain score less than 4, able to rest, and participant in treatment plan as appropriate Description: INTERVENTIONS: 1. Encourage patient or legal hotel services sales representative to report early pain and ask [...] per policy 9. Teach patient or legal hotel services sales representative interventions for comforting Outcome: Progressing Note: [...] at the bedside 7. Instruct patient/ patient hotel services sales representative about use of safety devices 8. Include patient/ patient hotel services sales representative in decisions related to safety Outcome: Progressing Note: Evaluation of progress towards goal: Pt walkway clear and well lit. Safety measures in place,plan of care ongoing. Problem: Infection Goal: Absence [...] hygiene technique 7. Identify and instruct patient/patient hotel services sales representative in use of appropriate isolation precautionsfor identified infection/symptoms 8. Provide and discuss with patient/patient hotel services sales representative on educational MDRO sheet 9. Encourage and monitor nutritional status daily and consult painter helper sign if indicated 10. Implement neutropenic guidelines as needed 11. Review exposure to history of communicable disease and recent travel history on admission 12. Encourage annual influenza vaccine 13. Encourage pneumonia vaccine Outcome: Progressing Note: Evaluation of progress towards goal: Pt denies fever., no purulent drainage noted. Plan of care on going. Problem: Knowledge Deficit Goal: Patient/patient hotel services sales representative demonstrates understanding of disease process, treatment plan,medications, and discharge instructions Description: INTERVENTIONS 1. Complete learning assessment and assess knowledge base 2. Provide teaching at level of understanding 3. Provide teaching via preferred learning method(s) Outcome: Progressing Note: Evaluation of progress towards goal: Will continue to assess pt and educate until verbalizinga level of understanding. Problem: Discharge Planning Goal: [...] Pt will be discharged with appropriate resources. * Plan of Care - Nadia Clarke RN - 12/27/2023 3:10 AM EDT Problem: Pain Goal: Patient goal is pain score less than 4, able to rest, and participant in treatment plan as appropriate Description: INTERVENTIONS: 1. Encourage patient or legal hotel services sales representative to report early pain and ask [...] per policy 9. Teach patient or legal hotel services sales representative interventions for comforting Outcome: Progressing Note: [...] at the bedside 7. Instruct patient/ patient hotel services sales representative about use of safety devices 8. Include patient/ patient hotel services sales representative in decisions related to safety Outcome: [...] hygiene technique 7. Identify and instruct patient/patient hotel services sales representative in use of appropriate isolation precautionsfor identified infection/symptoms 8. Provide and discuss with patient/patient hotel services sales representative on educational MDRO sheet 9. Encourage and monitor nutritional status daily and consult painter helper sign if indicated 10. Implement neutropenic guidelines as needed 11. Review exposure to history of communicable disease and recent travel history on admission 12. Encourage annual influenza vaccine 13. Encourage pneumonia vaccine Outcome: Progressing Note: Evaluation of progress towards goal: Pt is free of signs and symptoms of infection, Continue to monitor labs and pt. Problem: Knowledge Deficit Goal: Patient/patient hotel services sales representative demonstrates understanding of disease process, treatment plan,medications, and discharge instructions Description: INTERVENTIONS 1. Complete [...] be free from fall Description: Interventions: 1. [place] to environment 2. Hourly rounds addressing the [...] non-skid footwear 11. Teach patient and patient hotel services sales representative to maintain environment for safety and [...] (cane, walker) within reach 19. Request patient hotel services sales representative bring adaptive equipment/mobility aids from home or obtain and provide as needed 20. Consult pharmacy regarding effects of med's affecting mobility, cognition, and alternatives 21. Obtain physician order for PT if risk factors associated with mobility are present 22. Obtain physician order for OT as appropriate 23. Utilize diversional activities 24. Educate patient and patient hotel services sales representative how to maintain a safe environment during visitationtimes (notify nurse prior to leaving bedside) 25. Consider appropriateness of medical or non-medical office technician 26. Set up voiding schedule as appropriate (every 2 hours) Outcome: Progressing Note: Evaluation of progress towards goal: Pt will be free of falls during admission. * Plan of Care - Cintia Alexander RN - 12/26/2023 6:04 PM EDT Problem: Safety Goal: Patient will be injury free during hospitalization Description: INTERVENTIONS: 1. Assess patient's risk for falls and implement fall prevention plan of care per policy 2. Provide and maintain a safe environment 3. Proper use of double Identifiers 4. Medication administration using the 5 rights 5. Hand hygiene 6. Specimens are labeled at the bedside 7. Instruct patient/ patient hotel services sales representative about use of safety devices 8. Include patient/ patient hotel services sales representative in decisions related to safety Outcome: Progressing Note: Evaluation of progress towards goal: Assess safety q4h, prn. Bed in low and locked position. Call light in reach. Safety maintained. [facility] Hospital course Narrative* Georgie Menendez MD - 12/31/2023 2:31 PM EDT Images from the original note were not included. DISCHARGE NOTE Demographics: Patient Name: Yue Delgadillo : 1950 DATE OF ADMISSION: 12/26/2023 DATE OF DISCHARGE: 12/31/2023 DISCHARGE DIAGNOSES: Principal Problem: Mastoiditis of right side Active Problems: Essential hypertension Asthma in adult, mild persistent, uncomplicated Hyperlipidemia CONSULTANTS: Consulting Providers Provider Service Specialty Seamus Marino MD Z Infectious Disease Infectious Disease Balaji Lisa DO -- Otolaryngology [facility] Division Of Infectious Disease -- Infectious [...] stay. He is currently improving. Pain has improvedsignificantly. Per ID and ENT, plan to continue [...] since symptoms are improving, plan to discharge onIV antibiotics with cefepime until January 08. Midline [...] Adult diet Follow up: Brianna Brunner MD [address] [facility] [facility] [id number] Follow up in 1 week(s) Seamus Marino MD [address] [facility], [address] [facility] [id number] Follow up in 1 week(s) Phylicia Gunderson DO [address] [facility], [address] [facility] [id number] Follow up in 2 week(s) For most [...] bedtime. Do all this for 10 days. jvxuqier-hmei-[place]-calcium &mins 9 mg iron-400 mcg tablet Commonly [...] Your Medications These medications were sent to [facility] [id number] [facility] [address] [facility] [address] ([facility] [address] [place]) [address] [facility] [id number] ciprofloxacin-dexAMETHasone otic suspension traMADoL 50 mg tablet You can get these medications from any pharmacy Bring a paper prescription for each of these medications cefepime 100 gram recon soln cefEPime 2,000 mg in sodium chloride 0.9 % 100 mL IVPB MINI-BAG Plus I have spent a total of 35 minutes in the care of this patient. More than 50% of the time was spentcounseling/coordinating care. Electronically signed by: Georgie Menendez MD 42:31 PM documented in this encounterK[facility] Progress note* Discharge Planning Note - Pricilla Downey RN - 12/31/2023 11:45 AM EDT DISCHARGE PLANNING NOTE Met with patient and his . Discussed the cost of antibiotics will be 249.75/per week, they are accepting of cost. They have chosen [facility]. Awaiting scripts and midline placement [...] notified of this and are in agreement. [facility] [id number] History of Present illness Narrative* Seamus Marino MD - 12/31/2023 10:48 AM EDT Images from the original note were not included. Division of Infectious Diseases - Progress Note [facility] - Academic Team 2 During Business Hours: Please use Flare3d for communication. After Hours: Please call for [...] Min: 36.3 C (97.3 F) Max: 36.8 C(98.2 F) Constitutional: Awake, alert, and in no apparent distress. Eyes: Sclera anicteric, conjunctivae pink. ENT/Mouth: Right mastoid bone is much less painful than previously. Neck: Supple, without lymphadenopathy. Cardiovascular: Regular rate and rhythm without murmurs, rubs, or gallops. Respiratory: Clear to auscultation, without wheezes, rales, or rhonchi. Gastrointestinal/Abdomen: Soft, non-tender; no masses or hepatosplenomegaly. Genitourinary/Genitalia, Groin, Buttocks: Deferred. Musculoskeletal/Extremities/Back: No cyanosis, clubbing, edema, or effusions. Skin: [...] from last 7 days Lab Units 12/30/2351312/29/2345712/28/23456 SODIUM mmol/L 138 139 136 POTASSIUM mmol/L 3.9 4.1 4.1 CHLORIDE mmol/L 103 106 103 CO2 mmol/L 25 22 21* BUN mg/dL 21 22 16 CREATININE mg/dL 0.93 0.94 0.90 CALCIUM mg/dL 9.0 9.0 9.2 Cultures: Microbiology Results Procedure Component Value Units Date/Time Blood culture [[id number]] Collected: 12/26/23 131 Specimen: Blood Updated: 12/30/23 135 Culture NO GROWTH 4 DAYS Blood culture [[id number]] Collected: 12/26/23 131 Specimen: Blood Updated: 12/30/23 1353 Culture NO GROWTH 4 DAYS Medications: allopurinoL, 300 mg, oral, Daily amLODIPine, 10 mg, oral, Daily aspirin, 81 mg, oral, Daily atorvastatin, 10 mg, oral, Daily [COMPLETED] cefepime (MAXIPIME) IV, 2,000 mg, intravenous, Once FOLLOWED BY cefepime (MAXIPIME)IV, 2,000 mg, intravenous, Q8H ciprofloxacin-dexAMETHasone, 4 drop, [...] FIDSA From 7AM-7PM: From 7AM-7PM: Please use Flare3d for communication. From 7PM-7AM: Please call for our answering service. * Yue Camerondylan, JAVASCRIPT DEVELOPER-ACUTE CARE NURSE PRACTITIONER - 12/31/2023 9:36 AM EDT OTOLARYNGOLOGY S: Yue Delgadillo was seen and [...] aid consultation. Will discuss with Dr. Gunderson. Yue PEDROZA [facility] Contact through office [phone] No results found for this or any previous visit (from the past 24 hour(s)). YOVANY Morel 12/31/23 0939 * Seamus Marino MD - 12/30/2023 2:05 PM EDT Images from the original note were not included. Division of Infectious Diseases - Progress Note [facility] - Academic Team 2 During Business Hours: Please use Flare3d for communication. After Hours: Please call for our answering service. Patient name: Yue Delgadillo Patient Today's Date and Time: 12/30/2023, 2:05 PM Admission Date: 12/26/2023 Primary Care Physician: Brianna Brunner MD Impression and Recommendations: Right-sided mastoiditis. Right-sided otitis externa. Right suppurative otitis media with effusion. The patient has been placed on cefepime 2 g IV every 8 hours. He has improved substantially on thisregimen. This appears to be mastoiditis related to Pseudomonas aeruginosa. There are 2 options, which include cefepime via midline catheter as an outpatient, or transition tofluoroquinolone. The patient and family appear to prefer [...] fevers or chills. There is no nausea vomiting.There is no cough. There is no muscle [...] masses or hepatosplenomegaly. Genitourinary/Genitalia, Groin, Buttocks: Deferred. Musculoskeletal/Extremities/Back: No cyanosis, clubbing, edema, or effusions. Skin: [...] bone, and my interpretation is as follows: Constellationof findings for which right otomastoiditis are considered, in the appropriate clinical context. Cultures: Microbiology Results Procedure Component Value Units Date/Time Blood culture [[id number]] Collected: 12/26/231317 Specimen: Blood Updated: 12/30/23 135 Culture NO GROWTH 4 DAYS Blood culture [[id number]] Collected: 12/26/231317 Specimen: Blood Updated: 12/30/23 135 Culture NO GROWTH 4 DAYS Medications: allopurinoL, 300 mg, oral, Daily amLODIPine, 10 mg, oral, Daily aspirin, 81 mg, oral, Daily atorvastatin, 10 mg, oral, Daily [COMPLETED] cefepime (MAXIPIME) IV, 2,000 mg, intravenous, Once FOLLOWED BY cefepime (MAXIPIME)IV, 2,000 mg, intravenous, Q8H ciprofloxacin-dexAMETHasone, 4 drop, [...] FIDSA From 7AM-7PM: From 7AM-7PM: Please use Flare3d for communication. From 7PM-7AM: Please call for our answering service. * Georgie Menendez MD - 12/30/2023 12:53 PM EDT 12/30/2023 Patient Name: Yue Delgadillo : 1950 [...] for IV antibiotics to be continued at home.Likely tomorrow when IV infusion can be arranged. [...] has been identified and corrected by editing. * Georgie Menendez MD - 12/29/2023 1:48 PM EDT 12/29/2023 Patient Name: Yue Delgadillo : 1950 [...] Pain improving. No nausea. No fevers.Good oral intake.No nausea or vomiting. Review of Systems: All 12 systems were negative unless mentioned in the present history. OBJECTIVE: Exam: BP 132/87 Pulse 68 Temp 36.7 C (98 F) (Oral) Resp 16 Ht 177.8 cm (5' 10 ) Wt 93.8 kg (206lb 12.7 oz) SpO2 91% BMI 29.67 kg/m [...] has been identified and corrected by editing. * Phylicia Gunderson, DO - 12/29/2023 10:35 AM EDT Images from the original note were not [...] and crackling sounds in the right ear butotherwise his hearing is essentially back to baseline. [...] 12/27/23 0432 12/26/23 1318 05/24/23 1131 06/08/20 [id number] White Blood Cells 4.0 - 11.0 [...] was brought up by Infectious Disease again yesterday.We discussed that as he has shown significant clinical improvement, I do not think this needs to beperformed at this time. There is nothing within the canal itself to biopsy, this would require a mastoidectomy with biopsy. If Infectious Disease needs a biopsy for further recommendations, I would be happy to discuss this with them. Phylicia Gunderson DO Otolaryngology Head and Neck Surgery * Georgie Menendez MD - 12/28/2023 2:16 PM EDT 12/28/2023 Patient Name: Yue Delgadillo : 1950 [...] has been identified and corrected by editing. * Seamus Marino MD - 12/28/2023 10:43 AM EDT Images from the original note were not included. Division of Infectious Diseases - Progress Note [facility] - Academic Team 2 During Business Hours: Please use Flare3d for communication. After Hours: Please call for [...] does improve, may consider fluoroquinolones. The issue withouta biopsy is that we do not know [...] Min: 36.3 C (97.3 F) Max: 36.7 C(98.1 F) Constitutional: Awake, alert, and in no apparent distress. Eyes: Sclera anicteric, conjunctivae pink. ENT/Mouth: Right mastoid bone is still painful. Neck: Supple, without lymphadenopathy. Cardiovascular: Regular rate and rhythm without murmurs, rubs, or gallops. Respiratory: Clear to auscultation, without wheezes, rales, or rhonchi. Gastrointestinal/Abdomen: Soft, non-tender; no masses or hepatosplenomegaly. Genitourinary/Genitalia, Groin, Buttocks: Deferred. Musculoskeletal/Extremities/Back: No cyanosis, clubbing, edema, or effusions. Skin: [...] bone, and my interpretation is as follows: Constellationof findings for which right otomastoiditis are considered, in the appropriate clinical context. Cultures: Microbiology Results Procedure Component Value Units Date/Time Blood culture [[id number]] Collected: 12/26/231317 Specimen: Blood Updated: 12/27/23 1354 Culture NO GROWTH 1 DAY Blood culture [[id number]] Collected: 12/26/23 131 Specimen: Blood Updated: 12/27/23 1353 Culture NO GROWTH 1 DAY Medications: allopurinoL, 300 mg, oral, Daily amLODIPine, 10 mg, oral, Daily aspirin, 81 mg, oral, Daily atorvastatin, 10 mg, oral, Daily [COMPLETED] cefepime (MAXIPIME) IV, 2,000 mg, intravenous, Once FOLLOWED BY cefepime (MAXIPIME)IV, 2,000 mg, intravenous, Q8H ciprofloxacin-dexAMETHasone, 4 drop, right ear, BID pantoprazole, 40 mg, oral, Daily sodium chloride, 3 mL, intravenous, Q12H VENESSA It is not necessary to call with new culture results. Thank you for allowing us to participate in the care of this patient. Please call with questions. Seamus Marino MD, MPH, [facility] From 7AM-7PM: From 7AM-7PM: Please use Flare3d for communication. From 7PM-7AM: Please call for our answering service. * Phylicia Gunderson, - 12/28/2023 9:36 AM EDT OTOLARYNGOLOGY S: Yue Delgadillo was seen and examined lying on left side in bed, Ciprodex drops were administered just prior to my arrival. Now on IV cefepime per ID recommendations. He has also been given 3doses of IV Decadron. He notes some improvement. He denies continued sharp, stabbing right ear painwith reduced fullness. He feels that his hearing [...] obvious skin lesions, Normal hearing in exam room,No visible erythema or swelling overlying mastoid region., trace blood present in canal, wet white debris deep in canal just anterior to TM, fluid pooled deep in the canal obscuring vision of the TM consistent with recent ear drop administration., PE tube was not visualized. TMJ: no pain, crepitus,or trismus Neck: normal, supple, no adenopathy, thyroid [...] will continue to follow Will discuss with Dr. Neptali Miller PA-C [facility] Contact through office [phone] Recent Results (from the past 24 hour(s)) [...] - 0.2 X10E9/L Mag Miller PA-C 12/28/23 0990 IPhylicia DO, personally performed the face to face diagnostic evaluation on this patient.My findings are as follows: Patient seen and examined. He is sleeping. After waking he states he isfeeling much better. He no longer can hear [...] DO Otolaryngology Head and Neck Surgery . * Gavin Easton, [facility] - 12/27/2023 1:27 PM EDT [facility] Department of Pharmacy Pharmacy-Physician Communication Pt name: Yue Cifuentes [place] Room: OBS33/[address] Trey Lundy MD Your patient is currently taking the medication Cefepime, which is primarily excreted renally. Pema patient s renal function: Results from last 7 days Lab Units 12/27/23 0432 CREATININE mg/dL 0.88 Estimated Creatinine Clearance: 78.3 mL/min (by C-G formula based on SCr of 0.88 mg/dL). Indication: otomastoiditis Cefepime regimen was adjusted per [facility] policy Thank you for your consideration. If we can offer more assistance, please fee free to call us at [phone]. Gavin Easton, PharmD, [facility] * Trey Lundy MD - 12/27/2023 10:12 AM EDT Images from the original note were not included. [facility] Hospitalist [facility] 12/27/2023 Patient Name: Yue Delgadillo : 1950 [...] 50 % in water (D50W) flu vacc [id number] 6mos up(PF) glucagon (human recombinant) sodium chloride [...] * 73 years old Male * Mastoiditis COMPARISON:CT neck 01/13/2024, MRI brain 05/15/2017 TECHNIQUE: 1. [...] segment of the facial nerve. The vestibular apparatus(including semicircular canals), vestibular aqueduct, cochlea, and course of the facial nerve are normal in appearance. LEFT: The external auditory canal is unremarkable. The mastoid air cells are well aerated. The scutum is sharp. Tympanic membrane is unremarkable. Normal tympanic annulus. Tegmen mastoideum and tympani are normal. Middle ear cavity is well aerated. The ossicular chain is intact.Oval and round windows are well aerated. Normal [...] 1. Constellation of findings for which right josie mastoiditis are considered, in the appropriate clinical context. No evidence of associated complication by CT, as described. 2. Thinning of the right tegmen mastoideum and tegmen tympani, without evidence of olu dehiscence, and no evidence of intracranial involvement by CT. If there is concern for intracranial complication, MRI may be of diagnostic value. Finalized by Narcisa Santillan MD on 12/26/2023 5:[address] neck soft tissue with contrast Result Date: 12/26/2023 EXAM: CT NECK WITH CONTRAST CLINICAL INFORMATION: Soft tissue infection suspected, neck, xray done.TECHNIQUE: CT neck was performed utilizing 5 mm [...] parotid and submandibular glands are symmetric and unr emarkable. The carotid arteries and jugular veins are unremarkable. The limited visualized lung apices are unremarkable. There is polypoid mucosal thickening in the left maxillary sinus with areas ofhigh attenuation compatible with fungal infection or inspissated [...] Procedure Component Value Units Date/Time Blood culture [[id number]] Collected: 12/26/231317 Specimen: Blood Updated: 12/27/23153 Culture NO GROWTH <24 HRS Blood culture [[id number]] Collected: 12/26/238 Specimen: Blood Updated: 12/27/233 Culture NO GROWTH <24 HRS * Phylicia Gunderson DO - 12/27/2023 10:09 AM EDT [facility] SUBJECTIVE: Patient ID (1950): Yue Delgadillo was seen and examined family present in room. No acuteovernight events. He denies much change in symptoms, he continues to report significant right ear pain and fullness, but states that pain medication helps to take the edge off. White count is 8.5. Hecontinues on IV Unasyn and Ciprodex. Denies fever, chills, nausea, vomiting, visual disturbance. CTneck and temporal bones completed yesterday. HISTORY: Past Medical History: Diagnosis Date Arthritis Asthma GERD (gastroesophageal reflux disease) Gout HL (hearing loss) Hyperlipidemia Hypertension Mastoiditis of right side 12/26/2023 Pneumonia Prostate cancer ([facility]) Visual impairment Past Surgical History: Procedure Laterality Date APPENDECTOMY CARDIAC CATHETERIZATION COLONOSCOPY COLONOSCOPY DIAGNOSTIC / SCREENING N/A 02/21/2023 Performed by Buddy Ureña MD at [facility] JOINT REPLACEMENT 01/02/2020 PROSTATE BIOPSY PROSTATECTOMY REPLACEMENT TOTAL KNEE Right TOOTH EXTRACTION VASECTOMY 1988 Family History Problem Relation Age of Onset [place]'s disease Mother Asthma Mother Heart disease Father [...] min Stress: No Stress Concern Present (05/03/2020) [employer] - Occupational Stress Questionnaire Feeling of Stress : Not at all Social Connections: Socially Integrated (05/03/2020) Social Connection and Isolation Panel [NHANES] Frequency of Communication with Friends and Family: More than three times a week Frequency of Social Gatherings with Friends and Family: Twice a week Attends Hindu Services: 1 to 4 times per year [...] 1,000 mg 1,000 mg oral Q8H Trey Lnudy MD 1,000 mgat 12/27/23 0845 allopurinoL (ZYLOPRIM) tablet 300 mg [...] intravenous PRN Trey Lundy MD flu vacc [id number] 6mos up(PF) (FLULAVAL/FLUZONE/FLUARIX TRIV) injection syringe 0.5 mL 0.5 mL intramuscular During hospitalization Trey Lundy MD glucagon HCL injection 1 mg 1 mg intramuscular PRN Trey Lundy MD pantoprazole (PROTONIX) EC tablet 40 mg 40 mg oral Daily Trey Lundy MD 40 mg at 12/27/23 0442 sodium chloride 0.9 % flush 10 mL 10 mL intravenous PRN Fadi Mata, DO 10 mL at 12/26/23 1627 sodium [...] CT with multiplanar reformats. Examination performed following theuneventful intravenous administration of contrast. 2. All CT scans at this facility use dose modulation, iterative reconstruction, and/or weight baseddosing when appropriate to reduce radiation dose to [...] antrum with associated moderate opacification of the rightmastoid air cells. Mastoid air cell septae appear [...] obvious skin lesions, Normal hearing in exam room,No visible erythema or swelling overlying mastoid region., [...] Will Discuss with Dr. Neptali MILLER PA-C [facility] Contact Office during business hours After Hours Answering Service Please note that parts of this chart were generated using voice recognition M*Modal dictation software. Although every effort was made to ensure the accuracy of this automated dredge deckhand, some errors in dredge deckhand may have occurred. Mag Miller PA-C 12/27/23 1023 I, Phylicia uGnderson DO, personally performed the face to face diagnostic evaluation on this patient.My findings are as follows: Patient seen and [...] and Neck Surgery . documented in this [facility] Plan of care note * Plan of Care - Selam Pantoja RN - 12/30/2023 11:38 PM EDT Problem: Safety Goal: Patient will be injury free during hospitalization Description: INTERVENTIONS: 1. Assess patient's risk for falls and implement fall prevention plan of care per policy 2. Provide and maintain a safe environment 3. Proper use of double Identifiers 4. Medication administration using the 5 rights 5. Hand hygiene 6. Specimens are labeled at the bedside 7. Instruct patient/ patient hotel services sales representative about use of safety devices 8. Include patient/ patient hotel services sales representative in decisions related to safety Outcome: Progressing Note: Evaluation of progress towards goal:Safety maintained, call light and personal items within reach [facility] [employer] [id number] Plan of care note* Plan of Care - Kayleigh Alfredo RN - 12/30/2023 3:53 PM EDT Problem: Pain Goal: Patient goal is pain score less than 4, able to rest, and participant in treatment plan as appropriate Description: INTERVENTIONS: 1. Encourage patient or legal hotel services sales representative to report early pain and ask [...] per policy 9. Teach patient or legal hotel services sales representative interventions for comforting Outcome: Progressing Note: [...] at the bedside 7. Instruct patient/ patient hotel services sales representative about use of safety devices 8. Include patient/ patient hotel services sales representative in decisions related to safety Outcome: [...] hygiene technique 7. Identify and instruct patient/patient hotel services sales representative in use of appropriate isolation precautionsfor identified infection/symptoms 8. Provide and discuss with patient/patient hotel services sales representative on educational MDRO sheet 9. Encourage and monitor nutritional status daily and consult painter helper sign if indicated 10. Implement neutropenic guidelines as needed 11. Review exposure to history of communicable disease and recent travel history on admission 12. Encourage annual influenza vaccine 13. Encourage pneumonia vaccine Outcome: Progressing Note: Evaluation of progress towards goal: Monitor labs and vital signs. Patient afebrile at this time. Problem: Knowledge Deficit Goal: Patient/patient hotel services sales representative demonstrates understanding of disease process, treatment plan,medications, and discharge instructions Description: INTERVENTIONS 1. Complete learning assessment and assess knowledge base 2. Provide teaching at level of understanding 3. Provide teaching via preferred learning method(s) Outcome: Progressing Note: Evaluation of progress towards goal: Plan of care reviewed with patient. Medications discussed prior to administration. [facility]-06[facility] Plan of care note* Plan of Care - Selam Pantoja RN - 12/30/2023 12:50 AM EDT Problem: Safety Goal: Patient will be injury free during hospitalization Description: INTERVENTIONS: 1. Assess patient's risk for falls and implement fall prevention plan of care per policy 2. Provide and maintain a safe environment 3. Proper use of double Identifiers 4. Medication administration using the 5 rights 5. Hand hygiene 6. Specimens are labeled at the bedside 7. Instruct patient/ patient hotel services sales representative about use of safety devices 8. Include patient/ patient hotel services sales representative in decisions related to safety Outcome: Progressing Note: Evaluation of progress towards goal:Safety maintained, call light and personal items within reach [facility]10-05-[facility] Plan of care note* Plan of Care - Kayleigh Alfredo RN - 12/29/2023 8:25 AM EDT Problem: Pain Goal: Patient goal is pain score less than 4, able to rest, and participant in treatment plan as appropriate Description: INTERVENTIONS: 1. Encourage patient or legal hotel services sales representative to report early pain and ask [...] per policy 9. Teach patient or legal hotel services sales representative interventions for comforting Outcome: Progressing Note: [...] at the bedside 7. Instruct patient/ patient hotel services sales representative about use of safety devices 8. Include patient/ patient hotel services sales representative in decisions related to safety Outcome: [...] hygiene technique 7. Identify and instruct patient/patient hotel services sales representative in use of appropriate isolation precautionsfor identified infection/symptoms 8. Provide and discuss with patient/patient hotel services sales representative on educational MDRO sheet 9. Encourage and monitor nutritional status daily and consult painter helper sign if indicated 10. Implement neutropenic guidelines as needed 11. Review exposure to history of communicable disease and recent travel history on admission 12. Encourage annual influenza vaccine 13. Encourage pneumonia vaccine Outcome: Progressing Note: Evaluation of progress towards goal: Monitor labs and vital signs. Patient afebrile at this time. Problem: Knowledge Deficit Goal: Patient/patient hotel services sales representative demonstrates understanding of disease process, treatment plan,medications, and discharge instructions Description: INTERVENTIONS 1. Complete learning assessment and assess knowledge base 2. Provide teaching at level of understanding 3. Provide teaching via preferred learning method(s) Outcome: Progressing Note: Evaluation of progress towards goal: Plan of care reviewed with patient. Medications discussed prior to administration. [facility] [employer] [id number] Plan of care note* Plan of Care - Selam Pantoja RN - 12/28/2023 11:20 PM EDT Problem: Safety Goal: Patient will be injury free during hospitalization Description: INTERVENTIONS: 1. Assess patient's risk for falls and implement fall prevention plan of care per policy 2. Provide and maintain a safe environment 3. Proper use of double Identifiers 4. Medication administration using the 5 rights 5. Hand hygiene 6. Specimens are labeled at the bedside 7. Instruct patient/ patient hotel services sales representative about use of safety devices 8. Include patient/ patient hotel services sales representative in decisions related to safety Outcome: Progressing Note: Evaluation of progress towards goal:Safety maintained, call light and personal items within reach [facility] Progress note* Discharge Planning Note - Jennifer Kimbrough - 12/28/2023 4:39 PM EDT DISCHARGE PLANNING NOTE Referral sent to. [facility]- P# ; F# [facility] ([facility]) (P# ; F# ) [address] (P# ; F# ) [facility], [facility] ([place]: P# ; F# ); [facility]-04[facility] Progress note* Discharge Planning Note - Chioma Olsen - 12/28/2023 4:24 PM EDT DISCHARGE PLANNING NOTE Referral sent to [facility] [place] [place] [facility] - (P# ; F# ) [facility] Hospital Discharge instructions* Discharge Instructions* Georgie Menendez MD - 12/28/2023 3:34 PM EDT During the course of your admission you were seen by [facility]. It is important [...] Disease in the office. documented in this [facility] Progress note* Query Response - Georgie Menendez MD - 12/28/2023 2:38 PM EDT Query Response Note AUTOMATED QUERY TEXT: Type [...] by: Georgie Menendez MD 12/28/2023 2:36 PM [facility] [employer] [id number] Plan of care note* Plan of Care - Mey Del Angel RN - 12/28/2023 9:55 AM EDT Problem: Pain Goal: Patient goal is pain score less than 4, able to rest, and participant in treatment plan as appropriate Description: INTERVENTIONS: 1. Encourage patient or legal hotel services sales representative to report early pain and ask [...] per policy 9. Teach patient or legal hotel services sales representative interventions for comforting Outcome: Progressing Note: [...] at the bedside 7. Instruct patient/ patient hotel services sales representative about use of safety devices 8. Include patient/ patient hotel services sales representative in decisions related to safety Outcome: [...] hygiene technique 7. Identify and instruct patient/patient hotel services sales representative in use of appropriate isolation precautionsfor identified infection/symptoms 8. Provide and discuss with patient/patient hotel services sales representative on educational MDRO sheet 9. Encourage and monitor nutritional status daily and consult painter helper sign if indicated 10. Implement neutropenic guidelines as needed 11. Review exposure to history of communicable disease and recent travel history on admission 12. Encourage annual influenza vaccine 13. Encourage pneumonia vaccine Outcome: Progressing Note: Evaluation of progress towards goal: continue iv antibiotics for ear infection Problem: Knowledge Deficit Goal: Patient/patient hotel services sales representative demonstrates understanding of disease process, treatment plan,medications, and discharge instructions Description: INTERVENTIONS 1. Complete [...] goal: plans to return home at discharge [facility]10-03-2024 Plan of care note* Plan of Care - Gianna Philippe RN - 12/27/2023 11:42 PM EDT Problem: Pain Goal: Patient goal is pain score less than 4, able to rest, and participant in treatment plan as appropriate Description: INTERVENTIONS: 1. Encourage patient or legal hotel services sales representative to report early pain and ask [...] per policy 9. Teach patient or legal hotel services sales representative interventions for comforting Outcome: Progressing Note: [...] at the bedside 7. Instruct patient/ patient hotel services sales representative about use of safety devices 8. Include patient/ patient hotel services sales representative in decisions related to safety Outcome: Progressing Note: Evaluation of progress towards goal: patient's room is free of clutter, bed is locked and in the lowest position, call light and personal belongings are within reach. Hourly rounding completed and will continue throughout shift. Will continue to monitor. [employer]10-03-2024 Consult note* Seamus Marino MD - 12/27/2023 12:11 PM EDTAssociated Order(s): IP CONSULT TO INFECTIOUS DISEASES Images from the original note were not included. Division of Infectious Diseases - Initial Consult Note [facility] - Academic Team 2 During Business Hours: Please page or use Flare3d for communication. After Hours: Please call for [...] patient that was evaluated for right-sided otitis externa.He was seen by an outpatient and a communication spec with a wick having been placed in his ear on December 20, 2023. The ear canal showed mild edema; the patient had a middle ear effusion and intense pain. As an outpatient, the patient has been on oral amoxicillin- clavulanate, Ciprodex drops, and has been managed by an director industrial museum but the patient's pain had persistent. It had extended into his right ear and had radiated. His ear pain and neck pain had gotten worse. ENT has evaluated the patient. Past Medical History: Past Medical History: Diagnosis Date Arthritis Asthma GERD (gastroesophageal reflux disease) Gout HL (hearing loss) Hyperlipidemia Hypertension Mastoiditis of right side 12/26/2023 Pneumonia Prostate cancer ([facility]) Visual impairment Past Surgical History: Past Surgical History: Procedure Laterality Date APPENDECTOMY CARDIAC CATHETERIZATION COLONOSCOPY COLONOSCOPY DIAGNOSTIC / SCREENING N/A 02/21/2023 Performed by Buddy Ureña MD at [facility] JOINT REPLACEMENT 01/02/2020 PROSTATE BIOPSY PROSTATECTOMY [...] min Stress: No Stress Concern Present (05/03/2020) [employer] Occupational Health - Occupational Stress Questionnaire Feeling of Stress : Not at all Social Connections: Socially Integrated (05/03/2020) Social Connection and Isolation Panel [NHANES] Frequency of Communication with Friends and Family: More than three times a week Frequency of Social Gatherings with Friends and Family: Twice a week Attends Hindu Services: 1 to 4 times per year [...] Family History Problem Relation Age of Onset [place]'s disease Mother Asthma Mother Heart disease Father [...] Min: 36.2 C (97.2 F) Max: 36.7 C(98.1 F) Constitutional: Awake, alert, and in no apparent distress. Eyes: Sclera anicteric, conjunctivae pink. ENT/Mouth: Oropharynx clear, without erythema, exudate, or thrush. Neck: Supple, without lymphadenopathy. Cardiovascular: Regular rate and rhythm without murmurs, rubs, or gallops. Respiratory: Clear to auscultation, without wheezes, rales, or rhonchi. Gastrointestinal/Abdomen: Soft, non-tender; no masses or hepatosplenomegaly. Genitourinary/Genitalia, Groin, Buttocks: Deferred. Musculoskeletal/Extremities/Back: No cyanosis, clubbing, edema, or effusions. Skin: [...] Procedure Component Value Units Date/Time Blood culture [[id number]] Collected: 10/02/24 1318 Specimen: Blood Updated: 12/27/23153 Culture NO GROWTH <24 HRS Blood culture [[id number]] Collected: 12/26/23 1318 Specimen: Blood Updated: 12/27/23152 Culture NO GROWTH <24 HRS It is not necessary to call with new culture results. Thank you for allowing us to participate in the care of this patient. Please call with questions. Seamus Marino MD, MPH, FACP, FIDSA From 7AM-7PM: Please page or use Flare3d for communication. From 7PM-7AM: Please call for our answering service. [facility]-03[facility] Consult note* Seamus Marino MD - 12/27/2023 12:11 PM EDTAssociated Order(s): IP CONSULT TO INFECTIOUS DISEASES Images from the original note were not included. Division of Infectious Diseases - Initial Consult Note [facility] - Academic Team 2 During Business Hours: Please page or use Flare3d for communication. After Hours: Please call for [...] patient that was evaluated for right-sided otitis externa.He was seen by an outpatient and a communication spec with a wick having been placed in his ear on December 20, 2023. The ear canal showed mild edema; the patient had a middle ear effusion and intense pain. As an outpatient, the patient has been on oral amoxicillin- clavulanate, Ciprodex drops, and has been managed by an director industrial museum but the patient's pain had persistent. It had extended into his right ear and had radiated. His ear pain and neck pain had gotten worse. ENT has evaluated the patient. Past Medical History: Past Medical History: Diagnosis Date Arthritis Asthma GERD (gastroesophageal reflux disease) Gout HL (hearing loss) Hyperlipidemia Hypertension Mastoiditis of right side 12/26/2023 Pneumonia Prostate cancer ([facility]) Visual impairment Past Surgical History: [...] min Stress: No Stress Concern Present (05/03/2020) [employer] Occupational Health - Occupational Stress Questionnaire Feeling of Stress : Not at all Social Connections: Socially Integrated (05/03/2020) Social Connection and Isolation Panel [NHANES] Frequency of Communication with Friends and Family: More than three times a week Frequency of Social Gatherings with Friends and Family: Twice a week Attends Hindu Services: 1 to 4 times per year [...] Family History Problem Relation Age of Onset [place]'s disease Mother Asthma Mother Heart disease Father [...] Min: 36.2 C (97.2 F) Max: 36.7 C(98.1 F) Constitutional: Awake, alert, and in no apparent distress. Eyes: Sclera anicteric, conjunctivae pink. ENT/Mouth: Oropharynx clear, without erythema, exudate, or thrush. Neck: Supple, without lymphadenopathy. Cardiovascular: Regular rate and rhythm without murmurs, rubs, or gallops. Respiratory: Clear to auscultation, without wheezes, rales, or rhonchi. Gastrointestinal/Abdomen: Soft, non-tender; no masses or hepatosplenomegaly. Genitourinary/Genitalia, Groin, Buttocks: Deferred. Musculoskeletal/Extremities/Back: No cyanosis, clubbing, edema, or effusions. Skin: [...] Procedure Component Value Units Date/Time Blood culture [[id number]] Collected: 12/26/231317 Specimen: Blood Updated: 12/27/23 0154 Culture NO GROWTH <24 HRS Blood culture [[id number]] Collected: 12/26/23 1318 Specimen: Blood Updated: 12/27/23 0153 Culture NO GROWTH <24 HRS It is not necessary to call with new culture results. Thank you for allowing us to participate in the care of this patient. Please call with questions. Seamus Marino MD, MPH, [facility] From 7AM-7PM: Please page or use Flare3d for communication. From 7PM-7AM: Please call for our answering service. * Eryn-Stephy Sloan, DO - 12/26/2023 2:25 PM EDTAssociated Order(s): IP CONSULT TO ENT [facility] SUBJECTIVE: [...] multiple otic drops. A right myringotomy with PEtube placement was performed in office today, reportedly with significant difficulty. He states that this issue began roughly one-month ago after swimming in a pond. He states that at the onset he experienced intense right-sided ear pain radiating to the face and jaw, ear fullness andhearing loss. He also endorses headache and constant, [...] (hearing loss) Hyperlipidemia Hypertension Pneumonia Prostate cancer ([facility]) Visual impairment Past Surgical History: Procedure Laterality [...] min Stress: No Stress Concern Present (05/03/2020) [employer] Occupational Health - Occupational Stress Questionnaire Feeling of Stress : Not at all Social Connections: Socially Integrated (05/03/2020) Social Connection and Isolation Panel [NHANES] Frequency of Communication with Friends and Family: More than three times a week Frequency of Social Gatherings with Friends and Family: Twice a week Attends Hindu Services: 1 to 4 times per year [...] tablet Take as directed 21 tablet 0 jxyaecyw-yqzx-JY-calcium &mins (THERAGRAN-M) 9 mg iron-400 mcg tablet Take 1 tablet by mouth inthe morning. omega-3 fatty acids-fish oil 300-1,000 mg capsule Take 1,200 mg by mouth daily. omeprazole (PriLOSEC) 20 mg capsule take 2 capsules by mouth every morning 180 capsule 2 simvastatin (ZOCOR) 20 mg tablet TAKE ONE TABLET BY MOUTH EVERY MORNING 90 tablet 3 tobramycin-dexAMETHasone (Tobradex) ophthalmic solution Administer 4 drops to the right ear every 4(four) hours while awake for 7 days. 10 mL 0 traMADoL (ULTRAM) 50 mg tablet Take 1 tablet (50 mg total) by mouth every 8 (eight) hours as neededfor pain for up to 5 days. 15 [...] cm (5' 10 ) Wt 94.2 kg (207lb 10.8 oz) SpO2 96% BMI 29.80 kg/m [...] obvious skin lesions, Normal hearing in exam room,No visible erythema or swelling overlying mastoid region., [...] follow Discussed with Dr. Sloan MILLER PA-C [facility] Contact Office during business hours After Hours Answering Service Please note that parts of this chart were generated using voice recognition [employer] dictation software. Although every effort was made to ensure the accuracy of this automated dredge deckhand, some errors in dredge deckhand may have occurred. Mag Miller PA-C 12/26/23 1452 Mag Miller PA-C 12/26/23 1500 IBalaji DO, personally performed the face to face diagnostic evaluation on this patient. Ihave reviewed the MARTÍN's History, Exam, and MDM and agree with the assessment and plan as written. Balaji Lisa DO 12/26/2023 2104 documented in this encounterK[facility]10-[facility]24 Plan of care note * Plan of Care - Vinita Clarke RN - 12/27/2023 11:08 AM EDT Problem: Pain Goal: Patient goal is pain score less than 4, able to rest, and participant in treatment plan as appropriate Description: INTERVENTIONS: 1. Encourage patient or legal hotel services sales representative to report early pain and ask [...] per policy 9. Teach patient or legal hotel services sales representative interventions for comforting Outcome: Progressing Note: [...] at the bedside 7. Instruct patient/ patient hotel services sales representative about use of safety devices 8. Include patient/ patient hotel services sales representative in decisions related to safety Outcome: Progressing Note: Evaluation of progress towards goal: Pt walkway clear and well lit. Safety measures in place,plan of care ongoing. Problem: Infection Goal: Absence [...] hygiene technique 7. Identify and instruct patient/patient hotel services sales representative in use of appropriate isolation precautionsfor identified infection/symptoms 8. Provide and discuss with patient/patient hotel services sales representative on educational MDRO sheet 9. Encourage and monitor nutritional status daily and consult painter helper sign if indicated 10. Implement neutropenic guidelines as needed 11. Review exposure to history of communicable disease and recent travel history on admission 12. Encourage annual influenza vaccine 13. Encourage pneumonia vaccine Outcome: Progressing Note: Evaluation of progress towards goal: Pt denies fever., no purulent drainage noted. Plan of care on going. Problem: Knowledge Deficit Goal: Patient/patient hotel services sales representative demonstrates understanding of disease process, treatment plan,medications, and discharge instructions Description: INTERVENTIONS 1. Complete learning assessment and assess knowledge base 2. Provide teaching at level of understanding 3. Provide teaching via preferred learning method(s) Outcome: Progressing Note: Evaluation of progress towards goal: Will continue to assess pt and educate until verbalizinga level of understanding. Problem: Discharge Planning Goal: [...] Pt will be discharged with appropriate resources. [facility]10-03-2024 Plan of care note* Plan of Care - Nadia Clarke RN - 12/27/2023 3:10 AM EDT Problem: Pain Goal: Patient goal is pain score less than 4, able to rest, and participant in treatment plan as appropriate Description: INTERVENTIONS: 1. Encourage patient or legal hotel services sales representative to report early pain and ask [...] per policy 9. Teach patient or legal hotel services sales representative interventions for comforting Outcome: Progressing Note: [...] at the bedside 7. Instruct patient/ patient hotel services sales representative about use of safety devices 8. Include patient/ patient hotel services sales representative in decisions related to safety Outcome: [...] hygiene technique 7. Identify and instruct patient/patient hotel services sales representative in use of appropriate isolation precautionsfor identified infection/symptoms 8. Provide and discuss with patient/patient hotel services sales representative on educational MDRO sheet 9. Encourage and monitor nutritional status daily and consult painter helper sign if indicated 10. Implement neutropenic guidelines as needed 11. Review exposure to history of communicable disease and recent travel history on admission 12. Encourage annual influenza vaccine 13. Encourage pneumonia vaccine Outcome: Progressing Note: Evaluation of progress towards goal: Pt is free of signs and symptoms of infection, Continue to monitor labs and pt. Problem: Knowledge Deficit Goal: Patient/patient hotel services sales representative demonstrates understanding of disease process, treatment plan,medications, and discharge instructions Description: INTERVENTIONS 1. Complete [...] Score of =/> 25 or indicated by [facility] Assessment Goal: Patient should be free from fall Description: Interventions: 1. [place] to environment 2. Hourly rounds addressing the [...] non-skid footwear 11. Teach patient and patient hotel services sales representative to maintain environment for safety and [...] (cane, walker) within reach 19. Request patient hotel services sales representative bring adaptive equipment/mobility aids from home or obtain and provide as needed 20. Consult pharmacy regarding effects of med's affecting mobility, cognition, and alternatives 21. Obtain physician order for PT if risk factors associated with mobility are present 22. Obtain physician order for OT as appropriate 23. Utilize diversional activities 24. Educate patient and patient hotel services sales representative how to maintain a safe environment during visitationtimes (notify nurse prior to leaving bedside) 25. Consider appropriateness of medical or non-medical office technician 26. Set up voiding schedule as appropriate (every 2 hours) Outcome: Progressing Note: Evaluation of progress towards goal: Pt will be free of falls during admission. [facility]10-02-2024 Plan of care note* Plan of Care - Cintia Alexander RN - 12/26/2023 6:04 PM EDT Problem: Safety Goal: Patient will be injury free during hospitalization Description: INTERVENTIONS: 1. Assess patient's risk for falls and implement fall prevention plan of care per policy 2. Provide and maintain a safe environment 3. Proper use of double Identifiers 4. Medication administration using the 5 rights 5. Hand hygiene 6. Specimens are labeled at the bedside 7. Instruct patient/ patient hotel services sales representative about use of safety devices 8. Include patient/ patient hotel services sales representative in decisions related to safety Outcome: Progressing Note: Evaluation of progress towards goal: Assess safety q4h, prn. Bed in low and locked position. Call light in reach. Safety maintained. [facility]10-02-2024 Emergency department Note* Rosario Leone RN - 12/26/2023 3:59 PM EDT Bed: 28 Expected date: Expected time: Means of arrival: Comments: RS to obs 33 [facility]10-02-2024 Emergency department Note* Rosario Leone RN - 12/26/2023 3:59 PM EDT Bed: 28 Expected date: Expected time: Means of arrival: Comments: RS to obs 33 * Fadi Mata DO - 12/26/2023 12:59 PM EDT Images from the original note were not [...] bone infection. He is aware that the outerand inner ear are already infected. Confirms difficulty [...] 02/21/2023 Performed by Buddy Ureña MD at [facility] 01/02/2020 PROSTATE BIOPSY PROSTATECTOMY [...] Family History Problem Relation Age of Onset [place]'s disease Mother Asthma Mother Heart disease Father [...] cervical nodes Nose: Nose normal. Mouth/Throat: Lips: [place]. Mouth: Mucous membranes are moist. Pharynx: Oropharynx [...] 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 [facility] Medical Decision Making Agustina Sandoavl) documented for Dr. Kash Mata. Chart Reviewed. [...] and they are agreeable with the plan ADDITIONAL PROVIDER NOTES At this time the patient has objective [...] signing this emergency patient record, the Emergency Physician/ENGINEERING PROJECT MANAGER/PA-C attests that all entries made into the electronic medical record by kala Pan prior to the Physician/ENGINEERING PROJECT MANAGER/PA-C signature reflect an accurate accounting of the evaluation and care rendered by that Jess hopecy Physician/ENGINEERING PROJECT MANAGER/PA-C. The Emergency Physician/ENGINEERING PROJECT MANAGER/PA-C assumes full responsibility for those entries. The Emergency Physician/ENGINEERING PROJECT MANAGER/PA-C also attests that any patient testing or treatment that was instituted by nursing staff in accordance to Emergency Department Preemptive Guidelines have been reviewed and unless so stated elsewhere in this patient chart, the Physician/ENGINEERING PROJECT MANAGER/PA-C agrees with the testing and care provided. Provider Statement: By electronically signing this emergency patient record, the Emergency Physician/ENGINEERING PROJECT MANAGER/PA-C attests that all entries made into the electronic medical record by the scribe prior to the Physician/ENGINEERING PROJECT MANAGER/PA-C signature reflect an accurate accounting of the evaluation and care rendered by that Emergency Physic hodan/ENGINEERING PROJECT MANAGER/PA-C. The Emergency Physician/ENGINEERING PROJECT MANAGER/PA-C assumes full responsibility for those entries. Hellen Genao 12/26/23 1614 Fadi Mata DO 12/27/23 0727 * Lu Samayoa RN - 12/26/2023 12:32 PM EDT Patient sent to the from the ENT office to be admitted for mastoiditis; ENT requesting CT, IV antibiotics and admission to medicine; right ear noted to have a gauze dressing inside it; patient alert and oriented X 4; ambulatory [facility] History and physical note* Trey Lundy MD - 12/26/2023 3:54 PM EDT Images from the original note were not included. [facility] History & Physical: 12/26/2023 Patient Name: [...] of right side 12/26/2023 Pneumonia Prostate cancer ([facility]) Visual impairment Past Surgical History: Procedure Laterality Date APPENDECTOMY CARDIAC CATHETERIZATION COLONOSCOPY COLONOSCOPY DIAGNOSTIC / SCREENING N/A 02/21/2023 Performed by Buddy Ureña MD at [facility] 01/02/2020 PROSTATE BIOPSY PROSTATECTOMY [...] min Stress: No Stress Concern Present (05/03/2020) [employer] - Occupational Stress Questionnaire Feeling of Stress : Not at all Social Connections: Socially Integrated (05/03/2020) Social Connection and Isolation Panel [NHANES] Frequency of Communication with Friends and Family: More than three times a week Frequency of Social Gatherings with Friends and Family: Twice a week Attends Hindu Services: 1 to 4 times per year [...] Family History Problem Relation Age of Onset [place]'s disease Mother Asthma Mother Heart disease Father [...] >70, pharmacologic prophylaxis not indicated, SCDs only [facility]10-02-2024 History and physical note* Trey Lundy MD - 12/26/2023 3:54 PM EDT Images from the original note were not included. [facility] Hospital[facility] History & Physical: 12/26/2023 Patient Name: [...] of right side 12/26/2023 Pneumonia Prostate cancer ([facility]) Visual impairment Past Surgical History: Procedure Laterality [...] min Stress: No Stress Concern Present (05/03/2020) [employer] - Occupational Stress Questionnaire Feeling of Stress : Not at all Social Connections: Socially Integrated (05/03/2020) Social Connection and Isolation Panel [NHANES] Frequency of Communication with Friends and Family: More than three times a week Frequency of Social Gatherings with Friends and Family: Twice a week Attends Hindu Services: 1 to 4 times per year [...] Family History Problem Relation Age of Onset [place]'s disease Mother Asthma Mother Heart disease Father [...] not indicated, SCDs only [facility] Consult note* Eryn-Stephy DO Sloan - 12/26/2023 2:25 PM EDTAssociated Order(s): IP CONSULT TO E[facility] SUBJECTIVE: [...] multiple otic drops. A right myringotomy with PEtube placement was performed in office today, reportedly with significant difficulty. He states that this issue began roughly one-month ago after swimming in a pond. He states that at the onset he experienced intense right-sided ear pain radiating to the face and jaw, ear fullness andhearing loss. He also endorses headache and constant, [...] (hearing loss) Hyperlipidemia Hypertension Pneumonia Prostate cancer ([facility]) Visual impairment Past Surgical History: Procedure Laterality Date APPENDECTOMY CARDIAC CATHETERIZATION COLONOSCOPY COLONOSCOPY DIAGNOSTIC / SCREENING N/A 02/21/2023 Performed by Buddy Ureña MD at [facility] JO[facility] REPLACEMENT 01/02/2020 PROSTATE BIOPSY PROSTATECTOMY REPLACEMENT TOTAL KNEE Right TOOTH EXTRACTION VASECTOMY 1988 Family History Problem Relation Age of Onset [place]'s disease Mother Asthma Mother Heart disease Father [...] min Stress: No Stress Concern Present (05/03/2020) [employer] - Occupational Stress Questionnaire Feeling of Stress : Not at all Social Connections: Socially Integrated (05/03/2020) Social Connection and Isolation Panel [NHANES] Frequency of Communication with Friends and Family: More than three times a week Frequency of Social Gatherings with Friends and Family: Twice a week Attends Hindu Services: 1 to 4 times per year [...] % infusion 250 mL/hr intravenous Continuous Fadi Mata DO Current Outpatient Medications Medication Sig Dispense [...] tablet Take as directed 21 tablet 0 dumsbrbr-vguy-AR-calcium &mins (THERAGRAN-M) 9 mg iron-400 mcg tablet Take 1 tablet by mouth inthe morning. omega-3 fatty acids-fish oil 300-1,000 mg capsule Take 1,200 mg by mouth daily. omeprazole (PriLOSEC) 20 mg capsule take 2 capsules by mouth every morning 180 capsule 2 simvastatin (ZOCOR) 20 mg tablet TAKE ONE TABLET BY MOUTH EVERY MORNING 90 tablet 3 tobramycin-dexAMETHasone (Tobradex) ophthalmic solution Administer 4 drops to the right ear every 4(four) hours while awake for 7 days. 10 mL 0 traMADoL (ULTRAM) 50 mg tablet Take 1 tablet (50 mg total) by mouth every 8 (eight) hours as neededfor pain for up to 5 days. 15 [...] cm (5' 10 ) Wt 94.2 kg (207lb 10.8 oz) SpO2 96% BMI 29.80 kg/m [...] obvious skin lesions, Normal hearing in exam room,No visible erythema or swelling overlying mastoid region., [...] follow Discussed with Dr. Sloan MILLER PA-C [facility] Office during business hours After Hours Answering Service Please note that parts of this chart were generated using voice recognition [employer] dictation software. Although every effort was made to ensure the accuracy of this automated dredge deckhand, some errors in dredge deckhand may have occurred. Mag Miller PA-C 12/26/23 6832 Mag Miller PA-C 12/26/23 2478 IBalaji DO, personally performed the face to face diagnostic evaluation on this patient. Ihave reviewed the MARTÍN's History, Exam, and MDM and agree with the assessment and plan as written. Balaji Lisa DO 12/26/20232104 [facility] [place] Work Phone: [phone] Physician Emergency department Note* Fadi Mata DO - 12/26/2023 12:59 PM EDT Images from the original note were not [...] bone infection. He is aware that the outerand inner ear are already infected. Confirms difficulty [...] (hearing loss) Hyperlipidemia Hypertension Pneumonia Prostate cancer ([facility]) Visual impairment Past Surgical History: [...] Family History Problem Relation Age of Onset [place]'s disease Mother Asthma Mother Heart disease Father [...] cervical nodes Nose: Nose normal. Mouth/Throat: Lips: [place]. Mouth: Mucous membranes are moist. Pharynx: Oropharynx [...] 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 [facility] Medical Decision Making Agustina Sandoval) documented [...] and they are agreeable with the plan ADDITIONAL PROVIDER NOTES At this time the patient has objective [...] signing this emergency patient record, the Emergency Physician/ENGINEERING PROJECT MANAGER/PA-C attests that all entries made into the electronic medical record by kala Pan prior to the Physician/ENGINEERING PROJECT MANAGER/PA-C signature reflect an accurate accounting of the evaluation and care rendered by that [facility] Physician/ENGINEERING PROJECT MANAGER/PA-C. The Emergency Physician/ENGINEERING PROJECT MANAGER/PA-C assumes full responsibility for those entries. The Emergency Physician/ENGINEERING PROJECT MANAGER/PA-C also attests that any patient testing or treatment that was instituted by nursing staff in accordance to Emergency Department Preemptive Guidelines have been reviewed and unless so stated elsewhere in this patient chart, the Physician/ENGINEERING PROJECT MANAGER/PA-C agrees with the testing and care provided. Provider Statement: By electronically signing this emergency patient record, the Emergency Physician/ENGINEERING PROJECT MANAGER/PA-C attests that all entries made into the electronic medical record by the scribe prior to the Physician/ENGINEERING PROJECT MANAGER/PA-C signature reflect an accurate accounting of the evaluation and care rendered by that Emergency Physic hodan/ENGINEERING PROJECT MANAGER/PA-C. The Emergency Physician/ENGINEERING PROJECT MANAGER/PA-C assumes full responsibility for those entries. Hellen Genao 12/26/23 1614 Fadi Mata DO 12/27/23 0727 [facility]10-02-2024 Emergency department Triage note* Lu Samayoa RN - 12/26/2023 12:32 PM EDT Patient sent to the from the ENT office to be admitted for mastoiditis; ENT requesting CT, IV antibiotics and admission to medicine; right ear noted to have a gauze dressing inside it; patient alert and oriented X 4; ambulatory [facility]10-02-2024 History of Present illness Narrative* sOcar Johnson MD - 12/26/2023 11:00 AM EDT [facility] - ENT [address] [place] [address], [address] [place] [id number] SUBJECTIVE: Patient ID: Yue Delgadillo is a 73 y.o. male presents today for Chief Complaint Patient presents with Follow-up HPI: The patient is a 73-year-old male who is here with his . He was last seen in the office yesterday. He has been diagnosed with a right otitis externa. A wick was placed in his ear on 12/20/[address] Forbes. The wick was removed yesterday. His ear [...] (hearing loss) Hyperlipidemia Hypertension Pneumonia Prostate cancer ([facility]) Visual impairment Past Surgical History: Procedure Laterality Date APPENDECTOMY CARDIAC CATHETERIZATION COLONOSCOPY COLONOSCOPY DIAGNOSTIC / SCREENING N/A 02/21/2023 Performed by Buddy Ureña MD at [facility] 01/02/2020 PROSTATE BIOPSY PROSTATECTOMY REPLACEMENT TOTAL KNEE Right TOOTH EXTRACTION VASECTOMY 1988 Family History Problem Relation Age of Onset [place]'s disease Mother Asthma Mother Heart disease Father [...] min Stress: No Stress Concern Present (05/03/2020) [employer] - Occupational Stress Questionnaire Feeling of Stress : Not at all Social Connections: Socially Integrated (05/03/2020) Social Connection and Isolation Panel [NHANES] Frequency of Communication with Friends and Family: More than three times a week Frequency of Social Gatherings with Friends and Family: Twice a week Attends Hindu Services: 1 to 4 times per year [...] tablet Take as directed 21 tablet 0 ahzwkyet-vnkm-LM-calcium &mins (THERAGRAN-M) 9 mg iron-400 mcg tablet Take 1 tablet by mouth inthe morning. omega-3 fatty acids-fish oil 300-1,000 mg capsule Take 1,200 mg by mouth daily. omeprazole (PriLOSEC) 20 mg capsule take 2 capsules by mouth every morning 180 capsule 2 simvastatin (ZOCOR) 20 mg tablet TAKE ONE TABLET BY MOUTH EVERY MORNING 90 tablet 3 tobramycin-dexAMETHasone (Tobradex) ophthalmic solution Administer 4 drops to the right ear every 4(four) hours while awake for 7 days. 10 mL 0 traMADoL (ULTRAM) 50 mg tablet Take 1 tablet (50 mg total) by mouth every 8 (eight) hours as neededfor pain for up to 5 days. 15 [...] point the patient will go [facility]. I spoke to the ER physician. He will require Ciprodex drops in the right ear 4 drops twice a day and IV antibiotics consisting of Unasyn. We will also order a CT scan of his temporal boneswith and without contrast. The patient was taken [...] and benefits of treatment options, impressions, importance ofcompliance with treatment and risk factor reductions. The patient verbalized understanding and agreement to the plan. Electronically signed by OSCAR JOHNSON MD Please note that parts of this chart were generated using voice recognition [employer] dictation software. Although every effort was made to ensure the accuracy of this automated dredge deckhand, some errors in dredge deckhand may have occurred. documented in [facility] History of Present illness Narrative* Oscar Johnson MD - 12/25/2023 10:00 AM EDT [facility] - ENT [address] , [address] [place] [id number] SUBJECTIVE: Patient ID: Yue Delgadillo is a [...] (hearing loss) Hyperlipidemia Hypertension Pneumonia Prostate cancer ([facility]) Visual impairment Past Surgical History: Procedure Laterality Date APPENDECTOMY CARDIAC CATHETERIZATION COLONOSCOPY COLONOSCOPY DIAGNOSTIC / SCREENING N/A 02/21/2023 Performed by Buddy Ureña MD at [facility] 01/02/2020 PROSTATE BIOPSY PROSTATECTOMY REPLACEMENT TOTAL KNEE Right TOOTH EXTRACTION VASECTOMY 1988 Family History Problem Relation Age of Onset [place]'s disease Mother Asthma Mother Heart disease Father [...] min Stress: No Stress Concern Present (05/03/2020) [employer] - Occupational Stress Questionnaire Feeling of Stress : Not at all Social Connections: Socially Integrated (05/03/2020) Social Connection and Isolation Panel [NHANES] Frequency of Communication with Friends and Family: More than three times a week Frequency of Social Gatherings with Friends and Family: Twice a week Attends Hindu Services: 1 to 4 times per year [...] tablet Take as directed 21 tablet 0 wnnllncj-guay-GN-calcium &mins (THERAGRAN-M) 9 mg iron-400 mcg tablet Take 1 tablet by mouth inthe morning. omega-3 fatty acids-fish oil 300-1,000 mg capsule Take 1,200 mg by mouth daily. omeprazole (PriLOSEC) 20 mg capsule take 2 capsules by mouth every morning 180 capsule 2 simvastatin (ZOCOR) 20 mg tablet TAKE ONE TABLET BY MOUTH EVERY MORNING 90 tablet 3 tobramycin-dexAMETHasone (Tobradex) ophthalmic solution Administer 4 drops to the right ear every 4(four) hours while awake for 7 days. 10 [...] Normal floor of mouth, Normal oral mucosa, andNormal anterior tongue Oropharynx: Normal mucosa, Normal soft palate, Normal hard palate, Normal uvula, Normal tonsils, and Normal Vallecula Neck: Neck supple, No adenopathy, Thyroid normal in size without nodules or tenderness, No palpableneck masses, and Carotids normal Respiratory: No stridor, [...] bulging of the superior portion of the tympanicmembrane. Four drops of Ciprodex eardrops were placed [...] compliance with treatment and risk factor reductions. Thepatient verbalized understanding and agreement to the plan. Electronically signed by OSCAR JOHNSON MD Please note that parts of this chart were generated using voice recognition [employer] dictation software. Although every effort was made to ensure the accuracy of this automated dredge deckhand, some errors in dredge deckhand may have occurred. Leela Evans MA 12/25/2323 Selam Campoverde CMA 12/25/23 0941 documented in this encounterKindred Hospital LimaLYCEEM [id number] History of Present illness Narrative* YOVANY Morel - 12/20/2023 9:15 AM EDT [facility] [address] [place] [facility] [id number] SUBJECTIVE: Patient ID ([id number]): Yue Delgadillo is a 73 y.o. male presents today for Chief Complaint Patient presents with Ear Swelling HPI: Yue is seen in follow up today for right otitis externa. Patient was last seen on 12/17/2023. He was prescribed ofloxacin, topical steroid and clotrimazole at his last appointment. They havebeen attempting to administer drops but state they are running down the side of his neck after administration despite lying on side for 5 minutes. He still has persistent right otalgia. He has been using tramadol for pain control. His Augmentin course finished today. They deny any other ENT concerns. He is here for evaluation. HISTORY: Past Medical History: Diagnosis Date Arthritis Asthma GERD (gastroesophageal reflux disease) Gout HL (hearing loss) Hyperlipidemia Hypertension Pneumonia Prostate cancer ([facility]) Visual impairment Past Surgical History: Procedure Laterality Date APPENDECTOMY CARDIAC CATHETERIZATION COLONOSCOPY COLONOSCOPY DIAGNOSTIC / SCREENING N/A 02/21/2023 Performed by Buddy Ureña MD at [facility] 01/02/2020 PROSTATE BIOPSY PROSTATECTOMY REPLACEMENT TOTAL KNEE Right TOOTH EXTRACTION VASECTOMY 1988 Family History Problem Relation Age of Onset [place]-Dade's disease Mother Asthma Mother Heart disease Father [...] min Stress: No Stress Concern Present (05/03/2020) [employer] - Occupational Stress Questionnaire Feeling of Stress : Not at all Social Connections: Socially Integrated (05/03/2020) Social Connection and Isolation Panel [NHANES] Frequency of Communication with Friends and Family: More than three times a week Frequency of Social Gatherings with Friends and Family: Twice a week Attends Hindu Services: 1 to 4 times per year [...] per tablet Take 1 tablet by mouth in the morningand 1 tablet before bedtime. Do all this for 10 days. 20 tablet 0 aspirin 81 mg Take 1 tablet (81 mg total) by mouth in the morning. clotrimazole (LOTRIMIN) 1 % external solution Apply 1 Application topically in the morning and 1 Application before bedtime. Do all this for 7 days. 3 drops. 30 mL 0 fluticasone propionate (FLOVENT HFA) 110 mcg/actuation inhaler Inhale 2 puffs once daily. Patient only takes when sick 12 g 3 hydrocortisone-acetic acid (VOSOL-HC) otic solution Administer 4 drops to the right ear 3 (three) times a day. 10 mL 0 ypychboh-qiha-BV-calcium &mins (THERAGRAN-M) 9 mg iron-400 mcg tablet Take 1 tablet by mouth inthe morning. ofloxacin (FLOXIN) 0.3 % otic solution Administer 4 drops into ears in the morning and 4 drops before bedtime. Do all this for 7 days. 10 mL 3 omega-3 fatty acids-fish oil 300-1,000 mg capsule Take 1,200 mg by mouth daily. omeprazole (PriLOSEC) 20 mg capsule take 2 capsules by mouth every morning 180 capsule 2 simvastatin (ZOCOR) 20 mg tablet TAKE ONE TABLET BY MOUTH EVERY MORNING 90 tablet 3 traMADoL (ULTRAM) 50 mg tablet Take 1 tablet (50 mg total) by mouth every 8 (eight) hours as neededfor pain for up to 5 days. 15 tablet 0 amoxicillin-pot clavulanate (AUGMENTIN) 875-125 mg per tablet Take 1 tablet by mouth every 12 (twelve) hours for 14 days. 28 tablet 0 tobramycin-dexAMETHasone (Tobradex) ophthalmic solution Administer 4 drops to the right ear every 4(four) hours while awake for 7 days. 10 mL 0 No current facility-administered medications for this visit. REVIEW OF SYSTEMS: Review of Systems Constitutional: Negative for chills. HENT: Positive for ear pain. Negative for congestion, ear discharge and sore throat. Eyes: Negative for redness. Respiratory: Negative for shortness of breath. Cardiovascular: Negative for chest pain. Gastrointestinal: Negative for vomiting. Skin: Negative for rash. Neurological: Positive for dizziness. Negative for headaches. Psychiatric/Behavioral: Negative for confusion. Data Reviewed: PHYSICAL EXAMINATION: Ht 172.7 cm (5' 8 ) Wt 93.9 kg (207 lb) BMI 31.47 kg/m Constitutional: Healthy, alert, cooperative, and in no distress and normal ablility to communicate . Voice normal quality. Head/Face: Normocephalic, without obvious abnormality, salivary glands normal, atraumatic, sinuses nontender, and facial nerve intact Eyes: No gross abnormalities., EOMI, no nystagmus, and no lid ptosis Ear: RIGHT: decreased hearing, external ear normal, and canal abnormal due to otorrhea. See procedure note Heart: Regular rate Respiration: No stridor, Normal respiratory effort. Neurologic: Grossly normal Alert Oriented X 3 Affect normal CERUMEN REMOVAL PROCEDURE NOTE Yue Delgadillo was taken to the procedure room and placed in the supine position. Using binocular microscopy, visualization of the right external canal showed drainage. The cerumen was removed with suction. Once the ear canal was cleaned, the tympanic membrane was visualized. Findings: Erythematous and edematous EAC. Dr. Forbes came in to evaluate ear and debride further. Please see her note. Procedure was successful and and tolerated well. ASSESSMENT/PLAN: Yue was seen today for ear swelling. Diagnoses and all orders for this visit: Acute swimmer's ear of right side - tobramycin-dexAMETHasone (Tobradex) ophthalmic solution; Administer 4 drops to the right ear every 4 (four) hours while awake for 7 days. - amoxicillin-pot clavulanate (AUGMENTIN) 875-125 mg per tablet; Take 1 tablet by mouth every 12 (twelve) hours for 14 days. Plan: Otorrhea was removed with suction in office by Dr. Forbes. Granulation tissue was noted by right TM.An ear wick was also placed in office. Tobradex was sent to patient's pharmacy. Please use 4 drops twice daily for 7 days to right ear. Augmentin was refilled today for an additional 14 days. Please continue to monitor for night sweats, fever and chills. If these develop over the weekend, please proceed to [facility] for evaluation. Follow up as previously scheduled. Call sooner as needed. Counseling: The following elements of medical decision making were considered during this visit: Reviewed/ordered new medications, Discussed results with consultants Dr. Forbes, Reviewed and summarized previous records, and History and physical. The patient was counseled regarding prognosis, risks and benefits of treatment options, impressions, importance of compliance with treatment and risk factor reductions. The patient verbalized understanding and agreement to the plan. Please note that parts of this chart were generated using voice recognition [employer]*Modal dictation software. Although every effort was made to ensure the accuracy of this automated dredge deckhand, some errors in dredge deckhand may have occurred. YOVANY Morel 12/20/23 0955 * Russell Forbes MD - 12/20/2023 9:15 AM EDT Patient with worsening ear pain and drainage, concerned that drops keep falling out of his ear. No fevers or neurological issues. Ear Debridement and Wick placement PROCEDURE NOTE Yue Delgadillo was taken to the procedure room and placed in the supine position. Using binocular microscopy, visualization of the right external canal showed drainage. The drainagewas removed with suction. Once the ear canal was cleaned, the tympanic membrane was partially visualized. Findings: Keratin debris in the ear canal suctioned. BC junction is normal. However, medially just lateral to the eardrum, patient has granulation tissue and swelling of the ear canal significantly narrowing his medial ear canal. A small Part of the TM is visualized and is intact. Wick placed atraumatically. Patient had pain, but overall tolerated the procedure well. Recommend antibiotic and steroid drops, TobraDex prescribed. Recommend oral steroids and antibiotics given persistent otitis externa, prescribed. Recommend Tylenol and ibuprofen for pain control, asked patient to check with his PCP to make sure he takes a safe dose. Has follow up established for Sunday. Instructed patient to let us know if he is not improved by Sunday, so we can see him sooner. Over the weekend, if he has worsening symptoms especially if he is febrile and has systemic symptoms, would recommend going to the emergency room for imaging and IV antibiotics. documented in this [facility]24 Instructions* Patient Instructions* YOVANY Morel - 12/20/2023 9:15 AM EDT Otorrhea was removed with suction in office by Dr. Forbes. Granulation tissue was noted by right TM.An ear wick was also placed in office. Tobradex was sent to patient's pharmacy. Please use 4 drops twice daily for 7 days to right ear. Augmentin was refilled today for an additional 14 days. Please continue to monitor for night sweats, fever and chills. If these develop over the weekend, please proceed to [facility] for evaluation. Follow up as previously scheduled. Call sooner as needed. documented in this encounterK[facility]-25-2024 Miscellaneous Notes* Telephone Encounter - Russell Forbes MD - 12/19/2023 9:57 AM EDT Called listed number to discuss patient's persistent pain. HIPAA compliant voice mail left. Would recommend holding off on the ofloxacin drops. Continue steroid and antifungal drops. Patient will need repeat debridements more frequently since his symptoms are refractory, once every 2-3 days. Has anappointment with Yue tomorrow. documented in this encounterK[facility]-25-2024 Telephone encounter Note* Telephone Encounter - Russell Forbes MD - 12/19/2023 9:57 AM EDT Called listed number to discuss patient's persistent pain. HIPAA compliant voice mail left. Would recommend holding off on the ofloxacin drops. Continue steroid and antifungal drops. Patient will need repeat debridements more frequently since his symptoms are refractory, once every 2-3 days. Has anappointment with Yue tomorrow. [facility] History of Present illness Narrative* Russell Forbes MD - 12/17/2023 1:00 PM EDT Images from the original note were not included. [facility] [address] [facility] [id number] SUBJECTIVE: Patient ID ([id number]): Yue Delgadillo is a 73 y.o. male presents today for Chief Complaint Patient presents with Otitis Externa HPI 12/17/23: Yue Is presenting for ear drainage ongoing for 2-4 weeks. No inciting events. Has intense pain on the right side of his ear and face and constant drainage and fullness. He has tried neomycin polymyxin drops and hydrocortisone drops without improvement. No previous history of similar issues. HISTORY: Past Medical History: Diagnosis Date Arthritis [...] Family History Problem Relation Age of Onset [place]'s disease Mother Asthma Mother Heart disease Father [...] min Stress: No Stress Concern Present (05/03/2020) [employer] - Occupational Stress Questionnaire Feeling of Stress : Not at all Social Connections: Socially Integrated (05/03/2020) Social Connection and Isolation Panel [NHANES] Frequency of Communication with Friends and Family: More than three times a week Frequency of Social Gatherings with Friends and Family: Twice a week Attends Hindu Services: 1 to 4 times per year [...] per tablet Take 1 tablet by mouth in the morningand 1 tablet before bedtime. Do all this for 10 days. 20 tablet 0 aspirin 81 mg Take 1 tablet (81 mg total) by mouth in the morning. fluticasone propionate (FLOVENT HFA) 110 mcg/actuation inhaler Inhale 2 puffs once daily. Patient only takes when sick 12 g 3 hydrocortisone-acetic acid (VOSOL-HC) otic solution Administer 4 drops to the right ear 3 (three) times a day. 10 mL 0 fzpjjjxn-utwh-UA-calcium &mins (THERAGRAN-M) 9 mg iron-400 mcg tablet Take 1 tablet by mouth inthe morning. omega-3 fatty acids-fish oil 300-1,000 mg capsule Take 1,200 mg by mouth daily. omeprazole (PriLOSEC) 20 mg capsule take 2 capsules by mouth every morning 180 capsule 2 simvastatin (ZOCOR) 20 mg tablet TAKE ONE TABLET BY MOUTH EVERY MORNING 90 tablet 3 traMADoL (ULTRAM) 50 mg tablet Take 1 tablet (50 mg total) by mouth every 6 (six) hours as needed for pain. 12 tablet 0 No current facility-administered medications for this visit. REVIEW OF SYSTEMS: Review of Systems Constitutional: Negative for chills and fever. HENT: Positive for ear discharge, ear pain and tinnitus. Eyes: Negative for redness. Respiratory: Negative for cough and shortness of breath. Gastrointestinal: Negative for nausea and vomiting. Endocrine: Negative for heat intolerance. Musculoskeletal: Positive for neck pain and neck stiffness. Negative for gait problem. Neurological: Positive for dizziness and headaches. Hematological: Bruises/bleeds easily. Data Reviewed: I reviewed the past medical history, surgical history, allergies, medications, labs, social history, all pertinent notes. I reviewed the PCP note, patient with otitis externa, treated with Augmentin and tramadol. Referreddue to refractory nature of his infection. Audio Dec 17 2023 PHYSICAL EXAMINATION: Temp 36.3 C (97.4 F) Resp 17 Ht 174.6 cm (5' 8.75 ) Wt 94.1 kg (207 lb 6.4 oz) BMI 30.85 kg/m Constitutional: Healthy, alert, cooperative, and in no distress and normal ablility to communicate . Voice normal quality. Head/Face: Normocephalic, without obvious abnormality, salivary glands normal, atraumatic, sinuses nontender, and facial nerve intact Eyes: No gross abnormalities., EOMI, no nystagmus, and no lid ptosis Ear: RIGHT: external ear normal but tender, canal full of wet debris, see below. LEFT: external ear normal, canal normal, and TM normal without fluid or infection Nose: External nose appears normal, septum midline, normal mucosa, normal turbinates, and no nasal polyps or masses Oral: normal teeth, normal lips, normal gums, normal hard palate, normal anterior tongue, and oral mucosa moist Oropharynx: normal-appearing mucosa, no pharyngitis, no exudate, and normal soft palate and uvula TMJ: no crepitus, or trismus Neck:normal, supple, no adenopathy, thyroid normal in size, no nodules or tenderness, no neck masses palpable, and carotids normal Respiration: No stridor, Normal respiratory effort. Neurologic: Grossly normal Alert Oriented X 3 Affect normal Cranial nerves 2 -12 grossly intact CERUMEN REMOVAL PROCEDURE NOTE Yue Delgadillo was taken to the procedure room and placed in the supine position. Using binocular microscopy, visualization of the right external canal showed drainage. The cerumen was removed with suction. Once the ear canal was cleaned, the tympanic membrane was visualized. Findings: Wet purulent debris filling the entire ear canal, suctioned. Retracted and erythematous TM with desquamation, no obvious perforation. Procedure was successful ASSESSMENT/PLAN: Yue was seen today for otitis externa. Diagnoses and all orders for this visit: Acute swimmer's ear, unspecified laterality - [facility] - [place], [place] Plan: Patient is a 73-year-old male presenting with right-sided otitis externa refractory to Augmentin, neomycin polymyxin and VoSol that started 3 weeks ago after swimming in a pond. Thick wet debris in ear, debrided. TM retracted with myringitis present. Conductive hearing loss present. Recommend ofloxacin, topical steroid, and clotrimazole. Patient with a ciprofloxacin allergy (patient is not sure if he has a true allergy, if he truly gets hives with oral cipro), I discussed the topical ofloxacin may not lead to an allergic reaction, but if it does to stop it immediately and seekmedical care. Patient was given tramadol by his primary care provider for refractory ear pain. Patient is requesting refills. Refill given for 5 days. Would not recommend further narcotic use. Repeat debridement within 1 week. Dry ear precautions until then. Counseling given, management options discussed, all questions answered. Please note that parts of this chart were generated using voice recognition M*Modal dictation software. Although every effort was made to ensure the accuracy of this automated dredge deckhand, some errors in dredge deckhand may have occurred. documented in this encounterK[facility]09-23-2024 History of Present illness Narrative* Georgia Benoit, CHARLENE - 12/17/2023 12:30 PM EDT AUDIOLOGIC EVALUATION Reason for visit: CC: Patient reports the onset of right ear fullness for the last 3 weeks. He feels it has gotten worse over the last few weeks. He was diagnosed with swimmer's ear by his PCP. He has been treated with drops and an antibiotic with no resolve in his symptoms. He notes pain in his jaw/behind his ear. He has significant right ear pain. He notes the hearing in his right ear is muffled. He is hearing apulsatile tinnitus in his right ear. He has had intermittent right ear otorrhea. He has no concernsfor his left ear. He has a history of occupational noise exposure. HISTORY: Concerns with hearing: Right ear Tinnitus: Right ear, pulsatile Aural Fullness: Right ear, constant Otalgia: Right ear, constant Otorrhea: Right ear Other significant history: None RESULTS: Otoscopic Evaluation: Right Ear: Otorrhea Left Ear: Unremarkable Due to findings during otoscopic evaluation, patient was sent to ENT for management prior to audiologic testing. Patient returned for audiogram today. Results are below. Immittance Measures: Right Ear: Unable to maintain hermetic seal for measurement Left Ear: Type A Pure Tone Audiometry: Right Ear: Moderate sloping to severe MHL Left Ear: Normal hearing 250-2000Hz sloping to severe SNHL Asymmetry noted: right ear AC poorer ear, BC symmetric Reliability: good Speech Audiometry: SRT/MOLASSES AND CARAMEL OPERATOR in good agreement WRS: Right Ear: Excellent (100%) Left Ear: Excellent (100%) RECOMMENDATIONS: Follow up with Dr. Russell Forbes Retest following otologic management Eliseo Patten, [facility] Catalog Library Assistant documented in this [facility]09-18-2024 Miscellaneous Notes* Telephone Encounter - CHRIS Mckeon - 12/12/2023 9:08 AM EDT Cherise called stating the patient's jaw pain has gotten a little better but he is still having severe ear pain. She is wanting to know if you can place the referral to ENT since it takes them longer to schedule. * Telephone Encounter - Brianna Brunner MD - 12/12/2023 9:08 AM EDT Referral placed documented in this encounterK[facility]-18-2024 Telephone encounter Note* Telephone Encounter - CHRIS Mckeon - 12/12/2023 9:08 AM EDT Cherise called stating the patient's jaw pain has gotten a little better but he is still having severe ear pain. She is wanting to know if you can place the referral to ENT since it takes them longer to schedule. [facility]-18-[facility] Telephone encounter Note* Telephone Encounter - Brianna Brunner MD - 12/12/2023 9:08 AM EDT Referral placed [facility] History of Present illness Narrative* Brianna Brunner MD - 12/10/2023 2:00 PM EDT Subjective Patient ID: Yue Delgadillo is a 73 y.o. male. He continues having worsening symptoms of his right external otitis. His ear feels plugged now. He is having pain in his jaw and down into the glans of his neck. No fever. He is having trouble sleeping at night due to the pain. OTC analgesics have not helped. He was initially on Cortisporin and that was changed to VoSol HC because he thought the Cortisporin was making his ear worse. The following portions of the patient's history were reviewed and updated as appropriate: allergies, current medications, past medical history, past social history, and problem list. Review of Systems Objective Physical Exam Constitutional: Comments: He does not feel well but is not febrile or toxic HENT: Left Ear: Tympanic membrane and ear canal normal. Ears: Comments: He now has whitish debris deeper in his ear canal and significant inflammation of the earcanal. No definite swelling of the canal. Neck: Comments: Tender in the right neck. No cellulitis. Neurological: Mental Status: He is alert. Assessment/Plan He will switch back to the Cortisporin for Pseudomonas coverage. If he does not improve with treatment he may need ENT opinion to vacuum the debris from his ear canal. Diagnoses and all orders for this visit: Acute swimmer's ear of right side - amoxicillin-pot clavulanate (AUGMENTIN) 875-125 mg per tablet; Take 1 tablet by mouth in the morning and 1 tablet before bedtime. Do all this for 10 days. - traMADoL (ULTRAM) 50 mg tablet; Take 1 tablet (50 mg total) by mouth every 6 (six) hours as needed for pain. documented in this encounterK[facility]09-11-2024 Miscellaneous Notes* Telephone Encounter - Denise Norwood - 12/05/2023 8:49 AM EDT Cherise called, Yue's ear is hurting worse than when he was here and he is still putting the drops in still. Please advise * Telephone Encounter - Brianna Brunner MD - 12/05/2023 8:49 AM EDT I sent in some different drops documented in this encounterK[facility]09-11-2024 Telephone encounter Note* Telephone Encounter - Denise Norwood - 12/05/2023 8:49 AM EDT Cherise called, Yue's ear is hurting worse than when he was here and he is still putting the drops in still. Please advise [facility]-11-[facility] Telephone encounter Note* Telephone Encounter - Brianna Brunner MD - 12/05/2023 8:49 AM EDT I sent in some different drops [facility] History of Present illness Narrative* Brianna Brunner MD - 11/30/2023 11:15 AM EDT Subjective Patient ID: Yue Delgadillo is a 73 y.o. male. Comes in with pain in his right ear. Started a couple days after swimming in a pond. He is hearing okay. No head congestion or allergy symptoms. He has put some alcohol drops in his ear but it has not really helped. Starting to hurt a little bit under his ear in his neck. No fever or systemic symptoms. The following portions of the patient's history were reviewed and updated as appropriate: allergies, current medications, past medical history, past social history, and problem list. Review of Systems Objective Physical Exam Constitutional: Appearance: Normal appearance. HENT: Left Ear: Tympanic membrane and ear canal normal. Ears: Comments: Irritation and some swelling of his right external canal. Some discomfort with motion of the tragus. His eardrum looks fine. Nose: No congestion. Lymphadenopathy: Cervical: No cervical adenopathy. Neurological: Mental Status: He is alert. Assessment/Plan If his symptoms are not resolved with treatment or something more develops he will let me know. Diagnoses and all orders for this visit: Acute swimmer's ear of right side - qydrelku-ihblvuhwf-LC (CORTISPORIN) otic solution; Administer 3 drops to the right ear 3 (three) times a day for 7 days. documented in this encounterK[facility]05-14-2024 Miscellaneous Notes* Telephone Encounter - CHRIS Mckeon - 08/07/2023 8:30 AM EDT Patient's called stating patient has a bad cough and congestion. His cough is productive and bringing up colored phlegm. She is wanting to know if you could send something to the pharmacy for him. Please advise. documented in this encounterK[facility]05-14-2024 Telephone encounter Note* Telephone Encounter - CHRIS Mckeon - 08/07/2023 8:30 AM EDT Patient's called stating patient has a bad cough and congestion. His cough is productive and bringing up colored phlegm. She is wanting to know if you could send something to the pharmacy for him. Please advise. [facility]-12-20[facility] Miscellaneous Notes* Telephone Encounter - Chanelle Santamaria CMA - 07/06/2023 6:29 AM EDT Refill request documented in this encounterK[facility]04-12-2024 Telephone encounter Note* Telephone Encounter - Chanelle Santamaria CMA - 07/06/2023 6:29 AM EDT Refill request [facility]-05-20[facility] Miscellaneous Notes* Telephone Encounter - Denise Norwood - 05/29/2023 3:52 PM EST Cherise called and said that Yue isn't much better, he is still have a productive cough, and still blowing stuff out of his nose, and still has a nagging headache. She said she is worried about pneumonia. She is wondering what else can be done, or do you need to see him? Please advise * Telephone Encounter - Brianna Brunner MD - 05/29/2023 3:52 PM EST I sent him a script for a different antibiotic. * Telephone Encounter - Denise Norwood - 05/29/2023 3:52 PM EST Spoke with Cherise and let her know that a script was called in for Yue. documented in this encounterK[facility]03-05-2024 Telephone encounter Note* Telephone Encounter - Denise Norwood - 05/29/2023 3:52 PM EST Cherise called and said that Yue isn't much better, he is still have a productive cough, and still blowing stuff out of his nose, and still has a nagging headache. She said she is worried about pneumonia. She is wondering what else can be done, or do you need to see him? Please advise [facility] Telephone encounter Note* Telephone Encounter - Brianna Brunner MD - 05/29/2023 3:52 PM EST I sent him a script for a different antibiotic. [facility] Telephone encounter Note* Telephone Encounter - Denise Norwood - 05/29/2023 3:52 PM EST Spoke with Cherise and let her know that a script was called in for Yue. [facility]-27-2024 Miscellaneous Notes* Telephone Encounter - Chanelle Santamaria CMA - 05/22/2023 9:52 AM EST Refill request documented in this encounterK[facility]02-27-2024 Telephone encounter Note* Telephone Encounter - Chanelle Santamaria CMA - 05/22/2023 9:52 AM EST [facility]ill request [facility] History of Present illness Narrative* Brianna Brunner MD - 05/21/2023 11:15 AM EST Subjective Patient ID: Yue Delgadillo is a 73 y.o. male. He was recently around his grandchildren who were sick. He has a history of reactive airway and bronchitis type illnesses associated with upper respiratory illnesses. He started over the weekend withhead congestion and pressure as well as posterior drainage. He has some cough. He started on his Flovent inhaler. He has a little bit of myalgia but no fever or chills. No acute shortness of breath. Also his left shoulder continues to bother him. He has been doing onrpd-et-jpckji exercises but it has not gotten any better. He recalls no specific injury but this may have had something to do with throwing hay willy. No numbness or tingling down the arm. He does feel pain with certain movements from behind his shoulder down to his elbow. No loss of strength. The following portions of the patient's history were reviewed and updated as appropriate: allergies, current medications, past medical history, past social history, past surgical history, and problemlist. Review of Systems Objective Physical Exam Constitutional: Comments: Does not feel well but is not febrile or toxic. HENT: Right Ear: Tympanic membrane normal. Left Ear: Tympanic membrane normal. Nose: Congestion and rhinorrhea present. Mouth/Throat: Pharynx: No oropharyngeal exudate or posterior oropharyngeal erythema. Pulmonary: Comments: Good air flow. Transmitted upper airway sounds and a drainage type cough. Musculoskeletal: Comments: Pain with resistance to abduction and with internal and external rotation at the left shoulder. Lymphadenopathy: Cervical: No cervical adenopathy. Neurological: Mental Status: He is alert. Comments: No neurological deficit in the left upper extremity Assessment/Plan He will continue on his Flovent. Further pending his course. Diagnoses and all orders for this visit: Bronchitis - azithromycin (ZITHROMAX) 250 mg tablet; Take 2 tablets the first day, then 1 tablet daily for 4 days. Acute pain of left shoulder - Ambulatory referral to Orthopedic Surgery ([facility]); [facility] Miscellaneous Notes* Telephone Encounter - Chanelle Santamaria CMA - 05/06/2023 6:59 AM EST [facility]ill [facility] Telephone encounter Note* Telephone Encounter - Chanelle Santamaria CMA - 05/06/2023 6:59 AM EST Refill request [facility] History of Present illness Narrative* Brianna Brunner MD - 04/23/2023 8:30 AM EST Subjective SUBJECTIVE: Patient ID: Yue Delgadillo is [...] past medical history, past social history, past surgicalhistory and problem list. 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 Left lower leg: No edema. Comments: Pvikc-np-cyycyf is preserved in his left shoulder. He does have some increase in his painover the deltoid area with resistance to abduction. Neurological: General: No focal deficit present. Mental Status: He is alert and oriented to person, place, and time. Assessment/Plan ASSESSMENT/PLAN Health maintenance reviewed. Medication reviewed. Labs ordered. Routine follow- up annually for wellness. Diagnoses and all orders for this visit: Routine general medical examination at a health care facility Essential hypertension - Comprehensive metabolic panel; Future Prostate cancer ([facility]) Chronic gout involving toe without tophus, unspecified cause, unspecified laterality - Uric acid; Future Mixed hyperlipidemia - Lipid panel; Future Asthma in adult, mild persistent, uncomplicated [facility] Miscellaneous Notes* Addendum Note - Chanelle Santamaria CMA - 04/23/2023 8:30 AM ESTAddended by: CHANELLE SANTAMARIA on: 04/23/2023 09:51 AM Modules accepted: Orders [facility] Note* Addendum Note - Chanelle Santamaria CMA - 04/23/2023 8:30 AM ESTAddended by: CHANELLE SANTAMARIA on: 04/23/2023 09:51 AM Modules accepted: Orders [facility] Miscellaneous Notes* Telephone Encounter - Chanelle Santamaria CMA - 04/04/2023 6:29 AM EST [facility] request [facility] Telephone encounter Note* Telephone Encounter - Chanelle Santamaria CMA - 04/04/2023 6:29 AM EST [facility] Hospital Discharge instructions Patient Education 03/23/2023 09:14:32 Urinary Incontinence Urinary Incontinence Urinary incontinence refers to a condition in which a person is unable to control where and when topass urine. A person with this condition will urinate involuntarily. This means that the person urinates when he or she does not mean to. What are the causes? This condition may be caused by: Medicines. Infections. Constipation. Overactive bladder muscles. Weak bladder muscles. Weak pelvic floor muscles. These muscles provide support for the bladder, intestine, and, in women,the uterus. Enlarged prostate in men. The prostate [...] a small amount, or constantly dribbling urine (overflowincontinence). Urinating because you cannot get to the [...] fiber include beans, whole grains, and fresh fruitsand vegetables. Behavioral changes, such as: ?Pelvic floor [...] nerve stimulation). ?For women, using a medical voucher clerk to prevent urine leaks. This is a small, tampon-like, disposabledevice that is inserted into the urethra. ?Injecting [...] right after experiencing incontinence. General instructions Take qifx-gus-twlhuxx and prescription medicines only as told by [...] important. Where to find more information National Mcpherson of Diabetes and Digestive and Kidney Diseases: www.niddk.nih.gov [place] [employer]: www.urologyhealth.org Contact a health care [...] is unable to control where and when topass urine. This condition may be caused by medicines, infection, weak bladder muscles, weak pelvic floor muscles, enlargement of the prostate (in men), or surgery. Factors such as older age, obesity, and childbirth, menopause, neurological diseases, andchronic coughing may increase your risk for developing [...] provider. Document Revised: 10/15/2020 Document Reviewed: 10/15/2020 [employer] Patient Education 2022 [employer]. Follow Up Care 07/10/2022 09:54:02 With:VARSHA MCPHERSON, Maia Marie, URL Address: [address] [place] [id number]- When: Unknown [facility] 04-17-2023 Hospital Discharge instructions Patient Education 07/10/2022 08:11:20 [...] very early stages, before it spreads and becomesharder to treat and before you would start [...] exam in which a health care provider usesa gloved finger to check prostate size (digital [...] a flexible tube with a small camera isinserted into the rectum. CT colonography. This test uses X-rays and a contrast dye to check the colon for polyps. If a polypis found, you may need to have a [...] if anything looks unusual. Men with a vjqqce-nuzr-kvqhyg risk for skin cancer may want to see a environmental health specialist (brim greaser operator) for an annual body check. Where to find more information National Cancer Mcpherson: https://www.cancer.gov/about-cancer/screening Centers for Disease Control and Prevention: https://www.cdc.gov/cancer/dcpc/prevention/screening.htm [place] [employer]: https://www.cancer.org/latest-news/8-ewaqec-otdmuirwz-yahic-epc-zrb.html Contact a health care provider if: You [...] 12/07/2016 Document Revised: 11/29/2018 Document Reviewed: 12/07/2016 [employer] Patient Education 2019 [employer] Follow Up Care 07/06/2022 15:18:38 With:VARSHA MCPHERSON, Maia Marie, URL Address: [facility] [address] , [place] [address]- When: Unknown [facility] 11-04-2022 Hospital Discharge instructions Patient Education 01/27/2022 08:57:58 [...] camera on the end (urethroscope) is used tolook at the urethra. How is this treated? [...] reconstructed. Follow these instructions at home: Take jyxv-smb-wslamiy and prescription medicines only as told by your health care provider. If you were prescribed an antibiotic medicine, take it as told by your health care provider. Do notstop taking the antibiotic even if you start [...] 04/07/2016 Document Revised: 10/23/2018 Document Reviewed: 10/23/2018 [employer] Patient Education 2020 [employer]. Follow Up Care 07/25/2021 09:40:34 With:VARSHA MCPHERSON, Maia Marie, URL Address: [address] [place], [place] [id number]- When: Unknown [facility] 05-02-2022 Hospital Discharge instructions Patient Education 07/25/2021 09:31:42 [...] sure to eat fewer calories than your bodyneeds, you should lose weight. Ask your health care provider what a healthy weight is for you. For calorie counting to work, you will need to eat the right number of calories in a day in order to lose a healthy amount of weight per week. A dietitian can help you determine how many calories youneed in a day and will give you suggestions on how to reach your calorie goal. A healthy amount of weight to lose per week is usually 1 2 lb (0.5 0.9 kg). This usually means thatyour daily calorie intake should be reduced by [...] label. If a food does not have aNutrition Facts label, try to look up the calories online or ask your dietitian for help. Remember that calories are listed per serving. If you choose to have more than one serving of a food, you will have to multiply the calories per serving by the amount of servings you plan to eat. Forexample, the label on a package of bread [...] you how many calories you have left forthe day to meet your goal. What are [...] fat free foods. These foods sometimes have thesame amount of calories or more calories than the full fat versions. They also often have added sugar, starch, or salt, to make up for flavor that was removed with the fat. Find a way of tracking calories that works for you. Get creative. Try different apps or programs ifwriting down calories does not work for you. What are some portion control tips? Know how many calories are in a serving. This will help you know how many servings of a certain food you can have. Use a measuring cup to measure serving sizes. You could also try weighing out portions on a kitchenscale. With time, you will be able to [...] serving size may be smaller than what youare used to eating. Check the source of the calories. Make sure the food you are eating is high in vitamins and proteinand low in saturated and trans fats. Shopping [...] steamed. Stay away from items that are buttered,battered, fried, or served with cream sauce. Items [...] a serving of cooked rice is cup orabout the size of half a baseball. Knowing serving sizes will help you be aware of how much food you are eating at restaurants. The list below tells you how big or small some common portion sizes arebased on everyday objects: ?1 oz 4 stacked [...] label. If a food does not have aNutrition Facts label, try to look up the [...] 03/12/2006 Document Revised: 11/29/2018 Document Reviewed: 02/09/2017 [employer] Patient Education 2020 [employer]. 07/25/2021 09:31:28 Prostate Cancer Screening Prostate Cancer [...] done before cancer symptoms start. Screening can helpto identify cancer at an early stage, when [...] if you need screening if you have oneof these risk factors: ?Being of -[place] descent. ?Having a family history of prostate [...] you: Are older than age 55. Are -[place]. Have a father, brother, or uncle who [...] not tell you if your cancer needs adela treated. Slow-growing prostate cancer may not need [...] 12/21/2017 Document Revised: 02/22/2018 Document Reviewed: 12/21/2017 [employer] Patient Education 2020 [employer] 07/25/2021 09:31:23 Prostate Cancer Prostate Cancer The [...] who: Are older than age 65. Are -[place]. Are obese. Have a family history of [...] prostate and lymph nodes with the help ofa robotic arm that is controlled by a [...] cells. Follow these instructions at home: Take nhug-uuy-yrrxvdh and prescription medicines only as told by your health care provider. Maintain a healthy diet. Get plenty of sleep. Consider joining a support group for men who have prostate cancer. Meeting with a support group mayhelp you learn to cope with the stress [...] prostate cancer. Meeting with a support group mayhelp you learn to cope with the stress of having cancer. This information is not intended to replace advice given to you by your health care provider. Make sure you discuss any questions you have with your health care provider. Document Released: 03/12/2006 Document Revised: 02/22/2018 Document Reviewed: 11/20/2016 [employer] Patient Education [employer] Follow Up Care 04/04/2021 09:41:32 With:VARSHA MCPHERSON, Maia Marie, URL Address: [facility] [address] [place] [phone] When:01/25/2022 Comments:follow up 6 months with PSA [facility] [place] 04-13-2021 NoteHNO ID: [id number] Author: Palmira Garcia Service: ? 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 Appointment Type:URO Office Visit Diagnostic Tests Pending * PSA Total 07/25/21 [facility] evaluation + Plan note Future Appointments Appointment Date:07/31/2022 09:15:00 AM Scheduled Provider:[facility]ADDOX [facility] Office Visit Diagnostic Tests Pending * PSA Total 05/24/22 [facility] evaluation + Plan note Future Appointments Appointment Date:01/12/2023 08:30:00 AM Scheduled Provider:Maia MADDOX [facility] Office Visit Diagnostic Tests Pending * PSA Total 07/10/22 [facility] evaluation + Plan note Future Appointments Appointment Date:03/31/2024 08:45:00 AM Scheduled Provider:Maia MADDOX MD Location:[facility] Appointment Type:URO Office Visit Diagnostic Tests Pending * PSA Total 01/25/24 [facility] evaluation + Plan note Future Appointments Appointment Date:03/30/2025 08:45:00 AM Scheduled Provider:Maia MADDOX MD Location:[facility] Appointment Type:URO Office Visit Diagnostic Tests Pending * PSA Total 03/31/24 [facility] evaluation + Plan note Future Appointments Appointment Date:05/26/2024 11:30:00 AM Scheduled Provider:Maia [facility]ADDOX [facility] Office Visit Appointment Date:06/13/2024 09:15:00 AM Scheduled Provider:[facility]X [facility] Office Visit Appointment Date:03/30/2025 08:45:00 AM Scheduled Provider:Maia [facility]ADDOX [facility] Future Appointments Appointment Date:06/30/2024 09:00:00 AM Scheduled Provider:Maia MADDOX MD [facility] Office Visit Appointment Date:03/30/2025 08:45:00 AM Scheduled Provider:Maia MADDOX MD Location:[facility] [place] Appointment Type[facility]O [facility] Future Appointments Appointment Date:03/30/2025 08:45:00 AM Scheduled Provider:Maia MADDOX MD [facility] Evaluation note* Diagnosis Routine general medical examination at a health care facility- Primary Prostate cancer ([facility]) Malignant neoplasm of prostate Essential hypertension Unspecified essential hypertension Mixed hyperlipidemia [facility] Diagnosis Routine general medical examination at a health care facility- Primary Essential hypertension Unspecified essential hypertension Prostate cancer ([facility]) Malignant neoplasm of prostate Chronic gout involving toe without tophus, unspecified cause, unspecified laterality Mixed hyperlipidemia Asthma in adult, mild persistent, uncomplicated [facility] Diagnosis Bronchitis- Primary Bronchitis, not specified as acute or chronic Acute pain of left shoulder [facility] Diagnosis Acute swimmer's ear of [...] right side [facility] Diagnosis Acute swimmer's ear of right side- Primary [facility]* Diagnosis Mastoiditis of right side- Primary Mastoiditis of right side 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 Acute swimmer's ear of right side Essential hypertension Unspecified essential hypertension Hyperlipidemia Other and unspecified hyperlipidemia Asthma in adult, mild persistent, uncomplicated [facility] Diagnosis Right ear pain- Primary Unspecified otalgia Mixed conductive and 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 Mastoiditis of right side [facility]* Diagnosis Acute swimmer's ear of right side- Primary [facility]* Diagnosis Acute swimmer's ear, unspecified laterality- Primary [facility]* Diagnosis Acute swimmer's ear, unspecified laterality- Primary [facility]* Diagnosis Edema of right upper arm- Primary [facility]* Diagnosis Acute swimmer's ear, unspecified laterality Mixed conductive and 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 [facility]* Diagnosis Mixed conductive and 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- Primary Sensorineural hearing loss (SNHL) of left ear with restricted hearing of right ear Otorrhea, right Right ear pain Unspecified otalgia [facility]* Diagnosis Acute swimmer's ear of right side- Primary documented in [facility] encounter [facility]* Diagnosis Tinnitus, bilateral- Primary Unspecified tinnitus Mixed conductive and 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 Abnormal CT scan, sinus Patulous eustachian tube of right ear documented [facility]* Diagnosis Tinnitus, bilateral- Primary Unspecified tinnitus Mixed conductive and 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 Sensorineural hearing loss (SNHL) of left ear with restricted hearing of right ear documented [facility] noteNo assessment information available [facility] Work Phone: Evaluation note* Diagnosis Seborrheic keratosis- Primary Seborrheic keratosis, inflamed Melanocytic nevus of trunk Benign neoplasm of skin of trunk, except scrotum Knutson angioma History of nevus excision History of basal cell carcinoma Personal history of other malignant neoplasm of skin [facility] Diagnosis Tinnitus, bilateral- Primary Unspecified tinnitus Mixed conductive and 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 Sensorineural hearing loss (SNHL) of left ear with restricted hearing of right ear [facility] Diagnosis Left inguinal pain- Primary Abdominal pain, left lower quadrant [facility] Diagnosis Urticaria- Primary Unspecified urticaria documented [facility]* Diagnosis Sensation of fullness in right ear- Primary Tinnitus, bilateral Unspecified tinnitus Mixed conductive and 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 Sensorineural hearing loss (SNHL) of left ear with restricted hearing of right ear documented [facility] Diagnosis Sensation of fullness in right ear- Primary Tinnitus, bilateral Unspecified tinnitus Mixed conductive and 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 Sensorineural hearing loss (SNHL) of left ear with restricted hearing of right ear documented [facility] Narrative No data available for this section [facility] Hospital Discharge instructions No data available for this section [facility] InstructionsNot on filedocumented in this encounter [facility] [...] available for this section [facility] reason for referral (narrative)* Consultation (Routine) - Pending ReviewSpecialtyDiagnoses / ProceduresReferred By ContactReferred To ContactOrthopedic Surgery Diagnoses Acute pain of left shoulder Brianna Brunner MD [address] [place] [address], [place] [address] Pillo Mohamud MD [address] [place] [address] Referral IDStatusReasonStart DateExpiration DateVisits RequestedVisits [id number] Review Specialty Services Required / [facility] for referral (narrative)* Consultation (Routine) - Pending ReviewSpecialtyDiagnoses / ProceduresReferred By ContactReferred To Contact Diagnoses Mastoiditis of right side Georgie Menendez MD [address] [id number] Referral IDStatusReasonStart DateExpiration DateVisits RequestedVisits [id number] * Misc (Routine) - Pending ReviewSpecialtyDiagnoses / ProceduresReferred By ContactReferred To Contact Diagnoses Mastoiditis of right side Procedures Follow-up with primary care provider Georgie Menendez MD [address] [place] [address] Referral IDStatusReasonStart DateExpiration DateVisits RequestedVisits [id number] * Misc (Routine) - Pending ReviewSpecialtyDiagnoses / ProceduresReferred By ContactReferred To Contact Procedures Adult diet Georgie Menendez MD [address] [place] [address] Referral IDStatusReasonStart DateExpiration DateVisits RequestedVisits [id number] [facility] (n[facility]ative)* Consultation (Routine) - Pending ReviewSpecialtyDiagnoses / ProceduresReferred By ContactReferred To ContactOtolaryngology Diagnoses Acute swimmer's ear, unspecified laterality Brianna Brunner MD [address] [place] [address], [address] [place] [address] [facility] [facility] [address] [address] Referral IDStatusReasonStart DateExpiration DateVisits RequestedVisits [id number] Review Specialty Services Required / [facility] Summary Purpose Family History No Family History Records FoundNo Family History Records FoundNo Family History Records FoundNo Family History Records Found No data available for this section No Family History Records FoundNo Family History Records FoundNo Family History Records Found No data available for this section No Family History Records FoundNo Family History Records Found No data available for this section No data available for this section No Family History Records Found No data available for this section No Family History Records FoundNo Family History Records Found Advance Directives Date ActivatedDate BefzdmrdlqoEhhntipa80/2/2024 4:14 PMDate ActivatedDate InactivatedComments05/14/2017 5:39 PM2 8:12 PMDate ActivatedDate CfptvqjomezMwiptxho81/2/2024 4:14 PM10 5:30 PMCode StatusDate Activated Date InactivatedCommentsFull Code05/14/2017 5:39 PM2 8:12 PMDate ActivatedDate InactivatedComments05/14/2017 5:39 05/15/2017 8:12 PMCode Status Date ActivatedDate InactivatedCommentsFull Code05/14/2017 5:39 PM2 8:12 PMDate ActivatedDate LotodjqygfrYbpzohuj01/2/2024 4:14 PM10 5:30 PMDate ActivatedDate InactivatedComments05/14/2017 5:39 PM2 8:12 PMDate ActivatedDate InactivatedComments05/14/2017 5:39 05/15/2017 8:12 PM Advance Directive Response Recorded Date/ Time Advance Directives No April 12:18pm Additional Source Comments (unrecognized sect ion and content) No Status Records FoundNo Status Records FoundNo Status Records FoundNo Status Records FoundNo Status Records FoundNo Status Records FoundNo Status Records FoundNo Status Records FoundNo Status Records FoundNo Status Records FoundNo Status Records FoundNo Status Records Found INFORMATION SOURCE (unrecogn ized section and content) DATE CREATED AUTHOR 09/14/2017 [facility] DATE CREATED AUTHOR AUTHOR'S ORGANIZ ATION 05/07/2020 [facility] DATE CREATED AUTHOR AUTHOR'S ORGANIZ ATION 04/24/2021 [facility] DATE CREATED AUTHOR AUTHOR'S ORGANIZ ATION 07/13/2022 [facility] DATE CREATED AUTHOR AUTHOR'S ORGANIZ ATION 05/26/2023 [facility] DATE CREATED AUTHOR AUTHOR'S ORGANIZ ATION 01/04/2024 [facility] DATE CREATED AUTHOR AUTHOR'S ORGANIZ ATION 02/04/2024 [facility] DATE CREATED AUTHOR AUTHOR'S ORGANIZ ATION 05/03/2024 [facility] DATE CREATED AUTHOR AUTHOR'S ORGANIZ ATION 05/21/2024 [facility] DATE CREATED AUTHOR AUTHOR'S ORGANIZ ATION 07/23/2024 [facility] DATE CREATED AUTHOR AUTHOR'S ORGANIZ ATION 10/23/2024 [facility] DATE CREATED AUTHOR AUTHOR'S ORGANIZ ATION 02/03/[address] [facility] Patient Care team informatio n (unrecognized section and content) Team MemberRelationshipSpecialtyStart DateEnd Date Brianna Brunner MD [address] [place] [address], [address] [place] [address] PCP - GeneralPediatrics11/17/16Team MemberRelationshipSpecialtyStart DateEnd Date Brianna Brunner MD [address] [place] [address], [address] [place] [address] PCP - GeneralPediatrics11/17/16Team MemberRelationshipSpecialtyStart DateEnd Date Brianna Brunner MD [address] [place] [address], [address] [place] [address] PCP - GeneralPediatrics11/17/16Team MemberRelationshipSpecialtyStart DateEnd Date Brianna Brunner MD [address] [place] [address], [address] [place] [address] PCP - GeneralPediatrics11/17/16Team MemberRelationshipSpecialtyStart DateEnd Date Brianna Brunner MD [address] [place] [address], [address] [place] [address] PCP - GeneralPediatrics8Team MemberRelationshipSpecialtyStart DateEnd Date Brianna Brunner MD [address] [place] [address], [address] [place] [address] PCP - GeneralPediatrics8Team MemberRelationshipSpecialtyStart DateEnd Date Brianna Brunner MD [address] [place] [address], [address] [place] [address] PCP - GeneralPediatrics11/17/16Team MemberRelationshipSpecialtyStart DateEnd Date Brianna Brunner MD [address] [place] [address], [address] [place] [address] PCP - GeneralPediatrics8Team MemberRelationshipSpecialtyStart DateEnd Date Brianna Brunner MD [address] [place] [address], [address] [place] [address] PCP - GeneralPediatrics8Team MemberRelationshipSpecialtyStart DateEnd Date Brianna Brunner MD [address] [place] [address], [address] [place] [address] PCP - GeneralPediatrics8Team MemberRelationshipSpecialtyStart DateEnd Date Brianna Brunner MD [address] [place] [address], [address] [place] [address] PCP - GeneralPediatrics8Team MemberRelationshipSpecialtyStart DateEnd Date Brianna Brunner MD [address] [place] [address], [address] [place] [address] PCP - GeneralPediatrics8Team MemberRelationshipSpecialtyStart DateEnd Date Brianna Brunner MD [address] [place] [address], [address] [place] [address] PCP - GeneralPediatrics8Team MemberRelationshipSpecialtyStart DateEnd Date Brianna Brunner MD [address] [place] [address], [address] [place] [address] PCP - GeneralPediatrics8Team MemberRelationshipSpecialtyStart DateEnd Date Brianna Brunner MD [address] [place] [address], [address] [place] [address] PCP - GeneralPediatrics8Team MemberRelationshipSpecialtyStart DateEnd Date Brianna Brunner MD [address] [place] [address], [address] [place] [address] PCP - GeneralPediatrics8Team MemberRelationshipSpecialtyStart DateEnd Date Brianna Brunner MD [address] [place] [address], [address] [place] [address] PCP - GeneralPediatrics82517Team MemberRelationshipSpecialtyStart DateEnd Date Brianna Brunner MD [address] [place] [address], [address] [place] [address] PCP - GeneralPediatrics11/17/16Team MemberRelationshipSpecialtyStart DateEnd Date Brianna Brunner MD [address] [place] [address], [address] [place] [address] PCP - GeneralPediatrics11/17/16Team MemberRelationshipSpecialtyStart DateEnd Date Brianna Brunner MD [address] [place] [address], [address] [place] [address] PCP - GeneralPediatrics11/17/16Team MemberRelationshipSpecialtyStart DateEnd Date rBianna Brunner MD [address] [place] [address], [address] [place] [address] PCP - GeneralPediatrics11/17/16Team MemberRelationshipSpecialtyStart DateEnd Date Brianna Brunner MD [address] [place] [address], [address] [place] [address] PCP - GeneralPediatrics11/17/16Te MemberRelationshipSpecialtyStart DateEnd Date Brianna Brunner MD [address] [place] [address], [address] [place] [address] PCP - GeneralPediatrics11/17/16 Team Status: Inactive Member Role Status Dates Maia Maddox MD Attending Provider Active St art: May 15, 2024 End: May 15, 2024Team MemberRelationshipSpecialtyStart DateEnd Date Brianna Brunner MD [address] [place] [address], [address] [place] [address] PCP - GeneralPediatrics11/17/16Team MemberRelationshipSpecialtyStart DateEnd Date Brianna Brunner MD [address] [place] [address], [address] [place] [address] PCP - GeneralPediatrics11/17/16Team MemberRelationshipSpecialtyStart DateEnd Date Brianna Brunner MD [address] [place] [address], [address] [place] [address] PCP - GeneralPediatrics11/17/16 Reason for Visit (unrecogniz ed section and content) ReasonCommentsMed RefillReasonCommentsAnnual [id number] Exam wellnessReasonCommentsURIChest congestion, headacheShoulder PainLeft shoulder ReasonOnset DateCommentsMed [id number] swimmer's ear of right side1 week follow upReasonCommentsFollow-upReasonCommentsEaracheRight ear, was swimming in a pond, radiates down his neckReasonCommentsEar Problem SpecialtyDiagnoses / ProceduresReferred By ContactReferred To Contact Diagnoses Mastoiditis of right side 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 Trey Lundy MD [address] [place] [address] Referral IDStatusReasonStart DateExpiration DateVisits RequestedVisits [id number] DateCommentsTransition Of Care4Reason CommentsmastoiditisReasonOnset DateCommentsMed [id number] continued right ear painRadiates down neck and jawDizzinessReasonCommentsOtitis ExternaSpecialtyDiagnoses / ProceduresReferred By ContactReferred To Contact Otolaryngology Diagnoses Acute swimmer's ear, unspecified laterality Brianna Brunner MD [address] [place] [address], [address] [place] [address] [facility] [facility] [address] [place] [address] Referral IDStatusReasonStart DateExpiration DateVisits RequestedVisits [id number] Specialty Services Required [id number] ProblemReasonCommentsEar SwellingReason CommentsHospital Follow-upReasonCommentsSkin CheckReasonCommentseustachian tube dysfunctionReasonCommentsEar Fullness Scheduled Active and Recently Administ ered Medications (unrecognized section and content) Medication Order//09/2023 allopurinoL (ZYLOPRIM) tablet 300 mg 300 mg, oral, Daily, First dose on Hazel 12/27/23 at 0900, Look-alike/sound-alike medication - verify indication for use. * 0959 (Given - Provider: Kayleigh Alfredo RN) * 1008 (Given - Provider: Kayleigh Alfredo RN) * 0933 (Given - Provider: Mey Del Angel RN) amLODIPine (NORVASC) tablet 10 mg 10 mg, oral, Daily, First dose on Hazel 12/27/23 at 0945, Look-alike/sound-alike medication - verify indication for use. Avoid grapefruit juice. * 0959 (Given - Provider: Kayleigh Alfredo RN) * 1008 (Given - Provider: Kayleigh Alfredo RN) * 0933 (Given - Provider: Mye Del Angel, SHERWIN) aspirin EC tablet 81 mg 81 mg, oral, Daily, First dose on Hazel 12/27/23 at 0900, Do not crush or chew. * 0959 (Given - Provider: Kayleigh Alfredo RN) * 1008 (Given - Provider: Kayleigh Alfredo RN) * 0933 (Given - Provider: Mey Del Angel, SHERWIN) atorvastatin (LIPITOR) tablet 10 mg 10 mg, oral, Daily, First dose on Hazel 24 at 0900, Look-alike/sound-alike medication - verify indication for use. * 0527 (Given - Provider: Selam Pantoja RN) * 0522 (Given - Provider: Selam Pantoja RN) * 0521 (Given - Provider: Selam Pantoja RN) cefEPime (MAXIPIME) 2,000 mg in sodium chloride 0.9 % 100 mL IVPB-MBP(Linked Group 1) 2,000 mg, intravenous, at 25 mL/hr, Administer over 4 Hours, Every 8 hours, First dose on Sun12/27/23 at 2130, ADD-VANTAGE/MBP- Discard 24 hours after activating; dissolve drug prior to administration. Protect dry powder vial from light., Indication: Other, Specify: otomastoiditis * 0115 (Stop Bag - Provider: Selam Pantoja RN) * 0537 (New Bag - Provider: Selam Pantoja RN) * 0937 (Stop Bag - Provider: Kayleigh Alfredo RN) * 1524 (New Bag - Provider: Kayleigh Alfredo RN) * 1924 (Stop Bag - Provider: Selam Pantoja RN) * 2334 (New Bag - Provider: Selam Pantoja RN) * 0334 (Stop Bag - Provider: Selam Pantoja RN) * 1014 (New Bag - Provider: Kayleigh Alfredo, SHERWIN) * 1414 (Stop Bag - Provider: Kayleigh Alfredo, SHERWIN) * 1829 (New Bag - Provider: Kayleigh Alfredo, SHERWIN) * 2229 (Stop Bag - Provider: Selam Pantoja RN) * 0227 (New Bag - Provider: Selam Pantoja RN) * 0627 (Stop Bag - Provider: Selam Pantoja RN) * 1033 (New Bag - Provider: Mey Del Angel RN) * 1433 (Stop Bag - Provider: Mey Del Angel RN) ciprofloxacin-dexAMETHasone (CIPRODEX) otic suspension 4 drop 4 drop, right ear, 2 times daily, First dose on Sun12/26/23 at 2100, Look-alike/sound-alike medication - verify indication for use. * 0959 (Given - Provider: Kayleigh Alfredo RN) * 211 (Given - Provider: Selam Pantoja RN) * 1009 (Given - Provider: Kayleigh Alfredo, SHERWIN) * 2011 (Given - Provider: Selam Pantoja RN) * 0933 (Given - Provider: Mey Del AngelSHERWIN) enoxaparin (LOVENOX) syringe 40 mg 40 mg, subcutaneous, Daily, First dose on Sun12/28/23 at 1430, Look-alike/sound-alike medication - verify indication for use. * 0959 (Given - Provider: Kayleigh Alfredo RN) * 1008 (Given - Provider: Kayleigh Alfredo RN) * 0933 (Given - Provider: Mey Del Angel, SHERWIN) pantoprazole (PROTONIX) EC tablet 40 mg 40 mg, oral, Daily, First dose on Sun12/27/23 at 0600, Look-alike/sound-alike medication - verify indication for use. If patient is receiving enteral feeding, consider alternative PPI or continue IV pantoprazole until the delayed-release tablet can be taken orally, Indication: GERD * 0527 (Given - Provider: Selam Pantoja RN) * 0522 (Given - Provider: Selam Pantoja RN) * 0521 (Given - Provider: Selam Pantoja RN) sodium chloride 0.9 % flush 10 mL(Linked Group 2) 10 mL, intravenous, Every 12 hours, First dose on Sun12/31/23 at 1145, PICC line. Administer 10 mL per lumen; 10 mL total (for single lumen flush) * 1145 (Not Given - Provider: Mey Del Angel RN - Reason: Other - Comment: line not placed yet) sodium chloride 0.9 % flush 3 mL 3 mL, intravenous, Every 12 hours scheduled, First dose on Sun12/26/23 at 2100 * 0900 (Not Given - Provider: Kayleigh Alfredo RN - Reason: IV infusing) * 2109 (Given - Provider: Selam Pantoja RN) * 1009 (Given - Provider: Kayleigh Alfredo, SHERWIN) * 2014 (Given - Provider: Selam Pantoja RN) * 1029 (Given - Provider: Mey Del Angel, SHERWIN) Medication Order//09/2023 dextrose (GLUTOSE) 40 % gel 15 g [...] glucose less than 70 mg/dL and unconscious orNPO with IV access, Starting on Sun12/26/23 at [...] VESICANT (RED) Warning: HYPERTONIC solution. flu vacc [id number] 6mos up(PF) (FLULAVAL/FLUZONE/FLUARIX TRIV) injection syringe 0.5 mL (COMPLETED) 0.5 mL, intramuscular, During hospitalization, immunization, Starting on Sun12/26/23 at 1518, For 1dose, If administered intramuscularly, use the following sites [...] that requires ICU. Shake well before use. * 8106 (Given - Provider: Mey Del Angel RN) glucagon HCL injection 1 mg 1 mg, intramuscular, As needed, low blood sugar, blood glucose less than 70 mg/dL and unconscious or NPO without IV access., Starting on Sun12/26/23 at 1719, If conscious and not NPO, immediately follow with meal tray or high protein (7Grams) snack if tray not available. If NPO, initiate IV 5% Dextr ose/Water at 100 mL/hr and contact prescriber for [...] on Sun12/31/23 at 1136, PICC line. Administer 10mL to each lumen before and after each use. Administer 10 mL per lumen; 10 mL total (for single lumen flush) sodium chloride 0.9 % flush 20 mL(Linked Group 2) 20 mL, intravenous, As needed, line care, Starting on Sun12/31/23 at 1136, PICC line. Administer 20mL to each lumen after lab draws, blood [...] Minutes, As needed, line care, line care afterIVPB administration, Starting on 10/2/24 at 1719 sodium chloride 0.9 % infusion 20 mL/hr, intravenous, Continuous PRN, to maintain patency of lines, Starting on Sun12/26/23 at 1719 * 1031 (New Bag - Provider: Mey Del Angel RN) traMADoL (ULTRAM) tablet 75 mg 75 mg, oral, Every 8 hours PRN, severe pain - pain scale 7-10, Starting on Sun12/26/23 at 1719, Look-alike/sound-alike medication - verify indication for use. * 0259 (Given - Provider: Selam Pantoja RN) * 2331 (Given - Provider: Selam Pantoja, RN) * 2237 (Given - Provider: Selam Pantoja, SHERWIN) Order Group 1: cefEPime (MAXIPIME) 2,000 mg [...] on Sun12/31/23 at 1136, PICC line. Administer 10mL to each lumen before and after each use. Administer 10 mL per lumen; 10 mL total (for single lumen flush) And sodium chloride 0.9 % flush 20 mLJump to med 20 mL, intravenous, As needed, line care, Starting on 12/31/23 at 1136, PICC line. Administer 20mL to each lumen after lab draws, blood infusion, and meds known to precipitate. Administer 20 mL per lumen; 20 mL total (for single lumen flush) Goals (unrecognized section and content) Goals may be documented in a n alternate section FOR RECORDS PERTAINING TO PATIENTS WHO ARE [...] BE BASED ON THE PRIMARY CLINICAL RECORDS. [facility] provides no warranty or guarantee of the accuracy or completeness of information in this document.
[2025-03-23 10:49] LABS: Prostate Specific Antigen Dx <0.13 ng/mL (<=4.00)
== END 2025-03-23 09:31 | disposition home or self-care (01) ==
LOC: LAB 09:34
PROVIDERS: PCP Internal Medicine; Visit Provider Urology
DX: Z85.46 Personal history of malignant neoplasm of prostate (principal)
CPT/HCPCS: 36415; 84153